=== PATIENT | female | born 1945 | race Caucasian/White ===

== ENCOUNTER → 2017-04-16 | Outpatient (CLI) | payer MEDICARE, BC, SELFPAY | PROVIDERS: Visit Provider Internal Medicine Adolescent Medicine | DX: R92.8 Other abnormal and inconclusive findings on diagnostic imaging of breast (principal) | CPT/HCPCS: 76641; 77065; G0206 ==

== ENCOUNTER → 2017-05-09 17:07 | Outpatient (CLI) | payer MEDICARE, BC, SELFPAY ==
[2017-05-09 17:42] LABS: Basophils % 0.5 % (0.1-2.0); Eosinophils # 0.2 K/mm3 (0.0-0.4); Eosinophils % 2.5 % (0.1-12.0); Hematocrit 37.6 % (37.0-47.0); Lymphocytes # 2.1 K/mm3 (0.7-4.5); Lymphocytes % 28.6 K/mm3 (10-50); Mean Corpuscular Hemoglobin 28.6 pg (27.0-31.2); Mean Corpuscular Volume 89.3 fl (81-99); Mean Platelet Volume 7.5 fl (7.4-10.4); Monocytes # 0.4 K/mm3 (0.1-1.0); Monocytes % 4.9 % (1.7-9.3); Neutrophils # 4.7 K/mm3 (1.8-7.8); Neutrophils % 63.5 % (37.0-80.0); Platelet Count 263 K/mm3 (142-424); Red Blood Count 4.21 M/mm3 (4.20-5.40); Red Cell Distribution Width 12.9 % (11.5-17.5); White Blood Count 7.4 K/mm3 (4.8-10.8)
[2017-05-09 18:26] LABS: Hemoglobin A1C 9.3 % (0.0-7.0)
[2017-05-09 19:13] LABS: Alanine Aminotransferase 48 U/L (12-78); Albumin Level 4.1 gm/dL (3.4-5.0); Albumin/Globulin Ratio 1.1 (1.1-1.8); Alkaline Phosphatase 150 U/L (46-116); Amylase 22 U/L (25-125); Anion Gap 16.5 mEq/L (5-15); Aspartate Amino Transferase 67 U/L (15-37); Bilirubin,Total 0.4 mg/dL (0.2-1.0); Blood Urea Nitrogen 21 mg/dL (7-18); Calcium 8.8 mg/dL (8.5-10.1); Carbon Dioxide 27 mmol/L (21.0-32.0); Chloride 95 mmol/L (98-107); Creatinine,Serum 1.29 mg/dL (0.55-1.02); Estimated Glomerular Filt Rate 41 ml/min (>60); GFR (African American) 50 ML/MIN (>60); Globulin 3.7 gm/dl (1.3-3.2); Glucose 176 mg/dL (74-106); Lipase 101 u/L (73-393); Potassium 4.5 mmoL/L (3.5-5.1); Sodium 134 mmol/L (136-145); Thyroid Stimulating Hormone 3.22 uIU/ml (0.358-3.740); Total Protein,Serum 7.8 gm/dL (6.4-8.2)
== END ==
PROVIDERS: PCP Internal Medicine Adolescent Medicine; Visit Provider Internal Medicine Adolescent Medicine
DX: E11.9 Type 2 diabetes mellitus without complications (principal); R10.84 Generalized abdominal pain; K58.0 Irritable bowel syndrome with diarrhea
CPT/HCPCS: 36415; 80053; 82150; 83036; 83690; 84443; 85025

== ENCOUNTER → 2017-06-10 09:22 | Outpatient (CLI) | payer MEDICARE, BC, SELFPAY ==
--- NOTE | 2017-06-10 | MM_ITS ---
MM stereotactic loc LT MM Dig mamm DX unilat LT CAD, STEREOTACTIC vacuum-assisted core biopsy, w/ clip placement SPECIMEN RADIOGRAPH DIAGNOSTIC left MAMMOGRAM POST BIOPSY LIMITED HISTORY AND PHYSICAL EXAM LIMITED FOCUSED H&P: HISTORY: Additional breast density with with slight progression of associated Breast calcifications Limited physical exam performed by Dr. Angeles. Lungs: Clear. Heart: Regular rate and rhythm. Mental status: Within normal limits. PROCEDURE: STEREOTACTIC VACUUM-ASSISTED CORE BX, W/ CLIP PLACEMENT: Prior mammogram showed slight progression calcifications in density at the medial deep left breast on March 2017 mammogram.. The patient was given 1 mg of Xanax, Lortab 5 mg, prior to procedure for mild analgesia and minor sedation. The patient was placed on stereotactic table & area of concern localized in the most appropriate projection. The breast was prepped in the routine manner, with sterile prep and the overlying skin anesthetized. A 2 -3 mm skin incision was performed and the 9 gauge sorus vacuum-assisted core biopsy needle was advanced to the region of the calcification. Pre- and post fire images were obtained. After adequate positioning relative to the calcifications was ensured, multiple biopsies were obtained in the region of the calcifications specifically. The multiple core biopsies obtained were sent for specimen mammography. After the calcifications were indeed identified on the specimen mammogram, the procedure was terminated.A tiny titanium nonferromagnetic MicroMark was positioned through the mammotome needle into the biopsy site . The patient tolerated the procedure well without complications. Specimen was sent for pathologic analysis. IMPRESSION 1. Successful stereotactic vacuum-assisted core biopsy, with adequate sampling, (and removal) of the small area of targeted calcifications. The calcifications are evident on the subsequent specimen radiograph Successful stereotactic vacuum-assisted core biopsy of these breast calcifications. 2. Successful placement of a titanium metal MicroMark. 3. No evidence complications. SPECIMEN RADIOGRAPH: The mammographically evident calcifications from the prior study are currently evident within the John dish and within the specimens obtained during mammotome procedure. This is considered an adequate specimen and the procedure was terminated. IMPRESSION: Successful removal of described breast calcifications. Successful stereotactic biopsy Left BREAST DIAGNOSTIC MAMMOGRAM - post biopsy Compared to the prior study, the region of previously noted calcification have been removed. A small MicroMark clip was inserted into the region of the calcifications. There is evidence of soft tissue changes in the region of the biopsy was soft tissue gas and edema. A fairly large biopsy defect with air-fluid level reflecting some minimal bleeding into the area IMPRESSION: 1. Successful stereotactic biopsy with clip placement 2. Adequate placement of the MicroMark clip postbiopsy. . Postbiopsy changes evident on postbiopsy mammogram. PATHOLOGY report: Benign findings. Negative for malignancy. No atypia. Hyalinized fibroadenoma with calcification. Sclerosing adenosis.
== END ==
PROVIDERS: Family Provider Internal Medicine Adolescent Medicine; PCP Internal Medicine Adolescent Medicine; Visit Provider Internal Medicine Adolescent Medicine
DX: N63.23 Unspecified lump in the left breast, lower outer quadrant (principal)
CPT/HCPCS: 19081; 77065; 88305

== ENCOUNTER → 2017-10-09 15:23 | Outpatient (CLI) | payer MEDICARE, BC, SELFPAY ==
[2017-10-09 15:57] LABS: Basophils % 0.5 % (0.1-2.0); Eosinophils # 0.1 K/mm3 (0.0-0.4); Eosinophils % 2.4 % (0.1-12.0); Hematocrit 38.2 % (37.0-47.0); Hemoglobin 11.7 g/dL (12.2-16.2); Lymphocytes # 1.5 K/mm3 (0.7-4.5); Mean Corpuscular HGB Conc 30.6 g/dL (31.8-35.4); Mean Corpuscular Hemoglobin 26.7 pg (27.0-31.2); Mean Corpuscular Volume 87.4 fl (81-99); Mean Platelet Volume 7.4 fl (7.4-10.4); Monocytes # 0.3 K/mm3 (0.1-1.0); Monocytes % 6.4 % (1.7-9.3); Neutrophils # 2.5 K/mm3 (1.8-7.8); Neutrophils % 57.7 % (37.0-80.0); Platelet Count 210 K/mm3 (142-424); Red Blood Count 4.37 M/mm3 (4.20-5.40); Red Cell Distribution Width 14.4 % (11.5-17.5); White Blood Count 4.4 K/mm3 (4.8-10.8)
[2017-10-09 16:13] LABS: Anion Gap 15.3 mEq/L (5-15); Blood Urea Nitrogen 18 mg/dL (7-18); Calcium 8.8 mg/dL (8.5-10.1); Carbon Dioxide 26 mmol/L (21.0-32.0); Chloride 99 mmol/L (98-107); Creatinine,Serum 1.26 mg/dL (0.55-1.02); Estimated Glomerular Filt Rate 42 ml/min (>60); GFR (African American) 51 ML/MIN (>60); Glucose 183 mg/dL (74-106); Potassium 4.3 mmoL/L (3.5-5.1); Sodium 136 mmol/L (136-145)
== END ==
PROVIDERS: Visit Provider Colon & Rectal Surgery
DX: E07.9 Disorder of thyroid, unspecified (principal); I25.10 Atherosclerotic heart disease of native coronary artery without angina pectoris; E11.9 Type 2 diabetes mellitus without complications
CPT/HCPCS: 36415; 80048; 85025; 93005

== ENCOUNTER → 2017-11-24 09:50 | Outpatient (CLI) | payer MEDICARE, BC, SELFPAY ==
[2017-11-24 13:48] LABS: Alanine Aminotransferase 42 U/L (12-78); Albumin Level 3.9 gm/dL (3.4-5.0); Alkaline Phosphatase 119 U/L (46-116); Anion Gap 15.5 mEq/L (5-15); Aspartate Amino Transferase 38 U/L (15-37); Bilirubin,Total 0.3 mg/dL (0.2-1.0); Blood Urea Nitrogen 17 mg/dL (7-18); Calcium 9.2 mg/dL (8.5-10.1); Carbon Dioxide 28 mmol/L (21.0-32.0); Chloride 101 mmol/L (98-107); Chol/HDL Ratio 4.5 (1-3.5); Cholesterol 171 mg/dL (140-200); Creatinine,Serum 1.41 mg/dL (0.55-1.02); Estimated Glomerular Filt Rate 37 ml/min (>60); GFR (African American) 45 ML/MIN (>60); Globulin 3.8 gm/dl (1.3-3.2); Glucose 213 mg/dL (74-106); HDL Cholesterol 38 mg/dL (29-89); LDL Cholesterol 101 mg/dL (0-130); Potassium 4.5 mmoL/L (3.5-5.1); Sodium 140 mmol/L (136-145); Thyroid Stimulating Hormone 2.97 uIU/ml (0.358-3.740); Total Protein,Serum 7.7 gm/dL (6.4-8.2); Triglycerides 161 mg/dL (30-200); VLDL Cholesterol 32 mg/dL (0-40)
== END ==
PROVIDERS: Visit Provider Internal Medicine Adolescent Medicine
DX: E11.9 Type 2 diabetes mellitus without complications (principal); E78.5 Hyperlipidemia, unspecified; E03.9 Hypothyroidism, unspecified
CPT/HCPCS: 36415; 80053; 80061; 83036; 84443

== ENCOUNTER → 2018-02-13 15:52 | Outpatient (CLI) | payer MEDICARE, BC, SELFPAY ==
[2018-02-13 17:20] LABS: Anion Gap 17.3 mEq/L (5-15); Blood Urea Nitrogen 14 mg/dL (7-18); Calcium 9.1 mg/dL (8.5-10.1); Carbon Dioxide 25 mmol/L (21.0-32.0); Chloride 98 mmol/L (98-107); Creatinine,Serum 1.24 mg/dL (0.55-1.02); Estimated Glomerular Filt Rate 43 ml/min (>60); GFR (African American) 52 ML/MIN (>60); Glucose 137 mg/dL (74-106); Potassium 4.3 mmoL/L (3.5-5.1); Sodium 136 mmol/L (136-145)
[2018-02-13 19:29] LABS: Hemoglobin A1C 6.9 % (0.0-7.0)
== END ==
PROVIDERS: PCP Internal Medicine Adolescent Medicine; Visit Provider Internal Medicine Adolescent Medicine
DX: E11.9 Type 2 diabetes mellitus without complications (principal)
CPT/HCPCS: 36415; 80048; 83036

== ENCOUNTER → 2018-05-11 10:13 | Outpatient (POV) | payer MEDICARE, BC, SELFPAY | PROVIDERS: Visit Provider Nurse Practitioner Acute Care | DX: Z00.00 Encounter for general adult medical examination without abnormal findings (principal) ==

== ENCOUNTER → 2018-05-13 16:00 | Outpatient (CLI) | payer MEDICARE, BC, SELFPAY ==
[2018-05-14 15:35] LABS: Adenovirus F 40/41, stool Not Detected (NotDetected); Astrovirus Not Detected (NotDetected); Campylobacter Not Detected (NotDetected); Clostridium Difficile A/B, PCR Not Detected (NotDetected); Cryptosporidium Not Detected (NotDetected); Cyclospora Cayetanesis Not Detected (NotDetected); Entamoeba histolytica Not Detected (NotDetected); Enteroaggregative E coli Not Detected (NotDetected); Enteropathogenic E coli Not Detected (NotDetected); Enterotoxigenic E coli Not Detected (NotDetected); Giardia lamblia Not Detected (NotDetected); Norovirus Not Detected (NotDetected); Plesimonas Shigalloides, PCR Not Detected (NotDetected); Rotavirus A Not Detected (NotDetected); Salmonella, PCR Not Detected (NotDetected); Sapovirus Not Detected (NotDetected); Shiga-like toxin E coli Not Detected (NotDetected); Shigella Enterovasive E coli Not Detected (NotDetected); Vibrio Cholerae Not Detected (NotDetected); Vibrio, PCR Not Detected (NotDetected); Yersinia Entercolitica, PCR Not Detected (NotDetected)
== END ==
PROVIDERS: Visit Provider Nurse Practitioner Acute Care
DX: R19.7 Diarrhea, unspecified (principal); R19.4 Change in bowel habit
CPT/HCPCS: 87507

== ENCOUNTER → 2018-10-07 10:57 | Outpatient (CLI) | payer MEDICARE, BC, SELFPAY ==
[2018-10-07 11:43] LABS: Basophils % 0.4 % (0.1-2.0); Eosinophils # 0.1 K/mm3 (0.0-0.4); Eosinophils % 1.8 % (0.1-12.0); Hematocrit 33.4 % (37.0-47.0); Hemoglobin 10.6 g/dL (12.2-16.2); Lymphocytes # 2.2 K/mm3 (0.7-4.5); Lymphocytes % 32.6 % (10-50); Mean Corpuscular HGB Conc 31.7 g/dL (31.8-35.4); Mean Corpuscular Hemoglobin 27.1 pg (27.0-31.2); Mean Corpuscular Volume 85.4 fl (81-99); Mean Platelet Volume 7.1 fl (7.4-10.4); Monocytes # 0.4 K/mm3 (0.1-1.0); Monocytes % 5.8 % (1.7-9.3); Neutrophils % 59.4 % (37.0-80.0); Platelet Count 260 K/mm3 (142-424); Red Blood Count 3.91 M/mm3 (4.20-5.40); Red Cell Distribution Width 13.8 % (11.5-17.5); White Blood Count 6.8 K/mm3 (4.8-10.8)
[2018-10-07 12:40] LABS: Alanine Aminotransferase 21 U/L (12-78); Albumin/Globulin Ratio 1.2 (1.1-1.8); Alkaline Phosphatase 80 U/L (46-116); Anion Gap 13.3 mEq/L (5-15); Aspartate Amino Transferase 17 U/L (15-37); Bilirubin,Total 0.4 mg/dL (0.2-1.0); Blood Urea Nitrogen 22 mg/dL (7-18); Calcium 8.5 mg/dL (8.5-10.1); Carbon Dioxide 25 mmol/L (21.0-32.0); Chloride 99 mmol/L (98-107); Chol/HDL Ratio 3.2 (1-3.5); Cholesterol 151 mg/dL (140-200); Estimated Glomerular Filt Rate 34 ml/min (>60); GFR (African American) 42 ML/MIN (>60); Globulin 3.3 gm/dl (1.3-3.2); Glucose 103 mg/dL (74-106); HDL Cholesterol 47 mg/dL (29-89); LDL Cholesterol 78 mg/dL (0-130); Potassium 4.3 mmoL/L (3.5-5.1); Sodium 133 mmol/L (136-145); T4 (Thyroxine) 11.7 ug/dl (4.7-13.3); Thyroid Stimulating Hormone 1.04 uIU/ml (0.358-3.740); Total Protein,Serum 7.3 gm/dL (6.4-8.2); Triglycerides 130 mg/dL (30-200); Triiodothryronine (T3) Uptake 34 % (31-39); VLDL Cholesterol 26 mg/dL (0-40)
[2018-10-07 13:14] LABS: Hemoglobin A1C 6.1 % (0.0-7.0)
[2018-10-08 18:56] LABS: Vitamin B12 792 pg/mL (232-1245)
== END ==
PROVIDERS: Visit Provider Internal Medicine Adolescent Medicine
DX: E78.5 Hyperlipidemia, unspecified (principal); E03.9 Hypothyroidism, unspecified; E53.8 Deficiency of other specified B group vitamins; E11.9 Type 2 diabetes mellitus without complications; Z79.84 Long term (current) use of oral hypoglycemic drugs
CPT/HCPCS: 36415; 80053; 80061; 82607; 83036; 84436; 84443; 84479; 85025

== ENCOUNTER → 2019-01-18 10:58 | Outpatient (CLI) | payer MEDICARE, BC, SELFPAY ==
[2019-01-18 11:02] LABS: Microscopic, Urine URINE MICROSCOPIC (MICROSCOPIC)
[2019-01-18 11:35] LABS: Basophils % 0.6 % (0.1-2.0); Eosinophils # 0.1 K/mm3 (0.0-0.4); Eosinophils % 1.8 % (0.1-12.0); Hematocrit 32.6 % (37.0-47.0); Hemoglobin 9.9 g/dL (12.2-16.2); Lymphocytes # 1.5 K/mm3 (0.7-4.5); Lymphocytes % 38.5 % (10-50); Mean Corpuscular HGB Conc 30.4 g/dL (31.8-35.4); Mean Corpuscular Hemoglobin 26.9 pg (27.0-31.2); Mean Corpuscular Volume 88.3 fl (81-99); Mean Platelet Volume 7.7 fl (7.4-10.4); Monocytes # 0.3 K/mm3 (0.1-1.0); Monocytes % 6.4 % (1.7-9.3); Neutrophils # 2.1 K/mm3 (1.8-7.8); Neutrophils % 52.8 % (37.0-80.0); Platelet Count 202 K/mm3 (142-424); Red Blood Count 3.69 M/mm3 (4.20-5.40); Red Cell Distribution Width 14.2 % (11.5-17.5)
[2019-01-18 14:26] LABS: Alanine Aminotransferase 13 U/L (12-78); Albumin Level 3.7 gm/dL (3.4-5.0); Albumin/Globulin Ratio 1.1 (1.1-1.8); Alkaline Phosphatase 83 U/L (46-116); Anion Gap 14.3 mEq/L (5-15); Aspartate Amino Transferase 14 U/L (15-37); Bilirubin,Total 0.2 mg/dL (0.2-1.0); Blood Urea Nitrogen 20 mg/dL (7-18); Calcium 8.7 mg/dL (8.5-10.1); Carbon Dioxide 28 mmol/L (21.0-32.0); Chloride 101 mmol/L (98-107); Chol/HDL Ratio 3.1 (1-3.5); Cholesterol 140 mg/dL (140-200); Creatinine,Serum 1.18 mg/dL (0.55-1.02); Estimated Glomerular Filt Rate 45 ml/min (>60); GFR (African American) 55 ML/MIN (>60); Globulin 3.5 gm/dl (1.3-3.2); Glucose 123 mg/dL (74-106); HDL Cholesterol 45 mg/dL (29-89); LDL Cholesterol 64 mg/dL (0-130); Potassium 4.3 mmoL/L (3.5-5.1); Sodium 139 mmol/L (136-145); Thyroid Stimulating Hormone 1.13 uIU/ml (0.358-3.740); Total Protein,Serum 7.2 gm/dL (6.4-8.2); Triglycerides 154 mg/dL (30-200); VLDL Cholesterol 31 mg/dL (0-40)
[2019-01-18 14:49] LABS: Appearance,Urine CLEAR (Clear); Bilirubin,Urine Negative (Negative); Blood, Urine Negative (Negative); Color,Urine YELLOW (Yellow); Glucose,Urine (UA) Negative (Negative); Ketones,Urine Negative (Negative); Leukocyte Esterase,Urine 1+ (Negative); Nitrate,Urine Negative (Negative); PH,Urine 5.5 (5.0-8.5); Protein,Urine Negative (Negative); Urobilinogen,Urine 0.2 EU/dl (0.2)
[2019-01-18 14:56] LABS: Hemoglobin A1C 5.7 % (0.0-7.0)
[2019-01-18 15:33] LABS: Bacteria,Urine 3+ /lpf
[2019-01-21 06:10] LABS: Vitamin B12 515 pg/mL (232-1245)
== END ==
PROVIDERS: Visit Provider Internal Medicine Adolescent Medicine
DX: E11.9 Type 2 diabetes mellitus without complications (principal); R39.15 Urgency of urination; E53.8 Deficiency of other specified B group vitamins; E03.9 Hypothyroidism, unspecified; E78.5 Hyperlipidemia, unspecified; Z79.84 Long term (current) use of oral hypoglycemic drugs
CPT/HCPCS: 36415; 80053; 80061; 81001; 82607; 83036; 84443; 85025; 87086; 87088; 87186

== ENCOUNTER → 2019-05-15 10:55 | Outpatient (CLI) | payer MEDICARE, BC, SELFPAY ==
--- NOTE | 2019-05-15 11:19 | XR_ITS ---
PROCEDURE: XR SACRUM COCCYX MIN 2V CLINICAL INDICATION: COMPARISON: No exams were available for comparison FINDINGS: There is no acute fracture dislocation. There is mild sclerosis without ankylosis along both sacroiliac joints with vacuum phenomenon findings consistent with mild bilateral sacroiliitis. Or other focal bony lesion IMPRESSION: No acute findings. Bilateral sacroiliitis. Dictated by: Manan Espino 05/15/2019 11:56 Electronically signed by Manan Espino in [place] 05/15/2019 11:56
--- NOTE | 2019-05-15 11:19 | XR_ITS ---
PROCEDURE: XR LUMBAR SPINE MIN 4V CLINICAL INDICATION: coccydynia COMPARISON: XR SPINE LUMBAR MIN 2 VIEWS from 02/03/2014 FINDINGS: There is no acute fracture. Posterior metal reduction rods with bi pedicular screws are noted at L3-4. Metallic densities are seen within L3-4 L4-5 disc spaces with bone graft fragment at L4-5. A left laminectomy defect is present L4-5. There is approximately 5 millimeters anterior subluxation of L4 on L5. Bone density consistent with graft fragment and/or osteophyte is seen projecting posterior to the vertebral body endplates at L4-5 causing some central canal impingement. There is decreased disc space heights L3-4 and L4-5. Facet sclerosis and hypertrophy are noted bilaterally at L4-5 L5-S1. There is sclerosis and vacuum phenomenon at both sacroiliac joints compatible with sacroiliitis. Extensive atherosclerotic vascular calcifications are noted. IMPRESSION: No acute findings. Degenerative and postsurgical findings. Dictated by: Manan Espino 05/15/2019 11:54 Electronically signed by Manan Espino in [place] 05/15/2019 11:54
[2019-05-15 11:28] LABS: Basophils % 0.8 % (0.1-2.0); Eosinophils # 0.1 K/mm3 (0.0-0.4); Eosinophils % 2.6 % (0.1-12.0); Hemoglobin 11.2 g/dL (12.2-16.2); Lymphocytes # 1.9 K/mm3 (0.7-4.5); Lymphocytes % 40.5 % (10-50); Mean Corpuscular Hemoglobin 27.6 pg (27.0-31.2); Mean Corpuscular Volume 86.3 fl (81-99); Mean Platelet Volume 7.5 fl (7.4-10.4); Monocytes # 0.3 K/mm3 (0.1-1.0); Monocytes % 5.9 % (1.7-9.3); Neutrophils # 2.3 K/mm3 (1.8-7.8); Neutrophils % 50.3 % (37.0-80.0); Platelet Count 249 K/mm3 (142-424); Red Blood Count 4.05 M/mm3 (4.20-5.40); Red Cell Distribution Width 13.4 % (11.5-17.5); White Blood Count 4.6 K/mm3 (4.8-10.8)
[2019-05-15 13:18] LABS: Hemoglobin A1C 5.7 % (0.0-7.0)
[2019-05-15 13:32] LABS: Alanine Aminotransferase 17 U/L (12-78); Albumin Level 4.2 gm/dL (3.4-5.0); Albumin/Globulin Ratio 1.4 (1.1-1.8); Alkaline Phosphatase 79 U/L (46-116); Anion Gap 15.1 mEq/L (5-15); Aspartate Amino Transferase 17 U/L (15-37); Bilirubin,Total 0.4 mg/dL (0.2-1.0); Blood Urea Nitrogen 21 mg/dL (7-18); Carbon Dioxide 26 mmol/L (21.0-32.0); Chloride 100 mmol/L (98-107); Chol/HDL Ratio 3.1 (1-3.5); Cholesterol 145 mg/dL (140-200); Creatinine,Serum 1.43 mg/dL (0.55-1.02); Estimated Glomerular Filt Rate 36 ml/min (>60); GFR (African American) 44 ML/MIN (>60); Globulin 3.1 gm/dl (1.3-3.2); Glucose 103 mg/dL (74-106); HDL Cholesterol 47 mg/dL (29-89); LDL Cholesterol 79 mg/dL (0-130); Magnesium 1.3 mg/dL (1.4-2.2); Potassium 4.1 mmoL/L (3.5-5.1); Sodium 137 mmol/L (136-145); Thyroid Stimulating Hormone 0.75 uIU/ml (0.358-3.740); Total Protein,Serum 7.3 gm/dL (6.4-8.2); Triglycerides 93 mg/dL (30-200); VLDL Cholesterol 19 mg/dL (0-40)
[2019-05-16 11:00] LABS: Vitamin B12 636 pg/mL (232-1245)
== END ==
PROVIDERS: Visit Provider Internal Medicine Adolescent Medicine
DX: E03.9 Hypothyroidism, unspecified (principal); E78.5 Hyperlipidemia, unspecified; E53.8 Deficiency of other specified B group vitamins; E83.42 Hypomagnesemia; M53.3 Sacrococcygeal disorders, not elsewhere classified; E11.9 Type 2 diabetes mellitus without complications; Z79.84 Long term (current) use of oral hypoglycemic drugs
CPT/HCPCS: 36415; 72110; 72220; 80053; 80061; 82607; 83036; 83735; 84443; 85025

== ENCOUNTER → 2019-06-17 10:24 | Outpatient (CLI) | payer MEDICARE, BC, SELFPAY ==
--- NOTE | 2019-06-17 10:26 | MM_ITS ---
PROCEDURE: MM DIG SCREENING MAMM BI W/CAD CLINICAL INDICATION: SCREENING There is no personal or family history of breast cancer. There has been previous biopsies on each breast for benign disease. COMPARISON: DMSB DIG MAMM-SCREEN ELSA W/CAD from 03/21/2017 DMDXUAVL DIG MAMM-DX UNI A/VWS-LT W/CAD from 04/16/2017 DXLT MM Dig mamm DX unilat LT CAD from 06/10/2017 TECHNIQUE: Standard CC and MLO images and 3D Tomosynthesis was obtained. R2 CAD reviewed. FINDINGS: Scattered fibroglandular densities are seen throughout both breasts. The findings are fairly symmetrical bilaterally. There are scattered benign-appearing microcalcifications in each breast.. Herb images were reviewed showing no suspicious abnormality in either breast. There are no suspicious microcalcifications. There is very minimal post biopsy scarring left breast. IMPRESSION: Fibrofatty parenchyma with no suspicious lesions seen BI-RAD Category: 2 Benign Finding(s) FOLLOW-UP: 1YR 1 Year Follow-up (A letter has been sent to the patient regarding results of the study.) Dictated by: Dr. Bryce Lau MD 06/22/2019 13:[address] Bryce Lau MD in [place] 06/22/2019 13:38
== END ==
PROVIDERS: PCP Internal Medicine Adolescent Medicine; Visit Provider Internal Medicine Adolescent Medicine
DX: Z12.31 Encounter for screening mammogram for malignant neoplasm of breast (principal)
CPT/HCPCS: 77063; 77067

== ENCOUNTER → 2019-08-19 10:16 | Outpatient (CLI) | payer MEDICARE, BC, SELFPAY ==
[2019-08-19 11:12] LABS: Basophils % 0.5 % (0.1-2.0); Eosinophils # 0.1 K/mm3 (0.0-0.4); Eosinophils % 1.7 % (0.1-12.0); Hematocrit 32.7 % (37.0-47.0); Hemoglobin 10.3 g/dL (12.2-16.2); Lymphocytes # 1.7 K/mm3 (0.7-4.5); Lymphocytes % 36.8 % (10-50); Mean Corpuscular HGB Conc 31.5 g/dL (31.8-35.4); Mean Corpuscular Hemoglobin 27.1 pg (27.0-31.2); Mean Corpuscular Volume 85.8 fl (81-99); Mean Platelet Volume 7.9 fl (7.4-10.4); Monocytes # 0.3 K/mm3 (0.1-1.0); Monocytes % 7.2 % (1.7-9.3); Neutrophils # 2.5 K/mm3 (1.8-7.8); Neutrophils % 53.9 % (37.0-80.0); Platelet Count 290 K/mm3 (142-424); Red Blood Count 3.81 M/mm3 (4.20-5.40); Red Cell Distribution Width 14.4 % (11.5-17.5); White Blood Count 4.6 K/mm3 (4.8-10.8)
[2019-08-19 11:24] LABS: Alanine Aminotransferase 13 U/L (12-78); Albumin Level 4.7 g/dl (3.5-5.0); Albumin/Globulin Ratio 1.7 (1.1-1.8); Alkaline Phosphatase 68 U/L (38-126); Aspartate Amino Transferase 26 U/L (14-36); Bilirubin,Total 0.4 mg/dl (0.2-1.3); Blood Urea Nitrogen 17 mg/dl (7-17); Carbon Dioxide 25 mmol/L (22.0-30.0); Chloride 98 mmol/L (98-107); Chol/HDL Ratio 2.4 (1-3.5); Cholesterol 139 mg/dl (140-200); Estimated Glomerular Filt Rate 34 ml/min (>60); GFR (African American) 41 ML/MIN (>60); Globulin 2.8 g/dL (1.3-3.2); Glucose 107 mg/dl (74-100); HDL Cholesterol 57 mg/dl (40-60); Sodium 133 mmol/L (136-145); Total Protein,Serum 7.5 g/dl (6.3-8.2); Triglycerides 127 mg/dl (30-150); VLDL Cholesterol 25 mg/dL (0-40)
[2019-08-19 11:55] LABS: Thyroid Stimulating Hormone 0.18 uIU/mL (0.465-4.68)
[2019-08-20 09:25] LABS: Vitamin B12 393 pg/mL (232-1245)
== END ==
PROVIDERS: Visit Provider Internal Medicine Adolescent Medicine
DX: E03.9 Hypothyroidism, unspecified (principal); E53.8 Deficiency of other specified B group vitamins; E78.5 Hyperlipidemia, unspecified; K58.0 Irritable bowel syndrome with diarrhea; E11.9 Type 2 diabetes mellitus without complications; Z79.84 Long term (current) use of oral hypoglycemic drugs
CPT/HCPCS: 36415; 80053; 80061; 82607; 83036; 84443; 85025

== ENCOUNTER 2019-10-07 17:59 | Emergency (ER) | payer MEDICARE, BC, SELFPAY ==
[2019-10-07 18:01] VITALS: BP 215/92; PULSE 110; RESP 18; TEMP 36.8; O2SAT 94; BMI 28.3
--- NOTE | 2019-10-07 18:09 | CT_ITS ---
PROCEDURE: CT HEAD/BRAIN WO CON CLINICAL INDICATION: FAll Head injury with headache/pain, contusion, abrasion or hematoma, bruising around both eyes, history of subdural hematoma COMPARISON: HEADWO CT head/brain wo con from 10/14/2018 TECHNIQUE: Axial images obtained. All CT scans at the facility use one or more dose reduction, viz: automated exposure control, ma/kV adjustment per patient size (including targeted exams where dose is matched to indication, i.e. head), or iterative reconstruction technique. FINDINGS: No midline shift, mass effect, intracranial hemorrhage, hydrocephalus, or extra-axial fluid collection is evident. There is generalized atrophy with hypoattenuation of the periventricular white matter consistent with microangiopathic changes. The calvarium has an unremarkable appearance. No mastoid effusion. There is soft tissue swelling in the right frontal region of the scalp consistent with hematoma. IMPRESSION: Right frontal scalp hematoma otherwise negative Dictated by: Parker Pastor MD 10/07/2019 21:19 Electronically signed by Parker Pastor MD in [place] 10/07/2019 21:19
--- NOTE | 2019-10-07 18:09 | CT_ITS ---
PROCEDURE: CT CERVICAL SPINE WO CON CLINICAL INDICATION: FAll Neck injury with pain, contusion/abrasion or hematoma, cervical sprain/strain the COMPARISON: [facility] CT cervical spine wo con from 10/14/2018 TECHNIQUE: Axial images obtained with sagittal and coronal reformats. All CT scans at the facility use one or more dose reduction, viz: automated exposure control, ma/kV adjustment per patient size (including targeted exams where dose is matched to indication, i.e. head), or iterative reconstruction technique. Axial spiral CT scanning performed of the cervical spine beginning at the base of the skull and continuing to the upper T-spine. 3-D multiplanar reconstruction with 3-D manipulation of volumetric data set in image rendering was completed by the radiologist and/or technologist with the supervision of the radiologist on independent workstation. FINDINGS: Normal alignment. No acute fracture or dislocation. C2-C3: Unremarkable. C3-C4: Mild left foraminal narrowing from facet hypertrophy. C4-C5: Mild facet hypertrophy on the left with foraminal narrowing. Degenerative disc disease. C5-C6: Mild left-sided facet hypertrophy with foraminal narrowing. C6-C7 and C7-T1 are unremarkable. Lung apices are clear. IMPRESSION: 1. No acute fracture. 2. Mild cervical spondylosis Dictated by: Parker Pastor MD 10/07/2019 21:24 Electronically signed by Parker Pastor MD in [place] 10/07/2019 21:24
--- NOTE | 2019-10-07 18:37 | PC.NURSE ---
Pt with rad.
--- NOTE | 2019-10-07 18:49 | PC.NURSE ---
pt returned from rad
--- NOTE | 2019-10-07 19:11 | HMH.EDGENADL ---
ED Disposition Clinical Impression: Multiple contusions Disposition: Home, Self-Care Condition on Discharge: Good Instructions: How to Prevent Falls Prescriptions: Nabumetone 750 mg PO BID 10 Days #20 tab Transmission Status: Pending to [id number] Referrals: Sravan Anderson MD [Primary Care Provider] - - Critical Care Critical Care Time: No Attestation: On 10/07/19, the high probability of a clinically significant, sudden or life threatening deterioration of the following system(s) required my full and direct attention, intervention and personal management. The time I documented below is in addition to time spent performing reported procedures but includes the following listed in this critical care notation. Medical Decision Making - Medical Records Medical records reviewed: Yes: I reviewed the patient's medical records. - Moe Inquiry Pt receiving controlled substance: No - Lab Data Lab results reviewed: Yes: I reviewed the patient's lab results. Orders (Tests/Meds): ORDERS Category Date Time Status CT cervical spine wo con Stat Cat Scan 10/07/19 18:[address] head/brain wo con Stat Cat Scan 10/07/19 18:09 Taken - CT Data CT Scan: Head Time Received: 18:00 Preliminary Findings: Normal/NAD General Adult HPI - General Chief complaint: Fall Stated complaint: AO Fell 10/05 1929 Hit head, can't see,sleeping Time Seen by Provider: 10/07/19 18:00 Source of Information: Patient - History of Present Illness HPI narrative: 73-year-old female presents the ED after a fall 4 days ago. She states that she was walking through her kitchen and she tripped over a dog toy and slipped and hit her head on the floor. Her wanted to come to the ED 4 days ago however patient refused. She presents today with a slight headache and she just worried that there could be something going on. Patient denies any other neurological symptoms patient denies any recent fever shakes or chills. - Related Data Home Medications Medication Instructions Recorded Confirmed Diclofenac Sodium [Diclofenac 75mg 75 mg PO BID 06/26/18 10/14/18 Tab] Donepezil HCl [Donepezil ODT 5mg] 5 mg PO DAILY 06/26/18 10/14/18 Escitalopram Oxalate 10 mg PO DAILY 06/26/18 10/14/18 Indapamide [Lozol 2.5mg tablet] 2.5 mg PO DAILY 06/26/18 10/14/18 Levothyroxine Sodium 100 mg PO DAILY 06/26/18 10/14/18 [Levothyroxine 100mcg (0.1MG) Tab] Losartan Potassium 100 mg PO DAILY 06/26/18 10/14/18 Memantine HCl [Memantine 10mg 10 mg PO BID 06/26/18 10/14/18 Tablet] Pantoprazole Sodium [Protonix 40mg 40 mg PO DAILY 06/26/18 10/14/18 tablet] Pravastatin Sodium 80 mg PO DAILY 06/26/18 10/14/18 Quetiapine Fumarate 100 mg PO DAILY 06/26/18 10/14/18 Sitagliptin Phos/Metformin HCl 1 tab PO DAILY 06/26/18 10/14/18 [Janumet 50-1,000 mg Tablet] Trazodone HCl 50 mg PO DAILY 06/26/18 10/14/18 raNITIdine HCL [Ranitidine HCl] 300 mg PO DAILY 06/26/18 10/14/18 Cetirizine HCl [Zyrtec] 10 mg PO DAILY 10/14/18 10/14/18 Chlordiazepoxide/Clidinium Br 1 each PO QID 10/14/18 10/14/18 [Librax Capsule] Colesevelam HCl [Welchol] 625 mg PO DAILY 10/14/18 10/14/18 Melatonin 10 mg PO HS 10/14/18 10/14/18 calcium polycarbophiL [FiberCon 625 mg PO DAILY 10/14/18 10/14/18 625mg tablet] Previous Rx's Medication Instructions Recorded levoFLOXacin [Levaquin 500mg 500 mg PO DAILY #7 tab 10/14/18 tab] Nabumetone 750 mg PO BID 10 Days #20 tab 10/07/19 Allergies Allergy/AdvReac Type Severity Reaction Status Date / Time aspirin [ASPIRIN] Allergy Unknown Verified 08/29/18 18:25 hydroxyzine [HYDROXYZINE] Allergy Unknown Verified 08/29/18 18:25 meperidine [From DEMEROL] Allergy Unknown Verified 08/29/18 18:25 rosuvastatin [From CRESTOR] Allergy Unknown Verified 08/29/18 18:25 [facility] History - Hepatitis A Screen Drug use history?: (Working on discharge is) Attestation statement:: This patient has been screene
[2019-10-07 19:28] VITALS: BP 193/78; PULSE 110; RESP 18; TEMP 36.8; O2SAT 94
== END 2019-10-07 19:29 | disposition home or self-care (01) ==
PROVIDERS: Emergency Provider Family Medicine; PCP Internal Medicine Adolescent Medicine
DX: S00.83XA Contusion of other part of head, initial encounter (principal); T07.XXXA Unspecified multiple injuries, initial encounter; W01.0XXA Fall on same level from slipping, tripping and stumbling without subsequent striking against object, initial encounter; Y92.010 Kitchen of single-family (private) house as the place of occurrence of the external cause; I48.91 Unspecified atrial fibrillation; F41.8 Other specified anxiety disorders; K21.9 Gastro-esophageal reflux disease without esophagitis; Z90.49 Acquired absence of other specified parts of digestive tract; Z90.79 Acquired absence of other genital organ(s)
CPT/HCPCS: 70450; 72125; 99282

== ENCOUNTER 2019-12-30 18:31 | Emergency (ER) | payer MEDICARE, BC, SELFPAY ==
[2019-12-30 19:07] LABS: UTC Strep Screen (Rapid) Positive (Negative)
[2019-12-30 19:14] LABS: UTC Influenza A Antigen Negative (Negative)
[2019-12-30 19:15] LABS: UTC Influenza B Antigen Negative (Negative)
[2019-12-30 19:18] VITALS: BP 179/73; PULSE 77; RESP 14; TEMP 37; O2SAT 96; BMI 25.4
--- NOTE | 2019-12-30 19:22 | HMH.EDUTC ---
[facility] [place] Disposition Clinical Impression: Strep throat Disposition: Home, Self-Care Condition on Discharge: Good Instructions: Cefdinir, Strep Throat, Strep Throat (Alternative Therapy), Preventing the Spread of Coronavirus Discharge Instructions Additional Instructions: *Monitor Temp, Over the counter Motrin or Tylenol as directed/as needed Tylenol every 4 hours and Motrin every 6 hours (as long as your family doctor has told you that you can take it) for fever or pain. and straight to ER if unable to lower temp less than 101.0 after medication given *Warm salt water gargles may help to soothe the throat *Throat Lozenges *Warm fluids like tea with honey may help to soothe the throat *Sleep elevated *Humidifier/Vaporizer *Flonase 2 sprays in each nostril daily but be aware that it may take 2-3 days before you notice improvement Make sure to follow up and call back to the [facility] on Friday for your results of your COVID test if they are back Return if needed Follow up IMMEDIATELY for new or worsening symptoms or no Noticeable improvement over the next 48-72 hours. 911 for difficulty breathing or swallowing Prescriptions: Cefdinir [Omnicef 300mg Capsule] 300 mg PO BID #20 cap Transmission Status: Pending to [id number] Referrals: Sravan Anderson MD [Primary Care Provider] - As needed Time of Disposition: 19:41 Medical Decision Making - Moe Inquiry Pt receiving controlled substance: No Moe was queried for this patient: No Vital Signs: 12/30/19 19:18 Temperature 98.6 F Temperature Source Oral Pulse Rate [Right Brachial] 77 Respiratory Rate 14 Blood Pressure [Right Arm] 179/73 H Blood Pressure Mean [Right Arm] 108 Blood Pressure Source [Right Arm] Automatic Cuff Blood Pressure Position [Right Arm] Sitting 02 Sat by Pulse Oximetry 96 Oxygen Delivery Method Room Air - Lab Data Lab results reviewed: Yes: I reviewed the patient's lab results. Lab Results 12/30/19 19:05: Influenza Type A Ag Negative, Influenza Type B Ag Negative 12/30/19 19:05: Strep Scn Rapid Clinic Positive A Orders (Tests/Meds): ORDERS Category Date Time Status Covid-19 Nasal PCR Sendout [facility] Routine Lab 12/30/19 19:05 Ordered [facility] [place] HPI - General Stated complaint: Sore throat,RENE,Abd pain,chills,pain Time Seen by Provider: 12/30/19 19:22 Mode of Arrival: Ambulatory Source of Information: Patient Limitations: No Limitations Description of Symptoms (Recalled from Triage Doc. by RN): PATIENT C/O BODY ACHES, COUGH, SORE THROAT, RIGHT EAR PAIN, AND HEADACHE X 1 WEEK HEENT Symptoms (Recalled from RN notes): Yes Resp Symptoms (Recalled from RN notes): Yes Skin Symptoms (Recalled from RN notes): No MS Symptoms (Recalled from RN notes): No Functional Status (Recalled from RN notes): WNL - History of Present Illness Provider Complaint: Patient states that she has been having bodyaches, chills, sore throat, runny nose and over all not feeling well for about a week that has continued to get worse States that this evening her throat was hurting worse and felt scratchy and irritated states that she has been having a little sinus pain and pressure and headache - Related Data Home Medications Medication Instructions Recorded Confirmed Diclofenac Sodium [Diclofenac 75mg 75 mg PO BID 06/26/18 10/14/18 Tab] Donepezil HCl [Donepezil ODT 5mg] 5 mg PO DAILY 06/26/18 10/14/18 Escitalopram Oxalate 10 mg PO DAILY 06/26/18 10/14/18 Indapamide [Lozol 2.5mg tablet] 2.5 mg PO DAILY 06/26/18 10/14/18 Levothyroxine Sodium 100 mg PO DAILY 06/26/18 10/14/18 [Levothyroxine 100mcg (0.1MG) Tab] Losartan Potassium 100 mg PO DAILY 06/26/18 10/14/18 Memantine HCl [Memantine 10mg 10 mg PO BID 06/26/18 10/14/18 Tablet] Pantoprazole Sodium [Protonix 40mg 40 mg PO DAILY 06/26/18 10/14/18 tablet] Pravastatin Sodium 80 mg PO DAILY 06/26/18 10/14/18 Quetiapine Fumarate 100 mg PO DAILY 06/26/18 10/14/18 Sitagliptin Phos
[2019-12-30 19:55] VITALS: BP 179/73; PULSE 77; RESP 14; TEMP 37; O2SAT 96
[2020-01-01 14:09] LABS: Covid-19 Nasal PCR Sendout Lex Not Detected
== END 2019-12-30 19:57 | disposition home or self-care (01) ==
PROVIDERS: Emergency Provider Nurse Practitioner; PCP Internal Medicine Adolescent Medicine
DX: J02.0 Streptococcal pharyngitis (principal); Z20.828 Contact with and (suspected) exposure to other viral communicable diseases; I48.20 Chronic atrial fibrillation, unspecified; F41.8 Other specified anxiety disorders; K21.9 Gastro-esophageal reflux disease without esophagitis; Z79.899 Other long term (current) drug therapy
CPT/HCPCS: 87804; 87880; 99201; U0004

== ENCOUNTER 2020-03-03 17:24 | Emergency (ER) | payer MEDICARE, BC, SELFPAY ==
[2020-03-03 17:25] VITALS: BP 135/52; PULSE 95; RESP 14; TEMP 37.1; O2SAT 97; BMI 25.4
[2020-03-03 17:42] LABS: Apearance,Urine Cloudy (Clear); Color,Urine Dark Yellow (Yellow); PH,Urine 5.5 (5.0-8.5)
[2020-03-03 17:43] LABS: Bilirubin,Urine Negative (Negative); Blood, Urine 1+ (Negative); Glucose,Urine (UA) Negative (Negative); Ketones,Urine Negative (Negative); Protein,Urine 2+ (Negative); Urobilinogen,Urine 0.2 EU/dl (0.2)
[2020-03-03 17:44] LABS: UTC Leukocyte Esterase,Urine 3+ (Negative); UTC Nitrate,Urine Negative (Negative)
--- NOTE | 2020-03-03 17:54 | HMH.EDUTC ---
[facility] [place] Disposition Clinical Impression: UTI (urinary tract infection) Qualifiers: Urinary tract infection type: site unspecified Hematuria presence: with hematuria Qualified Code(s): N39.0 - Urinary tract infection, site not specified Disposition: Home, Self-Care Condition on Discharge: Good Instructions: Urinary Tract Infection Additional Instructions: Drink plenty of fluids. Take tylenol or ibuprofen for pain or fever. Take the medications as directed. Follow up with your regular doctor. GO TO THE ER FOR ANY WORSENING SYMPTOMS The pyridium will make your urine turn orange, this is an expected side effect. It will stain your clothes if it comes into contact with them. Prescriptions: Sulfamethoxazole/Trimethoprim [Bactrim DS tablet] 1 each PO BID 7 Days #14 tab Transmission Status: Received by [id number] Phenazopyridine HCl [Pyridium 200mg Tablet] 200 pow PO TID #6 tab Transmission Status[facility] Referrals: Sravan Anderson MD [Primary Care Provider] - Time of Disposition: 18:02 Medical Decision Making - Medical Records Medical records reviewed: No: I reviewed the patient's medical records. - Moe Inquiry Pt receiving controlled substance: No Vital Signs: 03/03/20 17:25 03/03/20 18:09 Temperature 98.7 F 98.7 F Temperature Source Oral Oral Pulse Rate 95 H Pulse Rate [Radial] 95 H Respiratory Rate 14 14 Blood Pressure 135/52 L Blood Pressure [Right Arm] 135/52 L Blood Pressure Mean [Right Arm] 79 Blood Pressure Source Automatic Cuff Blood Pressure Source [Right Arm] Automatic Cuff Blood Pressure Position Sitting Blood Pressure Position [Right Arm] Sitting 02 Sat by Pulse Oximetry 97 Oxygen Delivery Method Room Air Room Air - Lab Data Lab results reviewed: Yes: I reviewed the patient's lab results. Lab Results 03/03/20 17:41: Urine Color Dark yellow, Urine Appearance Cloudy, Urine pH 5.5, Ur Specific [place] 1.020, Urine Protein 2+, Urine Glucose (UA) Negative, Urine Ketones Negative, Urine Blood 1+, Urine Nitrate Negative, Urine Bilirubin Negative, Urine Urobilinogen 0.2, Ur Leukocyte Esterase 3+ A Orders (Tests/Meds): ORDERS Category Date Time Status Urine Culture Routine Micro 03/03/20 17:30 Received [facility] [place] HPI - General Stated complaint: possible kidney infection Time Seen by Provider: 03/03/20 17:54 Mode of Arrival: Ambulatory Source of Information: Patient Limitations: No Limitations Description of Symptoms (Recalled from Triage Doc. by RN): POSSIBLE UTI HEENT Symptoms (Recalled from RN notes): No Resp Symptoms (Recalled from RN notes): No Skin Symptoms (Recalled from RN notes): No MS Symptoms (Recalled from RN notes): No Functional Status (Recalled from RN notes): WNL - History of Present Illness Provider Complaint: She c/o 2 days of burning while urinating and low back pain. - Related Data Home Medications Medication Instructions Recorded Confirmed Diclofenac Sodium [Diclofenac 75mg 75 mg PO BID 06/26/18 10/14/18 Tab] Donepezil HCl [Donepezil ODT 5mg] 5 mg PO DAILY 06/26/18 10/14/18 Escitalopram Oxalate 10 mg PO DAILY 06/26/18 10/14/18 Indapamide [Lozol 2.5mg tablet] 2.5 mg PO DAILY 06/26/18 10/14/18 Levothyroxine Sodium 100 mg PO DAILY 06/26/18 10/14/18 [Levothyroxine 100mcg (0.1MG) Tab] Losartan Potassium 100 mg PO DAILY 06/26/18 10/14/18 Memantine HCl [Memantine 10mg 10 mg PO BID 06/26/18 10/14/18 Tablet] Pantoprazole Sodium [Protonix 40mg 40 mg PO DAILY 06/26/18 10/14/18 tablet] Pravastatin Sodium 80 mg PO DAILY 06/26/18 10/14/18 Quetiapine Fumarate 100 mg PO DAILY 06/26/18 10/14/18 Sitagliptin Phos/Metformin HCl 1 tab PO DAILY 06/26/18 10/14/18 [Janumet 50-1,000 mg Tablet] Trazodone HCl 50 mg PO DAILY 06/26/18 10/14/18 raNITIdine HCL [Ranitidine HCl] 300 mg PO DAILY 06/26/18 10/14/18 Cetirizine HCl [Zyrtec] 10 mg PO DAILY 10/14/18 10/14/18 Chlordiazepoxide/Cl
[2020-03-03 18:09] VITALS: BP 135/52; PULSE 95; RESP 14; TEMP 37.1; O2SAT 97
== END 2020-03-03 18:10 | disposition home or self-care (01) ==
PROVIDERS: Emergency Provider Nurse Practitioner Family; PCP Internal Medicine Adolescent Medicine
DX: N30.00 Acute cystitis without hematuria (principal); Z79.899 Other long term (current) drug therapy
CPT/HCPCS: G0463; 81003; 87086; 87088; 87186; 99201

== ENCOUNTER 2020-03-09 17:22 | Inpatient (IN) | payer MEDICARE, BC, SELFPAY ==
[2020-03-09 17:23] VITALS: BP 192/72; PULSE 72; RESP 17; TEMP 36.6; O2SAT 98; BMI 25.4
[2020-03-09 18:03] LABS: Microscopic, Urine URINE MICROSCOPIC (MICROSCOPIC)
[2020-03-09 18:04] LABS: Appearance,Urine CLEAR (Clear); Bilirubin,Urine Negative (Negative); Blood, Urine Negative (Negative); Color,Urine YELLOW (Yellow); Glucose,Urine (UA) Negative (Negative); Ketones,Urine Negative (Negative); Leukocyte Esterase,Urine 2+ (Negative); Nitrate,Urine POSITIVE (Negative); Protein,Urine Negative (Negative); Urobilinogen,Urine 0.2 EU/dl (0.2)
[2020-03-09 18:04] LABS: Basophils % 0.5 % (0.1-2.0); Eosinophils # 0.2 K/mm3 (0.0-0.4); Eosinophils % 2.9 % (0.1-12.0); Hematocrit 35.2 % (37.0-47.0); Lymphocytes # 2.2 K/mm3 (0.7-4.5); Lymphocytes % 35.6 % (10-50); Mean Corpuscular HGB Conc 31.3 g/dL (31.8-35.4); Mean Corpuscular Hemoglobin 26.6 pg (27.0-31.2); Mean Corpuscular Volume 84.8 fl (81-99); Mean Platelet Volume 7.3 fl (7.4-10.4); Monocytes # 0.4 K/mm3 (0.1-1.0); Monocytes % 5.9 % (1.7-9.3); Neutrophils # 3.4 K/mm3 (1.8-7.8); Neutrophils % 55.1 % (37.0-80.0); Platelet Count 276 K/mm3 (142-424); Red Blood Count 4.16 M/mm3 (4.20-5.40); Red Cell Distribution Width 14.8 % (11.5-17.5); White Blood Count 6.2 K/mm3 (4.8-10.8)
[2020-03-09 18:06] LABS: Chloride 90 mmol/L (98-107); Potassium 5.3 mmoL/L (3.5-5.1); Sodium 125 mmol/L (136-145)
[2020-03-09 18:08] LABS: Blood Urea Nitrogen 14 mg/dl (7-17); Creatinine Clearance Estimated 33 mL/min (50-200); Estimated Glomerular Filt Rate 34 ml/min (>60); GFR (African American) 41 ML/MIN (>60)
[2020-03-09 18:09] LABS: Alanine Aminotransferase 12 U/L (12-78); Albumin Level 4.8 g/dl (3.5-5.0); Albumin/Globulin Ratio 1.3 (1.1-1.8); Alkaline Phosphatase 79 U/L (38-126); Anion Gap 16.3 mEq/L (5-15); Aspartate Amino Transferase 28 U/L (14-36); Bilirubin,Total 0.3 mg/dl (0.2-1.3); Calcium 9.5 mg/dl (8.4-10.2); Carbon Dioxide 24 mmol/L (22.0-30.0); Globulin 3.7 g/dL (1.3-3.2); Glucose 101 mg/dl (74-100); Total Protein,Serum 8.5 g/dl (6.3-8.2)
[2020-03-09 18:10] LABS: Lactic Acid 1.1 mmol/L (0.7-2.1)
[2020-03-09 18:11] LABS: Bacteria,Urine 2+ /lpf; WBC,Urine 50-100 #/hpf (0-3)
--- NOTE | 2020-03-09 18:24 | HMH.EDGENADL ---
ED Disposition Clinical Impression: Infection due to ESBL-producing Escherichia coli, Pyelonephritis due to Escherichia coli Disposition: Admitted as Observation Condition on Discharge: Fair Referrals: Sravan Anderson MD [Primary Care Provider] - - Critical Care Critical Care Time: No Attestation: On 03/09/20, the high probability of a clinically significant, sudden or life threatening deterioration of the following system(s) required my full and direct attention, intervention and personal management. The time I documented below is in addition to time spent performing reported procedures but includes the following listed in this critical care notation. Medical Decision Making - Medical Records Medical records reviewed: Yes: I reviewed the patient's medical records. MR Comment: Reviewed urgent treatment center visit and culture results. The patient has E. coli, ESBL positive, resistant to Bactrim. - Moe Inquiry Pt receiving controlled substance: No Vital Signs: 03/09/20 17:23 Temperature 97.8 F Temperature Source Oral Pulse Rate [Left Radial] 72 Respiratory Rate 17 Blood Pressure [Right Arm] 192/72 H Blood Pressure Mean [Right Arm] 112 02 Sat by Pulse Oximetry 98 Oxygen Delivery Method Room Air - Lab Data Lab Results 03/09/20 17:48: WBC 6.2, RBC 4.16 L, Hgb 11.0 L, Hct 35.2 L, MCV 84.8, MCH 26.6 L, MCHC 31.3 L, RDW 14.8, Plt Count 276, MPV 7.3 L, Neut % (Auto) 55.1, Lymph % (Auto) 35.6, [place] % (Auto) 5.9, Eos % (Auto) 2.9, Baso % (Auto) 0.5, Neut # (Auto) 3.4, Lymph # (Auto) 2.2, [place] # (Auto) 0.4, Eos # (Auto) 0.2, Baso # (Auto) 0.0 03/09/20 17:48: Lactate 1.1 03/09/20 17:48: Sodium 125 L, Potassium 5.3 H, Chloride 90 L, Carbon Dioxide 24, Anion Gap 16.3 H, BUN 14, Creatinine 1.50 H, Estimated Creat Clear 33, Estimated GFR 34 L, Est GFR ( Amer) 41 L, Glucose 101 H, Calcium 9.5, Total Bilirubin 0.3, AST 28, ALT 12, Alkaline Phosphatase 79, Total Protein 8.5 H, Albumin 4.8, Globulin 3.7 H, Albumin/Globulin Ratio 1.3 03/09/20 17:48: SARS-CoV-2 IgG Ab (Rapid) Positive A, SARS-CoV-2 IgM Ab (Rapid) Negative 03/09/20 17:49: Urine Color Yellow, Urine Appearance Clear, Urine pH 6.0, Ur Specific [place] 1.010, Urine Protein Negative, Urine Glucose (UA) Negative, Urine Ketones Negative, Urine Blood Negative, Urine Nitrate Positive, Urine Bilirubin Negative, Urine Urobilinogen 0.2, Ur Leukocyte Esterase 2+ A, Urine RBC None, Urine WBC 50-100, Ur Squamous Epith Cells 5-10, Urine Bacteria 2+ Result diagrams: 03/09/20 17:48 03/09/20 17:48 Orders (Tests/Meds): ED MEDICATIONS Generic Name Dose Route Start Last Admin Trade Name Freq PRN Reason Stop Dose Admin Ertapenem 1 gm/ Sodium 50 mls @ 100 mls/hr 03/09/20 18:45 Chloride IV 03/23/20 18:44 Q24H JG Protocol Discontinued Medications Generic Name Dose Route Start Last Admin Trade Name Freq PRN Reason Stop Dose Admin Sodium Chloride 1,000 ml 03/09/20 18:38 Sodium Chloride 0.9% 1000ml Bag IV 03/09/20 18:39 BOLUS ONE ORDERS Category Date Time Status Blood Culture Stat Micro 03/09/20 17:49 Received Urine Culture Stat Micro 03/09/20 17:49 Received - Physician Consults Physician Consulted: Dr. Vieira Time: 18:47 Reason -: Admission Comment/Response: Agrees to admit the patient to the hospital. We discussed the patient's clinical information, including history, exam, laboratory and radiology results and ED course. Per hospital procedure, I will write temporary bridge inpatient orders on the patient. Specific orders requested by the admitting physician: Continue Invanz and fluids General Adult HPI - General Chief complaint: Urogenital-Female Stated complaint: Kidney problems,V&D,Nausa Time Seen by Provider: 03/09/20 18:24 Mode of Arrival: Ambulatory Limitations: No Limitations Description of Symptoms (Recalled from ER Triage Doc. by RN): c/o unable to urinate a lot with n/v/d, chills, lethargic and weakness
[2020-03-09 18:42] LABS: Coronavirus 19 IgG Antibody Positive (Negative); Coronavirus 19 IgM Antibody Negative (Negative)
--- NOTE | 2020-03-09 19:25 | PC.NURSE ---
received verbal report on patient.
[2020-03-09 19:52] VITALS: BP 188/97; PULSE 73; RESP 16; O2SAT 98
--- NOTE | 2020-03-09 20:12 | PC.NURSE ---
up to bathroom, ambulated with minimal assist of .
[2020-03-09 20:17] VITALS: BP 187/56; PULSE 78; RESP 16; TEMP 36.6; O2SAT 98
[2020-03-09 20:20] VITALS: BP 195/80; PULSE 76; RESP 14; TEMP 36.4; O2SAT 95; BMI 27.4
--- NOTE | 2020-03-09 20:20 | PC.NURSE ---
patient up to floor via wheelchair.
--- NOTE | 2020-03-09 23:58 | PC.NURSE ---
will bring home medications in tomorrow
[2020-03-10] VITALS: BP 131/50; PULSE 78; RESP 14; TEMP 36.6; O2SAT 95
--- NOTE | 2020-03-10 03:26 | PC.NURSE ---
No acute changes. Pt has rested well since arrival to floor. Pt has ambulated with assist x1 this shift. Urine has been cloudy. MD Vieira consulted for medications. NS @ 75 ml/hr, Seroquel 100 mg HS , Librax QID and famotidine 20 mg BID ordered. Pharmacy also consulted for medication, Librax. VSS at this time. Call light within reach. Will continue to monitor.
[2020-03-10 04:00] VITALS: BP 151/62; PULSE 80; RESP 14; TEMP 36.6; O2SAT 96
[2020-03-10 05:32] VITALS: BMI 27.2
--- NOTE | 2020-03-10 06:25 | HMH.HP ---
*Admission Date: 03/09/20 *Chief complaint: nausea, fever, dysuria *History of present illness: 74 yo F with Hx of DM, HTN, COPD, Anxiety, Memory impairment, HLD, and previous UTIs. She presented to the ER yesterday as she has been symptomatic for 1 week with symptoms of urinary tract infection. Initially went to the urgent treatment center at [facility] where UA obtained and she was diagnosed with a UTI and started on Bactrim. UC from 03/03 grew E. coli with ESBL resistance. She did not improve with PO treatment leading to presentation to the ER last night. She reports dysuria, nausea, chills, subjective fevers, and feeling lethargic. These Sx progressed over the past 3-4 days since initiating PO abx. Reports trying to stay hydrated and drinking lots of water, has only urinated once today and none overnight prior to presentation. C/o pain in both flanks and across her lower abdomen. She has a prior history of urinary tract infection requiring a 7-day admission several years ago. She says she feels like she is heading down that path. Admitted to Medicine for failure of outpatient therapy for ESBL pyelonephritis. on assessment this morning, she states she feels somewhat better. Was afebrile overnight. Denies kavon emesis. Still complains of flank pain, right worse than left. Abdomen somewhat tender. [facility] History I have reviewed the patient's past medical history: Yes Medical History: Reports:: Anxiety, Arrhythmia, Atrial Fibrillation, Depression, Diabetes Mellitus Type 2, Gastroesophageal Reflux Disease(GERD), Hyperlipidemia, Hypertension Denies:: Cancer, Diabetes Mellitus Type 1, Internal Pacemaker, Lung Disease, MRSA, Seizures *Have you ever received a pneumonia vaccine?: Yes *Have you received a flu vaccine this season?: No Laterality Cases: Bilateral: Arthroscopy Knee, Arthroscopy Shoulder Other Surgeries: Yes: Appendectomy, Cholecystectomy, Hysterectomy-Total, Other (Back sx X4). No: Pacemaker Amputation: No Fractures: No - *Social History Last grade of school completed: High school graduate Smoking Status: Never smoker Alcohol Intake: never *Occupational Status:: retired Housing: house Household Members: spouse, children *Travel in the last 8 weeks: None - Psychiatric History Pschychiatric History:: Reports:: Anxiety, Depression Family Hx:: Unable to obtain Review of Systems - Review of Systems Review of systems:: pertinent systems reviewed and negative unless documented below (14 point review of systems performed, pertinent positives and negatives as per HPI) Meds Home Medications Medication Instructions Recorded Confirmed Type Donepezil HCl [Donepezil ODT 5mg] 5 mg PO DAILY 06/26/18 03/10/20 History Escitalopram Oxalate 10 mg PO DAILY 06/26/18 03/10/20 History Levothyroxine Sodium 100 mg PO DAILY 06/26/18 03/10/20 History [Levothyroxine 100mcg (0.1MG) Tab] Losartan Potassium 100 mg PO DAILY 06/26/18 03/10/20 History Memantine HCl [Memantine 10mg 10 mg PO BID 06/26/18 03/10/20 History Tablet] Pravastatin Sodium 80 mg PO HS 06/26/18 03/10/20 History Quetiapine Fumarate 100 mg PO HS 06/26/18 03/10/20 History Sitagliptin Phos/Metformin HCl 1 tab PO BID 06/26/18 03/10/20 History [Janumet 50-1,000 mg Tablet] Chlordiazepoxide/Clidinium Br 1 each PO ACHS 10/14/18 03/10/20 History [Librax Capsule] Melatonin 10 mg PO HS 10/14/18 03/10/20 History Cyanocobalamin (Vitamin B-12) 1,000 mcg IM WEEKLY 03/10/20 03/10/20 History [Cyanocobalamin 1,000mcg/mL Vial] Famotidine [Pepcid 20mg Tablet] 20 mg PO BID 03/10/20 03/10/20 History Hydralazine HCl [Hydralazine HCl 50 mg PO TID 03/10/20 03/10/20 History 25mg Tablet] Loperamide HCl [Imodium 2 mg 2 mg PO Q2HP PRN 03/10/20 03/10/20 History capsule] Phenazopyridine HCl [Pyridium] 200 mg PO TID 03/10/20 03/10/20 History Semaglutide [Ozempic] 5 mg SQ WEEKLY 03/10/20 03/10/20 History Simethicone [Gas Relief] 80 mg PO DAILYP PRN 03/10/20 03/10/20 History Sodium Chlor
--- NOTE | 2020-03-10 07:17 | P.CONPHA_ITS ---
[facility] Pharmacy VTE Monitoring - Patient Demographics Admission date: 03/09/20 Report Date: 03/10/20 Time: 07:17 Allergies/Adverse Reactions: Patient Allergies aspirin [ASPIRIN] Allergy (Unknown, Verified 08/29/18 18:25) hydroxyzine [HYDROXYZINE] Allergy (Unknown, Verified 08/29/18 18:25) meperidine [From DEMEROL] Allergy (Unknown, Verified 08/29/18 18:25) rosuvastatin [From CRESTOR] Allergy (Unknown, Verified 08/29/18 18:25) Height: 1.55 m Weight: 65.402 kg Patient Problems: Current Active Problems Infection due to ESBL-producing Escherichia coli (Acute) Pyelonephritis due to Escherichia coli (Acute) - VTE Risk Labs: VTE Related Lab Results Hgb 11.0 g/dL (12.2-16.2) L 03/09/20 17:48 Hct 35.2 % (37.0-47.0) L 03/09/20 17:48 Plt Count 276 K/mm3 (142-424) 03/09/20 17:48 BUN 14 mg/dl (7-17) 03/09/20 17:48 Creatinine 1.50 mg/dl (0.52-1.04) H 03/09/20 17:48 Estimated Creat Clear 33 mL/min (50-200) 03/09/20 17:48 Was VTE Risk Assessment Performed: Yes VTE Score: 4 VTE Risk Level: Low Risk - Prophylaxis VTE Prophylaxis Ordered?: Yes Types of VTE Prophylaxis: TEDS Knee High Location of Applied Device: Bilateral Lower Extremeties
[2020-03-10 08:00] VITALS: BP 161/70; PULSE 86; RESP 18; TEMP 36.5; O2SAT 95
--- NOTE | 2020-03-10 09:48 | HMH.PHAINT ---
Medication reconciliation using pharmacy claims data and patient list/interview.
[2020-03-10 09:58] VITALS: BMI 27.0
--- NOTE | 2020-03-10 11:24 | XR_ITS ---
PROCEDURE: XR CHEST PORTABLE PICC PLAC CLINICAL HISTORY: PICC line placement COMPARISON: CR CXR CHEST(2 VIEWS-NOT PORTABLE) from 09/07/2016 FINDINGS: The cardiomediastinal silhouette and pulmonary vascularity are within normal limits. The lungs are clear without infiltrates, suspicious nodules, or pleural effusions. There are calcified hilar and subcarinal nodes. The PICC line is visualized projecting over the upper humerus likely at the proximal aspect of the axillary vein. There is no pneumothorax. There are surgical anchors likely from previous rotator cuff surgery left shoulder. No acute bony abnormalities. IMPRESSION: PICC line position within the upper left arm Dictated by: Dr. Bryce Lau MD 03/10/2020 11:54 Dr. Bryce Lau MD in [place] 03/10/2020 11:54
--- NOTE | 2020-03-10 12:10 | PC.NURSE ---
ATTEMPTED PICC X3 STICKS; ATTEMPTED ON BOTH RIGHT AND LEFT ARM; WAS ABLE TO ACCESS VEIN BUT GUIDE WIRE WOULD NOT ADVANCE AT ALL IN ANY ATTEMPTS; CALLED AND LEFT MESSAGE WITH
[2020-03-10 16:00] VITALS: BP 162/70; PULSE 76; RESP 18; TEMP 36.8; O2SAT 95
--- NOTE | 2020-03-10 18:06 | PC.NURSE ---
Pt has been pleasant and cooperative this shift. A&O X4. No complaints of pain. Lungs CTA. Pt is on room air with sats. >90%. Pt ambulates a with stand-by assistance to/from the bathroom and voids dark, yellow, cloudy urine without issue. No BM this shift. Skin is C/D/I with no edema noted. Appetite is great and pt eats majority of all meals. PICC line was attempted today and ultimately unsuccessful. Pt remains in contact precautions due to ESBL + urine. 20 G peripheral IV in the RT AC is patent and infusing NS @ 75 ML/HR. VSS. Call light within reach. Will continue to monitor.
[2020-03-10 20:00] VITALS: BP 165/76; PULSE 91; RESP 17; TEMP 37.1; O2SAT 96
[2020-03-11 04:00] VITALS: BP 179/75; PULSE 89; RESP 17; TEMP 36.4; O2SAT 96
[2020-03-11 04:58] VITALS: BMI 27.2
--- NOTE | 2020-03-11 05:48 | PC.NURSE ---
Pt is A&Ox4 and has been assisted with ambulation with staff x1 assist and tolerated well. Pt continues on room air and lungs CTA. Pt denies any pain. Pt denies any N/V/D. Pt denies any dysuria and drk ylw urine is noted this shift. Skin C/D/I. TEDS refused. VSS and call light within reach.
[2020-03-11 08:00] VITALS: BP 178/80; PULSE 82; RESP 17; TEMP 36.6; O2SAT 97
[2020-03-11 09:05] LABS: Basophils % 0.3 % (0.1-2.0); Eosinophils # 0.1 K/mm3 (0.0-0.4); Eosinophils % 2.1 % (0.1-12.0); Hematocrit 32.4 % (37.0-47.0); Hemoglobin 10.4 g/dL (12.2-16.2); Lymphocytes # 1.3 K/mm3 (0.7-4.5); Lymphocytes % 23.5 % (10-50); Mean Corpuscular HGB Conc 32.1 g/dL (31.8-35.4); Mean Corpuscular Hemoglobin 26.8 pg (27.0-31.2); Mean Corpuscular Volume 83.5 fl (81-99); Mean Platelet Volume 7.5 fl (7.4-10.4); Monocytes # 0.3 K/mm3 (0.1-1.0); Monocytes % 5.6 % (1.7-9.3); Neutrophils # 3.7 K/mm3 (1.8-7.8); Neutrophils % 68.5 % (37.0-80.0); Platelet Count 228 K/mm3 (142-424); Red Blood Count 3.88 M/mm3 (4.20-5.40); Red Cell Distribution Width 14.8 % (11.5-17.5); White Blood Count 5.3 K/mm3 (4.8-10.8)
[2020-03-11 09:13] LABS: Chloride 104 mmol/L (98-107); Potassium 4.6 mmoL/L (3.5-5.1); Sodium 137 mmol/L (136-145)
[2020-03-11 09:15] LABS: Blood Urea Nitrogen 13 mg/dl (7-17); Creatinine Clearance Estimated 44 mL/min (50-200); Estimated Glomerular Filt Rate 44 ml/min (>60); GFR (African American) 53 ML/MIN (>60)
[2020-03-11 09:16] LABS: Alanine Aminotransferase 12 U/L (12-78); Albumin Level 4.1 g/dl (3.5-5.0); Albumin/Globulin Ratio 1.2 (1.1-1.8); Alkaline Phosphatase 82 U/L (38-126); Anion Gap 12.6 mEq/L (5-15); Aspartate Amino Transferase 25 U/L (14-36); Bilirubin,Total 0.4 mg/dl (0.2-1.3); Calcium 9.5 mg/dl (8.4-10.2); Carbon Dioxide 25 mmol/L (22.0-30.0); Globulin 3.3 g/dL (1.3-3.2); Glucose 143 mg/dl (74-100); Magnesium 1.4 mg/dl (1.6-2.3); Total Protein,Serum 7.4 g/dl (6.3-8.2)
--- NOTE | 2020-03-11 10:03 | HMH.DCSUM ---
General - General Admission date:: 03/09/20 Discharge date: 03/11/20 HPI HPI: 74 yo F with Hx of DM, HTN, COPD, Anxiety, Memory impairment, HLD, and previous UTIs. She presented to the ER yesterday as she has been symptomatic for 1 week with symptoms of urinary tract infection. Initially went to the urgent treatment center at [facility] where UA obtained and she was diagnosed with a UTI and started on Bactrim. UC from 03/03 grew E. coli with ESBL resistance. She did not improve with PO treatment leading to presentation to the ER last night. She reports dysuria, nausea, chills, subjective fevers, and feeling lethargic. These Sx progressed over the past 3-4 days since initiating PO abx. Reports trying to stay hydrated and drinking lots of water, has only urinated once today and none overnight prior to presentation. C/o pain in both flanks and across her lower abdomen. She has a prior history of urinary tract infection requiring a 7-day admission several years ago. She says she feels like she is heading down that path. Admitted to Medicine for failure of outpatient therapy for ESBL pyelonephritis. on assessment this morning, she states she feels somewhat better. Was afebrile overnight. Denies kavon emesis. Still complains of flank pain, right worse than left. Abdomen somewhat tender. Hospital Course Hospital Course: Patient was admitted, placed on Invanz. Tolerated this well and quickly felt much better, continued to have some pressure with urinating but no vomiting, no nausea, was able to keep food and fluids down and had no further myalgias. Blood cultures were obtained, negative at the time of discharge. We will follow these closely. Urine culture is growing negative rods, expected given her failed outpatient therapy. We will tract this obviously as an outpatient. Given her significant pyelonephritis, drug resistance pattern and failed outpatient therapy we will begin outpatient Invanz after today's dose, from 03/12/2020 through 03/22/2020. She will come back to her outpatient services department daily. Other medications remain the same. I will see her in my office on 1123 with labs that morning. Objective Vital signs: Temp Pulse Resp BP Pulse Ox 97.9 F 82 17 178/80 H 97 03/11/20 08:00 03/11/20 08:00 03/11/20 08:00 03/11/20 08:00 03/11/20 08:00 no acute distress - *Routine HEENT Exam Head: Present: normocephalic Eye: Present: EOMI, PERRL ENT: Present: mucous membranes moist - *Routine Neck Exam Present: supple - *Routine Respiratory Exam Present: CTA bilaterally - *Routine Cardiovascular Exam Present: RRR - *Routine Abdominal Exam Present: soft, normoactive bowel sounds. Absent: tenderness - *Routine Extremities Exam Absent: cyanosis, clubbing, edema - *Routine Skin Exam Present: warm. Absent: rash - Detailed Eye Exam Eyelids: Bilateral normal inspection Results Labs on day of discharge: Labs from last 24 hours 03/11/20 03/11/20 03/09/20 08:53 08:53 17:49 WBC 5.3 RBC 3.88 L Hgb 10.4 L Hct 32.4 L MCV 83.5 MCH 26.8 L MCHC 32.1 RDW 14.8 Plt Count 228 MPV 7.5 Neut % (Auto) 68.5 Lymph % (Auto) 23.5 [place] % (Auto) 5.6 Eos % (Auto) 2.1 Baso % (Auto) 0.3 Neut # (Auto) 3.7 Lymph # (Auto) 1.3 [place] # (Auto) 0.3 Eos # (Auto) 0.1 Baso # (Auto) 0.0 Sodium 137 Potassium 4.6 Chloride 104 Carbon Dioxide 25 Anion Gap 12.6 BUN 13 Creatinine 1.20 H Estimated Creat Clear 44 Estimated GFR 44 L Est GFR ( Amer) 53 L D Glucose 143 H Calcium 9.5 Magnesium 1.4 L Total Bilirubin 0.4 AST 25 ALT 12 Alkaline Phosphatase 82 Total Protein 7.4 Albumin 4.1 Globulin 3.3 H Albumin/Globulin Ratio 1.2 Urine Color Yellow Urine Appearance Clear Urine pH 6.0 Ur Specific [place] 1.010 Urine Protein Negative Urine Glucose (UA) Neg
== END 2020-03-11 14:32 | disposition home or self-care (01) | DRG 690 ==
LOC: ER 18:48 → 2ND 19:08
PROVIDERS: Internal Medicine Adolescent Medicine; Admitting Provider Family Medicine; Emergency Provider Emergency Medicine; PCP Internal Medicine Adolescent Medicine; Visit Provider Internal Medicine Adolescent Medicine
DX: N12 Tubulo-interstitial nephritis, not specified as acute or chronic (principal); Z16.12 Extended spectrum beta lactamase (ESBL) resistance; I13.0 Hypertensive heart and chronic kidney disease with heart failure and stage 1 through stage 4 chronic kidney disease, or unspecified chronic kidney disease; E03.9 Hypothyroidism, unspecified; N17.9 Acute kidney failure, unspecified; N18.30 Chronic kidney disease, stage 3 unspecified; E11.22 Type 2 diabetes mellitus with diabetic chronic kidney disease; I48.91 Unspecified atrial fibrillation; J44.9 Chronic obstructive pulmonary disease, unspecified; E78.5 Hyperlipidemia, unspecified; Z79.84 Long term (current) use of oral hypoglycemic drugs; Z79.899 Other long term (current) drug therapy; Z88.8 Allergy status to other drugs, medicaments and biological substances; B96.20 Unspecified Escherichia coli [E. coli] as the cause of diseases classified elsewhere
CPT/HCPCS: 71045; 80053; 81001; 83605; 83735; 85025; 86328; 87040; 87086; 87088; 87186; 96365; 96367; 99284; C1751; J1335

== ENCOUNTER → 2020-03-12 14:08 | Outpatient (CLI) | payer MEDICARE, BC, SELFPAY ==
[2020-03-12 14:53] VITALS: BP 141/47; PULSE 78; RESP 16; TEMP 36.7
--- NOTE | 2020-03-12 14:53 | PC.NURSE ---
#22 left AC PIV started. Will leave PIV in for daily Invanz injections.
[2020-03-12 15:00] VITALS: BP 141/47; PULSE 78; RESP 16; TEMP 36.7
== END ==
PROVIDERS: PCP Internal Medicine Adolescent Medicine; Visit Provider Internal Medicine Adolescent Medicine
DX: N10 Acute pyelonephritis (principal); Z16.12 Extended spectrum beta lactamase (ESBL) resistance; B96.20 Unspecified Escherichia coli [E. coli] as the cause of diseases classified elsewhere
CPT/HCPCS: 96365; G0463; J1335

== ENCOUNTER 2020-03-13 11:11 | Outpatient (CLI) | payer MEDICARE, BC, SELFPAY ==
[2020-03-13 11:55] VITALS: BP 154/65; PULSE 76; RESP 18; TEMP 36.4; O2SAT 97
[2020-03-13 11:57] LABS: Basophils % 0.5 % (0.1-2.0); Eosinophils # 0.1 K/mm3 (0.0-0.4); Eosinophils % 2.2 % (0.1-12.0); Hematocrit 33.8 % (37.0-47.0); Hemoglobin 10.7 g/dL (12.2-16.2); Lymphocytes # 1.4 K/mm3 (0.7-4.5); Lymphocytes % 26.2 % (10-50); Mean Corpuscular HGB Conc 31.7 g/dL (31.8-35.4); Mean Corpuscular Hemoglobin 26.6 pg (27.0-31.2); Mean Platelet Volume 7.5 fl (7.4-10.4); Monocytes # 0.2 K/mm3 (0.1-1.0); Monocytes % 4.2 % (1.7-9.3); Neutrophils # 3.6 K/mm3 (1.8-7.8); Neutrophils % 66.9 % (37.0-80.0); Platelet Count 257 K/mm3 (142-424); Red Blood Count 4.03 M/mm3 (4.20-5.40); Red Cell Distribution Width 14.7 % (11.5-17.5); White Blood Count 5.4 K/mm3 (4.8-10.8)
[2020-03-13 12:45] VITALS: BP 148/66; PULSE 66; RESP 18
[2020-03-13 12:58] LABS: Chloride 99 mmol/L (98-107); Potassium 4.5 mmoL/L (3.5-5.1); Sodium 133 mmol/L (136-145)
[2020-03-13 13:01] LABS: Anion Gap 13.5 mEq/L (5-15); Blood Urea Nitrogen 13 mg/dl (7-17); Calcium 9.6 mg/dl (8.4-10.2); Carbon Dioxide 25 mmol/L (22.0-30.0); Estimated Glomerular Filt Rate 49 ml/min (>60); GFR (African American) 59 ML/MIN (>60); Glucose 117 mg/dl (74-100)
== END 2020-03-13 12:45 | disposition home or self-care (01) ==
PROVIDERS: PCP Internal Medicine Adolescent Medicine; Visit Provider Internal Medicine Adolescent Medicine
DX: N10 Acute pyelonephritis (principal); B96.20 Unspecified Escherichia coli [E. coli] as the cause of diseases classified elsewhere; Z16.12 Extended spectrum beta lactamase (ESBL) resistance
CPT/HCPCS: 36415; 80048; 85025; 96365; J1335

== ENCOUNTER 2020-03-14 10:30 | Outpatient (CLI) | payer MEDICARE, BC, SELFPAY ==
[2020-03-14 11:03] VITALS: BP 135/55; PULSE 74; RESP 18; TEMP 36.8; O2SAT 97
[2020-03-14 11:33] VITALS: BP 140/66; PULSE 78; RESP 18; O2SAT 97
[2020-03-14 11:55] VITALS: BP 144/75; PULSE 77; RESP 18; O2SAT 98
== END 2020-03-14 12:00 | disposition home or self-care (01) ==
LOC: INF 10:37
PROVIDERS: Visit Provider Internal Medicine Adolescent Medicine
DX: N10 Acute pyelonephritis (principal); B96.20 Unspecified Escherichia coli [E. coli] as the cause of diseases classified elsewhere; Z16.12 Extended spectrum beta lactamase (ESBL) resistance
CPT/HCPCS: 96365; J1335

== ENCOUNTER 2020-03-15 10:32 | Outpatient (CLI) | payer MEDICARE, BC, SELFPAY ==
[2020-03-15 10:35] VITALS: BP 141/56; PULSE 68; RESP 18; TEMP 36.5; O2SAT 97
[2020-03-15 11:26] VITALS: BP 135/51; PULSE 70; RESP 18
== END 2020-03-15 11:26 | disposition home or self-care (01) ==
LOC: INF 10:32
PROVIDERS: Visit Provider Internal Medicine Adolescent Medicine
DX: N10 Acute pyelonephritis (principal); B96.20 Unspecified Escherichia coli [E. coli] as the cause of diseases classified elsewhere; Z16.12 Extended spectrum beta lactamase (ESBL) resistance
CPT/HCPCS: 96365; J1335

== ENCOUNTER → 2020-03-16 13:17 | Outpatient (CLI) | payer MEDICARE, BC, SELFPAY ==
[2020-03-16 13:30] VITALS: BP 148/60; PULSE 81; RESP 17; O2SAT 97
== END ==
PROVIDERS: PCP Internal Medicine Adolescent Medicine; Visit Provider Internal Medicine Adolescent Medicine
DX: N10 Acute pyelonephritis (principal); B96.20 Unspecified Escherichia coli [E. coli] as the cause of diseases classified elsewhere; Z16.12 Extended spectrum beta lactamase (ESBL) resistance
CPT/HCPCS: 96365; J1335

== ENCOUNTER 2020-03-17 10:31 | Outpatient (CLI) | payer MEDICARE, BC, SELFPAY ==
[2020-03-17 10:50] VITALS: BP 143/57; PULSE 82; RESP 18; TEMP 36.6; O2SAT 97
[2020-03-17 11:35] VITALS: BP 139/63; PULSE 76; RESP 18; O2SAT 98
== END 2020-03-17 11:46 | disposition home or self-care (01) ==
LOC: INF 10:31
PROVIDERS: Visit Provider Internal Medicine Adolescent Medicine
DX: N10 Acute pyelonephritis (principal); B96.20 Unspecified Escherichia coli [E. coli] as the cause of diseases classified elsewhere; Z16.12 Extended spectrum beta lactamase (ESBL) resistance
CPT/HCPCS: 96365; J1335

== ENCOUNTER → 2020-03-18 13:21 | Outpatient (CLI) | payer MEDICARE, BC, SELFPAY ==
[2020-03-18 13:40] VITALS: BP 142/55; PULSE 75; RESP 19; TEMP 37.1; O2SAT 98
== END ==
PROVIDERS: PCP Internal Medicine Adolescent Medicine; Visit Provider Internal Medicine Adolescent Medicine
DX: N10 Acute pyelonephritis (principal); B96.20 Unspecified Escherichia coli [E. coli] as the cause of diseases classified elsewhere; Z16.12 Extended spectrum beta lactamase (ESBL) resistance
CPT/HCPCS: 96365; J1335

== ENCOUNTER → 2020-03-19 13:19 | Outpatient (CLI) | payer MEDICARE, BC, SELFPAY ==
[2020-03-19 13:53] VITALS: BP 154/60; PULSE 76; RESP 17; TEMP 36.6; O2SAT 98
== END ==
PROVIDERS: PCP Internal Medicine Adolescent Medicine; Visit Provider Internal Medicine Adolescent Medicine
DX: N10 Acute pyelonephritis (principal); B96.20 Unspecified Escherichia coli [E. coli] as the cause of diseases classified elsewhere; Z16.12 Extended spectrum beta lactamase (ESBL) resistance
CPT/HCPCS: 96365; G0463; J1335

== ENCOUNTER 2020-03-20 10:37 | Outpatient (CLI) | payer MEDICARE, BC, SELFPAY ==
[2020-03-20 10:40] VITALS: BMI 25.4
[2020-03-20 10:52] VITALS: BP 130/48; PULSE 85; RESP 18; TEMP 36.6; O2SAT 96
[2020-03-20 11:18] LABS: Basophils % 0.8 % (0.1-2.0); Eosinophils # 0.1 K/mm3 (0.0-0.4); Eosinophils % 2.3 % (0.1-12.0); Hematocrit 33.6 % (37.0-47.0); Hemoglobin 10.7 g/dL (12.2-16.2); Lymphocytes # 1.3 K/mm3 (0.7-4.5); Lymphocytes % 25.5 % (10-50); Mean Corpuscular HGB Conc 31.7 g/dL (31.8-35.4); Mean Platelet Volume 7.6 fl (7.4-10.4); Monocytes # 0.3 K/mm3 (0.1-1.0); Monocytes % 5.9 % (1.7-9.3); Neutrophils # 3.3 K/mm3 (1.8-7.8); Neutrophils % 65.4 % (37.0-80.0); Platelet Count 240 K/mm3 (142-424); Red Blood Count 3.96 M/mm3 (4.20-5.40)
[2020-03-20 11:22] LABS: Chloride 102 mmol/L (98-107); Potassium 4.6 mmoL/L (3.5-5.1); Sodium 139 mmol/L (136-145)
[2020-03-20 11:25] VITALS: BP 144/51; PULSE 75; RESP 18; O2SAT 97
[2020-03-20 11:25] LABS: Alanine Aminotransferase 19 U/L (12-78); Albumin Level 4.4 g/dl (3.5-5.0); Albumin/Globulin Ratio 1.3 (1.1-1.8); Alkaline Phosphatase 82 U/L (38-126); Anion Gap 14.6 mEq/L (5-15); Aspartate Amino Transferase 30 U/L (14-36); Bilirubin,Total 0.4 mg/dl (0.2-1.3); Blood Urea Nitrogen 14 mg/dl (7-17); Calcium 9.7 mg/dl (8.4-10.2); Carbon Dioxide 27 mmol/L (22.0-30.0); Chol/HDL Ratio 3.4 (1-3.5); Cholesterol 178 mg/dl (140-200); Creatinine Clearance Estimated 45 mL/min (50-200); Estimated Glomerular Filt Rate 49 ml/min (>60); GFR (African American) 59 ML/MIN (>60); Globulin 3.3 g/dL (1.3-3.2); Glucose 135 mg/dl (74-100); HDL Cholesterol 52 mg/dl (40-60); Total Protein,Serum 7.7 g/dl (6.3-8.2); Triglycerides 206 mg/dl (30-150); VLDL Cholesterol 41 mg/dL (0-40)
[2020-03-20 11:36] LABS: Direct LDL Cholesterol 89.49 mg/dL (100-129)
[2020-03-20 11:46] VITALS: BP 138/54; PULSE 78; RESP 18; O2SAT 97
[2020-03-20 11:58] LABS: Thyroid Stimulating Hormone 0.04 uIU/mL (0.465-4.68)
[2020-03-20 12:01] LABS: Hemoglobin A1C 5.4 % (4.0-6.0)
== END 2020-03-20 11:46 | disposition home or self-care (01) ==
LOC: INF 10:37
PROVIDERS: Visit Provider Internal Medicine Adolescent Medicine
DX: N10 Acute pyelonephritis (principal); B96.20 Unspecified Escherichia coli [E. coli] as the cause of diseases classified elsewhere; Z16.12 Extended spectrum beta lactamase (ESBL) resistance; Z79.899 Other long term (current) drug therapy
CPT/HCPCS: 36415; 80053; 80061; 83036; 84443; 85025; 96365; J1335

== ENCOUNTER 2020-03-21 10:36 | Outpatient (CLI) | payer MEDICARE, BC, SELFPAY ==
[2020-03-21 10:46] VITALS: BP 150/62; PULSE 82; RESP 18; TEMP 36.2; O2SAT 98
[2020-03-21 11:16] VITALS: BP 141/68; PULSE 75; RESP 18; O2SAT 97
[2020-03-21 11:40] VITALS: BP 136/56; PULSE 73; RESP 18; O2SAT 97
== END 2020-03-21 11:40 | disposition home or self-care (01) ==
LOC: INF 10:36
PROVIDERS: Visit Provider Internal Medicine Adolescent Medicine
DX: N10 Acute pyelonephritis (principal); B96.20 Unspecified Escherichia coli [E. coli] as the cause of diseases classified elsewhere; Z16.12 Extended spectrum beta lactamase (ESBL) resistance
CPT/HCPCS: 96365; J1335

== ENCOUNTER → 2020-05-10 15:38 | Outpatient (CLI) | payer MEDICARE, BC, SELFPAY ==
[2020-05-10 16:28] LABS: Basophils % 0.4 % (0.1-2.0); Eosinophils # 0.1 K/mm3 (0.0-0.4); Eosinophils % 2.1 % (0.1-12.0); Hematocrit 36.2 % (37.0-47.0); Hemoglobin 11.2 g/dL (12.2-16.2); Lymphocytes # 2.3 K/mm3 (0.7-4.5); Lymphocytes % 36.5 % (10-50); Mean Corpuscular Hemoglobin 25.9 pg (27.0-31.2); Mean Corpuscular Volume 83.6 fl (81-99); Mean Platelet Volume 7.4 fl (7.4-10.4); Monocytes # 0.4 K/mm3 (0.1-1.0); Monocytes % 6.7 % (1.7-9.3); Neutrophils # 3.5 K/mm3 (1.8-7.8); Neutrophils % 54.3 % (37.0-80.0); Platelet Count 290 K/mm3 (142-424); Red Blood Count 4.33 M/mm3 (4.20-5.40); Red Cell Distribution Width 14.9 % (11.5-17.5); White Blood Count 6.4 K/mm3 (4.8-10.8)
[2020-05-10 16:52] LABS: Alanine Aminotransferase 13 U/L (12-78); Albumin/Globulin Ratio 1.4 (1.1-1.8); Alkaline Phosphatase 80 U/L (38-126); Anion Gap 16.1 mEq/L (5-15); Aspartate Amino Transferase 25 U/L (14-36); Bilirubin,Total 0.4 mg/dl (0.2-1.3); Blood Urea Nitrogen 16 mg/dl (7-17); Calcium 10.3 mg/dl (8.4-10.2); Carbon Dioxide 25 mmol/L (22.0-30.0); Chloride 101 mmol/L (98-107); Estimated Glomerular Filt Rate 55 ml/min (>60); GFR (African American) 66 ML/MIN (>60); Globulin 3.6 g/dL (1.3-3.2); Glucose 101 mg/dl (74-100); Potassium 5.1 mmoL/L (3.5-5.1); Sodium 137 mmol/L (136-145); Total Protein,Serum 8.6 g/dl (6.3-8.2)
[2020-05-10 16:55] LABS: Hemoglobin A1C 5.4 % (4.0-6.0)
[2020-05-10 17:23] LABS: Thyroid Stimulating Hormone 0.02 uIU/mL (0.465-4.68)
== END ==
PROVIDERS: Visit Provider Internal Medicine Adolescent Medicine
DX: E11.9 Type 2 diabetes mellitus without complications (principal); E78.5 Hyperlipidemia, unspecified; E03.9 Hypothyroidism, unspecified
CPT/HCPCS: 36415; 80053; 83036; 84443; 85025

== ENCOUNTER 2021-01-07 19:48 | Emergency (ER) | payer MEDICARE, BC, SELFPAY ==
[2021-01-07 20:31] VITALS: BP 146/75; PULSE 87; RESP 22; TEMP 36.7; O2SAT 96; BMI 30.2
--- NOTE | 2021-01-07 21:03 | HMH.EDUTC ---
[facility] [place] Disposition Clinical Impression: Viral syndrome, Encounter for laboratory testing for COVID-19 virus Disposition: Home, Self-Care Condition on Discharge: Good Instructions: DI for COVID-19 (Suspected or Confirmed ), Preventing the Spread of Coronavirus Discharge Instructions, Diarrhea Additional Instructions: *Monitor Temp, Over the counter Motrin or Tylenol as directed/as needed Tylenol every 4 hours and Motrin every 6 hours (as long as your family doctor has told you that you can take it) for fever or pain. and straight to ER if unable to lower temp less than 101.0 after medication given *Warm salt water gargles may help to soothe the throat *Throat Lozenges *Warm fluids like tea with honey may help to soothe the throat *Sleep elevated *Humidifier/Vaporizer Follow up IMMEDIATELY for new or worsening symptoms or no Noticeable improvement over the next 48-72 hours. 911 for difficulty breathing or swallowing You were tested for today for COVID19 your test result should be back in the next 24-48 hours, You was given handout for instructions to log onto the [facility] to view your result if you are unable to log on you may call You was given a handout with instructions for Self Quarantine and Self isolation for while you wait on test results and what to do if they are positive If you are positive the Health Dept will be contacting you also Make sure to take your Vitamins Vit. C Vit D and Zinc if you can take them Referrals: Sravan Anderson MD [Primary Care Provider] - As needed Time of Disposition: 21:13 Medical Decision Making - Moe Inquiry Pt receiving controlled substance: No Moe was queried for this patient: No Vital Signs: 01/07/21 20:31 Temperature 98.1 F Temperature Source Oral Pulse Rate [Right Brachial] 87 Respiratory Rate 22 Blood Pressure [Right Arm] 146/75 H Blood Pressure Mean [Right Arm] 98 Blood Pressure Source [Right Arm] Automatic Cuff Blood Pressure Position [Right Arm] Sitting 02 Sat by Pulse Oximetry 96 Oxygen Delivery Method Room Air Orders (Tests/Meds): ORDERS Category Date Time Status Covid-19 Nasal PCR ([facility]) Routine Lab 01/07/21 20:04 Received [facility] [place] HPI - General Stated complaint: covid test sore throatcough,SOA,diarrhea,runny nos Time Seen by Provider: 01/07/21 21:03 Mode of Arrival: Ambulatory Source of Information: Patient Description of Symptoms (Recalled from Triage Doc. by RN): shaking, cough, diarrhea, no taste or smell HEENT Symptoms (Recalled from RN notes): Yes Resp Symptoms (Recalled from RN notes): Yes Skin Symptoms (Recalled from RN notes): No MS Symptoms (Recalled from RN notes): No Functional Status (Recalled from RN notes): yes - History of Present Illness Provider Complaint: Patient states that she went to [facility] last week and worried she may have caught COVID States that on Friday she had a little vomiting and started having diarrhea States that she started feeling achy and had a headache States that she started with chills and felt like her bones was cold and she couldnt get warm States that she has continued to have body aches and chills all weekend States that this morning she noticed she couldnt smell her coffee but she could taste it and this evening she couldnt smell or taste anything States that she has an appointment with Dr Anderson tomorrow but she was worried that she may have COVID and did want to expose the clinic staff so she came in to the [facility] to get tested for COVID - Related Data Home Medications Medication Instructions Recorded Confirmed Donepezil HCl [Donepezil ODT 5mg] 5 mg PO DAILY 06/26/18 03/21/20 Escitalopram Oxalate 10 mg PO DAILY 06/26/18 03/21/20 Levothyroxine Sodium 100 mg PO DAILY 06/26/18 03/21/20 [Levothyroxine 100mcg (0.1MG) Tab] Losartan Potassium 100 mg PO DAILY 06/26/18 03/21/20 Memantine HCl [Memantine 10mg 10 mg PO BID 06/26/18 03/21/20 Tablet] Pravastatin Sodium 80 mg PO HS
[2021-01-07 21:22] VITALS: BP 146/75; PULSE 87; RESP 22; TEMP 36.7
== END 2021-01-07 21:22 | disposition home or self-care (01) ==
PROVIDERS: Emergency Provider Nurse Practitioner; PCP Internal Medicine Adolescent Medicine
DX: B34.9 Viral infection, unspecified (principal); Z20.822 Contact with and (suspected) exposure to COVID-19; I48.0 Paroxysmal atrial fibrillation; I10 Essential (primary) hypertension; E11.9 Type 2 diabetes mellitus without complications; F41.8 Other specified anxiety disorders; K21.9 Gastro-esophageal reflux disease without esophagitis; E78.5 Hyperlipidemia, unspecified; Z79.899 Other long term (current) drug therapy
CPT/HCPCS: G0463; 99202; C9803; U0003; U0005

== ENCOUNTER → 2021-01-09 17:49 | Outpatient (CLI) | payer MEDICARE, BC, SELFPAY ==
[2021-01-09 17:58] LABS: Adenovirus F 40/41, stool Not Detected (NotDetected); Astrovirus Not Detected (NotDetected); Campylobacter Not Detected (NotDetected); Clostridium Difficile A/B, PCR Not Detected (NotDetected); Cryptosporidium Not Detected (NotDetected); Cyclospora Cayetanesis Not Detected (NotDetected); Entamoeba histolytica Not Detected (NotDetected); Enteroaggregative E coli Not Detected (NotDetected); Enteropathogenic E coli Not Detected (NotDetected); Enterotoxigenic E coli Not Detected (NotDetected); Giardia lamblia Not Detected (NotDetected); Norovirus Not Detected (NotDetected); Plesimonas Shigalloides, PCR Not Detected (NotDetected); Rotavirus A Not Detected (NotDetected); Salmonella, PCR Not Detected (NotDetected); Sapovirus Not Detected (NotDetected); Shiga-like toxin E coli Not Detected (NotDetected); Shigella Enterovasive E coli Not Detected (NotDetected); Vibrio Cholerae Not Detected (NotDetected); Vibrio, PCR Not Detected (NotDetected); Yersinia Entercolitica, PCR Not Detected (NotDetected)
== END ==
PROVIDERS: Visit Provider Nurse Practitioner
DX: R19.7 Diarrhea, unspecified (principal)
CPT/HCPCS: 87506

== ENCOUNTER → 2021-02-23 13:35 | Outpatient (CLI) | payer MEDICARE, BC, SELFPAY ==
[2021-02-23 14:16] LABS: Basophils % 0.6 % (0.1-2.0); Eosinophils # 0.1 K/mm3 (0.0-0.4); Eosinophils % 2.8 % (0.1-12.0); Hematocrit 37.3 % (37.0-47.0); Hemoglobin 11.8 g/dL (12.2-16.2); Lymphocytes # 1.9 K/mm3 (0.7-4.5); Lymphocytes % 36.2 % (10-50); Mean Corpuscular HGB Conc 31.7 g/dL (31.8-35.4); Mean Corpuscular Volume 85.3 fl (81-99); Mean Platelet Volume 7.7 fl (7.4-10.4); Monocytes # 0.4 K/mm3 (0.1-1.0); Neutrophils # 2.8 K/mm3 (1.8-7.8); Neutrophils % 53.4 % (37.0-80.0); Platelet Count 280 K/mm3 (142-424); Red Blood Count 4.37 M/mm3 (4.20-5.40); White Blood Count 5.1 K/mm3 (4.8-10.8)
[2021-02-23 15:13] LABS: Alanine Aminotransferase 14 U/L (12-78); Albumin Level 4.7 g/dl (3.5-5.0); Albumin/Globulin Ratio 1.7 (1.1-1.8); Alkaline Phosphatase 74 U/L (38-126); Anion Gap 15.6 mEq/L (5-15); Aspartate Amino Transferase 25 U/L (14-36); Bilirubin,Total 0.2 mg/dl (0.2-1.3); Blood Urea Nitrogen 15 mg/dl (7-17); Calcium 9.3 mg/dl (8.4-10.2); Carbon Dioxide 25 mmol/L (22.0-30.0); Chloride 92 mmol/L (98-107); Chol/HDL Ratio 2.2 (1-3.5); Cholesterol 168 mg/dl (140-200); Estimated Glomerular Filt Rate 54 ml/min (>60); GFR (African American) 66 ML/MIN (>60); Globulin 2.8 g/dL (1.3-3.2); Glucose 118 mg/dl (74-100); HDL Cholesterol 75 mg/dl (40-60); Potassium 4.6 mmoL/L (3.5-5.1); Sodium 128 mmol/L (136-145); Total Protein,Serum 7.5 g/dl (6.3-8.2); Triglycerides 147 mg/dl (30-150); VLDL Cholesterol 29 mg/dL (0-40)
[2021-02-23 15:24] LABS: Direct LDL Cholesterol 78.69 mg/dL (100-129)
[2021-02-23 15:51] LABS: Hemoglobin A1C 5.5 % (4.0-6.0)
[2021-02-23 16:03] LABS: Vitamin B12 572 pg/mL (239-931)
== END ==
PROVIDERS: Visit Provider Internal Medicine Adolescent Medicine
DX: E11.9 Type 2 diabetes mellitus without complications (principal); E78.5 Hyperlipidemia, unspecified; E03.9 Hypothyroidism, unspecified; E53.8 Deficiency of other specified B group vitamins; Z79.84 Long term (current) use of oral hypoglycemic drugs
CPT/HCPCS: 36415; 80053; 80061; 82607; 83036; 84443; 85025

== ENCOUNTER → 2021-04-15 11:23 | Outpatient (CLI) | payer MEDICARE, BC, SELFPAY | PROVIDERS: PCP Internal Medicine Adolescent Medicine; Visit Provider Nurse Practitioner Family | DX: U07.1 COVID-19 (principal) | CPT/HCPCS: C9803; U0003; U0005 ==

== ENCOUNTER 2021-04-22 22:32 | Observation (INO) | payer MEDICARE, BC, SELFPAY ==
[2021-04-22 22:36] VITALS: BP 92/38; PULSE 73; RESP 20; TEMP 36.6; O2SAT 95; BMI 35.9
[2021-04-23] VITALS (27 sets, daily range): BP systolic 107–212; BP diastolic 54–129; PULSE 69–100; RESP 11–18; TEMP 36.6; O2SAT 94–98; BMI 27.9
--- NOTE | 2021-04-23 00:23 | PC.NURSE ---
Pt moved to room 4 at this time
--- NOTE | 2021-04-23 00:55 | XR_ITS ---
PROCEDURE INFORMATION: Exam: XR Chest Exam date and time: 04/23/2021 12:55 AM Age: 75 years old Clinical indication: Shortness of breath and other: Covid; Additional info: Covid + TECHNIQUE: Imaging protocol: XR of the chest. Views: 1 view. COMPARISON: CR XR CHEST PORTABLE PICC PLAC 03/10/2020 11:39 AM FINDINGS: Lungs: The lungs are hypoventilated with some mild reticulonodular opacities in the right lung and left lung base. Hazy opacity left lung base could represent a pleural effusion. Pleural spaces: See Lungs finding. No pneumothorax. Heart/Mediastinum: Unremarkable. No cardiomegaly. Vasculature: Vascular calcifications are present in the neck. Bones/joints: Marked degenerative changes of the shoulders and spine are noted. Gastrointestinal tract: The visualized bowel gas pattern is nonobstructed. IMPRESSION: Right lung and left lung base reticulonodular opacities may be on the basis of the clinical infection noted in the history.
[2021-04-23 01:04] LABS: Basophils % 0.5 % (0.1-2.0); Eosinophils % 0.2 % (0.1-12.0); Hematocrit 35.3 % (37.0-47.0); Hemoglobin 11.1 g/dL (12.2-16.2); Lymphocytes # 0.8 K/mm3 (0.7-4.5); Lymphocytes % 12.4 % (10-50); Mean Corpuscular HGB Conc 31.5 g/dL (31.8-35.4); Mean Corpuscular Volume 85.5 fl (81-99); Mean Platelet Volume 7.7 fl (7.4-10.4); Monocytes # 0.3 K/mm3 (0.1-1.0); Neutrophils # 5.2 K/mm3 (1.8-7.8); Platelet Count 261 K/mm3 (142-424); Red Blood Count 4.12 M/mm3 (4.20-5.40); Red Cell Distribution Width 15.5 % (11.5-17.5); White Blood Count 6.2 K/mm3 (4.8-10.8)
[2021-04-23 01:11] LABS: Chloride 97 mmol/L (98-107); Sodium 133 mmol/L (136-145)
[2021-04-23 01:14] LABS: Alanine Aminotransferase 15 U/L (12-78); Albumin Level 4.4 g/dl (3.5-5.0); Albumin/Globulin Ratio 1.3 (1.1-1.8); Alkaline Phosphatase 99 U/L (38-126); Aspartate Amino Transferase 29 U/L (14-36); Bilirubin,Total 0.5 mg/dl (0.2-1.3); Blood Urea Nitrogen 14 mg/dl (7-17); Calcium 9.4 mg/dl (8.4-10.2); Carbon Dioxide 24 mmol/L (22.0-30.0); Creatinine Clearance Estimated 43 mL/min (50-200); Estimated Glomerular Filt Rate 32 ml/min (>60); GFR (African American) 38 ML/MIN (>60); Globulin 3.4 g/dL (1.3-3.2); Glucose 164 mg/dl (74-100); Total Protein,Serum 7.8 g/dl (6.3-8.2)
--- NOTE | 2021-04-23 01:43 | HMH.EDGENADL ---
ED Disposition Clinical Impression: EDU (acute kidney injury), Viral pneumonia, COVID-19 virus infection Disposition: Admitted As Inpatient Condition on Discharge: Fair Referrals: Sravan Anderson MD [Primary Care Provider] - - Critical Care Critical Care Time: No Attestation: On 04/22/21, the high probability of a clinically significant, sudden or life threatening deterioration of the following system(s) required my full and direct attention, intervention and personal management. The time I documented below is in addition to time spent performing reported procedures but includes the following listed in this critical care notation. Medical Decision Making - Moe Inquiry Pt receiving controlled substance: No Vital Signs: 04/22/21 22:36 Temperature 97.8 F Temperature Source Oral Pulse Rate [Right Radial] 73 Respiratory Rate 20 Blood Pressure [Right Arm] 92/38 L Blood Pressure Mean [Right Arm] 56 Blood Pressure Source [Right Arm] Manual Cuff/ Auscultation Blood Pressure Position [Right Arm] Sitting 02 Sat by Pulse Oximetry 95 Oxygen Delivery Method Room Air - Lab Data Lab Results 04/23/21 01:00: WBC 6.2, RBC 4.12 L, Hgb 11.1 L, Hct 35.3 L, MCV 85.5, MCH 27.0, MCHC 31.5 L, RDW 15.5, Plt Count 261, MPV 7.7, Neut % (Auto) 83.0 H, Lymph % (Auto) 12.4, [place] % (Auto) 4.0, Eos % (Auto) 0.2, Baso % (Auto) 0.5, Neut # (Auto) 5.2, Lymph # (Auto) 0.8, [place] # (Auto) 0.3, Eos # (Auto) 0.0, Baso # (Auto) 0.0 04/23/21 01:00: Sodium 133 L, Potassium 5.0, Chloride 97 L, Carbon Dioxide 24, Anion Gap 17.0 H, BUN 14, Creatinine 1.60 H, Estimated Creat Clear 43, Estimated GFR 32 L, Est GFR ( Amer) 38 L, Glucose 164 H, Calcium 9.4, Total Bilirubin 0.5, AST 29, ALT 15, Alkaline Phosphatase 99, Total Protein 7.8, Albumin 4.4, Globulin 3.4 H, Albumin/Globulin Ratio 1.3 Result diagrams: 04/23/21 01:00 04/23/21 01:00 Orders (Tests/Meds): ED MEDICATIONS Generic Name Dose Route Start Last Admin Trade Name Antonio PRN Reason Stop Dose Admin Lactated Ringer's 1,000 mls @ 999 mls/hr 04/23/21 01:00 04/23/21 01:03 Lactated Ringer's 1000 Ml Bag IV 04/23/21 02:00 999 mls/hr .Q1H1M JG Administration ORDERS Category Date Time Status Urinalysis-Acute [Urinalysis and Microscopic] Stat Lab 04/23/21 02:38 Ordered Medical Decision Narrative: ddx includes but not limited to viral pneumonia, bacterial pneumonia, dehydration, electrolyte abnormality, edu. hds, nad, with generalized weakness on exam but able to move all extremities spontaneously and against force to pull herself up to sit up and allow lung auscultation on back. gcs 15. on room air. looks tired but nonfocal neuro exam. initial bp in triage 90/30s but on serial rechecks prior to initiation of ivf had sbp in 130s. has edu on lab work. given ivf fluid here in ed for suspected dehydration contributing to weakness. cxr shows bibasilar opacities concerning for viral pneumonia, possibly covid pneumonia in setting of known covid 19 infection. patient will be admitted to hospital for further monitoring of edu. General Adult HPI - General Chief complaint: Upper Respiratory Infection Stated complaint: covid+ fever, cough Time Seen by Provider: 04/23/21 01:00 Mode of Arrival: Wheelchair Limitations: No Limitations Description of Symptoms (Recalled from ER Triage Doc. by RN): Pt COVID+ on 04/15 arrives via POV for continued COVID symptoms. Pt reports weakness and body aches that have gotten worse. Pt denies SOA or chest pain. Denies N/V/D. Denies fevers. - History of Present Illness HPI narrative: 75-year-old female with a history of hypertension, hyperlipidemia, diabetes mellitus, obesity presents for evaluation of generalized weakness. Patient reports that she has symptoms that started 2 days before [place] including generalized weakness, malaise, fevers, cough, anorexia, intermittent shortness of breath, diarrhea. Tested positive for covid 19 on
[2021-04-23 03:47] LABS: Influenza A, PCR Not Detected (NotDetected); Influenza B, PCR Not Detected (NotDetected)
[2021-04-23 03:48] LABS: Coronavirus 19, PCR Detected (NotDetected)
--- NOTE | 2021-04-23 05:53 | PC.NURSE ---
blood collected and sent to lab
--- NOTE | 2021-04-23 07:15 | PC.NURSE ---
Patient was repositioned in bed. Lights were turned off to make patient more comfortable.
--- NOTE | 2021-04-23 12:44 | HMH.HP ---
*Admission Date: 04/23/21 *Chief complaint: Weakness/cough/vomiting *History of present illness: 75-year-old female presented to the emergency department this morning with her . She has been fully vaccinated for COVID-19 but lots of family members were around for Cyrus who had a variety of respiratory symptoms and she and her started feeling bad 2 days ago. Symptoms progressed to nausea and vomiting, unable to keep food or fluids down. Presented to the emergency department, found to have acute kidney injury. X-ray showed signs of viral pneumonia. Covid swab positive for PCR testing. Influenza negative. Admitted to hospital for IV fluids. No oxygen requirement in the ER or after admission. [facility] History I have reviewed the patient's past medical history: Yes Medical History: Reports:: Anxiety, Arrhythmia, Atrial Fibrillation, Depression, Diabetes Mellitus Type 2, Gastroesophageal Reflux Disease(GERD), Hyperlipidemia, Hypertension Denies:: Cancer, Diabetes Mellitus Type 1, Internal Pacemaker, Lung Disease, MRSA, Seizures *Have you ever received a pneumonia vaccine?: Yes *Have you received a flu vaccine this season?: No Laterality Cases: Bilateral: Arthroscopy Knee, Arthroscopy Shoulder Other Surgeries: Yes: Appendectomy, Cholecystectomy, Hysterectomy-Total, Other. No: Pacemaker Amputation: No Fractures: No - *Social History Last grade of school completed: High school graduate Smoking Status: Never smoker Alcohol Intake: never *Occupational Status:: retired Housing: house Household Members: spouse, family *Travel in the last 8 weeks: None - Psychiatric History Pschychiatric History:: Reports:: Anxiety, Depression Family Hx:: Unable to obtain Review of Systems - Review of Systems Review of systems:: pertinent systems reviewed and negative unless documented below Meds Home Medications Medication Instructions Recorded Confirmed Type Donepezil HCl [Donepezil ODT 5mg] 5 mg PO DAILY 06/26/18 04/23/21 History Levothyroxine Sodium 100 mg PO DAILY 06/26/18 04/23/21 History [Levothyroxine 100mcg (0.1MG) Tab] Losartan Potassium 100 mg PO DAILY 06/26/18 04/23/21 History Memantine HCl [Memantine 10mg 10 mg PO BID 06/26/18 04/23/21 History Tablet] Pravastatin Sodium 80 mg PO HS 06/26/18 04/23/21 History Sitagliptin Phos/Metformin HCl 1 tab PO BID 06/26/18 04/23/21 History [Janumet 50-1,000 mg Tablet] Chlordiazepoxide/Clidinium Br 1 each PO ACHS 10/14/18 04/23/21 History [Librax Capsule] Melatonin 10 mg PO HS 10/14/18 04/23/21 History Cyanocobalamin (Vitamin B-12) 1,000 mcg IM WEEKLY 03/10/20 04/23/21 History [Cyanocobalamin 1,000mcg/mL Vial] Famotidine [Pepcid 20mg Tablet] 20 mg PO BID 03/10/20 04/23/21 History Hydralazine HCl [Hydralazine HCl 50 mg PO TID 03/10/20 04/23/21 History 25mg Tablet] Loperamide HCl [Imodium 2 mg 2 mg PO Q2HP PRN 03/10/20 04/23/21 History capsule] Phenazopyridine HCl [Pyridium] 200 mg PO TID 03/10/20 04/23/21 History Semaglutide [Ozempic] 5 mg SQ WEEKLY 03/10/20 04/23/21 History Simethicone [Gas Relief] 80 mg PO DAILYP PRN 03/10/20 04/23/21 History Sodium Chloride [Nasal Wilson] 44 ml NS DAILYP PRN 03/10/20 04/23/21 History Escitalopram Oxalate 10 mg PO DAILY 04/23/21 04/23/21 History Quetiapine Fumarate 200 mg PO HS 04/23/21 04/23/21 History Allergies Allergy/AdvReac Type Severity Reaction Status Date / Time aspirin [ASPIRIN] Allergy Unknown Verified 01/07/21 20:30 hydroxyzine [HYDROXYZINE] Allergy Unknown Verified 01/07/21 20:30 meperidine [From DEMEROL] Allergy Unknown Verified 01/07/21 20:30 rosuvastatin [From CRESTOR] Allergy Unknown Verified 01/07/21 20:30 Exam Vital signs and Labs for Last 24 Hours: Temp Pulse Resp BP Pulse Ox 97.8 F 76 16 212/88 H 96 04/22/21 22:36 04/23/21 12:15 04/23/21 12:15 04/23/21 12:15 04/23/21 12:15 Laboratory Results - last 24 hr 04/23/21 01:00: WBC 6.2, RBC 4.12 L, Hgb 11.1 L, Hct 35.3
[2021-04-23 13:15] LABS: Blood Urea Nitrogen 15 mg/dl (7-17); Creatinine Clearance Estimated 38 mL/min (50-200); Estimated Glomerular Filt Rate 37 ml/min (>60); GFR (African American) 45 ML/MIN (>60)
[2021-04-23 13:16] LABS: Carbon Dioxide 23 mmol/L (22.0-30.0)
[2021-04-23 13:20] LABS: Calcium 9.2 mg/dl (8.4-10.2)
[2021-04-23 13:29] LABS: Chloride 97 mmol/L (98-107); Sodium 132 mmol/L (136-145)
[2021-04-23 13:30] LABS: Anion Gap 17.2 mEq/L (5-15); Potassium 5.2 mmoL/L (3.5-5.1)
[2021-04-23 13:33] LABS: Glucose 171 mg/dl (74-100)
--- NOTE | 2021-04-23 14:48 | P.CONPHA_ITS ---
[facility] Pharmacy VTE Monitoring - Patient Demographics Admission date: 04/23/21 Report Date: 04/23/21 Time: 14:48 Allergies/Adverse Reactions: Patient Allergies aspirin [ASPIRIN] Allergy (Unknown, Verified 01/07/21 20:30) hydroxyzine [HYDROXYZINE] Allergy (Unknown, Verified 01/07/21 20:30) meperidine [From DEMEROL] Allergy (Unknown, Verified 01/07/21 20:30) rosuvastatin [From CRESTOR] Allergy (Unknown, Verified 01/07/21 20:30) Height: 1.55 m Weight: 67.132 kg Patient Problems: Current Active Problems Diabetes (Chronic) EDU (acute kidney injury) (Acute) Viral pneumonia (Acute) COVID-19 virus infection (Acute) - VTE Risk Labs: VTE Related Lab Results Hgb 11.1 g/dL (12.2-16.2) L 04/23/21 01:00 Hct 35.3 % (37.0-47.0) L 04/23/21 01:00 Plt Count 261 K/mm3 (142-424) 04/23/21 01:00 BUN 14 mg/dl (7-17) 04/23/21 01:00 BUN 15 mg/dl (7-17) 04/23/21 01:00 Creatinine 1.60 mg/dl (0.52-1.04) H 04/23/21 01:00 Creatinine 1.40 mg/dl (0.52-1.04) H 04/23/21 01:00 Estimated Creat Clear 43 mL/min (50-200) 04/23/21 01:00 Estimated Creat Clear 38 mL/min (50-200) 04/23/21 01:00 VTE Score: 3 VTE Risk Level: Low Risk - Prophylaxis VTE Prophylaxis Ordered?: Yes Types of VTE Prophylaxis: TEDS Knee High Location of Applied Device: Bilateral Lower Extremeties
--- NOTE | 2021-04-23 16:14 | PC.NURSE ---
RN notified of high bp
[2021-04-23 17:07] LABS: POC Glucose,Bedside 231 (70-110)
--- NOTE | 2021-04-23 17:47 | PC.NURSE ---
PT IS RESTING IN BED. ALERT AND ORIENTED X4. PT HAS BEEN AMBULATING TO THE BATHROOM. O2 SATURATION HAS MAINTAINED 90-95% ON ROOM AIR. PCP NOTIFIED OF PT'S ELEVATED BP (NORVASC 10 MG X1 ORDERED). LUNG SOUNDS DIMINISHED. ABDOMEN SOFT/NON TENDER WITH ACTIVE BOWEL SOUNDS. WILL CONTINUE TO MONITOR.
[2021-04-23 22:26] LABS: POC Glucose,Bedside 168 (70-110)
[2021-04-24] VITALS: BP 168/78; PULSE 94; RESP 18; TEMP 36.6; O2SAT 96
[2021-04-24 04:00] VITALS: BP 152/78; PULSE 91; RESP 17; TEMP 36.6; O2SAT 92
[2021-04-24 05:20] VITALS: BMI 27.9
[2021-04-24 06:28] LABS: Basophils % 0.1 % (0.1-2.0); Eosinophils % 0.1 % (0.1-12.0); Hematocrit 30.5 % (37.0-47.0); Hemoglobin 9.8 g/dL (12.2-16.2); Lymphocytes # 0.7 K/mm3 (0.7-4.5); Mean Corpuscular HGB Conc 31.9 g/dL (31.8-35.4); Mean Corpuscular Hemoglobin 26.9 pg (27.0-31.2); Mean Corpuscular Volume 84.3 fl (81-99); Mean Platelet Volume 7.7 fl (7.4-10.4); Monocytes # 0.3 K/mm3 (0.1-1.0); Monocytes % 3.9 % (1.7-9.3); Neutrophils # 5.6 K/mm3 (1.8-7.8); Neutrophils % 84.9 % (37.0-80.0); Platelet Count 278 K/mm3 (142-424); Red Blood Count 3.62 M/mm3 (4.20-5.40); Red Cell Distribution Width 15.4 % (11.5-17.5); White Blood Count 6.6 K/mm3 (4.8-10.8)
[2021-04-24 06:35] LABS: POC Glucose,Bedside 133 (70-110)
--- NOTE | 2021-04-24 06:42 | HMH.ACPN2 ---
Internal Medicine - PN: Subj *Date: 04/24/21 *Time: 06:42 Exam Vital signs and Labs for Last 24 Hours: Temp Pulse Resp BP Pulse Ox 97.8 F 91 H 17 152/78 H 92 L 04/24/21 04:00 04/24/21 04:00 04/24/21 04:00 04/24/21 04:00 04/24/21 04:00 Laboratory Results - last 24 hr 04/23/21 01:00: Sodium 132 L, Potassium 5.2 H, Chloride 97 L, Carbon Dioxide 23, Anion Gap 17.2 H, BUN 15, Creatinine 1.40 H, Estimated Creat Clear 38, Estimated GFR 37 L, Est GFR ( Amer) 45 L, Glucose 171 H, Calcium 9.2 04/23/21 16:56: POC Glucose 231 H 04/23/21 22:10: POC Glucose 168 H 04/24/21 06:26: POC Glucose 133 H I & O for Last 24 hours: Intake & Output 04/21/21 04/22/21 04/23/21 04/24/21 23:59 23:59 23:59 23:59 Intake Total 577 / 577 Balance 577 / 577 Weight 86.183 kg 67.132 kg 67.132 kg Assessment and Plan (1) EDU (acute kidney injury) Status: Acute Category: Medical Code(s): N17.9 - Acute kidney failure, unspecified (2) COVID-19 virus infection Status: Acute Category: Medical Code(s): U07.1 - COVID-19 (3) Viral pneumonia Status: Acute Category: Medical Code(s): J12.9 - Viral pneumonia, unspecified (4) Diabetes Status: Chronic Category: Medical Code(s): E11.9 - Type 2 diabetes mellitus without complications
[2021-04-24 07:06] LABS: Alanine Aminotransferase 13 U/L (12-78); Albumin Level 3.5 g/dl (3.5-5.0); Albumin/Globulin Ratio 1.1 (1.1-1.8); Alkaline Phosphatase 70 U/L (38-126); Anion Gap 11.3 mEq/L (5-15); Aspartate Amino Transferase 25 U/L (14-36); Bilirubin,Total 0.2 mg/dl (0.2-1.3); Blood Urea Nitrogen 16 mg/dl (7-17); Calcium 8.6 mg/dl (8.4-10.2); Carbon Dioxide 25 mmol/L (22.0-30.0); Chloride 103 mmol/L (98-107); Creatinine Clearance Estimated 53 mL/min (50-200); Estimated Glomerular Filt Rate 61 ml/min (>60); GFR (African American) 74 ML/MIN (>60); Globulin 3.2 g/dL (1.3-3.2); Glucose 146 mg/dl (74-100); Potassium 4.3 mmoL/L (3.5-5.1); Sodium 135 mmol/L (136-145); Total Protein,Serum 6.7 g/dl (6.3-8.2)
[2021-04-24 08:00] VITALS: BP 152/76; PULSE 92; RESP 18; TEMP 36.6; O2SAT 94; O2SAT 95
--- NOTE | 2021-04-24 08:56 | HMH.DCSUM ---
General - General Admission date:: 04/23/21 Discharge date: 04/24/21 HPI HPI: 75-year-old female presented to the emergency department this morning with her . She has been fully vaccinated for COVID-19 but lots of family members were around for Cyrus who had a variety of respiratory symptoms and she and her started feeling bad 2 days ago. Symptoms progressed to nausea and vomiting, unable to keep food or fluids down. Presented to the emergency department, found to have acute kidney injury. X-ray showed signs of viral pneumonia. Covid swab positive for PCR testing. Influenza negative. Admitted to hospital for IV fluids. No oxygen requirement in the ER or after admission. Hospital Course Hospital Course: 75-year-old female admitted for breakthrough Covid infection in conjunction with high risk comorbidities. Patient also noted to have EDU on admission. Has remained stable on room air since admission. Has been treated during hospitalization with monoclonal antibody therapy. Labs morning show improvement in her creatinine back to baseline. Tolerating good p.o. intake. Able to ambulate independently to the bathroom. Of note, her is also admitted and she is possibly going home by herself. We will have physical therapy see her and evaluate for any further recommendations/DME. Examined on day of discharge. Medically stable for discharge home. We will have close follow-up to evaluate continued improvement/resolution of Covid symptoms. Objective Vital signs: Temp Pulse Resp BP Pulse Ox 97.9 F 92 H 18 152/76 H 95 04/24/21 08:00 04/24/21 08:00 04/24/21 08:00 04/24/21 08:00 04/24/21 08:00 Narrative: - Constitutional no acute distress - *Routine HEENT Exam Head: Present: normocephalic Eye: Present: EOMI, PERRL ENT: Present: mucous membranes moist - *Routine Neck Exam Present: supple. Absent: lymphadenopathy - *Routine Respiratory Exam Present: CTA bilaterally - *Routine Cardiovascular Exam Present: RRR - *Routine Abdominal Exam Present: soft, normoactive bowel sounds. Absent: tenderness - *Routine Extremities Exam Absent: cyanosis, clubbing, edema - *Routine Skin Exam Present: warm. Absent: rash - *Routine Neurological Exam Present: alert, oriented X3 Results Labs on day of discharge: Labs from last 24 hours 04/24/21 04/24/21 04/24/21 06:26 05:53 05:53 WBC 6.6 RBC 3.62 L Hgb 9.8 L Hct 30.5 L MCV 84.3 MCH 26.9 L MCHC 31.9 RDW 15.4 Plt Count 278 MPV 7.7 Neut % (Auto) 84.9 H Lymph % (Auto) 11.0 [place] % (Auto) 3.9 Eos % (Auto) 0.1 Baso % (Auto) 0.1 Neut # (Auto) 5.6 Lymph # (Auto) 0.7 [place] # (Auto) 0.3 Eos # (Auto) 0.0 Baso # (Auto) 0.0 Sodium 135 L Potassium 4.3 Chloride 103 Carbon Dioxide 25 Anion Gap 11.3 BUN 16 Creatinine 0.90 D Estimated Creat Clear 53 Estimated GFR 61 Est GFR ( Amer) 74 D Glucose 146 H POC Glucose 133 H Calcium 8.6 Total Bilirubin 0.2 AST 25 ALT 13 Alkaline Phosphatase 70 Total Protein 6.7 Albumin 3.5 D Globulin 3.2 Albumin/Globulin Ratio 1.1 04/23/21 04/23/21 04/23/21 22:10 16:56 01:00 WBC RBC Hgb Hct MCV MCH MCHC RDW Plt Count MPV Neut % (Auto) Lymph % (Auto) [place] % (Auto) Eos % (Auto) Baso % (Auto) Neut # (Auto) Lymph # (Auto) [place] # (Auto) Eos # (Auto) Baso # (Auto) Sodium 132 L Potassium 5.2 H Chloride 97 L Carbon Dioxide 23 Anion Gap 17.2 H BUN 15 Creatinine 1.40 H Estimated Creat Clear 38 Estimated GFR 37 L Est GFR ( Amer) 45 L Glucose 171 H POC Glucose 168 H 231 H Calcium 9.2 Total Bilirubin AST ALT Alkaline Phosphatase Total Protein Albumin Globulin Albumin/Globulin Ratio DS: Diag
[2021-04-24 11:16] VITALS: BP 162/84; PULSE 93; RESP 16; TEMP 36.6; O2SAT 94
--- NOTE | 2021-04-24 11:33 | HMH.PTEV ---
Physical Therapy Evaluation Rehab PT IP Evaluation Start: 04/24/21 08:58 Freq: ONCE Status: Active Protocol: Document 04/24/21 11:31 BHARAT (Rec: 04/24/21 11:33 PHOKATHARINE [id number]) Subjective/History History History 75 yowf adm to [facility] with EDU and COVID-19. She reports she is independent with all moibilty, lives with spouse, and has no steps to enter the home. Subjective Subjective No c/o this am. Rehab PT IP Eval Objective Appearance Patient Behavior Appropriate Patient Orientation Person,Place,Time Difficulty following instructions none Speech Pattern Clear Ambulation Patient Able to Ambulate Yes Ambulation Observation IP General Gait Pattern Observation No Deviations/Normal Ambulation Distance (feet) 50 Ambulation Assistive Device None Ambulation Ability Independent Balance Ability to Arise Able, w/o using arms Sitting Balance Steady, safe Standing Balance Narrow stance w/o support Dynamic Sitting Balance Ability Good Dynamic Standing Balance Ability Good Transfers Bed Transfer Ability Independent Chair Transfer Ability Independent Sit to Stand Bed Transfer Ability Independent Sit to Stand Chair Transfer Ability Independent Rehab PT IP prob,goals,plan Problems Date of Evaluation: 04/24/21 Discharge Plan PT Discharge Plan Pt is currently at baseline for all mobility and is appropriate to return home once medically stable. G -code Required No Eval Complexity Eval Charge Codes 24188 - Moderate Complexity PHYSICIAN CERTIFICATION: I certify the specified therapy services for Yuki Barraza are required, authorized, and reviewed every 30 days.
[2021-04-24 11:57] LABS: POC Glucose,Bedside 117 (70-110)
== END 2021-04-24 15:05 | disposition home or self-care (01) ==
LOC: ER 04-23 03:10 → 2ND 04-23 14:53
PROVIDERS: Admitting Provider Family Medicine; Emergency Provider Student in an Organized Health Care Education/Training Program; PCP Internal Medicine Adolescent Medicine; Visit Provider Internal Medicine Adolescent Medicine
DX: J12.82 Pneumonia due to coronavirus disease 2019 (principal); N17.9 Acute kidney failure, unspecified; U07.1 COVID-19; E11.9 Type 2 diabetes mellitus without complications; E03.9 Hypothyroidism, unspecified; Z79.84 Long term (current) use of oral hypoglycemic drugs; Z79.899 Other long term (current) drug therapy; Z20.822 Contact with and (suspected) exposure to COVID-19
CPT/HCPCS: G0378; 71045; 80048; 80053; 82962; 85025; 96365; 96367; 96375; 97162; 99285; C9803; U0003; U0005

== ENCOUNTER 2021-06-19 16:47 | Observation (INO) | payer MEDICARE, BC, SELFPAY ==
[2021-06-19] VITALS (8 sets, daily range): BP systolic 86–196; BP diastolic 62–88; PULSE 90–106; RESP 14–21; TEMP 36.8–36.9; O2SAT 95–99; BMI 28.3; BMI 29.2
[2021-06-19 17:42] LABS: Chloride 98 mmol/L (98-107); Potassium 4.6 mmoL/L (3.5-5.1); Sodium 132 mmol/L (136-145)
[2021-06-19 17:45] LABS: Alanine Aminotransferase 21 U/L (12-78); Albumin Level 4.6 g/dl (3.5-5.0); Albumin/Globulin Ratio 1.4 (1.1-1.8); Alkaline Phosphatase 81 U/L (38-126); Anion Gap 14.6 mEq/L (5-15); Aspartate Amino Transferase 37 U/L (14-36); Basophils % 0.6 % (0.1-2.0); Bilirubin,Total 0.4 mg/dl (0.2-1.3); Blood Urea Nitrogen 32 mg/dl (7-17); Carbon Dioxide 24 mmol/L (22.0-30.0); Creatinine Clearance Estimated 45 mL/min (50-200); Eosinophils # 0.1 K/mm3 (0.0-0.4); Estimated Glomerular Filt Rate 44 ml/min (>60); GFR (African American) 53 ML/MIN (>60); Globulin 3.3 g/dL (1.3-3.2); Glucose 125 mg/dl (74-100); Hematocrit 34.1 % (37.0-47.0); Hemoglobin 10.7 g/dL (12.2-16.2); Lymphocytes # 1.3 K/mm3 (0.7-4.5); Lymphocytes % 24.8 % (10-50); Mean Corpuscular HGB Conc 31.3 g/dL (31.8-35.4); Mean Corpuscular Hemoglobin 27.1 pg (27.0-31.2); Mean Corpuscular Volume 86.6 fl (81-99); Monocytes # 0.4 K/mm3 (0.1-1.0); Monocytes % 6.5 % (1.7-9.3); Neutrophils # 3.5 K/mm3 (1.8-7.8); Neutrophils % 66.1 % (37.0-80.0); Platelet Count 253 K/mm3 (142-424); Red Blood Count 3.94 M/mm3 (4.20-5.40); Red Cell Distribution Width 16.4 % (11.5-17.5); Total Protein,Serum 7.9 g/dl (6.3-8.2); White Blood Count 5.3 K/mm3 (4.8-10.8)
--- NOTE | 2021-06-19 17:45 | ECG_ITS ---
APPROVED REPORT Exam: Resting ECG HR:93 bpm ECG Measurements Heart Rate 93 AXES CA 152 P 56 QRSd 83 QRS 11 QT 359 T 156 QTc 410 Conclusion SINUS RHYTHM LOW QRS VOLTAGE IN PRECORDIAL LEADS [QRS DEFLECTION < 1.0 mV IN CHEST LEADS] ST DEVIATION AND MODERATE T-WAVE ABNORMALITY, CONSIDER LATERAL ISCHEMIA [-0.1+ mV T-WAVE IN I/aVL/V5/V6] ABNORMAL ECG UNCONFIRMED REPORT Electronically signed by : Sravan Anderson MD 06/20/2021 17:23:03
--- NOTE | 2021-06-19 17:55 | HMH.EDGENADL ---
ED Disposition Clinical Impression: Orthostatic hypotension, Near syncope Disposition: Admitted as Observation Condition on Discharge: Fair - Critical Care Critical Care Time: No Attestation: On 06/19/21, the high probability of a clinically significant, sudden or life threatening deterioration of the following system(s) required my full and direct attention, intervention and personal management. The time I documented below is in addition to time spent performing reported procedures but includes the following listed in this critical care notation. Medical Decision Making - Medical Records Medical records reviewed: Yes: I reviewed the patient's medical records. MR Comment: Reviewed discharge records from [facility] admission 06/09/2021 through 06/10/2021. Admitted for syncope, blood pressure 70 on arrival. Improved with IV fluids. Hydralazine and Librax discontinued at discharge. - Moe Inquiry Pt receiving controlled substance: No Vital Signs: 06/19/21 16:55 06/19/21 17:17 06/19/21 17:27 Temperature 98.4 F Temperature Source Oral Pulse Rate 94 H 98 H Pulse Rate [Left Radial] 95 H Pulse Rate [Orthostatic Lying] Pulse Rate [Orthostatic Standing] Respiratory Rate 16 14 21 Blood Pressure 132/75 154/88 H Blood Pressure [Orthostatic Lying] Blood Pressure [Orthostatic Standing] Blood Pressure [Right Radial Artery] 154/88 H Blood Pressure Mean [Right Radial Artery] 110 02 Sat by Pulse Oximetry 99 97 95 Oxygen Delivery Method Room Air 06/19/21 17:47 06/19/21 18:01 Temperature Temperature Source Pulse Rate 91 H Pulse Rate [Left Radial] Pulse Rate [Orthostatic Lying] 95 H Pulse Rate [Orthostatic Standing] 106 H Respiratory Rate 14 Blood Pressure 172/77 H Blood Pressure [Orthostatic Lying] 154/88 H Blood Pressure [Orthostatic Standing] 86/64 L Blood Pressure [Right Radial Artery] Blood Pressure Mean [Right Radial Artery] 02 Sat by Pulse Oximetry 96 Oxygen Delivery Method - Lab Data Lab Results 06/19/21 17:15: WBC 5.3, RBC 3.94 L, Hgb 10.7 L, Hct 34.1 L, MCV 86.6, MCH 27.1, MCHC 31.3 L, RDW 16.4, Plt Count 253, MPV 8.0, Neut % (Auto) 66.1, Lymph % (Auto) 24.8, [place] % (Auto) 6.5, Eos % (Auto) 2.0, Baso % (Auto) 0.6, Neut # (Auto) 3.5, Lymph # (Auto) 1.3, [place] # (Auto) 0.4, Eos # (Auto) 0.1, Baso # (Auto) 0.0 06/19/21 17:15: Sodium 132 L, Potassium 4.6, Chloride 98, Carbon Dioxide 24, Anion Gap 14.6, BUN 32 H, Creatinine 1.20 H, Estimated Creat Clear 45, Estimated GFR 44 L, Est GFR ( Amer) 53 L, Glucose 125 H, Calcium 9.0, Total Bilirubin 0.4, AST 37 H, ALT 21, Alkaline Phosphatase 81, Total Protein 7.9, Albumin 4.6, Globulin 3.3 H, Albumin/Globulin Ratio 1.4 06/19/21 17:15: Troponin I < 0.01 06/19/21 18:59: SARS-CoV-2 (PCR) Not detected, Influenza A Untype (PCR) Not detected, Influenza Type B (PCR) Not detected Result diagrams: 06/19/21 17:15 06/19/21 17:15 Orders (Tests/Meds): ED MEDICATIONS Generic Name Dose Route Start Last Admin Trade Name Freq PRN Reason Stop Dose Admin Sodium Chloride 1,000 mls @ 999 mls/hr 06/19/21 17:45 06/19/21 17:49 Sod Chlor 0.9% 1000ml Bag IV 06/19/21 18:45 999 mls/hr .Q1H1M JG Administration Sodium Chloride 10 ml 06/19/21 17:31 Sodium Chloride 0.9% 10ml Flush Syringe IV 07/19/21 17:30 NEEDED PRN Maintain IV Site ORDERS Category Date Time Status Troponin I Q3H Lab 06/19/21 21:30 Ordered Troponin I Q3H Lab 06/20/21 00:30 Ordered - ECG Data Tracing #1 EKG interpreted by Devan Baker MD: Rhythm: sinus Rate: 93 [place]: normal Ectopy: none Conduction: normal ST Segment Changes: Nonspecific T Wave Changes: Nonspecific Q Waves: none No evidence of acute ischemia or injury - Physician Consults Physician Consulted: Christopher Time: 18:58 Reason -: Admission, Pt condition Comment/Response: Agrees to admit the patient to the hospital. We discussed the patien
[2021-06-19 19:03] LABS: Troponin I < 0.01 ng/ml (0.00-0.034)
[2021-06-19 19:06] LABS: Coronavirus 19, PCR Not Detected (NotDetected); Influenza A, PCR Not Detected (NotDetected); Influenza B, PCR Not Detected (NotDetected)
[2021-06-19 21:35] LABS: POC Glucose,Bedside 93 (70-110)
[2021-06-20 03:54] VITALS: BP 185/77; PULSE 89; RESP 18; O2SAT 95
--- NOTE | 2021-06-20 03:56 | PC.NURSE ---
No acute changes from previous assessment. Lungs CTA bilaterally, pt denies chest pain, vital signs as charted. Pt has been awake most of the shift, denies needs or complaints of. Will continues to monitor.
--- NOTE | 2021-06-20 06:53 | PC.NURSE ---
ALL CHARTING AND PT CARE BY ANTHONY, [employer], DONE UNDER MY DIRECT SUPERVISION
[2021-06-20 06:56] LABS: POC Glucose,Bedside 120 (70-110)
--- NOTE | 2021-06-20 07:05 | PC.NURSE ---
REPORT GIVEN TO ISMALE NDIAYE
--- NOTE | 2021-06-20 07:25 | P.CONPHA_ITS ---
[facility] Pharmacy VTE Monitoring - Patient Demographics Admission date: 06/20/21 Report Date: 06/20/21 Time: 07:25 Allergies/Adverse Reactions: Patient Allergies aspirin [ASPIRIN] Allergy (Unknown, Verified 01/07/21 20:30) hydroxyzine [HYDROXYZINE] Allergy (Unknown, Verified 01/07/21 20:30) meperidine [From DEMEROL] Allergy (Unknown, Verified 01/07/21 20:30) rosuvastatin [From CRESTOR] Allergy (Unknown, Verified 01/07/21 20:30) Height: 1.55 m Weight: 70.4 kg Patient Problems: Current Active Problems Orthostatic hypotension (Acute) Near syncope (Acute) - VTE Risk Labs: VTE Related Lab Results Hgb 10.7 g/dL (12.2-16.2) L 06/19/21 17:15 Hct 34.1 % (37.0-47.0) L 06/19/21 17:15 Plt Count 253 K/mm3 (142-424) 06/19/21 17:15 BUN 32 mg/dl (7-17) H 06/19/21 17:15 Creatinine 1.20 mg/dl (0.52-1.04) H 06/19/21 17:15 Estimated Creat Clear 45 mL/min (50-200) 06/19/21 17:15 Was VTE Risk Assessment Performed: Yes VTE Score: 2 VTE Risk Level: Very Low Risk Clinical Trial Participant: No - Prophylaxis VTE Prophylaxis Ordered?: Yes Types of VTE Prophylaxis: TEDS Knee High
[2021-06-20 07:34] VITALS: O2SAT 97
[2021-06-20 07:39] LABS: Anion Gap 14.1 mEq/L (5-15); Blood Urea Nitrogen 24 mg/dl (7-17); Calcium 8.8 mg/dl (8.4-10.2); Carbon Dioxide 22 mmol/L (22.0-30.0); Chloride 107 mmol/L (98-107); Creatinine Clearance Estimated 56 mL/min (50-200); Estimated Glomerular Filt Rate 70 ml/min (>60); GFR (African American) 85 ML/MIN (>60); Glucose 116 mg/dl (74-100); Potassium 4.1 mmoL/L (3.5-5.1); Sodium 139 mmol/L (136-145)
[2021-06-20 07:40] VITALS: BP 165/65; PULSE 96; RESP 20; TEMP 36.9; O2SAT 97
--- NOTE | 2021-06-20 09:08 | HMH.HPDC ---
General - General Admission date:: 06/19/21 Discharge date: 06/20/21 *Admission Date: 06/20/21 *Chief complaint: Weakness and hypotension *History of present illness: 75-year-old white female who over the past couple of weeks has been admitted to [facility] for hypotension and significant work-up for mental status changes, was diagnosed with orthostatic hypotension, had a significant heart and neuro work-up which was essentially unrevealing and was discharged home but no real medication changes were made she is continue to take her antihypertensive regimen. Yesterday she had a similar episode where her blood pressure dropped into the 70s, came to the emergency department, and was admitted overnight for further evaluation. This morning she feels much better, notes that she went has weakness and inability to walk and presyncope when her blood pressure drops but otherwise has had no neurologic deficits or chest pain. [facility] History I have reviewed the patient's past medical history: Yes Medical History: Reports:: Anxiety, Arrhythmia, Atrial Fibrillation, Depression, Diabetes Mellitus Type 2, Gastroesophageal Reflux Disease(GERD), Hyperlipidemia, Hypertension Denies:: Cancer, Diabetes Mellitus Type 1, Internal Pacemaker, Lung Disease, MRSA, Seizures *Have you ever received a pneumonia vaccine?: Yes *Have you received a flu vaccine this season?: Yes Other Medical History: Reports: Thyroid Disease Laterality Cases: Bilateral: Arthroscopy Knee, Arthroscopy Shoulder Other Surgeries: Yes: Appendectomy, Cholecystectomy, Hysterectomy-Total, Other. No: Pacemaker Amputation: No Fractures: No - *Social History Last grade of school completed: High school graduate Smoking Status: Never smoker Alcohol Intake: never *Occupational Status:: retired Housing: house Household Members: spouse *Travel in the last 8 weeks: None - Psychiatric History Pschychiatric History:: Reports:: Anxiety, Depression Family Hx:: Unable to obtain Review of Systems - Review of Systems Review of systems:: pertinent systems reviewed and negative unless documented below - *Neurologic Denies localized weakness, Denies headache(s), Denies numbness Exam Vital signs and Labs for Last 24 Hours: Temp Pulse Resp BP Pulse Ox 98.4 F 96 H 20 165/65 H 97 06/20/21 07:40 06/20/21 07:40 06/20/21 07:40 06/20/21 07:40 06/20/21 07:40 Laboratory Results - last 24 hr 06/19/21 17:15: WBC 5.3, RBC 3.94 L, Hgb 10.7 L, Hct 34.1 L, MCV 86.6, MCH 27.1, MCHC 31.3 L, RDW 16.4, Plt Count 253, MPV 8.0, Neut % (Auto) 66.1, Lymph % (Auto) 24.8, [place] % (Auto) 6.5, Eos % (Auto) 2.0, Baso % (Auto) 0.6, Neut # (Auto) 3.5, Lymph # (Auto) 1.3, [place] # (Auto) 0.4, Eos # (Auto) 0.1, Baso # (Auto) 0.0 06/19/21 17:15: Sodium 132 L, Potassium 4.6, Chloride 98, Carbon Dioxide 24, Anion Gap 14.6, BUN 32 H, Creatinine 1.20 H, Estimated Creat Clear 45, Estimated GFR 44 L, Est GFR ( Amer) 53 L, Glucose 125 H, Calcium 9.0, Total Bilirubin 0.4, AST 37 H, ALT 21, Alkaline Phosphatase 81, Total Protein 7.9, Albumin 4.6, Globulin 3.3 H, Albumin/Globulin Ratio 1.4 06/19/21 17:15: Troponin I < 0.01 06/19/21 18:59: SARS-CoV-2 (PCR) Not detected, Influenza A Untype (PCR) Not detected, Influenza Type B (PCR) Not detected 06/19/21 21:19: POC Glucose 93 06/20/21 06:48: POC Glucose 120 H 06/20/21 06:52: Sodium 139, Potassium 4.1, Chloride 107, Carbon Dioxide 22, Anion Gap 14.1, BUN 24 H, Creatinine 0.80 D, Estimated Creat Clear 56, Estimated GFR 70, Est GFR ( Amer) 85 D, Glucose 116 H, Calcium 8.8 I & O for Last 24 hours: Intake & Output 06/17/21 06/18/21 06/19/21 06/20/21 11:59 11:59 11:59 11:59 Weight 155 lb 3.287 oz - Constitutional no acute distress - *Routine HEENT Exam Head: Present: normocephalic Eye: Present: EOMI, PERRL ENT: Present: mucous membranes moist - *Routine Neck Exam Present: supple. Absent: lymphadenopathy - *Routine Respiratory Exam Pre
--- NOTE | 2021-06-20 09:54 | PC.NURSE ---
0930 Discharge education provided to pt and her spouse, V/U. Pt is aware that she is to stop hydralazine, record BP daily and take journal to appointment scheduled for 06/25/21 at 1430.
--- NOTE | 2021-06-21 13:46 | CARE MANAGER ---
Spoke with patient. States she had diarrhea yesterday after she got home and also today. Yesterday she also had a bad headache. This morning when she took her blood pressure with her automatic blood pressure cuff it was 160/141 after sitting quietly for 10 minutes. She denies any neurological symptoms, headache, numbness or tingling, etc. She is not taking her Hydralazine as instructed. She will take her blood pressures with her to her appt on Friday with Dr. Anderson as well as her blood pressure cuff in order to verify the cuff is reading correctly. Denied any other questions or concerns. ZELDA Willett
== END 2021-06-20 09:35 | disposition home or self-care (01) ==
LOC: ER 18:58 → 2ND 20:14 → OB 20:14
PROVIDERS: Admitting Provider Emergency Medicine; Emergency Provider Emergency Medicine; PCP Internal Medicine Adolescent Medicine; Visit Provider Internal Medicine Adolescent Medicine
DX: I95.1 Orthostatic hypotension (principal); R55 Syncope and collapse; E11.9 Type 2 diabetes mellitus without complications; I48.91 Unspecified atrial fibrillation; K21.9 Gastro-esophageal reflux disease without esophagitis; E78.5 Hyperlipidemia, unspecified; I10 Essential (primary) hypertension; Z79.899 Other long term (current) drug therapy; Z79.84 Long term (current) use of oral hypoglycemic drugs; Z20.822 Contact with and (suspected) exposure to COVID-19
CPT/HCPCS: G0378; G0379; 80048; 80053; 82962; 84484; 85025; 93005; C9803; U0003; U0005

== ENCOUNTER → 2021-08-21 08:17 | Outpatient (CLI) | payer MEDICARE, BC, SELFPAY ==
--- NOTE | 2021-08-21 08:19 | MR_ITS ---
FINAL REPORT CLINICAL HISTORY: TRAUMATIC BRAIN INJURY, MEMORY LOSS. X6YRS AGO BRAIN INJURY. DIZZINESS. INTERMITTENT EPISODES OF WEAKNESS AND UNABLE TO WALK BY HERSELF [id number]. FINDINGS: Multiplanar MR imaging of the brain was performed without contrast. There is mild age-appropriate atrophy. There are scattered foci of increased T2 signal in the cerebral white matter that have a nonspecific appearance but likely represent moderate chronic ischemic/gliotic changes. There is no evidence of intracranial hemorrhage or mass. No abnormal ventricular dilatation is identified. No abnormal extra-axial fluid collection is seen. 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 No abnormality is seen on the diffusion weighted images. The posterior fossa and brainstem are unremarkable. Normal major vessel vascular flow voids are seen. IMPRESSION: Age-appropriate atrophy and moderate chronic ischemic/gliotic changes. No acute intracranial abnormality. Reviewed, Interpreted and Dictated by Gilberto Olivia III, MD Transcribed by Padmini Gonzalez Authenticated by Gilberto Olivia III, MD on 08/21/2021 10:34:41 AM [facility]
== END ==
PROVIDERS: PCP Internal Medicine Adolescent Medicine; Visit Provider Internal Medicine Adolescent Medicine
DX: S06.9X1S Unspecified intracranial injury with loss of consciousness of 30 minutes or less, sequela (principal); R41.3 Other amnesia
CPT/HCPCS: 70551

== ENCOUNTER → 2021-10-03 13:54 | Outpatient (CLI) | payer MEDICARE, BC, SELFPAY ==
[2021-10-03 15:18] LABS: Basophils % 0.8 % (0.1-2.0); Eosinophils # 0.1 K/mm3 (0.0-0.4); Eosinophils % 1.5 % (0.1-12.0); Hemoglobin 10.7 g/dL (12.2-16.2); Lymphocytes # 1.2 K/mm3 (0.7-4.5); Lymphocytes % 20.7 % (10-50); Mean Corpuscular HGB Conc 32.5 g/dL (31.8-35.4); Mean Corpuscular Hemoglobin 25.4 pg (27.0-31.2); Mean Corpuscular Volume 78.2 fl (81-99); Monocytes # 0.3 K/mm3 (0.1-1.0); Monocytes % 5.3 % (1.7-9.3); Neutrophils % 71.7 % (37.0-80.0); Platelet Count 244 K/mm3 (142-424); Red Blood Count 4.22 M/mm3 (4.20-5.40); Red Cell Distribution Width 16.1 % (11.5-17.5); White Blood Count 5.6 K/mm3 (4.8-10.8)
[2021-10-03 16:03] LABS: Alanine Aminotransferase 17 U/L (12-78); Albumin Level 4.2 g/dl (3.5-5.0); Albumin/Globulin Ratio 1.6 (1.1-1.8); Alkaline Phosphatase 72 U/L (38-126); Anion Gap 15.6 mEq/L (5-15); Aspartate Amino Transferase 27 U/L (14-36); Blood Urea Nitrogen 10 mg/dl (7-17); Calcium 9.3 mg/dl (8.4-10.2); Carbon Dioxide 25 mmol/L (22.0-30.0); Chloride 99 mmol/L (98-107); Estimated Glomerular Filt Rate 54 ml/min (>60); GFR (African American) 66 ML/MIN (>60); Globulin 2.6 g/dL (1.3-3.2); Glucose 142 mg/dl (74-100); Potassium 4.6 mmoL/L (3.5-5.1); Sodium 135 mmol/L (136-145); Total Protein,Serum 6.8 g/dl (6.3-8.2)
[2021-10-03 16:05] LABS: Bilirubin,Total < 0.1 mg/dl (0.2-1.3)
[2021-10-03 16:19] LABS: Adenovirus F 40/41, stool Not Detected (NotDetected); Astrovirus Not Detected (NotDetected); Campylobacter Not Detected (NotDetected); Cryptosporidium Not Detected (NotDetected); Cyclospora Cayetanesis Not Detected (NotDetected); Entamoeba histolytica Not Detected (NotDetected); Enteroaggregative E coli Not Detected (NotDetected); Enteropathogenic E coli Not Detected (NotDetected); Enterotoxigenic E coli Not Detected (NotDetected); Giardia lamblia Not Detected (NotDetected); Norovirus Not Detected (NotDetected); Plesimonas Shigalloides, PCR Not Detected (NotDetected); Rotavirus A Not Detected (NotDetected); Salmonella, PCR Not Detected (NotDetected); Sapovirus Not Detected (NotDetected); Shiga-like toxin E coli Not Detected (NotDetected); Shigella Enterovasive E coli Not Detected (NotDetected); Vibrio Cholerae Not Detected (NotDetected); Vibrio, PCR Not Detected (NotDetected); Yersinia Entercolitica, PCR Not Detected (NotDetected)
[2021-10-04 08:55] LABS: Clostridium Difficile A/B, PCR Detected (NotDetected)
== END ==
PROVIDERS: Nurse Practitioner Family; PCP Internal Medicine Adolescent Medicine; Visit Provider Internal Medicine Gastroenterology
DX: R10.84 Generalized abdominal pain (principal); K58.0 Irritable bowel syndrome with diarrhea; R14.0 Abdominal distension (gaseous); R15.2 Fecal urgency; R15.9 Full incontinence of feces; A04.72 Enterocolitis due to Clostridium difficile, not specified as recurrent
CPT/HCPCS: 36415; 80053; 85025; 87506

== ENCOUNTER 2021-10-14 20:48 | Emergency (ER) | payer MEDICARE, BC, SELFPAY ==
[2021-10-14 20:51] VITALS: BP 153/95; PULSE 89; RESP 18; TEMP 36.9; O2SAT 97
--- NOTE | 2021-10-14 21:26 | HMH.EDNVD ---
ED Disposition Clinical Impression: UTI (urinary tract infection) Qualifiers: Urinary tract infection type: site unspecified Hematuria presence: without hematuria Qualified Code(s): N39.0 - Urinary tract infection, site not specified Disposition: Home, Self-Care Condition on Discharge: Good Instructions: DI for Urinary Tract Infection (UTI) Additional Instructions: call pcp for culture results and see urology Prescriptions: Nitrofurantoin Monohyd/M-Cryst [Macrobid 100 mg Capsule] 100 mg PO BID #14 cap Transmission Status: Pending to [id number] Referrals: Sravan Anderson MD [Primary Care Provider] - Lionel Rai MD [Staff Physician] - - Critical Care Critical Care Time: No Attestation: On 10/14/21, the high probability of a clinically significant, sudden or life threatening deterioration of the following system(s) required my full and direct attention, intervention and personal management. The time I documented below is in addition to time spent performing reported procedures but includes the following listed in this critical care notation. Medical Decision Making - Medical Records Medical records reviewed: Yes: I reviewed the patient's medical records. - Moe Inquiry Pt receiving controlled substance: No Vital Signs: 10/14/21 20:51 10/14/21 23:23 Temperature 98.4 F 98.5 F Temperature Source Oral Oral Pulse Rate 78 Pulse Rate [Right] 89 Respiratory Rate 18 19 Blood Pressure 128/85 Blood Pressure [Right Arm] 153/95 H Blood Pressure Mean [Right Arm] 114 Blood Pressure Source [Right Arm] Automatic Cuff 02 Sat by Pulse Oximetry 97 Oxygen Delivery Method Room Air Room Air - Lab Data Lab results reviewed: Yes: I reviewed the patient's lab results. Lab Results 10/14/21 21:08: WBC 6.3, RBC 4.42, Hgb 10.9 L, Hct 35.2 L, MCV 79.7 L, MCH 24.7 L, MCHC 31.0 L, RDW 16.6, Plt Count 300, MPV 7.9, Neut % (Auto) 59.7, Lymph % (Auto) 29.2, [place] % (Auto) 6.0, Eos % (Auto) 2.3, Baso % (Auto) 2.8 H, Neut # (Auto) 3.8, Lymph # (Auto) 1.9, [place] # (Auto) 0.4, Eos # (Auto) 0.2, Baso # (Auto) 0.2, ESR 21 10/14/21 21:08: Sodium 137, Potassium 4.0, Chloride 100, Carbon Dioxide 26, Anion Gap 15.0, BUN 8, Creatinine 1.00, Estimated Creat Clear 57, Estimated GFR 54 L, Est GFR ( Amer) 66, Glucose 118 H, Calcium 9.1, Total Bilirubin 0.2, AST 33, ALT 19, Alkaline Phosphatase 79, C-Reactive Protein 2.3, Total Protein 7.5, Albumin 4.2, Globulin 3.3 H, Albumin/Globulin Ratio 1.3, Procalcitonin 0.065 10/14/21 21:08: SARS-CoV-2 (PCR) Not detected, Influenza A Untype (PCR) Not detected, Influenza Type B (PCR) Not detected 10/14/21 21:08: Lactate 2.0 10/14/21 23:00: Urine Color Yellow, Urine Appearance Clear, Urine pH 6.0, Ur Specific [place] <= 1.005, Urine Protein Negative, Urine Glucose (UA) Negative, Urine Ketones Negative, Urine Blood Negative, Urine Nitrate Negative, Urine Bilirubin Negative, Urine Urobilinogen 0.2, Ur Leukocyte Esterase 1+ A, Urine WBC 20-50, Ur Squamous Epith Cells 3-5 Result diagrams: 10/14/21 21:08 10/14/21 21:08 Orders (Tests/Meds): ED MEDICATIONS Generic Name Dose Route Start Last Admin Trade Name Freq PRN Reason Stop Dose Admin Sodium Chloride 1,000 mls @ 999 mls/hr 10/14/21 21:30 10/14/21 21:31 Sod Chlor 0.9% 1000ml Bag IV 10/14/21 22:30 999 mls/hr .Q1H1M JG Administration Ertapenem 1 gm/ Sodium 50 mls @ 100 mls/hr 10/14/21 23:30 10/14/21 23:23 Chloride IV 10/28/21 23:29 100 mls/hr Q24H JG Administration Discontinued Medications Generic Name Dose Route Start Last Admin Trade Name Freq PRN Reason Stop Dose Admin Iopamidol 75 ml 10/14/21 22:00 10/14/21 22:01 Iopamidol-370 (76%);100ml Bottle IV 10/14/21 22:01 75 ml ONCE ONE Administration Ondansetron HCl 4 mg 10/14/21 21:30 10/14/21 21:31 Ondansetron 4mg/2ml Vial IV 10/14/21 21:31 4 mg ONCE ONE Administration Sodium Chloride 10 ml 10/14/21 22:00 10/14/21 22:01 Sod
--- NOTE | 2021-10-14 21:28 | CT_ITS ---
PROCEDURE INFORMATION: Exam: CT Abdomen And Pelvis With Contrast Exam date and time: 10/14/2021 9:47 PM Age: 75 years old Clinical indication: Abdominal pain; Generalized; Additional info: Abd pain, low back pain TECHNIQUE: Imaging protocol: Computed tomography of the abdomen and pelvis with contrast. Radiation optimization: All CT scans at this facility use at least one of these dose optimization techniques: automated exposure control; mA and/or kV adjustment per patient size (includes targeted exams where dose is matched to clinical indication); or iterative reconstruction. Contrast material: ISOVUE; Contrast volume: 75 ml; Contrast route: IV; COMPARISON: ABDPELW/O CT ABD PELVIS W/O CONTRAST 09/08/2016 12:27 AM FINDINGS: Liver: Cirrhosis. Gallbladder and bile ducts: Cholecystectomy. Pancreas: Normal. No ductal dilation. Spleen: Normal. No splenomegaly. Adrenal glands: Normal. No mass. Kidneys and ureters: Normal. No hydronephrosis. Stomach and bowel: Mild constipation. No colitis. No small bowel obstruction Appendix: Appendix not clearly seen but no secondary signs of appendicitis. Intraperitoneal space: Unremarkable. No free air. No significant fluid collection. Vasculature: Arthrosclerotic calcifications in the aorta without aneurysm. Lymph nodes: Unremarkable. No enlarged lymph nodes. Urinary bladder: Mild urinary bladder wall thickening. Reproductive: Hysterectomy. Bones/joints: Posterior lumbar fusion from L3 through L5. Soft tissues: Unremarkable. IMPRESSION: No acute intra-abdominal or intrapelvic abnormality appreciated. Nonemergent findings as above.
[2021-10-14 21:33] LABS: Coronavirus 19, PCR Not Detected (NotDetected); Influenza A, PCR Not Detected (NotDetected); Influenza B, PCR Not Detected (NotDetected)
[2021-10-14 21:37] LABS: Basophils # 0.2 K/mm3 (0-0.2); Basophils % 2.8 % (0.1-2.0); Eosinophils # 0.2 K/mm3 (0.0-0.4); Eosinophils % 2.3 % (0.1-12.0); Hematocrit 35.2 % (37.0-47.0); Hemoglobin 10.9 g/dL (12.2-16.2); Lymphocytes # 1.9 K/mm3 (0.7-4.5); Lymphocytes % 29.2 % (10-50); Mean Corpuscular Hemoglobin 24.7 pg (27.0-31.2); Mean Corpuscular Volume 79.7 fl (81-99); Mean Platelet Volume 7.9 fl (7.4-10.4); Monocytes # 0.4 K/mm3 (0.1-1.0); Neutrophils # 3.8 K/mm3 (1.8-7.8); Neutrophils % 59.7 % (37.0-80.0); Platelet Count 300 K/mm3 (142-424); Red Blood Count 4.42 M/mm3 (4.20-5.40); Red Cell Distribution Width 16.6 % (11.5-17.5); White Blood Count 6.3 K/mm3 (4.8-10.8)
[2021-10-14 21:42] LABS: Alanine Aminotransferase 19 U/L (12-78); Albumin Level 4.2 g/dl (3.5-5.0); Albumin/Globulin Ratio 1.3 (1.1-1.8); Alkaline Phosphatase 79 U/L (38-126); Aspartate Amino Transferase 33 U/L (14-36); Bilirubin,Total 0.2 mg/dl (0.2-1.3); Blood Urea Nitrogen 8 mg/dl (7-17); Calcium 9.1 mg/dl (8.4-10.2); Carbon Dioxide 26 mmol/L (22.0-30.0); Chloride 100 mmol/L (98-107); Creatinine Clearance Estimated 57 mL/min (50-200); Estimated Glomerular Filt Rate 54 ml/min (>60); GFR (African American) 66 ML/MIN (>60); Globulin 3.3 g/dL (1.3-3.2); Glucose 118 mg/dl (74-100); Sodium 137 mmol/L (136-145); Total Protein,Serum 7.5 g/dl (6.3-8.2)
[2021-10-14 21:47] LABS: C-Reactive Protein 2.3 mg/L (0-4)
[2021-10-14 22:01] LABS: Procalcitonin 0.065 ng/mL (0.0-2.0)
[2021-10-14 22:05] LABS: Erythrocyte Sedimentation Rate 21 mm/hr (0-30)
[2021-10-14 23:03] LABS: Microscopic, Urine URINE MICROSCOPIC (MICROSCOPIC)
[2021-10-14 23:14] LABS: Appearance,Urine CLEAR (Clear); Bilirubin,Urine Negative (Negative); Blood, Urine Negative (Negative); Color,Urine YELLOW (Yellow); Glucose,Urine (UA) Negative (Negative); Ketones,Urine Negative (Negative); Leukocyte Esterase,Urine 1+ (Negative); Nitrate,Urine Negative (Negative); Protein,Urine Negative (Negative); Specific Gravity, Urine <= 1.005 (1.005-1.030); Urobilinogen,Urine 0.2 EU/dl (0.2)
[2021-10-14 23:18] LABS: WBC,Urine 20-50 #/hpf (0-3)
[2021-10-14 23:23] VITALS: BP 128/85; PULSE 78; RESP 19; TEMP 36.9; O2SAT 97
== END 2021-10-15 00:03 | disposition home or self-care (01) ==
PROVIDERS: Emergency Provider Emergency Medicine; PCP Internal Medicine Adolescent Medicine
DX: N39.0 Urinary tract infection, site not specified (principal); B96.29 Other Escherichia coli [E. coli] as the cause of diseases classified elsewhere; Z79.899 Other long term (current) drug therapy; Z88.6 Allergy status to analgesic agent; Z88.8 Allergy status to other drugs, medicaments and biological substances
CPT/HCPCS: 74177; 80053; 81001; 83605; 84145; 85025; 85651; 86140; 87086; 87088; 87186; 96365; 96375; 99284; C9803; J1335; J2405; Q9967; U0003; U0005

== ENCOUNTER 2021-10-31 17:16 | Emergency (ER) | payer MEDICARE, BC, SELFPAY ==
[2021-10-31] VITALS (9 sets, daily range): BP systolic 102–212; BP diastolic 69–78; PULSE 75–92; RESP 16–18; TEMP 36.8; O2SAT 94–98; BMI 28.9
--- NOTE | 2021-10-31 17:26 | PC.NURSE ---
Pt ambulatory from restroom to ED room 10 without complications. July, RN at BS to triage patient. Spouse at BS
--- NOTE | 2021-10-31 17:26 | PC.NURSE ---
pt ambulatory to restroom without complications from ED waiting room. Spouse with patient.
--- NOTE | 2021-10-31 17:28 | PC.NURSE ---
UA sent to lab
[2021-10-31 17:37] LABS: Microscopic, Urine URINE MICROSCOPIC (MICROSCOPIC)
[2021-10-31 17:41] LABS: Appearance,Urine CLEAR (Clear); Bilirubin,Urine Negative (Negative); Blood, Urine Negative (Negative); Color,Urine YELLOW (Yellow); Glucose,Urine (UA) Negative (Negative); Ketones,Urine Negative (Negative); Leukocyte Esterase,Urine TRACE (Negative); Nitrate,Urine Negative (Negative); Protein,Urine Negative (Negative); Urobilinogen,Urine 0.2 EU/dl (0.2)
--- NOTE | 2021-10-31 18:04 | XR_ITS ---
PROCEDURE INFORMATION: Exam: XR Chest Exam date and time: 10/31/2021 6:05 PM Age: 75 years old Clinical indication: Patient HX: Fever, possible covid TECHNIQUE: Imaging protocol: Radiologic exam of the chest. Views: 2 views. COMPARISON: CR XR CHEST PORTABLE 04/23/2021 1:08 AM FINDINGS: Lungs: Stigmata of old granulomatous disease. Pleural spaces: Unremarkable. No pleural effusion. No pneumothorax. Heart/Mediastinum: Unremarkable. No cardiomegaly. Vasculature: Vascular calcifications. Bones/joints: Postsurgical changes of the left shoulder. Organs: Cholecystectomy clips. IMPRESSION: No acute findings. Please note that this does not exclude COVID-19 infection.
[2021-10-31 18:06] LABS: Bacteria,Urine Trace /lpf; Squamous Epithelial Cell,Urine Occasional #/hpf (0-5)
[2021-10-31 18:10] LABS: Coronavirus 19, PCR Not Detected (NotDetected); Influenza A, PCR Not Detected (NotDetected); Influenza B, PCR Not Detected (NotDetected)
--- NOTE | 2021-10-31 18:12 | PC.NURSE ---
pt to radiology via stretcher
[2021-10-31 18:14] LABS: Basophils # 0.1 K/mm3 (0-0.2); Basophils % 1.3 % (0.1-2.0); Eosinophils # 0.1 K/mm3 (0.0-0.4); Hematocrit 35.4 % (37.0-47.0); Hemoglobin 10.8 g/dL (12.2-16.2); Lymphocytes # 1.5 K/mm3 (0.7-4.5); Mean Corpuscular HGB Conc 30.5 g/dL (31.8-35.4); Mean Corpuscular Hemoglobin 25.2 pg (27.0-31.2); Mean Corpuscular Volume 82.6 fl (81-99); Monocytes # 0.4 K/mm3 (0.1-1.0); Monocytes % 6.7 % (1.7-9.3); Neutrophils # 3.5 K/mm3 (1.8-7.8); Platelet Count 271 K/mm3 (142-424); Red Blood Count 4.28 M/mm3 (4.20-5.40); White Blood Count 5.6 K/mm3 (4.8-10.8)
--- NOTE | 2021-10-31 18:26 | PC.NURSE ---
pt returned from radiology
[2021-10-31 18:29] LABS: Alanine Aminotransferase 23 U/L (12-78); Albumin Level 4.2 g/dl (3.5-5.0); Albumin/Globulin Ratio 1.3 (1.1-1.8); Alkaline Phosphatase 72 U/L (38-126); Anion Gap 15.3 mEq/L (5-15); Aspartate Amino Transferase 42 U/L (14-36); Bilirubin,Total 0.4 mg/dl (0.2-1.3); Blood Urea Nitrogen 11 mg/dl (7-17); Calcium 9.6 mg/dl (8.4-10.2); Carbon Dioxide 24 mmol/L (22.0-30.0); Chloride 99 mmol/L (98-107); Creatinine Clearance Estimated 55 mL/min (50-200); Estimated Glomerular Filt Rate 54 ml/min (>60); GFR (African American) 66 ML/MIN (>60); Globulin 3.2 g/dL (1.3-3.2); Glucose 112 mg/dl (74-100); Potassium 4.3 mmoL/L (3.5-5.1); Sodium 134 mmol/L (136-145); Total Protein,Serum 7.4 g/dl (6.3-8.2)
--- NOTE | 2021-10-31 18:38 | PC.NURSE ---
rounded on patient; she reports she doesn't need anything and is aware that we are waiting on imaging scans to come back.
--- NOTE | 2021-10-31 19:00 | HMH.EDGENADL ---
ED Disposition Condition on Discharge: Good - Critical Care Critical Care Time: No <Devan Baker - Last Filed: 10/31/21 20:15> <Emanuel White - Last Filed: 10/31/21 22:37> Clinical Impression: Fever Qualifiers: Fever type: unspecified Qualified Code(s): R50.9 - Fever, unspecified Back pain Qualifiers: Back pain location: back pain in unspecified location Chronicity: acute Back pain laterality: midline Qualified Code(s): M54.9 - Dorsalgia, unspecified Disposition: Home, Self-Care Instructions: DI for Acute Pain -- Adult Additional Instructions: fluids and call pcp for culture results Prescriptions: levoFLOXacin [Levaquin 500mg tab] 500 mg PO DAILY #7 tab Transmission Status: Pending to [id number] Referrals: Sravan Anderson MD [Primary Care Provider] - Attestation: On 10/31/21, the high probability of a clinically significant, sudden or life threatening deterioration of the following system(s) required my full and direct attention, intervention and personal management. The time I documented below is in addition to time spent performing reported procedures but includes the following listed in this critical care notation. Medical Decision Making - Medical Records Medical records reviewed: Yes: I reviewed the patient's medical records. MR Comment: Reviewed emergency department note from 10/14/2021 visit for abdominal pain and fevers. Treated with Macrodantin. Urine culture positive for E. coli, sensitive to Macrodantin. CT scan abdomen was unremarkable. - Moe Inquiry Pt receiving controlled substance: No - Lab Data Result diagrams: 10/31/21 17:49 10/31/21 17:49 - Radiology Data #1 Image(s): Chest Image Reviewed: Yes I have reviewed radiologist's interpretation <Devan Baker - Last Filed: 10/31/21 20:15> - Lab Data Lab results reviewed: Yes: I reviewed the patient's lab results. Result diagrams: 10/31/21 17:49 10/31/21 17:49 - CT Data CT Scan: C-Spine, T-Spine, L-Spine Time Received: 21:[address] Reviewed: Yes: I have viewed the radiologist's interpretation Preliminary Findings: Abnormal (no discitis ) <Emanuel White - Last Filed: 10/31/21 22:37> Vital Signs: 10/31/21 17:19 10/31/21 18:30 10/31/21 19:00 Temperature 98.3 F Temperature Source Oral Pulse Rate 75 89 Pulse Rate [Left Radial] 92 H Respiratory Rate 16 Blood Pressure Blood Pressure [Right Arm] 102/78 L Blood Pressure Mean Blood Pressure Mean [Right Arm] 86 Blood Pressure Source [Right Arm] Automatic Cuff Blood Pressure Position [Right Arm] Sitting 02 Sat by Pulse Oximetry 98 96 95 Oxygen Delivery Method Room Air 10/31/21 20:45 10/31/21 21:00 10/31/21 21:06 Temperature Temperature Source Pulse Rate 83 Pulse Rate [Left Radial] Respiratory Rate Blood Pressure 208/78 H 211/70 H 197/78 H Blood Pressure [Right Arm] Blood Pressure Mean 95 102 Blood Pressure Mean [Right Arm] Blood Pressure Source [Right Arm] Blood Pressure Position [Right Arm] 02 Sat by Pulse Oximetry 95 Oxygen Delivery Method 10/31/21 21:31 10/31/21 22:01 Temperature Temperature Source Pulse Rate 78 76 Pulse Rate [Left Radial] Respiratory Rate Blood Pressure 207/74 H 212/69 H Blood Pressure [Right Arm] Blood Pressure Mean Blood Pressure Mean [Right Arm] Blood Pressure Source [Right Arm] Blood Pressure Position [Right Arm] 02 Sat by Pulse Oximetry 94 L 94 L Oxygen Delivery Method Room Air Room Air - Lab Data Lab Results 10/31/21 17:28: Urine Color Yellow, Urine Appearance Clear, Urine pH 6.0, Ur Specific [place] 1.010, Urine Protein Negative, Urine Glucose (UA) Negative, Urine Ketones Negative, Urine Blood Negative, Urine Nitrate Negative, Urine Bilirubin Negative, Urine Urobilinogen 0.2, Ur Leukocyte Esterase Trace, Urine RBC None, Urine WBC 3-5, Ur Squamous Epith Cells Occasional, Urine Bacteria Trace 10/31/21 17:49: WBC 5.6,
[2021-10-31 19:18] LABS: Adenovirus,PCR Not Detected (NotDetected); Bordetella Pertussis Not Detected (NotDetected); Chlamydophila Pneumoniae, PCR Not Detected (NotDetected); Coronavirus 19, PCR Not Detected (NotDetected); Coronavirus 229E Not Detected (NotDetected); Coronavirus NL63 Not Detected (NotDetected); Coronavirus OC43 Not Detected (NotDetected); Coronovirus HKU1,PCR Not Detected (NotDetected); Human Metapneumovirus Not Detected (NotDetected); Influenza A, PCR Not Detected (NotDetected); Influenza AH1, 2009 Not Detected (NotDetected); Influenza AH1, PCR Not Detected (NotDetected); Influenza AH3,PCR Not Detected (NotDetected); Influenza B, PCR Not Detected (NotDetected); Mycoplasma Pneumoniae, PCR Not Detected (NotDetected); Parainfluenza 1, PCR Not Detected (NotDetected); Parainfluenza 2, PCR Not Detected (NotDetected); Parainfluenza 3, PCR Not Detected (NotDetected); Parainfluenza 4, PCR Not Detected (NotDetected); Respiratory Syncytial Virus Not Detected (NotDetected); Rhinovirus/Enterovirus Not Detected (NotDetected)
--- NOTE | 2021-10-31 19:30 | CT_ITS ---
PROCEDURE INFORMATION: Exam: CT Thoracic Spine With Contrast Exam date and time: 10/31/2021 7:58 PM Age: 75 years old Clinical indication: Pain in thoracic spine; Additional info: Fevers to 103, back pain, h/o back surgs with infx TECHNIQUE: Imaging protocol: Computed tomography of the thoracic spine with contrast. Radiation optimization: All CT scans at this facility use at least one of these dose optimization techniques: automated exposure control; mA and/or kV adjustment per patient size (includes targeted exams where dose is matched to clinical indication); or iterative reconstruction. Contrast material: ISOVUE; Contrast volume: 50 ml; Contrast route: IV; COMPARISON: CT CERVICAL SPINE W CON 10/31/2021 7:52 PM FINDINGS: Bones/joints: These images reveal no evidence of acute displaced cortical disruption or spondylolisthesis. Diffuse bone demineralization. Discs/Spinal canal/Neural foramina: Diffuse degenerative spondylosis, rotoscoliosis and facet arthropathy. No severe central or foraminal stenosis. Soft tissues: Unremarkable. Lungs: Scarring and dependent atelectasis within the lungs. 1 cm calcified granuloma within the inferior aspect of the right upper lobe laterally. Heart: Calcifications within thoracic aorta, carotid and coronary arteries. Mediastinum: Calcified granulomas are identified in the mediastinum and hilar structures. Sliding hiatal hernia. Liver: Punctate calcified granulomas within the spleen and liver. Liver is diffusely hypoattenuating. Pancreas: Atrophy of the otherwise unremarkable pancreas. IMPRESSION: 1. These images reveal no evidence of acute displaced cortical disruption or spondylolisthesis. 2. Diffuse degenerative spondylosis, rotoscoliosis and facet arthropathy. 3. Osteopenia/osteoporosis. 4. Atherosclerotic vascular disease. 5. Sliding hiatal hernia. 6. Hepatic steatosis.
--- NOTE | 2021-10-31 19:30 | CT_ITS ---
PROCEDURE INFORMATION: Exam: CT Lumbar Spine With Contrast Exam date and time: 10/31/2021 8:04 PM Age: 75 years old Clinical indication: Low back pain; Prior surgery; Additional info: Fevers to 103, back pain, h/o back surgs with infx TECHNIQUE: Imaging protocol: Computed tomography of the lumbar spine with contrast. Radiation optimization: All CT scans at this facility use at least one of these dose optimization techniques: automated exposure control; mA and/or kV adjustment per patient size (includes targeted exams where dose is matched to clinical indication); or iterative reconstruction. Contrast material: ISOVUE; Contrast volume: 50 ml; Contrast route: IV; COMPARISON: CT THORACIC SPINE W CON 10/31/2021 7:58 PM FINDINGS: Bones/joints: Partial removal of the posterior elements with bilateral pedicle screws and vertical fixation rods at L3 and L4. Osteophytosis and eburnation of the sacroiliac and femoroacetabular articulating surfaces. Vacuum phenomenon of the sacroiliac joints bilaterally. Discs/Spinal canal/Neural foramina: Intervertebral cage devices at L3-L4 and L4-L5. Diffuse degenerative spondylosis and facet arthropathy. Degenerative posterolateral disc and osteophyte complex and facet arthropathy result in multilevel foraminal stenosis within the lumbar spine. Stomach and bowel: Reactive loops of small bowel with air-fluid levels but no pathologic distention may reflect gastroenteritis or small-bowel ileus. Mild diverticulosis of the sigmoid colon. No evidence of diverticulitis. Reproductive: Uterus is surgically absent. Vasculature: Calcifications within the aorta and its branches. Soft tissues: Mild atrophy of the otherwise unremarkable pancreas. Other findings: Mild rotoscoliosis. IMPRESSION: 1. No evidence of acute fracture or spondylolisthesis is identified on CT of the lumbar spine. 2. Reactive loops of small bowel with air-fluid levels but no pathologic distention may reflect gastroenteritis or small-bowel ileus. 3. Prior hysterectomy. 4. Mild diverticulosis of the sigmoid colon. No evidence of diverticulitis. 5. Partial removal of the posterior elements with bilateral pedicle screws and vertical fixation rods at L3 and L4. 6. Intervertebral cage devices at L3-L4 and L4-L5. 7. Mild rotoscoliosis. 8. Degenerative posterolateral disc and osteophyte complex and facet arthropathy result in multilevel foraminal stenosis within the lumbar spine. 9. 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 10. Atherosclerotic vascular disease.
--- NOTE | 2021-10-31 19:30 | CT_ITS ---
PROCEDURE INFORMATION: Exam: CT Cervical Spine With Contrast Exam date and time: 10/31/2021 7:52 PM Age: 75 years old Clinical indication: Neck pain; Additional info: Fevers to 103, back pain, h/o back surgs with infx TECHNIQUE: Imaging protocol: Computed tomography of the cervical spine with contrast. Radiation optimization: All CT scans at this facility use at least one of these dose optimization techniques: automated exposure control; mA and/or kV adjustment per patient size (includes targeted exams where dose is matched to clinical indication); or iterative reconstruction. Contrast material: ISOVUE; Contrast volume: 50 ml; Contrast route: IV; COMPARISON: CT CERVICAL SPINE WO CON 10/07/2019 6:37 PM FINDINGS: Bones/joints: No acute fracture. Normal alignment. Discs/Spinal canal/Neural foramina: No significant disc protrusion. No severe spinal canal stenosis. No significant neural foraminal narrowing. Lungs: Lung apices are normal. Mediastinal space: Stigmata of old granulomatous disease. Soft tissues: Unremarkable. IMPRESSION: No acute findings.
--- NOTE | 2021-10-31 19:38 | PC.NURSE ---
Pt given warm blanket for comfort and made aware she would be going for CT scans.
[2021-10-31 19:48] LABS: C-Reactive Protein 1.3 mg/L (0-4)
[2021-10-31 20:01] LABS: Procalcitonin 0.057 ng/mL (0.0-2.0)
[2021-10-31 20:02] LABS: Lactic Acid 2.9 mmol/L (0.7-2.1)
[2021-10-31 20:02] LABS: Erythrocyte Sedimentation Rate 14 mm/hr (0-30)
--- NOTE | 2021-10-31 22:08 | PC.NURSE ---
at updating on POC
--- NOTE | 2021-10-31 22:45 | PC.NURSE ---
MD notified of patients hypertensive blood pressure upon discharge. Per MD, patient notified to take her nightly blood pressure medication after discharge, which she has yet to take.
[2021-10-31 23:24] LABS: Reflex Lactic Add Lactic Reflex
== END 2021-10-31 22:51 | disposition home or self-care (01) ==
PROVIDERS: Emergency Provider Emergency Medicine; PCP Internal Medicine Adolescent Medicine
DX: R50.9 Fever, unspecified (principal); M54.9 Dorsalgia, unspecified
CPT/HCPCS: 71046; 72126; 72129; 72132; 80053; 81001; 83605; 84145; 85025; 85651; 86140; 87040; 87077; 87086; 87186; 87581; 87632; 87798; 96365; 96375; 99284; C9803; J0696; Q9967; U0003; U0005

== ENCOUNTER 2022-04-08 16:00 | Emergency (ER) | payer MEDICARE, BC, SELFPAY ==
[2022-04-08 17:40] VITALS: BP 160/95; PULSE 87; RESP 19; TEMP 36.7; O2SAT 97; BMI 30.9
--- NOTE | 2022-04-08 18:40 | EXP.UTC ---
Discharge Plan Disposition Patient Disposition: Still a Patient Condition: Fair Prescriptions Prescriptions: No Action levothyroxine 100 MCG Tablet 88 mcg PO DAILY pravastatin 80 MG Tablet 80 mg PO HS losartan 100 MG Tablet 100 mg PO DAILY memantine 10 MG Tablet 10 mg PO BID donepezil 5 MG Tab.Rapdis 5 mg PO DAILY sitagliptin phos-metformin [Janumet] 0 Tablet 1 tab PO BID loperamide 2 MG capsule 2 mg PO Q2HP PRN (Reason: Diarrhea) famotidine 20 MG tablet 20 mg PO BID simethicone 80 MG tablet,chewable 80 mg PO DAILYP PRN (Reason: Gas Pain And Discomfort) sodium chloride 44 ML aerosol,spray 44 ml NS DAILYP PRN (Reason: Congestion) semaglutide 1 MG/0.75 ML pen injector 5 mg SQ WEEKLY cyanocobalamin (vitamin B-12) 1,000 MCG/ML solution 1,000 mcg IM WEEKLY escitalopram oxalate 10 MG tablet 20 mg PO DAILY quetiapine 200 MG tablet 200 mg PO HS levofloxacin 500 MG tablet 500 mg PO DAILY Qty: 7 0RF chlordiazepoxide-clidinium 1 EACH capsule 1 each PO ACHS nitrofurantoin monohyd/m-cryst 100 MG capsule 100 mg PO BID Qty: 14 0RF Referrals Follow up/Referrals: Sravan Anderson MD [Primary Care Provider] - See instructions Discharge ED Provider: Yuki Meadows [facility] [place] General Stated complaint: soa, cough, weakness Mode of Arrival: Ambulatory Source of Information: Patient Limitations: No Limitations Time Seen by Provider: 04/08/22 17:45 Description of Symptoms (Recalled from Triage Doc. by RN): PATIENT STATES SHE RECENTLY HAD THE FLU AND NOW C/O WEAKNESS, DIFFICULTY BREATHING, FEVER AND SORE THROAT HEENT Symptoms (Recalled from RN notes): Yes Resp Symptoms (Recalled from RN notes): No Skin Symptoms (Recalled from RN notes): No MS Symptoms (Recalled from RN notes): No Functional Status (Recalled from RN notes): WNL History of Present Illness Provider Complaint: Patient states that she recently had the flu States that she called her some medication States that since then she has continued to get worse States that she feels weak as water states that she has had several near syncopal episodes and had to yell for someone to help her or she felt like she would have passed out States that she is afraid to walk without someone holding on to her due to her feeling so weak and also felt Short of breath on and off and states that she cannot even get out of the chair on her own without help and is staggering when she walks Concerned that she is so weak and not feeling well he brought her in Related Data Home Medications Medication Instructions Recorded Confirmed donepezil 5 mg disintegrating 5 mg PO DAILY Memory 06/26/18 10/14/21 tablet levothyroxine 100 mcg tablet 88 mcg PO DAILY thyroid 06/26/18 10/14/21 losartan 100 mg tablet 100 mg PO DAILY High blood pressure 06/26/18 10/14/21 memantine 10 mg tablet 10 mg PO BID Memory 06/26/18 10/14/21 pravastatin 80 mg tablet 80 mg PO HS Cholesterol 06/26/18 10/14/21 sitagliptin phosphate 50 1 tab PO BID Diabetes 06/26/18 10/14/21 mg-metformin 1,000 mg tablet (Adrienumebartolome) chlordiazepoxide-clidinium 5 1 each PO ACHS IBS 10/14/18 10/14/21 mg-2.5 mg capsule cyanocobalamin (vitamin B-12) 1,000 mcg IM WEEKLY Supplementation 03/10/20 10/14/21 1,000 mcg/mL injection solution famotidine 20 mg tablet 20 mg PO BID heart burn 03/10/20 10/14/21 loperamide 2 mg capsule 2 mg PO Q2HP PRN Diarrhea 03/10/20 10/14/21 semaglutide 1 mg/dose (2 mg/1.5 5 mg SQ WEEKLY Diabetes 03/10/20 10/14/21 mL) subcutaneous pen injector simethicone 80 mg chewable tablet 80 mg PO DAILYP PRN Gas Pain And 03/10/20 10/14/21 Discomfort sodium chloride 0.65 % nasal spray 44 ml NS DAILYP PRN Congestion 03/10/20 10/14/21 aerosol escitalopram oxalate 10 mg tablet 20 mg PO DAILY Depression 04/23/21 10/14/21 quetiapine 200 mg tablet 200 mg PO HS sleep 04/23/21 10/14/21 Previous Rx's Medication Ins
--- NOTE | 2022-04-08 18:48 | XR_ITS ---
PROCEDURE INFORMATION: Exam: XR Chest Exam date and time: 04/08/2022 6:51 PM Age: 76 years old Clinical indication: Cough and shortness of breath; Additional info: Cough and SOB TECHNIQUE: Imaging protocol: Radiologic exam of the chest. Views: 2 views. COMPARISON: CR XR CHEST 2V 10/31/2021 6:05 PM FINDINGS: Lungs: Calcified granuloma within the right midlung zone. Pleural spaces: Unremarkable. No pleural effusion. No pneumothorax. Heart/Mediastinum: Normal. Bones/joints: Partially visualized lumbar spine fusion hardware. Soft tissues: Soft tissue anchors projecting over the left shoulder from prior rotator cuff repair. Organs: Cholecystectomy clips in the right upper abdomen. IMPRESSION: No acute cardiopulmonary abnormality.
[2022-04-08 19:16] LABS: UTC Strep Screen (Rapid) Negative (Negative)
[2022-04-08 19:17] LABS: Coronavirus 19, PCR Not Detected (NotDetected); Influenza B, PCR Not Detected (NotDetected)
--- NOTE | 2022-04-08 19:26 | PC.NURSE ---
PATIENT SENT TO ER PER Sandra HEALY APRN FOR FURTHER EVALUATION. REPORT GIVEN TO Todd HDZ RN
--- NOTE | 2022-04-08 19:38 | ECG_ITS ---
APPROVED REPORT Exam: Resting ECG HR:68 bpm ECG Measurements Heart Rate 68 AXES NV 158 P 84 QRSd 91 QRS 25 QT 415 T 58 QTc 433 Conclusion SINUS RHYTHM NORMAL ECG UNCONFIRMED REPORT Electronically signed by : Sravan Anderson MD 04/09/2022 22:19:27
[2022-04-08 20:20] LABS: Influenza A, PCR Detected (NotDetected)
[2022-04-08 20:26] VITALS: BP 199/75; PULSE 71; RESP 16; TEMP 36.6; O2SAT 97; BMI 29.0
[2022-04-08 20:27] LABS: Chloride 93 mmol/L (98-107); Potassium 4.8 mmoL/L (3.5-5.1); Sodium 131 mmol/L (136-145)
[2022-04-08 20:30] LABS: Alanine Aminotransferase 21 U/L (12-78); Albumin Level 4.7 g/dl (3.5-5.0); Albumin/Globulin Ratio 1.6 (1.1-1.8); Alkaline Phosphatase 99 U/L (38-126); Anion Gap 14.8 mEq/L (5-15); Aspartate Amino Transferase 33 U/L (14-36); Bilirubin,Total 0.2 mg/dl (0.2-1.3); Blood Urea Nitrogen 12 mg/dl (7-17); Carbon Dioxide 28 mmol/L (22.0-30.0); Creatinine Clearance Estimated 45 mL/min (50-200); Estimated Glomerular Filt Rate 44 ml/min (>60); GFR (African American) 53 ML/MIN (>60); Total Protein,Serum 7.7 g/dl (6.3-8.2)
--- NOTE | 2022-04-08 20:30 | HMH.EDWEAK ---
Discharge Plan Disposition Patient Disposition: Home, Self-Care Condition: Fair Prescriptions Prescriptions: No Action levothyroxine 100 MCG Tablet 88 mcg PO DAILY pravastatin 80 MG Tablet 80 mg PO HS losartan 100 MG Tablet 100 mg PO DAILY memantine 10 MG Tablet 10 mg PO BID donepezil 5 MG Tab.Rapdis 5 mg PO DAILY sitagliptin phos-metformin [Janumet] 0 Tablet 1 tab PO BID loperamide 2 MG capsule 2 mg PO Q2HP PRN (Reason: Diarrhea) famotidine 20 MG tablet 20 mg PO BID simethicone 80 MG tablet,chewable 80 mg PO DAILYP PRN (Reason: Gas Pain And Discomfort) sodium chloride 44 ML aerosol,spray 44 ml NS DAILYP PRN (Reason: Congestion) semaglutide 1 MG/0.75 ML pen injector 5 mg SQ WEEKLY cyanocobalamin (vitamin B-12) 1,000 MCG/ML solution 1,000 mcg IM WEEKLY escitalopram oxalate 10 MG tablet 20 mg PO DAILY quetiapine 200 MG tablet 200 mg PO HS levofloxacin 500 MG tablet 500 mg PO DAILY Qty: 7 0RF chlordiazepoxide-clidinium 1 EACH capsule 1 each PO ACHS nitrofurantoin monohyd/m-cryst 100 MG capsule 100 mg PO BID Qty: 14 0RF Referrals Follow up/Referrals: Sravan Anderson MD [Primary Care Provider] - See instructions Clinical Impressions Clinical Impression: Influenza A Instructions Patient Instructions: DI for Influenza -- Adult Discharge ED Provider: Emanuel White Weakness HPI General Chief complaint: Weakness Stated complaint: soa, cough, weakness Time Seen by Provider: 04/08/22 17:45 Mode of Arrival: Wheelchair Source of Information: Patient, Spouse and Medical Record Limitations: No Limitations Description of Symptoms (Recalled from ER Triage Doc. by RN): pt states diagnosed with the flu last friday. pt c/o weaknessm SOB and cough. History of Present Illness HPI Narrative: pt with flu sx with sob and cough Complaint: generalized weakness Onset (ago): day(s) Duration: constant Location: generalized Severity: moderate Context: recent illness Associated symptoms: denies other symptoms Related Data Home Medications Medication Instructions Recorded Confirmed donepezil 5 mg disintegrating 5 mg PO DAILY Memory 06/26/18 10/14/21 tablet levothyroxine 100 mcg tablet 88 mcg PO DAILY thyroid 06/26/18 10/14/21 losartan 100 mg tablet 100 mg PO DAILY High blood pressure 06/26/18 10/14/21 memantine 10 mg tablet 10 mg PO BID Memory 06/26/18 10/14/21 pravastatin 80 mg tablet 80 mg PO HS Cholesterol 06/26/18 10/14/21 sitagliptin phosphate 50 1 tab PO BID Diabetes 06/26/18 10/14/21 mg-metformin 1,000 mg tablet (Aprdarryl) chlordiazepoxide-clidinium 5 1 each PO ACHS IBS 10/14/18 10/14/21 mg-2.5 mg capsule cyanocobalamin (vitamin B-12) 1,000 mcg IM WEEKLY Supplementation 03/10/20 10/14/21 1,000 mcg/mL injection solution famotidine 20 mg tablet 20 mg PO BID heart burn 03/10/20 10/14/21 loperamide 2 mg capsule 2 mg PO Q2HP PRN Diarrhea 03/10/20 10/14/21 semaglutide 1 mg/dose (2 mg/1.5 5 mg SQ WEEKLY Diabetes 03/10/20 10/14/21 mL) subcutaneous pen injector simethicone 80 mg chewable tablet 80 mg PO DAILYP PRN Gas Pain And 03/10/20 10/14/21 Discomfort sodium chloride 0.65 % nasal spray 44 ml NS DAILYP PRN Congestion 03/10/20 10/14/21 aerosol escitalopram oxalate 10 mg tablet 20 mg PO DAILY Depression 04/23/21 10/14/21 quetiapine 200 mg tablet 200 mg PO HS sleep 04/23/21 10/14/21 Previous Rx's Medication Instructions Recorded nitrofurantoin 100 mg PO BID #14 caps 10/14/21 monohydrate/macrocrystals 100 mg capsule levofloxacin 500 mg tablet 500 mg PO DAILY #7 tabs 10/31/21 Allergies Allergy/AdvReac Type Severity Reaction Status Date / Time aspirin [ASPIRIN] Allergy Unknown Verified 01/07/21 20:30 hydroxyzine [HYDROXYZINE] Allergy Unknown Verified 01/07/21 20:30 meperidine [From DEMEROL] Allergy Unknown Verified 01/07/21 20:30 rosuvastatin [From CRESTOR] Allergy
[2022-04-08 20:31] LABS: Basophils % 0.6 % (0.1-2.0); Calcium 9.7 mg/dl (8.4-10.2); Eosinophils # 0.1 K/mm3 (0.0-0.4); Eosinophils % 1.8 % (0.1-12.0); Glucose 99 mg/dl (74-100); Hematocrit 32.6 % (37.0-47.0); Hemoglobin 10.5 g/dL (12.2-16.2); Lymphocytes # 2.1 K/mm3 (0.7-4.5); Mean Corpuscular HGB Conc 32.2 g/dL (31.8-35.4); Mean Corpuscular Volume 74.5 fl (81-99); Mean Platelet Volume 8.3 fl (7.4-10.4); Monocytes # 0.3 K/mm3 (0.1-1.0); Monocytes % 5.6 % (1.7-9.3); Neutrophils # 3.6 K/mm3 (1.8-7.8); Neutrophils % 58.1 % (37.0-80.0); Platelet Count 320 K/mm3 (142-424); Red Blood Count 4.38 M/mm3 (4.20-5.40); Red Cell Distribution Width 17.3 % (11.5-17.5); White Blood Count 6.2 K/mm3 (4.8-10.8)
[2022-04-08 20:41] LABS: Lactic Acid 2.2 mmol/L (0.7-2.1)
[2022-04-08 22:18] VITALS: BP 167/78; PULSE 71; RESP 16; TEMP 36.6; O2SAT 97
== END 2022-04-08 22:20 | disposition home or self-care (01) ==
LOC: UTC 18:49 → ER 19:27
PROVIDERS: Nurse Practitioner; Emergency Provider Emergency Medicine; PCP Internal Medicine Adolescent Medicine
DX: J10.1 Influenza due to other identified influenza virus with other respiratory manifestations (principal); R55 Syncope and collapse; R06.02 Shortness of breath; R19.7 Diarrhea, unspecified; Z20.822 Contact with and (suspected) exposure to COVID-19; I10 Essential (primary) hypertension; E11.9 Type 2 diabetes mellitus without complications; E78.5 Hyperlipidemia, unspecified; F41.9 Anxiety disorder, unspecified; Z79.84 Long term (current) use of oral hypoglycemic drugs; Z79.899 Other long term (current) drug therapy; Z88.5 Allergy status to narcotic agent; Z88.6 Allergy status to analgesic agent; Z88.8 Allergy status to other drugs, medicaments and biological substances
CPT/HCPCS: 71046; 80053; 83605; 85025; 87040; 87880; 93005; 96360; 99285; C9803; U0003; U0005

== ENCOUNTER → 2022-05-07 14:28 | Outpatient (CLI) | payer MEDICARE, BC, SELFPAY ==
[2022-05-07 15:10] LABS: Basophils % 0.4 % (0.1-2.0); Eosinophils # 0.1 K/mm3 (0.0-0.4); Eosinophils % 1.2 % (0.1-12.0); Hematocrit 29.7 % (37.0-47.0); Hemoglobin 9.5 g/dL (12.2-16.2); Lymphocytes # 1.6 K/mm3 (0.7-4.5); Lymphocytes % 22.8 % (10-50); Mean Corpuscular Hemoglobin 24.7 pg (27.0-31.2); Mean Corpuscular Volume 77.1 fl (81-99); Mean Platelet Volume 7.8 fl (7.4-10.4); Monocytes # 0.4 K/mm3 (0.1-1.0); Monocytes % 5.7 % (1.7-9.3); Neutrophils # 4.9 K/mm3 (1.8-7.8); Neutrophils % 69.8 % (37.0-80.0); Platelet Count 314 K/mm3 (142-424); Red Blood Count 3.85 M/mm3 (4.20-5.40); Red Cell Distribution Width 18.3 % (11.5-17.5)
[2022-05-07 16:10] LABS: Alanine Aminotransferase 25 U/L (12-78); Albumin Level 4.4 g/dl (3.5-5.0); Albumin/Globulin Ratio 1.5 (1.1-1.8); Alkaline Phosphatase 92 U/L (38-126); Anion Gap 18.6 mEq/L (5-15); Aspartate Amino Transferase 31 U/L (14-36); Bilirubin,Total 0.3 mg/dl (0.2-1.3); Blood Urea Nitrogen 17 mg/dl (7-17); Calcium 9.5 mg/dl (8.4-10.2); Carbon Dioxide 21 mmol/L (22.0-30.0); Chloride 103 mmol/L (98-107); Chol/HDL Ratio 3.3 (1-3.5); Cholesterol 177 mg/dl (140-200); Estimated Glomerular Filt Rate 49 ml/min (>60); GFR (African American) 59 ML/MIN (>60); Globulin 2.9 g/dL (1.3-3.2); Glucose 80 mg/dl (74-100); HDL Cholesterol 54 mg/dl (40-60); Potassium 4.6 mmoL/L (3.5-5.1); Sodium 138 mmol/L (136-145); Total Protein,Serum 7.3 g/dl (6.3-8.2); Triglycerides 150 mg/dl (30-150); VLDL Cholesterol 30 mg/dL (0-40)
[2022-05-07 16:21] LABS: Direct LDL Cholesterol 95.65 mg/dL (100-129)
[2022-05-07 16:41] LABS: Thyroid Stimulating Hormone 0.21 uIU/mL (0.465-4.68)
[2022-05-07 17:09] LABS: Hemoglobin A1C 5.9 % (4.0-6.0)
== END ==
PROVIDERS: PCP Internal Medicine Adolescent Medicine; Visit Provider Internal Medicine Adolescent Medicine
DX: E11.9 Type 2 diabetes mellitus without complications (principal); E03.9 Hypothyroidism, unspecified; E78.5 Hyperlipidemia, unspecified; Z79.84 Long term (current) use of oral hypoglycemic drugs
CPT/HCPCS: 36415; 80053; 80061; 83036; 84443; 85025

== ENCOUNTER → 2022-05-10 13:28 | Outpatient (CLI) | payer MEDICARE, BC, SELFPAY ==
[2022-05-10 13:39] LABS: Microscopic, Urine URINE MICROSCOPIC (MICROSCOPIC)
[2022-05-10 17:37] LABS: Appearance,Urine CLEAR (Clear); Bilirubin,Urine Negative (Negative); Blood, Urine Negative (Negative); Color,Urine YELLOW (Yellow); Glucose,Urine (UA) Negative (Negative); Ketones,Urine Negative (Negative); Leukocyte Esterase,Urine TRACE (Negative); Nitrate,Urine Negative (Negative); PH,Urine 5.5 (5.0-8.5); Protein,Urine Negative (Negative); Urobilinogen,Urine 0.2 EU/dl (0.2)
== END ==
PROVIDERS: PCP Internal Medicine Adolescent Medicine; Visit Provider Internal Medicine Adolescent Medicine
DX: R30.0 Dysuria (principal)
CPT/HCPCS: 81001

== ENCOUNTER 2022-12-01 21:20 | Emergency (ER) | payer MEDICARE, BC, SELFPAY ==
[2022-12-01 21:23] VITALS: BP 175/85; PULSE 98; RESP 18; TEMP 36.8; O2SAT 100; BMI 29.5
[2022-12-01 21:50] VITALS: BP 186/75; PULSE 82; RESP 18; TEMP 36.8; O2SAT 95
--- NOTE | 2022-12-01 22:07 | HMH.EDGENADL ---
Discharge Plan Disposition Patient Disposition: Home, Self-Care Condition: Good Prescriptions Prescriptions: No Action levothyroxine 100 MCG Tablet 88 mcg PO DAILY pravastatin 80 MG Tablet 80 mg PO HS losartan 100 MG Tablet 100 mg PO DAILY memantine 10 MG Tablet 10 mg PO BID donepezil 5 MG Tab.Rapdis 5 mg PO DAILY sitagliptin phos-metformin [Janumet] 0 Tablet 1 tab PO BID loperamide 2 MG capsule 2 mg PO Q2HP PRN (Reason: Diarrhea) famotidine 20 MG tablet 20 mg PO BID simethicone 80 MG tablet,chewable 80 mg PO DAILYP PRN (Reason: Gas Pain And Discomfort) sodium chloride 44 ML aerosol,spray 44 ml NS DAILYP PRN (Reason: Congestion) semaglutide 1 MG/0.75 ML pen injector 5 mg SQ WEEKLY cyanocobalamin (vitamin B-12) 1,000 MCG/ML solution 1,000 mcg IM WEEKLY escitalopram oxalate 10 MG tablet 20 mg PO DAILY quetiapine 200 MG tablet 200 mg PO HS levofloxacin 500 MG tablet 500 mg PO DAILY Qty: 7 0RF chlordiazepoxide-clidinium 1 EACH capsule 1 each PO ACHS nitrofurantoin monohyd/m-cryst 100 MG capsule 100 mg PO BID Qty: 14 0RF Referrals Follow up/Referrals: Sravan Anderson MD [Primary Care Provider] - See instructions Activity Restrictions/Add. Instructions Additional Instructions/Restrictions: Your magnesium was low, please follow-up with your primary care doctor as discussed. Please return with any new or worsening symptoms. Clinical Impressions Clinical Impression: Head injury Qualifiers: Encounter type: initial encounter Qualified Code(s): S09.90XA - Unspecified injury of head, initial encounter Discharge ED Provider: Stef Murry Adult [facility] General Chief complaint: Fall Stated complaint: fell hit head slurred speech Time Seen by Provider: 12/01/22 21:42 Mode of Arrival: Wheelchair Source of Information: Patient and Spouse Limitations: weakness Description of Symptoms (Recalled from ER Triage Doc. by RN): Pt presents with pain in her back, legs and head after taking a fall in the bathroom today around 1300. came home from [place] to find her, pt denies any LOC however it was unwitnessed. states she had a previous fall in 2019 which resulted in a brain bleed so the daughter made her come her. Pt denies any blood thinners. states her stumbling on words is baseline she has been doing it for the past several years. NIH 0 at this time. 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 Patient fell on back of head. No open injury. No blood thinner usage. No changes in medications or new medications. No missed meds. Related Data Home Medications Medication Instructions Recorded Confirmed donepezil 5 mg disintegrating 5 mg PO DAILY Memory 06/26/18 10/14/21 tablet levothyroxine 100 mcg tablet 88 mcg PO DAILY thyroid 06/26/18 10/14/21 losartan 100 mg tablet 100 mg PO DAILY High blood pressure 06/26/18 10/14/21 memantine 10 mg tablet 10 mg PO BID Memory 06/26/18 10/14/21 pravastatin 80 mg tablet 80 mg PO HS Cholesterol 06/26/18 10/14/21 sitagliptin phosphate 50 1 tab PO BID Diabetes 06/26/18 10/14/21 mg-metformin 1,000 mg tablet (Adrienumet) chlordiazepoxide-clidinium 5 1 each PO ACHS IBS 10/14/18 10/14/21 mg-2.5 mg capsule cyanocobalamin (vitamin B-12) 1,000 mcg IM WEEKLY Supplementation 03/10/20 10/14/21 1,000 mcg/mL injection solution famotidine 20 mg
[2022-12-01 22:08] VITALS: BP 186/75; PULSE 84; RESP 18; O2SAT 95
--- NOTE | 2022-12-01 22:15 | CT_ITS ---
PROCEDURE INFORMATION: Exam: CT Head Without Contrast Exam date and time: 12/01/2022 10:26 PM Age: 77 years old Clinical indication: Injury or trauma; Fall; Additional info: Fall, head injury TECHNIQUE: Imaging protocol: Computed tomography of the head without contrast. Radiation optimization: All CT scans at this facility use at least one of these dose optimization techniques: automated exposure control; mA and/or kV adjustment per patient size (includes targeted exams where dose is matched to clinical indication); or iterative reconstruction. REPORTING DATA: Count of CT and Cardiac NM exams in prior 12 months: This patient has received 0 known CTs and 0 known cardiac nuclear medicine studies in the 12 months prior to the current study. COMPARISON: MR HEAD/BRAIN WO CON 08/21/2021 8:29 AM FINDINGS: Brain: Moderate to severe brain volume loss with severe chronic ischemic changes. 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 No mass, hemorrhage or acute infarct. Cerebral ventricles: No ventriculomegaly. Paranasal sinuses: Visualized sinuses are unremarkable. No fluid levels. Mastoid air cells: Visualized mastoid air cells are well aerated. Bones/joints: Unremarkable. No acute fracture. Soft tissues: Unremarkable. IMPRESSION: No acute intracranial findings.
--- NOTE | 2022-12-01 22:15 | CT_ITS ---
PROCEDURE INFORMATION: Exam: CT Cervical Spine Without Contrast Exam date and time: 12/01/2022 10:28 PM Age: 77 years old Clinical indication: Injury or trauma; Fall; Additional info: Fall, head injury, neck pain TECHNIQUE: Imaging protocol: Computed tomography of the cervical spine without contrast. Radiation optimization: All CT scans at this facility use at least one of these dose optimization techniques: automated exposure control; mA and/or kV adjustment per patient size (includes targeted exams where dose is matched to clinical indication); or iterative reconstruction. REPORTING DATA: Count of CT and Cardiac NM exams in prior 12 months: This patient has received 0 known CTs and 0 known cardiac nuclear medicine studies in the 12 months prior to the current study. COMPARISON: CT CERVICAL SPINE W CON 10/31/2021 7:52 PM FINDINGS: Bones/joints: There are moderate degenerative changes of the spine. Endplate osteophytes and facet arthropathy. Multilevel disc space narrowing. No severe spinal canal narrowing. No fracture or dislocation. Lungs: Faint right upper lobe subcentimeter ground-glass changes. Soft tissues: Unremarkable. IMPRESSION: Impression. No acute findings. DJD. Nonspecific right lung changes which could be secondary to lung contusions or atypical pneumonia.
--- NOTE | 2022-12-01 22:15 | ECG_ITS ---
APPROVED REPORT Exam: Resting ECG HR:94 bpm ECG Measurements Heart Rate 94 AXES [place] 152 P 84 QRSd 99 QRS 17 QT 352 T 44 QTc 403 Conclusion SINUS RHYTHM NORMAL ECG UNCONFIRMED REPORT Electronically signed by : Sravan Anderson MD 12/02/2022 13:59:37
[2022-12-01 22:23] LABS: Basophils % 0.1 % (0.1-2.0); Eosinophils # 0.1 K/mm3 (0.0-0.4); Eosinophils % 0.8 % (0.1-12.0); Hematocrit 33.9 % (37.0-47.0); Hemoglobin 10.7 g/dL (12.2-16.2); Lymphocytes # 1.5 K/mm3 (0.7-4.5); Lymphocytes % 12.9 % (10-50); Mean Corpuscular HGB Conc 31.6 g/dL (31.8-35.4); Mean Corpuscular Hemoglobin 26.4 pg (27.0-31.2); Mean Corpuscular Volume 83.6 fl (81-99); Mean Platelet Volume 7.6 fl (7.4-10.4); Monocytes # 0.6 K/mm3 (0.1-1.0); Monocytes % 4.9 % (1.7-9.3); Neutrophils # 9.6 K/mm3 (1.8-7.8); Neutrophils % 81.4 % (37.0-80.0); Platelet Count 212 K/mm3 (142-424); Red Blood Count 4.05 M/mm3 (4.20-5.40); Red Cell Distribution Width 16.4 % (11.5-17.5); White Blood Count 11.9 K/mm3 (4.8-10.8)
[2022-12-01 22:28] LABS: Alanine Aminotransferase 28 U/L (12-78); Albumin Level 4.5 g/dl (3.5-5.0); Albumin/Globulin Ratio 1.2 (1.1-1.8); Alkaline Phosphatase 86 U/L (38-126); Anion Gap 14.6 mEq/L (5-15); Aspartate Amino Transferase 36 U/L (14-36); Bilirubin,Total 0.3 mg/dl (0.2-1.3); Blood Urea Nitrogen 13 mg/dl (7-17); Calcium 9.3 mg/dl (8.4-10.2); Carbon Dioxide 29 mmol/L (22.0-30.0); Chloride 94 mmol/L (98-107); Creatinine Clearance Estimated 49 mL/min (50-200); Estimated Glomerular Filt Rate 48 ml/min (>60); GFR (African American) 59 ML/MIN (>60); Globulin 3.8 g/dL (1.3-3.2); Glucose 182 mg/dl (74-100); Magnesium 1.2 mg/dl (1.6-2.3); Phosphorous 3.5 mg/dl (2.5-4.5); Potassium 4.6 mmoL/L (3.5-5.1); Sodium 133 mmol/L (136-145); Total Protein,Serum 8.3 g/dl (6.3-8.2)
[2022-12-01 22:29] LABS: INR 1.06 (0.9-1.1); Prothrombin Time 11.4 seconds (10.1-12.5)
[2022-12-01 22:58] LABS: Thyroid Stimulating Hormone 0.34 uIU/mL (0.465-4.68)
[2022-12-01 23:00] VITALS: BP 147/120; PULSE 95; O2SAT 92
[2022-12-01 23:31] VITALS: BP 163/81; PULSE 96; O2SAT 94
[2022-12-01 23:47] VITALS: BP 163/81; PULSE 90; RESP 16; TEMP 36.6; O2SAT 90
== END 2022-12-01 23:57 | disposition home or self-care (01) ==
PROVIDERS: Emergency Provider Emergency Medicine; PCP Internal Medicine Adolescent Medicine
DX: S09.90XA Unspecified injury of head, initial encounter (principal); M54.2 Cervicalgia; R41.0 Disorientation, unspecified; W18.30XA Fall on same level, unspecified, initial encounter; F41.9 Anxiety disorder, unspecified; E11.9 Type 2 diabetes mellitus without complications; E78.5 Hyperlipidemia, unspecified; I10 Essential (primary) hypertension; E83.42 Hypomagnesemia
CPT/HCPCS: 70450; 72125; 80053; 83735; 84100; 84439; 84443; 85025; 85610; 93005; 96365; 99285; J3475

== ENCOUNTER → 2022-12-04 15:54 | Outpatient (CLI) | payer MEDICARE, BC, SELFPAY ==
--- NOTE | 2022-12-04 15:58 | XR_ITS ---
FINAL REPORT CLINICAL HISTORY: RIGHT WRIST PAIN x 2 weeks, no known injury COMPARISON: None FINDINGS: RIGHT WRIST Three views demonstrate no acute fracture or dislocation. There is mild degenerative change. There is a small loose body adjacent to the first CMC. The visualized joint spaces are normally aligned. The soft tissues are unremarkable. IMPRESSION: Degenerative change without acute bony abnormality. Reviewed, Interpreted and Dictated by Gilberto Olivia III, MD Transcribed by Jacquie Rios Authenticated and [facility]
== END ==
PROVIDERS: PCP Internal Medicine Adolescent Medicine; Visit Provider Internal Medicine Adolescent Medicine
DX: M25.531 Pain in right wrist (principal)
CPT/HCPCS: 73110

== ENCOUNTER 2023-01-22 13:04 | Observation (INO) | payer MEDICARE, BC, SELFPAY ==
[2023-01-22] VITALS (8 sets, daily range): BP systolic 118–232; BP diastolic 77–144; PULSE 84–95; RESP 18–20; TEMP 36.6–37.2; O2SAT 91–97; BMI 40.3; BMI 25.9
--- NOTE | 2023-01-22 13:23 | XR_ITS ---
FINAL REPORT CLINICAL HISTORY: AMS COMPARISON: 10/31/2021 FINDINGS: A single portable view of the chest was obtained. The heart size and pulmonary vascularity are within normal limits. The mediastinum is within normal limits. No acute pulmonary abnormality is identified. The bony thorax is intact. IMPRESSION: No active cardiopulmonary disease. Reviewed, Interpreted and Dictated by Gilberto Olivia III, MD Transcribed by Jacquie Rios Authenticated and [facility]
--- NOTE | 2023-01-22 13:23 | CT_ITS ---
FINAL REPORT CLINICAL HISTORY: [facility] COMPARISON: 12/01/2022 FINDINGS: Axial images of the head were obtained without contrast. Coronal reformatted images were also obtained. This study was performed with techniques to keep radiation doses as low as reasonably achievable (ALARA). Individualized dose reduction techniques using automated exposure control or adjustment of mA and/or kV according to the patient's size were employed. There is generalized age appropriate atrophy. There are moderate chronic ischemic changes. There is no evidence of intracranial hemorrhage or mass. The ventricular size is within normal limits. There is no evidence of shift of the midline structures. No skull abnormality is seen on the bone window images. IMPRESSION: No acute intracranial abnormality. Reviewed, Interpreted and Dictated by Gilberto Olivia III, MD Transcribed by Jacquie Rios Authenticated and [facility]
--- NOTE | 2023-01-22 13:31 | HMH.EDGENADL ---
Discharge Plan Disposition Patient Disposition: Admitted Condition: Fair Clinical Impressions Clinical Impression: Altered mental status Discharge ED Provider: Stef Murry General Adult HPI <Inna Toribio, - Last Filed: 01/22/23 15:58> General Chief complaint: Altered Mental Status Stated complaint: head and abd pain Time Seen by Provider: 01/22/23 13:22 Mode of Arrival: Ambulatory Source of Information: Relative Limitations: Altered Mental Status Description of Symptoms (Recalled from ER Triage Doc. by RN): pt to ed c/o ams and abd pain. at the bedside states pt has been generally ill for 4-5 days. denies n/v/d. states pt has been intermittently c/o headache. on arrival to ed, pt is unable to answer any questions appropriately. History of Present Illness HPI narrative: This patient is a 77-year-old female with a history of diabetes, hypertension, and renal insufficiency presenting to the emergency department for evaluation with concern for altered mental status. She is presenting with her from home. Patient's states that she has been confused for 4 to 5 days. She has not been eating or drinking very much and has been intermittently complaining of a headache. The patient is currently confused but does not complain of any thing at this time. She states that she is feeling fine. Patient has not had any vomiting or diarrhea. She does have a history of urinary tract infection. Related Data Home Medications Medication Instructions Recorded Confirmed donepezil 5 mg disintegrating 5 mg PO DAILY Memory 06/26/18 01/22/23 tablet levothyroxine 100 mcg tablet 88 mcg PO DAILY thyroid 06/26/18 01/22/23 losartan 100 mg tablet 100 mg PO DAILY High blood pressure 06/26/18 01/22/23 memantine 10 mg tablet 10 mg PO BID Memory 06/26/18 01/22/23 pravastatin 80 mg tablet 80 mg PO HS Cholesterol 06/26/18 01/22/23 sitagliptin phosphate 50 1 tab PO BID Diabetes 06/26/18 01/22/23 mg-metformin 1,000 mg tablet (Janumet) chlordiazepoxide-clidinium 5 1 each PO ACHS IBS 10/14/18 01/22/23 mg-2.5 mg capsule cyanocobalamin (vitamin B-12) 1,000 mcg IM WEEKLY Supplementation 03/10/20 01/22/23 1,000 mcg/mL injection solution famotidine 20 mg tablet 20 mg PO BID heart burn 03/10/20 01/22/23 loperamide 2 mg capsule 2 mg PO Q2HP PRN Diarrhea 03/10/20 01/22/23 semaglutide 1 mg/dose (2 mg/1.5 5 mg SQ WEEKLY Diabetes 03/10/20 01/22/23 mL) subcutaneous pen injector simethicone 80 mg chewable tablet 80 mg PO DAILYP PRN Gas Pain And 03/10/20 01/22/23 Discomfort sodium chloride 0.65 % nasal spray 44 ml intranasal DAILYP PRN 03/10/20 01/22/23 aerosol Congestion escitalopram oxalate 10 mg tablet 20 mg PO DAILY Depression 04/23/21 01/22/23 quetiapine 200 mg tablet 200 mg PO HS sleep 04/23/21 01/22/23 Previous Rx's Medication Instructions Recorded nitrofurantoin 100 mg PO BID #14 caps 10/14/21 monohydrate/macrocrystals 100 mg capsule levofloxacin 500 mg tablet 500 mg PO DAILY #7 tabs 10/31/21 Allergies Allergy/AdvReac Type Severity Reaction Status Date / Time aspirin [ASPIRIN] Allergy Unknown Verified 01/07/21 20:30 hydroxyzine [HYDROXYZINE] Allergy Unknown Verified 01/07/21 20:30 meperidine [From DEMEROL] Allergy Unknown Verified 01/07/21 20:30 rosuvastatin [From CRESTOR] Allergy Unknown Verified 01/07/21 20:30 [facility] [place] <Inna Toribio, DO - Last Filed: 01/22/23 15:58> [facility] Disclaimer: The information contained in this section may have been updated after the patient was seen, as this information can be updated by other users. Medical History (Updated 01/22/23 @ 21:38 by Laura Staples RN) Afib Anxiety COVID-19 Diabetes mellitus, type 2 Hyperlipidemia Hypertension Rotator cuff arthropathy of both shoulders Subdural hematoma Surgical History (Updated 01/22/23 @ 21:19 by Laura Staples RN) History of appendectomy History of cholecystectomy History of hys
--- NOTE | 2023-01-22 13:44 | ECG_ITS ---
APPROVED REPORT Exam: Resting ECG HR:82 bpm ECG Measurements Heart Rate 82 AXES SD 150 P 88 QRSd 93 QRS -8 QT 399 T 82 QTc 438 Conclusion SINUS RHYTHM NONSPECIFIC T-WAVE ABNORMALITY BORDERLINE ECG UNCONFIRMED REPORT Electronically signed by : Sravan Anderson MD 01/23/2023 07:31:12
--- NOTE | 2023-01-22 13:47 | PC.NURSE ---
pt to ct
[2023-01-22 13:50] LABS: Basophils % 0.3 % (0.1-2.0); Eosinophils # 0.1 K/mm3 (0.0-0.4); Eosinophils % 0.9 % (0.1-12.0); Hematocrit 43.9 % (37.0-47.0); Hemoglobin 13.7 g/dL (12.2-16.2); Lymphocytes # 1.6 K/mm3 (0.7-4.5); Lymphocytes % 15.4 % (10-50); Mean Corpuscular HGB Conc 31.3 g/dL (31.8-35.4); Mean Corpuscular Hemoglobin 27.4 pg (27.0-31.2); Mean Corpuscular Volume 87.4 fl (81-99); Mean Platelet Volume 7.4 fl (7.4-10.4); Monocytes # 0.4 K/mm3 (0.1-1.0); Monocytes % 3.7 % (1.7-9.3); Neutrophils % 79.6 % (37.0-80.0); Platelet Count 343 K/mm3 (142-424); Red Blood Count 5.03 M/mm3 (4.20-5.40); Red Cell Distribution Width 16.1 % (11.5-17.5); White Blood Count 10.1 K/mm3 (4.8-10.8)
[2023-01-22 13:55] LABS: Chloride 102 mmol/L (98-107); Potassium 4.2 mmoL/L (3.5-5.1); Sodium 139 mmol/L (136-145)
[2023-01-22 13:58] LABS: Alanine Aminotransferase 32 U/L (12-78); Albumin Level 4.9 g/dl (3.5-5.0); Albumin/Globulin Ratio 1.1 (1.1-1.8); Alkaline Phosphatase 109 U/L (38-126); Anion Gap 18.2 mEq/L (5-15); Aspartate Amino Transferase 48 U/L (14-36); Bilirubin,Total 0.7 mg/dl (0.2-1.3); Blood Urea Nitrogen 17 mg/dl (7-17); Calcium 9.6 mg/dl (8.4-10.2); Carbon Dioxide 23 mmol/L (22.0-30.0); Creatinine Clearance Estimated 87 mL/min (50-200); Estimated Glomerular Filt Rate 61 ml/min (>60); GFR (African American) 74 ML/MIN (>60); Globulin 4.4 g/dL (1.3-3.2); Glucose 189 mg/dl (74-100); Total Protein,Serum 9.3 g/dl (6.3-8.2)
[2023-01-22 14:00] LABS: VBG Base Excess -4.9 mmol/L (-2.4-2.3); VBG HCO3 19.8 mmol/L (23-30); VBG Oxygen Saturation 99.3 % (50-70); VBG PH 7.41 mmol/L (7.31-7.41); VBG PO2 149.8 mmol/L (28-40); VBG Total CO2 20.8 mmol/L (23-27)
[2023-01-22 14:05] LABS: Lactic Acid 0.9 mmol/L (0.7-2.1)
[2023-01-22 14:29] LABS: Microscopic, Urine URINE MICROSCOPIC (MICROSCOPIC)
--- NOTE | 2023-01-22 14:33 | PC.NURSE ---
pt shaking advised she is hurting bad, Dr Toribio and RN went in to check on pt.
--- NOTE | 2023-01-22 14:37 | CT_ITS ---
FINAL REPORT TECHNIQUE: Postcontrast axial images through the abdomen and pelvis were performed. This study was performed with techniques to keep radiation doses as low as reasonably achievable, (ALARA). Individualized dose reduction techniques using automated exposure control or adjustment of mA and/or kV according to the patient's size were employed. CLINICAL HISTORY: abd pain, AMS COMPARISON: 10/14/2021 FINDINGS: Abdomen: There is mild atelectasis in the lung bases. The liver is normal in size and attenuation. The patient is status post cholecystectomy. The spleen is unremarkable. The adrenals are normal. The pancreas is unremarkable. There is mild left renal cortical thinning. The aorta is normal in caliber. No free fluid or adenopathy is identified. No findings for mechanical bowel obstruction are identified. There are postoperative changes in the lower lumbar spine. Pelvis: The appendix is not identified. Patient is status post hysterectomy. There is several sigmoid diverticula. The urinary bladder is unremarkable. No free fluid, free air, abscess or adenopathy is identified. IMPRESSION: Diverticulosis without evidence of diverticulitis. Reviewed, Interpreted and Dictated by Gilberto Olivia III, MD Transcribed by Padmini Gonzalez Authenticated and . [facility]
[2023-01-22 14:45] LABS: Appearance,Urine CLEAR (Clear); Blood, Urine Negative (Negative); Color,Urine YELLOW (Yellow); Glucose,Urine (UA) Negative (Negative); Ketones,Urine 1+ (Negative); Leukocyte Esterase,Urine Negative (Negative); Nitrate,Urine Negative (Negative); Protein,Urine 3+ (Negative); Specific Gravity, Urine >= 1.030 (1.005-1.030); Urobilinogen,Urine 0.2 EU/dl (0.2)
[2023-01-22 14:46] LABS: Bilirubin,Urine 1+ (Negative)
[2023-01-22 15:00] LABS: Amorphous Sediment,Urine Trace /lpf; Squamous Epithelial Cell,Urine Occasional #/hpf (0-5)
[2023-01-22 15:14] LABS: Ammonia 10 umol/L (9-30)
[2023-01-22 15:18] LABS: Lipase 50 U/L (23-300)
--- NOTE | 2023-01-22 16:19 | PC.NURSE ---
NOTIFIED DR. MCMILLAN CTS ARE RESULTED IN CHART
--- NOTE | 2023-01-22 16:24 | PC.NURSE ---
pt resting in bed sleeping at this time,visitors at bs
--- NOTE | 2023-01-22 17:48 | PC.NURSE ---
pt put on bedpan
--- NOTE | 2023-01-22 17:51 | PC.NURSE ---
pt was taken off bedpan did have unmeasured urine
--- NOTE | 2023-01-22 17:54 | PC.NURSE ---
pt resting in bed no other needs at this time, visitor at bs
--- NOTE | 2023-01-22 19:00 | PC.NURSE ---
rounded on pt, updated pt and ER MD states plan is to contact PCP for admission. Stated to pt and family that have asked ER MD to come in to speak with them and go over POC
--- NOTE | 2023-01-22 19:32 | PC.NURSE ---
on phone with dr robles
--- NOTE | 2023-01-22 19:36 | PC.NURSE ---
notified tank house operator of admission
--- NOTE | 2023-01-22 20:22 | PC.NURSE ---
2009 received phone report from vitaly rn/ed nurse. patient is a 77 yo female . diagnosis AMS and diverticulosis.
[2023-01-22 20:32] LABS: Coronavirus 19, PCR Not Detected (NotDetected); Influenza A, PCR Not Detected (NotDetected); Influenza B, PCR Not Detected (NotDetected)
--- NOTE | 2023-01-22 20:35 | PC.NURSE ---
2030 patient arrived to the floor via stretcher.
--- NOTE | 2023-01-22 20:36 | PC.NURSE ---
pt arrived to floor via stretcher @ 20:30
--- NOTE | 2023-01-22 21:36 | PC.NURSE ---
Pt AMS. Pt unable to give list of home meds. States he can bring home meds in tomorrow morning at the earliest.
--- NOTE | 2023-01-22 21:37 | PC.NURSE ---
Pt AMS. Pt unable to give list of home meds. States he can bring home meds in tomorrow morning at the earliest.
--- NOTE | 2023-01-23 01:32 | HMH.EDGENADL ---
Discharge Plan Disposition Patient Disposition: Admitted Condition: Fair Clinical Impressions Clinical Impression: Altered mental status Discharge ED Provider: Stef Murry Adult HPI General Chief complaint: Altered Mental Status Stated complaint: head and abd pain Time Seen by Provider: 01/22/23 13:22 Mode of Arrival: Ambulatory Source of Information: Relative Limitations: Altered Mental Status Description of Symptoms (Recalled from ER Triage Doc. by RN): pt to ed c/o ams and abd pain. at the bedside states pt has been generally ill for 4-5 days. denies n/v/d. states pt has been intermittently c/o headache. on arrival to ed, pt is unable to answer any questions appropriately. History of Present Illness HPI narrative: Patient presents for evaluation of 1 episode of bright red blood either per rectum or per vagina occurring last night. History obtained with family member at bedside who reports that patient overflowed the toilet bowl due to the amount of blood. Patient is unsure if she experienced the symptoms during a bowel movement or per her vagina although does complain of chronic prolapse of vaginal cuff status post hysterectomy. No hematemesis, does complain of dysuria and frequency. Related Data Home Medications Medication Instructions Recorded Confirmed donepezil 5 mg disintegrating 5 mg PO DAILY Memory 06/26/18 01/22/23 tablet levothyroxine 100 mcg tablet 88 mcg PO DAILY thyroid 06/26/18 01/22/23 losartan 100 mg tablet 100 mg PO DAILY High blood pressure 06/26/18 01/22/23 memantine 10 mg tablet 10 mg PO BID Memory 06/26/18 01/22/23 pravastatin 80 mg tablet 80 mg PO HS Cholesterol 06/26/18 01/22/23 sitagliptin phosphate 50 1 tab PO BID Diabetes 06/26/18 01/22/23 mg-metformin 1,000 mg tablet (Janumet) chlordiazepoxide-clidinium 5 1 each PO ACHS IBS 10/14/18 01/22/23 mg-2.5 mg capsule cyanocobalamin (vitamin B-12) 1,000 mcg IM WEEKLY Supplementation 03/10/20 01/22/23 1,000 mcg/mL injection solution famotidine 20 mg tablet 20 mg PO BID heart burn 03/10/20 01/22/23 loperamide 2 mg capsule 2 mg PO Q2HP PRN Diarrhea 03/10/20 01/22/23 semaglutide 1 mg/dose (2 mg/1.5 5 mg SQ WEEKLY Diabetes 03/10/20 01/22/23 mL) subcutaneous pen injector simethicone 80 mg chewable tablet 80 mg PO DAILYP PRN Gas Pain And 03/10/20 01/22/23 Discomfort sodium chloride 0.65 % nasal spray 44 ml intranasal DAILYP PRN 03/10/20 01/22/23 aerosol Congestion escitalopram oxalate 10 mg tablet 20 mg PO DAILY Depression 04/23/21 01/22/23 quetiapine 200 mg tablet 200 mg PO HS sleep 04/23/21 01/22/23 Previous Rx's Medication Instructions Recorded nitrofurantoin 100 mg PO BID #14 caps 10/14/21 monohydrate/macrocrystals 100 mg capsule levofloxacin 500 mg tablet 500 mg PO DAILY #7 tabs 10/31/21 Allergies Allergy/AdvReac Type Severity Reaction Status Date / Time aspirin [ASPIRIN] Allergy Unknown Verified 01/07/21 20:30 hydroxyzine [HYDROXYZINE] Allergy Unknown Verified 01/07/21 20:30 meperidine [From DEMEROL] Allergy Unknown Verified 01/07/21 20:30 rosuvastatin [From CRESTOR] Allergy Unknown Verified 01/07/21 20:30 PFS PFS Disclaimer: The information contained in this section may have been updated after the patient was seen, as this information can be updated by other users. Medical History (Updated 01/22/23 @ 21:38 by Laura Staples RN) Afib Anxiety COVID-19 Diabetes mellitus, type 2 Hyperlipidemia Hypertension Rotator cuff arthropathy of both shoulders Subdural hematoma Surgical History (Updated 01/22/23 @ 21:19 by Laura Staples RN) History of appendectomy History of cholecystectomy History of hysterectomy Previous back surgery Total knee replacement status Social History (Updated 01/22/23 @ 21:21 by Laura Staples RN) Smoking Status: Never smoker alcohol intake: never current occupational status: retired Travel in the last 8 wee
[2023-01-23 02:09] VITALS: BP 212/88; PULSE 87
--- NOTE | 2023-01-23 02:16 | PC.NURSE ---
DR DUEÑSA NOTIFIED RE ELEVATED BP. ORDER RECEIVED TO GIVE AVAPRO 150 MG PO NOW.
[2023-01-23 03:00] VITALS: BP 205/95; PULSE 86
--- NOTE | 2023-01-23 03:27 | PC.NURSE ---
BP REMAINS ELEVATED AT 205/95. HR 86. DR DUEÑAS NOTIFIED AND ORDER RECEIVED FOR CLONIDINE 0.1 MG PO X 1 DOSE.
[2023-01-23 04:00] VITALS: BMI 25.8
[2023-01-23 05:12] VITALS: BP 167/91; PULSE 80; RESP 18; TEMP 36.5; O2SAT 94
--- NOTE | 2023-01-23 05:24 | PC.NURSE ---
BP STARTING TO COME DOWN. LAST BP 167/91. ASYMPTOMATIC. NO N/V/D. NORMOACTIVE BOWEL SOUNDS X 4. ABDOMEN NTTP, NON DISTENDED. DENIES PAIN. HAS DIFFICULTY REMEBERING NAME, PLACE, DATE. WILL FOLLOW COMMANDS. NODS HEAD TO QUESTIONS.
[2023-01-23 07:45] VITALS: BP 195/86; PULSE 79; RESP 18; TEMP 36.6; O2SAT 97
--- NOTE | 2023-01-23 08:46 | HMH.PHAINT1 ---
Pharmacy Intervention Comments: MEDICATION RECONCILIATION COMPLETED ON PATIENT USING EXTERNAL FILL HISTORY FROM PHARMACY. -KIMBERLY SHARMA, BASILD
--- NOTE | 2023-01-23 09:04 | MR_ITS ---
FINAL REPORT CLINICAL HISTORY: MS change COMPARISON: 08/21/2021 FINDINGS: Multiplanar MR imaging of the brain was performed without contrast. There is stable, mild age-appropriate atrophy. There are stable, scattered foci of increased T2 signal in the cerebral white matter that have a nonspecific appearance but likely represent moderate chronic ischemic/gliotic changes. There is no evidence of intracranial hemorrhage or mass. No abnormal ventricular dilatation is identified. No abnormal extra-axial fluid collection is seen. No abnormality is seen on the diffusion weighted images. 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 The posterior fossa and brainstem are unremarkable. Normal major vessel vascular flow voids are seen. IMPRESSION: Stable, age-appropriate atrophy and mild chronic ischemic/gliotic changes. No acute intracranial abnormality. Reviewed, Interpreted and Dictated by Gilberto Olivia III, MD Transcribed by Zuly Jackson Authenticated and [facility]
--- NOTE | 2023-01-23 09:11 | CA_ITS ---
FINAL REPORT TECHNIQUE: Color Doppler, duplex Doppler and mac scale sonography of the bilateral neck arterial vasculature was performed. Velocities were measured in the carotid arteries. Stenosis evaluation based on the validated velocity criteria. CLINICAL HISTORY: CONFUSION,DM,HTN,HLD,DM FINDINGS: The peak systolic velocity of the right common carotid artery is 72 cm/s. The peak systolic velocity of the right internal carotid artery is 158 cm/s and end diastolic velocity 17 cm/s. A small amount of plaque is present. The right external carotid artery is patent. The right vertebral artery is patent with antegrade flow. The peak systolic velocity of the left common carotid artery is 97 cm/s. The peak systolic velocity of the left internal carotid artery is 113 cm/s and end diastolic velocity 12 cm/s. A small amount of plaque is present. The left external carotid artery is patent.The left vertebral artery is patent with antegrade flow. IMPRESSION: Less than 50% bilateral carotid stenoses. Bilateral patent vertebral arteries with antegrade flow. If indicated, CTA or MRA could further evaluate. Reviewed, Interpreted and Dictated by Gilberto Olivia III, MD Transcribed by Zuly Jackson Authenticated and [facility]
[2023-01-23 10:18] LABS: Ammonia < 9 umol/L (9-30)
--- NOTE | 2023-01-23 10:56 | HMH.ITSTN ---
went up to get patient for mri , per rn she is getting a eeg and will call when she is done with that
[2023-01-23 11:21] LABS: Vitamin B12 347 pg/mL (239-931)
--- NOTE | 2023-01-23 12:45 | EXP.HP ---
History of Present Illness *Admission Date: 01/22/23 *Reason for visit:: Mental status changes *History of present illness: 77-year-old female with multiple medical problems, history of falls with subdural hematoma in the remote past, severe anxiety disorder and mood disorder issues along with diabetes was brought to the emergency department on the day of admission by her because she had become increasingly confused and had not been taking her medicine for a couple of days. He reports that she had a 2 to 3-week history of insidious abdominal pain with nausea and slightly diminished p.o. intake, and he encouraged her to come to my office but she refused. He noticed that 2 days before admission she had been making coffee and correctly by putting the coffee grounds into the coffee pot itself and not in the filter before brewing, and she did not recognize her mistake and has been increasingly disoriented and making random inappropriate comments that had no bearing on her current situation throughout the past day or so. She continued to refuse going to seek medical attention. However the evening of presentation to the ER she became essentially obtunded and he brought her to the emergency department. ER evaluation included CT scan of head and a CBC and metabolic panel which were unremarkable. She was admitted for further evaluation. [facility] Disclaimer: The information contained in this section may have been updated after the patient was seen, as this information can be updated by other users. Medical History (Updated 01/23/23 @ 12:51 by Sravan Anderson MD) Afib Anxiety COVID-19 Diabetes mellitus, type 2 Hyperlipidemia Hypertension Rotator cuff arthropathy of both shoulders Subdural hematoma Surgical History (Updated 01/22/23 @ 21:19 by Laura Staples RN) History of appendectomy History of cholecystectomy History of hysterectomy Previous back surgery Total knee replacement status Social History (Updated 01/22/23 @ 21:21 by Laura Stalpes RN) Smoking Status: Never smoker alcohol intake: never current occupational status: retired Travel in the last 8 weeks: None household members: spouse housing: house current occupational exposures/hazards: No caffeine: Yes Review of Systems Review of Systems Review of systems:: unable to obtain Meds Home Medications and Allergies Home Medications Medication Instructions Recorded Confirmed Type losartan 100 mg tablet 100 mg PO DAILY High blood pressure 06/26/18 01/22/23 History memantine 10 mg tablet 10 mg PO BID Memory 06/26/18 01/22/23 History pravastatin 80 mg tablet 80 mg PO HS Cholesterol 06/26/18 01/22/23 History chlordiazepoxide-clidinium 5 1 each PO ACHS IBS 10/14/18 01/22/23 History mg-2.5 mg capsule famotidine 20 mg tablet 20 mg PO BID Acid Reflux 03/10/20 01/22/23 History diclofenac sodium 1 % topical gel 1 ea topical TID Pain 01/23/23 01/23/23 History donepezil 10 mg tablet 10 mg PO DAILY Memory 01/23/23 01/23/23 History escitalopram oxalate 20 mg tablet 20 mg PO DAILY Mood 01/23/23 01/23/23 History levothyroxine 88 mcg tablet 88 mcg PO DAILY Thyroid 01/23/23 01/23/23 History quetiapine 400 mg tablet 400 mg PO HS Mood 01/23/23 01/23/23 History sitagliptin phosphate 50 1 tab PO BID Diabetes 01/23/23 01/23/23 History mg-metformin 1,000 mg tablet (Lars) New Prescriptions to Start Prescriptions: Allergies Allergy/AdvReac Type Severity Reaction Status Date / Time aspirin [ASPIRIN] Allergy Unknown Verified 01/07/21 20:30 hydroxyzine [HYDROXYZINE] Allergy Unknown Verified 01/07/21 20:30 meperidine [From DEMEROL] Allergy Unknown Verified 01/07/21 20:30 rosuvastatin [From CRESTOR] Allergy Unknown Verified 01/07/21 20:30 Exam Data for Last 24 hours Vital signs and Labs for Last 24 Hours: Temp Pulse Resp BP Pulse Ox O2 Del Method 97.9 F 79 18 195/86 H 97 Room Air 01/23/23 07:45 01/23/23 07:45 1
[2023-01-23 16:00] VITALS: BP 199/99; PULSE 89; RESP 18; TEMP 36.6; O2SAT 95
--- NOTE | 2023-01-23 16:55 | PC.NURSE ---
PT IS RESTING IN BED WITH FAMILY AT BEDSIDE. THIS MORNING PT WAS ALERT TO SELF ONLY AND VERY DROWSY. THIS AFTERNOON SHE IS ALERT TO SELF AND PLACE AND MORE AWAKE BUT IS STILL CONFUSED TO WHY SHE IS HERE AND IS HAVING DIFFICULTY WITH FINDING HER WORDS. PT'S BP HAS BEEN ELEVATED T/O THE SHIFT. NOTIFIED DR. BERG AND HE ORDERED A ONE TIME DOSE OF LOSARTAN 100 MG. PT TOOK MEDICATION W/O DIFFICULTY AND WAS ABLE TO TOLERATE EATING LUNCH. PURWICK IN PLACE. PT HAS BEEN INCONTINENT T/O THE SHIFT. ABDOMEN SOFT/TENDERNESS NOTED ON PALPATION. HYPOACTIVE BOWEL SOUNDS. WILL CONTINUE TO MONITOR.
[2023-01-23 17:11] LABS: Barbiturates Screen,Urine Negative ng/ml (<200)
[2023-01-23 17:12] LABS: Amphetamine/Metha Screen,Urine Negative ng/ml (<1000); Benzodiazepines Screen,Urine Positive ng/ml (<200)
[2023-01-23 17:13] LABS: Cannabinoid Screen,Urine Negative ng/ml (<50); Methadone Screen,Urine Negative ng/ml (<300)
[2023-01-23 17:14] LABS: Cocaine Screen,Urine Negative ng/ml (<300)
[2023-01-23 17:15] LABS: Opiate Screen,Urine Negative ng/ml (<300); Phencyclidine Screen,Urine Negative ng/ml (<25)
[2023-01-23 19:47] VITALS: BP 156/95; PULSE 80; RESP 18; TEMP 36.7; O2SAT 96
[2023-01-24 04:00] VITALS: BP 179/97; PULSE 71; RESP 20; TEMP 36.6; O2SAT 94; BMI 25.9
--- NOTE | 2023-01-24 04:33 | PC.NURSE ---
notified margaret of bp 179/97, no new orders received
[2023-01-24 08:00] VITALS: BP 190/74; PULSE 78; RESP 19; TEMP 36.6; O2SAT 95
--- NOTE | 2023-01-24 09:18 | EXP.ACUTE.PN ---
Subjective *Date: 01/24/23 *Time: 09:18 Interval history: Patient has improved dramatically since her significant mental status change/acute delirium of her admission exam and yesterday's exam. MRI scanning of brain showed age associated atrophy but no acute changes, carotid duplex testing showed no flow deficits. This morning she is awake, talkative, oriented x3. Complaining about her belly and her poor night sleep. Has no further dizziness. Medical Exam Vital signs and Labs for Last 24 Hours: Vital Signs Temp Pulse Resp BP Pulse Ox O2 Del Method 01/24/23 08:00 97.9 F 78 19 190/74 H 95 Room Air 01/24/23 04:00 97.9 F 71 20 179/97 H 94 L Room Air 01/23/23 20:00 Room Air 01/24/23 06:47 Room Air 01/24/23 05:00 Room Air 01/24/23 03:00 Room Air 01/24/23 01:00 Room Air 01/23/23 23:00 Room Air 01/23/23 21:00 Room Air 01/23/23 19:47 98.1 F 80 18 156/95 H 96 Room Air 01/23/23 19:00 Room Air 01/23/23 16:54 Room Air 01/23/23 15:00 Room Air 01/23/23 16:00 97.9 F 89 18 199/99 H 95 Room Air 01/23/23 12:36 Room Air 01/23/23 10:31 Room Air Intake and Output 01/23/23 01/24/23 01/24/23 19:59 03:59 11:59 Intake Total 0 / 815 575 / 815 240 / 815 Output Total 0 / 1400 1400 / 1400 0 / 1400 Balance 0 / -585 -825 / -585 240 / -585 Intake: Intake, Oral Amount 0 / 440 200 / 440 240 / 440 Intake, Total IV Amount 375 / 375 0.9 % Sodium Chloride 1000ML 1, 375 / 375 000 ml @ 75 mls/hr IV .[id number] [facility] Rx#:[id number] Output: Output, Urine Amount 0 / 1400 1400 / 1400 0 / 1400 Other: Number of Voids 0 Number of Unmeasured Voids 0 0 Weight 161 lb 9.6 oz Patient Weight 01/24/23 11:59 Weight 161 lb 9.6 oz Laboratory Results - last 24 hr 01/23/23 09:42: Ammonia < 9 L, Vitamin B12 347 01/23/23 14:23: Urine Opiates Screen Negative, Urine Methadone Screen Negative, Ur Barbituates Screen Negative, Ur Phencyclidine Scrn Negative, Ur Amphetamines Screen Negative, U Benzodiazepines Scrn Positive H, Urine Cocaine Screen Negative, U Marijuana (THC) Screen Negative I & O for Labs for Last 24 Hours: Intake & Output 01/21/23 01/22/23 01/23/23 01/24/23 11:59 11:59 11:59 11:59 Intake Total 1328 / 1328 815 / 815 Output Total 350 / 350 1400 / 1400 Balance 978 / 978 -585 / -585 Weight 160 lb 11.2 oz 161 lb 9.6 oz Comment:: Patient is pleasant, talkative, alert. Oriented x3. Lungs clear, heart rate regular, moving all extremities. Previously noted twitching has resolved. Abdomen soft, minimal diffuse tenderness in both lower quadrants. No edema noted. Assessment and Plan *Assessment and plan (1) Acute delirium: Status: Acute Category: Medical Code(s): R41.0 - Disorientation, unspecified (2) Diverticulosis: Status: Acute Category: Medical Code(s): K57.90 - Diverticulosis of intestine, part unspecified, without perforation or abscess without bleeding (3) Altered mental status: Status: Acute Category: Medical Code(s): R41.82 - Altered mental status, unspecified Plan Wide differential diagnosis in this medically compromised female with a history of psych disease, and multiple comorbid medical conditions. We will proceed with MRI scanning today, carotid Doppler and EEG testing. I have added other metabolic tests to her panel including TSH, ammonia, B12 levels. Plan update for January 24, 2023: Patient nicely improved. We will restart some home medications. I have talked to her about cutting back on medications that could cause delirium such as Librium and her Seroquel. We will hold these for now. Restart Seroquel at lower doses if needed. I am not sure if her compliance with these medicines at home but she did have benzodiazepines and drug screen and this certainly is something that would be beneficial to taper down. No eviden
--- NOTE | 2023-01-24 10:20 | SW/DCPLANNER ---
Addendum entered by Columba Cook 01/24/23 12:56: Selene w/ [facility] stated that services will begin Friday01/27/23 for this patient. Addendum entered by Columba Cook 01/24/23 11:52: Patient will discharge home today. Patient information/order has been faxed to [facility]. Original Note: I spoke w/ patient and her regarding plans once medically stable for discharge. Patient resides at home w/ her and does not currently receive any assistance at home. PT/OT evaluated patient and recommended SNF or home w/home health. I explained to patient and her that SNF level of care would be under private pay. Patient and prefer that patient prefer to return home w/ home health services. Patient prefers to use [facility] at time of discharge. Discharge date is unknown at this time: home health services will be set up once medically stable for discharge.
--- NOTE | 2023-01-24 11:02 | HMH.OTEV ---
OT Inpatient Evaluation Rehab OT IP Evaluation Start: 01/24/23 08:45 Freq: ONCE Status: Active Protocol: Document 01/24/23 10:54 LATISHA (Rec: 01/24/23 11:01 LATISHA [id number]) Rehab OT IP Assessment Subjective History Discharge date: 01/23/23 *Admission Date: 01/23/23 *Chief complaint: Constipation , possible vaginal or rectal prolapse *History of present illness: 81-year-old female, relatively new patient to our practice in [place], [place], who was seen as a new patient a couple of weeks ago and felt like she had rectal prolapse. One of my nurse practitioners examined her and found that she did not have rectal prolapse but had some mild hemorrhoids, but did have prolapse material in the vaginal vault, possibly either vaginal cuff prolapse or bladder prolapse. She was beginning the process of referral to gynecology for this. Patient has been doing well living at home with her daughter until she began to have a lot of pain and feelings that other organs were prolapsing and presented to the ER late last night. ER work-up included a CT scan of her abdomen and pelvis which was really nondiagnostic , no evidence of retained stool in the rectal vault, no significant organ malformation -the CT scan had been done after a Rodriguez catheter had been placed which had relieved most of the patient's symptoms and no evidence of vaginal prolapse or mass was noted on the CT. The patient was admitted. The ER doctor initially called [facility] for joie
--- NOTE | 2023-01-24 11:33 | EXP.DC.SUM ---
General Admission date:: 01/22/23 Discharge date: 01/24/23 HPI HPI HPI: 77-year-old female with multiple medical problems, history of falls with subdural hematoma in the remote past, severe anxiety disorder and mood disorder issues along with diabetes was brought to the emergency department on the day of admission by her because she had become increasingly confused and had not been taking her medicine for a couple of days. He reports that she had a 2 to 3-week history of insidious abdominal pain with nausea and slightly diminished p.o. intake, and he encouraged her to come to my office but she refused. He noticed that 2 days before admission she had been making coffee and correctly by putting the coffee grounds into the coffee pot itself and not in the filter before brewing, and she did not recognize her mistake and has been increasingly disoriented and making random inappropriate comments that had no bearing on her current situation throughout the past day or so. She continued to refuse going to seek medical attention. However the evening of presentation to the ER she became essentially obtunded and he brought her to the emergency department. ER evaluation included CT scan of head and a CBC and metabolic panel which were unremarkable. She was admitted for further evaluation. Hospital Course Hospital Course Hospital Course: Patient was admitted, IV fluids were given. She was subjected to further neurologic testing including imaging with an MRI which showed age-related atrophy but no acute changes. Carotid Dopplers were also unremarkable. With holding her home medication she actually improved and came back to her baseline neurologic and psychiatric exam except for some weakness. PT evaluated her this morning and recommended skilled care but patient did not qualify from her insurance perspective and family did not wish to do private pay. They felt they could do things at home with home health and PT agrees that if she has 24-hour assistance at home along with home health she would do well. She had some belly pain and we will treat her for diverticulosis on discharge with short course quinolone and prednisone therapy. I have asked her to stop her Librium. I think this contributed to her mental status change. She has been on this for many years but in the context of abdominal pain and possible diminished p.o. intake I think this probably built up in her system. I will also ask her to cut down her Seroquel to 200 mg at at bedtime for mood and sleep. Other medications will remain the same. I will see her in my office this coming week for a discharge transitions/care visit Of note her blood pressure is fairly high in the hospital but she had not been taking her blood pressure medication for several days because of her abdominal pain and then her obtunded status. I did not adjust this in the hospital but recommended that she continue her losartan and we will follow this up in the office. I performed a [id number] evaluation on this patient today, and determined that this patient cannot leave home without significant difficulty based on pain, immobility and ataxia issues. They qualify for home health evaluation for PT/OT evaluation as well as nursing care, home safety and follow-up medical care. Exam Data for Last 24 hours Vital signs and Labs for Last 24 Hours: Temp Pulse Resp BP Pulse Ox O2 Del Method 97.9 F 78 19 190/74 H 95 Room Air 01/24/23 08:00 01/24/23 08:00 01/24/23 08:00 01/24/23 08:00 01/24/23 08:00 01/24/23 10:51 Laboratory Results - last 24 hr 01/23/23 14:23: Urine Opiates Screen Negative, Urine Methadone Screen Negative, Ur Barbituates Screen Negative, Ur Phencyclidine Scrn Negative, Ur Amphetamines Screen Negative, U Benzodiazepines Scrn Positive H, Urine Cocaine Screen Negative, U Marijuana (THC) Screen Negative I & O for Last 24 hours: Intake & Output 01/21/23 01/22/23 01/23/23 01/24/23
[2023-01-24 12:09] VITALS: BMI 25.8
--- NOTE | 2023-01-24 12:35 | HMH.PTEV ---
Physical Therapy Evaluation Rehab PT IP Evaluation Start: 01/24/23 08:45 Freq: ONCE Status: Active Protocol: Document 01/24/23 12:20 HWADE (Rec: 01/24/23 12:34 HWADE [id number]) Subjective/History History History Pt is a 77 year old female that presented to [facility] ED accompanied by her with d/t increasing confusion and AMS. Pt's reported a 2-3 week history of insidious abdominal pain with nausea and slightly diminished p.o. intake. Evaluation in the ED consisted of CT scan of head and a CBC and metabolic panel which were unremarkable. She was admitted for further evaluation and medical management. PMH: a-fib, anxiety, HTN, HLD, DM2, SDH Subjective Subjective Pt presents in semi-fowlers position in bed with at side, pleasant and agreeable to therapy initial evaluation. Pt reports that she has a little stomach pain at rest. Pt reports that she lives at home with her in a H with 0 JUNI. Pt reports she does not use an AD at baseline but has a RW, w/c and cane at home. Pt reports that she was independent with all B/IADL's prior to admission. Pt performed supien to sit on EOB with min A. Pt able to maintain static sitting at EOB with CGA for safety. Pt performed sit to stand transfer with the use of a RW and min A. Pt able to ambulate x4' to bedside chair with min A. Following evaluation, pt left seated in bedisde chair with call light and all needs within reach. at side New diagnosis of cancer in past 12 No months? Rehab PT IP Eval Objective Appearance Patient Behavior
--- NOTE | 2023-01-29 16:02 | CARE MANAGER ---
CM attempted to reach patient to discuss recent discharge. Call attempted x 2, VM was left.
== END 2023-01-24 12:58 | disposition home health service (06) ==
LOC: ER 15:30 → 2ND 19:38
PROVIDERS: Emergency Medicine; Admitting Provider Family Medicine; Emergency Provider Emergency Medicine; PCP Internal Medicine Adolescent Medicine; Visit Provider Internal Medicine Adolescent Medicine
DX: K57.90 Diverticulosis of intestine, part unspecified, without perforation or abscess without bleeding (principal); R41.0 Disorientation, unspecified; E11.9 Type 2 diabetes mellitus without complications; I10 Essential (primary) hypertension; E78.5 Hyperlipidemia, unspecified; F41.9 Anxiety disorder, unspecified; I65.23 Occlusion and stenosis of bilateral carotid arteries; Z79.899 Other long term (current) drug therapy
CPT/HCPCS: 70450; 70551; 71045; 74177; 80053; 80305; 81001; 82140; 82607; 82803; 83605; 83690; 84439; 84443; 85025; 87636; 93005; 93880; 95816; 97161; 97165; 99285; G0378; J1956; Q9967

== ENCOUNTER 2023-02-02 01:20 | Inpatient (IN) | payer MEDICARE, BC, SELFPAY ==
[2023-02-02] VITALS (11 sets, daily range): BP systolic 127–180; BP diastolic 51–76; PULSE 68–101; RESP 10–20; TEMP 36.6–38.1; O2SAT 92–99; BMI 29.0; BMI 31.1
--- NOTE | 2023-02-02 01:21 | CT_ITS ---
PROCEDURE INFORMATION: Exam: CT Head Without Contrast Exam date and time: 02/02/2023 1:42 AM Age: 77 years old Clinical indication: Altered mental status/memory loss; Other: Nonverbal; Additional info: AMS, nonverbal TECHNIQUE: Imaging protocol: Computed tomography of the head without contrast. Total images: 263 Radiation optimization: All CT scans at this facility use at least one of these dose optimization techniques: automated exposure control; mA and/or kV adjustment per patient size (includes targeted exams where dose is matched to clinical indication); or iterative reconstruction. REPORTING DATA: Count of CT and Cardiac NM exams in prior 12 months: This patient has received 4 known CTs and 0 known cardiac nuclear medicine studies in the 12 months prior to the current study. COMPARISON: MR HEAD/BRAIN WO CON 01/23/2023 11:39 AM FINDINGS: Brain: Interval visualization of global hypodensity with loss of mac-white interface anterior right temporal lobe compatible with acute to subacute nonhemorrhagic infarct. No acute intracranial hemorrhage, midline shift, or mass. Mild cortical and cerebellar atrophy. Moderate periventricular and subcortical white matter hypodensity compatible with remote small vessel ischemia. Basilar cisterns are preserved. Remote bilateral cerebellar lacunar infarcts. Cerebral ventricles: No ventriculomegaly. Paranasal sinuses: Visualized sinuses are unremarkable. No fluid levels. Mastoid air cells: Visualized mastoid air cells are well aerated. Auditory system: Small filling defect right external auditory canal compatible with cerumen. Orbital cavities: Status post bilateral orbital lens replacement. Bones/joints: Hyperostosis of the frontal calvarium. No skull fracture. Soft tissues: Unremarkable. Vasculature: Severe calcifications bilateral intracranial internal carotid arteries. IMPRESSION: 1. Interval acute to subacute nonhemorrhagic infarct anterior right temporal lobe. 2. Additional stable chronic intracranial findings unchanged from brain MRI January 23, 2023
--- NOTE | 2023-02-02 01:21 | XR_ITS ---
PROCEDURE INFORMATION: Exam: XR Chest Exam date and time: 02/02/2023 2:00 AM Age: 77 years old Clinical indication: Other: AMS TECHNIQUE: Imaging protocol: Radiologic exam of the chest. Views: 1 view. Total images: 2 COMPARISON: CR XR CHEST PORTABLE 01/22/2023 2:08 PM FINDINGS: Lungs: Calcified right pulmonary granuloma. Mild left basilar atelectasis. No airspace consolidation or vascular congestion. Poor lung expansion. Pleural spaces: Unremarkable. No pleural effusion. No pneumothorax. Heart/Mediastinum: Calcified mediastinal and right hilar lymph nodes. Bones/joints: Osteopenia. Moderate degenerative changes cervicothoracic spine. Postsurgical changes left shoulder. IMPRESSION: 1. No radiographically acute cardiopulmonary process. 2. Poor lung expansion with mild left basilar atelectasis. 3. Remote calcified granulomatous disease.
--- NOTE | 2023-02-02 01:22 | ECG_ITS ---
APPROVED REPORT Exam: Resting ECG HR:77 bpm ECG Measurements Heart Rate 77 AXES VA 151 P 83 QRSd 112 QRS -11 QT 393 T 62 QTc 424 Conclusion SINUS RHYTHM MODERATE INTRAVENTRICULAR CONDUCTION DELAY [110+ ms QRS DURATION] NONSPECIFIC T-WAVE ABNORMALITY BORDERLINE ECG UNCONFIRMED REPORT Electronically signed by : Sravan Anderson MD 02/03/2023 17:23:39
--- NOTE | 2023-02-02 01:25 | PC.NURSE ---
received report from MARY Sultana-P
--- NOTE | 2023-02-02 01:25 | HMH.EDGENADL ---
Discharge Plan Disposition Patient Disposition: Admitted Condition: Good Clinical Impressions Clinical Impression: EDU (acute kidney injury), Encephalopathy acute, Metabolic acidosis Discharge ED Provider: Inna Toribio General Adult HPI General Chief complaint: Altered Mental Status Stated complaint: AMS Time Seen by Provider: 02/02/23 01:21 Mode of Arrival: EMS Source of Information: Spouse, EMS and Medical Record Limitations: Altered Mental Status History of Present Illness HPI narrative: This patient is a 77-year-old female with a history of memory impairment, hypertension, diabetes, and hypothyroidism presented to the emergency department for evaluation with concern for altered mental status. According to EMS, the patient's had told them that she fell asleep in her, and around 1130 this morning, 14 hours ago at this point. He noted to EMS that she has difficulty sleeping, so he was letting her sleep. She did not wake up, so he tried to wake her up later this evening to get her to go to bed, but she would open her eyes but not respond. This is an acute change from her baseline mental status, and she is normally communicative without difficulty. According to EMS, patient will not verbally respond but does open her eyes to voice. They note that fingerstick blood glucose was 211. They note vital signs were stable in route. No other concerns noted at this time. Patient does not contribute to history given altered mental status. Upon arrival, family notes that they are concerned she may have taken her medications twice. Patient's medication history per list provided to EMS: Morning medications: Memantine, famotidine, donepezil, levothyroxine, Janumet Night medications: Memantine, pravastatin, losartan, famotidine, escitalopram, Janumet Related Data Home Medications Medication Instructions Recorded Confirmed losartan 100 mg tablet 100 mg PO HS High blood pressure 06/26/18 02/02/23 memantine 10 mg tablet 10 mg PO BID Memory 06/26/18 02/02/23 pravastatin 80 mg tablet 80 mg PO HS Cholesterol 06/26/18 02/02/23 famotidine 20 mg tablet 20 mg PO BID Acid Reflux 03/10/20 02/02/23 donepezil 10 mg tablet 10 mg PO DAILY Memory 01/23/23 02/02/23 escitalopram oxalate 20 mg tablet 20 mg PO DAILY Mood 01/23/23 02/02/23 levothyroxine 88 mcg tablet 88 mcg PO DAILY Thyroid 01/23/23 02/02/23 sitagliptin phosphate 50 1 tab PO BID Diabetes 01/23/23 02/02/23 mg-metformin 1,000 mg tablet (Janumet) Allergies Allergy/AdvReac Type Severity Reaction Status Date / Time aspirin [ASPIRIN] Allergy Unknown Verified 01/07/21 20:30 hydroxyzine [HYDROXYZINE] Allergy Unknown Verified 01/07/21 20:30 meperidine [From DEMEROL] Allergy Unknown Verified 01/07/21 20:30 rosuvastatin [From CRESTOR] Allergy Unknown Verified 01/07/21 20:30 [facility] Disclaimer: The information contained in this section may have been updated after the patient was seen, as this information can be updated by other users. Medical History Afib Anxiety COVID-19 Diabetes mellitus, type 2 Hyperlipidemia Hypertension Rotator cuff arthropathy of both shoulders Subdural hematoma Surgical History History of appendectomy History of cholecystectomy History of hysterectomy Previous back surgery Total knee replacement status Social History Smoking Status: Never smoker alcohol intake: never current occupational status: retired Travel in the last 8 weeks: None household members: spouse housing: house current occupational exposures/hazards: No caffeine: Yes ROS Obtained: Yes unobtainable due to mental status Physical Exam General General appearance: obtunded Comment: Somnolent, arouses to voice Head Head exam: atraumatic and normocephalic Eye Eye exam: Present normal appea
--- NOTE | 2023-02-02 01:27 | PC.NURSE ---
Turned position and garfield care provided. Noted non-blancheable area to coccyx, thought to have occurred during day today while she reportedly (according to ) sat in chair for more than 12 hours without moving. MD notified of reddened area, but no new orders given at this time. Turned and repositioned using pillows to alleviate pressure.
[2023-02-02 01:36] LABS: Microscopic, Urine URINE MICROSCOPIC (MICROSCOPIC)
[2023-02-02 01:38] LABS: Appearance,Urine CLEAR (Clear); Bilirubin,Urine Negative (Negative); Blood, Urine Negative (Negative); Color,Urine YELLOW (Yellow); Glucose,Urine (UA) Negative (Negative); Ketones,Urine TRACE (Negative); Leukocyte Esterase,Urine Negative (Negative); Nitrate,Urine Negative (Negative); PH,Urine 5.5 (5.0-8.5); Protein,Urine TRACE (Negative); Specific Gravity, Urine 1.025 (1.005-1.030); Urobilinogen,Urine 0.2 EU/dl (0.2)
[2023-02-02 01:39] LABS: Basophils % 0.3 % (0.1-2.0); Eosinophils # 0.1 K/mm3 (0.0-0.4); Eosinophils % 0.9 % (0.1-12.0); Hematocrit 39.4 % (37.0-47.0); Hemoglobin 12.9 g/dL (12.2-16.2); Lymphocytes # 0.7 K/mm3 (0.7-4.5); Lymphocytes % 6.8 % (10-50); Mean Corpuscular HGB Conc 32.7 g/dL (31.8-35.4); Mean Corpuscular Volume 88.9 fl (81-99); Monocytes # 0.4 K/mm3 (0.1-1.0); Monocytes % 3.9 % (1.7-9.3); Neutrophils # 9.1 K/mm3 (1.8-7.8); Platelet Count 276 K/mm3 (142-424); Red Blood Count 4.44 M/mm3 (4.20-5.40); Red Cell Distribution Width 16.1 % (11.5-17.5); White Blood Count 10.3 K/mm3 (4.8-10.8)
[2023-02-02 01:39] LABS: Occult Blood,Stool Negative (Negative)
[2023-02-02 01:40] LABS: MANUAL DIFFERENTIAL MANUAL DIFFERENTIAL (MANUAL DIFF)
[2023-02-02 01:42] LABS: Alanine Aminotransferase 36 U/L (12-78); Albumin Level 4.5 g/dl (3.5-5.0); Albumin/Globulin Ratio 1.3 (1.1-1.8); Alkaline Phosphatase 81 U/L (38-126); Anion Gap 19.1 mEq/L (5-15); Aspartate Amino Transferase 45 U/L (14-36); Bilirubin,Total 0.5 mg/dl (0.2-1.3); Blood Urea Nitrogen 31 mg/dl (7-17); Calcium 8.9 mg/dl (8.4-10.2); Carbon Dioxide 23 mmol/L (22.0-30.0); Chloride 94 mmol/L (98-107); Estimated Glomerular Filt Rate 21 ml/min (>60); GFR (African American) 25 ML/MIN (>60); Globulin 3.6 g/dL (1.3-3.2); Glucose 171 mg/dl (74-100); Potassium 5.1 mmoL/L (3.5-5.1); Sodium 131 mmol/L (136-145); Total Protein,Serum 8.1 g/dl (6.3-8.2)
[2023-02-02 01:43] LABS: Acetaminophen < 10 ug/ml (10-30); Salicylate < 1.0 mg/dL (2.0-20.0)
[2023-02-02 01:49] LABS: Barbiturates Screen,Urine Negative ng/ml (<200)
[2023-02-02 01:50] LABS: Amphetamine/Metha Screen,Urine Negative ng/ml (<1000)
[2023-02-02 01:51] LABS: Benzodiazepines Screen,Urine Positive ng/ml (<200); Cannabinoid Screen,Urine Negative ng/ml (<50)
[2023-02-02 01:52] LABS: Methadone Screen,Urine Negative ng/ml (<300)
[2023-02-02 01:53] LABS: Cocaine Screen,Urine Negative ng/ml (<300); Phencyclidine Screen,Urine Negative ng/ml (<25)
[2023-02-02 01:54] LABS: Acetone, Serum (Rapid) None Detected (None Detect)
[2023-02-02 01:54] LABS: Opiate Screen,Urine Negative ng/ml (<300)
[2023-02-02 01:55] LABS: VBG Base Excess -5.7 mmol/L (-2.4-2.3); VBG HCO3 21.1 mmol/L (23-30); VBG Oxygen Saturation 76.9 % (50-70); VBG PCO2 46.3 mmol/L (35-51); VBG PH 7.28 mmol/L (7.31-7.41); VBG Total CO2 22.5 mmol/L (23-27)
[2023-02-02 01:55] LABS: Bacteria,Urine Trace /lpf; Calcium Oxalate Crystals,Urine Trace /lpf
[2023-02-02 01:59] LABS: Lymphocytes % 12 % (10-50); Monocytes % 2 % (2-9); Neutrophils % 86 % (42-76); Platelet Estimate Normal; RBC Morphology Normal; T4 (Thyroxine) 9.2 ug/dl (5.53-11.0); Total Cells Counted 100
[2023-02-02 02:07] LABS: Ammonia < 9 umol/L (9-30)
[2023-02-02 02:08] LABS: Lactic Acid 2.7 mmol/L (0.7-2.1)
[2023-02-02 02:13] LABS: Thyroid Stimulating Hormone 3.18 uIU/mL (0.465-4.68)
--- NOTE | 2023-02-02 02:19 | PC.NURSE ---
OBSERVATION ADMISSION TO 209 WITH DX OF EDU TO SERVICE OF DR. DUEÑAS TO [facility].
--- NOTE | 2023-02-02 02:31 | PC.NURSE ---
speaking with rohini at this time
--- NOTE | 2023-02-02 02:35 | PC.NURSE ---
speaking with dr robles re: ct findings
--- NOTE | 2023-02-02 02:37 | PC.NURSE ---
[id number] RECEIVED PHONE REPORT FROM THERESA RN/ED NURSE. PATIENT IS 77 YO FEMALE. ADMISSION DIAGNOSIS: AMS/EDU/METABOLIC ACIDOSIS. TO TRANSFER BY STRETCHER. SPOUSE PRESENT
--- NOTE | 2023-02-02 02:40 | PC.NURSE ---
Report given to Trevor galan RN
--- NOTE | 2023-02-02 03:11 | PC.NURSE ---
pt arrived to floor via stretcher @2037
[2023-02-02 05:57] LABS: Reflex Lactic Add Lactic Reflex
--- NOTE | 2023-02-02 08:43 | EXP.HP ---
History of Present Illness *Admission Date: 02/02/23 *Reason for visit:: Mental status change *History of present illness: HPI narrative: This patient is a 77-year-old female with a history of memory impairment, hypertension, diabetes, and hypothyroidism presented to the emergency department for evaluation with concern for altered mental status. According to EMS, the patient's had told them that she fell asleep in her, and around 1130 this morning, 14 hours ago at this point. He noted to EMS that she has difficulty sleeping, so he was letting her sleep. She did not wake up, so he tried to wake her up later this evening to get her to go to bed, but she would open her eyes but not respond. This is an acute change from her baseline mental status, and she is normally communicative without difficulty. According to EMS, patient will not verbally respond but does open her eyes to voice. They note that fingerstick blood glucose was 211. They note vital signs were stable in route. No other concerns noted at this time. Patient does not contribute to history given altered mental status. Upon arrival, family notes that they are concerned she may have taken her medications twice. Above notes per ER physician. History as above. Patient improved vis-?-vis mental status in the ER, but work-up ensued which revealed essentially normal labs including thyroid studies, ammonia levels and very mild hyponatremia. Imaging of CT of head showed new subacute temporal infarct. This was compared to an MRI from her previous admission for mental status changes January 23. Given this issue and her mental status changes it was deemed appropriate for admission for further evaluation and medication adjustment. The patient this morning is much more awake, and tells me that she has been taking her medication but does not take antiplatelet therapy at home. Has a history of a fall with a subdural hematoma in the past [facility] Disclaimer: The information contained in this section may have been updated after the patient was seen, as this information can be updated by other users. Medical History Afib Anxiety COVID-19 Diabetes mellitus, type 2 Hyperlipidemia Hypertension Rotator cuff arthropathy of both shoulders Subdural hematoma Surgical History History of appendectomy History of cholecystectomy History of hysterectomy Previous back surgery Total knee replacement status Social History (Updated 02/02/23 @ 03:50 by Laura Staples RN) Smoking Status: Never smoker alcohol intake: never current occupational status: retired Travel in the last 8 weeks: None household members: spouse housing: house current occupational exposures/hazards: No caffeine: Yes Review of Systems Review of Systems Review of systems:: pertinent systems reviewed and negative unless documented below Meds Home Medications and Allergies Home Medications Medication Instructions Recorded Confirmed Type losartan 100 mg tablet 100 mg PO HS High blood pressure 06/26/18 02/02/23 History memantine 10 mg tablet 10 mg PO BID Memory 06/26/18 02/02/23 History pravastatin 80 mg tablet 80 mg PO HS Cholesterol 06/26/18 02/02/23 History famotidine 20 mg tablet 20 mg PO BID Acid Reflux 03/10/20 02/02/23 History donepezil 10 mg tablet 10 mg PO DAILY Memory 01/23/23 02/02/23 History escitalopram oxalate 20 mg tablet 20 mg PO DAILY Mood 01/23/23 02/02/23 History levothyroxine 88 mcg tablet 88 mcg PO DAILY Thyroid 01/23/23 02/02/23 History sitagliptin phosphate 50 1 tab PO BID Diabetes 01/23/23 02/02/23 History mg-metformin 1,000 mg tablet (Lars) New Prescriptions to Start Prescriptions: Allergies Allergy/AdvReac Type Severity Reaction Status Date / Time aspirin [ASPIRIN] Allergy Unknown Verified 01/07/21 20:30 hydroxyzine [HYDROXYZINE] Allerg
--- NOTE | 2023-02-02 09:09 | HMH.PHAINT1 ---
Pharmacy Intervention Comments: MEDICATION RECONCILIATION COMPLETE USING LIST FROM [facility] DISCHARGE (01/24/23) AND EXTERNAL PHARMACY FILL HISTORY.
--- OUTSIDE RECORDS SUMMARY | 2023-02-02 13:14 | XMS_ITS | Clinical Summary ---
Author Name Unknown Address [address] [place] [address] Phone Organization [facility] Address [address] [place] [address] Phone Care Team Providers Care Real Estate Representative Name Role Phone Velvet ROY, Emanuel Baron [ ] Conditions or Problems Problem Name Problem Code Onset Date Status Entry Date Provider Comment Standard Description Annotate Nausea 485960333 (SNOMED CT) 05/09 Active 05/09 Emanuel Verdin MD Nausea ELEVATED CRP R79.82 (ICD-10-CM ) 06/07 Active 06/07 Sarika L Elevated C-reactive protein (CRP) ELEVATED SEDIMENTATION RATE 880682626 (SNOMED CT) 06/07 Active 06/07 Sarika L Erythrocyte sedimentation rate above reference range Obesity 521112133 (SNOMED CT) 05/03 Active 05/03 Tiesha Burns Obesity Diabetes mellitus type II, not stated as uncontrolled E11.9 (ICD-10-CM ) 05/03 Active 05/03 Tiesha Burns Type 2 diabetes mellitus without complications
--- NOTE | 2023-02-02 13:51 | HMH.PTEV ---
Physical Therapy Evaluation Rehab PT IP Evaluation Start: 02/02/23 08:40 Freq: ONCE Status: Active Protocol: Document 02/02/23 13:36 HWADE (Rec: 02/02/23 13:50 HWADE [id number]) Subjective/History History History Pt is a 77 year old female that presented to [facility] ED via EMS due to concerns for AMS. EMS reported that the pt reportedly fell asleep in her chair around 11am yesterday, after a few hours the pt's attempted to wake her up but was unable to. Pt was able to open her eyes but would not respond, at that point EMS was called. EMS reported that fingerstick blood glucose was 211. They noted that vital signs were stable in route. Upon arrival, family noted that they are concerned she may have taken her medications twice. While in ED, pt's mentation improved and work-up revealed essentially normal labs. CT of head revealed new subacute temporal infarct. Pt was admitted for further evaluation and medication adjustment. PMH: memory impairment, HTN, diabetes, hypothyroidism Subjective Subjective Pt presents L sidelying in bed , pleasant and agreeable to PT initial evaluation. Pt reports 8/10 sacral pain at rest. Subjective history provided by pt and Abdullahi. Pt AO to name, birthday and year. Pt reports that she lives at home with her in a [facility] with 1 JUNI. Pt reports that her assists with some household tasks but normally she is independent. Pt reports that she has a RW at home but does not use it. Pt denies reports of falls at home.
[2023-02-02 16:41] LABS: Basophils % 0.1 % (0.1-2.0); Eosinophils # 0.1 K/mm3 (0.0-0.4); Hematocrit 33.7 % (37.0-47.0); Hemoglobin 11.7 g/dL (12.2-16.2); Lymphocytes # 1.4 K/mm3 (0.7-4.5); Lymphocytes % 14.8 % (10-50); Mean Corpuscular HGB Conc 34.6 g/dL (31.8-35.4); Mean Corpuscular Hemoglobin 30.1 pg (27.0-31.2); Mean Platelet Volume 7.6 fl (7.4-10.4); Monocytes # 0.7 K/mm3 (0.1-1.0); Monocytes % 6.9 % (1.7-9.3); Neutrophils # 7.4 K/mm3 (1.8-7.8); Neutrophils % 77.3 % (37.0-80.0); Platelet Count 248 K/mm3 (142-424); Red Blood Count 3.88 M/mm3 (4.20-5.40); Red Cell Distribution Width 16.2 % (11.5-17.5); White Blood Count 9.6 K/mm3 (4.8-10.8)
[2023-02-02 16:44] LABS: Chloride 101 mmol/L (98-107); Potassium 3.9 mmoL/L (3.5-5.1); Sodium 135 mmol/L (136-145)
[2023-02-02 16:47] LABS: Blood Urea Nitrogen 22 mg/dl (7-17); Creatinine Clearance Estimated 44 mL/min (50-200); Estimated Glomerular Filt Rate 40 ml/min (>60); GFR (African American) 48 ML/MIN (>60)
[2023-02-02 16:48] LABS: Anion Gap 11.9 mEq/L (5-15); Calcium 8.5 mg/dl (8.4-10.2); Carbon Dioxide 26 mmol/L (22.0-30.0); Glucose 161 mg/dl (74-100); Lactic Acid Follow Up (RFLX 1) 3.3 mmol/L (0.7-2.1)
[2023-02-02 18:36] LABS: Reflex Lactic (2 hrs) Add Lactic Reflex
--- NOTE | 2023-02-02 19:05 | PC.NURSE ---
Patient has no complaints of pain. Patient vital signs stable.
[2023-02-03] VITALS: BP 178/82; PULSE 78; RESP 16; TEMP 37.1; O2SAT 94
[2023-02-03 04:00] VITALS: BP 166/81; PULSE 80; RESP 18; TEMP 36.9; O2SAT 96; BMI 31.1
--- NOTE | 2023-02-03 05:14 | PC.NURSE ---
patient has had a great night. has been able to rest well through the night. Patient remains somewhat confused. RN will ask if orientation questions and patient will answer correctly one time then RN will ask again later on and patient will answer incorrectly. Patient has not complained of pain or SOB. Patient remains with carmichael for accurate I&O. no other issues noted by patient
[2023-02-03 06:39] LABS: Chloride 100 mmol/L (98-107); Sodium 133 mmol/L (136-145)
[2023-02-03 06:40] LABS: Potassium 4.3 mmoL/L (3.5-5.1)
[2023-02-03 06:41] LABS: Basophils % 0.3 % (0.1-2.0); Eosinophils # 0.1 K/mm3 (0.0-0.4); Eosinophils % 1.7 % (0.1-12.0); Hematocrit 33.7 % (37.0-47.0); Hemoglobin 11.3 g/dL (12.2-16.2); Lymphocytes # 1.5 K/mm3 (0.7-4.5); Lymphocytes % 17.5 % (10-50); Mean Corpuscular HGB Conc 33.6 g/dL (31.8-35.4); Mean Corpuscular Hemoglobin 28.8 pg (27.0-31.2); Mean Corpuscular Volume 85.9 fl (81-99); Mean Platelet Volume 7.3 fl (7.4-10.4); Monocytes # 0.5 K/mm3 (0.1-1.0); Monocytes % 6.3 % (1.7-9.3); Neutrophils # 6.1 K/mm3 (1.8-7.8); Neutrophils % 74.3 % (37.0-80.0); Platelet Count 242 K/mm3 (142-424); Red Blood Count 3.92 M/mm3 (4.20-5.40); Red Cell Distribution Width 15.9 % (11.5-17.5); White Blood Count 8.3 K/mm3 (4.8-10.8)
[2023-02-03 06:42] LABS: Blood Urea Nitrogen 17 mg/dl (7-17); Creatinine Clearance Estimated 57 mL/min (50-200); Estimated Glomerular Filt Rate 61 ml/min (>60); GFR (African American) 74 ML/MIN (>60)
[2023-02-03 06:43] LABS: Anion Gap 8.3 mEq/L (5-15); Calcium 8.2 mg/dl (8.4-10.2); Carbon Dioxide 29 mmol/L (22.0-30.0); Glucose 139 mg/dl (74-100)
[2023-02-03 07:43] VITALS: BP 199/79; PULSE 85; RESP 20; TEMP 36.5; O2SAT 96
--- NOTE | 2023-02-03 08:49 | SW/DCPLANNER ---
Addendum entered by Columba Cook 02/03/23 10:49: Selene w/ [facility] stated that services will begin this week for this patient. Original Note: I spoke w/ patient and her regarding plans once medically stable for discharge. Patient resides at home w/ her husbands that is able to assist her at home. PT evalutaed patient and recommended returning home w/home health services. Patient prefers to use [facility]: patient information/order will be faxed this AM. Patient will discharge home later today.
--- NOTE | 2023-02-03 08:53 | EXP.DC.SUM ---
General Admission date:: 02/02/23 Discharge date: 02/03/23 HPI HPI HPI: HPI narrative: This patient is a 77-year-old female with a history of memory impairment, hypertension, diabetes, and hypothyroidism presented to the emergency department for evaluation with concern for altered mental status. According to EMS, the patient's had told them that she fell asleep in her, and around 1130 this morning, 14 hours ago at this point. He noted to EMS that she has difficulty sleeping, so he was letting her sleep. She did not wake up, so he tried to wake her up later this evening to get her to go to bed, but she would open her eyes but not respond. This is an acute change from her baseline mental status, and she is normally communicative without difficulty. According to EMS, patient will not verbally respond but does open her eyes to voice. They note that fingerstick blood glucose was 211. They note vital signs were stable in route. No other concerns noted at this time. Patient does not contribute to history given altered mental status. Upon arrival, family notes that they are concerned she may have taken her medications twice. Above notes per ER physician. History as above. Patient improved vis-?-vis mental status in the ER, but work-up ensued which revealed essentially normal labs including thyroid studies, ammonia levels and very mild hyponatremia. Imaging of CT of head showed new subacute temporal infarct. This was compared to an MRI from her previous admission for mental status changes January 23. Given this issue and her mental status changes it was deemed appropriate for admission for further evaluation and medication adjustment. The patient this morning is much more awake, and tells me that she has been taking her medication but does not take antiplatelet therapy at home. Has a history of a fall with a subdural hematoma in the past Hospital Course Hospital Course Hospital Course: Patient was admitted, CT scan findings were noted, patient was begun on antiplatelet therapy, she improved over the next 12 hours. PT evaluated her yesterday, felt that she would do well with independent status at home as long as there was 24-hour care from her which there will be. Discussed situation with her and her this morning. They are agreeable to go home with home health evaluation. We will start aspirin 81 mg daily given her stroke. I will see her on in my office for further evaluation. Blood pressures been high in the hospital, I will have the monitor this twice daily and we will adjust therapy on if she remains above goal on outpatient examination. Exam Data for Last 24 hours Vital signs and Labs for Last 24 Hours: Temp Pulse Resp BP Pulse Ox O2 Del Method 97.7 F 85 20 199/79 H 96 Room Air 02/03/23 07:43 02/03/23 07:43 02/03/23 07:43 02/03/23 07:43 02/03/23 07:43 02/03/23 07:43 Laboratory Results - last 24 hr 02/02/23 16:14: WBC 9.6, RBC 3.88 L, Hgb 11.7 L, Hct 33.7 L, MCV 87.0, MCH 30.1, MCHC 34.6, RDW 16.2, Plt Count 248, MPV 7.6, Neut % (Auto) 77.3, Lymph % (Auto) 14.8, [place] % (Auto) 6.9, Eos % (Auto) 1.0, Baso % (Auto) 0.1, Neut # (Auto) 7.4, Lymph # (Auto) 1.4, [place] # (Auto) 0.7, Eos # (Auto) 0.1, Baso # (Auto) 0.0, Sodium 135 L, Potassium 3.9 D, Chloride 101, Carbon Dioxide 26, Anion Gap 11.9, BUN 22 H D, Creatinine 1.30 H D, Estimated Creat Clear 44, Estimated GFR 40 L, Est GFR ( Amer) 48 L D, Glucose 161 H, Lactate 3.3 H, Calcium 8.5 02/02/23 19:25: Lactate 4.0 H 02/03/23 06:03: WBC 8.3, RBC 3.92 L, Hgb 11.3 L, Hct 33.7 L, MCV 85.9, MCH 28.8, MCHC 33.6, RDW 15.9, Plt Count 242, MPV 7.3 L, Neut % (Auto) 74.3, Lymph % (Auto) 17.5, [place] % (Auto) 6.3, Eos % (Auto) 1.7, Baso % (Auto) 0.3, Neut # (Auto) 6.1, Lymph # (Auto) 1.5, [place] # (Auto) 0.5, Eos # (Auto) 0.1, Baso # (Auto) 0.0, Sodium 133 L, Potassium 4.3, Chloride 100, Carbon Dioxide 29, Anion Gap 8.3, BUN 17, Creatinine 0
--- NOTE | 2023-02-03 09:11 | PC.NURSE ---
PT/OT AT BEDSIDE FOR EVAL.
--- NOTE | 2023-02-03 09:26 | HMH.OTEV ---
OT Inpatient Evaluation Rehab OT IP Evaluation Start: 02/02/23 08:40 Freq: ONCE Status: Active Protocol: Document 02/03/23 09:23 [facility] (Rec: 02/03/23 09:26 [facility] [id number]) Rehab OT IP Assessment Subjective History Pt oriented x 4 on arrival. Pt agreeable to engage in therapy evaluation. Pt admitted on 02/02/23 due to AMS and EDU. This patient is a 77-year-old female with a history of memory impairment, hypertension, diabetes, and hypothyroidism presented to the emergency department for evaluation with concern for altered mental status. According to EMS, the patient' s had told them that she fell asleep in her, and around 1130 this morning, 14 hours ago at this point. He noted to EMS that she has difficulty sleeping, so he was letting her sleep. She did not wake up, so he tried to wake her up later this evening to get her to go to bed, but she would open her eyes but not respond. This is an acute change from her baseline mental status, and she is normally communicative without difficulty. Prior to being in the hospital , pt lived at home with her . Pt was independent with all ADLs and IADLs. She did not require any type of AE during daily activities. Pt still drove at times when needed. Subjective I am feeling better now. Objective Patient Orientation Person,Place,Birthday,Month Upper Extremity Gross ROM WFL Bed Mobility bed mobility-scooting,bed mobility - supine/sit Assist Level Supervision/Stand by Transfer Training Sit/Stand Transfer Assist Level Supervision/Stand by Chair Transfer Ability Supervision/Stand by Chair Transfer Technique Sit to/from Ambulatory
--- NOTE | 2023-02-04 15:20 | CARE MANAGER ---
Called and spoke with patient regarding recent discharge. Patient stated that she is doing well, she has started her new medication, and was aware of her scheduled f/u appt. No concerns voiced at time of call.
== END 2023-02-03 10:01 | disposition home health service (06) | DRG 65 ==
LOC: ER 02:13 → 2ND 08:40
PROVIDERS: Admitting Provider Internal Medicine Adolescent Medicine; Emergency Provider Emergency Medicine; PCP Internal Medicine Adolescent Medicine; Visit Provider Internal Medicine Adolescent Medicine
DX: I63.89 Other cerebral infarction (principal); N17.9 Acute kidney failure, unspecified; E11.9 Type 2 diabetes mellitus without complications; R41.3 Other amnesia; I10 Essential (primary) hypertension; E03.9 Hypothyroidism, unspecified; E78.5 Hyperlipidemia, unspecified; I48.91 Unspecified atrial fibrillation
CPT/HCPCS: 36415; 51702; 70450; 71045; 80048; 80053; 80305; 80329; 81001; 82009; 82140; 82272; 82803; 83605; 84436; 84443; 85007; 85025; 93005; 97162; 97165; 97530; 99291; G0328

== ENCOUNTER 2023-03-16 12:00 | Emergency (ER) | payer MEDICARE, BC, SELFPAY ==
[2023-03-16 13:50] VITALS: BP 159/88; PULSE 89; RESP 21; TEMP 36.6; O2SAT 97; BMI 26.6
--- NOTE | 2023-03-16 14:13 | EXP.UTC ---
Discharge Plan Disposition Patient Disposition: Home, Self-Care Condition: Good Prescriptions Prescriptions: New nystatin 100,000 unit/gram powder 1 applic topical TID Qty: 60 0RF Rx Instructions: apply under the skin folds of your abdomen clotrimazole [Lotrimin AF (clotrimazole)] 1 % cream 1 applic topical TID Qty: 30 0RF Rx Instructions: apply to lesion on hands as directed No Action pravastatin 80 MG tablet 80 mg PO HS losartan 100 MG tablet 100 mg PO HS memantine 10 MG tablet 10 mg PO BID famotidine 20 MG tablet 20 mg PO BID donepezil 10 mg tablet 10 mg PO DAILY Patient Comments: TAKE 1 TABLET BY MOUTH ONCE DAILY WITH A MEAL levothyroxine 88 mcg tablet 88 mcg PO DAILYDM Patient Comments: TAKE 1 TABLET BY MOUTH ONCE DAILY escitalopram oxalate 20 mg tablet 20 mg PO DAILY Patient Comments: TAKE 1 TABLET BY MOUTH ONCE DAILY Janumet 50-1,000 mg tablet 1 tab PO BIDWMEAL Patient Comments: TAKE 1 TABLET BY MOUTH TWICE DAILY diclofenac sodium 1 % gel 1 g TOPICAL TID Patient Comments: APPLY TOPICALLY THREE TIMES DAILY aspirin 81 mg tablet,delayed release (DR/EC) 81 mg PO DAILY Qty: 90 0RF Referrals Follow up/Referrals: Mindi Montana MD [Referring] - See instructions (Call for appointment) Sravan Anderson MD [Primary Care Provider] - See instructions Activity Restrictions/Add. Instructions Additional Instructions/Restrictions: Apply powder under abdominal folds as directed, may take a folded pillow case and place it there after you apply medication to help keep skin from touching skin Use topical ointment on areas on hands as directed FOllow up with Dermatology for furhter evaluation Straight to ER if any life threatening symptoms Clinical Impressions Clinical Impression: Skin problem Instructions Patient Instructions: Nystatin, Nystatin Topical, Clotrimazole Topical Discharge ED Provider: Yuki Meadows [facility] [place] General Stated complaint: rash, dry skin, insolmnia Mode of Arrival: Ambulatory Source of Information: Patient Limitations: No Limitations Time Seen by Provider: 03/16/23 14:10 Description of Symptoms (Recalled from Triage Doc. by RN): PATIENT C/O DRY, RED, ITCHY AND PAINFUL AREAS TO SKIN AND BODY ACHES HEENT Symptoms (Recalled from RN notes): No Resp Symptoms (Recalled from RN notes): No Skin Symptoms (Recalled from RN notes): Yes MS Symptoms (Recalled from RN notes): No Functional Status (Recalled from RN notes): WNL History of Present Illness Provider Complaint: Patient states that she has a red area under her abdominal fold that is red and irritated States that she has been using some cream on it but it is getting worse also having dry patchy like painful areas on her hands that is peeling and hurts worried they may be infected Related Data Home Medications Medication Instructions Recorded Confirmed losartan 100 mg tablet 100 mg PO HS High blood pressure 06/26/18 02/02/23 memantine 10 mg tablet 10 mg PO BID Memory 06/26/18 02/02/23 pravastatin 80 mg tablet 80 mg PO HS Cholesterol 06/26/18 02/02/23 famotidine 20 mg tablet 20 mg PO BID Acid Reflux 03/10/20 02/02/23 donepezil 10 mg tablet 10 mg PO DAILY Memory 01/23/23 02/02/23 escitalopram oxalate 20 mg tablet 20 mg PO DAILY Mood 01/23/23 02/02/23 levothyroxine 88 mcg tablet 88 mcg PO DAILYDM Thyroid 01/23/23 02/02/23 sitagliptin phosphate 50 1 tab PO BIDWMEAL Diabetes 01/23/23 02/02/23 mg-metformin 1,000 mg tablet (Jandarryl) diclofenac sodium 1 % topical gel 1 g topical TID JOINT PAIN 02/02/23 02/02/23 Previous Rx's Medication Instructions Recorded aspirin 81 mg tablet,delayed 81 mg PO DAILY #90 tabs 02/03/23 release clotrimazole 1 % topical cream 1 applic topical TID #30 grams 03/16/23 (Lotrimin AF (clotrimazole)) nystatin 100,000 unit/gram topical 1 applic topical TID #60 grams 03/16/23 powder
[2023-03-16 14:25] VITALS: BP 159/88; PULSE 89; RESP 21; TEMP 36.6; O2SAT 97
== END 2023-03-16 14:27 | disposition home or self-care (01) ==
PROVIDERS: Emergency Provider Nurse Practitioner; PCP Internal Medicine Adolescent Medicine
DX: L98.9 Disorder of the skin and subcutaneous tissue, unspecified (principal); B36.9 Superficial mycosis, unspecified; E11.9 Type 2 diabetes mellitus without complications; E78.5 Hyperlipidemia, unspecified; I10 Essential (primary) hypertension; Z79.84 Long term (current) use of oral hypoglycemic drugs
CPT/HCPCS: 99212; 99214; G0463

== ENCOUNTER → 2023-03-18 13:27 | Outpatient (CLI) | payer MEDICARE, BC, SELFPAY ==
[2023-03-18 14:20] LABS: Chloride 103 mmol/L (98-107); Potassium 4.1 mmoL/L (3.5-5.1); Sodium 139 mmol/L (136-145)
[2023-03-18 14:22] LABS: Alanine Aminotransferase 33 U/L (12-78); Aspartate Amino Transferase 44 U/L (14-36); Basophils % 0.5 % (0.1-2.0); Bilirubin,Total 0.4 mg/dl (0.2-1.3); Blood Urea Nitrogen 15 mg/dl (7-17); Eosinophils # 0.1 K/mm3 (0.0-0.4); Eosinophils % 1.3 % (0.1-12.0); Estimated Glomerular Filt Rate 40 ml/min (>60); GFR (African American) 48 ML/MIN (>60); Hematocrit 34.2 % (37.0-47.0); Lymphocytes # 1.5 K/mm3 (0.7-4.5); Lymphocytes % 21.9 % (10-50); Mean Corpuscular HGB Conc 32.3 g/dL (31.8-35.4); Mean Corpuscular Hemoglobin 27.8 pg (27.0-31.2); Mean Corpuscular Volume 86.1 fl (81-99); Mean Platelet Volume 7.7 fl (7.4-10.4); Monocytes # 0.4 K/mm3 (0.1-1.0); Monocytes % 5.1 % (1.7-9.3); Neutrophils % 71.3 % (37.0-80.0); Platelet Count 242 K/mm3 (142-424); Red Blood Count 3.97 M/mm3 (4.20-5.40); Red Cell Distribution Width 15.5 % (11.5-17.5)
[2023-03-18 14:23] LABS: Albumin Level 4.5 g/dl (3.5-5.0); Albumin/Globulin Ratio 1.4 (1.1-1.8); Alkaline Phosphatase 97 U/L (38-126); Anion Gap 14.1 mEq/L (5-15); Calcium 8.8 mg/dl (8.4-10.2); Carbon Dioxide 26 mmol/L (22.0-30.0); Globulin 3.2 g/dL (1.3-3.2); Glucose 125 mg/dl (74-100); Total Protein,Serum 7.7 g/dl (6.3-8.2)
[2023-03-18 15:03] LABS: Erythrocyte Sedimentation Rate 40 mm/hr (0-30)
[2023-03-20 22:16] LABS: Antistreptolysin O Ab 216.4 IU/mL (0.0-200.0)
== END ==
PROVIDERS: PCP Internal Medicine Adolescent Medicine; Visit Provider Physician Assistant Medical
DX: L40.0 Psoriasis vulgaris (principal)
CPT/HCPCS: 36415; 80053; 85025; 85651; 86060

== ENCOUNTER 2023-05-13 13:32 | Outpatient (CLI) | payer MEDICARE, BC, SELFPAY ==
--- NOTE | 2023-05-13 13:45 | XR_ITS ---
FINAL REPORT CLINICAL HISTORY: right shoulder pain x 2 yrs FINDINGS: 3 views of the right shoulder were obtained. There is no acute fracture or dislocation. There is widening of the AC joint up to 16 mm concerning for underlying AC joint disruption. There is an ossific fragment anterior to the humeral head measuring 2.6 x 1.6 cm appearing to represent a large loose body. IMPRESSION: Findings concerning for underlying AC joint disruption. Large anterior loose body. Reviewed, Interpreted and Dictated by Benito Gresham MD Transcribed by Ciro Terrazas Authenticated and [facility]
== END 2023-05-13 23:59 | disposition home or self-care (01) ==
LOC: RAD 13:34
PROVIDERS: PCP Internal Medicine Adolescent Medicine; Visit Provider Orthopaedic Surgery
DX: M25.511 Pain in right shoulder (principal)
CPT/HCPCS: 73030

== ENCOUNTER 2023-08-02 14:14 | Emergency (ER) | payer MEDICARE, BC, SELFPAY ==
[2023-08-02] VITALS (11 sets, daily range): BP systolic 145–197; BP diastolic 67–103; PULSE 78–92; RESP 15–20; TEMP 36.8–37.3; O2SAT 94–98; BMI 29.8
[2023-08-02] MEDS: DEXAMETHASONE 4MG TABLET 10 MG PO (14:46)
[2023-08-02] MEDS: ONDANSETRON 4MG ODT 4 MG SL (14:46)
[2023-08-02] MEDS: IBUPROFEN 600 MG TABLET PO (14:46)
[2023-08-02] MEDS: ACETAMINOPHEN 500MG TAB 1000 MG PO (14:46)
--- NOTE | 2023-08-02 15:06 | HMH.EDGENADL ---
Discharge Plan Disposition Patient Disposition: Home, Self-Care Chief Complaint: Weakness Prescriptions Prescriptions: No Action methylprednisolone [Medrol (Tee)] 4 mg tablets,dose pack See Rx Instructions PO PER PKG DIR Qty: 21 0RF Rx Instructions: PO PER PKG DIR pravastatin 80 MG tablet 80 mg PO HS losartan 100 MG tablet 100 mg PO HS memantine 10 MG tablet 10 mg PO BID famotidine 20 MG tablet 20 mg PO BID donepezil 10 mg tablet 10 mg PO DAILY Patient Comments: TAKE 1 TABLET BY MOUTH ONCE DAILY WITH A MEAL levothyroxine 88 mcg tablet 88 mcg PO DAILYDM Patient Comments: TAKE 1 TABLET BY MOUTH ONCE DAILY escitalopram oxalate 20 mg tablet 20 mg PO DAILY Patient Comments: TAKE 1 TABLET BY MOUTH ONCE DAILY Janumet 50-1,000 mg tablet 1 tab PO BIDWMEAL Patient Comments: TAKE 1 TABLET BY MOUTH TWICE DAILY diclofenac sodium 1 % gel 1 g TOPICAL TID Patient Comments: APPLY TOPICALLY THREE TIMES DAILY aspirin 81 mg tablet,delayed release (DR/EC) 81 mg PO DAILY Qty: 90 0RF nystatin 100,000 unit/gram powder 1 applic topical TID Qty: 60 0RF Rx Instructions: apply under the skin folds of your abdomen clotrimazole [Lotrimin AF (clotrimazole)] 1 % cream 1 applic topical TID Qty: 30 0RF Rx Instructions: apply to lesion on hands as directed Referrals Follow up/Referrals: Sravan Anderson MD [Primary Care Provider] - See instructions Activity Restrictions/Add. Instructions Additional Instructions/Restrictions: At this time it was felt you are safe to be discharged home. If new or worsening symptoms please do not hesitate to return the emergency department. Please follow-up with Dr. Anderson over the next week as discussed. Clinical Impressions Clinical Impression: Weakness, Hypomagnesemia, Acute knee pain Discharge ED Provider: Harman Harper General Adult HPI <Usama Zabala MD - Last Filed: 08/02/23 15:25> General Chief complaint: Weakness Stated complaint: weak, sore throat, stomach pain Time Seen by Provider: 08/02/23 14:17 Mode of Arrival: Ambulatory Source of Information: Patient Limitations: No Limitations Description of Symptoms (Recalled from ER Triage Doc. by RN): pt to ed c/o sore throat, decreased appetite, body aches, nausea and hot flashes x2 weeks. pt denies abd tenderness. History of Present Illness HPI narrative: 77-year-old female presenting with sore throat, generalized weakness. Has been going on for about 2 weeks, patient states that she has had decreased p.o. intake secondary to nausea, generalized weakness. Today, patient states that she was so weak she felt like she could not get out of bed. Patient states that the sore throat is not bad during the day, worse at night with associated postnasal drip. Nothing in particular makes it better or worse. Denies fevers, chills, nausea or vomiting, diarrhea, constipation, abdominal pain, urinary symptoms, or any other concerns. Overall very well-appearing. Numerous sick contacts. Please note that above description of symptoms, in this electronic medical record under categorization of recalled from ER triage doctor by RN are reflective of an initial nursing assessment, however, is not reflective of my full history and physical exam that was personally taken and clarified. Consequentially, this preceding description of symptoms, which may include the patient's categorized chief complaint in the EMR, do not reflect my personal clinical impression, and the ultimate description of history of present illness and patient stated complaints should be deferred to this section of the note. Unless stated otherwise or congruent with this section of the note, additional signs, symptoms, or incongruence should be interpreted as inaccurate with my clinical impression. Related Data Home Medications Medication Instructions Recorded Confirmed losartan 100 mg tablet 100 mg PO HS High blood pressure 06/26/18 05/15/23 memantine 10 mg tablet 10 mg PO BID Memory 06/26/18 05/15/23 pravastatin 80 mg tablet 80 mg PO HS Cholesterol 06/26/18 05/15/23 famotidine 20 mg tablet 20 mg PO BID Acid Reflux 03/10/20 05/15/23 donepezil 10 mg tablet 10 mg PO DAILY Memory 01/23/23 05/15/23 escitalopram oxalate 20 mg tablet 20 mg PO DAILY Mood 01/23/23 05/15/23 levothyroxine 88 mcg tablet 88 mcg PO DAILYDM Thyroid 01/23/23 05/15/23 sitagliptin phosphate 50 1 tab PO BIDWMEAL Diabetes 01/23/23 05/15/23 mg-metformin 1,000 mg tablet (Janumebartolome) diclofenac sodium 1 % topical gel 1 g topical TID JOINT PAIN 02/02/23 05/15/23 Previous Rx's Medication Instructions Recorded aspirin 81 mg tablet,delayed 81 mg PO DAILY #90 tabs 02/03/23 release clotrimazole 1 % topical cream 1 applic topical TID #30 grams 03/16/23 (Lotrimin AF (clotrimazole)) nystatin 100,000 unit/gram topical 1 applic topical TID #60 grams 03/16/23 powder methylprednisolone 4 mg tablets in See Rx Instructions PO PER PKG DIR 05/15/23 a dose pack (Medrol (Ete)) #21 tabs Allergies Allergy/AdvReac Type Severity Reaction Status Date / Time hydroxyzine [HYDROXYZINE] Allergy Unknown Unknown Verified 05/15/23 14:11 allergy reaction meperidine [From DEMEROL] Allergy Unknown Unknown Verified 05/15/23 14:11 allergy reaction rosuvastatin [From CRESTOR] Allergy Unknown Unknown Verified 05/15/23 14:11 allergy reaction PFSH <Usama Zabala MD - Last Filed: 08/02/23 15:25> PFS Disclaimer: The information contained in this section may have been updated after the patient was seen, as this information can be updated by other users. 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 Social History Smoking Status: Never smoker alcohol intake: never current occupational status: retired Travel in the last 8 weeks: None household members: spouse housing: house current occupational exposures/hazards: No caffeine: Yes <Usama Zabala MD - Last Filed: 08/02/23 15:25> ROS Obtained: Yes All systems reviewed & no additional complaints except as documented Physical Exam <Usama Zabala MD - Last Filed: 08/02/23 15:25> General General appearance: alert and in no apparent distress Head Head exam: atraumatic and normocephalic Eye Eye exam: Present normal appearance, PERRL and EOMI ENT ENT exam: Present normal oropharynx, mucous membranes moist and other (No evidence of tonsillitis, exudate, pharyngeal erythema, uvular deviation, palatal swelling, trismus, dental abscess, angioedema, or other abnormal gloria pharyngeal findings) Neck Neck exam: Present normal inspection, full ROM and trachea midline Respiratory Respiratory exam: Present normal lung sounds bilaterally; Absent respiratory distress, wheezes, stridor, accessory muscle use or prolonged expiratory phase Cardiovascular Cardiovascular exam: Present regular rate, normal rhythm and systolic murmur (Right upper sternal border) Abdominal Exam Abdominal exam: Present soft; Absent distention, tenderness, guarding, rebound or rigidity Extremities Exam Extremities exam: Absent edema Neurological Exam Neurological exam: Present alert, oriented X3, CN II-XII intact and normal gait; Absent motor sensory deficit Skin Skin exam: Present warm and dry; Absent diaphoresis or erythema Medical Decision Making <Usama Zabala MD - Last Filed: 08/02/23 15:25> Medical Records Medical records reviewed: Yes I reviewed the patient's medical records. Moe Inquiry Pt receiving controlled substance: No Moe was queried for this patient: No Vital Signs: 08/02/23 14:26 08/02/23 14:31 08/02/23 15:01 Temperature 98.2 F Temperature Source Oral Pulse Rate 87 82 Pulse Rate [Left Radial] 89 Respiratory Rate 20 Blood Pressure 159/68 H 145/97 H Blood Pressure [Right Arm] 176/91 H Blood Pressure Mean [Right Arm] 119 02 Sat by Pulse Oximetry 97 96 97 Oxygen Delivery Method Room Air Room Air Room Air 08/02/23 15:39 08/02/23 16:21 08/02/23 16:30 Temperature Temperature Source Pulse Rate 82 87 79 Pulse Rate [Left Radial] Respiratory Rate Blood Pressure 173/71 H 197/79 H 187/67 H Blood Pressure [Right Arm] Blood Pressure Mean [Right Arm] 02 Sat by Pulse Oximetry 97 97 96 Oxygen Delivery Method Room Air Room Air Room Air 08/02/23 17:00 08/02/23 17:30 08/02/23 18:00 Temperature Temperature Source Pulse Rate 82 78 91 H Pulse Rate [Left Radial] Respiratory Rate Blood Pressure 173/103 H 178/75 H 194/88 H Blood Pressure [Right Arm] Blood Pressure Mean [Right Arm] 02 Sat by Pulse Oximetry 96 98 97 Oxygen Delivery Method Room Air Room Air 08/02/23 18:30 Temperature Temperature Source Pulse Rate 86 Pulse Rate [Left Radial] Respiratory Rate Blood Pressure 183/83 H Blood Pressure [Right Arm] Blood Pressure Mean [Right Arm] 02 Sat by Pulse Oximetry 98 Oxygen Delivery Method Lab Data Lab Results 08/02/23 14:40: SARS-CoV-2 (PCR) Not detected, Influenza A Untype (PCR) Not detected, Influenza Type B (PCR) Not detected 08/02/23 15:52: Urine Color Yellow, Urine Appearance Clear, Urine pH 6.0, Ur Specific [place] 1.015, Urine Protein Negative, Urine Glucose (UA) Negative, Urine Ketones Negative, Urine Blood Negative, Urine Nitrate Negative, Urine Bilirubin Negative, Urine Urobilinogen 0.2, Ur Leukocyte Esterase Negative, Urine RBC Occasional, Urine WBC None, Ur Squamous Epith Cells Occasional, Urine Bacteria Trace 08/02/23 17:14: WBC 8.9, RBC 4.56, Hgb 11.7 L, Hct 38.2, MCV 83.8, MCH 25.8 L, MCHC 30.8 L, RDW 16.0, Plt Count 256, MPV 7.4, Neut % (Auto) 76.6, Lymph % (Auto) 16.1, [place] % (Auto) 5.1, Eos % (Auto) 1.5, Baso % (Auto) 0.6, Neut # (Auto) 6.8, Lymph # (Auto) 1.4, [place] # (Auto) 0.5, Eos # (Auto) 0.1, Baso # (Auto) 0.1, Sodium 131 L, Potassium 4.6, Chloride 96 L, Carbon Dioxide 27, Anion Gap 12.6, BUN 24 H, Creatinine 1.50 H, Estimated Creat Clear 37, Estimated GFR 34 L, Est GFR ( Amer) 41 L, Glucose 146 H, Calcium 9.5, Magnesium 1.4 L, Total Bilirubin 0.5, AST 36, ALT 28, Alkaline Phosphatase 98, Total Protein 7.7, Albumin 4.3, Globulin 3.4 H, Albumin/Globulin Ratio 1.3 08/02/23 17:14 08/02/23 17:14 Orders (Tests/Meds): ED MEDICATIONS Discontinued Medications Generic Name Dose Route Start Last Admin Trade Name Freq PRN Reason Stop Dose Admin Acetaminophen 1,000 mg 08/02/23 14:35 08/02/23 14:46 Acetaminophen 500mg Tab PO 08/02/23 14:36 1,000 mg ONCE ONE Administration Dexamethasone 10 mg 08/02/23 14:34 08/02/23 14:46 Dexamethasone 4mg Tablet PO 08/02/23 14:35 10 mg ONCE ONE Administration Lactated Ringer's 1,000 mls @ 999 mls/hr 08/02/23 17:34 08/02/23 17:41 Lactated Ringer's 1000 Ml Bag IV 08/02/23 18:34 999 mls/hr .Q1H1M ONE Administration Magnesium Sulfate 2 gm in 50 mls @ 50 mls/hr 08/02/23 18:02 08/02/23 18:48 Magnesium Sulfate 2gm/50ml Premix IV 08/02/23 19:01 50 mls/hr ONCE ONE Administration Ibuprofen 600 mg 08/02/23 14:35 08/02/23 14:46 Ibuprofen 600 Mg Tablet PO 08/02/23 14:36 600 mg ONCE ONE Administration Ondansetron HCl 4 mg 08/02/23 14:34 08/02/23 14:46 Ondansetron 4mg Odt SL 08/02/23 14:35 4 mg ONCE ONE Administration ORDERS Category Date Time Status Knee XR left 3 views [XR knee LT 3V] Stat Exams 08/02/23 16:17 Completed Knee XR right 3 views [XR knee RT 3V] Stat Exams 08/02/23 16:17 Completed CBC w/Auto Diff [Complete Blood Count Auto Diff] Stat Lab 08/02/23 17:14 Completed CMP [Comprehensive Metabolic Panel] Stat Lab 08/02/23 17:14 Completed MG [Magnesium] Stat Lab 08/02/23 17:14 Completed Rapid PCR Covid and Flu A/B Stat Lab 08/02/23 14:40 Completed UA [Urinalysis and Microscopic] Stat Lab 08/02/23 15:52 Completed Medical Decision Narrative: 77-year-old female presenting with sore throat, generalized weakness. Has been going on for about 2 weeks, patient states that she has had decreased p.o. intake secondary to nausea, generalized weakness. Today, patient states that she was so weak she felt like she could not get out of bed. Patient states that the sore throat is not bad during the day, worse at night with associated postnasal drip. Nothing in particular makes it better or worse. Denies fevers, chills, nausea or vomiting, diarrhea, constipation, abdominal pain, urinary symptoms, or any other concerns. Overall very well-appearing. Numerous sick contacts. History obtained to patient and . On arrival, patient very well-appearing. Lungs are clear to auscultation bilaterally, abdomen soft, nontender, nondistended. Cardiac exam with right upper sternal border murmur that radiates to the carotids, pulses equal and symmetric. Neurologically intact. Afebrile, normotensive, saturating appropriately on room air. Differential includes viral illness, UTI, among others. Patient given oral ibuprofen, acetaminophen, Zofran, Decadron for sore throat. Prior to COVID swab and urine, care handed off to oncmoing <Harman Harper MD - Last Filed: 08/02/23 19:22> Vital Signs: 08/02/23 14:26 08/02/23 14:31 08/02/23 15:01 Temperature 98.2 F Temperature Source Oral Pulse Rate 87 82 Pulse Rate [Left Radial] 89 Respiratory Rate 20 Blood Pressure 159/68 H 145/97 H Blood Pressure [Right Arm] 176/91 H Blood Pressure Mean [Right Arm] 119 02 Sat by Pulse Oximetry 97 96 97 Oxygen Delivery Method Room Air Room Air Room Air 08/02/23 15:39 08/02/23 16:21 08/02/23 16:30 Temperature Temperature Source Pulse Rate 82 87 79 Pulse Rate [Left Radial] Respiratory Rate Blood Pressure 173/71 H 197/79 H 187/67 H Blood Pressure [Right Arm] Blood Pressure Mean [Right Arm] 02 Sat by Pulse Oximetry 97 97 96 Oxygen Delivery Method Room Air Room Air Room Air 08/02/23 17:00 08/02/23 17:30 08/02/23 18:00 Temperature Temperature Source Pulse Rate 82 78 91 H Pulse Rate [Left Radial] Respiratory Rate Blood Pressure 173/103 H 178/75 H 194/88 H Blood Pressure [Right Arm] Blood Pressure Mean [Right Arm] 02 Sat by Pulse Oximetry 96 98 97 Oxygen Delivery Method Room Air Room Air 08/02/23 18:30 Temperature Temperature Source Pulse Rate 86 Pulse Rate [Left Radial] Respiratory Rate Blood Pressure 183/83 H Blood Pressure [Right Arm] Blood Pressure Mean [Right Arm] 02 Sat by Pulse Oximetry 98 Oxygen Delivery Method Lab Data Lab Results 08/02/23 14:40: SARS-CoV-2 (PCR) Not detected, Influenza A Untype (PCR) Not detected, Influenza Type B (PCR) Not detected 08/02/23 15:52: Urine Color Yellow, Urine Appearance Clear, Urine pH 6.0, Ur Specific [place] 1.015, Urine Protein Negative, Urine Glucose (UA) Negative, Urine Ketones Negative, Urine Blood Negative, Urine Nitrate Negative, Urine Bilirubin Negative, Urine Urobilinogen 0.2, Ur Leukocyte Esterase Negative, Urine RBC Occasional, Urine WBC None, Ur Squamous Epith Cells Occasional, Urine Bacteria Trace 08/02/23 17:14: WBC 8.9, RBC 4.56, Hgb 11.7 L, Hct 38.2, MCV 83.8, MCH 25.8 L, MCHC 30.8 L, RDW 16.0, Plt Count 256, MPV 7.4, Neut % (Auto) 76.6, Lymph % (Auto) 16.1, [place] % (Auto) 5.1, Eos % (Auto) 1.5, Baso % (Auto) 0.6, Neut # (Auto) 6.8, Lymph # (Auto) 1.4, [place] # (Auto) 0.5, Eos # (Auto) 0.1, Baso # (Auto) 0.1, Sodium 131 L, Potassium 4.6, Chloride 96 L, Carbon Dioxide 27, Anion Gap 12.6, BUN 24 H, Creatinine 1.50 H, Estimated Creat Clear 37, Estimated GFR 34 L, Est GFR ( Amer) 41 L, Glucose 146 H, Calcium 9.5, Magnesium 1.4 L, Total Bilirubin 0.5, AST 36, ALT 28, Alkaline Phosphatase 98, Total Protein 7.7, Albumin 4.3, Globulin 3.4 H, Albumin/Globulin Ratio 1.3 Orders (Tests/Meds): ED MEDICATIONS Discontinued Medications Generic Name Dose Route Start Last Admin Trade Name Freq PRN Reason Stop Dose Admin Acetaminophen 1,000 mg 08/02/23 14:35 08/02/23 14:46 Acetaminophen 500mg Tab PO 08/02/23 14:36 1,000 mg ONCE ONE Administration Dexamethasone 10 mg 08/02/23 14:34 08/02/23 14:46 Dexamethasone 4mg Tablet PO 08/02/23 14:35 10 mg ONCE ONE Administration Lactated Ringer's 1,000 mls @ 999 mls/hr 08/02/23 17:34 08/02/23 17:41 Lactated Ringer's 1000 Ml Bag IV 08/02/23 18:34 999 mls/hr .Q1H1M ONE Administration Magnesium Sulfate 2 gm in 50 mls @ 50 mls/hr 08/02/23 18:02 08/02/23 18:48 Magnesium Sulfate 2gm/50ml Premix IV 08/02/23 19:01 50 mls/hr ONCE ONE Administration Ibuprofen 600 mg 08/02/23 14:35 08/02/23 14:46 Ibuprofen 600 Mg Tablet PO 08/02/23 14:36 600 mg ONCE ONE Administration Ondansetron HCl 4 mg 08/02/23 14:34 08/02/23 14:46 Ondansetron 4mg Odt SL 08/02/23 14:35 4 mg ONCE ONE Administration ORDERS Category Date Time Status Knee XR left 3 views [XR knee LT 3V] Stat Exams 08/02/23 16:17 Completed Knee XR right 3 views [XR knee RT 3V] Stat Exams 08/02/23 16:17 Completed CBC w/Auto Diff [Complete Blood Count Auto Diff] Stat Lab 08/02/23 17:14 Completed CMP [Comprehensive Metabolic Panel] Stat Lab 08/02/23 17:14 Completed MG [Magnesium] Stat Lab 08/02/23 17:14 Completed Rapid PCR Covid and Flu A/B Stat Lab 08/02/23 14:40 Completed UA [Urinalysis and Microscopic] Stat Lab 08/02/23 15:52 Completed Medical Decision Narrative: 77-year-old female presenting with sore throat, generalized weakness. Has been going on for about 2 weeks, patient states that she has had decreased p.o. intake secondary to nausea, generalized weakness. Today, patient states that she was so weak she felt like she could not get out of bed. Patient states that the sore throat is not bad during the day, worse at night with associated postnasal drip. Nothing in particular makes it better or worse. Denies fevers, chills, nausea or vomiting, diarrhea, constipation, abdominal pain, urinary symptoms, or any other concerns. Overall very well-appearing. Numerous sick contacts. History obtained to patient and . On arrival, patient very well-appearing. Lungs are clear to auscultation bilaterally, abdomen soft, nontender, nondistended. Cardiac exam with right upper sternal border murmur that radiates to the carotids, pulses equal and symmetric. Neurologically intact. Afebrile, normotensive, saturating appropriately on room air. Differential includes viral illness, UTI, among others. Patient given oral ibuprofen, acetaminophen, Zofran, Decadron for sore throat. Prior to COVID swab and urine, care handed off to oncmoing. Harman Harper: Upon assumption of care patient was hemodynamically stable, initial workup reviewed by me, viral swab negative, urinalysis interpreted by me not consistent with infection. Upon repeat evaluation patient was complaining of generalized weakness and knee pain over the last few days. There is no redness or swelling, patient has bilateral knee surgeries at baseline. Given this workup will be broadened with hematologic labs, plain films of the bilateral knees. Workup reviewed by me, hematologic labs are remarkable for hypomagnesemia which will be repleted, stable CKD and stable hyponatremia. Plain films of the knees show no acute pathology. Patient has no overlying erythema and has preserved range of motion therefore no concern for septic arthritis at this time. Upon repeat evaluation patient was ambulatory at bedside. Given this patient is appropriate for discharge at this time we will follow-up with Dr. Anderson over the next week. Critical Care <Usama Zabala MD - Last Filed: 08/02/23 15:25> Critical Care Time Critical Care Time: No
[2023-08-02 15:14] LABS: Coronavirus 19, PCR Not Detected (NotDetected); Influenza A, PCR Not Detected (NotDetected); Influenza B, PCR Not Detected (NotDetected)
--- NOTE | 2023-08-02 15:30 | PC.NURSE ---
pt was given a warm blanket no other needs at this time, and call light at bs
[2023-08-02 15:56] LABS: Microscopic, Urine URINE MICROSCOPIC (MICROSCOPIC)
[2023-08-02 16:07] LABS: Appearance,Urine CLEAR (Clear); Bilirubin,Urine Negative (Negative); Blood, Urine Negative (Negative); Color,Urine YELLOW (Yellow); Glucose,Urine (UA) Negative (Negative); Ketones,Urine Negative (Negative); Leukocyte Esterase,Urine Negative (Negative); Nitrate,Urine Negative (Negative); Protein,Urine Negative (Negative); Specific Gravity, Urine 1.015 (1.005-1.030); Urobilinogen,Urine 0.2 EU/dl (0.2)
--- NOTE | 2023-08-02 16:17 | XR_ITS ---
PROCEDURE INFORMATION: Exam: XR Right Knee Exam date and time: 08/02/2023 6:03 PM Age: 77 years old Clinical indication: Pain; Knee; Right; Additional info: Atraumatic pain TECHNIQUE: Imaging protocol: Radiologic exam of the right knee. Views: 3 views. COMPARISON: No relevant prior studies available. FINDINGS: Bones/joints: Status post right total knee arthroplasty. Hardware is in expected position. No periprosthetic fracture or evidence of hardware loosening. Soft tissues: Normal. IMPRESSION: Status post right total knee arthroplasty without evidence of a complication.
--- NOTE | 2023-08-02 16:17 | XR_ITS ---
PROCEDURE INFORMATION: Exam: XR Left Knee Exam date and time: 08/02/2023 6:03 PM Age: 77 years old Clinical indication: Pain; Knee; Left; Additional info: Atraumatic pain TECHNIQUE: Imaging protocol: Radiologic exam of the left knee. Views: 3 views. COMPARISON: No relevant prior studies available. FINDINGS: Bones/joints: Status post left total knee arthroplasty. Hardware is in expected position. No periprosthetic fracture or evidence of hardware loosening. Soft tissues: Normal. IMPRESSION: Status post left total knee arthroplasty without evidence of a complication.
[2023-08-02 16:25] LABS: RBC,Urine Occasional #/hpf (0-3); Squamous Epithelial Cell,Urine Occasional #/hpf (0-5)
[2023-08-02 16:26] LABS: Bacteria,Urine Trace /lpf
[2023-08-02 17:24] LABS: Basophils # 0.1 K/mm3 (0-0.2); Basophils % 0.6 % (0.1-2.0); Eosinophils # 0.1 K/mm3 (0.0-0.4); Eosinophils % 1.5 % (0.1-12.0); Hematocrit 38.2 % (37.0-47.0); Hemoglobin 11.7 g/dL (12.2-16.2); Lymphocytes # 1.4 K/mm3 (0.7-4.5); Lymphocytes % 16.1 % (10-50); Mean Corpuscular HGB Conc 30.8 g/dL (31.8-35.4); Mean Corpuscular Hemoglobin 25.8 pg (27.0-31.2); Mean Corpuscular Volume 83.8 fl (81-99); Mean Platelet Volume 7.4 fl (7.4-10.4); Monocytes # 0.5 K/mm3 (0.1-1.0); Monocytes % 5.1 % (1.7-9.3); Neutrophils # 6.8 K/mm3 (1.8-7.8); Neutrophils % 76.6 % (37.0-80.0); Platelet Count 256 K/mm3 (142-424); Red Blood Count 4.56 M/mm3 (4.20-5.40); White Blood Count 8.9 K/mm3 (4.8-10.8)
[2023-08-02 17:31] LABS: Chloride 96 mmol/L (98-107); Sodium 131 mmol/L (136-145)
[2023-08-02 17:32] LABS: Potassium 4.6 mmoL/L (3.5-5.1)
[2023-08-02 17:34] LABS: Alanine Aminotransferase 28 U/L (12-78); Albumin Level 4.3 g/dl (3.5-5.0); Albumin/Globulin Ratio 1.3 (1.1-1.8); Alkaline Phosphatase 98 U/L (38-126); Anion Gap 12.6 mEq/L (5-15); Aspartate Amino Transferase 36 U/L (14-36); Bilirubin,Total 0.5 mg/dl (0.2-1.3); Blood Urea Nitrogen 24 mg/dl (7-17); Calcium 9.5 mg/dl (8.4-10.2); Carbon Dioxide 27 mmol/L (22.0-30.0); Creatinine Clearance Estimated 37 mL/min (50-200); Estimated Glomerular Filt Rate 34 ml/min (>60); GFR (African American) 41 ML/MIN (>60); Globulin 3.4 g/dL (1.3-3.2); Glucose 146 mg/dl (74-100); Magnesium 1.4 mg/dl (1.6-2.3); Total Protein,Serum 7.7 g/dl (6.3-8.2)
[2023-08-02] MEDS: LACTATED RINGERS 1000ML 1,000 ML 999 ML IV (17:41)
--- NOTE | 2023-08-02 18:08 | PC.NURSE ---
xray at bs
[2023-08-02] MEDS: MAGNESIUM SULFATE IN WATER 2 GM/50 ML PIGGYBACK IV (18:48)
--- NOTE | 2023-08-02 19:23 | PC.NURSE ---
pt was ambulated with standby assist approximately 50 ft. pt tolerated well, resting comfortably back in the room at this time.
== END 2023-08-02 19:31 | disposition home or self-care (01) ==
PROVIDERS: Emergency Medicine; Emergency Provider Emergency Medicine; PCP Internal Medicine Adolescent Medicine
DX: R53.1 Weakness (principal); E87.1 Hypo-osmolality and hyponatremia; E83.42 Hypomagnesemia; M25.561 Pain in right knee; M25.562 Pain in left knee; R07.0 Pain in throat; E11.9 Type 2 diabetes mellitus without complications; E78.5 Hyperlipidemia, unspecified; I10 Essential (primary) hypertension; Z79.84 Long term (current) use of oral hypoglycemic drugs
CPT/HCPCS: 73562; 80053; 81001; 83735; 85025; 87636; 96365; 99284; J3475

== ENCOUNTER 2023-08-14 14:49 | Emergency (ER) | payer MEDICARE, BC, SELFPAY ==
[2023-08-14] VITALS (8 sets, daily range): BP systolic 145–219; BP diastolic 80–128; PULSE 84–97; RESP 18; TEMP 36.7; O2SAT 88–98; BMI 30.2
[2023-08-14 15:33] LABS: Basophils % 0.3 % (0.1-2.0); Eosinophils % 0.2 % (0.1-12.0); Hematocrit 37.3 % (37.0-47.0); Hemoglobin 12.3 g/dL (12.2-16.2); Lymphocytes # 1.4 K/mm3 (0.7-4.5); Mean Corpuscular Hemoglobin 26.6 pg (27.0-31.2); Mean Corpuscular Volume 80.5 fl (81-99); Mean Platelet Volume 7.4 fl (7.4-10.4); Monocytes # 0.2 K/mm3 (0.1-1.0); Monocytes % 2.3 % (1.7-9.3); Neutrophils # 7.3 K/mm3 (1.8-7.8); Neutrophils % 81.1 % (37.0-80.0); Platelet Count 259 K/mm3 (142-424); Red Blood Count 4.64 M/mm3 (4.20-5.40); Red Cell Distribution Width 15.7 % (11.5-17.5)
[2023-08-14 15:37] LABS: Chloride 97 mmol/L (98-107); Potassium 4.5 mmoL/L (3.5-5.1); Sodium 129 mmol/L (136-145)
[2023-08-14 15:40] LABS: Alanine Aminotransferase 29 U/L (12-78); Albumin Level 4.3 g/dl (3.5-5.0); Albumin/Globulin Ratio 1.2 (1.1-1.8); Alkaline Phosphatase 97 U/L (38-126); Anion Gap 15.5 mEq/L (5-15); Aspartate Amino Transferase 33 U/L (14-36); Bilirubin,Total 0.5 mg/dl (0.2-1.3); Blood Urea Nitrogen 13 mg/dl (7-17); Calcium 9.7 mg/dl (8.4-10.2); Carbon Dioxide 21 mmol/L (22.0-30.0); Creatinine Clearance Estimated 56 mL/min (50-200); Estimated Glomerular Filt Rate 61 ml/min (>60); GFR (African American) 74 ML/MIN (>60); Globulin 3.5 g/dL (1.3-3.2); Glucose 168 mg/dl (74-100); Lactic Acid 2.3 mmol/L (0.7-2.1); Lipase 71 U/L (23-300); Total Protein,Serum 7.8 g/dl (6.3-8.2)
[2023-08-14] MEDS: METOCLOPRAMIDE HCL 10MG/2ML VIAL 10 MG IVP (15:40)
[2023-08-14] MEDS: LACTATED RINGERS 1000ML 1,000 ML 999 ML IV (15:40)
[2023-08-14] MEDS: KETOROLAC 30MG/ML VIAL 15 MG IV (15:40)
--- NOTE | 2023-08-14 15:46 | ED_ITS ---
Discharge Plan Disposition Patient Disposition: Home, Self-Care Prescriptions Prescriptions: New metoclopramide HCl [Reglan] 10 mg tablet 10 mg PO Q6H PRN (Reason: nausea and vomiting) Qty: 20 0RF No Action methylprednisolone [Medrol (Tee)] 4 mg tablets,dose pack See Rx Instructions PO PER PKG DIR Qty: 21 0RF Rx Instructions: PO PER PKG DIR pravastatin 80 MG tablet 80 mg PO HS losartan 100 MG tablet 100 mg PO HS memantine 10 MG tablet 10 mg PO BID famotidine 20 MG tablet 20 mg PO BID donepezil 10 mg tablet 10 mg PO DAILY Patient Comments: TAKE 1 TABLET BY MOUTH ONCE DAILY WITH A MEAL levothyroxine 88 mcg tablet 88 mcg PO DAILYDM Patient Comments: TAKE 1 TABLET BY MOUTH ONCE DAILY escitalopram oxalate 20 mg tablet 20 mg PO DAILY Patient Comments: TAKE 1 TABLET BY MOUTH ONCE DAILY Janumet 50-1,000 mg tablet 1 tab PO BIDWMEAL Patient Comments: TAKE 1 TABLET BY MOUTH TWICE DAILY diclofenac sodium 1 % gel 1 g TOPICAL TID Patient Comments: APPLY TOPICALLY THREE TIMES DAILY aspirin 81 mg tablet,delayed release (DR/EC) 81 mg PO DAILY Qty: 90 0RF nystatin 100,000 unit/gram powder 1 applic topical TID Qty: 60 0RF Rx Instructions: apply under the skin folds of your abdomen clotrimazole [Lotrimin AF (clotrimazole)] 1 % cream 1 applic topical TID Qty: 30 0RF Rx Instructions: apply to lesion on hands as directed Referrals Follow up/Referrals: Gilberto Torres MD [Staff Physician] - See instructions Saundra Crockett APRN [Staff Physician] - See instructions Sravan Anderson MD [Primary Care Provider] - See instructions Activity Restrictions/Add. Instructions Additional Instructions/Restrictions: Call either surgery or gastroenterology to schedule a colonoscopy and abdominal pain evaluation. Maalox [id number] 2-3 times daily can help with gas pains and bloating symptoms. Reglan sent to pharmacy to help with nausea and possible gastroparesis in the setting of diabetes. Call your family doctor to establish care for this visit to the emergency department and schedule follow-up within 48 hours to ensure improvement. If you have any worsening of your condition or any other concerning signs or symptoms, return to the emergency department or your primary care doctor for further evaluation. Clinical Impressions Clinical Impression: Abdominal pain Instructions Patient Instructions: DI for Acute Abdominal Pain Discharge ED Provider: Usama Zabala General Adult HPI General Chief complaint: Abdominal Pain Stated complaint: weak, nauseous Time Seen by Provider: 08/14/23 15:01 Mode of Arrival: Wheelchair Source of Information: Patient Limitations: No Limitations Description of Symptoms (Recalled from ER Triage Doc. by RN): Patient complaint of lower abdomen pain that starte this morning. States that she has been passing a lot of gas and is very nauseated, but denies vomiting. History of Present Illness HPI narrative: Please note that above description of symptoms, in this electronic medical record under categorization of recalled from ER triage doctor by RN are reflective of an initial nursing assessment, however, is not reflective of my full history and physical exam that was personally taken and clarified. Consequentially, this preceding description of symptoms, which may include the patient's categorized chief complaint in the EMR, do not reflect my personal clinical impression, and the ultimate description of history of present illness and patient stated complaints should be deferred to this section of the note. Unless stated otherwise or congruent with this section of the note, additional signs, symptoms, or incongruence should be interpreted as inaccurate with my clinical impression. Related Data Home Medications Medication Instructions Recorded Confirmed losartan 100 mg tablet 100 mg PO HS High blood pressure 06/26/18 05/15/23 memantine 10 mg tablet 10 mg PO BID Memory 06/26/18 05/15/23 pravastatin 80 mg tablet 80 mg PO HS Cholesterol 06/26/18 05/15/23 famotidine 20 mg tablet 20 mg PO BID Acid Reflux 03/10/20 05/15/23 donepezil 10 mg tablet 10 mg PO DAILY Memory 01/23/23 05/15/23 escitalopram oxalate 20 mg tablet 20 mg PO DAILY Mood 01/23/23 05/15/23 levothyroxine 88 mcg tablet 88 mcg PO DAILYDM Thyroid 01/23/23 05/15/23 sitagliptin phosphate 50 1 tab PO BIDWMEAL Diabetes 01/23/23 05/15/23 mg-metformin 1,000 mg tablet (Janumet) diclofenac sodium 1 % topical gel 1 g topical TID JOINT PAIN 02/02/23 05/15/23 Previous Rx's Medication Instructions Recorded aspirin 81 mg tablet,delayed 81 mg PO DAILY #90 tabs 02/03/23 release clotrimazole 1 % topical cream 1 applic topical TID #30 grams 03/16/23 (Lotrimin AF (clotrimazole)) nystatin 100,000 unit/gram topical 1 applic topical TID #60 grams 03/16/23 powder methylprednisolone 4 mg tablets in See Rx Instructions PO PER PKG DIR 05/15/23 a dose pack (Medrol (Tee)) #21 tabs metoclopramide HCl 10 mg tablet 10 mg PO Q6H PRN nausea and 08/14/23 (Reglan) vomiting #20 tabs Allergies Allergy/AdvReac Type Severity Reaction Status Date / Time hydroxyzine [HYDROXYZINE] Allergy Unknown Unknown Verified 05/15/23 14:11 allergy reaction meperidine [From DEMEROL] Allergy Unknown Unknown Verified 05/15/23 14:11 allergy reaction rosuvastatin [From CRESTOR] Allergy Unknown Unknown Verified 05/15/23 14:11 allergy reaction PFSH PFSH Disclaimer: The information contained in this section may have been updated after the patient was seen, as this information can be updated by other users. 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 Social History Smoking Status: Never smoker alcohol intake: never current occupational status: retired Travel in the last 8 weeks: None household members: spouse housing: house current occupational exposures/hazards: No caffeine: Yes ROS Obtained: Yes All systems reviewed & no additional complaints except as documented Physical Exam General General appearance: alert and in no apparent distress Head Head exam: atraumatic and normocephalic Eye Eye exam: Present normal appearance, PERRL and EOMI ENT ENT exam: Present mucous membranes moist Neck Neck exam: Present normal inspection, full ROM and trachea midline Respiratory Respiratory exam: Present normal lung sounds bilaterally; Absent respiratory distress, wheezes, stridor, accessory muscle use or prolonged expiratory phase Cardiovascular Cardiovascular exam: Present regular rate, normal rhythm and other (Hypertensive) Abdominal Exam Abdominal exam: Present soft and tenderness; Absent distention, guarding, rebound, rigidity, Wynne's sign, tenderness at McBurney's Point, bruit or pulsatile mass Abdominal tenderness: Present diffuse and mild Extremities Exam Extremities exam: Absent edema Neurological Exam Neurological exam: Present alert, oriented X3, CN II-XII intact and normal gait; Absent motor sensory deficit Skin Skin exam: Present warm and dry; Absent diaphoresis or erythema Medical Decision Making Medical Records Medical records reviewed: Yes I reviewed the patient's medical records. Moe Inquiry Pt receiving controlled substance: No Moe was queried for this patient: No Vital Signs: 08/14/23 14:50 08/14/23 14:56 08/14/23 15:00 Temperature 98.0 F Temperature Source Oral Pulse Rate 89 85 Pulse Rate [Radial] 89 Respiratory Rate 18 Blood Pressure 199/85 H 219/96 H Blood Pressure [Right Arm] 199/85 H Blood Pressure Mean 92 137 Blood Pressure Mean [Right Arm] 123 Blood Pressure Source [Right Arm] Automatic Cuff Blood Pressure Position [Right Arm] Sitting 02 Sat by Pulse Oximetry 98 98 98 Oxygen Delivery Method Room Air 08/14/23 15:30 08/14/23 16:00 08/14/23 16:30 Temperature Temperature Source Pulse Rate 97 H 97 H 97 H Pulse Rate [Radial] Respiratory Rate Blood Pressure 205/85 H 171/128 H 195/80 H Blood Pressure [Right Arm] Blood Pressure Mean 125 135 118 Blood Pressure Mean [Right Arm] Blood Pressure Source [Right Arm] Blood Pressure Position [Right Arm] 02 Sat by Pulse Oximetry 98 98 98 Oxygen Delivery Method 08/14/23 17:30 Temperature Temperature Source Pulse Rate 84 Pulse Rate [Radial] Respiratory Rate Blood Pressure 145/97 H Blood Pressure [Right Arm] Blood Pressure Mean 129 Blood Pressure Mean [Right Arm] Blood Pressure Source [Right Arm] Blood Pressure Position [Right Arm] 02 Sat by Pulse Oximetry 88 L Oxygen Delivery Method Lab Data Lab Results 08/14/23 15:16: VBG pH 7.44 H, VBG pCO2 32.5 L, VBG pO2 63.3 H, VBG HCO3 21.3 L, VBG Total CO2 22.3 L, VBG O2 Saturation 93.3 H, VBG Base Excess -2.9 L, VBG Lactic Acid 2.8 H 08/14/23 15:20: WBC 9.0, RBC 4.64, Hgb 12.3, Hct 37.3, MCV 80.5 L, MCH 26.6 L, MCHC 33.0, RDW 15.7, Plt Count 259, MPV 7.4, Neut % (Auto) 81.1 H, Lymph % (Auto) 16.0, [place] % (Auto) 2.3, Eos % (Auto) 0.2, Baso % (Auto) 0.3, Neut # (Auto) 7.3, Lymph # (Auto) 1.4, [place] # (Auto) 0.2, Eos # (Auto) 0.0, Baso # (Auto) 0.0, Sodium 129 L, Potassium 4.5, Chloride 97 L, Carbon Dioxide 21 L, A [place] 15.5 H, BUN 13, Creatinine 0.90, Estimated Creat Clear 56, Estimated GFR 61, Est GFR ( Amer) 74, Glucose 168 H, Hemoglobin A1c 6.7 H, Lactate 2.3 H, Calcium 9.7, Total Bilirubin 0.5, AST 33, ALT 29, Alkaline Phosphatase 97, Total Protein 7.8, Albumin 4.3, Globulin 3.5 H, Albumin/Globulin Ratio 1.2, Lipase 71 08/14/23 17:55: Urine Color Yellow, Urine Appearance Clear, Urine pH 6.0, Ur Specific [place] 1.020, Urine Protein 1+, Urine Glucose (UA) Trace, Urine Ketones Negative, Urine Blood Trace-i, Urine Nitrate Negative, Urine Bilirubin Negative, Urine Urobilinogen 0.2, Ur Leukocyte Esterase Negative, Urine RBC Occasional, Urine WBC None, Ur Squamous Epith Cells Occasional, Urine Bacteria Trace 08/14/23 15:20 08/14/23 15:20 Orders (Tests/Meds): ED MEDICATIONS Discontinued Medications Generic Name Dose Route Start Last Admin Trade Name Freq PRN Reason Stop Dose Admin Lactated Ringer's 1,000 mls @ 999 mls/hr 08/14/23 15:14 08/14/23 15:40 Lactated Ringer's 1000 Ml Bag IV 08/14/23 16:14 999 mls/hr .Q1H1M ONE Administration Iopamidol 94 ml 08/14/23 17:27 08/14/23 17:28 Iopamidol-370 (76%);100ml Bottle IV 08/14/23 17:28 94 ml ONCE ONE Administration Irbesartan 300 mg 08/14/23 15:14 08/14/23 16:13 Irbesartan 300mg Tablet PO 08/14/23 15:15 300 mg ONCE ONE Administration Ketorolac Tromethamine 15 mg 08/14/23 15:14 08/14/23 15:40 Ketorolac 30mg/Ml Vial IV 08/14/23 15:15 15 mg ONCE ONE Administration Metoclopramide HCl 10 mg 08/14/23 15:14 08/14/23 15:40 Metoclopramide Hcl 10mg/2ml Vial IVP 08/14/23 15:15 10 mg ONCE ONE Administration Sodium Chloride 40 ml 08/14/23 17:22 08/14/23 17:24 0.9 % Sodium Chloride 50 Ml Vial IV 08/14/23 17:23 40 ml ONCE ONE Administration ORDERS Category Date Time Status CT angio abdomen pelvis Stat Cat Scan 08/14/23 17:05 Completed CBC w/Auto Diff [Complete Blood Count Auto Diff] Stat Lab 08/14/23 15:20 Completed CMP [Comprehensive Metabolic Panel] Stat Lab 08/14/23 15:20 Completed Hemoglobin A1C Stat Lab 08/14/23 15:20 Completed Lactic Acid Stat Lab 08/14/23 15:20 Completed Lipase Stat Lab 08/14/23 15:20 Completed UA [Urinalysis and Microscopic] Stat Lab 08/14/23 17:55 Completed VBG [Venous Blood Gas] Stat RT 08/14/23 15:16 Completed Medical Decision Narrative: 77-year-old female history of hypertension, hyperlipidemia,, anxiety, illness anxiety disorder, diabetes, chronic abdominal pain, appendectomy, cholecystectomy presenting with abdominal pain. Patient states that abdominal pain has been going on for a while, but has gotten worse over the past couple of days. No vomiting, no diarrhea, no fevers or chills, urinary symptoms, vaginal discharge or bleeding. Patient has not taken anything or tried any interventions to make the pain better or worse, does not know of anything that does make it better or worse, it is diffuse, cramping, does not radiate. Able to tolerate p.o. intake without issue. Still producing bowel movements, last bowel movement was today and was normal for her, no straining or blood. This is 1 of multiple visits where patient is concerned about the amount of flatulence without smell she produces. History was obtained via conversation with patient and . On arrival, patient hemodynamically stable, alert, oriented x4, appropriate, GCS 15, moving all extremities spontaneously, pupils equal and reactive to light. Full physical exam performed and significant for very well- appearing patient in no acute distress. Abdomen is soft, nondistended, diffusely and mildly tender. It is distractible. No overlying skin changes or flank tenderness. Cardiopulmonary exam within normal limits, no pulsatile mass, pulses are equal and symmetric bilateral upper and lower extremities. Differential includes gastroparesis, functional abdominal pain, PUD, gastritis, enteritis, gastroenteritis, pancreatitis, SBO, colitis, diverticulitis, nephrolithiasis, UTI, cholecystitis, choledocholithiasis, appendicitis, hepatitis, aortic pathology, mesenteric ischemia among others. Patient was given Toradol, Reglan, IV fluids, irbesartan 300 mg for symptomatic management and correction of underlying abnormalities. Workup independently interpreted and significant for no leukocytosis. pH 7.4, CO2 32, oxygen 63, bicarb 21, lactate 2.8. Chemistry overall nonactionable. Patient's A1c is elevated 6.7 up from 5.9 just a couple months ago. Urinalysis nonconcerning without evidence of UTI. CTA of the abdomen and pelvis without acute intra- abdominal abnormality to explain patient's pain. See radiology read for full review of final results. On reevaluation, patient resting in bed stating she is not feeling much better. Given patient presentation, workup, history, this most likely represents functional abdominal pain in the setting of dehydration. Because patient at baseline without signs or symptoms of clinical decompensation, deemed appropriate for discharge. Results were relayed to patient who voiced understanding and were agreeable to outpatient management and follow up. I discussed my clinical impression with patient and answered all questions. At this time, the evidence for any other entities in the differential is insufficient to warrant any further testing or ED observation. This was explained as well. Advisory was given that persistent or worsening symptoms require further evaluation. I confirmed the understanding of this discussion. Critical Care Critical Care Time Critical Care Time: No
[2023-08-14 16:00] LABS: Hemoglobin A1C 6.7 % (4.0-6.0)
[2023-08-14] MEDS: IRBESARTAN 300MG TABLET 300 MG PO (16:13)
--- NOTE | 2023-08-14 16:14 | PC.NURSE ---
Rounded on pt to see if they had any needs. pt asked for a blanket and one was given to them
[2023-08-14 16:17] LABS: VBG Base Excess -2.9 mmol/L (-2.4-2.3); VBG HCO3 21.3 mmol/L (23-30); VBG Oxygen Saturation 93.3 % (50-70); VBG PCO2 32.5 mmol/L (35-51); VBG PH 7.44 mmol/L (7.31-7.41); VBG PO2 63.3 mmol/L (28-40); VBG Total CO2 22.3 mmol/L (23-27)
[2023-08-14 16:20] LABS: Lactate Venous 2.8 mmol/L (0.4-2.0)
--- NOTE | 2023-08-14 17:05 | CT_ITS ---
PROCEDURE INFORMATION: Exam: CTA Abdomen and Pelvis With Contrast Exam date and time: 08/14/2023 5:21 PM Age: 77 years old Clinical indication: Abdominal pain; Acute; Additional info: Abd pain diffuse TECHNIQUE: Imaging protocol: Computed tomographic angiography of the abdomen and pelvis with contrast. Exam focused on the arteries. 3D rendering (Not supervised by radiologist): MIP and/or 3D reconstructed images were created by the technologist. Radiation optimization: All CT scans at this facility use at least one of these dose optimization techniques: automated exposure control; mA and/or kV adjustment per patient size (includes targeted exams where dose is matched to clinical indication); or iterative reconstruction. Contrast material: ISOVUE 370; Contrast volume: 94 ml; Contrast route: INTRAVENOUS (IV); COMPARISON: CT ABDOMEN PELVIS W CON 01/22/2023 2:55 PM FINDINGS: Heart: Dense calcification of the mitral annulus. Aorta: Dense atherosclerotic calcification throughout the abdominal aorta. No evidence of aneurysm or dissection. Celiac trunk and mesenteric arteries: No occlusion or significant stenosis. Renal arteries: Moderate bilateral renal artery stenosis. Right iliac arteries: No occlusion or significant stenosis. Left iliac arteries: No occlusion or significant stenosis. Liver: No mass. Gallbladder and bile ducts: The gallbladder is surgically absent. Pancreas: Unremarkable. No mass. No ductal dilation. Spleen: Unremarkable. No splenomegaly. Adrenal glands: Unremarkable. No mass. Kidneys and ureters: Unremarkable. No solid mass. No hydronephrosis. Stomach and bowel: Moderate sigmoid diverticulosis. No bowel wall thickening or evidence of bowel obstruction. Appendix: No evidence of appendicitis. Intraperitoneal space: Unremarkable. No free air. No significant fluid collection. Lymph nodes: Unremarkable. No enlarged lymph nodes. Urinary bladder: Unremarkable. No mass. Reproductive: Uterus is surgically absent. No adnexal abnormality. Bones/joints: Mild lumbar scoliosis. Significant multilevel degenerative disc disease and facet arthropathy throughout the lower spine. Orthopedic hardware produces posterior fusion at L3-L4. No acute fracture. Soft tissues: Unremarkable. IMPRESSION: Dense atherosclerotic calcification of the aorta with moderate bilateral renal artery stenosis. No other significant arterial stenosis or occlusion in the abdomen or pelvis. Other incidental chronic findings as noted.
[2023-08-14] MEDS: 0.9 % SODIUM CHLORIDE 50 ML VIAL 40 ML IV (17:24)
[2023-08-14] MEDS: IOPAMIDOL-370 (76%);100ML BOTTLE 94 ML IV (17:28)
[2023-08-14 17:59] LABS: Microscopic, Urine URINE MICROSCOPIC (MICROSCOPIC)
[2023-08-14 18:01] LABS: Appearance,Urine CLEAR (Clear); Bilirubin,Urine Negative (Negative); Blood, Urine TRACE-I (Negative); Color,Urine YELLOW (Yellow); Glucose,Urine (UA) TRACE (Negative); Ketones,Urine Negative (Negative); Leukocyte Esterase,Urine Negative (Negative); Nitrate,Urine Negative (Negative); Protein,Urine 1+ (Negative); Urobilinogen,Urine 0.2 EU/dl (0.2)
[2023-08-14 18:18] LABS: Bacteria,Urine Trace /lpf; RBC,Urine Occasional #/hpf (0-3); Squamous Epithelial Cell,Urine Occasional #/hpf (0-5)
== END 2023-08-14 18:56 | disposition home or self-care (01) ==
PROVIDERS: Emergency Provider Emergency Medicine; PCP Internal Medicine Adolescent Medicine
DX: E87.1 Hypo-osmolality and hyponatremia (principal); R10.30 Lower abdominal pain, unspecified; E11.9 Type 2 diabetes mellitus without complications; I10 Essential (primary) hypertension; E78.5 Hyperlipidemia, unspecified; Z79.84 Long term (current) use of oral hypoglycemic drugs
CPT/HCPCS: 74174; 80053; 81001; 82803; 83036; 83605; 83690; 85025; 96361; 96374; 96375; 99284; Q9967

== ENCOUNTER 2023-08-15 18:23 | Observation (INO) | payer MEDICARE, BC, SELFPAY ==
[2023-08-15] VITALS (8 sets, daily range): BP systolic 165–220; BP diastolic 74–89; PULSE 82–100; RESP 17–20; TEMP 36.5–37.2; O2SAT 97–99; BMI 30.2; BMI 30.5
--- NOTE | 2023-08-15 18:35 | PC.NURSE ---
in room talking with patient at this time.
--- NOTE | 2023-08-15 18:37 | CT_ITS ---
PROCEDURE INFORMATION: Exam: CTA Chest With Contrast Exam date and time: 08/15/2023 6:58 PM Age: 77 years old Clinical indication: Other: Hypertension; Additional info: Severe abdominal pain, hypertension TECHNIQUE: Imaging protocol: Computed tomographic angiography of the chest with contrast. Exam focused on the arteries. 3D rendering (Not supervised by radiologist): MIP and/or 3D reconstructed images were created by the technologist. Radiation optimization: All CT scans at this facility use at least one of these dose optimization techniques: automated exposure control; mA and/or kV adjustment per patient size (includes targeted exams where dose is matched to clinical indication); or iterative reconstruction. Contrast material: ISOUVE 370; Contrast volume: 100 ml; Contrast route: INTRAVENOUS (IV); COMPARISON: 1. CR XR CHEST PORTABLE 02/02/2023 2:00 AM 2. CR XR CHEST PORTABLE 01/22/2023 2:08 PM 3. CR XR CHEST 2V 04/08/2022 6:51 PM FINDINGS: Pulmonary arteries: Normal. No pulmonary emboli. Aorta: There is atherosclerotic disease of the visualized aorta and its major branch vessels. The aorta is normal caliber without focal abnormality. No dissection or aneurysm. Lungs: Scattered areas of bronchial wall thickening which are likely chronic inflammatory. A few areas of subpleural reticulation are noted, nonspecific. There are scattered calcified granulomas in the lungs which most likely reflect prior granulomatous disease. Pleural spaces: Unremarkable. No pneumothorax. No pleural effusion. Heart: There is dense mitral annular calcification. Lymph nodes: There are calcified mediastinal lymph nodes likely reflecting prior granulomatous disease. There are mildly prominent mediastinal lymph nodes which are nonenlarged. Intraperitoneal space: Please see the dedicated interpretation of abdomen and pelvis for findings in that region. Bones/joints: There is diffuse degenerative disease of the visualized osseous structures. Soft tissues: Unremarkable. IMPRESSION: 1. The aorta is normal caliber without focal abnormality. No dissection or aneurysm. 2. No dense parenchymal consolidation, pleural effusion, or pneumothorax. 3. Please see the dedicated interpretation of abdomen and pelvis for findings in that region.
--- NOTE | 2023-08-15 18:37 | CT_ITS ---
PROCEDURE INFORMATION: Exam: CTA Abdomen and Pelvis With Contrast Exam date and time: 08/15/2023 6:58 PM Age: 77 years old Clinical indication: Abdominal pain; Acute; Additional info: Severe abdominal pain, hypertension TECHNIQUE: Imaging protocol: Computed tomographic angiography of the abdomen and pelvis with contrast. Exam focused on the arteries. 3D rendering (Not supervised by radiologist): MIP and/or 3D reconstructed images were created by the technologist. Radiation optimization: All CT scans at this facility use at least one of these dose optimization techniques: automated exposure control; mA and/or kV adjustment per patient size (includes targeted exams where dose is matched to clinical indication); or iterative reconstruction. Contrast material: ISOUVE 370; Contrast volume: 100 ml; Contrast route: INTRAVENOUS (IV); COMPARISON: 1. CT ANGIO ABDOMEN PELVIS 08/14/2023 5:[address] ABDOMEN PELVIS W CON 01/22/2023 2:55 PM FINDINGS: Aorta: There is atherosclerotic disease of the visualized aorta and its major branch vessels. Celiac trunk and mesenteric arteries: No occlusion or significant stenosis. Renal arteries: No occlusion or significant stenosis. Right iliac arteries: No occlusion or significant stenosis. Left iliac arteries: No occlusion or significant stenosis. Liver: The liver demonstrates a cirrhotic morphology with nodular contour and volume redistribution. Gallbladder and bile ducts: The patient is status post cholecystectomy. Pancreas: There is fatty replacement of the pancreas. Spleen: There are multiple calcifications in the spleen most likely reflects small granulomas. Adrenal glands: Unremarkable. No mass. Kidneys and ureters: There is nonspecific bilateral perinephric stranding. Stomach and bowel: There is moderate wall thickening involving the gastric antrum as well as the duodenal bulb concerning for gastroenteritis. There are scattered colonic diverticula without evidence for active diverticulitis. Appendix: No evidence of appendicitis. Intraperitoneal space: Unremarkable. No free air. No significant fluid collection. Lymph nodes: Unremarkable. No enlarged lymph nodes. Urinary bladder: Unremarkable. No mass. Reproductive: The patient has undergone prior hysterectomy. Bones/joints: There is surgical hardware within the lumbar spine. There is diffuse degenerative disease of the visualized osseous structures. Soft tissues: Unremarkable. Other findings: Please see the dedicated interpretation of the thorax for findings in that region. IMPRESSION: 1. There is moderate wall thickening involving the gastric antrum as well as the duodenal bulb concerning for gastroenteritis. 2. Please see the dedicated interpretation of the thorax for findings in that region.
--- NOTE | 2023-08-15 18:42 | HMH.EDGENADL ---
Discharge Plan Disposition Patient Disposition: Admitted Condition: Serious Clinical Impressions Clinical Impression: Intractable abdominal pain, Hypertensive urgency Discharge ED Provider: Inna Toribio General Adult HPI General Chief complaint: Abdominal Pain Stated complaint: abd pain dirrhea Time Seen by Provider: 08/15/23 18:26 Mode of Arrival: Wheelchair Source of Information: Patient Limitations: No Limitations Description of Symptoms (Recalled from ER Triage Doc. by RN): pt to ed c/o abd pain x3 days. pt states her pain is predominately in her mid abd. pt reports normal bm. pt states she was seen in the ED for the same complaint. History of Present Illness HPI narrative: This patient is a 77-year-old female with history of hypertension, hyperlipidemia,, anxiety, illness anxiety disorder, diabetes, chronic abdominal pain, appendectomy, cholecystectomy presenting to the emergency department with concern for significant worsening abdominal pain that she was evaluated for yesterday. She states that severe, constant, and nothing is making it better. She notes that it is generalized but worse in her mid abdomen. She has had no nausea, vomiting, changes bowel movements, or other concerns at this time. Patient was evaluated here in the emergency department yesterday for similar symptoms and had a CT angiogram as well as labs obtained that were reassuring. She was discharged home, but she states that things have gotten significantly worse since then. Related Data Home Medications Medication Instructions Recorded Confirmed losartan 100 mg tablet 100 mg PO HS High blood pressure 06/26/18 08/15/23 memantine 10 mg tablet 10 mg PO BID Memory 06/26/18 08/15/23 pravastatin 80 mg tablet 80 mg PO HS Cholesterol 06/26/18 08/15/23 famotidine 20 mg tablet 20 mg PO BID Acid Reflux 03/10/20 08/15/23 donepezil 10 mg tablet 10 mg PO DAILY Memory 01/23/23 08/15/23 escitalopram oxalate 20 mg tablet 20 mg PO DAILY Mood 01/23/23 08/15/23 levothyroxine 88 mcg tablet 88 mcg PO DAILYDM Thyroid 01/23/23 08/15/23 sitagliptin phosphate 50 1 tab PO BIDWMEAL Diabetes 01/23/23 08/15/23 mg-metformin 1,000 mg tablet (Janumebartolome) diclofenac sodium 1 % topical gel 1 g topical TID JOINT PAIN 02/02/23 08/15/23 Previous Rx's Medication Instructions Recorded aspirin 81 mg tablet,delayed 81 mg PO DAILY #90 tabs 02/03/23 release clotrimazole 1 % topical cream 1 applic topical TID #30 grams 03/16/23 (Lotrimin AF (clotrimazole)) nystatin 100,000 unit/gram topical 1 applic topical TID #60 grams 03/16/23 powder Allergies Allergy/AdvReac Type Severity Reaction Status Date / Time hydroxyzine [HYDROXYZINE] Allergy Unknown Unknown Verified 05/15/23 14:11 allergy reaction meperidine [From DEMEROL] Allergy Unknown Unknown Verified 05/15/23 14:11 allergy reaction rosuvastatin [From CRESTOR] Allergy Unknown Unknown Verified 05/15/23 14:11 allergy reaction PFSH PFSH Disclaimer: The information contained in this section may have been updated after the patient was seen, as this information can be updated by other users. Medical History Afib Rotator cuff arthropathy of both shoulders COVID-19 Subdural hematoma Anxiety Diabetes mellitus, type 2 Hyperlipidemia Hypertension Surgical History Total knee replacement status Previous back surgery History of hysterectomy History of cholecystectomy History of appendectomy Social History Smoking Status: Never smoker alcohol intake: never current occupational status: retired Travel in the last 8 weeks: None household members: spouse housing: house current occupational exposures/hazards: No caffeine: Yes ROS Obtained: Yes All systems reviewed & no additional complaints except as documented Physical Exam General General appearance: alert and anxious Comment: Uncomfortable appearing, crying Head Head exam: atraumatic and normocephalic Eye Eye exam: Present normal appearance, PERRL and EOMI ENT ENT exam: Present normal exam, normal oropharynx, mucous membranes moist and normal external ear exam Neck Neck exam: Present normal inspection, full ROM and trachea midline; Absent tenderness Chest Chest inspection: Present normal inspection and symmetric chest wall rise; Absent tenderness Respiratory Respiratory exam: Present normal lung sounds bilaterally; Absent respiratory distress, wheezes, stridor or accessory muscle use Cardiovascular Cardiovascular exam: Present regular rate, normal rhythm and other (Significantly hypertensive with a systolic greater than 200) Abdominal Exam Abdominal exam: Present soft, tenderness (Generalized) and normal bowel sounds; Absent distention, guarding, rebound or rigidity Extremities Exam Extremities exam: Present normal inspection, full ROM and normal capillary refill; Absent tenderness or edema Back Exam Back exam: Present normal inspection and full ROM; Absent tenderness Neurological Exam Neurological exam: Present alert, oriented X3, CN II-XII intact and normal gait; Absent motor sensory deficit Psychiatric Psychiatric exam: Present normal affect and normal mood Skin Skin exam: Present warm and dry Medical Decision Making Medical Records Medical records reviewed: Yes I reviewed the patient's medical records. Moe Inquiry Pt receiving controlled substance: No Vital Signs: 08/15/23 18:32 08/15/23 19:07 08/15/23 19:16 Temperature 97.7 F Temperature Source Oral Pulse Rate 98 H 88 Pulse Rate [Left Radial] 93 H Respiratory Rate 20 20 18 Blood Pressure 203/89 H 205/87 H Blood Pressure [Right Arm] 203/89 H Blood Pressure Mean 126 Blood Pressure Mean [Right Arm] 127 Blood Pressure Source Blood Pressure Position 02 Sat by Pulse Oximetry 98 97 99 Oxygen Delivery Method Room Air Room Air Room Air 08/15/23 19:31 08/15/23 21:00 08/15/23 21:25 Temperature 98.2 F Temperature Source Oral Pulse Rate 87 82 Pulse Rate [Left Radial] Respiratory Rate 17 19 Blood Pressure 212/83 H 220/80 H Blood Pressure [Right Arm] Blood Pressure Mean 126 Blood Pressure Mean [Right Arm] Blood Pressure Source Automatic Cuff Blood Pressure Position Sitting 02 Sat by Pulse Oximetry 97 Oxygen Delivery Method Room Air Room Air Room Air 08/15/23 21:31 08/15/23 21:31 08/15/23 21:33 Temperature 98.9 F Temperature Source Oral Pulse Rate 100 H Pulse Rate [Left Radial] Respiratory Rate Blood Pressure Blood Pressure [Right Arm] Blood Pressure Mean Blood Pressure Mean [Right Arm] Blood Pressure Source Blood Pressure Position 02 Sat by Pulse Oximetry Oxygen Delivery Method Room Air Lab Data Lab results reviewed: Yes I reviewed the patient's lab results. Lab Results 08/15/23 18:45: WBC 17.0 H D, RBC 4.85, Hgb 12.8, Hct 38.7, MCV 79.8 L, MCH 26.3 L, MCHC 32.9, RDW 15.9, Plt Count 328 D, MPV 7.2 L, Neut % (Auto) 86.2 H, Lymph % (Auto) 10.0, [place] % (Auto) 3.4, Eos % (Auto) 0.2, Baso % (Auto) 0.2, Neut # (Auto) 14.7 H, Lymph # (Auto) 1.7, [place] # (Auto) 0.6, Eos # (Auto) 0.0, Baso # (Auto) 0.0, Total Counted 100, Neutrophils % (Manual) 81 H, Lymphocytes % (Manual) 17, Monocytes % (Manual) 2, Platelet Estimate Normal, RBC Morphology Normal, PT 11.5, INR 1.07, Sodium 128 L, Potassium 3.7, Chloride 93 L, Carbon Dioxide 23, Anion Gap 15.7 H, BUN 18 H D, Creatinine 1.00, Estimated Creat Clear 56, Estimated GFR 54 L, Est GFR ( Amer) 65, Glucose 188 H, Lactate 1.7, Calcium 9.7, Total Bilirubin 0.7, AST 31, ALT 26, Alkaline Phosphatase 104, Troponin I < 0.01, Total Protein 7.9, Albumin 4.5, Globulin 3.4 H, Albumin/Globulin Ratio 1.3, Lipase 172 08/15/23 19:37: Urine Color Yellow, Urine Appearance Clear, Urine pH 6.0, Ur Specific [place] 1.020, Urine Protein 1+, Urine Glucose (UA) Trace, Urine Ketones Trace, Urine Blood Trace-i, Urine Nitrate Negative, Urine Bilirubin Negative, Urine Urobilinogen 0.2, Ur Leukocyte Esterase Negative, Urine RBC Occasional, Urine WBC None, Ur Squamous Epith Cells Occasional, Urine Bacteria Trace 08/15/23 18:45 08/15/23 18:45 Orders (Tests/Meds): ED MEDICATIONS Generic Name Dose Route Start Last Admin Trade Name Freq PRN Reason Stop Dose Admin Acetaminophen 1,000 mg 08/15/23 20:53 Acetaminophen 325mg Tab PO 09/14/23 20:52 Q6HP PRN Fever or Mild Pain (1-3) Enoxaparin Sodium 40 mg 08/16/23 09:00 Enoxaparin 40mg/0.4ml Syringe SQ 09/15/23 08:59 DAILY JG Sodium Chloride 1,000 mls @ 100 mls/hr 08/15/23 21:00 08/15/23 21:46 Sod Chlor 0.9% 1000ml Bag IV 09/14/23 20:59 100 mls/hr .Q10H JG Administration Nicardipine HCl 25 mg/ Sodium 250 mls @ 50 mls/hr 08/15/23 21:03 Chloride IV 09/14/23 21:02 .Q5H JG Protocol Azithromycin 500 mg/ Sodium 250 mls @ 250 mls/hr 08/15/23 21:15 08/15/23 21:47 Chloride IV 08/17/23 21:16 250 mls/hr Q24H JG Administration Insulin Human Lispro 0 unit 08/15/23 21:00 08/15/23 22:02 Humalog 100 Units/Ml 3ml Vial (Ssi) SQ 09/14/23 20:59 2 unit ACHS JG Administration Protocol Levothyroxine Sodium 88 mcg 08/16/23 07:00 Levothyroxine 88mcg (0.088mg) Tab PO 09/15/23 06:59 DAILYDM JG Morphine Sulfate 4 mg 08/15/23 20:53 Morphine 2mg/Ml Syringe IV 09/14/23 20:52 Q4HP PRN Severe Pain (7-10) Ondansetron HCl 4 mg 08/15/23 20:53 Ondansetron 4mg/2ml Vial IV 09/14/23 20:52 Q8HP PRN Nausea Pantoprazole Sodium 40 mg 08/15/23 21:15 08/15/23 21:54 Pantoprazole 40mg Tablet PO 09/14/23 21:14 40 mg DAILY JG Administration Sodium Chloride 10 ml 08/15/23 19:08 08/15/23 19:10 Sodium Chloride 0.9% 10ml Syr (Rad Only) IV 09/14/23 19:07 10 ml NEEDED PRN Administration Maintain IV Site Sodium Chloride 10 ml 08/15/23 20:10 Sodium Chloride 0.9% 10ml Vial IV 09/14/23 20:09 NEEDED PRN dilute protonix Sodium Chloride 10 ml 08/15/23 20:53 Sodium Chloride 0.9% 10ml Flush Syringe IV 09/14/23 20:52 NEEDED PRN Maintain IV Site Discontinued Medications Generic Name Dose Route Start Last Admin Trade Name Freq PRN Reason Stop Dose Admin Acetaminophen 1,000 mg 08/15/23 20:08 08/15/23 20:51 Acetaminophen 1,000mg/100ml Vial IV 08/15/23 20:09 1,000 mg ONCE ONE Administration Hydralazine HCl 10 mg 08/15/23 20:13 08/15/23 20:47 Hydralazine 20mg/Ml Vial IV 08/15/23 20:14 10 mg ONCE ONE Administration Lactated Ringer's 1,000 mls @ 999 mls/hr 08/15/23 20:09 08/15/23 20:48 Lactated Ringer's 1000 Ml Bag IV 08/15/23 21:09 999 mls/hr .Q1H1M ONE Administration Iopamidol 100 ml 08/15/23 19:08 08/15/23 19:10 Iopamidol-370 (76%);100ml Bottle IV 08/15/23 19:09 100 ml ONCE ONE Administration Irbesartan 150 mg 08/15/23 20:08 08/15/23 21:29 Irbesartan 150mg Tab PO 08/15/23 20:09 Not Given ONCE ONE Ketorolac Tromethamine 15 mg 08/15/23 20:08 08/15/23 20:47 Ketorolac 30mg/Ml Vial IV 08/15/23 20:09 15 mg ONCE ONE Administration Morphine Sulfate 4 mg 08/15/23 18:37 08/15/23 19:10 Morphine 4mg/Ml Syringe IV 08/15/23 18:38 4 mg ONCE ONE Administration Morphine Sulfate 4 mg 08/15/23 20:08 08/15/23 20:47 Morphine 4mg/Ml Syringe IV 08/15/23 20:09 4 mg ONCE ONE Administration Ondansetron HCl 4 mg 08/15/23 18:37 08/15/23 19:10 Ondansetron 4mg/2ml Vial IV 08/15/23 18:38 4 mg ONCE ONE Administration Pantoprazole Sodium 40 mg 08/15/23 20:10 08/15/23 20:47 Pantoprazole 40mg Vial IV 08/15/23 20:11 40 mg ONCE ONE Administration Sodium Chloride 50 ml 08/15/23 19:08 08/15/23 19:10 0.9 % Sodium Chloride 50 Ml Vial IV 08/15/23 19:09 50 ml ONCE ONE Administration ORDERS Category Date Time Status CT angio abdomen pelvis Stat Cat Scan 08/15/23 18:[address] angio chest - dissection Stat Cat Scan 08/15/23 18:37 Completed Basic Metabolic Panel AMLAB Lab 08/16/23 06:00 Ordered Complete Blood Count Auto Diff AMLAB Lab 08/16/23 06:00 Ordered Complete Blood Count Auto Diff Stat Lab 08/15/23 18:45 Completed Comprehensive Metabolic Panel Stat Lab 08/15/23 18:45 Completed Lactic Acid Stat Lab 08/15/23 18:45 Completed Lipase Stat Lab 08/15/23 18:45 Completed Magnesium AMLAB Lab 08/16/23 06:00 Ordered Troponin I Q3H Lab 08/15/23 21:38 Completed Troponin I Q3H Lab 08/16/23 00:45 Ordered Troponin I Stat Lab 08/15/23 18:45 Completed Urinalysis and Microscopic Stat Lab 08/15/23 19:37 Completed ECG Request Routine Y 08/16/23 08:00 Ordered ECG Data Tracing #1: I reviewed this ECG and interpreted as documented below: Normal sinus rhythm with a ventricular rate of 88 bpm. No significant changes noted from prior EKG. Left axis deviation noted. No acute STEMI. ECG initial impression date: 08/15/23 ECG initial impression time: 18:45 Medical Decision Narrative: In summary, this patient is a 77-year-old female presenting to the Emergency Department for evaluation of severe abdominal pain. Differential diagnoses considered include but are not limited to aortic pathology, ischemic bowel, constipation, colitis, ACS, functional abdominal pain. Ruling out the most morbid conditions drove assessment. On exam, the patient is significantly uncomfortable appearing and hypertensive with a systolic greater than 200. Workup included CBC, CMP, troponin, lipase, lactic acid, urinalysis, and CT angiogram of the chest, abdomen and pelvis. She was given IV morphine and Zofran for symptomatic improvement. I independently interpreted CT scans prior to the radiologist read and noted concerns for gastroenteritis without other acute concern. Please see their read for final interpretation. Labs were obtained that demonstrated leukocytosis, mildly elevated BUN, and mildly elevated anion gap.. On reassessment, she had no improvement in pain after administration of IV morphine and Zofran. She was then given IV morphine, Toradol, acetaminophen, as well as IV hydralazine for continued hypertension. Systolic is 240s. Ultimately, I feel the patient would benefit from admission for continued management of hypertensive urgency as well as uncontrolled abdominal pain. I had an indirect discussion with the hospitalist to admit the patient for further evaluation and management Critical Care Critical Care Time Critical Care Time: No
--- NOTE | 2023-08-15 18:43 | ECG_ITS ---
APPROVED REPORT Exam: Resting ECG HR:88 bpm ECG Measurements Heart Rate 88 AXES IL 148 P 84 QRSd 101 QRS -32 QT 396 T 66 QTc 441 Conclusion SINUS RHYTHM LEFT AXIS DEVIATION [QRS AXIS < -30] MINIMAL ST DEPRESSION [0.025+ mV ST DEPRESSION] No change from prior EKG Electronically signed by : LESLIE PENA, 08/16/2023 00:24:58
--- NOTE | 2023-08-15 18:53 | PC.NURSE ---
pt to ct scan via wheelchair
[2023-08-15] MEDS: SODIUM CHLORIDE 0.9% 10ML SYR (RAD ONLY) 10 ML IV (19:10)
[2023-08-15] MEDS: ONDANSETRON 4MG/2ML VIAL 4 MG IV (19:10)
[2023-08-15] MEDS: 0.9 % SODIUM CHLORIDE 50 ML VIAL IV (19:10)
[2023-08-15] MEDS: IOPAMIDOL-370 (76%);100ML BOTTLE 100 ML IV (19:10)
[2023-08-15] MEDS: MORPHINE 4MG/ML SYRINGE 4 MG IV ×2 (19:10→20:47)
--- NOTE | 2023-08-15 19:17 | PC.NURSE ---
I rounded on the pt. Her pain is a 9/10-medicated with morphine. no new complaints at this time. call rizzo in reach.
[2023-08-15 19:19] LABS: Basophils % 0.2 % (0.1-2.0); Eosinophils % 0.2 % (0.1-12.0); Hematocrit 38.7 % (37.0-47.0); Hemoglobin 12.8 g/dL (12.2-16.2); Lymphocytes # 1.7 K/mm3 (0.7-4.5); Mean Corpuscular HGB Conc 32.9 g/dL (31.8-35.4); Mean Corpuscular Hemoglobin 26.3 pg (27.0-31.2); Mean Corpuscular Volume 79.8 fl (81-99); Mean Platelet Volume 7.2 fl (7.4-10.4); Monocytes # 0.6 K/mm3 (0.1-1.0); Monocytes % 3.4 % (1.7-9.3); Neutrophils # 14.7 K/mm3 (1.8-7.8); Neutrophils % 86.2 % (37.0-80.0); Platelet Count 328 K/mm3 (142-424); Red Blood Count 4.85 M/mm3 (4.20-5.40); Red Cell Distribution Width 15.9 % (11.5-17.5)
[2023-08-15 19:30] LABS: Chloride 93 mmol/L (98-107); Potassium 3.7 mmoL/L (3.5-5.1); Sodium 128 mmol/L (136-145)
[2023-08-15 19:33] LABS: Alanine Aminotransferase 26 U/L (12-78); Albumin Level 4.5 g/dl (3.5-5.0); Albumin/Globulin Ratio 1.3 (1.1-1.8); Alkaline Phosphatase 104 U/L (38-126); Anion Gap 15.7 mEq/L (5-15); Aspartate Amino Transferase 31 U/L (14-36); Bilirubin,Total 0.7 mg/dl (0.2-1.3); Blood Urea Nitrogen 18 mg/dl (7-17); Calcium 9.7 mg/dl (8.4-10.2); Carbon Dioxide 23 mmol/L (22.0-30.0); Creatinine Clearance Estimated 56 mL/min (50-200); Estimated Glomerular Filt Rate 54 ml/min (>60); GFR (African American) 65 ML/MIN (>60); Globulin 3.4 g/dL (1.3-3.2); Glucose 188 mg/dl (74-100); Lipase 172 U/L (23-300); MANUAL DIFFERENTIAL MANUAL DIFFERENTIAL (MANUAL DIFF); Total Protein,Serum 7.9 g/dl (6.3-8.2)
[2023-08-15 19:34] LABS: Lactic Acid 1.7 mmol/L (0.7-2.1)
[2023-08-15 19:41] LABS: Microscopic, Urine URINE MICROSCOPIC (MICROSCOPIC)
[2023-08-15 19:47] LABS: Troponin I < 0.01 ng/ml (0.00-0.034)
[2023-08-15 19:53] LABS: Appearance,Urine CLEAR (Clear); Bilirubin,Urine Negative (Negative); Blood, Urine TRACE-I (Negative); Color,Urine YELLOW (Yellow); Glucose,Urine (UA) TRACE (Negative); Ketones,Urine TRACE (Negative); Leukocyte Esterase,Urine Negative (Negative); Nitrate,Urine Negative (Negative); Protein,Urine 1+ (Negative); Urobilinogen,Urine 0.2 EU/dl (0.2)
[2023-08-15 20:05] LABS: Lymphocytes % 17 % (10-50); Monocytes % 2 % (2-9); Neutrophils % 81 % (42-76); Platelet Estimate Normal; RBC Morphology Normal; Total Cells Counted 100
[2023-08-15 20:10] LABS: Bacteria,Urine Trace /lpf; RBC,Urine Occasional #/hpf (0-3); Squamous Epithelial Cell,Urine Occasional #/hpf (0-5)
--- NOTE | 2023-08-15 20:20 | PC.NURSE ---
call placed to house for bed assignment; hypertensive urgency and intractible vomiting. spoke with abdias gallegos
--- NOTE | 2023-08-15 20:31 | PC.NURSE ---
I called report to Mahsa NDIAYE
--- NOTE | 2023-08-15 20:41 | PC.NURSE ---
Dr Suarez in the room talking with the pt. Staff waiting to transport up to room once he is finished. TRISTEN
[2023-08-15] MEDS: PANTOPRAZOLE 40MG VIAL 40 MG IV (20:47)
[2023-08-15] MEDS: KETOROLAC 30MG/ML VIAL 15 MG IV (20:47)
[2023-08-15] MEDS: HYDRALAZINE 20MG/ML VIAL 10 MG IV (20:47)
[2023-08-15] MEDS: LACTATED RINGERS 1000ML 1,000 ML 999 ML IV (20:48)
--- NOTE | 2023-08-15 20:50 | PC.NURSE ---
DR. SHARPE REQUESTED CARDENE GTT. ROOM ASSIGNMENT CHANGED TO STEP DOWN, CHANGES TO PREVIOUS PATIENT ASSIGNMENT TO STAFF FOR STEP DOWN NURSE.
[2023-08-15] MEDS: ACETAMINOPHEN 1,000MG/100ML VIAL 1000 MG IV (20:51)
--- NOTE | 2023-08-15 21:08 | P.HP_ITS ---
History of Present Illness *Admission Date: 08/15/23 *Reason for visit:: Abdominal pain *History of present illness: This is a 77-year-old female that is accompanied by her of 57 years to [facility] emergency department for the second time in 48 hours. She presented to the ED yesterday with abdominal pain and after an extensive workup and objective evaluation she was discharged. She reports she started experiencing diarrhea today approximately 4 episodes characterized as green and liquidy with crescendo diffuse abdominal pain. She reports her pain is constant but is worsened with tenesmus and evacuation. She rates the pain as a 10 on a 1-10 pain scale. She reports that it is across her lower abdomen but radiates to her epigastrium as well. She describes nausea and 1 episode of emesis yesterday. She reports no p.o. intake today. There is been no associated jaundice, fever, chills, syncope, falls or confusion. She reports a past medical history of a fall with subdural hematoma and posttraumatic brain injury with memory impairment. Her assists with the history. They report routine evaluations with her local doctor and described a colonoscopy in 2018. In the ED her presenting blood pressure identify systolics greater than 200 and diastolics greater than 100. She is afebrile and saturating appropriately on room air. Laboratory evaluation identifies a leukocytosis with a normal hemoglobin and platelet count. Her lactic acid is negative her LFTs are normal, her lipase is normal and her urinalysis identifies no infectious process. CT of the abdomen pelvis is consistent with cirrhosis, no ascites and gastroenteritis. [facility] Disclaimer: The information contained in this section may have been updated after the patient was seen, as this information can be updated by other users. Medical History (Updated 08/15/23 @ 21:22 by Kj Suarez MD) Afib Rotator cuff arthropathy of both shoulders COVID-19 Subdural hematoma Anxiety Diabetes mellitus, type 2 Hyperlipidemia Hypertension Surgical History Total knee replacement status Previous back surgery History of hysterectomy History of cholecystectomy History of appendectomy Social History Smoking Status: Never smoker alcohol intake: never current occupational status: retired Travel in the last 8 weeks: None household members: spouse housing: house current occupational exposures/hazards: No caffeine: Yes Review of Systems Review of Systems Review of systems:: pertinent systems reviewed and negative unless documented below Constitutional Constitutional: Denies chills, Denies fever(s), Reports poor appetite and Reports malaise ENT Ears, Nose, Mouth, and Throat: Denies dysphagia *Cardiovascular Cardiovascular: Denies chest pain, Denies chest pain with activity, Denies dyspnea, Denies irregular heart rhythm and Denies leg edema *Respiratory Respiratory: Denies dyspnea *Gastrointestinal Gastrointestinal: Reports abdominal pain, Reports change in bowel habits, Reports change in stool character, Denies coffee ground emesis, Denies dysphagia, Denies hematemesis, Denies hematochezia, Reports loose stools, Denies melena, Reports nausea and Reports vomiting *Genitourinary Genitourinary: Denies difficulty voiding *Neurologic Neurologic: Denies confusion Psychiatric Psychiatric: Reports anxiety and Denies confusion Meds Home Medications and Allergies Home Medications Medication Instructions Recorded Confirmed Type losartan 100 mg tablet 100 mg PO HS High blood pressure 06/26/18 05/15/23 History memantine 10 mg tablet 10 mg PO BID Memory 06/26/18 05/15/23 History pravastatin 80 mg tablet 80 mg PO HS Cholesterol 06/26/18 05/15/23 History famotidine 20 mg tablet 20 mg PO BID Acid Reflux 03/10/20 05/15/23 History donepezil 10 mg tablet 10 mg PO DAILY Memory 01/23/23 05/15/23 History escitalopram oxalate 20 mg tablet 20 mg PO DAILY Mood 01/23/23 05/15/23 History levothyroxine 88 mcg tablet 88 mcg PO DAILYDM Thyroid 01/23/23 05/15/23 History sitagliptin phosphate 50 1 tab PO BIDWMEAL Diabetes 01/23/23 05/15/23 History mg-metformin 1,000 mg tablet (Janumet) diclofenac sodium 1 % topical gel 1 g topical TID JOINT PAIN 02/02/23 05/15/23 History aspirin 81 mg tablet,delayed 81 mg PO DAILY #90 tabs 02/03/23 05/15/23 Rx release clotrimazole 1 % topical cream 1 applic topical TID #30 grams 03/16/23 05/15/23 Rx (Lotrimin AF (clotrimazole)) nystatin 100,000 unit/gram topical 1 applic topical TID #60 grams 03/16/23 05/15/23 Rx powder methylprednisolone 4 mg tablets in See Rx Instructions PO PER PKG DIR 05/15/23 05/15/23 Rx a dose pack (Medrol (Tee)) #21 tabs metoclopramide HCl 10 mg tablet 10 mg PO Q6H PRN nausea and 08/14/23 Rx (Reglan) vomiting #20 tabs New Prescriptions to Start Prescriptions: Allergies Allergy/AdvReac Type Severity Reaction Status Date / Time hydroxyzine [HYDROXYZINE] Allergy Unknown Unknown Verified 05/15/23 14:11 allergy reaction meperidine [From DEMEROL] Allergy Unknown Unknown Verified 05/15/23 14:11 allergy reaction rosuvastatin [From CRESTOR] Allergy Unknown Unknown Verified 05/15/23 14:11 allergy reaction Exam Data for Last 24 hours Vital signs and Labs for Last 24 Hours: Temp Pulse Resp BP Pulse Ox O2 Del Method 97.7 F 87 17 212/83 H 97 Room Air 08/15/23 18:32 08/15/23 19:31 08/15/23 19:31 08/15/23 19:31 08/15/23 19:31 08/15/23 19:31 Laboratory Results - last 24 hr 08/15/23 18:45: WBC 17.0 H D, RBC 4.85, Hgb 12.8, Hct 38.7, MCV 79.8 L, MCH 26.3 L, MCHC 32.9, RDW 15.9, Plt Count 328 D, MPV 7.2 L, Neut % (Auto) 86.2 H, Lymph % (Auto) 10.0, [place] % (Auto) 3.4, Eos % (Auto) 0.2, Baso % (Auto) 0.2, Neut # (Auto) 14.7 H, Lymph # (Auto) 1.7, [place] # (Auto) 0.6, Eos # (Auto) 0.0, Baso # (Auto) 0.0, Total Counted 100, Neutrophils % (Manual) 81 H, Lymphocytes % (Manual) 17, Monocytes % (Manual) 2, Platelet Estimate Normal, RBC Morphology Normal, Sodium 128 L, Potassium 3.7, Chloride 93 L, Carbon Dioxide 23, Anion Gap 15.7 H, BUN 18 H D, Creatinine 1.00, Estimated Creat Clear 56, Estimated GFR 54 L, Est GFR ( Amer) 65, Glucose 188 H, Lactate 1.7, Calcium 9.7, Total Edison irubin 0.7, AST 31, ALT 26, Alkaline Phosphatase 104, Troponin I < 0.01, Total Protein 7.9, Albumin 4.5, Globulin 3.4 H, Albumin/Globulin Ratio 1.3, Lipase 172 08/15/23 19:37: Urine Color Yellow, Urine Appearance Clear, Urine pH 6.0, Ur Specific [place] 1.020, Urine Protein 1+, Urine Glucose (UA) Trace, Urine Ketones Trace, Urine Blood Trace-i, Urine Nitrate Negative, Urine Bilirubin Negative, Urine Urobilinogen 0.2, Ur Leukocyte Esterase Negative, Urine RBC Occasional, Urine WBC None, Ur Squamous Epith Cells Occasional, Urine Bacteria Trace I & O for Last 24 hours: Intake & Output 08/12/23 08/13/23 08/14/23 08/15/23 23:59 23:59 23:59 23:59 Weight 72.575 kg Constitutional Constitutional: mild distress and obese *Routine HEENT Exam Head: Present normocephalic Eye: Present EOMI and PERRL ENT: Present mucous membranes dry *Routine Neck Exam Neck: Present supple and full ROM; Absent tenderness *Routine Respiratory Exam Respiratory: Present CTA bilaterally and normal respiratory effort; Absent respiratory distress *Routine Cardiovascular Exam Cardiovascular: Present RRR and murmur *Routine Abdominal Exam Abdominal: Present soft, normoactive bowel sounds and tenderness; Absent distended, rebound or guarding *Routine Rectal Exam Rectal:: deferred *Routine Genitalia Exam Genitalia:: deferred *Routine Extremities Exam Extremities: Present full ROM; Absent cyanosis, clubbing or edema *Routine Skin Exam Skin: Present intact; Absent cyanosis or rash *Routine Neurological Exam Neurological: Present alert, oriented X3, moving all extremities, vision grossly intact, hearing grossly intact and normal speech Routine Psychiatric Exam Psychiatric: Present normal thought process, cooperative and anxious Assessment and Plan *Assessment and plan (1) Hypertensive urgency: Status: Acute Category: Medical Code(s): I16.0 - Hypertensive urgency (2) Gastroenteritis: Status: Acute Category: Medical Code(s): K52.9 - Noninfective gastroenteritis and colitis, unspecified (3) Intractable abdominal pain: Status: Acute Category: Medical Code(s): R10.9 - Unspecified abdominal pain (4) Diabetes: Status: Chronic Qualifiers: Diabetes mellitus type: type 2 Diabetes mellitus manager long term care insulin use: without long-term use Category: Medical Code(s): E11.9 - Type 2 diabetes mellitus without complications (5) Essential hypertension: Status: Chronic Category: Medical Code(s): I10 - Essential (primary) hypertension (6) Memory impairment: Status: Chronic Category: Medical Code(s): R41.3 - Other amnesia Plan Patient is a 77-year-old female with intractable abdominal pain over 48 hours, symptoms of gastroenteritis and presenting with hypertensive urgency with a hi story of hypertension, diabetes, memory impairment and previous traumatic brain injury. Problems addressed as follows: Hypertensive urgency Telemetry monitoring IV Cardene with goal reduction approximately 20% in the first hour then 15% over 23 hours Drug therapy requiring intensive monitoring for toxicity Routine blood pressure monitoring Echocardiogram with murmur auscultated Trending labs and inflammatory markers Essential hypertension Routine blood pressure monitoring Home BP med reconciliation Echocardiogram Patient education Gastroenteritis Intractable abdominal pain CT abdomen and pelvis with gastroenteritis noted Trending labs and inflammatory markers Clear liquid diet GI PCR panel IV azithromycin IV antiemetics Pain control Parenterally administered controlled substance for comfort care [id number] Most likely JOE Chronic hyponatremia Outpatient follow-up with gastroenterology Accurate I's and O's ED LFTs normal Diabetes Routine blood sugar monitoring Sliding scale insulin therapy Carbohydrate controlled clear liquid diet Hypothyroidism Levothyroxine replacement therapy Memory impairment Routine nursing interaction Reconciling home medications The patient is admitted with above diagnoses complicated by her memory impairment. Her at bedside is retired and attends to her needs on a daily basis. They have been 57 years. Her presenting blood pressure is a concern with her history of traumatic subdural hematoma. The patient presented without acute symptomatology for neurological changes. The length of stay for this patient will be 2 midnights or greater due to above diagnoses and need to transition blood pressure gradually over time. We will continue to monitor her abdominal pain and findings on imaging consistent with gastroenteritis. Fluid resuscitation is cautiously administered and we will continue with IV antiemetic therapy.
--- NOTE | 2023-08-15 21:19 | PC.NURSE ---
Report called to Ana NDIAYE
[2023-08-15] MEDS: 0.9 % SODIUM CHLORIDE 1000ML 1,000 ML 100 ML IV (21:46)
[2023-08-15] MEDS: AZITHROMYCIN 500 MG in 0.9 % SODIUM CHLORIDE 250 ML 250 MG IV (21:47)
[2023-08-15 21:51] LABS: INR 1.07 (0.9-1.1); Prothrombin Time 11.5 seconds (10.1-12.5)
[2023-08-15] MEDS: PANTOPRAZOLE 40MG TABLET 40 MG PO (21:54)
[2023-08-15 21:59] LABS: POC Glucose,Bedside 172 (70-110)
[2023-08-15] MEDS: humaLOG 100 UNITS/ML 3ML VIAL (SSI) SQ (22:02)
[2023-08-15 22:22] LABS: Troponin I 0.01 ng/ml (0.00-0.034)
--- NOTE | 2023-08-15 22:31 | PC.NURSE ---
Patient arrived to floor via stretcher from ED at 21:25.
[2023-08-16] VITALS (23 sets, daily range): BP systolic 146–191; BP diastolic 62–87; PULSE 74–92; RESP 13–22; TEMP 36.7–37.1; O2SAT 90–97; BMI 30.5
[2023-08-16 01:08] LABS: Troponin I 0.01 ng/ml (0.00-0.034)
[2023-08-16] MEDS: MORPHINE 2MG/ML SYRINGE 4 MG IV ×2 (01:21→05:28)
--- NOTE | 2023-08-16 05:14 | PC.NURSE ---
Since arriving to the floor the patient has been able to rest. Patient has not has any more BM to collect a sample from. Patient BP has remained within the limits of the criteria for the BP controlling drip so that drip has not been started. Patient has been up to the bathroom to void. Tolerated that well with 1 assist with no issues. Painted was medicated for pain per MAR. no other issues through the night.
[2023-08-16 05:43] LABS: POC Glucose,Bedside 142 (70-110)
[2023-08-16 07:13] LABS: Basophils % 0.3 % (0.1-2.0); Eosinophils # 0.1 K/mm3 (0.0-0.4); Eosinophils % 0.5 % (0.1-12.0); Hemoglobin 11.6 g/dL (12.2-16.2); Lymphocytes # 2.2 K/mm3 (0.7-4.5); Mean Corpuscular HGB Conc 33.1 g/dL (31.8-35.4); Mean Corpuscular Hemoglobin 26.7 pg (27.0-31.2); Mean Corpuscular Volume 80.5 fl (81-99); Mean Platelet Volume 7.4 fl (7.4-10.4); Monocytes # 0.8 K/mm3 (0.1-1.0); Monocytes % 6.1 % (1.7-9.3); Neutrophils # 9.7 K/mm3 (1.8-7.8); Neutrophils % 76.2 % (37.0-80.0); Platelet Count 273 K/mm3 (142-424); Red Blood Count 4.35 M/mm3 (4.20-5.40); Red Cell Distribution Width 16.1 % (11.5-17.5); White Blood Count 12.8 K/mm3 (4.8-10.8)
[2023-08-16 07:20] LABS: Chloride 101 mmol/L (98-107); Sodium 130 mmol/L (136-145)
[2023-08-16 07:21] LABS: Potassium 3.6 mmoL/L (3.5-5.1)
[2023-08-16 07:23] LABS: Blood Urea Nitrogen 17 mg/dl (7-17); Creatinine Clearance Estimated 56 mL/min (50-200); Estimated Glomerular Filt Rate 54 ml/min (>60); GFR (African American) 65 ML/MIN (>60)
[2023-08-16 07:24] LABS: Anion Gap 7.6 mEq/L (5-15); Calcium 8.7 mg/dl (8.4-10.2); Carbon Dioxide 25 mmol/L (22.0-30.0); Glucose 146 mg/dl (74-100); Magnesium 1.5 mg/dl (1.6-2.3)
[2023-08-16] MEDS: 0.9 % SODIUM CHLORIDE 1000ML 1,000 ML 100 ML IV ×2 (07:40→17:11)
--- NOTE | 2023-08-16 08:07 | EXP.ACUTE.PN ---
Subjective *Date: 08/16/23 *Time: 13:10 Interval history: Still complaining of abdominal discomfort this morning but no nausea or diarrhea. No kavon emesis. Afebrile. Comfortable in bed. Heart rate normal. Blood pressure still elevated. Has been at bedside. Pleasant and able to answer simple questions but does appear to have some mild confusion and forgetfulness. Medical Exam Vital signs and Labs for Last 24 Hours: Vital Signs Temp Pulse Pulse Resp BP BP Pulse Ox 08/16/23 07:50 98.6 F 08/16/23 06:31 166/64 H 08/16/23 06:00 78 15 170/62 H 93 L 08/16/23 05:00 08/16/23 04:00 80 08/16/23 04:00 08/16/23 04:00 83 13 170/70 H 94 L 08/16/23 03:00 08/16/23 02:00 82 15 163/70 H 94 L 08/16/23 01:00 08/16/23 00:00 80 08/16/23 00:00 98.8 F 87 15 171/71 H 96 08/15/23 23:00 08/15/23 22:00 91 H 20 165/74 H 98 08/15/23 21:33 100 H 08/15/23 21:31 08/15/23 21:31 98.9 F 08/15/23 21:25 98.2 F 82 19 220/80 H 08/15/23 21:00 08/15/23 19:31 87 17 212/83 H 97 08/15/23 19:16 88 18 205/87 H 99 08/15/23 19:07 98 H 20 203/89 H 97 08/15/23 18:32 97.7 F 93 H 20 203/89 H 98 O2 Del Method 08/16/23 07:50 08/16/23 06:31 08/16/23 06:00 Room Air 08/16/23 05:00 Room Air 08/16/23 04:00 08/16/23 04:00 Room Air 08/16/23 04:00 Room Air 08/16/23 03:00 Room Air 08/16/23 02:00 Room Air 08/16/23 01:00 Room Air 08/16/23 00:00 08/16/23 00:00 08/15/23 23:00 BiPAP 08/15/23 22:00 08/15/23 21:33 08/15/23 21:31 Room Air 08/15/23 21:31 08/15/23 21:25 Room Air 08/15/23 21:00 Room Air 08/15/23 19:31 Room Air 08/15/23 19:16 Room Air 08/15/23 19:07 Room Air 08/15/23 18:32 Room Air Intake and Output 08/15/23 08/16/23 08/16/23 23:59 07:59 15:59 Intake Total 185 / 185 Output Total 200 / 200 Balance -15 / -15 Intake: Intake, Oral Amount 185 / 185 Output: Output, Urine Amount 200 / 200 Other: Weight 73.437 kg 73.437 kg Patient Weight 08/16/23 23:59 Weight 73.437 kg Laboratory Results - last 24 hr 08/15/23 18:45: WBC 17.0 H D, RBC 4.85, Hgb 12.8, Hct 38.7, MCV 79.8 L, MCH 26.3 L, MCHC 32.9, RDW 15.9, Plt Count 328 D, MPV 7.2 L, Neut % (Auto) 86.2 H, Lymph % (Auto) 10.0, [place] % (Auto) 3.4, Eos % (Auto) 0.2, Baso % (Auto) 0.2, Neut # (Auto) 14.7 H, Lymph # (Auto) 1.7, [place] # (Auto) 0.6, Eos # (Auto) 0.0, Baso # (Auto) 0.0, Total Counted 100, Neutrophils % (Manual) 81 H, Lymphocytes % (Manual) 17, Monocytes % (Manual) 2, Platelet Estimate Normal, RBC Morphology Normal, PT 11.5, INR 1.07, Sodium 128 L, Potassium 3.7, Chloride 93 L, Carbon Dioxide 23, Anion Gap 15.7 H, BUN 18 H D, Creatinine 1.00, Estimated Creat Clear 56, Estimated GFR 54 L, Est GFR ( Amer) 65, Glucose 188 H, Lactate 1.7, Calcium 9.7, Total Bilirubin 0.7, AST 31, ALT 26, Alkaline Phosphatase 104, Troponin I < 0.01, Total Protein 7.9, Albumin 4.5, Globulin 3.4 H, Albumin/Globulin Ratio 1.3, Lipase 172 08/15/23 19:37: Urine Color Yellow, Urine Appearance Clear, Urine pH 6.0, Ur Specific [place] 1.020, Urine Protein 1+, Urine Glucose (UA) Trace, Urine Ketones Trace, Urine Blood Trace-i, Urine Nitrate Negative, Urine Bilirubin Negative, Urine Urobilinogen 0.2, Ur Leukocyte Esterase Negative, Urine RBC Occasional, Urine WBC None, Ur Squamous Epith Cells Occasional, Urine Bacteria Trace 08/15/23 21:38: Troponin I 0.01 08/15/23 21:51: POC Glucose 172 H 08/16/23 00:40: Troponin I 0.01 08/16/23 05:25: POC Glucose 142 H 08/16/23 07:00: WBC 12.8 H, RBC 4.35, Hgb 11.6 L, Hct 35.0 L, MCV 80.5 L, MCH 26.7 L, MCHC 33.1, RDW 16.1, Plt Count 273, MPV 7.4, Neut % (Auto) 76.2, Lymph % (Auto) 17.0, [place] % (Auto) 6.1, Eos % (Auto) 0.5, Baso % (Auto) 0.3, Neut # (Auto) 9.7 H, Lymph # (Auto) 2.2, [place] # (Auto) 0.8, Eos # (Auto) 0.1, Baso # (Auto) 0.0, Sodium 130 L, Potassium 3.6, Chloride 101, Carbon Dioxide 25, Anion Gap 7.6, BUN 17, Creatinine 1.00, Estimated Creat Clear 56, Estimated GFR 54 L, Est GFR ( Amer) 65, Glucose 146 H D, Calcium 8.7, Magnesium 1.5 L I & O for Labs for Last 24 Hours: Intake & Output 08/13/23 08/14/23 08/15/23 08/16/23 23:59 23:59 23:59 23:59 Intake Total 185 / 185 Output Total 200 / 200 Balance -15 / -15 Weight 73.437 kg 73.437 kg Constitutional: Present no acute distress, obese, chronically ill appearing and cooperative Head: Present atraumatic and normocephalic ENT: Present normal exam Neck: Present normal inspection Respiratory: Present normal respiratory effort; Absent rhonchi, wheezes or crackles Cardiac: Present Reg Rate and Rhythm GI: Present soft, tenderness (Upper abdomen, no guarding or rebound) and normal bowel sounds; Absent distention Extremities: Present normal inspection and full ROM Skin: Present intact; Absent erythema Neuro: Present Grossly Intact, alert, awake and moves all extremities Comment:: Oriented to self and place. Assessment and Plan *Assessment and plan (1) Hypertensive urgency: Status: Acute Category: Medical Code(s): I16.0 - Hypertensive urgency (2) Gastroenteritis: Status: Acute Category: Medical Code(s): K52.9 - Noninfective gastroenteritis and colitis, unspecified (3) Intractable abdominal pain: Status: Acute Category: Medical Code(s): R10.9 - Unspecified abdominal pain (4) Diabetes: Status: Chronic Qualifiers: Diabetes mellitus type: type 2 Diabetes mellitus long term care phlebotomist insulin use: without longterm use Category: Medical Code(s): E11.9 - Type 2 diabetes mellitus without complications (5) Essential hypertension: Status: Chronic Category: Medical Code(s): I10 - Essential (primary) hypertension (6) Memory impairment: Status: Chronic Category: Medical Code(s): R41.3 - Other amnesia Plan Patient is a 77-year-old female with intractable abdominal pain over 48 hours, symptoms of gastroenteritis and presenting with hypertensive urgency with a history of hypertension, diabetes, memory impairment and previous traumatic brain injury. Blood pressure showing slow improvement. Transition to oral regimen today. Problems addressed as follows: Hypertensive urgency Essential hypertension Telemetry monitoring Initiate irbesartan 150 mg daily, increase to 300 mg tomorrow morning. Initiate amlodipine 5 mg daily per home regimen Routine blood pressure monitoring Echocardiogram with murmur auscultated if still admitted on Friday Electrolytes with slight abnormality, potassium 3.6, magnesium 1.5. Will replace magnesium with 2 g IV x 1 Repeat CBC, CMP, magnesium ordered for the morning Gastroenteritis Intractable abdominal pain CT abdomen and pelvis with gastroenteritis noted White cell count down to 12.8 GI cocktail for pain, helped this morning Clear liquid diet GI PCR panel pending IV azithromycin IV antiemetics Continue pantoprazole 40 mg daily [id number] Most likely JOE Chronic hyponatremia Outpatient follow-up with gastroenterology Accurate I's and O's ED LFTs normal Diabetes Routine blood sugar monitoring Sliding scale insulin therapy Carbohydrate controlled clear liquid diet Hypothyroidism Levothyroxine replacement therapy Memory impairment Routine nursing interaction Reconciling home medications Full code Clear liquid diet
[2023-08-16] MEDS: DONEPEZIL 10MG TAB 10 MG PO (09:05)
[2023-08-16] MEDS: LEVOTHYROXINE 88MCG (0.088MG) TAB 88 MCG PO (09:05)
[2023-08-16] MEDS: IRBESARTAN 150MG TAB 150 MG PO ×2 (09:05→20:12)
[2023-08-16] MEDS: CITALOPRAM 40MG TABLET 40 MG PO (09:06)
[2023-08-16] MEDS: PANTOPRAZOLE 40MG TABLET 40 MG PO (09:06)
[2023-08-16] MEDS: ENOXAPARIN 40MG/0.4ML SYRINGE 40 MG SQ (09:06)
[2023-08-16] MEDS: MEMANTINE 10MG TABLET 10 MG PO ×2 (09:06→20:10)
[2023-08-16] MEDS: MORPHINE 4MG/ML SYRINGE 4 MG IV (10:00)
[2023-08-16] MEDS: ONDANSETRON 4MG/2ML VIAL 4 MG IV (10:38)
[2023-08-16] MEDS: AMLODIPINE 5MG TABLET 5 MG PO (11:47)
[2023-08-16] MEDS: BELLADONNA ALKALOIDS 60 ML ML PO ×2 (11:48→17:37)
[2023-08-16] MEDS: humaLOG 100 UNITS/ML 3ML VIAL (SSI) SQ (11:51)
[2023-08-16 11:55] LABS: POC Glucose,Bedside 157 (70-110)
--- NOTE | 2023-08-16 13:20 | PC.NURSE ---
1230 following admin of GI cocktail pt indicated that she no longer had pain in her abdomen/stomach. states stomach feels numb and no longer hurts. pt bp noted to be improved at this time as well.
[2023-08-16] MEDS: MAGNESIUM SULFATE IN WATER 2 GM/50 ML PIGGYBACK IV (14:01)
[2023-08-16 17:26] LABS: POC Glucose,Bedside 132 (70-110)
[2023-08-16] MEDS: AZITHROMYCIN 500 MG in 0.9 % SODIUM CHLORIDE 250 ML 250 MG IV (20:12)
[2023-08-16 20:30] LABS: POC Glucose,Bedside 129 (70-110)
[2023-08-17] VITALS (12 sets, daily range): BP systolic 137–194; BP diastolic 51–90; PULSE 67–90; RESP 14–20; TEMP 36.7–37.1; O2SAT 94–97; BMI 32.2
[2023-08-17] MEDS: 0.9 % SODIUM CHLORIDE 1000ML 1,000 ML 100 ML IV (04:02)
[2023-08-17] MEDS: BELLADONNA ALKALOIDS 60 ML ML PO (04:27)
[2023-08-17 05:20] LABS: POC Glucose,Bedside 155 (70-110)
[2023-08-17] MEDS: humaLOG 100 UNITS/ML 3ML VIAL (SSI) SQ ×2 (05:52→20:20)
[2023-08-17] MEDS: MORPHINE 4MG/ML SYRINGE 4 MG IV (05:55)
--- NOTE | 2023-08-17 07:00 | PC.NURSE ---
Pt A/O x4. Pt has continued to have higher blood pressures during shift with systolic 170s-180s while pain level is managed. Pt has required 1x dose Morphine and 1x dose GI cocktail for abdominal pain. Pt rating pain 7/10 both times. Pt has slept well t/o shift. Up to BR with 1x assist. Call light within reach.
[2023-08-17 08:01] LABS: Basophils % 0.3 % (0.1-2.0); Eosinophils # 0.1 K/mm3 (0.0-0.4); Eosinophils % 0.8 % (0.1-12.0); Hematocrit 33.6 % (37.0-47.0); Hemoglobin 11.1 g/dL (12.2-16.2); Lymphocytes # 1.7 K/mm3 (0.7-4.5); Lymphocytes % 12.8 % (10-50); Mean Corpuscular HGB Conc 33.1 g/dL (31.8-35.4); Mean Corpuscular Hemoglobin 26.6 pg (27.0-31.2); Mean Corpuscular Volume 80.3 fl (81-99); Mean Platelet Volume 7.4 fl (7.4-10.4); Monocytes # 0.6 K/mm3 (0.1-1.0); Monocytes % 4.4 % (1.7-9.3); Neutrophils # 10.7 K/mm3 (1.8-7.8); Neutrophils % 81.8 % (37.0-80.0); Platelet Count 251 K/mm3 (142-424); Red Blood Count 4.18 M/mm3 (4.20-5.40); Red Cell Distribution Width 16.4 % (11.5-17.5); White Blood Count 13.1 K/mm3 (4.8-10.8)
[2023-08-17 08:08] LABS: Chloride 104 mmol/L (98-107)
[2023-08-17 08:09] LABS: Potassium 3.5 mmoL/L (3.5-5.1); Sodium 133 mmol/L (136-145)
[2023-08-17 08:11] LABS: Alanine Aminotransferase 25 U/L (12-78); Alkaline Phosphatase 74 U/L (38-126); Anion Gap 7.5 mEq/L (5-15); Aspartate Amino Transferase 31 U/L (14-36); Bilirubin,Total 0.4 mg/dl (0.2-1.3); Blood Urea Nitrogen 12 mg/dl (7-17); Carbon Dioxide 25 mmol/L (22.0-30.0); Creatinine Clearance Estimated 59 mL/min (50-200); Estimated Glomerular Filt Rate 61 ml/min (>60); GFR (African American) 74 ML/MIN (>60)
[2023-08-17 08:12] LABS: Albumin Level 3.4 g/dl (3.5-5.0); Albumin/Globulin Ratio 1.2 (1.1-1.8); Calcium 8.2 mg/dl (8.4-10.2); Globulin 2.8 g/dL (1.3-3.2); Glucose 130 mg/dl (74-100); Magnesium 1.8 mg/dl (1.6-2.3); Total Protein,Serum 6.2 g/dl (6.3-8.2)
[2023-08-17] MEDS: CITALOPRAM 40MG TABLET 40 MG PO (09:38)
[2023-08-17] MEDS: DONEPEZIL 10MG TAB 10 MG PO (09:38)
[2023-08-17] MEDS: LEVOTHYROXINE 88MCG (0.088MG) TAB 88 MCG PO (09:38)
[2023-08-17] MEDS: IRBESARTAN 300MG TABLET 300 MG PO (09:38)
[2023-08-17] MEDS: PANTOPRAZOLE 40MG TABLET 40 MG PO (09:38)
[2023-08-17] MEDS: ENOXAPARIN 40MG/0.4ML SYRINGE 40 MG SQ (09:38)
[2023-08-17] MEDS: MEMANTINE 10MG TABLET 10 MG PO ×2 (09:38→20:20)
[2023-08-17] MEDS: CARVEDILOL 6.25MG TABLET 6.25 MG PO ×2 (09:41→20:20)
[2023-08-17 11:49] LABS: POC Glucose,Bedside 147 (70-110)
--- NOTE | 2023-08-17 13:38 | EXP.ACUTE.PN ---
Subjective *Date: 08/17/23 *Time: 13:38 Interval history: Improved abdominal pain. Eating small amounts this morning. Tolerating p.o. liquids. Ambulating to urinate. No bowel movement today. Afebrile overnight. On room air. Denies any headache or chest pain. Blood pressure remains high Medical Exam Vital signs and Labs for Last 24 Hours: Vital Signs Temp Pulse Pulse Resp BP BP Pulse Ox 08/17/23 11:08 98.2 F 70 20 170/62 H 08/17/23 11:00 08/17/23 09:00 08/17/23 08:00 08/17/23 07:26 98.3 F 85 20 194/86 H 96 08/17/23 06:57 08/17/23 05:16 90 187/89 H 08/17/23 05:00 08/17/23 04:00 80 08/17/23 04:00 98.0 F 85 14 190/90 H 94 L 08/17/23 03:00 08/17/23 01:00 08/17/23 00:00 80 08/17/23 00:00 98.7 F 83 14 171/80 H 94 L 08/16/23 23:00 08/16/23 21:00 08/16/23 20:00 80 08/16/23 20:00 94 L 08/16/23 19:57 98.4 F 82 16 172/76 H 97 08/16/23 18:56 08/16/23 18:02 83 20 174/77 H 91 L 08/16/23 17:20 08/16/23 17:19 83 20 191/81 H 94 L 08/16/23 17:00 92 H 95 08/16/23 16:00 75 20 157/62 H 96 08/16/23 16:00 74 08/16/23 16:00 98.3 F 77 22 152/67 H 95 08/16/23 15:00 08/16/23 15:00 80 18 146/67 H 92 L 08/16/23 14:00 O2 Del Method O2 Flow Rate 08/17/23 11:08 Room Air 08/17/23 11:00 Room Air 08/17/23 09:00 Room Air 08/17/23 08:00 Room Air 08/17/23 07:26 Room Air 08/17/23 06:57 Room Air 08/17/23 05:16 08/17/23 05:00 Room Air 08/17/23 04:00 08/17/23 04:00 Room Air 08/17/23 03:00 Room Air 08/17/23 01:00 Room Air 08/17/23 00:00 08/17/23 00:00 Room Air 08/16/23 23:00 Room Air 08/16/23 21:00 Room Air 08/16/23 20:00 08/16/23 20:00 Room Air 08/16/23 19:57 08/16/23 18:56 Room Air 08/16/23 18:02 Room Air 08/16/23 17:20 Room Air 08/16/23 17:19 Room Air 08/16/23 17:00 Room Air 08/16/23 16:00 Nasal Cannula 1 08/16/23 16:00 08/16/23 16:00 Nasal Cannula 1 08/16/23 15:00 Room Air 08/16/23 15:00 Room Air 08/16/23 14:00 Room Air Intake and Output 08/16/23 08/17/23 08/17/23 23:59 07:59 15:59 Intake Total 365 / 2181 610 / 610 Output Total 0 / 500 0 / 0 0 / 0 Balance 365 / 1681 610 / 610 0 / 610 Intake: Intake, Oral Amount 360 / 360 Intake, Total IV Amount 1995 250 / 250 0.9 % Sodium Chloride 1000ML 1, 365 / 1496 000 ml @ 100 mls/hr IV .Q10H JG Rx#:[id number] Azithromycin 500 mg In 0.9 % 250 / 250 Sodium Chloride 250 ml @ 250 mls/hr IV Q24H JG Rx#:[id number] Output: Output, Urine Amount 0 / 500 0 / 0 0 / 0 Other: Number of Unmeasured Voids 1 1 2 Weight 77.428 kg Patient Weight 08/17/23 23:59 Weight 77.428 kg Laboratory Results - last 24 hr 08/16/23 17:16: POC Glucose 132 H 08/16/23 20:17: POC Glucose 129 H 08/17/23 05:13: POC Glucose 155 H 08/17/23 07:20: WBC 13.1 H, RBC 4.18 L, Hgb 11.1 L, Hct 33.6 L, MCV 80.3 L, MCH 26.6 L, MCHC 33.1, RDW 16.4, Plt Count 251, MPV 7.4, Neut % (Auto) 81.8 H, Lymph % (Auto) 12.8, Graves % (Auto) 4.4, Eos % (Auto) 0.8, Baso % (Auto) 0.3, Neut # (Auto) 10.7 H, Lymph # (Auto) 1.7, Graves # (Auto) 0.6, Eos # (Auto) 0.1, Baso # (Auto) 0.0, Sodium 133 L, Potassium 3.5, Chloride 104, Carbon Dioxide 25, Anion Gap 7.5, BUN 12 D, Creatinine 0.90, Estimated Creat Clear 59, Estimated GFR 61, Est GFR ( Amer) 74, Glucose 130 H, Calcium 8.2 L, Magnesium 1.8 D, Total Bilirubin 0.4, AST 31, ALT 25, Alkaline Phosphatase 74, Total Protein 6.2 L, Albumin 3.4 L, Globulin 2.8, Albumin/Globulin Ratio 1.2 08/17/23 11:31: POC Glucose 147 H I & O for Labs for Last 24 Hours: Intake & Output 08/14/23 08/15/23 08/16/23 08/17/23 23:59 23:59 23:59 23:59 Intake Total 1931 / 2181 610 / 610 Output Total 500 / 500 0 / 0 Balance 1431 / 1681 610 / 610 Weight 73.437 kg 73.437 kg 77.428 kg Constitutional: Present no acute distress, obese, chronically ill appearing and cooperative Head: Present atraumatic and normocephalic ENT: Present normal exam Neck: Present normal inspection Respiratory: Present normal respiratory effort; Absent rhonchi, wheezes or crackles Cardiac: Present Reg Rate and Rhythm GI: Present soft, tenderness (Improving. Minimal upper abdomen, no guarding or rebound) and normal bowel sounds; Absent distention Extremities: Present normal inspection and full ROM Skin: Present intact; Absent erythema Neuro: Present Grossly Intact, alert, awake and moves all extremities Comment:: Oriented to self and place. 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 Blood pressure showing slow improvement. Advancing oral regimen today. Abdominal pain improving. Continues to require inpatient management. Imaging ordered for the morning. Problems addressed as follows: Hypertensive urgency Essential hypertension Telemetry monitoring Increase irbesartan to 300 mg daily, initiate amlodipine, increase to 10 mg daily. Add carvedilol 3.125 mg twice daily. Initiate HCTZ 25 mg daily. Monitor for improvement in blood pressure. -Echo ordered for the morning. Renal artery duplex pending. -Cardiology consulted to assist with follow-up as an outpatient and further adjustments - Electrolytes with slight abnormality, potassium 3.5, magnesium 1.8. - Repeat CBC, CMP, magnesium ordered for the morning Gastroenteritis Intractable abdominal pain CT abdomen and pelvis with gastroenteritis noted White cell count 13.1. Remains afebrile. Tolerating p.o. intake. GI cocktail for pain every 6 hours as needed. Clear liquid diet IV azithromycin IV antiemetics Continue pantoprazole 40 mg daily [id number] Most likely JOE Chronic hyponatremia Outpatient follow-up with gastroenterology Accurate I's and O's ED LFTs normal Diabetes Routine blood sugar monitoring Sliding scale insulin therapy Carbohydrate controlled clear liquid diet Hypothyroidism: TSH pending, continue levothyroxine 88 mcg daily Memory impairment Routine nursing interaction Continue memantine 10 mg twice daily, Seroquel 200 mg night sleep, donepezil 10 mg daily PT and OT consulted to evaluate for placement versus home with home health. Full code Clear liquid diet
[2023-08-17] MEDS: hydroCHLOROthiazide 25MG TABLET 25 MG PO (13:56)
[2023-08-17 14:20] LABS: Thyroid Stimulating Hormone 2.77 uIU/mL (0.465-4.68)
--- NOTE | 2023-08-17 16:07 | PC.NURSE ---
Addendum entered by Anum Garza RN 08/17/23 16:09: Pt reports no pain, no headache, no blurred vision or spots in her eyes. Original Note: BP was high fro 1600 vitals in her left arm. This RN notified MD Hu. He wanted a BP on other arm. BP on other am remains high but was slightly lower. Notified of BP.
[2023-08-17] MEDS: cloNIDine 0.1MG TABLET 0.100000000000000006 MG PO (16:19)
[2023-08-17 16:31] LABS: POC Glucose,Bedside 131 (70-110)
--- NOTE | 2023-08-17 18:31 | PC.NURSE ---
Pt has done well this shift. BP is now WNL. Pt has ambulated in room with standby assist.
[2023-08-17 19:57] LABS: POC Glucose,Bedside 172 (70-110)
[2023-08-17] MEDS: AZITHROMYCIN 500 MG in 0.9 % SODIUM CHLORIDE 250 ML 250 MG IV (20:20)
[2023-08-18] VITALS (20 sets, daily range): BP systolic 113–185; BP diastolic 39–95; PULSE 62–96; RESP 16–21; TEMP 36.6–37; O2SAT 95–98; BMI 31.8
[2023-08-18] MEDS: MORPHINE 4MG/ML SYRINGE 4 MG IV (04:03)
--- NOTE | 2023-08-18 05:41 | PC.NURSE ---
a&ox4. pt rested well through the night. room air. voiding well. received iv abx. elevated bp with some abdominal pain, medicated per jun.
[2023-08-18 05:55] LABS: POC Glucose,Bedside 174 (70-110)
[2023-08-18] MEDS: LEVOTHYROXINE 88MCG (0.088MG) TAB 88 MCG PO (06:13)
[2023-08-18] MEDS: humaLOG 100 UNITS/ML 3ML VIAL (SSI) SQ ×4 (06:13→20:16)
--- NOTE | 2023-08-18 06:31 | ECG_ITS ---
APPROVED REPORT Exam: Resting ECG HR:63 bpm ECG Measurements Heart Rate 63 AXES HI 154 P 81 QRSd 120 QRS -27 QT 443 T 64 QTc 451 Conclusion SINUS RHYTHM BORDERLINE LEFT AXIS DEVIATION [QRS AXIS < -20] MODERATE INTRAVENTRICULAR CONDUCTION DELAY [110+ ms QRS DURATION] NONSPECIFIC ST & T-WAVE ABNORMALITY BORDERLINE ECG UNCONFIRMED REPORT Electronically signed by : Sravan Anderson MD 08/19/2023 20:38:30
[2023-08-18 06:41] LABS: Basophils % 0.3 % (0.1-2.0); Eosinophils # 0.1 K/mm3 (0.0-0.4); Eosinophils % 1.2 % (0.1-12.0); Hematocrit 31.3 % (37.0-47.0); Hemoglobin 10.2 g/dL (12.2-16.2); Lymphocytes # 1.3 K/mm3 (0.7-4.5); Lymphocytes % 15.3 % (10-50); Mean Corpuscular HGB Conc 32.7 g/dL (31.8-35.4); Mean Corpuscular Hemoglobin 26.2 pg (27.0-31.2); Mean Corpuscular Volume 80.3 fl (81-99); Mean Platelet Volume 7.2 fl (7.4-10.4); Monocytes # 0.4 K/mm3 (0.1-1.0); Monocytes % 4.7 % (1.7-9.3); Neutrophils # 6.6 K/mm3 (1.8-7.8); Neutrophils % 78.5 % (37.0-80.0); Platelet Count 198 K/mm3 (142-424); Red Cell Distribution Width 16.3 % (11.5-17.5); White Blood Count 8.5 K/mm3 (4.8-10.8)
[2023-08-18 06:45] LABS: Chloride 100 mmol/L (98-107)
[2023-08-18 06:46] LABS: Potassium 3.2 mmoL/L (3.5-5.1); Sodium 130 mmol/L (136-145)
[2023-08-18 06:48] LABS: Alanine Aminotransferase 15 U/L (12-78); Alkaline Phosphatase 79 U/L (38-126); Anion Gap 4.2 mEq/L (5-15); Aspartate Amino Transferase 23 U/L (14-36); Bilirubin,Total 0.4 mg/dl (0.2-1.3); Blood Urea Nitrogen 13 mg/dl (7-17); Calcium 8.6 mg/dl (8.4-10.2); Carbon Dioxide 29 mmol/L (22.0-30.0); Creatinine Clearance Estimated 59 mL/min (50-200); Estimated Glomerular Filt Rate 54 ml/min (>60); GFR (African American) 65 ML/MIN (>60); Glucose 155 mg/dl (74-100)
[2023-08-18 06:49] LABS: Albumin Level 3.1 g/dl (3.5-5.0); Albumin/Globulin Ratio 1.1 (1.1-1.8); Globulin 2.7 g/dL (1.3-3.2); Magnesium 1.6 mg/dl (1.6-2.3); Total Protein,Serum 5.8 g/dl (6.3-8.2)
[2023-08-18] MEDS: CARVEDILOL 6.25MG TABLET 6.25 MG PO (08:35)
[2023-08-18] MEDS: CITALOPRAM 40MG TABLET 40 MG PO (08:35)
[2023-08-18] MEDS: AMLODIPINE 5MG TABLET 10 MG PO (08:35)
[2023-08-18] MEDS: ENOXAPARIN 40MG/0.4ML SYRINGE 40 MG SQ (08:36)
[2023-08-18] MEDS: hydroCHLOROthiazide 25MG TABLET 25 MG PO (08:37)
[2023-08-18] MEDS: IRBESARTAN 300MG TABLET 300 MG PO (08:37)
[2023-08-18] MEDS: MEMANTINE 10MG TABLET 10 MG PO ×2 (08:37→20:12)
[2023-08-18] MEDS: PANTOPRAZOLE 40MG TABLET 40 MG PO (08:46)
[2023-08-18] MEDS: DONEPEZIL 10MG TAB 10 MG PO (08:52)
--- NOTE | 2023-08-18 09:26 | CA_ITS ---
FINAL REPORT TECHNIQUE: Spectral and color Doppler exam CLINICAL HISTORY: HTN,HLD,DM FINDINGS: DOPPLER RENAL VESSELS HISTORY: Hypertension . FINDINGS: Intrarenal resistive indices on the right are 0.82, normal . Intrarenal resistive indices on the left are 0.79, normal . Renal size is normal and symmetric. Right main renal artery systolic velocity: 119.6 cm/sec. Aortic-right renal artery flow velocity ratio: 0.85 COMMENT: No evidence of hemodynamically significant renal artery stenosis . Left main renal artery systolic velocity: 38.4 cm/sec. Aortic-left renal artery flow velocity ratio: 4.3 COMMENT: No evidence of hemodynamically significant renal artery stenosis . IMPRESSION: Proximal renal arteries not visualized, otherwise no evidence of hemodynamically significant renal artery stenosis CTA or gadolinium-enhanced MR may be considered as a more sensitive exam. Alternatively noncontrast MRI may be considered for assessing main renal arteries for stenosis as a more sensitive exam if the patient has renal insufficiency. Reviewed, Interpreted and Dictated by Jeremías Persaud MD Transcribed by Kathy Salazar Authenticated and [facility]
--- NOTE | 2023-08-18 09:54 | HMH.OTEV ---
OT Inpatient Evaluation Rehab OT IP Evaluation Start: 08/17/23 13:39 Freq: ONCE Status: Active Protocol: Document 08/18/23 09:49 DANIELAISRAEL (Rec: 08/18/23 09:54 LATISHA [id number]) Rehab OT IP Assessment Subjective History This is a 77-year-old female that is accompanied by her of 59 years to [facility] emergency department for the second time in 48 hours. She presented to the ED yesterday with abdominal pain and after an extensive workup and objective evaluation she was discharged. She reports she started experiencing diarrhea today approximately 4 episodes characterized as green and liquidy with crescendo diffuse abdominal pain. She reports her pain is constant but is worsened with tenesmus and evacuation. She rates the pain as a 10 on a 1-10 pain scale. She reports that it is across her lower abdomen but radiates to her epigastrium as well. She describes nausea and 1 episode of emesis yesterday. She reports no p.o . intake today. There is been no associated jaundice, fever , chills, syncope, falls or confusion. She reports a past medical history of a fall with subdural hematoma and posttraumatic brain injury with memory impairment. Her assists with the history. They report routine evaluations with her local doctor and described a colonoscopy in 2018. In the ED her presenting blood pressure identify systolics greater than 200 and diastolics greater than 100. She is afebrile and saturating appropriately on room air. Laboratory evaluation identifies a leukocytosis with a normal hemoglobin and platelet count. Her lactic acid is negative her LFTs are normal, her lipase is normal and her urinalysis identifies no infectious process. CT of the abdomen pelvis is consistent with cirrhosis, no ascites and gastroenteritis. Deepthi been going to the bathroom by myself all morning . Subjective Analysis Patient's safety awareness and balance during transfers, bed mobility, fx'l mobility, and ADLs during initial evaluation. Independent with all tasks. Objective Patient Orientation Person,Name,Age,Birthday,Year Right Upper Extremity Gross ROM WFL Bed Mobility bed mobility - supine/sit Assist Level Independent Transfer Training Sit/Stand/Pivot Transfer Assist Level Independent Chair Transfer Ability Independent Chair Transfer Technique Sit to/from Ambulatory Chair Transfer Assistive Devices Rolling Walker Rehab OT IP prob,goals,plan Problems Date of Evaluation: 08/18/23 Rehab Potential Rehab Potential Innapropriate for Skilled Therapy Discharge Plan OT Discharge Plan Patient appears to be at baseline. Independent with ADLs and fx'l mobility. Eval Complexity Eval Charge Codes 20034 - Low Complexity PHYSICIAN CERTIFICATION: I certify the specified therapy services for Yuki Barraza are required, authorized, and reviewed every 30 days.
[2023-08-18 11:03] LABS: POC Glucose,Bedside 168 (70-110)
--- NOTE | 2023-08-18 11:52 | HMH.PTEV ---
Physical Therapy Evaluation Rehab PT IP Evaluation Start: 08/17/23 13:39 Freq: ONCE Status: Active Protocol: Document 08/18/23 11:46 DWAYNE (Rec: 08/18/23 11:52 [email or web address] [email or web address]) Subjective/History History History This is a 77-year-old female that is accompanied by her of 57 years to [facility] emergency department for the second time in 48 hours. She presented to the ED yesterday with abdominal pain and after an extensive workup and objective evaluation she was discharged. She reports she started experiencing diarrhea today approximately 4 episodes characterized as green and liquidy with crescendo diffuse abdominal pain. She reports her pain is constant but is worsened with tenesmus and evacuation. She rates the pain as a 10 on a 1-10 pain scale. She reports that it is across her lower abdomen but radiates to her epigastrium as well. She describes nausea and 1 episode of emesis yesterday. She reports no p.o . intake today. There is been no associated jaundice, fever , chills, syncope, falls or confusion. She reports a past medical history of a fall with subdural hematoma and posttraumatic brain injury with memory impairment. Her assists with the history. They report routine evaluations with her local doctor and described a colonoscopy in 2018. In the ED her presenting blood pressure identify systolics greater than 200 and diastolics greater than 100. She is afebrile and saturating appropriately on room air. Laboratory evaluation identifies a leukocytosis with a normal hemoglobin and platelet count. Her lactic acid is negative her LFTs are normal, her lipase is normal and her urinalysis identifies no infectious process. CT of the abdomen pelvis is consistent with cirrhosis, no ascites and gastroenteritis. Subjective Subjective Pt was IND with functional mobility and ADLs prior to admission. No AD use. I've been walking to the bathroom by myself all morning New diagnosis of cancer in past 12 No months? Rehab PT IP Eval Objective Appearance Patient Behavior Appropriate,Cooperative Patient Orientation Person,Situation Difficulty following instructions none Speech Pattern Clear Ambulation Patient Able to Ambulate Yes Ambulation Observation IP General Gait Pattern Observation No Deviations/Normal Ambulation Distance (feet) 20 Ambulation Assistive Device None Ambulation Ability Independent Balance Ability to Arise Able, w/o using arms Sitting Balance Steady, safe Standing Balance Steady, wide stance Transfers Bed Transfer Ability Independent Sit to Stand Bed Transfer Ability Independent Rehab PT IP prob,goals,plan Problems Date of Evaluation: 08/18/23 Rehab Potential Rehab Potential Innapropriate for Skilled Therapy Discharge Plan PT Discharge Plan Pt safe to d/c home when deemed medically necessary d/t current level of mobility, home set-up, and family support. Pt not appropriate for skilled acute care PT at this time d/t pt?s mobility being at baseline. Eval Complexity Eval Charge Codes 51150 - Low Complexity PHYSICIAN CERTIFICATION: I certify the specified therapy services for Yuki Barraza are required, authorized, and reviewed every 30 days.
--- NOTE | 2023-08-18 12:55 | EXP.CARD.CON ---
History of Present Illness History of Present Illness Consult date: 08/18/23 Requesting physician: Flo Wynn Chief complaint: hypertension and abdominal pain History of present illness: This is a 77-year-old white female who presented to the emergency department with complaints of abdominal pain. The patient had been to the emergency department twice within 24 hours for the abdominal pain and was subsequently admitted to the hospital. The patient states that she had been having abdominal pain since early last week. She states that this was a very sharp sensation throughout her entire abdomen. She did report having at least 4 episodes of diarrhea that was a green liquid. She states that she was nauseated and had 1 episode of emesis. She states that when she originally came to the emergency department she was evaluated and sent home but then her symptoms significantly worsen and she came back to the emergency department and was admitted. When she came back to the emergency department the second time her blood pressure was greater than 200 systolic and greater than 100 diastolic. She was started on a Cardene drip and did have improvement in her blood pressure. She is now off of the Cardene drip and her blood pressure remains slightly elevated but is under much better control. She does have a past medical history of a fall with a subdural hematoma and posttraumatic brain injury as well as memory impairment. The patient had a CTA of her abdomen and pelvis which did show moderate bilateral renal artery stenosis as well as dense calcifications of the aorta. She states that when her blood pressure is malignantly elevated she does feel pressure and tightness in her chest. She states it does not radiate and it resolves once her blood pressure is back down to a normal range. She denies any shortness of breath or lower extremity edema. She denies any fever, chills, nausea, vomiting, diarrhea, PND or orthopnea at this time. She states that her abdominal pain has improved significantly. She has started to eat food without having significant abdominal symptoms. [facility] Disclaimer: The information contained in this section may have been updated after the patient was seen, as this information can be updated by other users. Medical History (Updated 08/18/23 @ 13:03 by Delia Rolle APRN) Hypertensive urgency Gastroenteritis Claudication Calcification of aorta Chest tightness Renal artery stenosis Renovascular hypertension Afib Rotator cuff arthropathy of both shoulders COVID-19 Subdural hematoma Anxiety Diabetes mellitus, type 2 Hyperlipidemia Hypertension Surgical History Total knee replacement status Previous back surgery History of hysterectomy History of cholecystectomy History of appendectomy Social History Smoking Status: Never smoker alcohol intake: never current occupational status: retired Travel in the last 8 weeks: None household members: spouse housing: house current occupational exposures/hazards: No caffeine: Yes Review of Systems Review of Systems Review of systems:: pertinent systems reviewed and negative unless documented below Constitutional Constitutional: Reports system reviewed and no additional complaints, except as documented Eyes Eyes: Reports system reviewed and no additional complaints, except as documented ENT Ears, Nose, Mouth, and Throat: Reports system reviewed and no additional complaints, except as documented *Cardiovascular Cardiovascular: Reports system reviewed and no additional complaints, except as documented, Reports chest pain, Reports chest pain at rest, Reports chest pain with activity, Denies dyspnea and Denies leg edema *Respiratory Respiratory: Reports system reviewed and no additional complaints, except as documented and Denies dyspnea *Gastrointestinal Gastrointestinal: Reports system reviewed and no additional complaints, except as documented, Reports abdominal pain, Reports loose stools and Reports nausea *Genitourinary Genitourinary: Reports system reviewed and no additional complaints, except as documented *Musculoskeletal Musculoskeletal: Reports system reviewed and no additional complaints, except as documented Integumentary/Breasts Skin/Breast: Reports system reviewed and no additional complaints, except as documented *Neurologic Neurologic: Reports system reviewed and no additional complaints, except as documented and Denies confusion Psychiatric Psychiatric: Reports system reviewed and no additional complaints, except as documented and Denies confusion Endocrine Endocrine: Reports system reviewed and no additional complaints, except as documented Hematologic/Lymphatic Hematologic/Lymphatic: Reports system reviewed and no additional complaints, except as documented Allergic/Immunologic Allergic/Immunologic: Reports system reviewed and no additional complaints, except as documented Exam Data for Last 24 hours Vital signs and Labs for Last 24 Hours: Temp Pulse Resp BP Pulse Ox O2 Del Method O2 Flow Rate 97.9 F 69 18 179/60 H 95 Room Air 1 08/18/23 11:58 08/18/23 11:58 08/18/23 11:58 08/18/23 11:58 08/18/23 11:58 08/18/23 12:52 08/16/23 16:00 Laboratory Results - last 24 hr 08/17/23 07:20: TSH 2.77 08/17/23 16:20: POC Glucose 131 H 08/17/23 19:49: POC Glucose 172 H 08/18/23 05:48: POC Glucose 174 H 08/18/23 05:50: WBC 8.5 D, RBC 3.90 L, Hgb 10.2 L, Hct 31.3 L, MCV 80.3 L, MCH 26.2 L, MCHC 32.7, RDW 16.3, Plt Count 198, MPV 7.2 L, Neut % (Auto) 78.5, Lymph % (Auto) 15.3, [place] % (Auto) 4.7, Eos % (Auto) 1.2, Baso % (Auto) 0.3, Neut # (Auto) 6.6, Lymph # (Auto) 1.3, [place] # (Auto) 0.4, Eos # (Auto) 0.1, Baso # (Auto) 0.0, Sodium 130 L, Potassium 3.2 L, Chloride 100, Carbon Dioxide 29, Anion Gap 4.2 L, BUN 13, Creatinine 1.00, Estimated Creat Clear 59, Estimated GFR 54 L, Est GFR ( Amer) 65, Glucose 155 H, Calcium 8.6, Magnesium 1.6 D, Total Bilirubin 0.4, AST 23 D, ALT 15 D, Alkaline Phosphatase 79, Total Protein 5.8 L, Albumin 3.1 L, Globulin 2.7, Albumin/Globulin Ratio 1.1 08/18/23 10:53: POC Glucose 168 H I & O for Last 24 hours: Intake & Output 08/15/23 08/16/23 08/17/23 08/18/23 23:59 23:59 23:59 23:59 Intake Total 1930 / 2181 1330 / 1680 740 / 740 Output Total 500 / 500 250 / 250 0 / 0 Balance 1431 / 1681 1080 / 1430 740 / 740 Weight 161 lb 14.4 oz 161 lb 14.4 oz 170 lb 11.2 oz 168 lb 11.163 oz Constitutional Constitutional: no acute distress and average body habitus *Routine HEENT Exam Head: Present normocephalic and atraumatic ENT: Present mucous membranes moist *Routine Neck Exam Neck: Present supple, full ROM and normal carotid upstroke; Absent JVD, carotid bruit or lymphadenopathy *Routine Respiratory Exam Respiratory: Present CTA bilaterally, normal respiratory effort, able to speak in complete sentences and symmetric chest movement *Routine Cardiovascular Exam Cardiovascular: Present RRR, Normal S1, Normal S2 and murmur; Absent gallop *Routine Abdominal Exam Abdominal: Present soft and normoactive bowel sounds; Absent tenderness, distended or organomegaly *Routine Extremities Exam Extremities: Present full ROM, pulses intact and normal capillary refill; Absent cyanosis, clubbing or edema *Routine Skin Exam Skin: Present intact and warm; Absent erythema *Routine Neurological Exam Neurological: Present alert, oriented X3 and CN II-XII intact; Absent sensory deficit or motor deficit Routine Psychiatric Exam Psychiatric: Present normal affect Meds Home Medications and Allergies Home Medications Medication Instructions Recorded Confirmed Type losartan 100 mg tablet 100 mg PO HS High blood pressure 06/26/18 08/15/23 History memantine 10 mg tablet 10 mg PO BID Memory 06/26/18 08/15/23 History pravastatin 80 mg tablet 80 mg PO HS Cholesterol 06/26/18 08/15/23 History famotidine 20 mg tablet 20 mg PO BID Acid Reflux 03/10/20 08/15/23 History donepezil 10 mg tablet 10 mg PO DAILY Memory 01/23/23 08/15/23 History escitalopram oxalate 20 mg tablet 20 mg PO DAILY 01/23/23 08/15/23 History levothyroxine 88 mcg tablet 88 mcg PO DAILYDM Thyroid 01/23/23 08/15/23 History sitagliptin phosphate 50 1 tab PO BIDWMEAL Diabetes 01/23/23 08/15/23 History mg-metformin 1,000 mg tablet (Aprdarryl) aspirin 81 mg tablet,delayed 81 mg PO DAILY #90 tabs 02/03/23 08/15/23 Rx release amlodipine 5 mg tablet 5 mg PO DAILY 08/16/23 08/16/23 History quetiapine 200 mg tablet 200 mg PO HS 08/16/23 08/16/23 History New Prescriptions to Start Prescriptions: Allergies Allergy/AdvReac Type Severity Reaction Status Date / Time hydroxyzine [HYDROXYZINE] Allergy Unknown Unknown Verified 05/15/23 14:11 allergy reaction meperidine [From DEMEROL] Allergy Unknown Unknown Verified 05/15/23 14:11 allergy reaction rosuvastatin [From CRESTOR] Allergy Unknown Unknown Verified 05/15/23 14:11 allergy reaction Assessment and Plan *Assessment and plan (1) Renovascular hypertension: Status: Acute Category: Medical Code(s): I15.0 - Renovascular hypertension (2) Renal artery stenosis: Status: Acute Category: Medical Code(s): I70.1 - Atherosclerosis of renal artery (3) Chest tightness: Status: Acute Category: Medical Code(s): R07.89 - Other chest pain (4) Calcification of aorta: Status: Acute Category: Medical Code(s): I70.0 - Atherosclerosis of aorta (5) Claudication: Status: Acute Category: Medical Code(s): I73.9 - Peripheral vascular disease, unspecified (6) Gastroenteritis: Status: Acute Category: Medical Code(s): K52.9 - Noninfective gastroenteritis and colitis, unspecified (7) Hypertensive urgency: Status: Acute Category: Medical Code(s): I16.0 - Hypertensive urgency (8) Hyperlipidemia: Status: Acute Qualifiers: Hyperlipidemia type: mixed hyperlipidemia Qualified Code(s): E78.2 - Mixed hyperlipidemia Category: Medical Code(s): E78.5 - Hyperlipidemia, unspecified (9) Diabetes mellitus, type 2: Status: Acute Qualifiers: Diabetes mellitus senior care insulin use: without watermelon inspector use Diabetes mellitus complication status: without complication Qualified Code(s): E11.9 - Type 2 diabetes mellitus without complications Category: Medical Code(s): E11.9 - Type 2 diabetes mellitus without complications Plan Plan: 1. The patient was admitted to the hospital with hypertensive urgency. She was started on a Cardene drip with reduction in her blood pressure. She is now currently on oral Norvasc, carvedilol, HCTZ and irbesartan. She is still having spikes in her blood pressure but overall her blood pressure is under better control. Her blood pressure was 185/95 this morning. CTA of the abdomen did show dense calcification of the aorta with moderate bilateral renal artery stenosis. Renal duplex showed that the proximal renal arteries were not visualized but otherwise no significant hemodynamically significant renal artery stenosis. However other modalities were recommended for further evaluation. 2. Will plan to proceed with renal angiogram today for further evaluation of her renal artery stenosis due to her malignantly elevated blood pressure. 3. The patient has been educated the risk and benefits of proceeding with renal angiogram. The patient verbalized understanding and is agreeable to proceeding with the procedure. 4. The patient does complain of having cramping in her legs when she walks. She states that this happens very frequently but has not happened since she has been in the hospital. However, the patient has not been up ambulating since she has been in the hospital. This is likely claudication. The patient also has dense calcification of the abdominal aorta. At the time of her renal angiogram we will also proceed with bilateral iliofemoral runoff to evaluate for PAD. 5. The patient has been educated the risk and benefits of proceeding with the bilateral iliofemoral runoff. The patient verbalized understanding is agreeable proceeding with that procedure. 6. The patient will be n.p.o. in preparation for renal angiogram and lower extremity runoff. 7. The patient's echocardiogram shows a normal EF with mild MR, mild mitral stenosis and moderate aortic stenosis. She does have an elevated RVSP at 70 mmHg. Stop HCTZ and start Lasix 40 mg IV twice daily for aggressive diuresis secondary to her elevated RVSP. This will likely also help to improve her blood pressure. 8. Continue Norvasc and irbesartan. 9. Her blood pressure is elevated. Will increase her Coreg to 12-1/2 mg p.o. twice daily for better blood pressure control. 10. The patient is hypokalemic. Will start her on spironolactone 50 mg p.o. daily in addition to the Lasix to help spare her potassium. 11. Will repeat a BMP and lipid panel in the morning. 12. Further recommendations will be made pending the patient's response to treatment and the results of her renal angiogram and runoff today. Thank you for the opportunity to help participate the care of this patient. All recommendations and orders are per Dr. Moncada.
[2023-08-18] MEDS: LIDOCAINE 1% 10ML MDV 20 ML IJ (13:15)
[2023-08-18] MEDS: diphenhydrAMINE 50MG/ML VIAL 50 MG IV (13:15)
[2023-08-18] MEDS: MIDAZOLAM HCL 1MG/1ML 5ML VIAL 1 MG IV (13:15)
[2023-08-18] MEDS: FENTANYL 100MCG/2ML VIAL 50 MCG IV (13:16)
[2023-08-18] MEDS: HYDRALAZINE 20MG/ML VIAL 20 MG IV (13:47)
[2023-08-18] MEDS: IOPAMIDOL-250 (51%) 100ML BOT 140 ML IV (14:20)
[2023-08-18] MEDS: SPIRONOLACTONE 25MG TABLET 50 MG PO (16:10)
[2023-08-18] MEDS: FUROSEMIDE 40MG/4ML VIAL 40 MG IV (16:11)
[2023-08-18 16:28] LABS: POC Glucose,Bedside 153 (70-110)
--- NOTE | 2023-08-18 16:41 | EXP.PN ---
Subjective *Date: 08/18/23 *Time: 16:41 Interval history: patient is seen at bedside, complains of blood pressure fluctuatiuons, denied CP, SOB, N/V Exam Data for Last 24 hours Vital signs and Labs for Last 24 Hours: Temp Pulse Resp BP Pulse Ox O2 Del Method O2 Flow Rate 98.3 F 69 16 127/58 L 98 Room Air 1 08/18/23 14:20 08/18/23 15:05 08/18/23 15:05 08/18/23 15:05 08/18/23 15:05 08/18/23 15:05 08/16/23 16:00 Laboratory Results - last 24 hr 08/17/23 19:49: POC Glucose 172 H 08/18/23 05:48: POC Glucose 174 H 08/18/23 05:50: WBC 8.5 D, RBC 3.90 L, Hgb 10.2 L, Hct 31.3 L, MCV 80.3 L, MCH 26.2 L, MCHC 32.7, RDW 16.3, Plt Count 198, MPV 7.2 L, Neut % (Auto) 78.5, Lymph % (Auto) 15.3, [place] % (Auto) 4.7, Eos % (Auto) 1.2, Baso % (Auto) 0.3, Neut # (Auto) 6.6, Lymph # (Auto) 1.3, [place] # (Auto) 0.4, Eos # (Auto) 0.1, Baso # (Auto) 0.0, Sodium 130 L, Potassium 3.2 L, Chloride 100, Carbon Dioxide 29, Anion Gap 4.2 L, BUN 13, Creatinine 1.00, Estimated Creat Clear 59, Estimated GFR 54 L, Est GFR ( Amer) 65, Glucose 155 H, Calcium 8.6, Magnesium 1.6 D, Total Bilirubin 0.4, AST 23 D, ALT 15 D, Alkaline Phosphatase 79, Total Protein 5.8 L, Albumin 3.1 L, Globulin 2.7, Albumin/Globulin Ratio 1.1 08/18/23 10:53: POC Glucose 168 H 08/18/23 16:16: POC Glucose 153 H I & O for Last 24 hours: Intake & Output 08/15/23 08/16/23 08/17/23 08/18/23 23:59 23:59 23:59 23:59 Intake Total 1930 / 2181 1330 / 1680 740 / 740 Output Total 500 / 500 250 / 250 0 / 0 Balance 1431 / 1681 1080 / 1430 740 / 740 Weight 73.437 kg 73.437 kg 77.428 kg 76.52 kg Constitutional Constitutional: no acute distress *Routine HEENT Exam Head: Present normocephalic Eye: Present EOMI and PERRL ENT: Present mucous membranes moist *Routine Neck Exam Neck: Present supple; Absent lymphadenopathy *Routine Respiratory Exam Respiratory: Present CTA bilaterally *Routine Cardiovascular Exam Cardiovascular: Present RRR *Routine Abdominal Exam Abdominal: Present soft and normoactive bowel sounds; Absent tenderness *Routine Extremities Exam Extremities: Absent cyanosis, clubbing or edema *Routine Skin Exam Skin: Present warm; Absent rash *Routine Neurological Exam Neurological: Present alert and oriented X3 Assessment and Plan *Assessment and plan (1) Hypertensive urgency: Status: Acute Category: Medical Code(s): I16.0 - Hypertensive urgency (2) Gastroenteritis: Status: Acute Category: Medical Code(s): K52.9 - Noninfective gastroenteritis and colitis, unspecified (3) Intractable abdominal pain: Status: Acute Category: Medical Code(s): R10.9 - Unspecified abdominal pain (4) Diabetes: Status: Chronic Qualifiers: Diabetes mellitus type: type 2 Diabetes mellitus long-term insulin use: without long-term use Category: Medical Code(s): E11.9 - Type 2 diabetes mellitus without complications (5) Essential hypertension: Status: Chronic Category: Medical Code(s): I10 - Essential (primary) hypertension (6) Memory impairment: Status: Chronic Category: Medical Code(s): R41.3 - Other amnesia Plan Patient is a 77-year-old female with intractable abdominal pain over 48 hours, symptoms of gastroenteritis and presenting with hypertensive urgency with a history of hypertension, diabetes, memory impairment and previous traumatic brain injury. Blood pressure showing slow improvement. Advancing oral regimen today. Abdominal pain improving. Continues to require inpatient management. Imaging ordered for the morning. Problems addressed as follows: Hypertensive urgency Essential hypertension Telemetry monitoring Increase irbesartan to 300 mg daily, initiate amlodipine, increase to 10 mg daily. Add carvedilol 3.125 mg twice daily. Initiate HCTZ 25 mg daily. Monitor for improvement in blood pressure. -Echo ordered for the morning. - pending result Renal artery duplex report below Proximal renal arteries not visualized, otherwise no evidence of hemodynamically significant renal artery stenosis plan for renal angiogram by cardiology started on IV lasix per cardiology Gastroenteritis - improved Intractable abdominal pain - improved IV antiemetics PRN Continue pantoprazole 40 mg daily [id number] Most likely JOE Chronic hyponatremia Outpatient follow-up with gastroenterology Accurate I's and O's ED LFTs normal Diabetes Routine blood sugar monitoring Sliding scale insulin therapy Carbohydrate controlled clear liquid diet Hypothyroidism: TSH pending, continue levothyroxine 88 mcg daily Memory impairment Routine nursing interaction Continue memantine 10 mg twice daily, Seroquel 200 mg night sleep, donepezil 10 mg daily PT and OT consulted to evaluate for placement versus home with home health. Full code Clear liquid diet
[2023-08-18] MEDS: POTASSIUM CHLORIDE 20MEQ TAB 40 MEQ PO (17:11)
--- NOTE | 2023-08-18 17:58 | PC.NURSE ---
Pt A&O x4, sitting up in bed. No complaints stated. VS currently stable at this time. (R) Femoral cath site with DSG in place. C/D/I. No hematoma noted. Call light within reach. Family at bedside.
[2023-08-18] MEDS: CARVEDILOL 12.5MG TABLET 12.5 MG PO (20:12)
[2023-08-18 21:01] LABS: POC Glucose,Bedside 231 (70-110)
[2023-08-19] VITALS: BP 155/63; PULSE 62; PULSE 65; RESP 18; TEMP 36.8; O2SAT 96
--- NOTE | 2023-08-19 00:52 | P.DS_ITS ---
General Admission date:: 08/15/23 Discharge date: 08/19/23 HPI HPI HPI: This is a 77-year-old female that is accompanied by her of 59 years to [facility] emergency department for the second time in 48 hours. She presented to the ED yesterday with abdominal pain and after an extensive workup and objective evaluation she was discharged. She reports she started experiencing diarrhea today approximately 4 episodes characterized as green and liquidy with crescendo diffuse abdominal pain. She reports her pain is constant but is worsened with tenesmus and evacuation. She rates the pain as a 10 on a 1-10 pain scale. She reports that it is across her lower abdomen but radiates to her epigastrium as well. She describes nausea and 1 episode of emesis yesterday. She reports no p.o. intake today. There is been no associated jaundice, fever, chills, syncope, falls or confusion. She reports a past medical history of a fall with subdural hematoma and posttraumatic brain injury with memory impairment. Her assists with the history. They report routine evaluations with her local doctor and described a colonoscopy in 2018. In the ED her presenting blood pressure identify systolics greater than 200 and diastolics greater than 100. She is afebrile and saturating appropriately on room air. Laboratory evaluation identifies a leukocytosis with a normal hemoglobin and platelet count. Her lactic acid is negative her LFTs are normal, her lipase is normal and her urinalysis identifies no infectious process. CT of the abdomen pelvis is consistent with cirrhosis, no ascites and gastroenteritis. Hospital Course Hospital Course Hospital Course: Patient is a 77-year-old female with intractable abdominal pain over 48 hours, symptoms of gastroenteritis and presenting with hypertensive urgency with a history of hypertension, diabetes, memory impairment and previous traumatic brain injury. Blood pressure improved during admission. Patient's abdominal pain resolved and she was able to advance diet. On regimen that we will need further adjustment as an outpatient but stable to discharge home. Cardiology assisted with care. Problems addressed during hospitalization as follows: Hypertensive urgency Essential hypertension Admitted for hypertensive urgency. Initially was going to be placed on a Cardene drip but had improvement prior to drip starting. Adjusted treatment with oral regimen. Discontinued home losartan and transition to irbesartan which was increased to 300 mg daily. Initiated amlodipine and titrated to 10 mg daily. Added carvedilol which was titrated to 12.5 mg twice daily. Echo obtained showing elevated RVSP of 70 mmHg. Patient was initiated on Lasix and spironolactone for diuresis and to treat hypokalemia. Showing good response to treatment. Potassium 3.3 on day of discharge. Kidney function at baseline with BUN of 16, creatinine 1.2. Would benefit from repeat labs when follows up with PCP or cardiology, whoever is first. Cardiology consulted to assist with follow- up as an outpatient and further adjustments during inpatient care. Renal artery angiogram performed with lower extremity runoff. Patient had no clinically significant stenosis necessitating stenting. Continue medical management. Blood pressure has improved, 149/73 on morning of discharge. Continue medications as ordered. Patient additionally would benefit from having her medications prepackaged. Discussed this with her and encouraged him to contact clinic pharmacy (where she currently gets her meds filled) to start this service. Gastroenteritis Intractable abdominal pain CT abdomen and pelvis with gastroenteritis noted. White cell count improved during admission, down to 7 on day of discharge. Treated with GI cocktail and antiemetics. Continue pantoprazole daily. Treated with empiric course of azithromycin during admission. Able to advance diet. No further indication for antibiotics at discharge. Abdominal pain has resolved. [id number]: Most likely JOE. Chronic hyponatremia. Recommend outpatient follow-up with gastroenterology Diabetes: A1c 6.7. Treated with sliding scale insulin during admission. Con laron Sousa at discharge, well-controlled at goal. Hypothyroidism: TSH 2.77, continue levothyroxine 88 mcg daily Memory impairment Continue memantine 10 mg twice daily, Seroquel 200 mg night sleep, donepezil 10 mg daily. PT and OT consulted to evaluated, safe to discharge home with family support Total time spent on discharge 32 minutes in counseling, documentation, chart review, and direct care with patient. Exam Data for Last 24 hours Vital signs and Labs for Last 24 Hours: Temp Pulse Resp BP Pulse Ox O2 Del Method O2 Flow Rate 98.2 F 73 18 162/60 H 96 Room Air 1 08/18/23 16:05 08/18/23 21:05 08/18/23 21:05 08/18/23 21:05 08/18/23 21:05 08/19/23 00:51 08/16/23 16:00 Laboratory Results - last 24 hr 08/18/23 05:48: POC Glucose 174 H 08/18/23 05:50: WBC 8.5 D, RBC 3.90 L, Hgb 10.2 L, Hct 31.3 L, MCV 80.3 L, MCH 26.2 L, MCHC 32.7, RDW 16.3, Plt Count 198, MPV 7.2 L, Neut % (Auto) 78.5, Lymph % (Auto) 15.3, [place] % (Auto) 4.7, Eos % (Auto) 1.2, Baso % (Auto) 0.3, Neut # (Auto) 6.6, Lymph # (Auto) 1.3, [place] # (Auto) 0.4, Eos # (Auto) 0.1, Baso # (Auto) 0.0, Sodium 130 L, Potassium 3.2 L, Chloride 100, Carbon Dioxide 29, Anion Gap 4.2 L, BUN 13, Creatinine 1.00, Estimated Creat Clear 59, Estimated GFR 54 L, Est GFR ( Amer) 65, Glucose 155 H, Calcium 8.6, Magnesium 1.6 D, Total Bilirubin 0.4, AST 23 D, ALT 15 D, Alkaline Phosphatase 79, Total Protein 5.8 L, Albumin 3.1 L, Globulin 2.7, Albumin/Globulin Ratio 1.1 08/18/23 10:53: POC Glucose 168 H 08/18/23 16:16: POC Glucose 153 H 08/18/23 20:10: POC Glucose 231 H I & O for Last 24 hours: Intake & Output 08/16/23 08/17/23 08/18/23 08/19/23 23:59 23:59 23:59 23:59 Intake Total 1931 / 2181 1330 / 1680 740 / 740 Output Total 500 / 500 250 / 250 0 / 0 Balance 1431 / 1681 1080 / 1430 740 / 740 Weight 73.437 kg 77.428 kg 76.52 kg Constitutional Constitutional: no acute distress, obese, chronically ill appearing and cooperative *Routine HEENT Exam Head: Present normocephalic Eye: Present EOMI and PERRL ENT: Present mucous membranes moist *Routine Neck Exam Neck: Present supple; Absent lymphadenopathy *Routine Respiratory Exam Respiratory: Present CTA bilaterally *Routine Cardiovascular Exam Cardiovascular: Present RRR *Routine Abdominal Exam Abdominal: Present soft and normoactive bowel sounds; Absent tenderness *Routine Extremities Exam Extremities: Absent cyanosis, clubbing or edema *Routine Skin Exam Skin: Present warm; Absent rash *Routine Neurological Exam Neurological: Present alert, oriented X3 and moving all extremities; Absent altered mental status Comments: Occasionally forgetful or defers to for answers. Results Data Completed and Pending Labs on day of discharge: Labs from last 24 hours 08/18/23 08/18/23 08/18/23 20:10 16:16 10:53 WBC RBC Hgb Hct MCV MCH MCHC RDW Plt Count MPV Neut % (Auto) Lymph % (Auto) [place] % (Auto) Eos % (Auto) Baso % (Auto) Neut # (Auto) Lymph # (Auto) [place] # (Auto) Eos # (Auto) Baso # (Auto) Sodium Potassium Chloride Carbon Dioxide Anion Gap BUN Creatinine Estimated Creat Clear Estimated GFR Est GFR ( Amer) Glucose POC Glucose 231 H 153 H 168 H Calcium Magnesium Total Bilirubin AST ALT Alkaline Phosphatase Total Protein Albumin Globulin Albumin/Globulin Ratio 08/18/23 08/18/23 05:50 05:48 WBC 8.5 D RBC 3.90 L Hgb 10.2 L Hct 31.3 L MCV 80.3 L MCH 26.2 L MCHC 32.7 RDW 16.3 Plt Count 198 MPV 7.2 L Neut % (Auto) 78.5 Lymph % (Auto) 15.3 [place] % (Auto) 4.7 Eos % (Auto) 1.2 Baso % (Auto) 0.3 Neut # (Auto) 6.6 Lymph # (Auto) 1.3 [place] # (Auto) 0.4 Eos # (Auto) 0.1 Baso # (Auto) 0.0 Sodium 130 L Potassium 3.2 L Chloride 100 Carbon Dioxide 29 Anion Gap 4.2 L BUN 13 Creatinine 1.00 Estimated Creat Clear 59 Estimated GFR 54 L Est GFR ( Amer) 65 Glucose 155 H POC Glucose 174 H Calcium 8.6 Magnesium 1.6 D Total Bilirubin 0.4 AST 23 D ALT 15 D Alkaline Phosphatase 79 Total Protein 5.8 L Albumin 3.1 L Globulin 2.7 Albumin/Globulin Ratio 1.1 DS: Diagnosis Discharge Diagnosis (1) Hypertensive urgency: Status: Acute Code(s): I16.0 - Hypertensive urgency (2) Gastroenteritis: Status: Acute Code(s): K52.9 - Noninfective gastroenteritis and colitis, unspecified (3) Intractable abdominal pain: Status: Acute Code(s): R10.9 - Unspecified abdominal pain (4) Diabetes: Status: Chronic Code(s): E11.9 - Type 2 diabetes mellitus without complications Qualifiers: Diabetes mellitus long term care social worker insulin use: without long term care social worker use Diabetes mellitus type: type 2 (5) Essential hypertension: Status: Chronic Code(s): I10 - Essential (primary) hypertension (6) Memory impairment: Status: Chronic Code(s): R41.3 - Other amnesia Meds Home Medications and Allergies Home Medications Medication Instructions Recorded Confirmed Type memantine 10 mg tablet 10 mg PO BID Memory 06/26/18 08/15/23 History pravastatin 80 mg tablet 80 mg PO HS Cholesterol 06/26/18 08/15/23 History donepezil 10 mg tablet 10 mg PO DAILY Memory 01/23/23 08/15/23 History escitalopram oxalate 20 mg tablet 20 mg PO DAILY 01/23/23 08/15/23 History levothyroxine 88 mcg tablet 88 mcg PO DAILYDM Thyroid 01/23/23 08/15/23 History sitagliptin phosphate 50 1 tab PO BIDWMEAL Diabetes 01/23/23 08/15/23 History mg-metformin 1,000 mg tablet (Aprdarryl) aspirin 81 mg tablet,delayed 81 mg PO DAILY #90 tabs 02/03/23 08/15/23 Rx release quetiapine 200 mg tablet 200 mg PO HS 08/16/23 08/16/23 History amlodipine 10 mg tablet 10 mg PO DAILY 30 days #30 tabs 08/19/23 Rx carvedilol 12.5 mg tablet 12.5 mg PO BID 30 days #60 tabs 08/19/23 Rx famotidine 20 mg tablet 20 mg PO BID PRN Acid Reflux 30 08/19/23 08/15/23 Rx days #0 tabs furosemide 80 mg tablet (Lasix) 80 mg PO DAILY #30 tabs 08/19/23 Rx irbesartan 300 mg tablet 300 mg PO DAILY 30 days #30 tabs 08/19/23 Rx pantoprazole 40 mg tablet,delayed 40 mg PO DAILY 30 days #30 tabs 08/19/23 Rx release spironolactone 25 mg tablet 50 mg (2 x 25 mg) PO DAILY 30 days 08/19/23 Rx #60 tabs New Prescriptions to Start Prescriptions: amlodipine Mayte,Art carvedilol Mayte,Art furosemide [Lasix] Mayte,Art irbesartan Mayte,Art pantoprazole Mayte,Art spironolactone Mayte,Art Allergies Allergy/AdvReac Type Severity Reaction Status Date / Time hydroxyzine [HYDROXYZINE] Allergy Unknown Unknown Verified 05/15/23 14:11 allergy reaction meperidine [From DEMEROL] Allergy Unknown Unknown Verified 05/15/23 14:11 allergy reaction rosuvastatin [From CRESTOR] Allergy Unknown Unknown Verified 05/15/23 14:11 allergy reaction Discharge Plan Disposition Patient Disposition: Home, Self-Care Condition: Fair Follow up Plan Follow up with: Sravan Anderson MD [Primary Care Provider] - 08/25/23 10:30 am Henry Moncada MD [Staff Physician] - 08/26/23 11:00 am Prescriptions/Medication Reconciliation: New carvedilol 12.5 mg Tablet 12.5 mg PO BID 30 Days Qty: 60 0RF amlodipine 10 mg Tablet 10 mg PO DAILY 30 Days Qty: 30 0RF spironolactone 25 mg Tablet 50 mg PO DAILY 30 Days Qty: 60 0RF pantoprazole 40 mg Tablet,Delayed Release (Dr/Ec) 40 mg PO DAILY 30 Days Qty: 30 0RF irbesartan 300 mg Tablet 300 mg PO DAILY 30 Days Qty: 30 0RF furosemide [Lasix] 80 mg tablet 80 mg PO DAILY Qty: 30 0RF Continued pravastatin 80 MG tablet 80 mg PO HS memantine 10 MG tablet 10 mg PO BID quetiapine 200 mg tablet 200 mg PO HS Patient Comments: TAKE 1 TO 2 TABLETS BY MOUTH ONCE DAILY AT BEDTIME FOR 30 DAYS donepezil 10 mg tablet 10 mg PO DAILY Patient Comments: TAKE 1 TABLET BY MOUTH ONCE DAILY WITH A MEAL levothyroxine 88 mcg tablet 88 mcg PO DAILYDM Patient Comments: TAKE 1 TABLET BY MOUTH ONCE DAILY escitalopram oxalate 20 mg tablet 20 mg PO DAILY Patient Comments: TAKE 1 TABLET BY MOUTH ONCE DAILY Janumet 50-1,000 mg tablet 1 tab PO BIDWMEAL Patient Comments: TAKE 1 TABLET BY MOUTH TWICE DAILY aspirin 81 mg tablet,delayed release (DR/EC) 81 mg PO DAILY Qty: 90 0RF Changed famotidine 20 MG tablet 20 mg PO BID PRN (Reason: Acid Reflux) 30 Days Qty: 0 0RF Discontinued losartan 100 MG tablet 100 mg PO HS amlodipine 5 mg tablet 5 mg PO DAILY Patient Comments: TAKE 1 TABLET BY MOUTH ONCE DAILY Problem Reconciliation Problems Reviewed?: Yes Patient Discharge Instructions ACTIVITY: Continue current activity and Ambulate as tolerated DIET: continue same diet Patient Instructions: Essential Hypertension, DI for Viral Gastroenteritis -- Adult, DI for Surgical Site Infection Providers Primary Care Provider: Sravan Anderson Admit Provider: Art Hu Attending Provider: Art Hu
[2023-08-19 04:00] VITALS: BP 149/73; PULSE 60; PULSE 65; RESP 18; TEMP 36.6; O2SAT 96; BMI 32.1
--- NOTE | 2023-08-19 04:24 | PC.NURSE ---
Pt has slept well throughout the night. She has requested for the bed alarm to be off but will call for assistance before getting OOB; pt has steady gait but does need standby assist. Right groin site dressing C/D/I; no complaints of pain. Blood pressure has run 150s-170s systolic this shift; pt states she can feel when it gets really high by a pain in her chest which she has not had this shift.
[2023-08-19] MEDS: LEVOTHYROXINE 88MCG (0.088MG) TAB 88 MCG PO (05:57)
[2023-08-19] MEDS: humaLOG 100 UNITS/ML 3ML VIAL (SSI) SQ (05:59)
[2023-08-19 06:06] LABS: POC Glucose,Bedside 165 (70-110)
[2023-08-19 06:23] LABS: Basophils % 0.4 % (0.1-2.0); Eosinophils # 0.1 K/mm3 (0.0-0.4); Hematocrit 33.8 % (37.0-47.0); Hemoglobin 11.1 g/dL (12.2-16.2); Lymphocytes # 1.8 K/mm3 (0.7-4.5); Lymphocytes % 25.6 % (10-50); Mean Corpuscular HGB Conc 32.9 g/dL (31.8-35.4); Mean Corpuscular Volume 79.2 fl (81-99); Mean Platelet Volume 7.6 fl (7.4-10.4); Monocytes # 0.4 K/mm3 (0.1-1.0); Neutrophils # 4.6 K/mm3 (1.8-7.8); Platelet Count 242 K/mm3 (142-424); Red Blood Count 4.27 M/mm3 (4.20-5.40); Red Cell Distribution Width 16.2 % (11.5-17.5)
[2023-08-19 06:34] LABS: Chloride 96 mmol/L (98-107)
[2023-08-19 06:35] LABS: Potassium 3.3 mmoL/L (3.5-5.1); Sodium 131 mmol/L (136-145)
[2023-08-19 06:37] LABS: Alanine Aminotransferase 15 U/L (12-78); Alkaline Phosphatase 92 U/L (38-126); Anion Gap 6.3 mEq/L (5-15); Aspartate Amino Transferase 23 U/L (14-36); Bilirubin,Total 0.4 mg/dl (0.2-1.3); Blood Urea Nitrogen 16 mg/dl (7-17); Carbon Dioxide 32 mmol/L (22.0-30.0); Creatinine Clearance Estimated 49 mL/min (50-200); Estimated Glomerular Filt Rate 44 ml/min (>60); GFR (African American) 53 ML/MIN (>60)
[2023-08-19 06:38] LABS: Albumin Level 3.4 g/dl (3.5-5.0); Albumin/Globulin Ratio 1.2 (1.1-1.8); Globulin 2.9 g/dL (1.3-3.2); Glucose 156 mg/dl (74-100); Total Protein,Serum 6.3 g/dl (6.3-8.2)
[2023-08-19 06:47] LABS: Chol/HDL Ratio 3.9 (1-3.5); Cholesterol 163 mg/dl (140-200); HDL Cholesterol 42 mg/dl (40-60); Triglycerides 99 mg/dl (30-150); VLDL Cholesterol 20 mg/dL (0-40)
[2023-08-19 06:57] LABS: Direct LDL Cholesterol 90.57 mg/dL (100-129)
[2023-08-19 07:48] VITALS: BP 158/55; PULSE 64; RESP 17; TEMP 36.8; O2SAT 98
[2023-08-19 08:00] VITALS: PULSE 60; O2SAT 98
[2023-08-19] MEDS: FUROSEMIDE 40MG/4ML VIAL 40 MG IV (08:15)
[2023-08-19] MEDS: ENOXAPARIN 40MG/0.4ML SYRINGE 40 MG SQ (08:15)
[2023-08-19] MEDS: MEMANTINE 10MG TABLET 10 MG PO (08:16)
[2023-08-19] MEDS: IRBESARTAN 300MG TABLET 300 MG PO (08:16)
[2023-08-19] MEDS: SPIRONOLACTONE 25MG TABLET 50 MG PO (08:16)
[2023-08-19] MEDS: CITALOPRAM 40MG TABLET 40 MG PO (08:16)
[2023-08-19] MEDS: DONEPEZIL 10MG TAB 10 MG PO (08:16)
[2023-08-19] MEDS: PANTOPRAZOLE 40MG TABLET 40 MG PO (08:16)
[2023-08-19] MEDS: CARVEDILOL 12.5MG TABLET 12.5 MG PO (08:17)
[2023-08-19] MEDS: AMLODIPINE 10MG TABLET 10 MG PO (08:17)
--- NOTE | 2023-08-19 09:25 | HMH.PHAINT1 ---
Pharmacy Intervention Comments: DISCHARGE MEDICATION COUNSELING PROVIDED. DISCUSSED STOPPING AMLODIPINE 5 MG AND LOSARTAN, STOP FAMOTIDINE TWICE DAILY AND START FAMOTIDINE TWICE DAILY NEEDED. START TAKING THE FOLLOWING: -AMLODIPINE 10 MG (DAILY, FOR BP, DIZZINESS, LIGHTHEADEDNESS, LOW BP POSSIBLE, RISK OF SWELLING IN EXTREMITIES) -CARVEDILOL (TWICE DAILY, FOR BP\HEART RATE, TAKE WITH FOOD, DIZZINESS, LIGHTHEADEDNESS, LOW BP POSSIBLE, SLOWED HEART RATE, FATIGUE, HEADACHE POSSIBLE) -FUROSEMIDE (DAILY, FOR BP/SWELLING, TAKE IN THE MORNING, DIZZINESS, LIGHTHEADEDNESS, LOW BP, INCREASED URINATION POSSIBLE, MAY LOWER POTASSIUM LEVELS SO WATCH FOR IRREGULAR HEART BEAT/MUSCLE PAIN/CRAMPING) -IRBESARTAN (DAILY, FOR BP, DIZZINESS, LIGHTHEADEDNESS, LOW BP POSSIBLE, COUGH POSSIBLE) -PANTOPRAZOLE (DAILY, FOR REFLUX, TAKE 30 MINUTES BEFORE BREAKFAST, HEADACHE POSSIBLE) -SPIRONOLACTONE (DAILY, FOR BP/SWELLING, DIZZINESS, LIGHTHEADEDNESS, LOW BP POSSIBLE, BREAST PAIN POSSIBLE, INCREASED URINATION). PATIENT VERBALIZED NO QUESTIONS AT THIS TIME.
--- NOTE | 2023-08-19 13:06 | P.PN_ITS ---
Subjective Subjective Date: 08/19/23 Time: 09:00 Principal diagnosis: malignant HTN Interval history: The patient states she is feeling much better today. She denies any chest pain or pressure. She denies any shortness of breath or edema. She denies any fever, chills, nausea, vomiting, diarrhea, PND orthopnea. She states that her abdominal pain has resolved. She states that she was able to have a bowel movement last night and she is holding food down better today. She states that she is feeling very well and is ready to be discharged home. Exam Data for Last 24 hours Vital signs and Labs for Last 24 Hours: Temp Pulse Resp BP Pulse Ox O2 Del Method O2 Flow Rate 98.2 F 60 17 158/55 H 98 Room Air 1 08/19/23 07:48 08/19/23 08:00 08/19/23 07:48 08/19/23 07:48 08/19/23 08:00 08/19/23 09:00 08/16/23 16:00 Laboratory Results - last 24 hr 08/18/23 16:16: POC Glucose 153 H 08/18/23 20:10: POC Glucose 231 H 08/19/23 05:27: WBC 7.0, RBC 4.27, Hgb 11.1 L, Hct 33.8 L, MCV 79.2 L, MCH 26.0 L, MCHC 32.9, RDW 16.2, Plt Count 242, MPV 7.6, Neut % (Auto) 66.0, Lymph % (Aut o) 25.6, [place] % (Auto) 6.0, Eos % (Auto) 2.0, Baso % (Auto) 0.4, Neut # (Auto) 4.6, Lymph # (Auto) 1.8, [place] # (Auto) 0.4, Eos # (Auto) 0.1, Baso # (Auto) 0.0, Sodium 131 L, Potassium 3.3 L, Chloride 96 L, Carbon Dioxide 32 H, Anion Gap 6.3, BUN 16, Creatinine 1.20 H, Estimated Creat Clear 49, Estimated GFR 44 L, Est GFR ( Amer) 53 L, Glucose 156 H, Calcium 9.0, Total Bilirubin 0.4, AST 23, ALT 15, Alkaline Phosphatase 92, Total Protein 6.3, Albumin 3.4 L, Globulin 2.9, Albumin/Globulin Ratio 1.2, Triglycerides 99, Cholesterol 163, LDL Cholesterol Direct 90.57 L, VLDL Cholesterol 20, HDL Cholesterol 42, Cholesterol/HDL Ratio 3.9 H 08/19/23 05:55: POC Glucose 165 H I & O for Last 24 hours: Intake & Output 08/16/23 08/17/23 08/18/23 08/19/23 23:59 23:59 23:59 23:59 Intake Total 1931 / 2181 1330 / 1680 740 / 740 480 / 480 Output Total 500 / 500 250 / 250 0 / 0 0 / 0 Balance 1431 / 1681 1080 / 1430 740 / 740 480 / 480 Weight 161 lb 14.4 oz 170 lb 11.2 oz 168 lb 11.163 oz 170 lb 7 oz Constitutional Constitutional: no acute distress and obese *Routine HEENT Exam Head: Present normocephalic and atraumatic ENT: Present mucous membranes moist *Routine Neck Exam Neck: Present supple, full ROM and normal carotid upstroke; Absent JVD, carotid bruit or lymphadenopathy *Routine Respiratory Exam Respiratory: Present CTA bilaterally, normal respiratory effort, able to speak in complete sentences and symmetric chest movement *Routine Cardiovascular Exam Cardiovascular: Present RRR, Normal S1, Normal S2 and murmur; Absent gallop *Routine Abdominal Exam Abdominal: Present soft and normoactive bowel sounds; Absent tenderness, distended or organomegaly *Routine Extremities Exam Extremities: Present full ROM, pulses intact and normal capillary refill; Absent cyanosis, clubbing or edema *Routine Skin Exam Skin: Present intact and warm; Absent erythema *Routine Neurological Exam Neurological: Present alert, oriented X3 and CN II-XII intact; Absent sensory deficit or motor deficit Routine Psychiatric Exam Psychiatric: Present normal affect Progress Note: A&P Assessment and plan (1) Hypertensive urgency: Status: Acute (2) Gastroenteritis: Status: Acute (3) Diabetes: Status: Chronic (4) Essential hypertension: Status: Chronic (5) Memory impairment: Status: Chronic (6) Hyperlipidemia: Status: Acute (7) Diabetes mellitus, type 2: Status: Acute (8) Calcification of aorta: Status: Acute (9) Renal artery stenosis: Status: Acute (10) Peripheral arterial disease: Status: Acute Assessment and Plan Assessment and Plan for All Diagnoses:: Plan: 1. The patient is admitted to the hospital with hypertensive urgency. She was initially started on Cardene drip with reduction in her blood pressure. Now she is currently taking oral medications. Will continue oral Norvasc, carvedilol, irbesartan, Lasix and spironolactone. 2. The patient underwent renal angiogram and lower extremity runoff yesterday. This showed moderate bilateral renal artery stenosis and patent PAD with one- vessel runoff to the right foot and two-vessel runoff to the left foot. We do recommend aspirin 81 mg daily and statin therapy. 3. Her blood pressure is under much better control at this time. 4. Her LDL goal is less than 100. Her LDL is 90. She is on a statin. 5. The patient does have moderate aortic stenosis which is stable. 6. The patient did have a significantly elevated RVSP at 70 mmHg. She has been started on Lasix and spironolactone. She states that she has feels much better today since being started on diuretics. Her blood pressure has also improved. 7. No further recommendations at this time from a cardiac standpoint. The patient can be discharged home today from a cardiac standpoint with a follow-up in cardiology clinic in 1 to 2 weeks. She will need to be discharged on the following cardiac medications: Amlodipine 10 mg p.o. daily, aspirin 81 mg daily, carvedilol 12.5 mg p.o. twice daily, Lasix 80 mg p.o. daily, irbesartan 300 mg p.o. daily, Protonix 40 mg daily, pravastatin 80 mg p.o. nightly, spironolactone 50 mg p.o. daily. Thank you for the opportunity to help her to spend the care of this patient. All recommendations and orders are per Dr. Guevara.
== END 2023-08-19 10:20 | disposition home or self-care (01) ==
LOC: ER 18:50 → 2ND 20:54
PROVIDERS: Family Medicine; Internal Medicine; Nurse Practitioner Family; Admitting Provider Internal Medicine Adolescent Medicine; Emergency Provider Emergency Medicine; PCP Internal Medicine Adolescent Medicine; Visit Provider Internal Medicine Adolescent Medicine
DX: I16.0 Hypertensive urgency (principal); K52.9 Noninfective gastroenteritis and colitis, unspecified; R10.9 Unspecified abdominal pain; E11.9 Type 2 diabetes mellitus without complications; I10 Essential (primary) hypertension; R41.3 Other amnesia; I15.0 Renovascular hypertension; I70.1 Atherosclerosis of renal artery; R07.89 Other chest pain; I70.0 Atherosclerosis of aorta; I73.9 Peripheral vascular disease, unspecified; E78.2 Mixed hyperlipidemia; K74.60 Unspecified cirrhosis of liver; E03.9 Hypothyroidism, unspecified
CPT/HCPCS: 36415; 71275; 74174; 80048; 80053; 80061; 81001; 82962; 83605; 83690; 83735; 84443; 84484; 85007; 85025; 85610; 93005; 93306; 93976; 97161; 97165; 99152; 99153; 99285; C1725; C1769; G0378; J0131; J0456; J2405; J3475; Q9966; Q9967

== ENCOUNTER 2023-08-26 10:43 | Outpatient (CLI) | payer MEDICARE, BC, SELFPAY ==
[2023-08-26 11:14] LABS: Basophils # 0.1 K/mm3 (0-0.2); Basophils % 0.8 % (0.1-2.0); Eosinophils # 0.2 K/mm3 (0.0-0.4); Eosinophils % 2.4 % (0.1-12.0); Hematocrit 34.2 % (37.0-47.0); Hemoglobin 10.9 g/dL (12.2-16.2); Lymphocytes # 1.6 K/mm3 (0.7-4.5); Lymphocytes % 24.1 % (10-50); Mean Corpuscular Hemoglobin 26.8 pg (27.0-31.2); Mean Corpuscular Volume 83.6 fl (81-99); Mean Platelet Volume 7.6 fl (7.4-10.4); Monocytes # 0.4 K/mm3 (0.1-1.0); Monocytes % 6.8 % (1.7-9.3); Neutrophils # 4.3 K/mm3 (1.8-7.8); Neutrophils % 65.9 % (37.0-80.0); Platelet Count 284 K/mm3 (142-424); Red Blood Count 4.09 M/mm3 (4.20-5.40); Red Cell Distribution Width 16.2 % (11.5-17.5); White Blood Count 6.6 K/mm3 (4.8-10.8)
[2023-08-26 11:36] LABS: Alanine Aminotransferase 18 U/L (12-78); Albumin/Globulin Ratio 1.4 (1.1-1.8); Alkaline Phosphatase 76 U/L (38-126); Anion Gap 16.3 mEq/L (5-15); Aspartate Amino Transferase 27 U/L (14-36); Bilirubin,Total 0.3 mg/dl (0.2-1.3); Blood Urea Nitrogen 20 mg/dl (7-17); Calcium 9.5 mg/dl (8.4-10.2); Carbon Dioxide 24 mmol/L (22.0-30.0); Chloride 93 mmol/L (98-107); Estimated Glomerular Filt Rate 40 ml/min (>60); GFR (African American) 48 ML/MIN (>60); Globulin 2.9 g/dL (1.3-3.2); Glucose 143 mg/dl (74-100); Potassium 5.3 mmoL/L (3.5-5.1); Sodium 128 mmol/L (136-145); Total Protein,Serum 6.9 g/dl (6.3-8.2)
[2023-08-26 12:23] LABS: Vitamin B12 268 pg/mL (239-931)
== END 2023-08-26 23:59 | disposition home or self-care (01) ==
PROVIDERS: PCP Internal Medicine Adolescent Medicine; Visit Provider Internal Medicine Adolescent Medicine
DX: K21.9 Gastro-esophageal reflux disease without esophagitis; I50.30 Unspecified diastolic (congestive) heart failure; I11.0 Hypertensive heart disease with heart failure
CPT/HCPCS: 36415; 80053; 82607; 85025

== ENCOUNTER 2023-08-27 13:40 | Outpatient (CLI) | payer MEDICARE, BC, SELFPAY ==
--- NOTE | 2023-08-27 13:41 | CT_ITS ---
FINAL REPORT CLINICAL HISTORY: numbness ON RIGHT SIDE OF BODY COMPARISON: 02/02/2023 FINDINGS: Axial images of the head were obtained without contrast. Coronal reformatted images were also obtained. This study was performed with techniques to keep radiation doses as low as reasonably achievable (ALARA). Individualized dose reduction techniques using automated exposure control or adjustment of mA and/or kV according to the patient''s size were employed. There is generalized age-appropriate atrophy. Periventricular low-attenuation areas are seen consistent with moderate chronic ischemic changes. There is no evidence of intracranial hemorrhage or mass. There is new encephalomalacia in the anteromedial right temporal lobe. There is no evidence of acute infarct. There is no evidence of shift of the midline structures. No skull abnormality is seen on the bone window images. IMPRESSION: Atrophy and mild periventricular chronic ischemic changes. No acute intracranial abnormality identified. Reviewed, Interpreted and Dictated by Gilberto Olivia III, MD Transcribed by Jacquie Rios Authenticated and [facility]
== END 2023-08-27 23:59 | disposition home or self-care (01) ==
LOC: RAD 13:41
PROVIDERS: PCP Internal Medicine Adolescent Medicine; Visit Provider Nurse Practitioner Family
DX: R20.0 Anesthesia of skin (principal); Z86.73 Personal history of transient ischemic attack (TIA), and cerebral infarction without residual deficits
CPT/HCPCS: 70450

== ENCOUNTER 2023-09-02 11:11 | Outpatient (CLI) | payer MEDICARE, BC, SELFPAY ==
--- NOTE | 2023-09-02 | CA_ITS ---
APPROVED REPORT Exam: Pharmacologic Technologist: Amy Granados, Ht: 5 ft 1 in Wt: 161 lbs BSA: 1.72 m2 HR: 66 bpm BP: 171/72 mmHg Rhythm: SR Medical History Medications: Amlodipine,,,,, Levothyroxine,,,,, Pravastatin,,,,, Pantoprazole,,,,, Carvedilol,,,,, Lasix,,,,, DONEPEZIL,,,,, Janumet,,,,, Quetiapine,,,,, Escitalopram Oxalate,,,,, MeMANTINE,,,,, Cardiac Risk Factors: HTN, Hyperlipidemia, Diabetes (non-insulin) Stress Test Details Test: LEXISCAN HR Resting HR: 69 bpm Max Heart Rate (APMHR): 145 bpm Max HR Achieved: 77 bpm Target HR (85% APMHR): 123 bpm % of APMHR: 53 Recovery HR: 67 bpm BP Resting BP: 171/72 mmHg Max BP: 171/72 mmHg Recovery BP: 118.0/65.0 mmHg ECG Resting ECG: SR Stress ECG: No significant ST changes Arrhythmia: None Clinical Exercise duration: 04:01 min Highest Stage Achieved: Exercise capacity: 1.0 METs Stress ECG Conclusion During lexiscan pt experinced dizziness and dyspnea. No arrhythmias noted. No significant ST changes Conclusion: Unremarkable ECG portion of Lexiscan stress test. Myoview images reported separately. Test Summary REST . . . . . . . Sitting REST 02:19 . . 69 . 171/ 72 . . Stage 1 . . . . . . . Myoview Injected Stage 1 01:00 . . 74 . . . . Stage 2 01:00 . . 71 . . . . Stage 3 01:00 . . 68 . 141/ 51 . . Stage 4 01:00 . . 58 . 148/ 50 . . Stage 4 01:01 . . 58 . 148/ 50 . Stop exercise at 04:01 RECOVERY 01:00 . . 64 . 153/ 47 . . RECOVERY 02:00 . . 70 . 153/ 47 . . RECOVERY 03:00 . . 68 . 118/ 65 . . RECOVERY 04:00 . . 67 . 118/ 65 . . RECOVERY 05:00 . . 65 . 118/ 65 . . RECOVERY 05:18 . . 65 . 148/ 54 . . Electronically signed by : Nidia Moncada MD 09/03/2023 11:49:21
--- NOTE | 2023-09-02 11:11 | NM_ITS ---
APPROVED REPORT Exam: Nuclear Stress Test Indication: Abnormal EKG, HTN, DM, High cholesterol Patient Location: Outpatient Stress Tech: Amy Granados TEDDY Tech:Danica Olsen, ARRT, RT (R)(N) Ht: 5 ft 1 in Wt: 160 lbs Bra Size: DD HR: 69 bpm BP: 171/72 mmHg BSA: 1.72 m2 TID: 0.92 BMI: 30.2 History: Abnormal EKG, HTN, DM, High cholesterol Procedure: Patient received 0.4 mg of intravenous Lexiscan, resting heart rate 69 bpm, resting blood pressure 171/72 mmHg, with Lexiscan maximum heart rate achieved was 77 bpm which is % of the maximum predicted heart rate and blood pressure was 171/72 mmHg. With Lexiscan, patient denied any complaint of chest pain. Cardiac Stress and Resting SPECT Images: Cardiac Stress and Resting SPECT images were obtained using technetium 99m Myoview 31.2 mCi stress and 10.46 mCi at rest. Resting and stress imaging in supine and prone positions demonstrate no evidence of fixed or reversible perfusion defects. Gated imaging demonstrates normal global and regional LV systolic function. LVEF is calculated at 70%. Conclusion: No evidence of fixed or reversible perfusion defects. Gated imaging demonstrates normal global and regional LV systolic function. LVEF is calculated at 70%. Electronically signed by : Nidia Moncada MD 09/03/2023 11:50:44
--- NOTE | 2023-09-02 12:59 | CA_ITS ---
FINAL REPORT TECHNIQUE: Color Doppler, duplex Doppler and mac scale sonography of the bilateral neck vasculature was performed. Velocities were measured in the carotid arteries. Stenosis evaluation based on velocity criteria. CLINICAL HISTORY: cva COMPARISON: None FINDINGS: The peak systolic velocity of the right common carotid artery is 73 cm/sec and internal carotid artery 188 cm/sec. The diastolic velocity in the internal carotid artery is 34 cm/sec. The ICA/CCA ratio is 2.8. Visually, a small amount of plaque is seen. These findings are consistent with 50 to 69% stenosis. The external carotid artery is patent. The right vertebral artery is patent with antegrade flow. The peak systolic velocity of the left common carotid artery is 100 cm/sec and internal carotid artery 132 cm/sec. The diastolic velocity in the internal carotid artery is 22 cm/sec. The ICA/CCA ratio is 1.4. Visually, a small amount of plaque is seen. These findings are consistent with less than 50% stenosis. The external carotid artery is patent. The left vertebral artery is patent with antegrade flow. IMPRESSION: No evidence of significant carotid stenosis in the left carotid artery. There is 50 to 69% luminal diameter stenosis present in the right carotid artery. Bilateral patent vertebral arteries. Would consider CTA or MRA to further evaluate. Reviewed, Interpreted and Dictated by Gilberto Olivia III, MD Transcribed by Sherlyn Maurer Authenticated and . [facility]
[2023-09-02] MEDS: ISOTOPE MYOVIEW (PER STUDY) 1 DOSE IV (13:14)
[2023-09-02] MEDS: REGADENOSON 0.4MG/5ML SYRINGE 0.400000000000000022 MG IV (13:14)
[2023-09-02] MEDS: SODIUM CHLORIDE 0.9% 10ML SYR (RAD ONLY) 10 ML IV ×2 (13:14)
== END 2023-09-02 23:59 | disposition home or self-care (01) ==
LOC: RAD 11:11
PROVIDERS: PCP Internal Medicine Adolescent Medicine; Visit Provider Nurse Practitioner Family
DX: R94.31 Abnormal electrocardiogram [ECG] [EKG] (principal); R06.02 Shortness of breath; R20.0 Anesthesia of skin; I10 Essential (primary) hypertension
CPT/HCPCS: 78452; 93017; 93018; 93880; A9502; J2785

== ENCOUNTER 2023-09-22 08:13 | Outpatient (CLI) | payer MEDICARE, BC, SELFPAY ==
--- NOTE | 2023-09-22 08:14 | CT_ITS ---
FINAL REPORT CLINICAL HISTORY: Right sided numbness FINDINGS: CTA NECK Thin section axial CT with contrast with multiplanar reconstruction NASCET criteria and technique was utilized during interpretation. Aortic arch: Arch shows no significant narrowing. Great vessel origins are widely patent . Right carotid: Right common carotid artery is normal. There is calcified plaque at the right carotid bifurcation with 60% stenosis at the right carotid bulb. The more distal ICA and ECA are unremarkable. Left carotid: Left common carotid artery is normal. There is calcified plaque at the carotid bifurcation with 30% stenosis of the carotid bulb. More distal ICA and DARIAN are unremarkable.. Vertebrals: Right vertebral artery is dominant. No significant stenosis is present . IMPRESSION: 60% stenosis of the right carotid bulb. 30% stenosis of the left carotid bulb. Reviewed, Interpreted and Dictated by Gilberto Olivia III, MD Transcribed by Kathy Salazar Authenticated and [facility]
[2023-09-22] MEDS: IOPAMIDOL-370 (76%);100ML BOTTLE 100 ML IV (08:59)
[2023-09-22] MEDS: 0.9 % SODIUM CHLORIDE 50 ML VIAL IV (08:59)
[2023-09-22] MEDS: SODIUM CHLORIDE 0.9% 10ML SYR (RAD ONLY) 10 ML IV (08:59)
== END 2023-09-22 23:59 | disposition home or self-care (01) ==
LOC: RAD 08:14
PROVIDERS: PCP Internal Medicine Adolescent Medicine; Visit Provider Nurse Practitioner Family
DX: R20.0 Anesthesia of skin (principal); I70.0 Atherosclerosis of aorta; I10 Essential (primary) hypertension
CPT/HCPCS: 70498; Q9967

== ENCOUNTER 2023-09-25 11:56 | Outpatient (CLI) | payer MEDICARE, BC, SELFPAY ==
[2023-09-25 12:34] LABS: Basophils % 0.5 % (0.1-2.0); Eosinophils # 0.1 K/mm3 (0.0-0.4); Eosinophils % 1.2 % (0.1-12.0); Hematocrit 32.9 % (37.0-47.0); Hemoglobin 10.4 g/dL (12.2-16.2); Mean Corpuscular HGB Conc 31.6 g/dL (31.8-35.4); Mean Corpuscular Hemoglobin 26.7 pg (27.0-31.2); Mean Corpuscular Volume 84.5 fl (81-99); Mean Platelet Volume 7.2 fl (7.4-10.4); Monocytes # 0.6 K/mm3 (0.1-1.0); Monocytes % 6.8 % (1.7-9.3); Neutrophils # 5.6 K/mm3 (1.8-7.8); Neutrophils % 67.5 % (37.0-80.0); Platelet Count 306 K/mm3 (142-424); Red Cell Distribution Width 16.2 % (11.5-17.5); White Blood Count 8.3 K/mm3 (4.8-10.8)
[2023-09-25 14:08] LABS: Vitamin B12 210 pg/mL (239-931)
[2023-09-25 14:12] LABS: 25-OH Vitamin D, Total 25.4 ng/mL (30-100)
[2023-09-25 14:17] LABS: Folate 9.89 ng/mL
[2023-09-25 14:19] LABS: Ferritin 9.31 ng/ml (11.1-264)
[2023-09-25 16:11] LABS: Iron 61 ug/dL (37-170)
[2023-09-25 16:21] LABS: Total Iron Binding Capacity 360 ug/dL (265-497)
== END 2023-09-25 23:59 | disposition home or self-care (01) ==
LOC: LAB 11:57
PROVIDERS: PCP Internal Medicine Adolescent Medicine; Visit Provider Physician Assistant
DX: E87.5 Hyperkalemia (principal); I70.1 Atherosclerosis of renal artery; R20.0 Anesthesia of skin; R94.31 Abnormal electrocardiogram [ECG] [EKG]; R06.02 Shortness of breath; I73.9 Peripheral vascular disease, unspecified; E11.9 Type 2 diabetes mellitus without complications; E78.2 Mixed hyperlipidemia; D64.9 Anemia, unspecified; E55.9 Vitamin D deficiency, unspecified; Z68.31 Body mass index [BMI] 31.0-31.9, adult; Z79.84 Long term (current) use of oral hypoglycemic drugs
CPT/HCPCS: 36415; 82306; 82607; 82728; 82746; 83540; 83550; 85025

== ENCOUNTER 2023-11-10 15:40 | Outpatient (CLI) | payer MEDICARE, BC, SELFPAY ==
--- NOTE | 2023-11-10 15:47 | XR_ITS ---
FINAL REPORT CLINICAL HISTORY: Low back pain FINDINGS: LUMBAR SPINE 5 views were obtained. There are postoperative changes from L3-L5. There is no acute fracture. Vertebrae are normal height. There is no malalignment. The disc spaces are preserved. There is no soft tissue abnormality. IMPRESSION: No acute bony abnormality. Reviewed, Interpreted and Dictated by Jeremías Persaud MD Transcribed by Zuly Jackson Authenticated and [facility]
--- NOTE | 2023-11-10 15:49 | XR_ITS ---
FINAL REPORT CLINICAL HISTORY: ACUTE BILATERAL LOW BACL PAIN WITH RIDE SIDE SCIATICA FINDINGS: SACRUM/COCCYX 3 views were obtained. There is no acute fracture or bone destruction. Moderate degenerative changes are seen in the bilateral sacroiliac joints. IMPRESSION: No acute bony abnormality. Reviewed, Interpreted and Dictated by Jeremías Persaud MD Transcribed by Zuly Jackson Authenticated and [facility]
== END 2023-11-10 23:59 | disposition home or self-care (01) ==
LOC: LAB 15:42
PROVIDERS: PCP Internal Medicine Adolescent Medicine; Visit Provider Internal Medicine Adolescent Medicine
DX: M54.41 Lumbago with sciatica, right side (principal)
CPT/HCPCS: 72110; 72220

== ENCOUNTER 2023-12-09 08:59 | Outpatient (CLI) | payer MEDICARE, BC, SELFPAY ==
--- NOTE | 2023-12-09 09:02 | XR_ITS ---
FINAL REPORT TECHNIQUE: Bone densitometry calculations of the lumbar spine and left hip were obtained. CLINICAL HISTORY: SCREENING COMPARISON: None FINDINGS: Using L1-4, the bone mineral density of the spine is 1.258 g/cm2, corresponding to T-score of 1.6. Using the left hip, the bone mineral density of the femoral neck is 0.971 g/cm2, corresponding to a T-score of 1.1. Using the right forearm, the bone mineral density of the mid right forearm measures 0.522 g/cm?, corresponding to a T-score of -1.6. NOTE: T-score: Standard deviation compared with peak bone mass of young adult mean. *Following the recommendations of the International Society of Bone densitometry, classification of hip BMD is based on the lower of two T-scores; total hip or femoral neck. IMPRESSION: Diminished bone mineral density of the right forearm consistent with osteopenia. Normal bone mineral density of the hips bilaterally and the lumbar spine. Reviewed, Interpreted and Dictated by Benito Gresham MD Transcribed by Sherlyn Maurer Authenticated and . [facility]
== END 2023-12-09 23:59 | disposition home or self-care (01) ==
LOC: RAD 08:59
PROVIDERS: PCP Internal Medicine Adolescent Medicine; Visit Provider Internal Medicine Adolescent Medicine
DX: Z13.820 Encounter for screening for osteoporosis (principal); M81.0 Age-related osteoporosis without current pathological fracture
CPT/HCPCS: 77080

== ENCOUNTER 2023-12-26 14:30 | Emergency (ER) | payer MEDICARE, BC, SELFPAY ==
--- NOTE | 2023-12-26 14:43 | ED_ITS ---
Discharge Plan Disposition Patient Disposition: Home, Self-Care Condition: Good Prescriptions Prescriptions: New amoxicillin 875 mg tablet 875 mg PO Q12H Qty: 20 0RF benzonatate 100 mg capsule 100 mg PO TIDP PRN (Reason: Cough) Qty: 30 0RF methylprednisolone 4 mg Tablets,Dose Pack 4 mg PO DIRECTED 6 Days Qty: 21 0RF Rx Instructions: Take 1 pack as directed for 6 days No Action irbesartan 150 mg tablet 150 mg PO DAILY Qty: 30 5RF spironolactone 25 mg tablet 25 mg PO DAILY 30 Days Qty: 30 0RF pravastatin 80 MG tablet 80 mg PO HS memantine 10 MG tablet 10 mg PO BID quetiapine 200 mg tablet 200 mg PO HS Patient Comments: TAKE 1 TO 2 TABLETS BY MOUTH ONCE DAILY AT BEDTIME FOR 30 DAYS amlodipine 10 mg Tablet 10 mg PO DAILY 30 Days Qty: 30 0RF pantoprazole 40 mg Tablet,Delayed Release (Dr/Ec) 40 mg PO DAILY 30 Days Qty: 30 0RF famotidine 20 MG tablet 20 mg PO BID PRN (Reason: Acid Reflux) 30 Days Qty: 0 0RF donepezil 10 mg tablet 10 mg PO DAILY Patient Comments: TAKE 1 TABLET BY MOUTH ONCE DAILY WITH A MEAL levothyroxine 88 mcg tablet 88 mcg PO DAILYDM Patient Comments: TAKE 1 TABLET BY MOUTH ONCE DAILY escitalopram oxalate 20 mg tablet 20 mg PO DAILY Patient Comments: TAKE 1 TABLET BY MOUTH ONCE DAILY Janumet 50-1,000 mg tablet 1 tab PO BIDWMEAL Patient Comments: TAKE 1 TABLET BY MOUTH TWICE DAILY Referrals Follow up/Referrals: Sravan Anderson MD [Primary Care Provider] - See instructions Activity Restrictions/Add. Instructions Additional Instructions/Restrictions: Drink plenty of fluids. Take tylenol or ibuprofen for pain or fever. Take the medications as directed. Follow up with your regular doctor. GO TO THE ER FOR ANY WORSENING SYMPTOMS Clinical Impressions Clinical Impression: Acute bronchitis, Acute viral syndrome Print Language Print Language: Faroese Discharge ED Provider: Art Ott [facility] HPI General Stated complaint: cough x1 week, weakness, chills, low appetite Time Seen by Provider: 12/26/23 14:42 Related Data Home Medications ?Medication ?Instructions ?Recorded ?Confirmed memantine 10 mg tablet 10 mg PO BID Memory 06/26/18 10/14/23 pravastatin 80 mg tablet 80 mg PO HS Cholesterol 06/26/18 10/14/23 donepezil 10 mg tablet 10 mg PO DAILY Memory 01/23/23 10/14/23 escitalopram oxalate 20 mg tablet 20 mg PO DAILY 01/23/23 10/14/23 levothyroxine 88 mcg tablet 88 mcg PO DAILYDM Thyroid 01/23/23 10/14/23 sitagliptin phosphate 50 1 tab PO BIDWMEAL Diabetes 01/23/23 10/14/23 mg-metformin 1,000 mg tablet (Aprdarryl) quetiapine 200 mg tablet 200 mg PO HS 08/16/23 10/14/23 Previous Rx's ?Medication ?Instructions ?Recorded amlodipine 10 mg tablet 10 mg PO DAILY 30 days #30 tabs 08/19/23 famotidine 20 mg tablet 20 mg PO BID PRN Acid Reflux 30 08/19/23 days #0 tabs pantoprazole 40 mg tablet,delayed 40 mg PO DAILY 30 days #30 tabs 08/19/23 release spironolactone 25 mg tablet 25 mg PO DAILY 30 days #30 tabs 08/26/23 irbesartan 150 mg tablet 150 mg PO DAILY #30 tabs 09/25/23 amoxicillin 875 mg tablet 875 mg PO Q12H #20 tabs 12/26/23 benzonatate 100 mg capsule 100 mg PO TIDP PRN Cough #30 caps 12/26/23 methylprednisolone 4 mg tablets in 4 mg PO DIRECTED 6 days #21 tabs 12/26/23 a dose pack Allergies Allergy/AdvReac Type Severity Reaction Status Date / Time hydroxyzine [HYDROXYZINE] Allergy Unknown Unknown Verified 10/14/23 13:45 allergy reaction meperidine [From DEMEROL] Allergy Unknown Unknown Verified 10/14/23 13:45 allergy reaction rosuvastatin [From CRESTOR] Allergy Unknown Unknown Verified 10/14/23 13:45 allergy reaction PFSH PFSH Disclaimer: The information contained in this section may have been updated after the patient was seen, as this information can be updated by other users. 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 Previous back surgery History of hysterectomy History of cholecystectomy History of appendectomy Social History Smoking Status: Never smoker alcohol intake: never current occupational status: retired Travel in the last 8 weeks: None household members: spouse housing: house current occupational exposures/hazards: No caffeine: Yes ROS Obtained: Yes All systems reviewed & no additional complaints except as documented Constitutional Constitutional: Reports chills and Reports fever(s) Eyes Eyes: Denies eye discharge ENT Ears, Nose, Mouth, and Throat: Reports as per HPI Cardiovascular Cardiovascular: Denies chest pain Respiratory Respiratory: Denies shortness of breath, Reports chest congestion, Reports cough, Denies stridor and Denies wheezing Gastrointestinal Gastrointestingal: Reports nausea; Denies abdominal pain, constipation, cramping, diarrhea or vomiting Musculoskeletal Musculoskeletal: Denies arthralgias Integumentary/Breasts Skin/Breast: Denies rash Neurologic Neurologic: Denies paresthesias Allergic/Immunologic Allergic/Immunologic: Denies wheezing Physical Exam General General appearance: alert and in no apparent distress Head Head exam: atraumatic, normocephalic and normal inspection Eye Eye exam: Present normal appearance, PERRL and EOMI ENT ENT exam: Present normal exam, normal oropharynx, mucous membranes moist, TM's normal bilaterally and normal external ear exam Neck Neck exam: Present normal inspection, full ROM and trachea midline; Absent meningismus or lymphadenopathy Chest Chest inspection: Present normal inspection and symmetric chest wall rise; A bsent tenderness Respiratory Respiratory exam: Present normal lung sounds bilaterally; Absent respiratory distress Cardiovascular Cardiovascular exam: Present regular rate and normal rhythm; Absent JVD Abdominal Exam Abdominal exam: Present soft and normal bowel sounds; Absent distention, tenderness or guarding Extremities Exam Extremities exam: Present normal inspection, full ROM and normal capillary refill; Absent calf tenderness Back Exam Back exam: Present normal inspection; Absent tenderness Neurological Exam Neurological exam: Present alert and oriented X3 Psychiatric Psychiatric exam: Present normal affect and normal mood Skin Skin exam: Present warm, dry, intact and normal color Lymphatic Lymphatic Findings: no adenopathy Medical Decision Making Medical Records Medical records reviewed: No I reviewed the patient's medical records. Moe Inquiry Pt receiving controlled substance: No
[2023-12-26 14:50] VITALS: BP 193/73; PULSE 96; RESP 20; TEMP 36.8; O2SAT 95; BMI 31.4
[2023-12-26 15:01] LABS: Coronavirus 19, PCR Not Detected (NotDetected); Influenza A, PCR Not Detected (NotDetected); Influenza B, PCR Not Detected (NotDetected)
--- NOTE | 2023-12-26 15:20 | XR_ITS ---
FINAL REPORT CLINICAL HISTORY: cough, congestion COMPARISON: 02/02/2023 FINDINGS: Two views of the chest were obtained. The heart size and pulmonary vascularity are within normal limits. The mediastinum is normal. Minimal left basilar atelectasis versus scar. There is no pneumothorax. The bony thorax is intact. Postoperative changes are noted overlying the left shoulder. IMPRESSION: Minimal left basilar atelectasis versus scar. Reviewed, Interpreted and Dictated by Gilberto Olivia III, MD Transcribed by Sherlyn Maurer Authenticated and [facility]
[2023-12-26 16:22] VITALS: BP 193/73; PULSE 96; RESP 20; TEMP 36.8; O2SAT 95
== END 2023-12-26 16:22 | disposition home or self-care (01) ==
PROVIDERS: Emergency Provider Nurse Practitioner Family; PCP Internal Medicine Adolescent Medicine
DX: J20.9 Acute bronchitis, unspecified (principal); R50.9 Fever, unspecified; R09.89 Other specified symptoms and signs involving the circulatory and respiratory systems; R53.1 Weakness; B34.9 Viral infection, unspecified
CPT/HCPCS: 71046; 87636; 99212; 99214; G0463

== ENCOUNTER 2024-06-27 09:50 | Inpatient (IN) | payer MEDICARE, BC, SELFPAY ==
[2024-06-27] VITALS (16 sets, daily range): BP systolic 149–220; BP diastolic 69–99; PULSE 80–114; RESP 11–25; TEMP 36.6–36.7; O2SAT 85–98; BMI 34.0; BMI 30.5
--- NOTE | 2024-06-27 10:03 | PC.NURSE ---
Patient's oxygen saturations between 85 and 90. Patient bedded and placed on 2 LPM per NC. Report given to Radhika De Leon RN at bedside.
--- NOTE | 2024-06-27 10:05 | ECG_ITS ---
APPROVED REPORT Exam: Resting ECG HR:102 bpm ECG Measurements Heart Rate 102 AXES GA 203 P 75 QRSd 93 QRS -31 QT 367 T 91 QTc 426 Conclusion SINUS TACHYCARDIA LEFT AXIS DEVIATION [QRS AXIS < -30] NONSPECIFIC ST & T-WAVE ABNORMALITY Electronically signed by : LESLIE PENA, 06/27/2024 15:05:01
[2024-06-27 10:09] LABS: Coronavirus 19, PCR Not Detected (NotDetected); Influenza A, PCR Not Detected (NotDetected); Influenza B, PCR Not Detected (NotDetected)
--- NOTE | 2024-06-27 10:22 | XR_ITS ---
PROCEDURE INFORMATION: Exam: XR Chest Exam date and time: 06/27/2024 10:30 AM Age: 78 years old Clinical indication: Cough and shortness of breath; Additional info: SOA, cough, hypoxic TECHNIQUE: Imaging protocol: Radiologic exam of the chest. Views: 1 view. COMPARISON: CR XR CHEST 2V 12/26/2023 3:20 PM FINDINGS: Lungs: Mild increased interstitial opacities in both lungs likely represents mild pulmonary edema. Pleural spaces: Unremarkable. No pleural effusion. No pneumothorax. Heart/Mediastinum: Unremarkable. No cardiomegaly. Bones/joints: Unremarkable. IMPRESSION: Mild increased interstitial opacities in both lungs likely represents mild pulmonary edema.
[2024-06-27 10:34] LABS: Basophils % 0.6 % (0.1-2.0); Eosinophils # 0.1 K/mm3 (0.0-0.4); Eosinophils % 1.3 % (0.1-12.0); Hematocrit 26.3 % (37.0-47.0); Hemoglobin 7.8 g/dL (12.2-16.2); Lymphocytes # 0.7 K/mm3 (0.7-4.5); Lymphocytes % 11.6 % (10-50); Mean Corpuscular HGB Conc 29.7 g/dL (31.8-35.4); Mean Corpuscular Hemoglobin 24.5 pg (27.0-31.2); Mean Corpuscular Volume 82.4 fl (81-99); Mean Platelet Volume 9.5 fl (7.4-10.4); Monocytes # 0.5 K/mm3 (0.1-1.0); Monocytes % 7.2 % (1.7-9.3); Neutrophils # 4.9 K/mm3 (1.8-7.8); Neutrophils % 78.8 % (37.0-80.0); Platelet Count 241 K/mm3 (142-424); Red Blood Count 3.19 M/mm3 (4.20-5.40); Red Cell Distribution Width 17.9 % (11.5-17.5); White Blood Count 6.2 K/mm3 (4.8-10.8)
[2024-06-27 10:34] LABS: Lactate Venous 2.6 mmol/L (0.4-2.0); VBG Base Excess -3.3 mmol/L (-2.4-2.3); VBG HCO3 22.2 mmol/L (23-30); VBG PCO2 40.5 mmol/L (35-51); VBG PH 7.36 mmol/L (7.31-7.41); VBG PO2 93.7 mmol/L (28-40); VBG Total CO2 23.5 mmol/L (23-27)
--- NOTE | 2024-06-27 10:52 | PC.NURSE ---
Dr Toribio at bedside
--- NOTE | 2024-06-27 10:58 | CT_ITS ---
PROCEDURE INFORMATION: Exam: CTA Chest With Contrast Exam date and time: 06/27/2024 10:18 AM Age: 78 years old Clinical indication: Shortness of breath; Additional info: Epigastric pain, new anemia TECHNIQUE: Imaging protocol: Computed tomographic angiography of the chest with contrast. Exam focused on the arteries. 3D rendering (Not supervised by radiologist): MIP and/or 3D reconstructed images were created by the technologist. Radiation optimization: All CT scans at this facility use at least one of these dose optimization techniques: automated exposure control; mA and/or kV adjustment per patient size (includes targeted exams where dose is matched to clinical indication); or iterative reconstruction. Contrast material: ISOVUE; Contrast volume: 80 ml; Contrast route: INTRAVENOUS (IV); COMPARISON: CT ANGIO CHEST 08/15/2023 6:58 PM FINDINGS: Pulmonary arteries: The main pulmonary artery at the level of the right pulmonary artery measures 2 cm. No evidence of acute pulmonary embolism upto the subsegmental level. Aorta: The ascending aorta at the level of the right pulmonary artery measures 2.5 cm. Mild atherosclerotic calcifications affect the aorta and its branches. Renal arteries: Mild ostial stenosis involving the right renal artery. Lungs: Diffuse patchy and ground-glass opacities in both lungs with septal thickening likely represents moderate pulmonary edema. Superimposed infection is not entirely excluded. Pleural spaces: Moderate bilateral pleural effusions are seen. Heart: There is calcification of the mitral valve annulus. Coronary arteries: Coronary artery calcifications are noted. Lymph nodes: Unremarkable. No enlarged lymph nodes. Liver: Nodular contours of the liver likely represents cirrhosis. Gallbladder and biliary ducts: Cholecystectomy clips are seen. Bones/joints: Unremarkable. No acute fracture. Soft tissues: Unremarkable. IMPRESSION: 1. No evidence of acute pulmonary embolism upto the subsegmental level. 2. Diffuse patchy and ground-glass opacities in both lungs with septal thickening likely represents moderate pulmonary edema. Superimposed infection is not entirely excluded. 3. Moderate bilateral pleural effusions. 4. Nodular contours of the liver likely represents cirrhosis.
--- NOTE | 2024-06-27 10:58 | CT_ITS ---
PROCEDURE INFORMATION: Exam: CTA Abdomen and Pelvis With Contrast Exam date and time: 06/27/2024 10:18 AM Age: 78 years old Clinical indication: Other: Epigastric pain, new anemia; This is a without abd/pelv, cta abdomen/ pelvis and a venous delay TECHNIQUE: Imaging protocol: Computed tomographic angiography of the abdomen and pelvis with contrast. Exam focused on the arteries. 3D rendering (Not supervised by radiologist): MIP and/or 3D reconstructed images were created by the technologist. Radiation optimization: All CT scans at this facility use at least one of these dose optimization techniques: automated exposure control; mA and/or kV adjustment per patient size (includes targeted exams where dose is matched to clinical indication); or iterative reconstruction. Contrast material: ISOVUE 370; Contrast volume: 80 ml; Contrast route: INTRAVENOUS (IV); COMPARISON: CT ANGIO ABDOMEN PELVIS 08/15/2023 6:58 PM FINDINGS: Pleural spaces: Small bilateral pleural effusions. Aorta: No aortic aneurysm. No aortic dissection. Celiac trunk and mesenteric arteries: No occlusion or hemodynamically significant stenosis. Renal arteries: Stable appearing moderate stenoses of the origins of each renal artery. Right iliac arteries: No occlusion or significant stenosis. Left iliac arteries: No occlusion or significant stenosis. Liver: The liver capsule is slightly nodular suggesting hepatic cirrhosis. No focal liver lesion identified. Gallbladder and biliary ducts: Cholecystectomy. Pancreas: Mild pancreatic atrophy. No focal pancreatic lesion is identified. Spleen: Punctate old calcified granulomas in the spleen. The spleen is normal in size. Adrenal glands: The adrenal glands are normal in appearance. Kidneys and ureters: The kidneys are normal in appearance. No evidence of hydronephrosis or hydroureter. No nephroureteral calculi are identified. Stomach and bowel: The small bowel loops are not thickened and are nondilated. There is colonic diverticulosis but no evidence of diverticulitis. There are small hyperdensities adjacent to the wall of the cecum seen on the noncontrast, contrast-enhanced and delayed imaging. These hyperdensities do not significantly change in size or shape between the phases of the study and likely represents ingested debris. Hounsfield unit evaluation is challenging due to the small size and there are subtle differences in the Hounsfield units, but these Hounsfield unit differences may be due to slice selection/peristaltic changes between the different phases of the study. Appendix: The appendix was not visualized. Intraperitoneal space: Unremarkable. No free air. No significant fluid collection. Lymph nodes: Unremarkable. No enlarged lymph nodes. Urinary bladder: The urinary bladder is normal in appearance. Reproductive: Unremarkable as visualized. Bones/joints: No acute osseous lesions. There is a bipedicular posterior spinal fusion at L3-L4. Soft tissues: Unremarkable. IMPRESSION: 1. Colonic diverticulosis but no evidence of diverticulitis. The small bowel loops are unremarkable. 2. Hepatic cirrhosis. 3. Tiny hyperdensities adjacent to the wall of the cecum seen on all 3 phases of the study. Please see discussion above. The small hyperdensities likely represents ingested debris rather than small nonspecific vascular lesions in the cecum. 4. Small bilateral pleural effusions.
[2024-06-27 10:59] LABS: Albumin Level 4.1 g/dl (3.5-5.0); Chloride 104 mmol/L (98-107); Potassium 3.9 mmoL/L (3.5-5.1); Sodium 137 mmol/L (136-145)
--- NOTE | 2024-06-27 10:59 | PC.NURSE ---
Pt's oxygen is turned off at this time
[2024-06-27 11:01] LABS: Blood Urea Nitrogen 18 mg/dl (7-17); Creatinine Clearance Estimated 47 mL/min (50-200); Estimated Glomerular Filt Rate 40 ml/min (>60); GFR (African American) 48 ML/MIN (>60)
[2024-06-27 11:02] LABS: Alanine Aminotransferase 21 U/L (12-78); Albumin/Globulin Ratio 1.2 (1.1-1.8); Alkaline Phosphatase 108 U/L (38-126); Anion Gap 14.9 mEq/L (5-15); Aspartate Amino Transferase 30 U/L (14-36); Bilirubin,Total 0.5 mg/dl (0.2-1.3); Calcium 8.9 mg/dl (8.4-10.2); Carbon Dioxide 22 mmol/L (22.0-30.0); Globulin 3.3 g/dL (1.3-3.2); Glucose 222 mg/dl (74-100); Magnesium 1.6 mg/dl (1.6-2.3); Total Protein,Serum 7.4 g/dl (6.3-8.2)
[2024-06-27 11:12] LABS: NT Pro Brain Natriuretic Pep. 709 pg/mL (0-450)
--- NOTE | 2024-06-27 11:15 | PC.NURSE ---
pt to ct scan
[2024-06-27] MEDS: 0.9 % SODIUM CHLORIDE 50 ML VIAL IV (11:18)
[2024-06-27] MEDS: IOPAMIDOL-370 (76%);100ML BOTTLE 80 ML IV (11:18)
[2024-06-27] MEDS: SODIUM CHLORIDE 0.9% 10ML SYR (RAD ONLY) 10 ML IV (11:18)
[2024-06-27 11:22] LABS: Lactic Acid 2.8 mmol/L (0.7-2.1); Troponin I < 0.01 ng/ml (0.00-0.034)
[2024-06-27 11:24] LABS: Lipase 43 U/L (23-300)
--- NOTE | 2024-06-27 11:26 | PC.NURSE ---
pt returned from ct
--- NOTE | 2024-06-27 11:35 | ED_ITS ---
Discharge Plan Disposition Patient Disposition: Admitted Clinical Impressions Clinical Impression: Anemia Discharge ED Provider: Inna Toribio HPI General Chief Complaint: Shortness of Breath/Dyspnea Stated Complaint: SOA Time Seen by Provider: 06/27/24 10:30 Mode of Arrival: Ambulatory Source of Information: Patient Description of Symptoms (Recalled from ER Triage Doc. by RN): Patient presents ambulatory to triage. States that this morning she started coughing. Patient states, It was so loud you could hear me across the room. Patient states since this episode, she has been short of breath. Denies any known sick contacts. Denies any pulmonary history. History of Present Illness HPI narrative: This patient is a 78-year-old female with a history of type 2 diabetes, hypertension, hyperlipidemia, hypothyroidism, memory impairment, skin lesions for which she is being worked up for as an outpatient presenting to the emergency department for evaluation with concern for shortness of breath. Patient reports that this morning she woke up with a coughing fit. She states that it was so loud you could hear across the room, and she was coughing so strongly that she could not catch her breath. She notes that even after she was able to finally stop coughing, she still felt like she could not breathe. She especially gets short of breath if she talks or walks. She denies any known cardiopulmonary issues. She notes that she has had fatigue and general weakness for quite some time now and saw her primary care provider and had labs done a few days ago which were reassuring. Of note, she is also had some left upper quadrant/epigastric abdominal pain for the last little bit, now worsened after this coughing fit. She denies any nausea, vomiting, melena, hematochezia. Related Data Home Medications ?Medication ?Instructions ?Recorded ?Confirmed memantine 10 mg tablet 10 mg PO BID Memory 06/26/18 06/27/24 pravastatin 80 mg tablet 80 mg PO HS Cholesterol 06/26/18 06/27/24 donepezil 10 mg tablet 10 mg PO DAILY Memory 01/23/23 06/27/24 escitalopram oxalate 20 mg tablet 20 mg PO DAILY 01/23/23 06/27/24 levothyroxine 88 mcg tablet 88 mcg PO DAILYDM Thyroid 01/23/23 06/27/24 sitagliptin phosphate 50 1 tab PO BIDWMEAL Diabetes 01/23/23 06/27/24 mg-metformin 1,000 mg tablet (Janumet) quetiapine 200 mg tablet 200 - 400 mg PO HS 08/16/23 06/27/24 calcium phosphate,dibasic 77 1 tab PO DAILY 06/27/24 06/27/24 mg-vitamin D3 400 unit tablet cyanocobalamin (vitamin B-12) 50 50 mcg PO DAILY 06/27/24 06/27/24 mcg tablet (Vitamin B-12) irbesartan 150 mg tablet 150 mg PO DAILY 06/27/24 06/27/24 magnesium 100 mg tablet 100 mg PO BID 06/27/24 06/27/24 melatonin 3 mg tablet 3 mg PO HS PRN Insomnia 06/27/24 06/27/24 nifedipine 60 mg tablet,extended 60 mg PO DAILY 06/27/24 06/27/24 release Previous Rx's ?Medication ?Instructions ?Recorded amlodipine 10 mg tablet 10 mg PO DAILY 30 days #30 tabs 08/19/23 famotidine 20 mg tablet 20 mg PO BID PRN Acid Reflux 30 08/19/23 days #0 tabs pantoprazole 40 mg tablet,delayed 40 mg PO DAILY 30 days #30 tabs 08/19/23 release spironolactone 25 mg tablet 25 mg PO DAILY 30 days #30 tabs 08/26/23 Allergies Allergy/AdvReac Type Severity Reaction Status Date / Time hydroxyzine (HYDROXYZINE) Allergy Unknown Unknown Verified 06/27/24 14:43 allergy reaction meperidine (From DEMEROL) Allergy Unknown Unknown Verified 06/27/24 14:43 allergy reaction rosuvastatin (From CRESTOR) Allergy Unknown Unknown Verified 06/27/24 14:43 allergy reaction [facility] Disclaimer: The information contained in this section may have been updated after the patient was seen, as this information can be updated by other users. Medical History (Updated 06/27/24 @ 14:45 by Kayy Child RN) Subdural hematoma Renal artery stenosis Hyperkalemia Right sided numbness Abnormal electrocardiogram [ECG] [EKG] SOB (shortness of breath) on exertion Peripheral arterial disease Hypertensive urgency Gastroenteritis Claudication Calcification of aorta Chest tightness Renovascular hypertension Afib Rotator cuff arthropathy of both shoulders COVID-19 Subdural hematoma Anxiety Diabetes mellitus, type 2 Hyperlipidemia Hypertension Surgical History (Updated 06/27/24 @ 14:45 by Kayy Child RN) History of esophagogastroduodenoscopy (EGD) History of colonoscopy History of cardiac radiofrequency ablation (RFA) History of arthroplasty of both shoulders Total knee replacement status Previous back surgery History of hysterectomy History of cholecystectomy History of appendectomy Family History (Updated 06/27/24 @ 15:04 by Kayy Child RN) Father Family history of acute congestive heart failure Social History (Updated 06/27/24 @ 15:05 by Kayy Child RN) Smoking Status: Never smoker alcohol intake: never current occupational status: retired Travel in the last 8 weeks: None household members: spouse housing: house current occupational exposures/hazards: No caffeine: Yes Have you lived/traveled outside [place] in past 30 days?: No Contact w/someone who lives/traveled outside [place] past 30 days?: No Exposure to someone with infectious disease in past 14 days?: No Do you have a fever (greater than 100.4 F or 38 C)?: No Have you tested positive for COVID-19: No Exposed to someone with COVID-19 in past 14 days?: No Do you have a sore throat?: No Do you have a cough?: No Do you have any weakness?: Yes Do you have any diarrhea?: No Are you experiencing any unusual bleeding?: No Do you have any muscle aches/pain?: No Do you have any abdominal pain?: No Are you experiencing loss of taste or smell?: No Other Medical History Have you received the Flu Vaccine for this season: No Have you received the Pneumonia Vaccine: No ROS Obtained: Yes All systems reviewed & no additional complaints except as documented Physical Exam General General appearance: alert and in no apparent distress Head Head exam: atraumatic and normocephalic Eye Eye exam: Present normal appearance, PERRL and EOMI ENT ENT exam: Present normal exam, normal oropharynx, mucous membranes moist and normal external ear exam Neck Neck exam: Present normal inspection, full ROM and trachea midline; Absent tenderness Chest Chest inspection: Present normal inspection and symmetric chest wall rise; Absent tenderness Respiratory Respiratory exam: Present normal lung sounds bilaterally and other (Clear lung sounds bilaterally but notable conversational dyspnea); Absent respiratory distress, wheezes, stridor or accessory muscle use Cardiovascular Cardiovascular exam: Present regular rate and normal rhythm Abdominal Exam Abdominal exam: Present soft; Absent distention, tenderness or guarding Extremities Exam Extremities exam: Present normal inspection, full ROM and normal capillary refill; Absent tenderness or edema Back Exam Back exam: Present normal inspection and full ROM; Absent tenderness Neurological Exam Neurological exam: Present alert, oriented X3, CN II-XII intact and normal gait; Absent motor sensory deficit Psychiatric Psychiatric exam: Present normal affect and normal mood Skin Skin exam: Present warm and dry HEART Score HEART Score HEART Score assessment performed?: Yes History (anamnesis): Slightly suspicious ECG: Non-specific disturbance Age: >65 years Risk factors: 3 or more risk factors Troponin: </= normal limit HEART Score: 5 Critical Care Critical Care Time Critical Care Time: No Medical Decision Making Moe Inquiry Pt receiving controlled substance: No Vital Signs Vital Signs: 06/27/24 09:56 06/27/24 10:00 06/27/24 10:24 Temperature 98.1 F Temperature Source Oral Pulse Rate 99 H 94 H Pulse Rate [Radial] 100 H Respiratory Rate 24 25 H 19 Blood Pressure 156/93 H 160/99 H Blood Pressure [R Arm] 220/78 H Blood Pressure Mean [R Arm] 125 Blood Pressure Source Blood Pressure Position [R Arm] Sitting 02 Sat by Pulse Oximetry 88 L 92 L 96 Oxygen Delivery Method Room Air Nasal Cannula Nasal Cannula Oxygen Flow Rate (LPM) 2 2 06/27/24 11:00 06/27/24 11:34 06/27/24 11:45 Temperature Temperature Source Pulse Rate 93 H 114 H 100 H Pulse Rate [Radial] Respiratory Rate 14 23 Blood Pressure 172/73 H 149/99 H Blood Pressure [R Arm] Blood Pressure Mean [R Arm] Blood Pressure Source Blood Pressure Position [R Arm] 02 Sat by Pulse Oximetry 93 L 85 L 92 L Oxygen Delivery Method Room Air Room Air Nasal Cannula Oxygen Flow Rate (LPM) 2 06/27/24 12:02 06/27/24 13:00 06/27/24 13:31 Temperature Temperature Source Pulse Rate 92 H 85 88 Pulse Rate [Radial] Respiratory Rate 20 11 L 16 Blood Pressure 172/69 H 198/83 H 188/95 H Blood Pressure [R Arm] Blood Pressure Mean [R Arm] Blood Pressure Source Blood Pressure Position [R Arm] 02 Sat by Pulse Oximetry 96 98 98 Oxygen Delivery Method Nasal Cannula Oxygen Flow Rate (LPM) 06/27/24 13:33 06/27/24 14:11 Temperature 98.1 F Temperature Source Oral Pulse Rate 95 H Pulse Rate [Radial] Respiratory Rate 22 Blood Pressure 175/91 H Blood Pressure [R Arm] Blood Pressure Mean [R Arm] Blood Pressure Source Automatic Cuff Blood Pressure Position [R Arm] 02 Sat by Pulse Oximetry 91 L Oxygen Delivery Method Nasal Cannula Room Air Oxygen Flow Rate (LPM) 2 Lab Data Labs: Lab Results 06/27/24 10:03: SARS-CoV-2 (PCR) Not detected, Influenza A Untype (PCR) Not detected, Influenza Type B (PCR) Not detected 06/27/24 10:12: WBC 6.2, RBC 3.19 L, Hgb 7.8 L, Hct 26.3 L, MCV 82.4, MCH 24.5 L , MCHC 29.7 L, RDW 17.9 H, Plt Count 241, MPV 9.5, Neut % (Auto) 78.8, Lymph % (Auto) 11.6, [place] % (Auto) 7.2, Eos % (Auto) 1.3, Baso % (Auto) 0.6, Neut # (Auto) 4.9, Lymph # (Auto) 0.7, [place] # (Auto) 0.5, Eos # (Auto) 0.1, Baso # (Auto) 0.0, Sodium 137, Potassium 3.9, Chloride 104, Carbon Dioxide 22, Anion Gap 14.9, BUN 18 H, Creatinine 1.30 H, Estimated Creat Clear 47, Estimated GFR 40 L, Est GFR ( Amer) 48 L, Glucose 222 H, Hemoglobin A1c 6.5 H, Lactate 2.8 H, Calcium 8.9, Magnesium 1.6, Total Bilirubin 0.5, AST 30, ALT 21, Alkaline Phosphatase 108, Troponin I < 0.01, NT-Pro-B Natriuret Pep 709 H, Total Protein 7.4, Albumin 4.1, Globulin 3.3 H, Albumin/Globulin Ratio 1.2, Lipase 43, TSH 2.71, HCV Ab TRISTAN w/Rflx PCR Qn Negative, HIV Ag/Ab Combo Qual Negative 06/27/24 10:22: VBG pH 7.36, VBG pCO2 40.5, VBG pO2 93.7 H, VBG HCO3 22.2 L, VBG Total CO2 23.5, VBG O2 Saturation 97.0 H, VBG Base Excess -3.3 L, VBG Lactic Acid 2.6 H 06/27/24 11:30: Urine Color Yellow, Urine Appearance Clear, Urine pH 5.0, Ur Specific [place] 1.015, Urine Protein Negative, Urine Glucose (UA) Negative, Urine Ketones Negative, Urine Blood Negative, Urine Nitrate Negative, Urine Bilirubin Negative, Urine Urobilinogen N, Ur Leukocyte Esterase Negative, Urine RBC Occasional, Urine WBC 3-5, Ur Squamous Epith Cells 3-5, Urine Bacteria Trace, Urine Mucus Trace 06/27/24 11:37: Blood Type A Positive, Antibody Screen Negative 06/27/24 11:42: Stool Occult Blood Negative 06/27/24 13:08: Troponin I < 0.01 06/27/24 10:12 06/27/24 10:12 Response Orders (Tests/Meds): ED MEDICATIONS Generic Name Dose Route Start Last Admin Trade Name Freq PRN Reason Stop Dose Admin Acetaminophen 650 mg 06/27/24 13:22 Acetaminophen 325mg Tab PO 07/27/24 13:21 Q4HP PRN Fever or Mild Pain (1-3) Albuterol/Ipratropium 3 ml 06/27/24 18:00 Ipratropium/Albuterol 3 Ml Neb IH 07/27/24 17:59 Q6RT JG Citalopram Hydrobromide 40 mg 06/28/24 09:00 Citalopram 40mg Tablet PO 07/28/24 08:59 DAILY JG Donepezil HCl 10 mg 06/28/24 09:00 Donepezil 10mg Tab PO 07/28/24 08:59 DAILY JG Famotidine 20 mg 06/27/24 13:38 Famotidine 20mg Tablet PO 07/27/24 13:37 BID PRN Acid Reflux Furosemide 40 mg 06/27/24 16:00 Furosemide 40mg/4ml Vial IV 07/27/24 15:59 BIDL JG Irbesartan 150 mg 06/28/24 09:00 Irbesartan 150mg Tab PO 07/28/24 08:59 DAILY JG Levothyroxine Sodium 88 mcg 06/28/24 07:00 Levothyroxine 88mcg (0.088mg) Tab PO 07/28/24 06:59 DAILYDM JG Memantine 10 mg 06/27/24 21:00 Memantine 10mg Tablet PO 07/27/24 20:59 BID JG Pantoprazole Sodium 40 mg 06/28/24 09:00 Pantoprazole 40mg Tablet PO 07/28/24 08:59 DAILY JG Pravastatin Sodium 80 mg 06/27/24 21:00 Pravastatin 40mg Tab PO 07/27/24 20:59 HS JG Quetiapine Fumarate 200 mg 06/27/24 21:00 Quetiapine 100mg Tablet PO 07/27/24 20:59 HS JG Spironolactone 25 mg 06/28/24 09:00 Spironolactone 25mg Tablet PO 07/28/24 08:59 DAILY JG Discontinued Medications Generic Name Dose Route Start Last Admin Trade Name Freq PRN Reason Stop Dose Admin Furosemide 40 mg 06/27/24 12:18 06/27/24 13:21 Furosemide 40mg/4ml Vial IV 06/27/24 12:19 40 mg ONCE ONE Administration Iopamidol 80 ml 06/27/24 11:17 06/27/24 11:18 Iopamidol-370 (76%);100ml Bottle IV 06/27/24 11:18 80 ml ONCE ONE Administration Sodium Chloride 50 ml 06/27/24 11:17 06/27/24 11:18 0.9 % Sodium Chloride 50 Ml Vial IV 06/27/24 11:18 50 ml ONCE ONE Administration Sodium Chloride 10 ml 06/27/24 11:17 06/27/24 11:18 Sodium Chloride 0.9% 10ml Syr (Rad Only) IV 06/27/24 11:18 10 ml ONCE ONE Administration ORDERS Category Date Time Status Type and Screen Stat BBK 06/27/24 11:[address] angio abd/pel - GI Bleed Stat Cat Scan 06/27/24 10:[address] angio chest PE protocol Stat Cat Scan 06/27/24 10:58 Completed XR chest portable Stat Exams 06/27/24 10:22 Completed Complete Blood Count Auto Diff AMLAB Lab 06/28/24 06:00 Ordered Complete Blood Count Auto Diff Stat Lab 06/27/24 10:12 Completed Comprehensive Metabolic Panel AMLAB Lab 06/28/24 06:00 Ordered Comprehensive Metabolic Panel Stat Lab 06/27/24 10:12 Completed HIV Combo Stat Lab 06/27/24 10:12 Completed Hemoglobin A1C Stat Lab 06/27/24 10:12 Completed Hepatitis C Ab Qual. W/ RFX Stat Lab 06/27/24 10:12 Completed Lactic Acid Stat Lab 06/27/24 10:12 Completed Lipase Stat Lab 06/27/24 10:12 Completed MAG [Magnesium] Stat Lab 06/27/24 10:12 Completed Magnesium AMLAB Lab 06/28/24 06:00 Ordered NT Pro Brain Natriuretic Pep. Stat Lab 06/27/24 10:12 Completed Occult Blood,Stool Stat Lab 06/27/24 11:42 Completed Rapid PCR Covid and Flu A/B Stat Lab 06/27/24 10:03 Completed TSH [Thyroid Stimulating Hormone] Stat Lab 06/27/24 10:12 Completed Troponin I Q3H Lab 06/27/24 10:12 Completed Troponin I Q3H Lab 06/27/24 13:08 Completed UA [Urinalysis and Microscopic] Stat Lab 06/27/24 11:30 Completed Blood Culture Stat Micro 06/27/24 10:04 Received Venous Blood Gas Stat RT 06/27/24 10:22 Completed ECG Data Tracing #1: Attestation: I reviewed this ECG and interpreted as documented below: ECG Narrative: Sinus tachycardia with a ventricular rate of 102 bpm. Left axis deviation. Nonspecific ST/T wave changes without acute STEMI. ECG initial impression date: 06/27/24 ECG initial impression time: 10:08 MDM Narrative Medical Decision Narrative: In summary, this patient is a 78-year-old female presenting to the Emergency Department for evaluation of shortness of breath and a coughing fit that happened this morning. She also notes some epigastric/left upper quadrant abdominal pain and general weakness. Differential diagnoses considered include but are not limited to reactive airway disease, COPD, asthma, respiratory failure, pneumonia, PE, pneumothorax. Ruling out the most morbid conditions drove assessment. It should be noted patient's history includes obesity, hypertension, hyperlipidemia, diabetes, memory impairment, hypothyroidism which may or may not be at goal therapy. This complicates all aspects of care by increasing patient's risk for morbidity. On exam, the patient is sitting upright in no acute distress. She does have some conversational dyspnea this noted, but lungs are actually clear. She her O2 saturation is okay at rest but anytime she ambulates she drops down into the mid 80s. Workup included lab evaluation to evaluate for infectious, metabolic, cardiac etiologies. Given the respiratory failure as well as abdominal pain, CTA PE protocol and CT abdomen and pelvis with IV contrast were ordered. EKG obtained is not concerning for STEMI. I independently interpreted CT scan prior to the radiologist read and noted pulmonary edema without PE, no obvious pancreatic inflammation or intra-abdominal infection. Please see their read for final interpretation. Labs were obtained that demonstrated acute on chronic anemia with a hemoglobin of 7.8 down from a baseline of around 10. She also has elevated BNP. Kidney function is around her baseline.. Troponin negative. On reassessment, patient is lying in bed in no acute distress with reassuring vital signs on cardiac telemetry. She continues to desaturate with ambulation and have conversational dyspnea. For her elevated BNP and pulmonary edema noted, she was given IV Lasix. Ultimately given acute respiratory failure, concerns for CHF, acute on chronic anemia, I feel the patient would benefit from admission for continued monitoring and management. I had an interactive discussion with the hospitalist who admitted the patient in stable condition.
[2024-06-27 11:43] LABS: HIV Combo NEGATIVE (Negative)
[2024-06-27 11:45] LABS: Microscopic, Urine URINE MICROSCOPIC (MICROSCOPIC)
[2024-06-27 11:51] LABS: Hepatitis C Ab Qual. W/ RFX NEGATIVE (Negative)
[2024-06-27 12:04] LABS: Appearance,Urine Clear (Clear); Bilirubin,Urine Negative (Negative); Blood, Urine Negative (Negative); Color,Urine Yellow (Yellow); Glucose,Urine (UA) Negative (Negative); Ketones,Urine Negative (Negative); Nitrate,Urine Negative (Negative); Protein,Urine Negative (Negative); Specific Gravity, Urine 1.015 (1.005-1.030); Urobilinogen,Urine N EU/dl (0.2)
[2024-06-27 12:05] LABS: Leukocyte Esterase,Urine Negative (Negative)
[2024-06-27 12:08] LABS: RBC,Urine Occasional #/hpf (0-3)
[2024-06-27 12:09] LABS: Bacteria,Urine Trace /lpf; Mucus,Urine Trace /lpf
--- NOTE | 2024-06-27 12:49 | PC.NURSE ---
Called [facility] to check on status of CT ABD/Pelv, states it is being read now. Also called Lab to check on time remaining on stool occult, Shalonda states 7 min.
[2024-06-27 12:58] LABS: Occult Blood,Stool Negative (Negative)
--- NOTE | 2024-06-27 13:12 | PC.NURSE ---
dr melvin speaking with dr traylor
--- NOTE | 2024-06-27 13:19 | PC.NURSE ---
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
[2024-06-27] MEDS: FUROSEMIDE 40MG/4ML VIAL 40 MG IV ×2 (13:21→16:18)
--- NOTE | 2024-06-27 13:22 | P.HP_ITS ---
History of Present Illness *Admission Date: 06/27/24 *Reason for visit:: Short of breath, cough *History of present illness: Ms. Barraza is a 78-year-old female with history of diabetes, hypothyroid, hypertension, aortic stenosis, HFpEF. She presented to the ER with increased cough and shortness of breath. States that she has been short of breath for past day or 2. No known sick contacts. No fever. Cough nonproductive. On initial workup, patient states she cannot catch her breath. Worse shortness of breath with exertion. Denies any swelling in her legs. Has had physique and general weakness for weeks to months. Saw her primary care recently and they did labs which were reassuring per her report. Within the past month was given a short course of diuretic due to lower extremity edema. Ankle swelling resolved and she has not been on diuretics regularly. Initial labs with normal white count of 6.2, found to be anemic with a hemoglobin of 7.8, baseline 10-11. Kidney function at baseline of BUN 18, creatinine 1.3. Electrolytes normal. BNP elevated at 709. Necessitating supplemental oxygen and maintain sats greater than 90%. Currently on 2 L. Presentation most consistent with CHF exacerbation. Medicine consulted for admission and management of CHF exacerbation. Initiated on diuretics with Lasix IV once in the ER. On arrival to the floor, patient is stable on 2 L oxygen. Responding to diuretics. Feeling a little better since admission. at bedside helps supplement history. She denies any nausea, vomiting, melena, hematochezia. [facility] Disclaimer: The information contained in this section may have been updated after the patient was seen, as this information can be updated by other users. Medical History (Updated 06/27/24 @ 16:49 by Art Hu MD) Hypothyroid Obesity (BMI 30.0-34.9) Aortic stenosis (HFpEF) heart failure with preserved ejection fraction Subdural hematoma Renal artery stenosis Hyperkalemia Right sided numbness Abnormal electrocardiogram [ECG] [EKG] SOB (shortness of breath) on exertion Peripheral arterial disease Hypertensive urgency Gastroenteritis Claudication Calcification of aorta Chest tightness Renovascular hypertension Afib Rotator cuff arthropathy of both shoulders COVID-19 Subdural hematoma Anxiety Diabetes mellitus, type 2 Hyperlipidemia Hypertension Surgical History History of esophagogastroduodenoscopy (EGD) History of colonoscopy History of cardiac radiofrequency ablation (RFA) History of arthroplasty of both shoulders Total knee replacement status Previous back surgery History of hysterectomy History of cholecystectomy History of appendectomy Family History Father Family history of acute congestive heart failure Social History Smoking Status: Never smoker alcohol intake: never current occupational status: retired Travel in the last 8 weeks: None household members: spouse housing: house current occupational exposures/hazards: No caffeine: Yes Have you lived/traveled outside [place] in past 30 days?: No Contact w/someone who lives/traveled outside [place] past 30 days?: No Exposure to someone with infectious disease in past 14 days?: No Do you have a fever (greater than 100.4 F or 38 C)?: No Have you tested positive for COVID-19: No Exposed to someone with COVID-19 in past 14 days?: No Do you have a sore throat?: No Do you have a cough?: No Do you have any weakness?: Yes Do you have any diarrhea?: No Are you experiencing any unusual bleeding?: No Do you have any muscle aches/pain?: No Do you have any abdominal pain?: No Are you experiencing loss of taste or smell?: No Other Medical History Have you received the Flu Vaccine for this season: No Have you received the Pneumonia Vaccine: No Review of Systems Review of Systems Review of systems (narrative): 14 point review of systems performed, pertinent positives and negatives as per HPI Meds Home Medications and Allergies Home Medications ?Medication ?Instructions ?Recorded ?Confirmed ?Type memantine 10 mg tablet 10 mg PO BID Memory 06/26/18 06/27/24 History pravastatin 80 mg tablet 80 mg PO HS Cholesterol 06/26/18 06/27/24 History donepezil 10 mg tablet 10 mg PO DAILY Memory 01/23/23 06/27/24 History escitalopram oxalate 20 mg tablet 20 mg PO DAILY 01/23/23 06/27/24 History levothyroxine 88 mcg tablet 88 mcg PO DAILYDM Thyroid 01/23/23 06/27/24 History sitagliptin phosphate 50 1 tab PO BIDWMEAL Diabetes 01/23/23 06/27/24 History mg-metformin 1,000 mg tablet (Janumet) quetiapine 200 mg tablet 200 - 400 mg PO HS 08/16/23 06/27/24 History amlodipine 10 mg tablet 10 mg PO DAILY 30 days #30 tabs 08/19/23 06/27/24 Rx famotidine 20 mg tablet 20 mg PO BID PRN Acid Reflux 30 08/19/23 06/27/24 Rx days #0 tabs pantoprazole 40 mg tablet,delayed 40 mg PO DAILY 30 days #30 tabs 08/19/23 06/27/24 Rx release spironolactone 25 mg tablet 25 mg PO DAILY 30 days #30 tabs 08/26/23 06/27/24 Rx calcium phosphate,dibasic 77 1 tab PO DAILY 06/27/24 06/27/24 History mg-vitamin D3 400 unit tablet cyanocobalamin (vitamin B-12) 50 50 mcg PO DAILY 06/27/24 06/27/24 History mcg tablet (Vitamin B-12) irbesartan 150 mg tablet 150 mg PO DAILY 06/27/24 06/27/24 History magnesium 100 mg tablet 100 mg PO BID 06/27/24 06/27/24 History melatonin 3 mg tablet 3 mg PO HS PRN Insomnia 06/27/24 06/27/24 History nifedipine 60 mg tablet,extended 60 mg PO DAILY 06/27/24 06/27/24 History release New Prescriptions to Start Prescriptions: Allergies Allergy/AdvReac Type Severity Reaction Status Date / Time hydroxyzine (HYDROXYZINE) Allergy Unknown Unknown Verified 06/27/24 14:43 allergy reaction meperidine (From DEMEROL) Allergy Unknown Unknown Verified 06/27/24 14:43 allergy reaction rosuvastatin (From CRESTOR) Allergy Unknown Unknown Verified 06/27/24 14:43 allergy reaction Exam Data for Last 24 hours Vital signs and Labs for Last 24 Hours: Temp Pulse Resp BP Pulse Ox O2 Del Method O2 Flow Rate 98.1 F 92 H 20 172/69 H 96 Nasal Cannula 2 06/27/24 09:56 06/27/24 12:02 06/27/24 12:02 06/27/24 12:02 06/27/24 12:02 06/27/24 12:02 06/27/24 11:45 Laboratory Results - last 24 hr 06/27/24 10:03: SARS-CoV-2 (PCR) Not detected, Influenza A Untype (PCR) Not detected, Influenza Type B (PCR) Not detected 06/27/24 10:12: WBC 6.2, RBC 3.19 L, Hgb 7.8 L, Hct 26.3 L, MCV 82.4, MCH 24.5 L , MCHC 29.7 L, RDW 17.9 H, Plt Count 241, MPV 9.5, Neut % (Auto) 78.8, Lymph % (Auto) 11.6, [place] % (Auto) 7.2, Eos % (Auto) 1.3, Baso % (Auto) 0.6, Neut # (Auto) 4.9, Lymph # (Auto) 0.7, [place] # (Auto) 0.5, Eos # (Auto) 0.1, Baso # (Auto) 0.0, Sodium 137, Potassium 3.9, Chloride 104, Carbon Dioxide 22, Anion Gap 14.9, BUN 18 H, Creatinine 1.30 H, Estimated Creat Clear 47, Estimated GFR 40 L, Est GFR ( Amer) 48 L, Glucose 222 H, Lactate 2.8 H, Calcium 8.9, Magnesium 1.6, Total Bilirubin 0.5, AST 30, ALT 21, Alkaline Phosphatase 108, Troponin I < 0.01, NT-Pro-B Natriuret Pep 709 H, Total Protein 7.4, Albumin 4.1, Globulin 3.3 H, Albumin/Globulin Ratio 1.2, Lipase 43, HCV Ab TRISTAN w/Rflx PCR Qn Negative, HIV Ag/Ab Combo Qual Negative 06/27/24 10:22: VBG pH 7.36, VBG pCO2 40.5, VBG pO2 93.7 H, VBG HCO3 22.2 L, VBG Total CO2 23.5, VBG O2 Saturation 97.0 H, VBG Base Excess -3.3 L, VBG Lactic Acid 2.6 H 06/27/24 11:30: Urine Color Yellow, Urine Appearance Clear, Urine pH 5.0, Ur Specific [place] 1.015, Urine Protein Negative, Urine Glucose (UA) Negative, Urine Ketones Negative, Urine Blood Negative, Urine Nitrate Negative, Urine Bilirubin Negative, Urine Urobilinogen N, Ur Leukocyte Esterase Negative, Urine RBC Occasional, Urine WBC 3-5, Ur Squamous Epith Cells 3-5, Urine Bacteria Trace, Urine Mucus Trace 06/27/24 11:37: Blood Type A Positive, Antibody Screen Negative 06/27/24 11:42: Stool Occult Blood Negative I & O for Last 24 hours: Intake & Output 06/24/24 06/25/24 06/26/24 06/28/24 23:59 23:59 23:59 00:59 Weight 81.647 kg Constitutional Constitutional: mild distress, obese, chronically ill appearing and cooperative *Routine HEENT Exam Head: Present normocephalic Eye: Present EOMI and PERRL ENT: Present mucous membranes moist *Routine Neck Exam Neck: Present supple and full ROM; Absent tenderness *Routine Respiratory Exam Respiratory: Present CTA bilaterally and normal respiratory effort; Absent respiratory distress, rhonchi, wheezes or crackles *Routine Cardiovascular Exam Cardiovascular: Present RRR and murmur (4/6 systolic murmur) *Routine Abdominal Exam Abdominal: Present soft, normoactive bowel sounds and tenderness; Absent distended, rebound or guarding *Routine Rectal Exam Rectal:: deferred *Routine Genitalia Exam Genitalia:: deferred *Routine Extremities Exam Extremities: Present full ROM; Absent cyanosis, clubbing or edema *Routine Skin Exam Skin: Present intact; Absent cyanosis or rash *Routine Neurological Exam Neurological: Present alert, oriented X3, moving all extremities, vision grossly intact, hearing grossly intact and normal speech Comments: However when asked about history of heart failure and aortic stenosis, she states she has a murmur but does not know anything about her heart failure even though it is documented throughout her chart. Routine Psychiatric Exam Psychiatric: Present normal thought process, cooperative and anxious Assessment and Plan *Assessment and plan (1) Acute on chronic heart failure with preserved ejection fraction (HFpEF): Status: Acute Category: Medical Code(s): I50.33 - Acute on chronic diastolic (congestive) heart failure (2) Anemia: Status: Acute Category: Medical Code(s): D64.9 - Anemia, unspecified (3) Aortic stenosis: Status: Chronic Qualifiers: Cardiac valve disease etiology: etiology unspecified Qualified Code(s): I35.0 - Nonrheumatic aortic (valve) stenosis Category: Medical Code(s): I35.0 - Nonrheumatic aortic (valve) stenosis (4) Anxiety: Status: Chronic Category: Medical Code(s): F41.9 - Anxiety disorder, unspecified (5) Diabetes: Status: Chronic Qualifiers: Diabetes mellitus complication status: without complication Diabetes mellitus mcfp insulin use: without 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 Barraza is a 78-year-old female with history of , HFpEF, obesity, hypothyroid. Presented with dyspnea. Review of chart shows that she also has cirrhosis per imaging. Workup concerning for acute on chronic heart failure exacerbation versus worsening aortic stenosis causing her dyspnea. Discussed case with ER physician, request admission for diuresis and further management. Agreed to admit. Will have cardiology evaluate in the morning. Echo ordered for the morning. Responding to diuretics. Admitted to stepdown for further management. Problems addressed as follows Acute on chronic HFpEF Aortic stenosis -Patient presented with dyspnea. Found to have BNP of 709. Also found to be anemic. Initiated on diuretics with Lasix once in the ED. Will continue Lasix 40 mg IV twice daily. -Echocardiogram ordered for the morning, cardiology consulted to evaluate in the morning. - Echocardiogram from 08/12 with normal ejection fraction at 60%. Grade 3 diastolic dysfunction. Moderate to severe aortic stenosis with VERNON of 1.1 cm?. - Continue irbesartan 150 mg daily for hypertension, continue spironolactone 25 mg daily -Goal sats greater 90%. Continue supplemental oxygen as needed. Currently on 2 L Anemia: Hemoglobin 7.8. Baseline appears to be 10-11. MCV normal. Suspect secondary to chronic disease. Iron studies pending for the morning. CKD 3A: Needing 1.3, BUN 18. Appears at baseline. Repeat CBC, CMP, magnesium ordered for the morning. [id number] - Most likely JOE; CT of abdomen obtained last July has concern for cirrhotic morphology of the liver with nodular contour and volume redistribution. -Needs outpatient referral to GI. Does not appear that she has seen GI since last visit. Mild cognitive impairment: - On memantine 10 mg twice a day and donepezil 10 mg daily at home. Appears to have poor understanding of her medical history and does not recall diagnoses previously discussed per documentation. Definitely impacts her overall health care and condition management. - Continue memantine 10 mg twice daily, Seroquel 200 mg night sleep, donepezil 10 mg daily - PT and OT consulted to evaluate for placement versus home with home health. Diabetes: A1c 6.5, continue sliding scale insulin with fingersticks ACHS. Hypothyroidism: TSH 2.7, continue levothyroxine 88 mcg daily DNR/DNI Cardiac diet, n.p.o. at midnight Holding anticoagulation in the setting of anemia
[2024-06-27 13:42] LABS: Troponin I < 0.01 ng/ml (0.00-0.034)
--- NOTE | 2024-06-27 13:50 | PC.NURSE ---
Called report to Kayy Castaneda RN to [facility]
[2024-06-27 14:15] LABS: Thyroid Stimulating Hormone 2.71 uIU/mL (0.465-4.68)
[2024-06-27 14:35] LABS: Reflex Lactic Add Lactic Reflex
[2024-06-27 14:59] LABS: Hemoglobin A1C 6.5 % (4.0-6.0)
[2024-06-27 15:07] LABS: Lactic Acid Follow Up (RFLX 1) 1.9 mmol/L (0.7-2.1)
[2024-06-27 15:45] LABS: Adenovirus,PCR Not Detected (NotDetected); Bordetella Pertussis Not Detected (NotDetected); Chlamydophila Pneumoniae, PCR Not Detected (NotDetected); Coronavirus 19, PCR Not Detected (NotDetected); Coronavirus 229E Not Detected (NotDetected); Coronavirus NL63 Not Detected (NotDetected); Coronavirus OC43 Not Detected (NotDetected); Coronovirus HKU1,PCR Not Detected (NotDetected); Human Metapneumovirus Not Detected (NotDetected); Influenza A, PCR Not Detected (NotDetected); Influenza AH1, 2009 Not Detected (NotDetected); Influenza AH1, PCR Not Detected (NotDetected); Influenza AH3,PCR Not Detected (NotDetected); Influenza B, PCR Not Detected (NotDetected); Mycoplasma Pneumoniae, PCR Not Detected (NotDetected); Parainfluenza 1, PCR Not Detected (NotDetected); Parainfluenza 2, PCR Not Detected (NotDetected); Parainfluenza 3, PCR Not Detected (NotDetected); Parainfluenza 4, PCR Not Detected (NotDetected); Respiratory Syncytial Virus Not Detected (NotDetected); Rhinovirus/Enterovirus Not Detected (NotDetected)
[2024-06-27] MEDS: IPRATROPIUM/ALBUTEROL 3 ML NEB IH (18:51)
[2024-06-27 20:09] LABS: POC Glucose,Bedside 196 (70-110)
[2024-06-27] MEDS: PRAVASTATIN 40MG TAB 80 MG PO (20:09)
[2024-06-27] MEDS: QUETIAPINE 100MG TABLET 200 MG PO (20:09)
[2024-06-27] MEDS: MEMANTINE 10MG TABLET 10 MG PO (20:09)
[2024-06-27] MEDS: humaLOG 100 UNITS/ML 10ML VIAL (SSI) SUBCUT (20:09)
[2024-06-28] VITALS (22 sets, daily range): BP systolic 138–195; BP diastolic 52–79; PULSE 75–100; RESP 9–20; TEMP 36.4–37.1; O2SAT 91–98; BMI 29.7
[2024-06-28] MEDS: IPRATROPIUM/ALBUTEROL 3 ML NEB IH ×5 (00:51→23:49)
[2024-06-28] MEDS: humaLOG 100 UNITS/ML 10ML VIAL (SSI) SUBCUT ×4 (06:09→20:37)
[2024-06-28] MEDS: LEVOTHYROXINE 88MCG (0.088MG) TAB 88 MCG PO (06:38)
[2024-06-28 06:52] LABS: Basophils % 0.5 % (0.1-2.0); Eosinophils # 0.1 K/mm3 (0.0-0.4); Eosinophils % 0.8 % (0.1-12.0); Hemoglobin 8.4 g/dL (12.2-16.2); Lymphocytes % 15.1 % (10-50); Mean Corpuscular HGB Conc 31.1 g/dL (31.8-35.4); Mean Corpuscular Hemoglobin 25.5 pg (27.0-31.2); Mean Corpuscular Volume 82.1 fl (81-99); Mean Platelet Volume 9.7 fl (7.4-10.4); Monocytes # 0.5 K/mm3 (0.1-1.0); Monocytes % 8.1 % (1.7-9.3); Neutrophils # 4.9 K/mm3 (1.8-7.8); Platelet Count 280 K/mm3 (142-424); Red Blood Count 3.29 M/mm3 (4.20-5.40); Red Cell Distribution Width 18.1 % (11.5-17.5); White Blood Count 6.5 K/mm3 (4.8-10.8)
[2024-06-28 07:00] LABS: Alanine Aminotransferase 18 U/L (12-78); Albumin Level 4.4 g/dl (3.5-5.0); Albumin/Globulin Ratio 1.3 (1.1-1.8); Alkaline Phosphatase 98 U/L (38-126); Anion Gap 13.7 mEq/L (5-15); Aspartate Amino Transferase 29 U/L (14-36); Bilirubin,Total 0.4 mg/dl (0.2-1.3); Blood Urea Nitrogen 19 mg/dl (7-17); Calcium 9.3 mg/dl (8.4-10.2); Carbon Dioxide 28 mmol/L (22.0-30.0); Chloride 98 mmol/L (98-107); Creatinine Clearance Estimated 43 mL/min (50-200); Estimated Glomerular Filt Rate 37 ml/min (>60); GFR (African American) 44 ML/MIN (>60); Globulin 3.4 g/dL (1.3-3.2); Glucose 172 mg/dl (74-100); Magnesium 1.6 mg/dl (1.6-2.3); Potassium 3.7 mmoL/L (3.5-5.1); Sodium 136 mmol/L (136-145); Total Protein,Serum 7.8 g/dl (6.3-8.2)
--- NOTE | 2024-06-28 08:09 | HMH.PHAINT1 ---
Pharmacy Intervention Comments: HOME MEDICATION LIST VERIFIED USING LIST FROM OUTPATIENT PHARMACY
[2024-06-28 09:03] LABS: Iron 58 ug/dL (37-170)
[2024-06-28] MEDS: FUROSEMIDE 40MG/4ML VIAL 40 MG IV ×2 (09:08→16:04)
[2024-06-28] MEDS: DONEPEZIL 10MG TAB 10 MG PO (09:08)
[2024-06-28] MEDS: IRBESARTAN 150MG TAB 150 MG PO (09:08)
[2024-06-28] MEDS: CITALOPRAM 40MG TABLET 40 MG PO (09:08)
[2024-06-28] MEDS: MEMANTINE 10MG TABLET 10 MG PO ×2 (09:09→20:38)
[2024-06-28] MEDS: SPIRONOLACTONE 25MG TABLET 25 MG PO (09:09)
[2024-06-28] MEDS: PANTOPRAZOLE 40MG TABLET 40 MG PO (09:09)
[2024-06-28 09:12] LABS: Total Iron Binding Capacity 386 ug/dL (265-497)
--- NOTE | 2024-06-28 09:55 | SW/DCPLANNER ---
Per PT/OT no needs at this time.
--- NOTE | 2024-06-28 11:26 | HMH.PTEV ---
Physical Therapy Evaluation Rehab PT IP Evaluation Start: 06/27/24 19:01 Freq: ONCE Status: Active Protocol: Document 06/28/24 09:40 BHARAT (Rec: 06/28/24 11:26 BHARAT [id number]) Subjective/History History History 78-year-old female with history of diabetes, hypothyroid, hypertension, aortic stenosis, HFpEF. She presented to the ER with increased cough and shortness of breath. States that she has been short of breath for past day or 2. No known sick contacts. No fever. Cough nonproductive. On initial workup, patient states she cannot catch her breath. Worse shortness of breath with exertion. Denies any swelling in her legs. She reports she lives with her , 1-2 JUNI the home, and she is generally independent with all mobility and ambulation without an AD at baseline. Subjective Subjective No current c/o other than mild SOA with exertion. On 2 L/min O2 via NC at all times during treatment. [facility] How much help from another person do you currently need... Turning from your back to your side None while in a flat bed without using bedrails? Moving from lying on back to sitting on None the side of a flat bed without using bedrails? Moving to and from a bed to a chair ( None including a wheelchair)? Standing up from a chair using your arms None ? (e.g., wheelchair, bedside chair) Walking in hospital room? None Climbing 3-5 steps with a railing? None Mobility Score 24 Mobility Level [facility] Mobility Calculator Mobility 8 Walk 250 feet or more Rehab PT IP Eval Objective Appearance Patient Behavior Appropriate Patient Orientation Person,Place,Time Difficulty following instructions none Speech Pattern Clear Ambulation Patient Able to Ambulate Yes Ambulation Observation IP General Gait Pattern Observation No Deviations/Normal Ambulation Distance (feet) 60 Ambulation Assistive Device None Ambulation Ability Supervision/Stand by Balance Ability to Arise Able, uses arms to help Sitting Balance Steady, safe Standing Balance Steady, wide stance Dynamic Standing Balance Ability Good Transfers Bed Transfer Ability Independent Chair Transfer Ability Independent Sit to Stand Bed Transfer Ability Independent Sit to Stand Chair Transfer Ability Independent Rehab PT IP prob,goals,plan Problems Date of Evaluation: 06/28/24 Discharge Plan PT Discharge Plan Pt is currently appropriate to return home once medically stable for d/c. No needs for inpatient therapy services at this time. Eval Complexity Eval Charge Codes 22474 - High Complexity PHYSICIAN CERTIFICATION: I certify the specified therapy services for Yuki Barraza are required, authorized, and reviewed every 30 days.
--- NOTE | 2024-06-28 11:29 | P.CONCA_ITS ---
History of Present Illness History of Present Illness Consult date: 06/28/24 Requesting physician: Art Hu Consult reason: shortness of breath Chief complaint: SOB and cough History of present illness: Hospitalist note: Ms. Barraza is a 78-year-old female with history of diabetes, hypothyroid, hypertension, aortic stenosis, HFpEF. She presented to the ER with increased cough and shortness of breath. States that she has been short of breath for past day or 2. No known sick contacts. No fever. Cough nonproductive. On initial workup, patient states she cannot catch her breath. Worse shortness of breath with exertion. Denies any swelling in her legs. Has had physique and general weakness for weeks to months. Saw her primary care recently and they did labs which were reassuring per her report. Within the past month was given a short course of diuretic due to lower extremity edema. Ankle swelling resolved and she has not been on diuretics regularly. Initial labs with normal white count of 6.2, found to be anemic with a hemoglobin of 7.8, baseline 10-11. Kidney function at baseline of BUN 18, creatinine 1.3. Electrolytes normal. BNP elevated at 709. Necessitating supplemental oxygen and maintain sats greater than 90%. Currently on 2 L. Presentation most consistent with CHF exacerbation. Medicine consulted for admission and management of CHF exacerbation. Initiated on diuretics with Lasix IV once in the ER. On arrival to the floor, patient is stable on 2 L oxygen. Responding to diuretics. Feeling a little better since admission. at bedside helps supplement history. She denies any nausea, vomiting, melena, hematochezia. Cardiology note: This is a 78-year-old white female with history of diabetes, hypothyroidism, hypertension, moderate to severe aortic stenosis, moderate bilateral renal artery stenosis, heart failure with preserved ejection fraction and history of CVA with memory loss who presented to emergency department with complaints of cough and shortness of breath. CTA chest was positive for moderate pulmonary edema and moderate bilateral pleural effusions. Initial creatinine on admission was 1.3 trending up to 1.4. Serial troponins have remained negative. ProBNP 709. Patient was admitted and is diuresing well. Repeat echocardiogram is pending. This morning patient reports shortness of breath is greatly improved. [facility] Disclaimer: The information contained in this section may have been updated after the patient was seen, as this information can be updated by other users. Medical History (Updated 06/28/24 @ 11:42 by Cara Esparza APRN) Hypothyroid Obesity (BMI 30.0-34.9) Aortic stenosis (HFpEF) heart failure with preserved ejection fraction Subdural hematoma Renal artery stenosis Hyperkalemia Right sided numbness Abnormal electrocardiogram [ECG] [EKG] SOB (shortness of breath) on exertion Peripheral arterial disease Hypertensive urgency Gastroenteritis Claudication Calcification of aorta Chest tightness Renovascular hypertension Afib Rotator cuff arthropathy of both shoulders COVID-19 Subdural hematoma Anxiety Diabetes mellitus, type 2 Hyperlipidemia Hypertension Surgical History History of esophagogastroduodenoscopy (EGD) History of colonoscopy History of cardiac radiofrequency ablation (RFA) History of arthroplasty of both shoulders Total knee replacement status Previous back surgery History of hysterectomy History of cholecystectomy History of appendectomy Family History Father Family history of acute congestive heart failure Social History Smoking Status: Never smoker alcohol intake: never current occupational status: retired Travel in the last 8 weeks: None household members: spouse housing: house current occupational exposures/hazards: No caffeine: Yes Have you lived/traveled outside [place] in past 30 days?: No Contact w/someone who lives/traveled outside [place] past 30 days?: No Exposure to someone with infectious disease in past 14 days?: No Do you have a fever (greater than 100.4 F or 38 C)?: No Have you tested positive for COVID-19: No Exposed to someone with COVID-19 in past 14 days?: No Do you have a sore throat?: No Do you have a cough?: No Do you have any weakness?: Yes Do you have any diarrhea?: No Are you experiencing any unusual bleeding?: No Do you have any muscle aches/pain?: No Do you have any abdominal pain?: No Are you experiencing loss of taste or smell?: No Review of Systems Review of Systems Review of systems:: pertinent systems reviewed and negative unless documented below *Cardiovascular Cardiovascular: Reports dyspnea on exertion *Respiratory Respiratory: Reports dyspnea on exertion Exam Data for Last 24 hours Vital signs and Labs for Last 24 Hours: Temp Pulse Resp BP Pulse Ox O2 Del Method O2 Flow Rate 98.7 F 81 11 L 138/61 94 L Nasal Cannula 2 06/28/24 07:50 06/28/24 08:00 06/28/24 08:00 06/28/24 08:00 06/28/24 09:15 06/28/24 09:15 06/28/24 09:15 Laboratory Results - last 24 hr 06/27/24 10:12: Hemoglobin A1c 6.5 H, TSH 2.71, HCV Ab TRISTAN w/Rflx PCR Qn Negative, HIV Ag/Ab Combo Qual Negative 06/27/24 11:30: Urine Color Yellow, Urine Appearance Clear, Urine pH 5.0, Ur Specific [place] 1.015, Urine Protein Negative, Urine Glucose (UA) Negative, Urine Ketones Negative, Urine Blood Negative, Urine Nitrate Negative, Urine Bilirubin Negative, Urine Urobilinogen N, Ur Leukocyte Esterase Negative, Urine RBC Occasional, Urine WBC 3-5, Ur Squamous Epith Cells 3-5, Urine Bacteria Trace, Urine Mucus Trace 06/27/24 11:37: Blood Type A Positive, Antibody Screen Negative 06/27/24 11:42: Stool Occult Blood Negative 06/27/24 13:08: Troponin I < 0.01 06/27/24 14:40: Lactate 1.9 06/27/24 14:58: Chlamy pneumoniae PCR Not detected, Adenovirus (PCR) Not detected, B. pertussis DNA (PCR) Not detected, Coronavirus OC43 (PCR) Not detected, Coronavirus HKU1 (PCR) Not detected, Coronavirus 229E (PCR) Not detected, SARS-CoV-2 (PCR) Not detected, Coronavirus NL63 (PCR) Not detected, Human Metapneumovir PCR Not detected, Influenza A (H1) PCR Not detected, Influ A (H1N1/09) PCR Not detected, Influenza A (H3) PCR Not detected, Influenza Type A (PCR) Not detected, Influenza Type B (PCR) Not detected, M. pneumoniae (PCR) Not detected, Parainfluenza 1 (PCR) Not detected, Parainfluenza 2 (PCR) Not detected, Parainfluenza 3 (PCR) Not detected, Parainfluenza 4 (PCR) Not detected, RSV (PCR) Not detected, Entero/Rhino (PCR) Not detected 06/27/24 19:59: POC Glucose 196 H 06/28/24 05:27: WBC 6.5, RBC 3.29 L, Hgb 8.4 L, Hct 27.0 L, MCV 82.1, MCH 25.5 L , MCHC 31.1 L, RDW 18.1 H, Plt Count 280, MPV 9.7, Neut % (Auto) 75.0, Lymph % (Auto) 15.1, [place] % (Auto) 8.1, Eos % (Auto) 0.8, Baso % (Auto) 0.5, Neut # (Auto) 4.9, Lymph # (Auto) 1.0, [place] # (Auto) 0.5, Eos # (Auto) 0.1, Baso # (Auto) 0.0, Sodium 136, Potassium 3.7, Chloride 98, Carbon Dioxide 28, Anion Gap 13.7, BUN 19 H, Creatinine 1.40 H, Estimated Creat Clear 43, Estimated GFR 37 L , Est GFR ( Amer) 44 L, Glucose 172 H D, Calcium 9.3, Magnesium 1.6, Iron 58, TIBC 386, Iron Saturation 15.77150, Ferritin 22.0 D, Total Bilirubin 0.4, AST 29, ALT 18, Alkaline Phosphatase 98, Total Protein 7.8, Albumin 4.4, Globulin 3.4 H, Albumin/Globulin Ratio 1.3 I & O for Last 24 hours: Intake & Output 06/25/24 06/26/24 06/28/24 06/28/24 23:59 23:59 00:59 23:59 Intake Total 120 / 120 Output Total 2700 / 2700 300 / 300 Balance -2580 / -2580 -300 / -300 Weight 178 lb 1.6 oz 174 lb 1.6 oz Microbiology Reports for the Last 24 Hours: Microbiology 06/27/24 10:10 Blood Blood Culture - Preliminary NO GROWTH AFTER 24 HOURS 06/27/24 10:04 Blood Blood Culture - Preliminary NO GROWTH AFTER 24 HOURS Constitutional Constitutional: no acute distress *Routine Respiratory Exam Respiratory: Present CTA bilaterally and symmetric chest movement *Routine Cardiovascular Exam Cardiovascular: Present RRR, Normal S1, Normal S2 and murmur *Routine Abdominal Exam Abdominal: Present soft and normoactive bowel sounds; Absent tenderness *Routine Extremities Exam Extremities: Present full ROM and normal capillary refill; Absent edema *Routine Skin Exam Skin: Present intact, dry and warm Detailed Neck Exam: Thyroids Thyroid: Absent bruit Meds Home Medications and Allergies Home Medications ?Medication ?Instructions ?Recorded ?Confirmed ?Type memantine 10 mg tablet 10 mg PO BID 06/26/18 06/27/24 History pravastatin 80 mg tablet 80 mg PO HS Cholesterol 06/26/18 06/27/24 History donepezil 10 mg tablet 10 mg PO DAILY 01/23/23 06/27/24 History escitalopram oxalate 20 mg tablet 20 mg PO DAILY 01/23/23 06/27/24 History levothyroxine 88 mcg tablet 88 mcg PO DAILYDM 01/23/23 06/27/24 History sitagliptin phosphate 50 1 tab PO BIDWMEAL 01/23/23 06/27/24 History mg-metformin 1,000 mg tablet (Aprfeng) quetiapine 200 mg tablet 200 - 400 mg PO HS 08/16/23 06/27/24 History amlodipine 10 mg tablet 10 mg PO DAILY 30 days #30 tabs 08/19/23 06/27/24 Rx famotidine 20 mg tablet 20 mg PO BID PRN Acid Reflux 30 08/19/23 06/27/24 Rx days #0 tabs pantoprazole 40 mg tablet,delayed 40 mg PO DAILY 30 days #30 tabs 08/19/23 06/27/24 Rx release spironolactone 25 mg tablet 25 mg PO DAILY 30 days #30 tabs 08/26/23 06/27/24 Rx calcium phosphate,dibasic 77 1 tab PO DAILY 06/27/24 06/27/24 History mg-vitamin D3 400 unit tablet cyanocobalamin (vitamin B-12) 50 50 mcg PO DAILY 06/27/24 06/27/24 History mcg tablet (Vitamin B-12) irbesartan 150 mg tablet 150 mg PO DAILY 06/27/24 06/27/24 History magnesium 100 mg tablet 100 mg PO BID 06/27/24 06/27/24 History melatonin 3 mg tablet 3 mg PO HS PRN Insomnia 06/27/24 06/27/24 History nifedipine 60 mg tablet,extended 60 mg PO DAILY 06/27/24 06/27/24 History release New Prescriptions to Start Prescriptions: Allergies Allergy/AdvReac Type Severity Reaction Status Date / Time hydroxyzine (HYDROXYZINE) Allergy Unknown Unknown Verified 06/27/24 14:43 allergy reaction meperidine (From DEMEROL) Allergy Unknown Unknown Verified 06/27/24 14:43 allergy reaction rosuvastatin (From CRESTOR) Allergy Unknown Unknown Verified 06/27/24 14:43 allergy reaction Assessment and Plan *Assessment and plan (1) Acute on chronic heart failure with preserved ejection fraction (HFpEF): Status: Acute Category: Medical Code(s): I50.33 - Acute on chronic diastolic (congestive) heart failure (2) Aortic stenosis: Status: Chronic Qualifiers: Cardiac valve disease etiology: etiology unspecified Qualified Code(s): I35.0 - Nonrheumatic aortic (valve) stenosis Category: Medical Code(s): I35.0 - Nonrheumatic aortic (valve) stenosis (3) Anemia: Status: Acute Category: Medical Code(s): D64.9 - Anemia, unspecified (4) Chronic kidney disease: Status: Acute Category: Medical Code(s): N18.9 - Chronic kidney disease, unspecified Plan Acute on chronic HFpEF History of moderate to severe aortic stenosis BNP on admission 709 Troponin negative CTA chest shows moderate pulmonary edema and moderate bilateral pleural effusions Preliminary echo shows a normal ejection fraction with moderate aortic stenosis Continue Lasix 40 mg p.o. twice daily and Aldactone 25 mg p.o. daily Chronic anemia Hemoglobin 7.8 with a baseline of 10-11 Defer to primary service Chronic kidney disease History of renal artery stenosis History of peripheral artery disease Angiogram for 2023 showed moderate bilateral renal artery stenosis with hemodynamically insignificant lesions. Widely patent iliofemoral arteries with single-vessel runoff on the right leg below the knee and two-vessel runoff on the left below the knee Recommend medical management with aspirin and statin Creatinine 1.3 on admission trending up to 1.4 Closely monitor in the setting of diuresis Hyperlipidemia LDL goal less than 55, continue statin CV summary 06/28/2024: Please continue to diurese patient with Lasix 40 mg p.o. twice daily and Aldactone 25 mg p.o. daily. Anticipate discharge home tomorrow morning. Cardiac meds: Aspirin 81 mg p.o. daily Lasix 40 mg p.o. twice daily Irbesartan 150 mg p.o. daily Pravastatin 80 mg p.o. daily Aldactone 25 mg p.o. daily
[2024-06-28] MEDS: ASPIRIN EC 81MG TABLET 81 MG PO (12:59)
[2024-06-28 13:03] LABS: POC Glucose,Bedside 214 (70-110)
--- NOTE | 2024-06-28 13:11 | EXP.ACUTE.PN ---
Subjective *Date: 06/28/24 *Time: 14:38 Interval history: Denies chest pain. Says she feels better. No nausea or vomiting. Alert and oriented to baseline. Afebrile. On 2 L oxygen Medical Exam Vital signs and Labs for Last 24 Hours: Vital Signs Temp Pulse Pulse Resp BP BP Pulse Ox 06/28/24 12:11 89 17 98 06/28/24 12:11 144/52 H 06/28/24 12:00 92 H 06/28/24 12:00 98.1 F 06/28/24 11:45 78 06/28/24 11:45 78 06/28/24 11:45 92 L 06/28/24 09:15 94 L 06/28/24 09:00 06/28/24 08:00 81 94 L 06/28/24 08:00 90 06/28/24 08:00 138/61 06/28/24 08:00 86 11 L 96 06/28/24 07:50 98.7 F 06/28/24 06:35 89 06/28/24 06:35 89 06/28/24 06:30 06/28/24 06:01 89 12 97 06/28/24 06:01 155/67 H 06/28/24 06:00 91 H 11 L 95 06/28/24 05:11 177/72 H 06/28/24 05:11 95 H 16 94 L 06/28/24 05:00 195/79 H 06/28/24 05:00 90 9 L 98 06/28/24 05:00 06/28/24 04:00 90 06/28/24 04:00 168/66 H 06/28/24 04:00 97.5 F L 84 12 96 06/28/24 03:00 158/68 H 06/28/24 03:00 88 10 L 97 06/28/24 03:00 06/28/24 02:00 89 96 06/28/24 02:00 176/66 H 06/28/24 02:00 93 H 12 96 06/28/24 01:21 88 06/28/24 01:00 159/70 H 06/28/24 01:00 97 H 20 96 06/28/24 01:00 06/28/24 00:00 97.9 F 85 10 L 140/58 L 97 06/28/24 00:00 80 06/27/24 23:00 06/27/24 22:00 94 H 15 94 L 06/27/24 21:00 06/27/24 20:00 90 06/27/24 20:00 89 97 06/27/24 20:00 97.9 F 91 H 22 171/70 H 95 06/27/24 19:14 06/27/24 19:13 91 H 06/27/24 18:35 06/27/24 18:00 94 H 17 169/71 H 94 L 06/27/24 17:00 06/27/24 16:00 80 06/27/24 16:00 98.1 F 91 H 17 171/80 H 94 L 06/27/24 15:00 06/27/24 14:11 98.1 F 95 H 22 175/91 H 06/27/24 13:33 91 L 06/27/24 13:31 88 16 188/95 H 98 O2 Del Method O2 Flow Rate 06/28/24 12:11 06/28/24 12:11 06/28/24 12:00 06/28/24 12:00 06/28/24 11:45 06/28/24 11:45 06/28/24 11:45 Nasal Cannula 2 06/28/24 09:15 Nasal Cannula 2 06/28/24 09:00 Nasal Cannula 2 06/28/24 08:00 Nasal Cannula 2 06/28/24 08:00 06/28/24 08:00 06/28/24 08:00 06/28/24 07:50 06/28/24 06:35 06/28/24 06:35 06/28/24 06:30 Nasal Cannula 2 06/28/24 06:01 06/28/24 06:01 06/28/24 06:00 06/28/24 05:11 06/28/24 05:11 06/28/24 05:00 06/28/24 05:00 06/28/24 05:00 Nasal Cannula 2 06/28/24 04:00 06/28/24 04:00 06/28/24 04:00 Nasal Cannula 2 06/28/24 03:00 06/28/24 03:00 06/28/24 03:00 Nasal Cannula 2 06/28/24 02:00 Nasal Cannula 2 06/28/24 02:00 06/28/24 02:00 06/28/24 01:21 06/28/24 01:00 06/28/24 01:00 06/28/24 01:00 Nasal Cannula 2 06/28/24 00:00 Nasal Cannula 2 06/28/24 00:00 06/27/24 23:00 Nasal Cannula 2 06/27/24 22:00 Nasal Cannula 2 06/27/24 21:00 Nasal Cannula 2 06/27/24 20:00 06/27/24 20:00 Nasal Cannula 2 06/27/24 20:00 Nasal Cannula 2 06/27/24 19:14 Nasal Cannula 06/27/24 19:13 06/27/24 18:35 Nasal Cannula 2 06/27/24 18:00 Nasal Cannula 2 06/27/24 17:00 Nasal Cannula 2 06/27/24 16:00 06/27/24 16:00 Nasal Cannula 2 06/27/24 15:00 Nasal Cannula 2 06/27/24 14:11 Room Air 06/27/24 13:33 Nasal Cannula 2 06/27/24 13:31 Intake and Output 06/27/24 06/28/24 06/28/24 23:59 07:59 15:59 Intake Total 120 / 120 Output Total 2000 / 2700 300 / 300 Balance -1880 / -2580 -300 / -300 Intake: Intake, Oral Amount 120 / 120 Output: Output, Urine Amount 2000 / 2700 300 / 300 Other: Number of Voids 1 Number of Bowel Movements 1 1 Weight 78.97 kg Patient Weight 06/28/24 23:59 Weight 78.97 kg Laboratory Results - last 24 hr 06/27/24 10:12: Hemoglobin A1c 6.5 H, TSH 2.71 06/27/24 11:37: Blood Type A Positive, Antibody Screen Negative 06/27/24 13:08: Troponin I < 0.01 06/27/24 14:40: Lactate 1.9 06/27/24 14:58: Chlamy pneumoniae PCR Not detected, Adenovirus (PCR) Not detected, B. pertussis DNA (PCR) Not detected, Coronavirus OC43 (PCR) Not detected, Coronavirus HKU1 (PCR) Not detected, Coronavirus 229E (PCR) Not detected, SARS-CoV-2 (PCR) Not detected, Coronavirus NL63 (PCR) Not detected, Human Metapneumovir PCR Not detected, Influenza A (H1) PCR Not detected, Influ A (H1N1/09) PCR Not detected, Influenza A (H3) PCR Not detected, Influenza Type A (PCR) Not detected, Influenza Type B (PCR) Not detected, M. pneumoniae (PCR) Not detected, Parainfluenza 1 (PCR) Not detected, Parainfluenza 2 (PCR) Not detected, Parainfluenza 3 (PCR) Not detected, Parainfluenza 4 (PCR) Not detected, RSV (PCR) Not detected, Entero/Rhino (PCR) Not detected 06/27/24 19:59: POC Glucose 196 H 06/28/24 05:27: WBC 6.5, RBC 3.29 L, Hgb 8.4 L, Hct 27.0 L, MCV 82.1, MCH 25.5 L, MCHC 31.1 L, RDW 18.1 H, Plt Count 280, MPV 9.7, Neut % (Auto) 75.0, Lymph % (Auto) 15.1, [place] % (Auto) 8.1, Eos % (Auto) 0.8, Baso % (Auto) 0.5, Neut # (Auto) 4.9, Lymph # (Auto) 1.0, [place] # (Auto) 0.5, Eos # (Auto) 0.1, Baso # (Auto) 0.0, Sodium 136, Potassium 3.7, Chloride 98, Carbon Dioxide 28, Anion Gap 13.7, BUN 19 H, Creatinine 1.40 H, Estimated Creat Clear 43, Estimated GFR 37 L, Est GFR ( Amer) 44 L, Glucose 172 H D, Calcium 9.3, Magnesium 1.6, Iron 58, TIBC 386, Iron Saturation 15.42776, Ferritin 22.0 D, Total Bilirubin 0.4, AST 29, ALT 18, Alkaline Phosphatase 98, Total Protein 7.8, Albumin 4.4, Globulin 3.4 H, Albumin/Globulin Ratio 1.3 06/28/24 11:36: POC Glucose 214 H I & O for Labs for Last 24 Hours: Intake & Output 06/25/24 06/26/24 06/28/24 06/28/24 23:59 23:59 00:59 23:59 Intake Total 120 / 120 Output Total 2700 / 2700 300 / 300 Balance -2580 / -2580 -300 / -300 Weight 80.785 kg 78.97 kg Microbiology Reports for the Last 24 Hours: Microbiology 06/27/24 10:10 Blood Blood Culture - Preliminary NO GROWTH AFTER 24 HOURS 06/27/24 10:04 Blood Blood Culture - Preliminary NO GROWTH AFTER 24 HOURS Constitutional: Present no acute distress, obese, chronically ill appearing and cooperative Head: Present atraumatic and normocephalic ENT: Present normal exam Neck: Present normal inspection Respiratory: Present normal respiratory effort; Absent rhonchi, wheezes or crackles Cardiac: Present Reg Rate and Rhythm GI: Present soft, tenderness (Improving. Minimal upper abdomen, no guarding or rebound) and normal bowel sounds; Absent distention Extremities: Present normal inspection and full ROM Skin: Present intact; Absent erythema Neuro: Present Grossly Intact, alert, awake and moves all extremities Comment:: Oriented to self and place. Assessment and Plan *Assessment and plan (1) Acute on chronic heart failure with preserved ejection fraction (HFpEF): Status: Acute Category: Medical Code(s): I50.33 - Acute on chronic diastolic (congestive) heart failure (2) Anemia: Status: Acute Category: Medical Code(s): D64.9 - Anemia, unspecified (3) Aortic stenosis: Status: Chronic Qualifiers: Cardiac valve disease etiology: etiology unspecified Qualified Code(s): I35.0 - Nonrheumatic aortic (valve) stenosis Category: Medical Code(s): I35.0 - Nonrheumatic aortic (valve) stenosis (4) Anxiety: Status: Chronic Category: Medical Code(s): F41.9 - Anxiety disorder, unspecified (5) Diabetes: Status: Chronic Qualifiers: Diabetes mellitus type: type 2 Diabetes mellitus terminal carman insulin use: without terminal carman use Diabetes mellitus complication status: without complication Qualified Code(s): E11.9 - Type 2 diabetes mellitus without complications Category: Medical Code(s): E11.9 - Type 2 diabetes mellitus without complications (6) Obesity (BMI 30.0-34.9): Status: Chronic Category: Medical Code(s): E66.811 - Obesity, class 1 (7) Hypothyroid: Status: Chronic Qualifiers: Hypothyroidism type: acquired Qualified Code(s): E03.9 - Hypothyroidism, unspecified Category: Medical Code(s): E03.9 - Hypothyroidism, unspecified Plan Ms. Barraza is a 78-year-old female with history of , HFpEF, obesity, hypothyroid. Presented with dyspnea. Review of chart shows that she also has cirrhosis per imaging. Workup concerning for acute on chronic heart failure exacerbation versus worsening aortic stenosis causing her dyspnea. Discussed case with ER physician, request admission for diuresis and further management. Agreed to admit. Cardiology assessing today. Echo pending. Responding to diuretics. Downgrade to [facility] with telemetry. Monitor overnight. Anticipate discharge tomorrow. Problems addressed as follows: Acute on chronic HFpEF Aortic stenosis - Continue irbesartan 150 mg daily for hypertension, continue spironolactone 25 mg daily -Goal sats greater 90%. Continue supplemental oxygen as needed. Currently on 2 L - Echo reviewed with EF of 60%. Stable VERNON of 1.1 cm?. Elevated RVSP at 35 mmHg -Discussed case with cardiology, recommend continuing Lasix 40 mg twice daily, transition to oral. Continue Aldactone 25 mg daily. Monitor for an additional 24 hours, wean oxygen as tolerated. Anemia: Hemoglobin and day 0.4. Baseline 10-11. MCV normal. Iron saturation 15%, ferritin 22, TIBC of 386. Iron level 58. Suspect secondary to chronic disease. CKD 3A: Creatinine 1.4, BUN 19. Appears at baseline. Repeat CBC, CMP, magnesium ordered for the morning. 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 -Needs outpatient referral to GI. Does not appear that she has seen GI since last visit. Mild cognitive impairment: - On memantine 10 mg twice a day and donepezil 10 mg daily at home. Appears to have poor understanding of her medical history and does not recall diagnoses previously discussed per documentation. Definitely impacts her overall health care and condition management. - Continue memantine 10 mg twice daily, Seroquel 200 mg night sleep, donepezil 10 mg daily - PT and OT consulted to evaluate for placement versus home with home health. Diabetes: A1c 6.5, continue sliding scale insulin with fingersticks ACHS. Morning glucose 172 Hypothyroidism: TSH 2.7, continue levothyroxine 88 mcg daily DNR/DNI Cardiac diet, n.p.o. at midnight Holding anticoagulation in the setting of anemia
--- NOTE | 2024-06-28 14:17 | PC.NURSE ---
arrived by w/c at 14:14 from ICU
--- NOTE | 2024-06-28 15:30 | PC.NURSE ---
Patient alert and oriented. VSS. Weaning to 1L O2. Denies pain. Up with SBA to BR for voids. Plan to continue diuresing tonight and assess for possible discharge tomorrow
[2024-06-28 16:07] LABS: POC Glucose,Bedside 237 (70-110)
--- NOTE | 2024-06-28 16:40 | CA_ITS ---
APPROVED REPORT EXAM: Comprehensive 2D, Doppler, and color-flow Echocardiogram Ota: Alba Perez RT(R) Ht: 5 ft 1 in Wt: 174lbs BSA: 1.78 BP: 172/69 mmHg Indications: HF, HTN, DM, SOB, hx cardiac ablation, echo 08/15/23 mod-severe , mild MS. 2D Dimensions Left Atrium 3.98 cm F: 2.7 - 3.8 LVEF (Deal's) 51.00 % F: 54 - 74 LVOT 1.95 cm (M/F) 1.5-2.5 LV Volume 86.20 mL F: 46 - 106 LV Volume Index 48.4 mL/m2 F: 29 - 61 LA Volume 65.20 mL LA Volume Index 36.63 mL/m2 (M/F) 16-34 EF AP4 59.30 % EF AP2 42.7 % EF BP 51.0 % GL Strain -11.8 % M-Mode Dimensions RVDd 2.29 cm (0.9-2.6) LVDd 3.61 cm (3.5-5.7) Ao Diam 2.40 cm (2.0-3.7) LVDs 2.68 cm (3.5-5.7) IVSd 1.18 cm (0.6-1.1) PWd 1.14 cm (0.6-1.1) EF (Teich) 51.60% FS 25.80% EDV (Teich) 54.80 mL ESV (Teich) 26.50 mL LV Diastology E Decel Time 131 (160-240 msec) E/A Ratio 1.0 MED E' 4.9 (>= 7 cm/sec) E'/MED E' Ratio 24.55 (<= 14) LAT E' 7.7 (>= 10 cm/sec) E/LAT E' Ratio 15.62 (<= 14) Aortic Valve LVOT Max 118.0 (70-110 cm/s) VERNON Index 0.57 cm2/m2 LVOT VTI 23.62 cm AoV Peak Jacob. 373.0 (50-130 cm/s) AO Mean GR. 27.40 (<5 mmHg) AO VTI 69.9 (18-25 cm) VERNON (VTI) 1.01 (2.5-4.5 cm2) Mitral Valve MV E Max Jacob. 120.0 (40-130 cm/s) MV A Velocity 119.0 (40-130 cm/s) E/A Ratio 1.01 MV Decel. Time 131 (160-240 ms) MV PHT 61.0 ms Tricuspid Valve TR P. Velocity 301.00 cm/s RAP Estimate 10.00 mmHg RVSP 46.30 mmHg Left Ventricle The left ventricle is normal size. The left ventricular systolic function is normal. The left ventricular ejection fraction is within the normal range. There is increased LV wall thickness. There is normal LV segmental wall motion. LVEF is 60%. Right Ventricle The right ventricle is normal size. The right ventricular systolic function is normal. Atria The left atrium is moderately dilated. The right atrium size is normal. The interatrial septum is not well-visualized. Aortic Valve The aortic valve is moderately thickened. Mild aortic regurgitation. Moderate to severe aortic stenosis is present. VERNON by continuity equation is 1.1 cm???. Peak velocity 3.6 m/s. Mean AV gradient 26 mmHg. Max AV gradient 52 mmHg. Mitral Valve Mild mitral annular calcification. The mitral valve leaflets are mildly thickened. Mild mitral stenosis is present. Mean MV gradient is 5 mmHg (HR 91 bpm). Tricuspid Valve Tricuspid valve is grossly normal in structure and function. Mild tricuspid regurgitation. RVSP is 35 mmHg + RA pressure. Pulmonic Valve The pulmonary valve is normal in structure. Trace pulmonic regurgitation. Great Vessels The aortic root is normal in size. The IVC is not well-visualized. Pericardium There is no pericardial effusion. Other Information Study Quality: Fair Conclusion Normal biventricular systolic function. LA dilation. Moderate to severe (VERNON by continuity equation is 1.1 cm???. Peak velocity 3.6 m/s. Mean AV gradient 26 mmHg. Max AV gradient 52 mmHg). Mild MS (mean MV gradient is 5 mmHg (HR 91 bpm). Mild AI, mild MR, mild TR. RVSP is 35 mmHg + RA pressure. Electronically signed by : Nidia Moncada MD 06/28/2024 12:55:55
[2024-06-28] MEDS: MAGNESIUM SULFATE IN WATER 2 GM/50 ML PIGGYBACK IV ×2 (20:37→22:08)
[2024-06-28] MEDS: PRAVASTATIN 40MG TAB 80 MG PO (20:38)
[2024-06-28] MEDS: QUETIAPINE 100MG TABLET 200 MG PO (20:38)
[2024-06-29] VITALS (24 sets, daily range): BP systolic 96–145; BP diastolic 42–92; PULSE 70–122; RESP 12–24; TEMP 36.6–36.7; O2SAT 90–96; BMI 29.2
--- NOTE | 2024-06-29 01:37 | ECG_ITS ---
APPROVED REPORT Exam: Resting ECG HR:141 bpm ECG Measurements Heart Rate 141 AXES QRSd 125 QRS -37 QT 321 T 85 QTc 403 Conclusion ATRIAL FIBRILLATION WITH RAPID VENTRICULAR RESPONSE LEFT AXIS DEVIATION [QRS AXIS < -30] POSSIBLE LEFT VENTRICULAR HYPERTROPHY [VOLTAGE CRITERIA PLUS LAE OR QRS WIDENING] NONSPECIFIC ST & T-WAVE ABNORMALITY ABNORMAL ECG UNCONFIRMED REPORT Electronically signed by : Sravan Anderson MD 06/29/2024 08:50:21
[2024-06-29] MEDS: LABETALOL 5MG/ML 20ML MDV 10 MG IV ×3 (01:48→02:39)
--- NOTE | 2024-06-29 02:05 | EXP.EVENT.NO ---
Problem: New onset tachycardia, had been running just above the 100 now running 140. Twelve-lead obtained showing A-fib with RVR. Per patient's history she had an ablation done as she thinks somewhere between 10 to 15 years ago due to A-fib. In reviewing patient's chart patient has been on calcium channel blockers that are being held at this time. Patient noted with acute on chronic congestive heart failure with cardiac stenosis. Patient has been seen by cardiology expecting an echo cardiogram to be done in the a.m.. Exam: Patient is awake alert oriented and reports that she is in no distress cardiac: Heart sounds are basically normal but rate is definitely at the 140s which matches with the EKG.. Lungs: Clear to auscultation throughout patient is in no respiratory distress is on room air with normal saturation Neuro: No acute changes the patient is giving me a good history she appears totally coherent and in charge of her faculties with no signs of weakness to either side. Skin: Skin remains pink warm and dry nailbeds have brisk capillary refill. Plan: After nurse called me EKG was ordered which did show the A-fib. Patient had been on calcium channel blockers but could not showing some pulmonary infiltrates have been receiving diuretics and calcium channel blockers had been stopped. Due to the patient having congestive heart failure we will try to convert her back harshly slow the heart rate to closer to 100 again is with a beta-elif IV. Plan on using labetalol 10 mg IV slow push every 15 minutes x 3 doses.. If this does not work may need to try Cardizem as a slow IV push to try to get rate closer to 100 if it stays in the 140s.. 1 dose of subcu Lovenox has been ordered. 02:39: Cardiac rate has decreased more to the 120s but is still fluctuating between 100 226.. Patient remains calm without any signs of chest pain. Will repeat a third dose of labetalol 10 mg.. Will give approximately 15 to 20 minutes if not improved will give a IV bolus of Cardizem at 0.25/mg/kg and may repeat that if needed.. Due to her history of congestive heart failure and going to try to limit calcium channel blockers if able.. 03:00 after third dose of labetalol heart rate is staying in the 120s, blood pressure is staying in the 1 teens systolic. Will try 1 dose of Cardizem, 8 mg slow IV push over 2 minutes. 04:56 patient still stable systolic blood pressure in 120s. Patient remains in A-fib, going between about 100-120. But over the last 20 minutes this started to creep up towards 130. For this reason we will go ahead and repeat Cardizem bolus 1 more time., Will continue to monitor if a continuous drip is needed.. Trying to hold off on that to see if oral medication would be restarted by the community health nurse supervisor versus trying to convert her by IV Cardizem with the history of CHF possibly worsened by calcium channel blockers. Patient is presently stable
[2024-06-29] MEDS: ENOXAPARIN 40MG/0.4ML SYRINGE 40 MG SUBCUT (02:19)
[2024-06-29] MEDS: dilTIAZem 25MG/5ML VIAL 8 MG IV ×2 (03:15→05:25)
--- NOTE | 2024-06-29 03:48 | PC.NURSE ---
Was called and informed that pts HR was sustaining in the 140's-150's. Pt denied any SOA or chest pain. Hospitalist was notified and and EKG was ordered. It revealed AFib with RVR. Labetalol 10 mg was ordered. Pt received a total of 3 doses. HR after the 3 doses was still sustaining in the 120's-130's. Lovenox was ordered as well as 8mg Cardizem. After the Cardizem pts HR is sitting around 120. Spoke with Hospitalist who states he is fine with HR at 120 and to let him know if it gets back to 130.
[2024-06-29] MEDS: LEVOTHYROXINE 88MCG (0.088MG) TAB 88 MCG PO (06:11)
[2024-06-29] MEDS: humaLOG 100 UNITS/ML 10ML VIAL (SSI) SUBCUT ×4 (06:13→20:48)
[2024-06-29] MEDS: IPRATROPIUM/ALBUTEROL 3 ML NEB IH ×4 (06:19→23:29)
[2024-06-29 06:35] LABS: Basophils # 0.1 K/mm3 (0-0.2); Basophils % 0.7 % (0.1-2.0); Eosinophils # 0.1 K/mm3 (0.0-0.4); Eosinophils % 1.4 % (0.1-12.0); Hemoglobin 9.4 g/dL (12.2-16.2); Lymphocytes % 13.2 % (10-50); Mean Corpuscular HGB Conc 30.3 g/dL (31.8-35.4); Mean Corpuscular Hemoglobin 24.7 pg (27.0-31.2); Mean Corpuscular Volume 81.4 fl (81-99); Mean Platelet Volume 9.5 fl (7.4-10.4); Monocytes # 0.7 K/mm3 (0.1-1.0); Monocytes % 9.4 % (1.7-9.3); Neutrophils # 5.7 K/mm3 (1.8-7.8); Neutrophils % 74.9 % (37.0-80.0); Platelet Count 318 K/mm3 (142-424); Red Blood Count 3.81 M/mm3 (4.20-5.40); Red Cell Distribution Width 18.6 % (11.5-17.5); White Blood Count 7.6 K/mm3 (4.8-10.8)
[2024-06-29 06:42] LABS: POC Glucose,Bedside 172 (70-110)
[2024-06-29 06:42] LABS: POC Glucose,Bedside 242 (70-110)
[2024-06-29 06:54] LABS: Alanine Aminotransferase 18 U/L (12-78); Albumin Level 4.6 g/dl (3.5-5.0); Albumin/Globulin Ratio 1.3 (1.1-1.8); Alkaline Phosphatase 108 U/L (38-126); Anion Gap 13.9 mEq/L (5-15); Aspartate Amino Transferase 33 U/L (14-36); Bilirubin,Total 0.3 mg/dl (0.2-1.3); Blood Urea Nitrogen 23 mg/dl (7-17); Calcium 9.4 mg/dl (8.4-10.2); Carbon Dioxide 29 mmol/L (22.0-30.0); Chloride 95 mmol/L (98-107); Creatinine Clearance Estimated 37 mL/min (50-200); Estimated Glomerular Filt Rate 31 ml/min (>60); GFR (African American) 38 ML/MIN (>60); Globulin 3.5 g/dL (1.3-3.2); Glucose 229 mg/dl (74-100); Magnesium 2.6 mg/dl (1.6-2.3); Potassium 3.9 mmoL/L (3.5-5.1); Sodium 134 mmol/L (136-145); Total Protein,Serum 8.1 g/dl (6.3-8.2)
[2024-06-29] MEDS: IRBESARTAN 150MG TAB 150 MG PO (08:10)
[2024-06-29] MEDS: CITALOPRAM 40MG TABLET 40 MG PO (08:10)
[2024-06-29] MEDS: FUROSEMIDE 40MG/4ML VIAL 40 MG IV (08:10)
[2024-06-29] MEDS: SPIRONOLACTONE 25MG TABLET 25 MG PO (08:10)
[2024-06-29] MEDS: PANTOPRAZOLE 40MG TABLET 40 MG PO (08:10)
[2024-06-29] MEDS: ASPIRIN EC 81MG TABLET 81 MG PO (08:10)
[2024-06-29] MEDS: MEMANTINE 10MG TABLET 10 MG PO ×2 (08:10→20:49)
[2024-06-29] MEDS: DONEPEZIL 10MG TAB 10 MG PO (08:10)
[2024-06-29] MEDS: METOPROLOL TARTRATE 5MG/5ML VIAL 5 MG IV (09:42)
--- NOTE | 2024-06-29 10:12 | ECG_ITS ---
APPROVED REPORT Exam: Resting ECG HR:120 bpm ECG Measurements Heart Rate 120 AXES MN 236 P -59 QRSd 98 QRS -42 QT 332 T 83 QTc 404 Conclusion ECTOPIC ATRIAL TACHYCARDIA WITH FIRST DEGREE AV BLOCK LEFT AXIS DEVIATION [QRS AXIS < -30] MODERATE VOLTAGE CRITERIA FOR LVH, CONSIDER NORMAL VARIANT [MEETS CRITERIA IN ONE OF: R(aVL), S(V1), R(V5), R(V5/V6)+S(V1)] POSSIBLE ANTERIOR MYOCARDIAL INFARCTION , OF INDETERMINATE AGE [30 ms Q WAVE IN V3/V4, OR R < 0.2 mV IN V4] ABNORMAL ECG UNCONFIRMED REPORT Electronically signed by : Sravan Anderson MD 07/05/2024 08:57:05
--- NOTE | 2024-06-29 10:45 | P.PN_ITS ---
Subjective Subjective Date: 06/29/24 Time: 08:30 Principal diagnosis: HFpEF, aortic stenosis Interval history: Patient developed A-fib RVR at a rate of 120 last night. Patient was given multiple boluses of diltiazem without rate control achieved. Morning labs reviewed creatinine up to 1.6 from a baseline of 1.3. Exam Data for Last 24 hours Vital signs and Labs for Last 24 Hours: Temp Pulse Resp BP Pulse Ox O2 Del Method O2 Flow Rate 98 F 120 H 20 122/75 93 L Room Air 1 06/29/24 07:38 06/29/24 08:00 06/29/24 07:38 06/29/24 09:22 06/29/24 07:38 06/29/24 07:38 06/28/24 16:00 Laboratory Results - last 24 hr 06/28/24 11:36: POC Glucose 214 H 06/28/24 15:59: POC Glucose 237 H 06/28/24 20:36: POC Glucose 172 H 06/29/24 05:44: WBC 7.6, RBC 3.81 L, Hgb 9.4 L, Hct 31.0 L, MCV 81.4, MCH 24.7 L , MCHC 30.3 L, RDW 18.6 H, Plt Count 318, MPV 9.5, Neut % (Auto) 74.9, Lymph % (Auto) 13.2, [place] % (Auto) 9.4 H, Eos % (Auto) 1.4, Baso % (Auto) 0.7, Neut # (Auto) 5.7, Lymph # (Auto) 1.0, [place] # (Auto) 0.7, Eos # (Auto) 0.1, Baso # (Auto) 0.1, Sodium 134 L, Potassium 3.9, Chloride 95 L, Carbon Dioxide 29, Anion Gap 13.9, BUN 23 H, Creatinine 1.60 H, Estimated Creat Clear 37, Estimated GFR 31 L, Est GFR ( Amer) 38 L, Glucose 229 H, Calcium 9.4, Magnesium 2.6 H D , Total Bilirubin 0.3, AST 33, ALT 18, Alkaline Phosphatase 108, Total Protein 8.1, Albumin 4.6, Globulin 3.5 H, Albumin/Globulin Ratio 1.3 06/29/24 06:12: POC Glucose 242 H I & O for Last 24 hours: Intake & Output 03/08/25 03/10/25 03/10/25 03/11/25 23:59 00:59 23:59 23:59 Intake Total 120 / 120 700 / 950 730 / 730 Output Total 2700 / 2700 650 / 650 Balance -2580 / -2580 50 / 300 730 / 730 Weight 178 lb 1.6 oz 174 lb 1.6 oz 171 lb 3.2 oz Microbiology Reports for the Last 24 Hours: Microbiology 06/27/24 10:10 Blood Blood Culture - Preliminary NO GROWTH AFTER 48 HOURS 06/27/24 10:04 Blood Blood Culture - Preliminary NO GROWTH AFTER 48 HOURS Constitutional Constitutional: no acute distress *Routine Respiratory Exam Respiratory: Present CTA bilaterally and symmetric chest movement *Routine Cardiovascular Exam Cardiovascular: Present RRR, Normal S1 and Normal S2 *Routine Abdominal Exam Abdominal: Present soft and normoactive bowel sounds; Absent tenderness *Routine Extremities Exam Extremities: Present full ROM and normal capillary refill; Absent edema *Routine Skin Exam Skin: Present intact, dry and warm Detailed Neck Exam: Thyroids Thyroid: Absent bruit Progress Note: A&P Assessment and plan (1) Acute on chronic heart failure with preserved ejection fraction (HFpEF): Status: Acute (2) Anemia: Status: Acute (3) Aortic stenosis: Status: Chronic (4) Anxiety: Status: Chronic (5) Diabetes: Status: Chronic (6) Obesity (BMI 30.0-34.9): Status: Chronic (7) Hypothyroid: Status: Chronic Assessment and Plan Assessment and Plan for All Diagnoses:: Acute on chronic HFpEF History of moderate to severe aortic stenosis BNP on admission 709 Troponin negative CTA chest shows moderate pulmonary edema and moderate bilateral pleural effusions Echo shows a normal EF, moderate to severe , mild MS, AI, MR, and TR. RVSP is 35 Symptoms improving Decrease Lasix to 40 p.o. daily and Continue Aldactone 25 mg p.o. daily A-fib RVR Chadsvasc score >2 Status post ablation 12 to 15 years ago 250 normal saline bolus x 1 Rate control achieved with diltiazem 20 mg IV bolus x 1 Start diltiazem 240 mg ER p.o. daily Start renal adjusted Xarelto 15 mg p.o. daily Chronic anemia Hemoglobin 9.4 with a baseline of 10-11 Defer to primary service Chronic kidney disease History of renal artery stenosis History of peripheral artery disease Angiogram for 2023 showed moderate bilateral renal artery stenosis with hemodynamically insignificant lesions. Widely patent iliofemoral arteries with single-vessel runoff on the right leg below the knee and two-vessel runoff on the left below the knee Recommend medical management with aspirin and statin Creatinine 1.3 on admission trending up to 1.6 Closely monitor in the setting of diuresis Hyperlipidemia LDL goal less than 55, continue statin CV summary 06/29/2024: Rate controlled with diltiazem bolus. Start Diltiazem ER 240mg po daily and xarelto 15mg po daily. Anticipate dc home in AM. Cardiac meds: Aspirin 81 mg p.o. daily Lasix 40 mg p.o. twice daily Irbesartan 150 mg p.o. daily Pravastatin 80 mg p.o. daily Aldactone 25 mg p.o. daily Diltizem 240mg p.o. daily xarelto 15mg p.o. daily
[2024-06-29] MEDS: SODIUM CHLORIDE 0.9% 250ML BAG 250 ML IV (10:59)
[2024-06-29 11:31] LABS: POC Glucose,Bedside 299 (70-110)
[2024-06-29] MEDS: dilTIAZem 25MG/5ML VIAL 20 MG IV ×2 (11:43→15:35)
[2024-06-29] MEDS: dilTIAZem ER 240MG CAPSULE 240 MG PO (12:09)
[2024-06-29] MEDS: 0.9 % SODIUM CHLORIDE 1000ML 250 ML IV (18:05)
--- NOTE | 2024-06-29 18:08 | PC.NURSE ---
Pt remains Afib. HR more controlled. Pt given IV Diltiazem 4 mg IV. HR 110s to 120s. Pt states she has difficulty with ambulation. Pt noted to have syncopal episode while standing. Pt instructed to use BSC at this time. She also was educated to use incentive spirometer and get up to chair with meals to build strength. BP is currently stable. Call light within reach. Family at bedside.
[2024-06-29 18:27] LABS: POC Glucose,Bedside 219 (70-110)
[2024-06-29] MEDS: RIVAROXABAN 15MG TABLET 15 MG PO (20:49)
[2024-06-29] MEDS: QUETIAPINE 100MG TABLET 200 MG PO (20:49)
[2024-06-29] MEDS: PRAVASTATIN 40MG TAB 80 MG PO (20:49)
[2024-06-29] MEDS: METOPROLOL TARTRATE 25MG TABLET 25 MG PO (20:49)
--- NOTE | 2024-06-29 22:19 | P.PN_ITS ---
Subjective *Date: 06/29/24 *Time: 22:19 Interval history: Patient feels better today, edema resolved. Unfortunately developed A-fib RVR overnight, started on diltiazem to 40 mg but continues to have RVR. Added metoprolol tartrate 25 mg twice daily. Follow-up heart rate. Exam Data for Last 24 hours Vital signs and Labs for Last 24 Hours: Temp Pulse Resp BP Pulse Ox O2 Del Method O2 Flow Rate 98.0 F 120 H 24 115/92 H 94 L Room Air 92 06/29/24 18:05 06/29/24 20:00 06/29/24 16:00 06/29/24 16:00 06/29/24 18:20 06/29/24 20:00 06/29/24 12:32 Laboratory Results - last 24 hr 06/28/24 20:36: POC Glucose 172 H 06/29/24 05:44: WBC 7.6, RBC 3.81 L, Hgb 9.4 L, Hct 31.0 L, MCV 81.4, MCH 24.7 L , MCHC 30.3 L, RDW 18.6 H, Plt Count 318, MPV 9.5, Neut % (Auto) 74.9, Lymph % (Auto) 13.2, [place] % (Auto) 9.4 H, Eos % (Auto) 1.4, Baso % (Auto) 0.7, Neut # (Auto) 5.7, Lymph # (Auto) 1.0, [place] # (Auto) 0.7, Eos # (Auto) 0.1, Baso # (Auto) 0.1, Sodium 134 L, Potassium 3.9, Chloride 95 L, Carbon Dioxide 29, Anion Gap 13.9, BUN 23 H, Creatinine 1.60 H, Estimated Creat Clear 37, Estimated GFR 31 L, Est GFR ( Amer) 38 L, Glucose 229 H, Calcium 9.4, Magnesium 2.6 H D , Total Bilirubin 0.3, AST 33, ALT 18, Alkaline Phosphatase 108, Total Protein 8.1, Albumin 4.6, Globulin 3.5 H, Albumin/Globulin Ratio 1.3 06/29/24 06:12: POC Glucose 242 H 06/29/24 11:10: POC Glucose 299 H 06/29/24 17:44: POC Glucose 219 H I & O for Last 24 hours: Intake & Output 03/08/25 03/10/25 03/10/25 03/11/25 23:59 00:59 23:59 23:59 Intake Total 120 / 120 700 / 950 1290 / 1290 Output Total 2700 / 2700 650 / 650 550 / 550 Balance -2580 / -2580 50 / 300 740 / 740 Weight 80.785 kg 78.97 kg 77.6 kg Microbiology Reports for the Last 24 Hours: Microbiology 06/27/24 10:10 Blood Blood Culture - Preliminary NO GROWTH AFTER 48 HOURS 06/27/24 10:04 Blood Blood Culture - Preliminary NO GROWTH AFTER 48 HOURS Constitutional Constitutional: no acute distress *Routine HEENT Exam Head: Present normocephalic Eye: Present EOMI and PERRL ENT: Present mucous membranes moist *Routine Neck Exam Neck: Present supple; Absent lymphadenopathy *Routine Respiratory Exam Respiratory: Present CTA bilaterally *Routine Cardiovascular Exam Cardiovascular: Present tachycardia and irregularly irregular *Routine Abdominal Exam Abdominal: Present soft and normoactive bowel sounds; Absent tenderness *Routine Extremities Exam Extremities: Absent cyanosis, clubbing or edema *Routine Skin Exam Skin: Present warm; Absent rash *Routine Neurological Exam Neurological: Present alert and oriented X3 Assessment and Plan *Assessment and plan (1) Acute on chronic heart failure with preserved ejection fraction (HFpEF): Status: Acute Category: Medical Code(s): I50.33 - Acute on chronic diastolic (congestive) heart failure (2) Anemia: Status: Acute Category: Medical Code(s): D64.9 - Anemia, unspecified (3) Aortic stenosis: Status: Chronic Qualifiers: Cardiac valve disease etiology: etiology unspecified Qualified Code(s): I35.0 - Nonrheumatic aortic (valve) stenosis Category: Medical Code(s): I35.0 - Nonrheumatic aortic (valve) stenosis (4) Anxiety: Status: Chronic Category: Medical Code(s): F41.9 - Anxiety disorder, unspecified (5) Diabetes: Status: Chronic Qualifiers: Diabetes mellitus type: type 2 Diabetes mellitus skilled nursing insulin use: without skilled nursing use Diabetes mellitus complication status: without complication Qualified Code(s): E11.9 - Type 2 diabetes mellitus without complications Category: Medical Code(s): E11.9 - Type 2 diabetes mellitus without complications (6) Obesity (BMI 30.0-34.9): Status: Chronic Category: Medical Code(s): E66.811 - Obesity, class 1 (7) Hypothyroid: Status: Chronic Qualifiers: Hypothyroidism type: acquired Qualified Code(s): E03.9 - Hypothyroidism, unspecified Category: Medical Code(s): E03.9 - Hypothyroidism, unspecified Plan Ms. Barraza is a 78-year-old female with history of , HFpEF, obesity, hypothyroid. Presented with dyspnea and admitted for HFpEF exacerbation. Hospital course complicated by A-fib RVR. #A-fib RVR, new onset ? Patient had new onset A-fib RVR with heart rate in the 120s to 130s. Given 250 mL boluses x 2 for suspected hypovolemia from diuresis without improvement in heart rate. ? Cardiology ordered IV diltiazem 20 mg bolus and transitioned to oral diltiazem 240 mg, which temporarily improved rate to 90s but now back in the 120s. ? Started metoprolol tartrate 25 mg twice daily to help better control heart rate. ? Xarelto 20 mg nightly. ? Follow-up morning CXR. Acute on chronic HFpEF Aortic stenosis - Initial BNP 709 with lower extremity pitting edema. Now resolved. - Continue irbesartan 150 mg daily for hypertension, continue spironolactone 25 mg daily - Echo reviewed with EF of 60%. Stable VERNON of 1.1 cm?. Elevated RVSP at 35 mmHg ? Cardiology transition to oral Lasix 40 mg daily. Continue spironolactone 25 mg. ? Cardiology planning to refer to for further evaluation management of symptomatic aortic stenosis. Anemia: Hemoglobin stable. Baseline 10-11. MCV normal. Iron saturation 15%, ferritin 22, TIBC of 386. Iron level 58. Suspect secondary to chronic disease. CKD 3A: Creatinine 1.6. Appears at baseline. Repeat CBC, CMP, magnesium ordered for the morning. 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 -Needs outpatient referral to GI. Does not appear that she has seen GI since last visit. Continue Lasix, spironolactone as above. Mild cognitive impairment: - On memantine 10 mg twice a day and donepezil 10 mg daily at home. Appears to have poor understanding of her medical history and does not recall diagnoses previously discussed per documentation. Definitely impacts her overall health care and condition management. - Continue memantine 10 mg twice daily, Seroquel 200 mg night sleep, donepezil 10 mg daily - PT and OT recommended home health. Diabetes: A1c 6.5, continue sliding scale insulin with fingersticks ACHS. Hypothyroidism: TSH 2.7, continue levothyroxine 88 mcg daily DNR/DNI Cardiac diet DVT prophylaxis: Xarelto
[2024-06-30] VITALS (7 sets, daily range): BP systolic 104–127; BP diastolic 51–71; PULSE 73–120; RESP 12–16; TEMP 36.4–36.6; O2SAT 90–98; BMI 29.3
[2024-06-30 01:45] LABS: POC Glucose,Bedside 173 (70-110)
--- NOTE | 2024-06-30 05:42 | PC.NURSE ---
patient is alert and oriented x3, rested well this shift. patient remains in AFIB with HR 99-120. no acute change since previous assessment. no complaints of pain, call button is in reach
[2024-06-30] MEDS: humaLOG 100 UNITS/ML 10ML VIAL (SSI) SUBCUT ×2 (05:52→10:37)
[2024-06-30] MEDS: LEVOTHYROXINE 88MCG (0.088MG) TAB 88 MCG PO (06:02)
[2024-06-30 06:09] LABS: Basophils % 0.4 % (0.1-2.0); Eosinophils # 0.2 K/mm3 (0.0-0.4); Eosinophils % 2.7 % (0.1-12.0); Hematocrit 29.1 % (37.0-47.0); Hemoglobin 8.8 g/dL (12.2-16.2); Lymphocytes # 1.6 K/mm3 (0.7-4.5); Mean Corpuscular HGB Conc 30.2 g/dL (31.8-35.4); Mean Corpuscular Hemoglobin 24.7 pg (27.0-31.2); Mean Corpuscular Volume 81.7 fl (81-99); Mean Platelet Volume 9.8 fl (7.4-10.4); Monocytes # 0.7 K/mm3 (0.1-1.0); Monocytes % 9.4 % (1.7-9.3); Neutrophils # 5.2 K/mm3 (1.8-7.8); Neutrophils % 67.2 % (37.0-80.0); Platelet Count 307 K/mm3 (142-424); Red Blood Count 3.56 M/mm3 (4.20-5.40); Red Cell Distribution Width 18.1 % (11.5-17.5); White Blood Count 7.7 K/mm3 (4.8-10.8)
[2024-06-30 06:11] LABS: POC Glucose,Bedside 241 (70-110)
[2024-06-30 06:19] LABS: Alanine Aminotransferase 19 U/L (12-78); Albumin Level 4.1 g/dl (3.5-5.0); Albumin/Globulin Ratio 1.2 (1.1-1.8); Alkaline Phosphatase 86 U/L (38-126); Anion Gap 13.8 mEq/L (5-15); Aspartate Amino Transferase 33 U/L (14-36); Bilirubin,Total 0.2 mg/dl (0.2-1.3); Blood Urea Nitrogen 33 mg/dl (7-17); Calcium 8.9 mg/dl (8.4-10.2); Carbon Dioxide 27 mmol/L (22.0-30.0); Chloride 98 mmol/L (98-107); Creatinine Clearance Estimated 33 mL/min (50-200); Estimated Glomerular Filt Rate 27 ml/min (>60); GFR (African American) 33 ML/MIN (>60); Globulin 3.3 g/dL (1.3-3.2); Glucose 217 mg/dl (74-100); Potassium 3.8 mmoL/L (3.5-5.1); Sodium 135 mmol/L (136-145); Total Protein,Serum 7.4 g/dl (6.3-8.2)
[2024-06-30] MEDS: IPRATROPIUM/ALBUTEROL 3 ML NEB IH ×2 (06:50→10:54)
--- NOTE | 2024-06-30 07:52 | XR_ITS ---
FINAL REPORT CLINICAL HISTORY: f/u opacities and effusions COMPARISON: 06/27/2024 FINDINGS: SINGLE VIEW CHEST The heart is normal in size. The mediastinum is unremarkable. The lungs are underinflated but clear. There is no pneumothorax. IMPRESSION: No acute process. Reviewed, Interpreted and Dictated by Benito Gresham MD Transcribed by Padmini Gonzalez Authenticated and [facility]
[2024-06-30] MEDS: DONEPEZIL 10MG TAB 10 MG PO (08:31)
[2024-06-30] MEDS: MEMANTINE 10MG TABLET 10 MG PO (08:31)
[2024-06-30] MEDS: ASPIRIN EC 81MG TABLET 81 MG PO (08:31)
[2024-06-30] MEDS: IRBESARTAN 150MG TAB 150 MG PO (08:31)
[2024-06-30] MEDS: SPIRONOLACTONE 25MG TABLET 25 MG PO (08:31)
[2024-06-30] MEDS: CITALOPRAM 40MG TABLET 40 MG PO (08:31)
[2024-06-30] MEDS: dilTIAZem ER 240MG CAPSULE 240 MG PO (08:31)
[2024-06-30] MEDS: FUROSEMIDE 40 MG TABLET PO (08:31)
[2024-06-30] MEDS: METOPROLOL TARTRATE 25MG TABLET 25 MG PO (08:31)
[2024-06-30] MEDS: PANTOPRAZOLE 40MG TABLET 40 MG PO (08:31)
[2024-06-30] MEDS: IRON SUCROSE COMPLEX 200 MG in 0.9 % SODIUM CHLORIDE 100 ML 220 MG IV (08:43)
--- NOTE | 2024-06-30 09:09 | HMH.IPREAS ---
Rehab IP Re-assessment Rehab IP Re-assessment Start: 06/30/24 09:06 Freq: Status: Active Protocol: Document 06/30/24 09:06 BHARAT (Rec: 06/30/24 09:09 BHARAT [id number]) E-signed By Moisés Corley, PT Subjective Subjective Subjective 78-year-old female with history of diabetes, hypothyroid, hypertension, aortic stenosis, HFpEF. She presented to the ER with increased cough and shortness of breath. States that she has been short of breath for past day or 2. No known sick contacts. No fever. Cough nonproductive. On initial workup, patient states she cannot catch her breath. Worse shortness of breath with exertion. Denies any swelling in her legs. She reports she lives with her , 1-2 JUNI the home, and she is generally independent with all mobility and ambulation without an AD at baseline. Pt reports she had a syncopal episode yesterday and felt lightheaded most of the day, but feels much better today. Rehab IP PT Reassessment Eval Objective Appearance Patient Behavior Appropriate,Cooperative Patient Orientation Person,Place,Time Speech Pattern Clear Ambulation Patient Able to Ambulate Yes Ambulation Observation IP General Gait Pattern Observation No Deviations/Normal Ambulation Distance (feet) 200 Ambulation Assistive Device None Ambulation Ability Supervision/Stand by Balance Ability to Arise Able, uses arms to help Sitting Balance Steady, safe Standing Balance Steady, wide stance Dynamic Sitting Balance Ability Good Dynamic Standing Balance Ability Good Transfers Bed Transfer Ability Supervision/Stand by Chair Transfer Ability Supervision/Stand by Sit to Stand Bed Transfer Ability Supervision/Stand by Sit to Stand Chair Transfer Ability Supervision/Stand by Rehab IP PT Reassessment of problems, goals, plan Problems Date of Evaluation: 06/30/24 Discharge Plan PT Discharge Plan Pt again presents as appropriate to return home once medically stable. No current inpatient acute therapy needs at this time. Continue to recommend home health therapy after d/c. G -code Required No IP Reassessment Inpatient Rehab Reassessment Performed Yes PHYSICIAN CERTIFICATION: I certify the specified therapy services for Yuki Barraza are required, authorized, and reviewed every 30 days.
[2024-06-30 10:35] LABS: POC Glucose,Bedside 308 (70-110)
--- NOTE | 2024-06-30 11:05 | EXP.DC.SUM ---
General Admission date:: 06/27/24 HPI HPI HPI: Ms. Barraza is a 78-year-old female with history of diabetes, hypothyroid, hypertension, aortic stenosis, HFpEF. She presented to the ER with increased cough and shortness of breath. States that she has been short of breath for past day or 2. No known sick contacts. No fever. Cough nonproductive. On initial workup, patient states she cannot catch her breath. Worse shortness of breath with exertion. Denies any swelling in her legs. Has had physique and general weakness for weeks to months. Saw her primary care recently and they did labs which were reassuring per her report. Within the past month was given a short course of diuretic due to lower extremity edema. Ankle swelling resolved and she has not been on diuretics regularly. Initial labs with normal white count of 6.2, found to be anemic with a hemoglobin of 7.8, baseline 10-11. Kidney function at baseline of BUN 18, creatinine 1.3. Electrolytes normal. BNP elevated at 709. Necessitating supplemental oxygen and maintain sats greater than 90%. Currently on 2 L. Presentation most consistent with CHF exacerbation. Medicine consulted for admission and management of CHF exacerbation. Initiated on diuretics with Lasix IV once in the ER. On arrival to the floor, patient is stable on 2 L oxygen. Responding to diuretics. Feeling a little better since admission. at bedside helps supplement history. She denies any nausea, vomiting, melena, hematochezia. Hospital Course Hospital Course Hospital Course: Yuki Barraza is a 78-year-old female with history of HFpEF presented with dyspnea and admitted for HFpEF exacerbation. Hospital course complicated by A-fib RVR. #Acute on chronic HFpEF #Aortic stenosis - Initial BNP 709 with lower extremity pitting edema. Now resolved. - Echo reviewed with EF of 60%. Stable VERNON of 1.1 cm?. Elevated RVSP at 35 mmHg ? Clinically improved with Lasix diuresis. Transition to oral Lasix 40 mg daily. ? Cardiology planning to refer to for further evaluation management of symptomatic aortic stenosis. - Continue irbesartan 150 mg daily for hypertension. #A-fib RVR, new onset ? Patient had new onset A-fib RVR with heart rate in the 120s to 130s. No signs of infection. On room air. ? Improved after starting diltiazem 240 mg and metoprolol tartrate 25 mg twice daily. ? Started Xarelto 20 mg nightly. ? Will follow-up with cardiology within 1 week. #Renal artery stenosis #Peripheral artery disease ? Following with cardiology. ? Patient states she gets nosebleeds with aspirin, wants to try Plavix instead. ? Plavix, pravastatin. #Normocytic anemia ? Hemoglobin around 9.0. MCV normal. Iron saturation 15%, ferritin 22, TIBC of 386. Iron level 58. Suspect secondary to chronic disease, CKD. ? Given IV Venofer. Discharged with ferrous sulfate 325 mg twice daily, MiraLAX. #EDU on CKD 3 ? Creatinine 1.8, baseline around 1.3. This is after diuresis. Will follow-up with cardiology for repeat BMP. #[id number]-FAIL-[id number]=17 - Most likely JOE; CT of abdomen obtained last July has concern for cirrhotic morphology of the liver with nodular contour and volume redistribution. - Needs outpatient referral to GI. Does not appear that she has seen GI since last visit. Continue Lasix, spironolactone as above. #Mild cognitive impairment - On memantine 10 mg twice a day and donepezil 10 mg daily at home. Appears to have poor understanding of her medical history and does not recall diagnoses previously discussed per documentation. Definitely impacts her overall health care and condition management. - Continue memantine 10 mg twice daily, Seroquel 200 mg night sleep, donepezil 10 mg daily - PT and OT did not recommend rehab needs. #Diabetes ?A1c 6.5, continue home regimen. #Hypothyroidism ? TSH 2.7, continue levothyroxine 88 mcg daily Total time spent on discharge: 32 minutes on chart review, counseling, documentation, and direct care with patient. Exam Data for Last 24 hours Vital signs and Labs for Last 24 Hours: Temp Pulse Resp BP Pulse Ox O2 Del Method O2 Flow Rate 97.6 F 78 16 114/55 L 96 Room Air 92 06/30/24 04:00 06/30/24 10:55 06/30/24 08:00 06/30/24 08:00 06/30/24 08:00 06/30/24 10:47 06/29/24 12:32 Laboratory Results - last 24 hr 06/29/24 11:10: POC Glucose 299 H 06/29/24 17:44: POC Glucose 219 H 06/29/24 20:47: POC Glucose 173 H 06/30/24 05:16: POC Glucose 241 H 06/30/24 05:17: WBC 7.7, RBC 3.56 L, Hgb 8.8 L, Hct 29.1 L, MCV 81.7, MCH 24.7 L, MCHC 30.2 L, RDW 18.1 H, Plt Count 307, MPV 9.8, Neut % (Auto) 67.2, Lymph % (Auto) 20.0, [place] % (Auto) 9.4 H, Eos % (Auto) 2.7, Baso % (Auto) 0.4, Neut # (Auto) 5.2, Lymph # (Auto) 1.6, [place] # (Auto) 0.7, Eos # (Auto) 0.2, Baso # (Auto) 0.0, Sodium 135 L, Potassium 3.8, Chloride 98, Carbon Dioxide 27, Anion Gap 13.8, BUN 33 H D, Creatinine 1.80 H, Estimated Creat Clear 33, Estimated GFR 27 L, Est GFR ( Amer) 33 L, Glucose 217 H, Calcium 8.9, Magnesium 2.0 D, Total Bilirubin 0.2, AST 33, ALT 19, Alkaline Phosphatase 86, Total Protein 7.4, Albumin 4.1 D, Globulin 3.3 H, Albumin/Globulin Ratio 1.2 06/30/24 10:28: POC Glucose 308 H* I & O for Last 24 hours: Intake & Output 06/28/24 06/28/24 06/29/24 06/30/24 00:59 23:59 23:59 23:59 Intake Total 120 / 120 700 / 950 1290 / 1530 480 / 480 Output Total 2700 / 2700 650 / 650 550 / 550 250 / 250 Balance -2580 / -2580 50 / 300 740 / 980 230 / 230 Weight 80.785 kg 78.97 kg 77.6 kg 77.9 kg Microbiology Reports for the Last 24 Hours: Microbiology 06/27/24 10:10 Blood Blood Culture - Preliminary NO GROWTH AFTER 48 HOURS 06/27/24 10:04 Blood Blood Culture - Preliminary NO GROWTH AFTER 48 HOURS Constitutional Constitutional: no acute distress *Routine HEENT Exam Head: Present normocephalic Eye: Present EOMI and PERRL ENT: Present mucous membranes moist *Routine Neck Exam Neck: Present supple; Absent lymphadenopathy *Routine Respiratory Exam Respiratory: Present CTA bilaterally *Routine Cardiovascular Exam Cardiovascular: Present irregularly irregular *Routine Abdominal Exam Abdominal: Present soft and normoactive bowel sounds; Absent tenderness *Routine Extremities Exam Extremities: Absent cyanosis, clubbing or edema *Routine Skin Exam Skin: Present warm; Absent rash *Routine Neurological Exam Neurological: Present alert and oriented X3 Results Data Completed and Pending Labs on day of discharge: Labs from last 24 hours 06/30/24 06/30/24 06/30/24 10:28 05:17 05:16 WBC 7.7 RBC 3.56 L Hgb 8.8 L Hct 29.1 L MCV 81.7 MCH 24.7 L MCHC 30.2 L RDW 18.1 H Plt Count 307 MPV 9.8 Neut % (Auto) 67.2 Lymph % (Auto) 20.0 [place] % (Auto) 9.4 H Eos % (Auto) 2.7 Baso % (Auto) 0.4 Neut # (Auto) 5.2 Lymph # (Auto) 1.6 [place] # (Auto) 0.7 Eos # (Auto) 0.2 Baso # (Auto) 0.0 Sodium 135 L Potassium 3.8 Chloride 98 Carbon Dioxide 27 Anion Gap 13.8 BUN 33 H D Creatinine 1.80 H Estimated Creat Clear 33 Estimated GFR 27 L Est GFR ( Amer) 33 L Glucose 217 H POC Glucose 308 H* 241 H Calcium 8.9 Magnesium 2.0 D Total Bilirubin 0.2 AST 33 ALT 19 Alkaline Phosphatase 86 Total Protein 7.4 Albumin 4.1 D Globulin 3.3 H Albumin/Globulin Ratio 1.2 06/29/24 06/29/24 06/29/24 20:47 17:44 11:10 WBC RBC Hgb Hct MCV MCH MCHC RDW Plt Count MPV Neut % (Auto) Lymph % (Auto) [place] % (Auto) Eos % (Auto) Baso % (Auto) Neut # (Auto) Lymph # (Auto) [place] # (Auto) Eos # (Auto) Baso # (Auto) Sodium Potassium Chloride Carbon Dioxide Anion Gap BUN Creatinine Estimated Creat Clear Estimated GFR Est GFR ( Amer) Glucose POC Glucose 173 H 219 H 299 H Calcium Magnesium Total Bilirubin AST ALT Alkaline Phosphatase Total Protein Albumin Globulin Albumin/Globulin Ratio Preliminary micro results at discharge 06/27/24 10:10 Blood Culture - Preliminary Blood NO GROWTH AFTER 48 HOURS 06/27/24 10:04 Blood Culture - Preliminary Blood NO GROWTH AFTER 48 HOURS DS: Diagnosis Discharge Diagnosis (1) Acute on chronic heart failure with preserved ejection fraction (HFpEF): Status: Acute Code(s): I50.33 - Acute on chronic diastolic (congestive) heart failure (2) Anemia: Status: Acute Code(s): D64.9 - Anemia, unspecified (3) Aortic stenosis: Status: Chronic Code(s): I35.0 - Nonrheumatic aortic (valve) stenosis Qualifiers: Cardiac valve disease etiology: etiology unspecified Qualified Code(s): I35.0 - Nonrheumatic aortic (valve) stenosis (4) Anxiety: Status: Chronic Code(s): F41.9 - Anxiety disorder, unspecified (5) Diabetes: Status: Chronic Code(s): E11.9 - Type 2 diabetes mellitus without complications Qualifiers: Diabetes mellitus type: type 2 Diabetes mellitus salvage determiner insulin use: without salvage determiner use Diabetes mellitus complication status: without complication Qualified Code(s): E11.9 - Type 2 diabetes mellitus without complications (6) Obesity (BMI 30.0-34.9): Status: Chronic Code(s): E66.811 - Obesity, class 1 (7) Hypothyroid: Status: Chronic Code(s): E03.9 - Hypothyroidism, unspecified Qualifiers: Hypothyroidism type: acquired Qualified Code(s): E03.9 - Hypothyroidism, unspecified Meds Home Medications and Allergies Home Medications ?Medication ?Instructions ?Recorded ?Confirmed ?Type memantine 10 mg tablet 10 mg PO BID 06/26/18 06/27/24 History pravastatin 80 mg tablet 80 mg PO HS Cholesterol 06/26/18 06/27/24 History donepezil 10 mg tablet 10 mg PO DAILY 01/23/23 06/27/24 History escitalopram oxalate 20 mg tablet 20 mg PO DAILY 01/23/23 06/27/24 History levothyroxine 88 mcg tablet 88 mcg PO DAILYDM 01/23/23 06/27/24 History sitagliptin phosphate 50 1 tab PO BIDWMEAL 01/23/23 06/27/24 History mg-metformin 1,000 mg tablet (Lars) quetiapine 200 mg tablet 200 - 400 mg PO HS 08/16/23 06/27/24 History famotidine 20 mg tablet 20 mg PO BID PRN Acid Reflux 30 08/19/23 06/27/24 Rx days #0 tabs pantoprazole 40 mg tablet,delayed 40 mg PO DAILY 30 days #30 tabs 08/19/23 06/27/24 Rx release spironolactone 25 mg tablet 25 mg PO DAILY 30 days #30 tabs 08/26/23 06/27/24 Rx calcium phosphate,dibasic 77 1 tab PO DAILY 06/27/24 06/27/24 History mg-vitamin D3 400 unit tablet cyanocobalamin (vitamin B-12) 50 50 mcg PO DAILY 06/27/24 06/27/24 History mcg tablet (Vitamin B-12) irbesartan 150 mg tablet 150 mg PO DAILY 06/27/24 06/27/24 History magnesium 100 mg tablet 100 mg PO BID 06/27/24 06/27/24 History melatonin 3 mg tablet 3 mg PO HS PRN Insomnia 06/27/24 06/27/24 History clopidogrel 75 mg tablet (Plavix) 75 mg PO DAILY #30 tabs 06/30/24 Rx diltiazem HCl 240 mg 240 mg PO DAILY 30 days #30 caps 06/30/24 Rx capsule,extended release 24 hr ferrous sulfate 325 mg (65 mg 325 mg PO BID #60 tabs 06/30/24 Rx iron) tablet,delayed release furosemide 40 mg tablet 40 mg PO DAILY 30 days #30 tabs 06/30/24 Rx metoprolol tartrate 25 mg tablet 25 mg PO BID 30 days #60 tabs 06/30/24 Rx polyethylene glycol 3350 17 17 g PO DAILY #510 grams 06/30/24 Rx gram/dose oral powder (Miralax) rivaroxaban 15 mg tablet (Xarelto) 15 mg PO QPMWITHMEAL 30 days #30 06/30/24 Rx tabs New Prescriptions to Start Prescriptions: clopidogrel [Plavix] Abhay Pendleton diltiazem HCl Helder,Abhay ferrous sulfate Helder,Abhay furosemide Helder,Abhay metoprolol tartrate Helder,Abhay polyethylene glycol 3350 [Miralax] Helder,Abhay rivaroxaban [Xarelto] Abhay Pendleton Allergies Allergy/AdvReac Type Severity Reaction Status Date / Time hydroxyzine (HYDROXYZINE) Allergy Unknown Unknown Verified 06/27/24 14:43 allergy reaction meperidine (From DEMEROL) Allergy Unknown Unknown Verified 06/27/24 14:43 allergy reaction rosuvastatin (From CRESTOR) Allergy Unknown Unknown Verified 06/27/24 14:43 allergy reaction Discharge Plan Disposition Patient Disposition: Home, Self-Care Condition: Fair Discharge Order Discharge Orders: Discharge Order (Routine); Ordered 06/30/24 Ordered By: Abhay Pendleton Follow up Plan Follow up with: Cara Esparza APRN [Nurse Practitioner] - 07/14/24 2:30 pm Sravan Anderson MD [Primary Care Provider] - 07/05/24 2:30 pm Campbell Simmons II, MD [Staff Physician] - Enter time for follow up (Suspected cirrhosis) Prescriptions/Medication Reconciliation: New furosemide 40 mg Tablet 40 mg PO DAILY 30 Days Qty: 30 0RF diltiazem HCl 240 mg Capsule,Extended Release 24hr 240 mg PO DAILY 30 Days Qty: 30 0RF metoprolol tartrate 25 mg Tablet 25 mg PO BID 30 Days Qty: 60 0RF Xarelto 15 mg Tablet 15 mg PO QPMWITHMEAL 30 Days Qty: 30 0RF ferrous sulfate 325 mg (65 mg iron) tablet,delayed release (DR/EC) 325 mg PO BID Qty: 60 0RF polyethylene glycol 3350 [Miralax] 17 gram/dose powder 17 g PO DAILY Qty: 510 0RF clopidogrel [Plavix] 75 mg tablet 75 mg PO DAILY Qty: 30 0RF Continued spironolactone 25 mg tablet 25 mg PO DAILY 30 Days Qty: 30 0RF pravastatin 80 MG tablet 80 mg PO HS memantine 10 MG tablet 10 mg PO BID quetiapine 200 mg tablet 200 - 400 mg PO HS Patient Comments: TAKE 1 TO 2 TABLETS BY MOUTH ONCE DAILY AT BEDTIME FOR 30 DAYS pantoprazole 40 mg Tablet,Delayed Release (Dr/Ec) 40 mg PO DAILY 30 Days Qty: 30 0RF famotidine 20 MG tablet 20 mg PO BID PRN (Reason: Acid Reflux) 30 Days Qty: 0 0RF donepezil 10 mg tablet 10 mg PO DAILY Patient Comments: TAKE 1 TABLET BY MOUTH ONCE DAILY WITH A MEAL levothyroxine 88 mcg tablet 88 mcg PO DAILYDM Patient Comments: TAKE 1 TABLET BY MOUTH ONCE DAILY escitalopram oxalate 20 mg tablet 20 mg PO DAILY Patient Comments: TAKE 1 TABLET BY MOUTH ONCE DAILY Janumet 50-1,000 mg tablet 1 tab PO BIDWMEAL Patient Comments: TAKE 1 TABLET BY MOUTH TWICE DAILY irbesartan 150 mg tablet 150 mg PO DAILY Rx Instructions: Take 1 tablet by mouth once daily melatonin 3 mg Tablet 3 mg PO HS PRN (Reason: Insomnia) Vitamin B-12 50 mcg Tablet 50 mcg PO DAILY magnesium 100 mg Tablet 100 mg PO BID calcium phos,dibas-vitamin D3 77-400 mg-unit Tablet 1 tab PO DAILY Discontinued amlodipine 10 mg Tablet 10 mg PO DAILY 30 Days Qty: 30 0RF nifedipine 60 mg tablet extended release 60 mg PO DAILY Patient Comments: TAKE 1 TABLET BY MOUTH ONCE DAILY Problem Reconciliation Problems Reviewed?: Yes Patient Discharge Instructions Patient Instructions: Anemia, DI for Heart Failure Print Language: Cuban Providers Primary Care Provider: Sravan Anderson Provider: Art Hu Attending Provider: Art Hu
--- NOTE | 2024-06-30 11:38 | EXP.CARD.PN ---
Subjective Subjective Date: 06/30/24 Time: 08:30 Principal diagnosis: HFpEF, aortic stenosis Interval history: Patient went back into [facility] R[facility] last night and was started on metoprolol tartrate 25 mg p.o. twice daily. She is rate controlled this morning in the 70s. Morning labs reviewed. Oxygen saturation 96% on room air. Exam Data for Last 24 hours Vital signs and Labs for Last 24 Hours: Temp Pulse Resp BP Pulse Ox O2 Del Method O2 Flow Rate 97.6 F 78 16 114/55 L 96 Room Air 92 06/30/24 04:00 06/30/24 10:55 06/30/24 08:00 06/30/24 08:00 06/30/24 08:00 06/30/24 10:47 06/29/24 12:32 Laboratory Results - last 24 hr 06/29/24 17:44: POC Glucose 219 H 06/29/24 20:47: POC Glucose 173 H 06/30/24 05:16: POC Glucose 241 H 06/30/24 05:17: WBC 7.7, RBC 3.56 L, Hgb 8.8 L, Hct 29.1 L, MCV 81.7, MCH 24.7 L, MCHC 30.2 L, RDW 18.1 H, Plt Count 307, MPV 9.8, Neut % (Auto) 67.2, Lymph % (Auto) 20.0, [place] % (Auto) 9.4 H, Eos % (Auto) 2.7, Baso % (Auto) 0.4, Neut # (Auto) 5.2, Lymph # (Auto) 1.6, [place] # (Auto) 0.7, Eos # (Auto) 0.2, Baso # (Auto) 0.0, Sodium 135 L, Potassium 3.8, Chloride 98, Carbon Dioxide 27, Anion Gap 13.8, BUN 33 H D, Creatinine 1.80 H, Estimated Creat Clear 33, Estimated GFR 27 L, Est GFR ( Amer) 33 L, Glucose 217 H, Calcium 8.9, Magnesium 2.0 D, Total Bilirubin 0.2, AST 33, ALT 19, Alkaline Phosphatase 86, Total Protein 7.4, Albumin 4.1 D, Globulin 3.3 H, Albumin/Globulin Ratio 1.2 06/30/24 10:28: POC Glucose 308 H* I & O for Last 24 hours: Intake & Output 06/28/24 06/28/24 06/29/24 06/30/24 00:59 23:59 23:59 23:59 Intake Total 120 / 120 700 / 950 1290 / 1530 480 / 480 Output Total 2700 / 2700 650 / 650 550 / 550 250 / 250 Balance -2580 / -2580 50 / 300 740 / 980 230 / 230 Weight 178 lb 1.6 oz 174 lb 1.6 oz 171 lb 1.259 oz 171 lb 11.841 oz Microbiology Reports for the Last 24 Hours: Microbiology 06/27/24 10:10 Blood Blood Culture - Preliminary NO GROWTH AFTER 48 HOURS 06/27/24 10:04 Blood Blood Culture - Preliminary NO GROWTH AFTER 48 HOURS Constitutional Constitutional: no acute distress *Routine Respiratory Exam Respiratory: Present CTA bilaterally and symmetric chest movement *Routine Cardiovascular Exam Cardiovascular: Present RRR, Normal S1 and Normal S2 *Routine Abdominal Exam Abdominal: Present soft and normoactive bowel sounds; Absent tenderness *Routine Extremities Exam Extremities: Present full ROM and normal capillary refill; Absent edema *Routine Skin Exam Skin: Present intact, dry and warm Detailed Neck Exam: Thyroids Thyroid: Absent bruit Progress Note: A&P Assessment and plan (1) Acute on chronic heart failure with preserved ejection fraction (HFpEF): Status: Acute (2) Anemia: Status: Acute (3) Aortic stenosis: Status: Chronic (4) Anxiety: Status: Chronic (5) Diabetes: Status: Chronic (6) Obesity (BMI 30.0-34.9): Status: Chronic (7) Hypothyroid: Status: Chronic Assessment and Plan Assessment and Plan for All Diagnoses:: Acute on chronic HFpEF History of moderate to severe aortic stenosis BNP on admission 709 Troponin negative CTA chest shows moderate pulmonary edema and moderate bilateral pleural effusions Echo shows a normal EF, moderate to severe , mild MS, AI, MR, and TR. RVSP is 35 Symptoms resolved Continue Lasix to 40 p.o. daily and Continue Aldactone 25 mg p.o. daily A-fib RVR Chadsvasc score >2 Status post ablation 12 to 15 years ago 250 normal saline bolus x 1 Continue diltiazem 240 mg ER p.o. daily Continue Metoprolol Tartrate 25mg po BID Start renal adjusted Xarelto 15 mg p.o. daily Chronic anemia Hemoglobin 9.4 with a baseline of 10-11 Defer to primary service Chronic kidney disease History of renal artery stenosis History of peripheral artery disease Angiogram for 2023 showed moderate bilateral renal artery stenosis with hemodynamically insignificant lesions. Widely patent iliofemoral arteries with single-vessel runoff on the right leg below the knee and two-vessel runoff on the left below the knee Recommend medical management with aspirin and statin Creatinine 1.3 on admission trending up to 1.8 Closely monitor in the setting of diuresis Hyperlipidemia LDL goal less than 55, continue statin CV summary 06/30/2024: Patient is CV stable for discharge home. Please have patient discharged home in a 2-week event monitor to further assess A-fib burden. Please continue below listed medications and have patient follow-up in cardiology clinic in 1 week for reevaluation. Will need repeat BMP at follow-up. Cardiac meds: Aspirin 81 mg p.o. daily Lasix 40 mg p.o. daily Irbesartan 150 mg p.o. daily Pravastatin 80 mg p.o. daily Aldactone 25 mg p.o. daily Diltizem 240mg p.o. daily xarelto 15mg p.o. daily Metoprolol 25 mg p.o. BID
--- NOTE | 2024-07-02 10:24 | SW/DCPLANNER ---
Phoned patient x2. Patients phone rings and then like someone picks up but wont say anything. 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
== END 2024-06-30 13:10 | disposition home or self-care (01) | DRG 291 ==
LOC: ER 10:14 → 2ND 13:31 → ICU 13:36 → 2ND 06-28 14:17
PROVIDERS: Student in an Organized Health Care Education/Training Program; Admitting Provider Internal Medicine Adolescent Medicine; Emergency Provider Emergency Medicine; PCP Internal Medicine Adolescent Medicine; Visit Provider Internal Medicine Adolescent Medicine
DX: I13.0 Hypertensive heart and chronic kidney disease with heart failure and stage 1 through stage 4 chronic kidney disease, or unspecified chronic kidney disease (principal); I50.33 Acute on chronic diastolic (congestive) heart failure; I35.0 Nonrheumatic aortic (valve) stenosis; I70.1 Atherosclerosis of renal artery; Z86.16 Personal history of COVID-19; E78.5 Hyperlipidemia, unspecified; Z82.49 Family history of ischemic heart disease and other diseases of the circulatory system; Z79.84 Long term (current) use of oral hypoglycemic drugs; Z79.899 Other long term (current) drug therapy; Z88.8 Allergy status to other drugs, medicaments and biological substances; E66.811 Obesity, class 1; Z68.29 Body mass index [BMI] 29.0-29.9, adult; E03.9 Hypothyroidism, unspecified; N18.31 Chronic kidney disease, stage 3a; E11.22 Type 2 diabetes mellitus with diabetic chronic kidney disease; Z66 Do not resuscitate; D63.1 Anemia in chronic kidney disease; K75.81 Nonalcoholic steatohepatitis (NASH); G31.84 Mild cognitive impairment of uncertain or unknown etiology; I73.9 Peripheral vascular disease, unspecified; Z79.82 Long term (current) use of aspirin
CPT/HCPCS: 36415; 71045; 71275; 74174; 80053; 81001; 82272; 82728; 82803; 82962; 83036; 83540; 83550; 83605; 83690; 83735; 83880; 84443; 84484; 85025; 86803; 86850; 87040; 87389; 87633; 87636; 93005; 93270; 93306; 94640; 94760; 94761; 97163; 97164; 97165; 99285; G0328; J1650; J1756; J1920; J1940; J3475; J7030; J7620; Q9967

== ENCOUNTER 2024-09-24 11:09 | Outpatient (CLI) | payer MEDICARE, BC, SELFPAY ==
--- OUTSIDE RECORDS SUMMARY | 2024-07-26 10:00 | XMS_ITS ---
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 Name Role Phone Sravan Anderson Primary Care Provider Allergies Allergen (clinical drug ingredient) Drug/Non Drug Allergy documented on EMR Reaction Allergy Type Onset Date Status DEMEROL HCL (uncoded) hypotension Allergy Active VISTARIL (uncoded) hypotension Allergy Active duloxetine Cymbalta a-fib Drug Allergy Active aspirin Aspirin nose bleeds Drug Allergy Activ e etodolac Lodine rash Drug Allergy Active rosuvastatin Crestor hives Drug Allergy Acti ve erythromycin Erythromycin Nausea Drug Allergy A ctive Results Component Value Reference Range Notes COMPREHENSIVE METABOLIC PANE L (38305) Reviewed date:07/28/2024 08:18:49 AM Interpretation: Performing Lab:[facility], [id number] [facility], [id number] Rodney Hammer Notes/Report: NON-FASTING; NON-FASTING; NON-FASTING GLUCOSE 179 65-99 mg/dL Fasting reference interval For someone without known diabetes, a glucose value >125 mg/dL indicates that they may have diabetes and this should be confirmed with a follow-up test. UREA NITROGEN (BUN) 35 7-25 mg/dL CREATININE 1.87 0.60-1.00 mg/dL EGFR 28 > OR = 60 mL/min/1.73m2 BUN/CREATININE RATIO 19 6-22 (calc) SODIUM 123 135-146 mmol/L POTASSIUM 4.7 3.5-5.3 mmol/L CHLORIDE 85 98-110 mmol/L Verified by re peat analysis. CARBON DIOXIDE 25 20-32 mmol/L CALCIUM 10.1 8.6-10.4 mg/dL PROTEIN, TOTAL 8.7 6.1-8.1 g/dL ALBUMIN 4.7 3.6-5.1 g/dL GLOBULIN 4.0 1.9-3.7 g/dL (calc) ALBUMIN/GLOBULIN RATIO 1.2 1.0-2.5 (calc) BILIRUBIN, TOTAL 0.3 0.2-1.2 mg/dL ALKALINE PHOSPHATASE 87 37-153 U/L AST 20 10-35 U/L ALT 17 6-29 U/L MAGNESIUM (622) Reviewed date:07/28/2024 08:18:49 AM Interpretation: Performing Lab:[facility] [place], [id number] Rodney Hammer Notes/Report: NON-FASTING; NON-FASTING; NON-FASTING MAGNESIUM 1.9 1.5-2.5 mg/dL CBC (INCLUDES DIFF/PLT) ([id number] 9) Reviewed date:07/28/2024 08:18:50 AM Interpretation: Performing Lab:[facility], [id number] Rodney Hammer Notes/Report: NON-FASTING; NON-FASTING; NON-FASTING WHITE BLOOD CELL COUNT 6.4 3.8-10.8 Thousand/ uL RED BLOOD CELL COUNT 3.87 3.80-5.10 Million/uL HEMOGLOBIN 9.8 11.7-15.5 g/dL HEMATOCRIT 31.3 35.0-45.0 % MCV 80.9 80.0-100.0 fL MCH 25.3 27.0-33.0 pg MCHC 31.3 32.0-36.0 g/dL For adults, a slight decrease in the calculated MCHC value (in the range of 30 to 32 g/dL) is most likely not clinically significant; however, it should be interpreted with caution in correlation with other red cell parameters and the patient's clinical condition. RDW 17.4 11.0-15.0 % PLATELET COUNT 361 140-400 Thousand/uL MPV 9.8 7.5-12.5 fL ABSOLUTE NEUTROPHILS 4646 3589-8407 cells/uL ABSOLUTE LYMPHOCYTES 1827 959-6665 cells/uL ABSOLUTE MONOCYTES 550 200-950 cells/uL ABSOLUTE EOSINOPHILS 90 15-500 cells/uL ABSOLUTE BASOPHILS 32 0-200 cells/uL NEUTROPHILS 72.6 LYMPHOCYTES 16.9 MONOCYTES 8.6 EOSINOPHILS 1.4 BASOPHILS 0.5 REASON FOR VISIT 2 week follow up Medications Medication SIG (Take, Route, Frequency, Duration) Notes Start Date End Date Status Famotidine 20 MG 1 tab(s) orally 2 times a day for 90 days Active Escitalopram Oxalate 20 MG 1 tab(s) orally once a day for 90 days Active Janumet 50-1000 MG Take 1 tablet by mouth twice daily for 90 days Active Levothyroxine Sodium 88 MCG 1 tab(s) orally once a day for 90 days Active QUEtiapine Fumarate 200 MG 1-2 tab(s) orally once a day at night for 30 days Active Pravastatin Sodium 80 MG 1 tab(s) orally once a day (at bedtime) for 90 days Active Donepezil HCl 10 MG 1 tab(s) orally once a day with a meal for 90 days Active Pantoprazole Sodium 40 MG 1 tab(s) orally once a day for 90 days Active Spironolactone 25 MG 1 tab(s) orally once a day for 90 days Active Memantine HCl 10 MG 1 tab(s) orally 2 times a day for 90 days Active Vitamin B-12 50 MCG 1 tab(s) orally once a day Active Vitamin D3 25 MCG 1 cap(s) orally once a week Active Magnesium 400MG 1 TABLET BY MOUTH 2 TIMES A DAY 100mg *Please review and pick correct strength-formulati on from [employer] options. If intended option is not shown, discontinue and re-order from Quick Search* Active Lasix 40 MG 1 tablet Orally Once a day Active Clopidogrel Bisulfate 75 MG 1 tab(s) orally once a day Active dilTIAZem HCl 240 MG/24 HOURS 1 CAP(S) ORALLY ONCE A DAY *Please review and pick correct strength-formulati on from [employer] options. If intended option is not shown, discontinue and re-order from Quick Search* Active Vital Signs Temperature 97.6 degrees Fahrenheit 07/27/19 25 Heart Rate 80 /min 07/26/2024 Blood pressure systolic 140 mm Hg 07/27/19 25 Blood pressure diastolic 58 mm Hg 04/07/2 025 Height 61 in 07/26/2024 Weight 176 lbs 07/26/2024 BMI 33.25 kg/m2 07/26/2024 Encounters Encounter Location Date Provider Diagnosis [facility] [address] [place] [address] 07/26/2024 Sravan Abdelrahmanlillian Hypomagnesemia E83.4 2 ; Aortic stenosis, moderate I35.0 and CHF NYHA class II, chronic, diastolic I50.32 Assessments Encounter Date Diagnosis (ICD Code) Assessment Notes Treatment Notes Treatment Clinical Notes Section Notes 07/26/2024 Hypomagnesemia (ICD-10 - E83.42) Will check serum magnesium levels today due to loop diuretic use and muscle cramping. 07/26/2024 Aortic stenosis, moderate (ICD-10 - I35.0) Following with [facility] cardiology / CT surgery to determine eligibilty for TVAR procedure to correct aortic stenosis. 07/26/2024 CHF NYHA class II, chronic, diastolic (ICD-10 - I50.32) Continue Lasix therapy, goal is twice daily as tolerated. Will obtain labs today to assess for electrolyte abnormalities and kidney function with Lasix use. Plan Of Treatment Treatment Notes Assessment Notes Hypomagnesemia Will check serum mag nesium levels today due to loop diuretic use and muscle cramping. Aortic stenosis, moderate Following with [facility] cardiology / CT surgery to determine eligibilty for TVAR procedure to correct aortic stenosis. CHF NYHA class II, chronic, diastolic Co ntinue Lasix therapy, goal is twice daily as tolerated. Will obtain labs today to assess for electrolyte abnormalities and kidney function with Lasix use. Next Appt Details Follow Up: prn, Reason: Progress Notes * Yuki AZUL ADOB:1945 (78 yo F)Acc No.[id number]:07/26/2024 Progress Notes Patient: Yuki WADE Provider: Sariah Anderson MD :1945 A ge:78 Y S ex:Female Date:07/26/2024 Address:[address] [place], [place] [id number] Subjective: * Chief Complaints: * 1 . 2 week follow up. * HPI: g en: Mrs. Azul is here for a two week follow-up following [facility] exaserbation. S he today that she went to see CT surgery at [facility] where they reintiated Lasix therapy due to pulmonary edema. So far she is tolerating the Lasix well other than significant weakness and some muscle cramping in her arms and legs. T carol additionally dc'd xarelto. She will have going back for an Echo on the to decide on TVAR procerdure. S he reports that her breathing is much better now that she is taking Lasix again. Denies any confusion, chest pain or palpitations. * Medical History: H ypertension, Hypothyroidism, Hormone replacement therapy, Esophageal reflux, Hypercholestrolemia, type II diabetes, Fibromyalgia, Asthma, Urinary retention, A fib, Back surgery x4, colonoscopy and EGD January [id number] polyps - colonoscopy in 07/07 with isolated tubular adenoma polyp and mild diverticulitis, Normal DEXA on 04/06 - Repeated with mild osteopenia, breast mass with negative stereotactic biopsy in May 2017 - normal mammogram 06/10, Covid 19, Heart Failure 2024. * Surgical History: c holecystectomy , Hysterectomy , rotator cuff tear repair bilateral , carpal tunnel release rt wrist , rt Knee-meniscus repair , Incisional Hernia repair , appendectomy , left knee replacement , pulmonary vein ablation , spur removal -lower back , spinal fusion-low back , breast needle bx-rt breast benign , Back surgery x 2 2013, Interstin iCon implant 2016, Medtronic stimulator removed 09/2017, Colonoscopy 06/2018, cataract surgery-bilateral eyes 01/2019. * Hospitalization/Major Diagno stic Procedure: G I bleed , Heart-afib , CVA 1992, all above surgeries , [facility]-subdural hematoma 07/2016, [facility] 08/2016, kidney infection 02/2020, Covid 04/2021, Dehydration 06/2021, [facility] 01/2023, [facility] 07/2023, [facility]- Heart Failure 07/13. * Family History: F ather: , heart disease. M other: , heart disease. P aternal Grand Father: . P aternal Grand Mother: , diabetes. M aternal Grand Father: . M aternal Grand Mother: . P aternal uncle: . P aternal aunt: .?Maternal uncle: . M aternal aunt: . S iblings: alive, 1 brother cancer brother , emphysema 1 sister with down syndrome, 1 brother- cancer. C meagan: alive. 3 brother(s) , 2 sister(s) . 1 son(s) , 1 daughter(s) - healthy. . * Social History: S moking: no A re you a:: nonsmoker. R ecreational drug use: no. Exercise: yes. Home smoke detector use: no. Caffeine: yes, frequency:2 cups coffee per day. Living Will: No. Alcohol: no. Sexually active: yes. Travel outside [place]: no. Occupation: retired. * Medications: T aking Lasix 40 MG Tablet 1 tablet Orally Once a day , Taking Clopidogrel Bisulfate 75 MG Tablet 1 tab(s) orally once a day , Taking dilTIAZem HCl 240 MG/24 HOURS CAPSULE, EXTENDED RELEASE 1 CAP(S) ORALLY ONCE A DAY , Notes to Pharmacist: *Please review and pick correct strength-formulation from [employer] options. If intended option is not shown, discontinue and re-order from Quick Search*, Taking Magnesium 400MG 1 TABLET BY MOUTH 2 TIMES A DAY , Notes to Pharmacist: 100mg *Please review and pick correct strength-formulation from [employer] options. If intended option is not shown, discontinue and re-order from Quick Search*, Taking Vitamin B-12 50 MCG Tablet 1 tab(s) orally once a day , Taking Vitamin D3 25 MCG Capsule 1 cap(s) orally once a week , Taking Pravastatin Sodium 80 MG Tablet 1 tab(s) orally once a day (at bedtime) , Taking Donepezil HCl 10 MG Tablet 1 tab(s) orally once a day with a meal , Taking Pantoprazole Sodium 40 MG Tablet Delayed Release 1 tab(s) orally once a day , Taking Spironolactone 25 MG Tablet 1 tab(s) orally once a day , Taking Memantine HCl 10 MG Tablet 1 tab(s) orally 2 times a day , Taking Famotidine 20 MG Tablet 1 tab(s) orally 2 times a day , Taking Escitalopram Oxalate 20 MG Tablet 1 tab(s) orally once a day , Taking Janumet 50-1000 MG Tablet Take 1 tablet by mouth twice daily , Taking Levothyroxine Sodium 88 MCG Tablet 1 tab(s) orally once a day , Taking QUEtiapine Fumarate 200 MG Tablet 1-2 tab(s) orally once a day at night , Discontinued Ferrous Sulfate 325 (65 Fe) MG Tablet 1 tab(s) orally morning and night , Discontinued Polyethylene Glycol 3350 - Powder as directed orally once a day , Discontinued Rivaroxaban 15 MG Tablet 1 tab(s) orally once a day (in the evening) , Discontinued Melatonin 3 MG Tablet 1 tab(s) orally once a day (at bedtime) , Discontinued CALCIUM PHOSPHATE DIBASIC ANHYDROUS, 500 G CALCIUM PHOSPHATE, DIBASIC 77MG , Notes to Pharmacist: *Please review for potential replacement for e-prescription and drug interaction check*, Discontinued Cholecalciferol 10 MCG CAPSULE 1 CAP(S) ORALLY ONCE A DAY , Notes to Pharmacist: *Please review and pick correct strength- formulation from [employer] options. If intended option is not shown, discontinue and re-order from Quick Search*, Discontinued Irbesartan 150 MG Tablet 1 tab(s) orally once a day , Medication List reviewed and reconciled with the patient * Allergies: C restor: hives, DEMEROL HCL: hypotension, VISTARIL: hypotension, Erythromycin: Nausea, Lodine: rash, Cymbalta: a-fib, Aspirin: nose bleeds. Objective: * Vitals: N urse: be, Pain: 4, Temp: 97.6, RR: 18, HR: 80, BP: 140/58, Ht: 61, Wt: 176, BMI:33.25. * Examination: G eneral Examination: General P leasant and Cooperative, NAD on RA,. Chest: n ormal shape and expansion. Heart: s ystolic ejection murmur at left sternal border, RRR, no edema. Lungs: c lear to auscultation,, no wheezes or crackles,.? Neurologic Exam: n o focal signs,, Alert and oriented x 3.? Skin: n ormal, no rash,. Extremities: n o edema bilaterally. neck N o JVD,, supple,. Psych N ormal Mood/Affect. Assessment: * Assessment: 1. H ypomagnesemia - E83.42 (Primary) 2 . A ortic stenosis, moderate - I35.0 3 . C HF NYHA class II, chronic, diastolic - I50.32 Plan: * Treatment: Value Reference Range G LUCOSE 179 H 65-99 - mg/dL * U AMBROSE NITROGEN (BUN) 35 H 7-25 - mg/dL * C REATININE 1.87 H 0.60-1.00 - mg/dL * B UN/CREATININE RATIO 19 6-22 - (calc) * S ODIUM 123 L 135-146 - mmol/L * P OTASSIUM 4.7 3.5-5.3 - mmol/L * C HLORIDE 85 L 98-110 - mmol/L * C ARBON DIOXIDE 25 20-32 - mmol/L * C ALCIUM 10.1 8.6-10.4 - mg/dL * P ROTEIN, TOTAL 8.7 H 6.1-8.1 - g/dL * A LBUMIN 4.7 3.6-5.1 - g/dL * G LOBULIN 4.0 H 1.9-3.7 - g/dL (calc ) * A LBUMIN/GLOBULIN RATIO 1.2 1.0-2.5 - (calc) * B ILIRUBIN, TOTAL 0.3 0.2-1.2 - mg/dL * A LKALINE PHOSPHATASE 87 37-153 - U/L * A ST 20 10-35 - U/L * A LT 17 6-29 - U/L * E GFR 28 L > OR = 60 - mL/min/1 .73m2 * Lizy Braxton 07/28/2024 08: 15:53 AM EDT > pt informedThis lab was reviewed by Lizy Braxton on 07/28/2024 at 08:18 AM EDT ?LAB: MAGNESIUM (622)* Value Reference Range M AGNESIUM 1.9 1.5-2.5 - mg/dL * Lizy Braxton 07/28/2024 08: 15:53 AM EDT > pt informedThis lab was reviewed by Lizy Braxton on 07/28/2024 at 08:18 AM EDT ?LAB: CBC (INCLUDES DIFF/PLT) (7264)* Value Reference Range W FARTUN BLOOD CELL COUNT 6.4 3.8-10.8 - Thousan d/uL * R ED BLOOD CELL COUNT 3.87 3.80-5.10 - Million/ uL * H EMOGLOBIN 9.8 L 11.7-15.5 - g/dL * H EMATOCRIT 31.3 L 35.0-45.0 - % * M CV 80.9 80.0-100.0 - fL * M CH 25.3 L 27.0-33.0 - pg * M CHC 31.3 L 32.0-36.0 - g/dL * R DW 17.4 H 11.0-15.0 - % * P LATELET COUNT 361 140-400 - Thousand/u L * N EUTROPHILS 72.6 - % * A BSOLUTE NEUTROPHILS 4646 4414-4523 - cells/uL * L YMPHOCYTES 16.9 - % * A BSOLUTE LYMPHOCYTES 7821 928-3340 - cells/uL * M ONOCYTES 8.6 - % * A BSOLUTE MONOCYTES 550 200-950 - cells/uL * E OSINOPHILS 1.4 - % * A BSOLUTE EOSINOPHILS 90 15-500 - cells/uL * B ASOPHILS 0.5 - % * A BSOLUTE BASOPHILS 32 0-200 - cells/uL * M PV 9.8 7.5-12.5 - fL * Lizy Braxton 07/28/2024 08: 15:53 AM EDT > pt informedThis lab was reviewed by Lizy Braxton on 07/28/2024 at 08:18 AM EDT Notes: Will check serum magnesium levels today due to loop diuretic use and muscle cramping.? 2.?Aortic stenosis, moderate?LAB: COMPREHENSIVE METABOLIC PANEL (76836)* Value Reference Range G LUCOSE 179 H 65-99 - mg/dL * U AMBROSE NITROGEN (BUN) 35 H 7-25 - mg/dL * C REATININE 1.87 H 0.60-1.00 - mg/dL * B UN/CREATININE RATIO 19 6-22 - (calc) * S ODIUM 123 L 135-146 - mmol/L * P OTASSIUM 4.7 3.5-5.3 - mmol/L * C HLORIDE 85 L 98-110 - mmol/L * C ARBON DIOXIDE 25 20-32 - mmol/L * C ALCIUM 10.1 8.6-10.4 - mg/dL * P ROTEIN, TOTAL 8.7 H 6.1-8.1 - g/dL * A LBUMIN 4.7 3.6-5.1 - g/dL * G LOBULIN 4.0 H 1.9-3.7 - g/dL (calc ) * A LBUMIN/GLOBULIN RATIO 1.2 1.0-2.5 - (calc) * B ILIRUBIN, TOTAL 0.3 0.2-1.2 - mg/dL * A LKALINE PHOSPHATASE 87 37-153 - U/L * A ST 20 10-35 - U/L * A LT 17 6-29 - U/L * E GFR 28 L > OR = 60 - mL/min/1 .73m2 * Lizy Braxton 07/28/2024 08: 15:53 AM EDT > pt informedThis lab was reviewed by Lizy Braxton on 07/28/2024 at 08:18 AM EDT ?LAB: MAGNESIUM (622)* Value Reference Range M AGNESIUM 1.9 1.5-2.5 - mg/dL * Lizy Braxton 07/28/2024 08: 15:53 AM EDT > pt informedThis lab was reviewed by Lizy Braxton on 07/28/2024 at 08:18 AM EDT ?LAB: CBC (INCLUDES DIFF/PLT) (1148)* Value Reference Range W FARTUN BLOOD CELL COUNT 6.4 3.8-10.8 - Thousan d/uL * R ED BLOOD CELL COUNT 3.87 3.80-5.10 - Million/ uL * H EMOGLOBIN 9.8 L 11.7-15.5 - g/dL * H EMATOCRIT 31.3 L 35.0-45.0 - % * M CV 80.9 80.0-100.0 - fL * M CH 25.3 L 27.0-33.0 - pg * M CHC 31.3 L 32.0-36.0 - g/dL * R DW 17.4 H 11.0-15.0 - % * P LATELET COUNT 361 140-400 - Thousand/u L * N EUTROPHILS 72.6 - % * A BSOLUTE NEUTROPHILS 4646 5259-5032 - cells/uL * L YMPHOCYTES 16.9 - % * A BSOLUTE LYMPHOCYTES 6330 901-3205 - cells/uL * M ONOCYTES 8.6 - % * A BSOLUTE MONOCYTES 550 200-950 - cells/uL * E OSINOPHILS 1.4 - % * A BSOLUTE EOSINOPHILS 90 15-500 - cells/uL * B ASOPHILS 0.5 - % * A BSOLUTE BASOPHILS 32 0-200 - cells/uL * M PV 9.8 7.5-12.5 - fL * Lizy Braxton 07/28/2024 08: 15:53 AM EDT > pt informedThis lab was reviewed by Lizy Braxton on 07/28/2024 at 08:18 AM EDT Notes: Following with [facility] cardiology / CT surgery to determine eligibilty for TVAR procedure to correct aortic stenosis. ??3.?CHF NYHA class II, chronic, diastolic?LAB: COMPREHENSIVE METABOLIC PANEL (13563)* Value Reference Range G LUCOSE 179 H 65-99 - mg/dL * U AMBROSE NITROGEN (BUN) 35 H 7-25 - mg/dL * C REATININE 1.87 H 0.60-1.00 - mg/dL * B UN/CREATININE RATIO 19 6-22 - (calc) * S ODIUM 123 L 135-146 - mmol/L * P OTASSIUM 4.7 3.5-5.3 - mmol/L * C HLORIDE 85 L 98-110 - mmol/L * C ARBON DIOXIDE 25 20-32 - mmol/L * C ALCIUM 10.1 8.6-10.4 - mg/dL * P ROTEIN, TOTAL 8.7 H 6.1-8.1 - g/dL * A LBUMIN 4.7 3.6-5.1 - g/dL * G LOBULIN 4.0 H 1.9-3.7 - g/dL (calc ) * A LBUMIN/GLOBULIN RATIO 1.2 1.0-2.5 - (calc) * B ILIRUBIN, TOTAL 0.3 0.2-1.2 - mg/dL * A LKALINE PHOSPHATASE 87 37-153 - U/L * A ST 20 10-35 - U/L * A LT 17 6-29 - U/L * E GFR 28 L > OR = 60 - mL/min/1 .73m2 * Lizy Braxton 07/28/2024 08: 15:53 AM EDT > pt informedThis lab was reviewed by Lizy Braxton on 07/28/2024 at 08:18 AM EDT ?LAB: MAGNESIUM (622)* Value Reference Range M AGNESIUM 1.9 1.5-2.5 - mg/dL * Lizy Braxton 07/28/2024 08: 15:53 AM EDT > pt informedThis lab was reviewed by Lizy Braxton on 07/28/2024 at 08:18 AM EDT ?LAB: CBC (INCLUDES DIFF/PLT) (3971)* Value Reference Range W FARTUN BLOOD CELL COUNT 6.4 3.8-10.8 - Thousan d/uL * R ED BLOOD CELL COUNT 3.87 3.80-5.10 - Million/ uL * H EMOGLOBIN 9.8 L 11.7-15.5 - g/dL * H EMATOCRIT 31.3 L 35.0-45.0 - % * M CV 80.9 80.0-100.0 - fL * M CH 25.3 L 27.0-33.0 - pg * M CHC 31.3 L 32.0-36.0 - g/dL * R DW 17.4 H 11.0-15.0 - % * P LATELET COUNT 361 140-400 - Thousand/u L * N EUTROPHILS 72.6 - % * A BSOLUTE NEUTROPHILS 4646 8064-7706 - cells/uL * L YMPHOCYTES 16.9 - % * A BSOLUTE LYMPHOCYTES 5921 437-7379 - cells/uL * M ONOCYTES 8.6 - % * A BSOLUTE MONOCYTES 550 200-950 - cells/uL * E OSINOPHILS 1.4 - % * A BSOLUTE EOSINOPHILS 90 15-500 - cells/uL * B ASOPHILS 0.5 - % * A BSOLUTE BASOPHILS 32 0-200 - cells/uL * M PV 9.8 7.5-12.5 - fL * Lizy Braxton 07/28/2024 08: 15:53 AM EDT > pt informedThis lab was reviewed by Lizy Braxton on 07/28/2024 at 08:18 AM EDT Notes: Continue Lasix therapy, goal is twice daily as tolerated. Will obtain labs today to assess for electrolyte abnormalities and kidney function with Lasix use. ?? * Follow Up: p rn * * Sign off status: Completed true * Provider: Sariah Anderson MD Date: 0 07/26/2024 Generated for Printi ng/Faxing/eTransmitting on: 0 09/24/2024 11:13 AM EDT History and Physical Notes * Examination Category Sub-Category Detail Notes Category Not es General Examination Heart: systolic eje ction murmur at left sternal border, RRR, no edema Lungs: clear to auscultatio n,, no wheezes or crackles, Extremities: no edema bilaterally Skin: normal, no rash, Neurologic Exam: no focal signs,, Zayra rt and oriented x 3 Chest: normal shape and exp ansion neck No JVD,, supple, General Pleasant and Coopera tive, NAD on RA, Psych Normal Mood/Affect
--- OUTSIDE RECORDS SUMMARY | 2024-08-16 11:00 | XMS_ITS ---
Author Organization [facility] Address [address] [place] [address] Care Team Providers Care Net Fisher Name Role Phone Sravan Anderson Primary Care Provider REASON FOR VISIT 3 Week F/U Encounters Encounter Location Date Provider Diagnosis [facility] [address] [place] [address] 08/16/2024 Sravan Anderson Plan Of Treatment No Information Progress Notes * Yuki AZUL ADOB:1945 (78 yo F)Acc No.[id number]:08/16/2024 Progress Notes Patient: Yuki WADE Provider: Sariah Anderson MD :1945 A ge:78 Y S ex:Female Date:08/16/2024 Address:[id number] Subjective: * Chief Complaints: * 1 . 3 Week F/U. * Medical History: Objective: * Vitals: Assessment: Plan: * Treatment: * * Electronic signature of Tony Anderson MD FAAP on 09/24/2024 at 11:13 AM EDT Sign off status: Pending * Provider: Sariah Anderson MD Date: 08/16/2024 Generated for Printi ng/Faxing/eTransmitting on: 0 09/24/2024 11:13 AM EDT
--- OUTSIDE RECORDS SUMMARY | 2024-09-22 10:00 | XMS_ITS ---
Author Organization [facility] D [facility] Address [address] [place] [address] Care Team Providers Care Needle Grinder Name Role Phone Sravan Anderson Primary Care [...] Reference Range Notes COMPREHENSIVE METABOLIC PANE L (34076) Reviewed date:09/23/2024 02:20:49 PM Interpretation: Performing Lab:CB, [facility] [place] Sctz[address] [facility], [facility]ywRK[address] Rodney Hammer Notes/Report: NON-FASTING; NON-FASTING; NON-FASTING; NON-FASTING GLUCOSE 120 65-99 mg/dL Fasting reference interval For someone without known diabetes, a glucose value between 100 and 125 mg/dL is consistent with prediabetes and should be confirmed with a follow-up test. UREA NITROGEN (BUN) 27 7-25 mg/dL CREATININE 1.70 0.60-1.00 mg/dL EGFR 31 > OR = 60 mL/min/1.73m2 BUN/CREATININE RATIO 16 6-22 (calc) SODIUM 130 135-146 mmol/L POTASSIUM 4.9 3.5-5.3 mmol/L CHLORIDE 96 98-110 mmol/L CARBON DIOXIDE 23 20-32 mmol/L CALCIUM 9.1 8.6-10.4 mg/dL PROTEIN, TOTAL 6.9 6.1-8.1 g/dL ALBUMIN 4.1 3.6-5.1 g/dL GLOBULIN 2.8 1.9-3.7 g/dL (calc) ALBUMIN/GLOBULIN RATIO 1.5 1.0-2.5 (calc) BILIRUBIN, TOTAL 0.3 0.2-1.2 mg/dL ALKALINE PHOSPHATASE 62 37-153 U/L AST 14 10-35 U/L ALT 8 6-29 U/L CBC (INCLUDES DIFF/PLT) ([id number]) Reviewed date:09/23/2024 02:20:50 PM Interpretation: Performing Lab:[facility], [facility] HospitalNzshAH[address] Rodney Hammer Notes/Report: NON-FASTING; NON-FASTING; NON-FASTING; NON-FASTING WHITE BLOOD CELL COUNT 6.1 3.8-10.8 Thousand/ uL RED BLOOD CELL COUNT 2.95 3.80-5.10 Million/uL HEMOGLOBIN 7.2 11.7-15.5 g/dL HEMATOCRIT 24.4 35.0-45.0 % MCV 82.7 80.0-100.0 fL MCH 24.4 27.0-33.0 pg MCHC 29.5 32.0-36.0 g/dL For adults, a slight decrease in the calculated MCHC value (in the range of 30 to 32 g/dL) is most likely not clinically significant; however, it should be interpreted with caution in correlation with other red cell parameters and the patient's clinical condition. RDW 16.8 11.0-15.0 % PLATELET COUNT 225 140-400 Thousand/uL MPV 9.4 7.5-12.5 fL ABSOLUTE NEUTROPHILS 4557 6814-2771 cells/uL ABSOLUTE LYMPHOCYTES 710 066-2154 cells/uL ABSOLUTE MONOCYTES 482 200-950 cells/uL ABSOLUTE EOSINOPHILS 104 15-500 cells/uL ABSOLUTE BASOPHILS 31 0-200 cells/uL NEUTROPHILS 74.7 LYMPHOCYTES 15.2 MONOCYTES 7.9 EOSINOPHILS 1.7 BASOPHILS 0.5 VITAMIN B12/FOLATE, SERUM PA THAIS ([id number]) Reviewed date:09/23/2024 02:20:50 PM Interpretation: Performing Lab:RENE, [facility] Cews[address] [facility], [facility] HospitalRyhjAS[address] Rodney Hammer Notes/Report: NON-FASTING; NON-FASTING; NON-FASTING; NON-FASTING VITAMIN B12 >2000 200-1100 pg/mL FOLATE, SERUM 10.7 Reference Range Low: <3.4 Borderline: 3.4-5.4 Normal: >5.4 FERRITIN (457) Reviewed date:09/23/2024 02:20:50 PM Interpretation: Performing Lab:[facility], [facility], [facility] HospitalLqzpMZ[address] Rodney Hammer Notes/Report: NON-FASTING; NON-FASTING; NON-FASTING; NON-FASTING FERRITIN 13 16-288 ng/mL REASON FOR VISIT 3 month follow up- trouble breathing and weak Medications Medication SIG (Take, Route, Frequency, Duration) Notes Start Date End Date Status QUEtiapine Fumarate 200 MG TAKE 1 TO 2 TABLETS BY MOUTH ONCE DAILY AT BEDTIME for 30 Active Pravastatin Sodium 80 MG TAKE 1 TABLET BY MOUTH ONCE DAILY AT BEDTIME for 90 Active amLODIPine Besylate 5 MG 1 tablet Orally Once a day Active Apixaban 5 MG as directed Orally Active Levothyroxine Sodium 88 MCG 1 tab(s) orally once a day for 90 days Active Clopidogrel Bisulfate 75 MG 1 tab(s) orally once a day for 90 days Active Lasix 40 MG 1 tablet Orally Once a day for 90 days Active Janumet 50-1000 MG Take 1 tablet by mouth twice daily for 90 days Active Vitamin D3 25 MCG 1 cap(s) orally once a week Active Vitamin B-12 50 MCG 1 tab(s) orally once a day Active Pantoprazole Sodium 40 MG 1 tab(s) orally once a day for 90 days Active Donepezil HCl 10 MG 1 tab(s) orally once a day with a meal for 90 days Active Memantine HCl 10 MG 1 tab(s) orally 2 times a day for 90 days Active Carvedilol 25 MG 1 tablet with food Orally Twice a day Active Eliquis 5 MG as directed Orally Active Magnesium 400MG 1 TABLET BY MOUTH 2 TIMES A DAY 100mg *Please review and pick correct strength-formulatio n from Medispan options. If intended option is not shown, discontinue and re-order from Quick Search* Active Problems Problem Type SNOMED Code ICD Code Onset Dates Problem Status W/U Status Risk Notes Problem 889189262 Chronic anemia (D64.9) Active confirmed Problem 398227043 Moderate aortic stenosis (I35.0) Active confirmed Vital Signs Temperature 97.5 degrees Fahrenheit 09/23/19 25 Heart Rate 80 /min 09/22/2024 Blood pressure systolic 126 mm Hg 09/23/19 25 Blood pressure diastolic 64 mm Hg 025 Height 61 in 09/22/2024 Weight 189 lbs 09/22/2024 BMI 35.71 kg/m2 09/22/2024 Encounters Encounter Location Date Provider Diagnosis [facility] [address] [place], [place] [address] 09/22/2024 Sravan Anedrson Chronic anemia D64.9 ; Hyponatremia E87.1 ; Essential hypertension I10 ; CHF NYHA class II, chronic, diastolic I50.32 and Moderate aortic stenosis I35.0 Assessments Encounter Date Diagnosis (ICD Code) Assessment Notes Treatment Notes Treatment Clinical Notes Section Notes 09/22/2024 Chronic anemia (ICD-10 - D64.9) Obtain labs today Patient may need transfusion tomorrow 09/22/2024 Hyponatremia (ICD-10 - E87.1) Obtain labs today Stop Lexapro and Pepcid which may deplete sodium 09/22/2024 Essential hypertension (ICD-10 - I10) Well controlled today Continue current regimen 09/22/2024 CHF NYHA class II, chronic, diastolic (ICD-10 - I50.32) Patient follows with cardiology at [facility] 09/22/2024 Moderate aortic stenosis (ICD-10 - I35.0) Following with [facility], TAVR once hemoglobin and sodium are stable. Plan Of Treatment Medication Medication Name Sig Start Date Stop Date Notes Famotidine 20 MG 1 tab(s) orally 2 times a day Escitalopram Oxalate 20 MG 1 tab(s) orally once a day Treatment Notes Assessment Notes Chronic anemia Obtain labs today Patient may need transfusion tomorrow Hyponatremia Obtain labs today Stop Lexapro and Pepcid which may deplete sodium Essential hypertension Well controlled today Continue current regimen CHF NYHA class II, chronic, diastolic Pa tient follows with cardiology at [facility] Moderate aortic stenosis Following with [facility], TAVR once hemoglobin and sodium are stable. Next Appt Details Follow Up: prn, Reason: Progress Notes * Yuki AZUL ADOB:1945 (78 yo F)Acc No.[id number]:09/22/2024 Progress Notes Patient: Yuki WADE Provider: Sariah Anderson MD :1945 A ge:78 Y S ex:Female Date:09/22/2024 Address:[place], [id number] Subjective: * Chief Complaints: * 1 . 3 month follow up- trouble breathing and weak. * HPI: g en: Ms. Azul is a 78 year old female presenting to the clinic for 3 month follow- up, difficulty breathing and weakness. She had a heart cath done on Friday which did not reveal any significant v essel blockages. Her hemoglobin and sodium were both low at this visit. She was unable to have TAVR done at this time for her aortic stenosis because of this. Her breathing has been worse for the past 2 weeks and slightly improved with the use of lasix. She has also been experiencing worsening weakness in her legs. She has noticed some left sided chest pain that is worse with inspiration and extends to her abdomen. She denies any edema or palpitations. * Medical History: H ypertension, Hypothyroidism, Hormone replacement therapy, Esophageal reflux, Hypercholestrolemia, type II diabetes, Fibromyalgia, Asthma, Urinary retention, A fib, Back surgery x4, colonoscopy and EGD January [id number] polyps - colonoscopy in 07/07 with isolated [...] surgery x 2 2013, Interstin iCon implant 2015, Medtronic stimulator removed 09/2017, Colonoscopy 06/2018, cataract surgery-bilateral eyes 01/2019, Heart Cath 09/20/2024. * Hospitalization/Major Diagno stic Procedure: G I bleed , Heart-afib , CVA 1992, all above surgeries , [facility]-subdural hematoma 07/2016, [facility] 08/2016, kidney infection 02/2020, Covid 04/2021, Dehydration 06/2021, [facility] 01/2023, [facility] 07/2023, H- Heart Failure 07/13. * Family History: F [...] no. Occupation: retired. * Medications: T aking Apixaban 5 MG Tablet as directed Orally , Taking amLODIPine Besylate 5 MG Tablet 1 tablet Orally Once a day , Taking Eliquis 5 MG Tablet as directed Orally , Taking Carvedilol 25 MG Tablet 1 tablet with food Orally Twice a day , Taking Magnesium 400MG 1 TABLET BY MOUTH 2 TIMES A DAY , Notes to Pharmacist: 100mg *Please review and pick correct strength-formulation from Medispan options. If intended option is not shown, discontinue and re-order from Quick Search*, Taking Vitamin B-12 50 MCG Tablet 1 tab(s) orally once a day , Taking Vitamin D3 25 MCG Capsule 1 cap(s) orally once a week , Taking Donepezil HCl 10 MG Tablet [...] tab(s) orally once a day , Taking Lasix 40 MG Tablet 1 tablet Orally Once a day , Taking Clopidogrel Bisulfate 75 MG Tablet 1 tab(s) orally once a day , Taking Pravastatin Sodium 80 MG Tablet TAKE 1 TABLET BY MOUTH ONCE DAILY AT BEDTIME , Taking QUEtiapine Fumarate 200 MG Tablet TAKE 1 TO 2 TABLETS BY MOUTH ONCE DAILY AT BEDTIME , Discontinued dilTIAZem HCl ER 240 MG Capsule Extended Release 24 Hour 1 capsule Orally Once a day , Discontinued Spironolactone 25 MG Tablet Take 1 tablet by mouth once daily , Medication List reviewed and reconciled with the patient * Allergies: C restor: hives, DEMEROL HCL: hypotension, VISTARIL: hypotension, Erythromycin: Nausea, Lodine: rash, Cymbalta: a-fib, Aspirin: nose bleeds. Objective: * Vitals: N urse: KJ, Pain: 8 chest/stomach, Temp: 97.5, RR: 18, HR: 80, BP: 126/64, Ht: 61, Wt: 189, BMI:35.71. * Examination: G eneral Examination: General P leasant and Cooperative. Chest: C hest pain reproducible, tenderness on left chest wall. Heart: R egular Rate and Rhythm, systolic murmur. Lungs: S cattered expiratory wheezes bilaterally. Abdomen: D istended, tenderness to palpation diffusely.? Skin: w ithout acute rashes. Psych N ormal Mood/Affect. Assessment: * Assessment: 1. C hronic anemia - D64.9 (Primary) 2 . H yponatremia - E87.1 ?3. E ssential hypertension - I10 4 . C HF NYHA class II, chronic, diastolic - I50.32 5 . M oderate aortic stenosis - I35.0 Plan: * Treatment: Value Reference Range G LUCOSE 120 H 65-99 - mg/dL * U AMBROSE NITROGEN (BUN) 27 H 7-25 - mg/dL * C REATININE 1.70 H 0.60-1.00 - mg/dL * B UN/CREATININE RATIO 16 6-22 - (calc) * S ODIUM 130 L 135-146 - mmol/L * P OTASSIUM 4.9 3.5-5.3 - mmol/L * C HLORIDE 96 L 98-110 - mmol/L * C ARBON DIOXIDE 23 20-32 - mmol/L * C ALCIUM 9.1 8.6-10.4 - mg/dL * P ROTEIN, TOTAL 6.9 6.1-8.1 - g/dL * A LBUMIN 4.1 3.6-5.1 - g/dL * G LOBULIN 2.8 1.9-3.7 - g/dL (calc ) * A LBUMIN/GLOBULIN RATIO 1.5 1.0-2.5 - (calc) * B ILIRUBIN, TOTAL 0.3 0.2-1.2 - mg/dL * A LKALINE PHOSPHATASE 62 37-153 - U/L * A ST 14 10-35 - U/L * A LT 8 6-29 - U/L * E GFR 31 L > OR = 60 - mL/min/1 .73m2 * Samantha Heredia 09/24/19 25 02:12:40 PM EDT > pt informed, will you have Dr Anderson sign an order and send to [facility]?This lab was reviewed by Kervin Arellano on 09/23/2024 at 14:20 PM EDT ?LAB: CBC (INCLUDES DIFF/PLT) (6399)* Value Reference Range W FARTUN BLOOD CELL COUNT 6.1 3.8-10.8 - Thousan d/uL * R ED BLOOD CELL COUNT 2.95 L 3.80-5.10 - Million/ uL * H EMOGLOBIN 7.2 L 11.7-15.5 - g/dL * H EMATOCRIT 24.4 L 35.0-45.0 - % * M CV 82.7 80.0-100.0 - fL * M CH 24.4 L 27.0-33.0 - pg * M CHC 29.5 L 32.0-36.0 - g/dL * R DW 16.8 H 11.0-15.0 - % * P LATELET COUNT 225 140-400 - Thousand/u L * N EUTROPHILS 74.7 - % * A BSOLUTE NEUTROPHILS 4557 8685-7017 - cells/uL * L YMPHOCYTES 15.2 - % * A BSOLUTE LYMPHOCYTES 093 218-8632 - cells/uL * M ONOCYTES 7.9 - % * A BSOLUTE MONOCYTES 482 200-950 - cells/uL * E OSINOPHILS 1.7 - % * A BSOLUTE EOSINOPHILS 104 15-500 - cells/uL * B ASOPHILS 0.5 - % * A BSOLUTE BASOPHILS 31 0-200 - cells/uL * M PV 9.4 7.5-12.5 - fL * Samantha Heredia 09/24/19 02:12:40 PM EDT > pt informed, will you have Dr Anderson sign an order and send to [facility]?This lab was reviewed by Kervin Arellano on 09/23/2024 at 14:20 PM EDT ?LAB: VITAMIN B12/FOLATE, SERUM PANEL (7065)* Value Reference Range F OLATE, SERUM 10.7 - ng/mL * V ITAMIN B12 >2000 H 200-1100 - pg/mL * Samantha Heredia 09/24/19 02:12:40 PM EDT > pt informed, will you have Dr Anderson sign an order and send to [facility]?This lab was reviewed by Kervin Arellano on 09/23/2024 at 14:20 PM EDT ?LAB: FERRITIN (457)* Value Reference Range F ERRITIN 13 L 16-288 - ng/mL * Samantha Heredia 09/24/19 02:12:40 PM EDT > pt informed, will you have Dr Anderson sign an order and send to [facility]?This lab was reviewed by Kervin Arellano on 09/23/2024 at 14:20 PM EDT Notes: Obtain labs today Patient may need transfusion tomorrow??2.?Hyponatremia? Stop Escitalopram Oxalate Tablet, 20 MG, 1 tab(s), orally, once a day;?Stop Famotidine Tablet,20 MG, 1 tab(s), orally, 2 times a day.?LAB: COMPREHENSIVE METABOLIC PANEL (40632)* Value Reference Range G LUCOSE 120 H 65-99 - mg/dL * U AMBROSE NITROGEN (BUN) 27 H 7-25 - mg/dL * C REATININE 1.70 H 0.60-1.00 - mg/dL * B UN/CREATININE RATIO 16 6-22 - (calc) * S ODIUM 130 L 135-146 - mmol/L * P OTASSIUM 4.9 3.5-5.3 - mmol/L * C HLORIDE 96 L 98-110 - mmol/L * C ARBON DIOXIDE 23 20-32 - mmol/L * C ALCIUM 9.1 8.6-10.4 - mg/dL * P ROTEIN, TOTAL 6.9 6.1-8.1 - g/dL * A LBUMIN 4.1 3.6-5.1 - g/dL * G LOBULIN 2.8 1.9-3.7 - g/dL (calc ) * A LBUMIN/GLOBULIN RATIO 1.5 1.0-2.5 - (calc) * B ILIRUBIN, TOTAL 0.3 0.2-1.2 - mg/dL * A LKALINE PHOSPHATASE 62 37-153 - U/L * A ST 14 10-35 - U/L * A LT 8 6-29 - U/L * E GFR 31 L > OR = 60 - mL/min/1 .73m2 * Samantha Heredia 09/24/19 25 02:12:40 PM EDT > pt informed, will you have Dr Anderson sign an order and send to [facility]?This lab was reviewed by Kervin Arellano on 09/23/2024 at 14:20 PM EDT ?LAB: CBC (INCLUDES DIFF/PLT) (7579)* Value Reference Range W FARTUN BLOOD CELL COUNT 6.1 3.8-10.8 - Thousan d/uL * R ED BLOOD CELL COUNT 2.95 L 3.80-5.10 - Million/ uL * H EMOGLOBIN 7.2 L 11.7-15.5 - g/dL * H EMATOCRIT 24.4 L 35.0-45.0 - % * M CV 82.7 80.0-100.0 - fL * M CH 24.4 L 27.0-33.0 - pg * M CHC 29.5 L 32.0-36.0 - g/dL * R DW 16.8 H 11.0-15.0 - % * P LATELET COUNT 225 140-400 - Thousand/u L * N EUTROPHILS 74.7 - % * A BSOLUTE NEUTROPHILS 4557 7046-2935 - cells/uL * L YMPHOCYTES 15.2 - % * A BSOLUTE LYMPHOCYTES 358 531-2640 - cells/uL * M ONOCYTES 7.9 - % * A BSOLUTE MONOCYTES 482 200-950 - cells/uL * E OSINOPHILS 1.7 - % * A BSOLUTE EOSINOPHILS 104 15-500 - cells/uL * B ASOPHILS 0.5 - % * A BSOLUTE BASOPHILS 31 0-200 - cells/uL * M PV 9.4 7.5-12.5 - fL * Samantha Heredia N 09/24/19 02:12:40 PM EDT > pt informed, will you have Dr Anderson sign an order and send to [facility]?This lab was reviewed by Kervin Arellano on 09/23/2024 at 14:20 PM EDT ?LAB: VITAMIN B12/FOLATE, SERUM PANEL (7065)* Value Reference Range F OLATE, SERUM 10.7 - ng/mL * V ITAMIN B12 >2000 H 200-1100 - pg/mL * Samantha Heredia 09/24/19 02:12:40 PM EDT > pt informed, will you have Dr Anderson sign an order and send to [facility]?This lab was reviewed by Kervin Arellano on 09/23/2024 at 14:20 PM EDT ?LAB: FERRITIN (457)* Value Reference Range F ERRITIN 13 L 16-288 - ng/mL * Samantha Heredia 09/24/19 02:12:40 PM EDT > pt informed, will you have Dr Anderson sign an order and send to [facility]?This lab was reviewed by Kervin Arellano on 09/23/2024 at 14:20 PM EDT Notes: Obtain labs today Stop Lexapro and Pepcid which may deplete sodium??3.?Essential hypertension? Notes: Well controlled today Continue current regimen??4.?CHF NYHA class II, chronic, diastolic? Notes: Patient follows with cardiology at [facility]??5.?Moderate aortic stenosis? Notes: Following with [facility], TAVR once hemoglobin and sodium are stable.?? * Procedure Codes: G 2211 Complex e/m visit add on * Follow Up: p rn * * Sign off status: Completed true * Provider: Sariah Anderson MD Date: 0 09/22/2024 Generated for Jenniferi karlie/Melo/eTransmitting on: 0 09/24/2024 11:13 AM EDT History and Physical Notes * HPI (History of Present Illness) Category Sub-Category Detail Notes Category Not es gen Ms. Azul is a 78 year old female presenting to the clinic for 3 month follow-up, difficulty breathing and weakness. She had a heart cath done on Friday which did not reveal any significant vessel blockages. Her hemoglobin and sodium were both low at this visit. She was unable to have TAVR done at this time for her aortic stenosis because of this. Her breathing has been worse for the past 2 weeks and slightly improved with the use of lasix. She has also been experiencing worsening weakness in her legs. She has noticed some left sided chest pain that is worse with inspiration and extends to her abdomen. She denies any edema or palpitations. Examination Category Sub-Category Detail Notes Category Not es General Examination Heart: Regular Rate and Rhythm, systolic murmur Lungs: Scattered expiratory wheezes bilaterally Abdomen: Distended, tendernes s to palpation diffusely Skin: without acute rashes Chest: Chest pain reproduci ble, tenderness on left chest wall General Pleasant and Coopera tive Psych Normal Mood/Affect
[2024-09-24] VITALS (11 sets, daily range): BP systolic 118–153; BP diastolic 52–65; PULSE 60–66; RESP 18; TEMP 35.8–36.4; O2SAT 97–98; BMI 35.6
--- OUTSIDE RECORDS SUMMARY | 2024-09-24 11:13 | XMS_ITS | Clinical Summary ---
Author Organization [facility] Address [address] [place] [address] Phone Care Team Providers Care Energy Project Engineer Name Role Phone Velvet ROY, Emanuel Baron [ ] Conditions or Problems Problem Name Problem Code Onset Date Status Entry Date Provider Comment Standard Description Annotate Nausea [id number] (SNOMED CT) 05/09 Active 05/09 Emanuel Verdin MD Nausea ELEVATED CRP R79.82 (ICD-10-CM ) 06/07 Active 06/07 Sarika Avinash Elevated C-reactive protein (CRP) ELEVATED SEDIMENTATION RATE 535858654 (SNOMED CT) 06/07 Active 06/07 Sarika Da Silva Erythrocyte sedimentation rate above reference range Obesity 461919279 (SNOMED CT) 05/03 Active 05/03 Tiesha W Obesity Diabetes mellitus type II, not stated as uncontrolled E11.9 (ICD-10-CM ) 05/03 Active 05/03 Tiesha W Type 2 diabetes mellitus without complications BACK SURGICAL SITE INFECTION 682.2 (ICD-9-CM) 05/03 Active 05/03 Tiesha W Cellulitis and abscess of trunk MSSA A49.01 (ICD-10-CM ) 05/03 Active 05/03 Tiesha W Methicillin susceptible Staphylococcus aureus infection, unspecified site Diarrhea 57407661 (SNOMED CT) 05/03 Active 05/03 Tiesha W Diarrhea Medications Medication Instructions Start Date Stop Date Generic Name ND Provider KLOR-CON 20 MEQ PACK 1 tablet by mouth daily 05/09 POTASSIUM CHLORIDE [id number] Emanuel Verdin MD DOXYCYCLINE HYCLATE 100 MG CAPS Take one (1) tablet by mouth twice a day DOXYCYCLINE HYCLATE 15246446695 Emanuel Verdin MD CEFTRIAXONE SODIUM 2 GM SOLR 2gm IV daily / [facility] outpt 04/25 CEFTRIAXONE SODIUM 64719010850 Emanuel Verdin MD CEFTRIAXONE SODIUM 2 GM SOLR 2gm IV daily / [facility] outpt 04/25 CEFTRIAXONE SODIUM [id number] Anum Forrester RN CEFTRIAXONE SODIUM 2 GM SOLR 2gm IV daily 06/05 CEFTRIAXONE SODIUM [id number] Patito Suárez RN NYSTATIN [id number] UNIT/ML SUSP QID NYSTATIN 25275119753 Ann Marie Guthrie HYDROCODONE-ACETAM INOPHEN 7.5-325 MG TABS Q 6 h HYDROCODONE-ACETAM INOPHEN 78185052213 Ann Marie Guthrie VITAMIN B-12 100 MCG TABS 2 x a month CYANOCOBALAMIN 08034802944 Ann Marie Guthrie ALPHA-LIPOIC ACID 200 MG TABS QD ALPHA-LIPOIC ACID 75279508809 Ann Marie Guthrie VITAMIN E 400 UNIT TABS BID VITAMIN E 82791394867 Ann Marie Guthrie VITAMIN D 1000 UNIT CAPS QD CHOLECALCIFEROL 19711894034 Ann Marie Guthrie PROBIOTIC ACIDOPHILUS BIOBEADS ORAL CAPSULE QD PROBIOTIC PRODUCT 09530286307 Ann Marie Guthrie CHLORDIAZEPOXIDE HCL 5 MG CAPS QID CHLORDIAZEPOXIDE HCL 71788208280 Ann Marie Guthrie ZYRTEC ALLERGY 10 MG CAPS QD CETIRIZINE HCL 31160392720 Ann Marie Guthrie METFORMIN HCL 1000 MG TABS BID METFORMIN HCL 90460761948 Ann Marie Guthrie PRAVASTATIN SODIUM 80 MG TABS QD PRAVASTATIN SODIUM 14155507782 Ann Marie Guthrie LOSARTAN POTASSIUM 100 MG TABS QD LOSARTAN POTASSIUM 24669968139 Ann Marie Guthrie INDAPAMIDE 2.5 MG TABS QD INDAPAMIDE 21826931338 Ann Marie Guthrie PANTOPRAZOLE SODIUM 40 MG TBEC QD PANTOPRAZOLE SODIUM 45094460520 Ann Marie Guthrie ESCITALOPRAM OXALATE 5 MG TABS QD ESCITALOPRAM OXALATE 64911724526 Ann Marie Guthrie CLONAZEPAM 1 MG TABS QD CLONAZEPAM 28105584603 Ann Marie Guthrie NAPROXEN 500 MG TABS QD NAPROXEN 23654567086 Ann Marie Guthrie PREMARIN 1.25 MG TABS QD ESTROGENS CONJUGATED 10401261088 Ann Marie Guthrie LEVOTHYROXINE SODIUM 100 MCG SOLR QD LEVOTHYROXINE SODIUM 42062866736 Ann Marie Guthrie FORTAZ (IV) 05/15 FORTAZ (IV) Ann Marie Guthrie FORTAZ (IV) 05/15 FORTAZ (IV) Emanuel VALERIOOR-CON 20 MEQ PACK 1 tablet by mouth daily 2022/0 07/20 POTASSIUM CHLORIDE [id number] Anum Forrester RN CEFTRIAXONE SODIUM 2 GM SOLR 1gm IV daily 06/05 CEFTRIAXONE SODIUM 08802190971 Patito Suárez RN Medications Administered No information available. Allergies, Adverse Reactions, Alerts Allergy Name Reaction Description Start Date Severity Statu s Provider VISTARIL Moderate Active Abhay W U HYDROXYZINE HCL Moderate Active Jude n W U DEMEROL Moderate Active Abhay W U CRESTOR Moderate Active Abhay W U ASPIRIN Moderate Active Abhay W U Results Date Name Value Unit Range Flag Description Chart Maintenance: labs 03/21 BASO# 0.1 Basophils [#/ volume] in Blood MONOSCT AUTO 0.5 10*3/uL Monocyte s [#/volume] in Blood by Automated count LYMPHCT AUTO 2.5 10*3/mm3 Lymphoc ytes [#/volume] in Blood by Automated count Chart Maintenance: lab MONOCYTE % 6.6 % Monocytes/ 100 leukocytes in Blood by Automated count Lab Report: Protime INR 1.09 INR in Platel et poor plasma by Coagulation assay PROTIME 11.7 Seconds 9.6-11.5 H Prothro mbin time (PT) Lab Report: APTT ACTIV PTT 22 s 24-31 L aPTT in Blo od by Coagulation assay Lab Report: Creatinine GFR EST 84 mL/min estimated chel merular filtration rate Lab Report: Bedside Glucose ZZ-GE-unk 127 mg/dL 75-125 H GE use only - for [employer] import when terms are not otherwise specified Chart Maintenance: Labs 1 LYMPHS % 38.7 % Lymphocytes/ 100 leukocytes in Blood by Automated count PMN % 51.5 % Neutrophils/1 00 leukocytes in Blood by Automated count Office Visit: 10 MEDS REVIEW Done Documenta tion of current medications (procedure) SMOK STATUS Never smoker 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 Lab Report: CBC w Auto Diff IMM GRANU % 0.1 % 0.0-0.6 N Immature granulocytes/100 leukocytes in Blood BASOPHIL % 0.2 % 0.0-1.0 N Basophils/ 100 leukocytes in Blood by Manual count % EOS AUTO 1.7 % 0.0-3.0 N Eosinophil s/100 leukocytes in Blood by Automated count MONOCYTE BF 6.8 % 0.0-12.0 N monocyte s as percent of body fluid leukocytes LYMPHOCY BF 36.1 % 24.0-44.0 N lymphoc ytes as percent of body fluid leukocytes NEUTROP BF 55.1 % 41.0-71.0 N Neutroph ils/100 leukocytes in Body fluid BASOABSOLMAN 0.02 K/MCL {Cells}/ uL 0.00-0.20 N basophils, absolute, manual EOS ABSLT 0.14 10*3/uL 0.10-0.30 N Eosinophi ls [#/volume] in Blood MONOCYTABMAN 0.56 K/MCL {Cells}/ uL 0.00-1.00 N monocytes, absolute, manual LYMPHSABSMAN 2.95 K/MCL {Cells}/ uL 0.60-4.80 N lymphocytes, absolute, manual ABS NEUTROPH 4.50 10*3/uL 1.50-8.30 N Neutro phils [#/volume] in Blood PLATELETS 355 10*3/mm3 150-450 N Platelets [#/volume] in Blood by Automated count RDW_ 13.8 11.3-14.5 N RDW, no uni ts MCHC 31.3 G/DL 32.0-36.0 L MCHC [Mass/ volume] by Automated count MCH 25.8 pg 27.0-31.0 L MCH [Entiti c mass] by Automated count MCV 82.6 fL 80.0-99.0 N MCV [Entiti c volume] by Automated count HCT 33.6 % 34.5-44.0 L Hematocrit [Volume Fraction] of Blood by Automated count HGB 10.5 g/dL 11.5-15.5 L Hemoglobin [Mass/volume] in Blood RBC 4.07 M/MCL 10*6/mm3 3.89-5.14 N Erythro cytes [#/volume] in Blood by Automated count WBC 8.18 10*3/mm3 3.50-10.8 0 N Leukocytes [#/volume] in Blood by Automated count Lab Report: C-Reactive Prote in CRPCARDRISK 4.9 mg/L 0.000-10. 0 N C reactive protein [Mass/volume] in Serum or Plasma Lab Report: Comprehensive Me tabolic Panel ANIONGAP 2 mmol/L 3-11 L anion gap, s hellen GFRC 76 mL/min/1 .73m2 Glomerular Filtration Rate Calculation ALBUMIN 4.2 g/dL 3.2-4.8 N Albumin [Mass/volume] in Serum or Plasma PROTEIN, TOT 7.7 g/dL 5.7-8.2 N Protein [Mass/volume] in Serum or Plasma BILI TOTAL 0.2 mg/dL 0.3-1.2 L Bilirubin. total [Mass/volume] in Serum or Plasma SGPT (ALT) 10 U/L 7-40 N Alanine aminotransferase [Enzymatic activity/volume] in Serum or Plasma SGOT (AST) 20 U/L 0-33 N Aspartate aminotransferase [Enzymatic activity/volume] in Serum or Plasma ALK PHOS 85 U/L 25-100 N Alkaline alberto sphatase [Enzymatic activity/volume] in Blood CALCIUM 9.3 mg/dL 8.7-10.4 N Calcium [Moles/volume] in Serum or Plasma CO2 34 mmol/L 20-31 H Carbon dioxid e, total [Moles/volume] in Venous blood CHLORIDE 100 mmol/L 99-109 N Chloride [Moles/volume] in Serum or Plasma POTASSIUM 3.7 mmol/L 3.5-5.5 N Potassium [Moles/volume] in Serum or Plasma SODIUM 136 mmol/L 132-146 N Sodium [Moles/volume] in Serum or Plasma CREATININE 0.8 mg/dL 0.6-1.3 N Creatinine [Mass/volume] in Serum or Plasma BUN 16 mg/dL 9-23 N Urea nitrogen [Mass/volume] in Serum or Plasma GLUCOSE SER 120 mg/dL 70-100 H Glucose [Mass/volume] in Serum or Plasma Lab Report: ESR (Sed Rate) ESR 34 mm/h 0-30 H Erythrocyte sedimentation rate by Westergren method Lab Report: Culture Fungus CULTURE Specimen/Inna rce: Aspirate/L3- L4 DISC ASP culture, comment Plan of Care Type Date Detail Pending order CMP Pending order CBC with Differe ntial Pending order Sedimentation Ra te (ESR) Pending order C- reactive prot ein Pending order New Oral Antibio tic Pending order Discontinue IV a ntibiotics Pending order PICC Removal Pending order Continue IV anti biotics Pending order Weekly Labs (Con tinue) Pending order Weekly PICC Line Care Pending order Continue IV anti biotics Pending order Weekly Labs (Con tinue) Pending order Weekly PICC Line Care Pending order Continue IV anti biotics Pending order Weekly Labs (Con tinue) Pending order Weekly PICC Line Care Pending order Continue IV anti biotics Pending order Continue IV anti biotics Pending order Continue IV anti biotics Pending order Weekly Labs (Con tinue) Pending order Weekly PICC Line Care Pending order Continue IV anti biotics Pending order CBC with Differe ntial Pending order CMP Pending order C-Diff PCR Patient education Medications Procedures Code Procedure Name Date Entry Date CPT-52247 CMP [id number] CBC with Differential 2014 CPT-89802 Sedimentation Rate (ESR) 201 08/19/18 CPT-82789 C- reactive protein CPT-jeff New Oral Antibiotic CPT-DC Discontinue IV antibiotics 2 CPT-PICREM PICC Removal CPT-ca Continue IV antibiotics 2013 CPT-cwl Weekly Labs (Continue) 04/12 CPT-wpc Weekly PICC Line Care 06/13 CPT-ca Continue IV antibiotics 2013 CPT-cwl Weekly Labs (Continue) 04/04 CPT-wpc Weekly PICC Line Care 06/05 CPT-ca Continue IV antibiotics 2013 CPT-cwl Weekly Labs (Continue) 03/28 CPT-wpc Weekly PICC Line Care 05/29 CPT-ca Continue IV antibiotics 2013 CPT-ca Continue IV antibiotics 2013 CPT-ca Continue IV antibiotics 2013 CPT-cwl Weekly Labs (Continue) 03/19 CPT-wpc Weekly PICC Line Care 05/19 CPT-ca Continue IV antibiotics 2013 [id number] CBC with Differential 2013 CPT-14133 CMP CPT-cdpcr C-Diff PCR Vital Signs Date Name Value Unit Description BMI (Body Mass Index) 34.89 kg/m2 Bod y Mass Index (Ratio) Body Temperature 97.1 [degF] temperat ure E&M BP Diastolic 80 mm[Hg] blood pressu re, diastolic BP Systolic 132 mm[Hg] blood pressur e, systolic Heart Rate 84 /min pulse rate Height 61 [in_us] height E&M Respiratory Rate 12 /min respirat ory rate E&M Weight Measured 184 [lb_av] weight E& M Weight Measured 184 [lb_av] weight E& M Immunizations No information available. Advance Directives No information available.
--- OUTSIDE RECORDS SUMMARY | 2024-09-24 11:13 | XMS_ITS | Clinical Summary ---
Author Organization [facility] Address [address] [place] [address] Care Team Providers Care Manufacturing Support Engineer Name Role Phone Sravan Anderson MD Primary Care Provider Social History Tobacco Use Types Packs/Day Years Used Date Smoking Tobacco: Never Comments Unknown Sex and Gender Information Value Date Recorded Sex Assigned at Not on file Legal Sex Female 8:47 PM EDT Gender Identity Not on file Sexual Orientation Not on file Last Filed Vital Signs Vital Sign Reading Time Taken Comments Blood Pressure 132/80 12/18/2017 3:17 PM EDT Pulse 95 12/18/2017 3:17 PM EDT Temperature - - Respiratory Rate 16 12/18/2017 3:17 PM EDT Oxygen Saturation - - Inhaled Oxygen Concentration - - Weight 84.1 kg (185 lb 6.5 oz) 12/18/2017 3:17 P M EDT Height 154.9 cm (5' 1 ) 12/18/2017 3:17 PM EDT Body Mass Index 35.03 12/18/2017 3:17 PM EDT Plan of Treatment Not on file Care Teams Manufacturing Support Engineer Relationship Specialty Start Date End Date Sravan Anderson MD [address] [place] [address] [place] [address] PCP - General 09/01/20
--- OUTSIDE RECORDS SUMMARY | 2024-09-24 11:14 | XMS_ITS | Patient Health Record ---
Author Organization [facility] Address [address] [place] [address] Care Team Providers Care Nurse Reviewer Name Role Phone Sravan Anderson Primary Care Provider [phone] Migration, Provider Unavailable Unavailable Allergies Allergen (clinical drug ingredient) Drug/Non Drug [...] Reference Range Notes COMPREHENSIVE METABOLIC PANE L (01621) Reviewed date:09/23/2024 02:20:49 PM Interpretation: Performing Lab:CB, [facility] Aeba1322 [facility], [facility] RapidsBtcxWS[address] Nathalia Hammer Notes/Report: NON-FASTING; NON-FASTING; NON-FASTING; NON-FASTING GLUCOSE [...] 14 10-35 U/L ALT 8 6-29 U/L COMPREHENSIVE METABOLIC PANE L (78749) Reviewed date:07/28/2024 08:18:49 AM Interpretation: Performing Lab:RENE Evolita Gquo8106 [facility] Nahtalia Hammer Notes/Report: NON-FASTING; NON-FASTING; NON-FASTING GLUCOSE 179 [...] Reviewed date:07/28/2024 08:18:49 AM Interpretation: Performing Lab:RENE Evolita [address], [facility] RapidsKzrjAL[address] Nathalia Hammer Notes/Report: NON-FASTING; NON-FASTING; NON-FASTING MAGNESIUM 1.9 1.5-2.5 mg/dL CBC (INCLUDES DIFF/PLT) (639 9) Reviewed date:07/28/2024 08:18:50 AM Interpretation: Performing Lab:RENE Evolita [address], [facility] RapidsXkxfGR[address] Nathalia Hammer Notes/Report: NON-FASTING; NON-FASTING; NON-FASTING WHITE BLOOD [...] MPV 9.8 7.5-12.5 fL ABSOLUTE NEUTROPHILS 4646 2522-7692 cells/uL ABSOLUTE LYMPHOCYTES 4267 304-3926 cells/uL ABSOLUTE MONOCYTES 550 200-950 cells/uL ABSOLUTE EOSINOPHILS 90 15-500 cells/uL ABSOLUTE BASOPHILS 32 0-200 cells/uL NEUTROPHILS 72.6 LYMPHOCYTES 16.9 MONOCYTES 8.6 EOSINOPHILS 1.4 BASOPHILS 0.5 CBC (INCLUDES DIFF/PLT) (639 9) Reviewed date:09/23/2024 02:20:50 PM Interpretation: Performing Lab:RENE [facility] [address], [facility] RapidsRgwjHR[address] Nathalia Hammer Notes/Report: NON-FASTING; NON-FASTING; NON-FASTING; NON-FASTING WHITE [...] MPV 9.4 7.5-12.5 fL ABSOLUTE NEUTROPHILS 4557 4755-3832 cells/uL ABSOLUTE LYMPHOCYTES 794 161-4465 cells/uL ABSOLUTE MONOCYTES 482 200-950 cells/uL ABSOLUTE EOSINOPHILS 104 15-500 cells/uL ABSOLUTE BASOPHILS 31 0-200 cells/uL NEUTROPHILS 74.7 LYMPHOCYTES 15.2 MONOCYTES 7.9 EOSINOPHILS 1.7 BASOPHILS 0.5 CBC (INCLUDES DIFF/PLT) (639 9) Reviewed date:11/13/2023 09:05:08 PM Interpretation: Performing Lab:CB, [facility] Htbm9786 [facility], [facility]JacwER[address] Nathalia Hammer Notes/Report: NON-FASTING; NON-FASTING; NON-FASTING; NON-FASTING; NON-FAST WHITE BLOOD CELL COUNT 6.2 3.8-10.8 Thousand/ uL RED BLOOD CELL COUNT 3.86 3.80-5.10 Million/uL HEMOGLOBIN 9.8 11.7-15.5 g/dL HEMATOCRIT 30.8 35.0-45.0 % MCV 79.8 80.0-100.0 fL MCH 25.4 27.0-33.0 pg MCHC 31.8 32.0-36.0 g/dL RDW 14.3 11.0-15.0 % PLATELET COUNT 302 140-400 Thousand/uL MPV 9.2 7.5-12.5 fL ABSOLUTE NEUTROPHILS 3714 0458-5921 cells/uL ABSOLUTE LYMPHOCYTES 8160 480-0993 cells/uL ABSOLUTE MONOCYTES 645 200-950 cells/uL ABSOLUTE EOSINOPHILS 112 15-500 cells/uL ABSOLUTE BASOPHILS 31 0-200 cells/uL NEUTROPHILS 59.9 LYMPHOCYTES 27.4 MONOCYTES 10.4 EOSINOPHILS 1.8 BASOPHILS 0.5 HEMOGLOBIN A1c (496) Reviewed date:11/13/2023 09:05:08 PM Interpretation: Performing Lab:RENE [facility]-Justin [address], [place] WgdoHF[address] Nathalia Hammer Notes/Report: NON-FASTING; NON-FASTING; NON-FASTING; NON-FASTING; NON-FAST HEMOGLOBIN A1c 6.8 <5.7 % of total Hgb For someone without known diabetes, a hemoglobin A1c value of 6.5% or greater indicates that they may have diabetes and this should be confirmed with a follow-up test. For someone with known diabetes, a value <7% indicates that their diabetes is well controlled and a value greater than or equal to 7% indicates suboptimal control. A1c targets should be individualized based on duration of diabetes, age, comorbid conditions, and other considerations. Currently, no consensus exists regarding use of hemoglobin A1c for diagnosis of diabetes for children. This test was performed on the Ron linda c503 platform. Effective 06/25/23, a change in test platforms from the [employer] to the Ron linda c503 may have shifted HbA1c results compared to historical results. Based on laboratory validation testing conducted at [facility], the Ron platform relative to the Guerrero platform had an average increase in HbA1c value of < or = 0.3%. This difference is within accepted variability established by the National Glycohemoglobin Standardization Program. Note that not all individuals will have had a shift in their results and direct comparisons between historical and current results for testing conducted on different platforms is not recommended. VITAMIN B12/FOLATE, SERUM PA THAIS (7065) Reviewed date:09/23/2024 02:20:50 PM Interpretation: Performing Lab:RENE [facility]-Justin [address], [place] FyuuAC[address] Nathalia Hammer Notes/Report: NON-FASTING; NON-FASTING; NON-FASTING; NON-FASTING VITAMIN B12 >2000 200-1100 pg/mL FOLATE, SERUM 10.7 Reference Range Low: <3.4 Borderline: 3.4-5.4 Normal: >5.4 VITAMIN B12 (927) Reviewed date:11/13/2023 09:05:08 PM Interpretation: Performing Lab:RENE [facility] [address], [facility] RapidsJecbOJ[address] Nathalia Hammer Notes/Report: NON-FASTING; NON-FASTING; NON-FASTING; NON-FASTING; NON-FAST VITAMIN B12 >2000 200-1100 pg/mL FERRITIN (457) Reviewed date:09/23/2024 02:20:50 PM Interpretation: Performing Lab:RENE [facility] [address] [facility], [facility] RapidsCflhFE[address] Nathalia Hammer Notes/Report: NON-FASTING; NON-FASTING; NON-FASTING; NON-FASTING FERRITIN 13 16-288 ng/mL TSH (899) Reviewed date:11/13/2023 09:05:08 PM Interpretation: Performing Lab:RENE ZigaVite140Firee[address] [employer], [facility] RapidsQympWZ[address] Nathalia Hammer Notes/Report: NON-FASTING; NON-FASTING; NON-FASTING; NON-FASTING; NON-FAST TSH 2.07 0.40-4.50 mIU/L X ray : Spines, Coccyx & Sac rum Reviewed date:11/13/2023 09:05:08 PM Interpretation: Performing Lab: Notes/Report: X ray : Spines, Lumbar Reviewed date:11/13/2023 09:05:07 PM Interpretation: Performing Lab: Notes/Report: Urinalysis Reviewed date:11/10/2023 05:23:53 PM Interpretation: Performing Lab: Notes/Report: Color/Clarity yellow Leuk neg Nitrite neg Urobili 0.2 Protein neg pH 5.5 Blood neg Sp. Gr. 1,010 Ketone neg Bili neg Glucose neg COMPREHENSIVE METABOLIC PANE L (89558) Reviewed date:11/13/2023 09:05:08 PM Interpretation: Performing Lab:RENE [facility] [address] [facility], [facility] RapidsLdrfTD[address] Nathalia Hammer Notes/Report: NON-FASTING; NON-FASTING; NON-FASTING; NON-FASTING; NON-FAST GLUCOSE 88 65-99 mg/dL Fasting reference interval UREA NITROGEN (BUN) 18 7-25 mg/dL CREATININE 1.41 0.60-1.00 mg/dL EGFR 39 > OR = 60 mL/min/1.73m2 BUN/CREATININE RATIO 13 6-22 (calc) SODIUM 135 135-146 mmol/L POTASSIUM 4.6 3.5-5.3 mmol/L CHLORIDE 99 98-110 mmol/L CARBON DIOXIDE 22 20-32 mmol/L CALCIUM 9.7 8.6-10.4 mg/dL PROTEIN, TOTAL 7.7 6.1-8.1 g/dL ALBUMIN 4.2 3.6-5.1 g/dL GLOBULIN 3.5 1.9-3.7 g/dL (calc) ALBUMIN/GLOBULIN RATIO 1.2 1.0-2.5 (calc) BILIRUBIN, TOTAL 0.4 0.2-1.2 mg/dL ALKALINE PHOSPHATASE 71 37-153 U/L AST 18 10-35 U/L ALT 12 6-29 U/L DEXA Hip and Spine - Screeni ng Reviewed date:12/10/2023 01:04:54 PM Interpretation: Performing Lab: Notes/Report: THYROID PANEL WITH TSH (7444 ) Reviewed date:04/06/2024 03:12:15 PM Interpretation: Performing Lab:RENE [facility] Oqer3275 [facility], [facility] RapidsCxmiER[address] Nathalia Hammer Notes/Report: NON-FASTING; NON-FASTING; NON-FASTING; NON-FASTING; NON-FAST T3 UPTAKE 32 22-35 % T4 (THYROXINE), TOTAL 8.7 5.1-11.9 mcg/dL FREE T4 INDEX (T7) 2.8 1.4-3.8 TSH 1.50 0.40-4.50 mIU/L COMPREHENSIVE METABOLIC PANE L (08305) Reviewed date:04/06/2024 03:12:15 PM Interpretation: Performing Lab:RENE Jayporee1355 [facility], [facility] RapidsOjhpLR[address] Nathalia Hammer Notes/Report: NON-FASTING; NON-FASTING; NON-FASTING; NON-FASTING; NON-FAST GLUCOSE 138 65-99 mg/dL Fasting reference interval For someone without known diabetes, a glucose value >125 mg/dL indicates that they may have diabetes and this should be confirmed with a follow-up test. UREA NITROGEN (BUN) 16 7-25 mg/dL CREATININE 1.20 0.60-1.00 mg/dL EGFR 47 > OR = 60 mL/min/1.73m2 BUN/CREATININE RATIO 13 6-22 (calc) SODIUM 129 135-146 mmol/L POTASSIUM 4.4 3.5-5.3 mmol/L CHLORIDE 93 98-110 mmol/L CARBON DIOXIDE 23 20-32 mmol/L CALCIUM 9.4 8.6-10.4 mg/dL PROTEIN, TOTAL 7.1 6.1-8.1 g/dL ALBUMIN 4.1 3.6-5.1 g/dL GLOBULIN 3.0 1.9-3.7 g/dL (calc) ALBUMIN/GLOBULIN RATIO 1.4 1.0-2.5 (calc) BILIRUBIN, TOTAL 0.4 0.2-1.2 mg/dL ALKALINE PHOSPHATASE 84 37-153 U/L AST 16 10-35 U/L ALT 13 6-29 U/L BASIC METABOLIC PANEL (97684 ) Reviewed date:07/15/2024 09:18:20 AM Interpretation: Performing Lab:RENE Evolita [address] [employer], [employer] Plume TechnologiesEkesAL[address] Nathalia Hammer Notes/Report: NON-FASTING GLUCOSE 182 65-99 mg/dL Fasting reference interval For someone without known diabetes, a glucose value >125 mg/dL indicates that they may have diabetes and this should be confirmed with a follow-up test. UREA NITROGEN (BUN) 24 7-25 mg/dL CREATININE 1.38 0.60-1.00 mg/dL EGFR 40 > OR = 60 mL/min/1.73m2 BUN/CREATININE RATIO 17 6-22 (calc) SODIUM 127 135-146 mmol/L POTASSIUM 5.0 3.5-5.3 mmol/L CHLORIDE 92 98-110 mmol/L CARBON DIOXIDE 23 20-32 mmol/L CALCIUM 9.4 8.6-10.4 mg/dL BASIC METABOLIC PANEL (21234 ) Reviewed date:07/07/2024 12:43:17 PM Interpretation: Performing Lab:RENE [facility] Dato[address] [employer], [employer] Plume TechnologiesGiuyBB[address] Nathalia Hammer Notes/Report: NON-FASTING NON-FASTING GLUCOSE 134 65-99 mg/dL Fasting reference interval For someone without known diabetes, a glucose value >125 mg/dL indicates that they may have diabetes and this should be confirmed with a follow-up test. UREA NITROGEN (BUN) 42 7-25 mg/dL CREATININE 2.20 0.60-1.00 mg/dL EGFR 23 > OR = 60 mL/min/1.73m2 BUN/CREATININE RATIO 19 6-22 (calc) SODIUM 133 135-146 mmol/L POTASSIUM 4.6 3.5-5.3 mmol/L CHLORIDE 95 98-110 mmol/L CARBON DIOXIDE 26 20-32 mmol/L CALCIUM 9.8 8.6-10.4 mg/dL MAGNESIUM (622) Reviewed date:04/06/2024 03:12:15 PM Interpretation: Performing Lab:CB, [facility] [address], [facility] RapidsNswqXR[address] Nathalia Hammer Notes/Report: NON-FASTING; NON-FASTING; NON-FASTING; NON-FASTING; NON-FAST MAGNESIUM 1.3 1.5-2.5 mg/dL MAGNESIUM (622) Reviewed date:07/07/2024 12:43:17 PM Interpretation: Performing Lab:CB, [facility] [address], [facility] RapidsOvpsWK[address] Nathalia Hammer Notes/Report: NON-FASTING NON-FASTING MAGNESIUM 2.0 1.5-2.5 mg/dL TISSUE PATHOLOGY (3542) Reviewed date:01/31/2024 09:15:48 AM Interpretation: Performing Lab:CA, [facility]-[address] Nathalia Hammer Notes/Report: CLINICAL INFORMATION Rash PATHOLOGIST Manan Stokes M.D., Board Certified in Anatomic Pathology, Clinical Pathology, Specializing in Gynecological Pathology (electronic signature) REPORT NOTES The differential diagnosis includes bullous pemphigoid. If a bullous disease is suspected, direct immunofluorescence is recommended. A SOURCE Skin, upper rig ht back, biopsy A GROSS DESCRIPTION Specimen is received in 10% neutral buffered formalin, labeled with multiple patient identifier(s) and consists of one piece of skin measuring 0.7 x 0.5 x 0.3 cm, polypoid in shape and pale-bardales in color. The margins are inked green. The specimen is trisected and entirely submitted in one cassette. Site is not given on container. Gross exam(s) performed at: [facility] [address] [address] Breast Buffer: NATHALIA HAMMER MD A DIAGNOSIS Fragment of skin with subepidermal bulla and overlying inflamed scale crust. MAGNESIUM (622) Reviewed date:11/13/2023 09:05:08 PM Interpretation: Performing Lab:RENE [facility] [address], [place] QhdeSX[address] Nathalia Hammer Notes/Report: NON-FASTING; NON-FASTING; NON-FASTING; NON-FASTING; NON-FAST MAGNESIUM 1.4 1.5-2.5 mg/dL LIPID PANEL, STANDARD (7600) Reviewed date:11/13/2023 09:05:08 PM Interpretation: Performing Lab:RENE [facility] [address], [place] HkwlYT[address] Nathalia Hammer Notes/Report: NON-FASTING; NON-FASTING; NON-FASTING; NON-FASTING; NON-FAST CHOLESTEROL, TOTAL 153 <200 mg/dL HDL CHOLESTEROL 61 > OR = 50 mg/dL TRIGLYCERIDES 130 <150 mg/dL LDL-CHOLESTEROL 71 Reference range: <100 Desirable range <100 mg/dL for primary prevention; <70 mg/dL for patients with CHD or diabetic patients with > or = 2 CHD risk factors. LDL-C is now calculated using the Atif-Olsen calculation, which is a validated novel method providing better accuracy than the Friedewald equation in the estimation of LDL-C. Atif SS et al. JESSICA. 2013;310(19): 7596-1005 (http://education.[employer]./faq/AXI392) CHOL/HDLC RATIO 2.5 <5.0 (calc) NON HDL CHOLESTEROL 92 <130 mg/dL (calc) For patients with diabetes plus 1 major ASCVD risk factor, treating to a non-HDL-C goal of <100 mg/dL (LDL-C of <70 mg/dL) is considered a therapeutic option. CBC (INCLUDES DIFF/PLT) (639 9) Reviewed date:04/06/2024 03:12:15 PM Interpretation: Performing Lab:RENE Evolita [address], 140FireMtxsYI[address] Nathalia Hammer Notes/Report: NON-FASTING; NON-FASTING; NON-FASTING; NON-FASTING; NON-FAST WHITE BLOOD CELL COUNT 9.3 3.8-10.8 Thousand/ uL RED BLOOD CELL COUNT 4.15 3.80-5.10 Million/uL HEMOGLOBIN 10.2 11.7-15.5 g/dL HEMATOCRIT 32.0 35.0-45.0 % MCV 77.1 80.0-100.0 fL MCH 24.6 27.0-33.0 pg MCHC 31.9 32.0-36.0 g/dL For adults, a slight decrease in the calculated MCHC value (in the range of 30 to 32 g/dL) is most likely not clinically significant; however, it should be interpreted with caution in correlation with other red cell parameters and the patient's clinical condition. RDW 16.4 11.0-15.0 % PLATELET COUNT 292 140-400 Thousand/uL MPV 9.7 7.5-12.5 fL ABSOLUTE NEUTROPHILS 7384 1478-8614 cells/uL ABSOLUTE LYMPHOCYTES 8417 444-8131 cells/uL ABSOLUTE MONOCYTES 660 200-950 cells/uL ABSOLUTE EOSINOPHILS 112 15-500 cells/uL ABSOLUTE BASOPHILS 28 0-200 cells/uL NEUTROPHILS 79.4 LYMPHOCYTES 12.0 MONOCYTES 7.1 EOSINOPHILS 1.2 BASOPHILS 0.3 VITAMIN B12/FOLATE, SERUM PA THAIS (7065) Reviewed date:04/06/2024 03:12:15 PM Interpretation: Performing Lab:RENE [facility] [address], 140FireWuyxBF[address] Nathalia Hammer Notes/Report: NON-FASTING; NON-FASTING; NON-FASTING; NON-FASTING; NON-FAST VITAMIN B12 >2000 200-1100 pg/mL FOLATE, SERUM 16.3 Reference Range Low: <3.4 Borderline: 3.4-5.4 Normal: >5.4 FERRITIN (457) Reviewed date:04/06/2024 03:12:15 PM Interpretation: Performing Lab:RENE [facility] [address], [place] HhmfKT[address] Nathalia Hammer Notes/Report: NON-FASTING; NON-FASTING; NON-FASTING; NON-FASTING; NON-FAST FERRITIN 19 16-288 ng/mL VITAMIN D,25-OH,TOTAL,IA (17 306) Reviewed date:04/06/2024 03:12:15 PM Interpretation: Performing Lab:RENE [facility] [address], [place] WtdgAM[address] Nathalia Hammer Notes/Report: NON-FASTING; NON-FASTING; NON-FASTING; NON-FASTING; NON-FAST VITAMIN D,25-OH,TOTAL,IA 27 30-100 ng/mL Vitamin D Status 25-OH Vitamin D: Deficiency: <20 ng/mL Insufficiency: 20 - 29 ng/mL Optimal: > or = 30 ng/mL For 25-OH Vitamin D testing on patients on D2-supplementation and patients for whom quantitation of D2 and D3 fractions is required, the QuestAssureD(TM) 25-OH VIT D, (D2,D3), LC/MS/MS is recommended: order code 18130 (patients >2yrs). See Note 1 Note 1 For additional information, please refer to http://education.BERD.Limtel/faq/HKY138 (This link is being provided for informational/ educational purposes only.) BASIC METABOLIC PANEL (29124 ) Reviewed date:06/24/2024 01:53:06 PM Interpretation: Performing Lab:RENE [facility]ite-[address] [employer], [employer] BiosciencesXadqMX[address] Nathalia Hammer Notes/Report: NON-FASTING; NON-FASTING GLUCOSE 106 65-99 mg/dL Fasting reference interval For someone without known diabetes, a glucose value between 100 and 125 mg/dL is consistent with prediabetes and should be confirmed with a follow-up test. UREA NITROGEN (BUN) 15 7-25 mg/dL CREATININE 1.25 0.60-1.00 mg/dL EGFR 45 > OR = 60 mL/min/1.73m2 BUN/CREATININE RATIO 12 6-22 (calc) SODIUM 135 135-146 mmol/L POTASSIUM 4.6 3.5-5.3 mmol/L CHLORIDE 99 98-110 mmol/L CARBON DIOXIDE 25 20-32 mmol/L CALCIUM 9.5 8.6-10.4 mg/dL HEMOGLOBIN A1c (496) Reviewed date:06/24/2024 01:53:06 PM Interpretation: Performing Lab:RENE [address], [employer] BiosciencesCfjyPF[address] Nathalia Hammer Notes/Report: NON-FASTING; NON-FASTING HEMOGLOBIN A1c 7.2 <5.7 % of total Hgb For someone without known diabetes, a hemoglobin A1c value of 6.5% or greater indicates that they may have diabetes and this should be confirmed with a follow-up test. For someone with known diabetes, a value <7% indicates that their diabetes is well controlled and a value greater than or equal to 7% indicates suboptimal control. A1c targets should be individualized based on duration of diabetes, age, comorbid conditions, and other considerations. Currently, no consensus exists regarding use of hemoglobin A1c for diagnosis of diabetes for children. Medications Medication SIG (Take, Route, Frequency, Duration) Notes Start Date End Date Status Magnesium 400MG 1 TABLET BY MOUTH 2 TIMES A DAY 100mg *Please review and pick correct strength-formulatio n from [employer] options. If intended option is not shown, discontinue and re-order from Quick Search* Active Clopidogrel Bisulfate 75 MG 1 tab(s) orally once a day for 90 days Active Lasix 40 MG 1 tablet Orally Once a day for 90 days Active Vitamin D3 25 MCG 1 cap(s) orally once a week Active Vitamin B-12 50 MCG 1 tab(s) orally once a day Active Pantoprazole Sodium 40 MG 1 tab(s) orally once a day for 90 days Active QUEtiapine Fumarate 200 MG TAKE 1 TO 2 TABLETS BY MOUTH ONCE DAILY AT BEDTIME for 30 Active Donepezil HCl 10 MG 1 tab(s) orally once a day with a meal for 90 days Active Pravastatin Sodium 80 MG TAKE 1 TABLET BY MOUTH ONCE DAILY AT BEDTIME for 90 Active Memantine HCl 10 MG 1 tab(s) orally 2 times a day for 90 days Active amLODIPine Besylate 5 MG 1 tablet Orally Once a day Active Janumet 50-1000 MG Take 1 tablet by mouth twice daily for 90 days Active Apixaban 5 MG as directed Orally Active Carvedilol 25 MG 1 tablet with food Orally Twice a day Active Eliquis 5 MG as directed Orally Active Levothyroxine Sodium 88 MCG 1 tab(s) orally once a day for 90 days Active Immunizations Vaccine Route Administration Date Status Comme nts Covid Moderna Unknown 05/31/2020 Administered Covid Moderna Unknown 06/28/2020 Administered Fluvirin--Influenza vaccine 3+ year IM Intramuscular 02/24/2007 Administered Fluvirin--Influenza vaccine 3+ year IM Intramuscular 02/03/2009 Administered Fluvirin--Influenza vaccine 3+ year Unknown 02/05/2010 Administered Fluvirin--Influenza vaccine 3+ year IM Intramuscular 02/07/2011 Administered Fluzone High Dose IM Intramuscular 02/13/2018 Administered Fluzone High Dose IM Intramuscular 01/15/2019 Administered Fluzone High Dose IM Intramuscular 03/20/2020 Administered Fluzone High Dose IM Intramuscular 05/21/2021 Administered Hep A Adult 2 Dose IM Intramuscular 05/11/2018 Administere d Influenza (Fluzone)--Medicare only IM Intramuscular 02/09/2016 Administered Influenza (Fluzone)--Medicare only IM Intramuscular 12/27/2016 Administered Pneumovax 23 IM Intramuscular 06/14/2019 Administered Prevnar PCV-13 (Pneumococcal conjugate 13) IM Intramuscular 02/13/2018 Administered Problems Problem Type SNOMED Code ICD Code Onset Dates Problem Status W/U Status Risk Notes Problem 61376013 Type 2 diabetes mellitus without complications (E11.9) Active confirmed Problem 455176040 Obesity, unspecified (E66.9) Active confirmed Problem Hypomagnesemia (398280400) Hypomagnesemia (E83.42) Active confirmed Problem 29085129 Generalized anxiety disorder (F41.1) Active confirmed Problem 8671974 Primary insomnia (F51.01) Active confirmed Problem 43955135 Essential (primary) hypertension (I10) Active confirmed Problem Atrial fibrillation (77154692) Unspecified atrial fibrillation (I48.91) Active confirmed Problem 8909795 Unspecified atrial flutter (I48.92) Active confirmed Problem Gastro-esophageal reflux disease without esophagitis (611573159) Gastro-esophageal reflux disease without esophagitis (K21.9) Active confirmed Problem 241443214 Irritable bowel syndrome with diarrhea (K58.0) Active confirmed Problem 16135129 Bullous pemphigoid (L12.0) Active confirmed Problem 04028216 Urge incontinenc e (N39.41) Active confirmed Problem 025890925 Adverse effect o f glucocorticoids and synthetic analogues, initial encounter (T38.0X5A) Active confirmed Problem 269599244 Vitamin B12 deficiency (E53.8) Active confirmed Problem 384395839 Hypothyroidism (acquired) (E03.9) Active confirmed Problem 13147986 Essential hypertension (I10) Active confirmed Problem 086967942 Hyperlipemia, 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 Problem Urinary frequency (104337992) Urinary frequency (R35.0) Active confirmed Problem 416401725 Rash (R21) Active confirmed Problem 10866174 Memory loss (R41.3) Active confirmed Problem 081418473 Frequent falls (R29.6) Active confirmed Problem 405094337 Sigmoid diverticulosis (K57.30) Active confirmed Problem 43358090 Sacroiliitis (M46.1) Active confirmed Problem Peripheral circulatory disorder associated with diabetes mellitus (295697325) Diabetes mellitus with peripheral circulatory disorder (E11.59) Active confirmed Problem 31863044 Cirrhosis of liver without ascites, unspecified hepatic cirrhosis type (K74.60) Active confirmed Problem 218722236 Mammogram abnormal (R92.8) Active confirmed Problem 207563107 Chronic anemia (D64.9) Active confirmed Problem 935835386 History of CVA (cerebrovascular accident) (Z86.73) Active confirmed Problem Chronic diastolic heart failure (894999296) CHF NYHA class II, chronic, diastolic (I50.32) Active confirmed Problem 293028017 Peripheral arter y disease (I73.9) Active confirmed Problem 86791192 Primary hypertension (I10) Active confirmed Problem 550647681 Acute bilateral low back pain with right-sided sciatica (M54.41) Active confirmed Problem 116203974 Iron deficiency anemia secondary to inadequate dietary iron intake (D50.8) Active confirmed Problem 78626724 Type 2 diabetes mellitus with other circulatory complication, without long-term current use of insulin (E11.59) Active confirmed Problem 829159588 Aortic stenosis, moderate (I35.0) Active confirmed Problem 901130929 Stage 1 chronic kidney disease (N18.1) Active confirmed Problem 41953842 Other hyperlipidemia (E78.49) Active confirmed Problem Pressure injury of right buttock stage III (disorder) (92679569994340) Pressure injury of right buttock, stage 3 (L89.313) Active confirmed Problem 722046334 Traumatic brain injury, with loss of consciousness of 30 minutes or less, sequela (S06.9X1S) Active confirmed Problem 484725134 Moderate aortic stenosis (I35.0) Active confirmed Problem 62691207648386650 Pressure injur y of sacral region, unstageable (L89.150) Active confirmed Problem 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) (48266320885999) Cardiorenal syndrome with renal failure, stage 1-4 or unspecified chronic kidney disease, with heart failure (I13.0) Active confirmed Vital Signs Heart Rate 80 /min 09/22/2024 Temperature 97.5 degrees Fahrenheit 09/22/2024 Blood pressure diastolic 64 mm Hg 09/22/2024 Height 61 in 09/22/2024 Blood pressure systolic 126 mm Hg 09/22/2024 Weight 189 lbs 09/22/2024 BMI 35.71 kg/m2 09/22/2024 Encounters Encounter Location Date Provider Diagnosis [facility] [address] [place] [address] 07/24/2024 Provider Migration [facility] [address] [place] [address] 11/10/2023 Sravan Besson Essential hypertensi on I10 ; Type 2 diabetes mellitus with other circulatory complication, without long-term current use of insulin E11.59 ; History of CVA (cerebrovascular accident) Z86.73 ; Acute bilateral low back pain with right-sided sciatica M54.41 ; Other malaise R53.81 ; Other fatigue R53.83 ; Vitamin B 12 deficiency E53.8 ; Routine medical exam Z00.00 and Pressure injury of sacral region, unstageable L89.150 [facility] [address] [place] [address] 12/01/2023 Sravan Besson Essential hypertensi on I10 ; Type 2 diabetes mellitus with other circulatory complication, without long-term current use of insulin E11.59 ; Rash R21 ; Sacroiliitis M46.1 ; Screening for osteoporosis Z13.820 ; Pruritus L29.9 and Healthcare maintenance Z00.00 [facility] [address] [place] [address] 12/29/2023 Sravan Besson Acute bronchitis due to other specified organisms J20.8 [facility] [address] [place] [address] 01/21/2024 Sravan Besson Skin rash R21 [facility] [address] [place] [address] 01/28/2024 Sravan Besson Excoriated rash R21 and Bullous pemphigoid L12.0 [facility] [address] [facility] [address] [place] [address] 02/02/2024 Sravankiara Anderson Bullous pemphigoid L12.0 [facility] [address] [facility] [place] [address] 02/09/2024 Sravan Beslillian Bullous pemphigoid L12.0 [facility] [address] [facility] [place], [place] [address] 02/23/2024 Sravan Beslillian Bullous pemphigoid L12.0 and Adverse effect of glucocorticoids and synthetic analogues, initial encounter T38.0X5A [facility] [address] [facility] [place], [place] [address] 03/29/2024 Sravan Anderson Acute bronchitis, unspecified organism J20.9 [facility] [address] [facility] [place], [place] [address] 04/05/2024 Sravankiara Anderson Other malaise R53.81 ; Other fatigue R53.83 ; Pallor R23.1 and Essential hypertension I10 [facility] [address] [facility] [place], [place] [address] 04/19/2024 Sravankiara Anderson Peripheral edema R60 .0 ; Essential hypertension I10 and Bullous pemphigoid L12.0 [facility] [address] [facility] [place], [place] [address] 06/23/2024 Sravan Anderson Type 2 diabetes mellitus with other circulatory complication, without long-term current use of insulin E11.59 ; Rash R21 and Generalized weakness R53.1 [facility] [address] [facility] [place] [address] 07/05/2024 Sravan Beslillian Unspecified atrial fibrillation I48.91 ; Unspecified atrial flutter I48.92 ; Heart failure with preserved ejection fraction, unspecified HF chronicity I50.30 ; Cirrhosis of liver without ascites, unspecified hepatic cirrhosis type K74.60 ; Normocytic anemia D64.9 ; Peripheral artery disease I73.9 and Hospital discharge follow-up Z09 [facility] [address] [place] [address] 07/12/2024 Sravan Besson Aortic stenosis, moderate I35.0 ; CHF NYHA class II, chronic, diastolic I50.32 ; Iron deficiency anemia secondary to inadequate dietary iron intake D50.8 and Primary hypertension I10 [facility] [address] [place] [address] 07/26/2024 Sravan Besson Hypomagnesemia E83.4 2 ; Aortic stenosis, moderate I35.0 and CHF NYHA class II, chronic, diastolic I50.32 [facility] [address] [place] [address] 09/22/2024 Sravan Besson Chronic anemia D64.9 ; Hyponatremia E87.1 ; Essential hypertension I10 ; CHF NYHA class II, chronic, diastolic I50.32 and Moderate aortic stenosis I35.0 [facility] [address] [facility] [address] [place] [address] 11/12/2023 Sravan Besson [facility] [address] [facility] [address] [place] [address] 11/13/2023 Sravan Besson [facility] [address] [place] [address] 11/13/2023 Sravan Besson [facility] [address] [facility] [address] [place] [address] 11/14/2023 Sravan Besson [facility] [address] [place] [address] 11/19/2023 Sravan Besson [facility] [address] [place] [address] 01/07/2024 Sravan Besson [facility] [address] [place] [address] 01/31/2024 Sravan Besson Bullous pemphigoid L12.0 [facility] [address] [place] [address] 02/18/2024 Sravan Besson Essential hypertensi on I10 [facility] [address] [place] [address] 03/16/2024 Sravan Besson [facility] [address] [facility] [address] [place], [place] [address] 03/22/2024 Sravan Anderson [facility] [address] [place] [address] 06/23/2024 Sravan Anderson Generalized weakness R53.1 [facility] [address] [place] [address] 06/30/2024 Sravan Anderson [facility] [address] [place] [address] 07/28/2024 Sravan Anderson [facility] [address] [place] [address] 07/29/2024 Sravan Anderson Assessments Encounter Date Diagnosis (ICD Code) Assessment Notes Treatment Notes Treatment Clinical Notes Section Notes 11/10/2023 Essential hypertension (ICD-10 - I10) - Elevated/uncontrol led. Pt w/ a recent hospitalization in August for urgent hypertension; was discharged on Coreg 12.5 mg bid, aldactone, Lasix, and Irbesartan which were self discontinued due to non-tolerance). - Pt is currently on Amlodipine 10 mg daily and aldactone 25 mg. average SBP at home in 150s = will switch from amlodipine to Nifedipine 30 mg daily. will f/u in 3 weeks for BP monitoring. keep a log at home, pt agreeable = CMP ordered for today 11/10/2023 Type 2 diabetes mellitus with other circulatory complication, without long-term current use of insulin (ICD-10 - E11.59) - A1c ordered today along with UA 12/01/2023 Essential hypertension (ICD-10 - I10) Swelling is much better. BP slightly up.. stay off amlodipine... bump up nifedipine. Close f/u. 12/01/2023 Type 2 diabetes mellitus with other circulatory complication, without long-term current use of insulin (ICD-10 - E11.59) Overall stable... No changes in plan. Check labs at next visit. 12/29/2023 Acute bronchitis due to other specified organisms (ICD-10 - J20.8) - patient has had cough for 3 days, negative flu/covid. CXR unremarkable per patient report - without relief from amoxicillin, medrol dose pack, tessalon pearls - denies sick contacts - given severe persistent cough with near episodes of post-tussive emesis, there is concern for Pertussis PLAN - advised patient she can use honey to help soothe throat, can also take zinc/vitamin C - stop medrol dose pack, stop amoxicillin - start Z pack for treatment of suspected pertussies 01/21/2024 Skin rash (ICD-10 - R21) - patient states 3 weeks ago she noticed small vesicles on her chest and overnight they erupted into a generalized rash, she has tried benadryl and other topical ointments without relief - she denies fever, other systemic symptoms. Denies any hot tub exposure, without symptoms. No lesions on palms/soles. No recent travel - denies any new medications outside the antibiotics as listed above -on exam with sharply demarcated excoriated macules throughout, itchiness and pain accompany. Viral Exanthem, drug exanthem, scabies were all considered. At this point suspect folliculitis as primarily diagnosis PLAN - start mupirocin cream as directed - start augmentin x1 week - clean towels/sheets with bleach - follow up x1 week 01/28/2024 Bullous pemphigoid (ICD-10 - L12.0) Late chart entry:. Biopsy done as noted. Results returned and I reviewed them personally and communicated with patient personally today, 01/30/2024. Started patient on prednisone as noted in separate phone documentation. 01/28/2024 Excoriated rash (ICD-10 - R21) 01/31/2024 Bullous pemphigoid (ICD-10 - L12.0) 02/02/2024 Bullous pemphigoid (ICD-10 - L12.0) Biopsy-confirmed. Improving. Continue prednisone taper, currently on 40mg daily (completed 60mg daily x 3 days). Counseled on staying hydrated. Can continue to use antihistamine for itch if needed. Follow up in 1 week. 02/09/2024 Bullous pemphigoid (ICD-10 - L12.0) Continue prednisone 40mg. Will trial topical triamcinolone cream. F/u 2 weeks. 02/18/2024 Essential hypertension (ICD-10 - I10) 02/23/2024 Bullous pemphigoid (ICD-10 - L12.0) Given steroid induced myopathy will decrease to 20 mg Prednisone daily. Continue topical triamcinolone cream at this time. 02/23/2024 Adverse effect of glucocorticoids and synthetic analogues, initial encounter (ICD-10 - T38.0X5A) - Reports developing bilateral thigh muscle weakness, difficulty standing from seated position and needing assistance since starting 40 mg prednisone daily for Bullous Pemphigoid - if symptoms worsening may require discontinuation of prednisone - At this time, will decrease to 20 mg prednisone daily and continue to monitor for improvement in symptoms 03/29/2024 Acute bronchitis, unspecified organism (ICD-10 - J20.9) Patient presents with 4 days of congestion, fever, cough and sore throat. She has been around her sick and grandchildren. On exam, noted to have bilateral wheezes. Starting patient on doxycycline and will follow up in one week at her annual wellness visit. 04/05/2024 Other malaise (ICD-10 - R53.81) 04/05/2024 Other fatigue (ICD-10 - R53.83) 04/19/2024 Essential hypertension (ICD-10 - I10) 04/19/2024 Peripheral edema (ICD-10 - R60.0) Patient has been on double calcium channel blockade, we stopped amlodipine. Hopefully this will help swelling and I gave her prescription for Lasix. I will see her back in May to reevaluate labs and blood pressure at that point. Discussed as needed use of Lasix and avoiding salt. 06/23/2024 Rash (ICD-10 - R21) Rashes improving. Still has appointment scheduled and in [place] for dermatology. Biopsy reviewed. 06/23/2024 Type 2 diabetes mellitus with other circulatory complication, without long-term current use of insulin (ICD-10 - E11.59) - BMP and Hemoglobin A1c to monitor diabetes - For generalized weakness, patient was agreeable to referral to PT to work on strength 06/23/2024 Generalized weakness (ICD-10 - R53.1) 07/05/2024 Unspecified atrial fibrillation (ICD-10 - I48.91) Will check EKG in office today. PAtient wearing holter monitor and has cardiology follow up in a few weeks. Continue xarelto 20 mg nightly. 07/05/2024 Unspecified atrial flutter (ICD-10 - I48.92) 07/12/2024 CHF NYHA class II, chronic, diastolic (ICD-10 - I50.32) Euvolemic on exam today. Continue to hold lasix, will obtain repeat BMP today and have patient follow up in 2 weeks. Ok to continue spironolactone for now but if Cr peristently high will stop it. 07/12/2024 Aortic stenosis, moderate (ICD-10 - I35.0) Reasonable volume status at this point, watch overdiuresis, check labs as noted. Close follow-up in 2 weeks 07/26/2024 Hypomagnesemia (ICD-10 - E83.42) Will check serum magnesium levels today due to loop diuretic use and muscle cramping. 09/22/2024 Hyponatremia (ICD-10 - E87.1) Obtain labs today Stop Lexapro and Pepcid which may deplete sodium 09/22/2024 Chronic anemia (ICD-10 - D64.9) Obtain labs today Patient may need transfusion tomorrow 07/26/2024 Aortic stenosis, moderate (ICD-10 - I35.0) Following with [facility] cardiology / CT surgery to determine eligibilty for TVAR procedure to correct aortic stenosis. 09/22/2024 Essential hypertension (ICD-10 - I10) Well controlled today Continue current regimen 07/12/2024 Iron deficiency anemia secondary to inadequate dietary iron intake (ICD-10 - D50.8) Continue PO iron replacement. 07/26/2024 CHF NYHA class II, chronic, diastolic (ICD-10 - I50.32) Continue Lasix therapy, goal is twice daily as tolerated. Will obtain labs today to assess for electrolyte abnormalities and kidney function with Lasix use. 04/19/2024 Bullous pemphigoid (ICD-10 - L12.0) Although looks a lot better I certainly think a second opinion is reasonable given her age and the biopsy results. We will send her up to dermatology in [place] for evaluation 07/05/2024 Heart failure with preserved ejection fraction, unspecified HF chronicity (ICD-10 - I50.30) Euvolemic, on room air today. Continue lasix 40 mg daily. Will check BMP today. Stop metoprolol due to symptomatic bradycardia. Will check EKG. Contniue ibesartan. 06/23/2024 Generalized weakness (ICD-10 - R53.1) 04/05/2024 Pallor (ICD-10 - R23.1) 12/01/2023 Rash (ICD-10 - R21) OTC cortisone ointment. 11/10/2023 History of CVA (cerebrovascular accident) (ICD-10 - Z86.73) 11/10/2023 Acute bilateral low back pain with right-sided sciatica (ICD-10 - M54.41) - Onset 1.5 weeks ago, sharp/stabbing Low back pain limiting her gait currently on a wheelchair. No focal deficits, denies urinay incontinence. moderate to severe localized tenderness while palpating lower L-spinal processes along with sacroiliac joint. No red flag symptoms. No radiculoathy = Will proceed w/ Xray, suspect OA. No urgent need for MRI images given lack of neurolgoical involvement /no radiculopathy = Cont w/ OTC tyelnol and lidocaine patches for the meantime 04/05/2024 Essential hypertension (ICD-10 - I10) Given her history of anemia, iron deficiency, malaise/fatigue will check labs as above. I will review these labs with her in 1 week. Her blood pressure is elevated, her blood pressure list is not accurate. She and her have really no idea what she is taking. I am not sure if she still on 2 calcium channel blockers. They will bring all of their medicines in 1 week to reevaluate 12/01/2023 Sacroiliitis (ICD-10 - M46.1) Overall improved, increase mobility, has stopped pain medication. Feels well 07/05/2024 Cirrhosis of liver without ascites, unspecified hepatic cirrhosis type (ICD-10 - K74.60) Will refer to GI. Continue spironolactone and lasix. 07/12/2024 Primary hypertension (ICD-10 - I10) BP mildly elevated in office today. Will re-evaluate med regimen if persistently elevated at follow up 09/22/2024 CHF NYHA class II, chronic, diastolic (ICD-10 - I50.32) Patient follows with cardiology at [facility] 09/22/2024 Moderate aortic stenosis (ICD-10 - I35.0) Following with [facility], [facility] once hemoglobin and sodium are stable. 07/05/2024 Normocytic anemia (ICD-10 - D64.9) Received venofer inpatient and was discharged on ferrous sulfate. Continue ferrous sulfate every other day. Counseled on using miralax to prevent constipation. 12/01/2023 Screening for osteoporosis (ICD-10 - Z13.820) Given falls and age needs Dexa.. will f/u 11/10/2023 Other malaise (ICD-10 - R53.81) 11/10/2023 Other fatigue (ICD-10 - R53.83) 12/01/2023 Pruritus (ICD-10 - L29.9) ? etiology -- dex shot to help with sensation of itching.... benadryl otc 07/05/2024 Peripheral artery disease (ICD-10 - I73.9) started on plavix when hospitalized. Will continue, monitor for signs of bleeding. 07/05/2024 Hospital discharge follow-up (ICD-10 - Z09) Personally reviewed H&P and discharge summary as available from hospital discharge documentation. Reviewed pertinent labs and test done in the hospital. Personally reconciled medication. 12/01/2023 Healthcare maintenance (ICD-10 - Z00.00) Overall patient is up-to-date with colonoscopy, declines mammograms, out of range of Pap smear. DEXA scan will be ordered. Declined shots today. Will see back in the fall and do flu shot and discuss further. Has had flu and pneumonia vaccines. Excellent family support. Does not have a formal living will but is healthcare surrogate. Depression screening not done because of her dementia and mood disorder and memory loss. 11/10/2023 Vitamin B 12 deficiency (ICD-10 - E53.8) - will proceed w/ Vitamin B12 injections given low levels. 11/10/2023 Routine medical exam (ICD-10 - Z00.00) - declines shingrix - okay with prevnar 20 and Tdap however elects not to do them today. will encourage at the next visit - colonoscopy UTD. no longer wishes to do mammograms. screened out. - never a smoker 11/10/2023 Pressure injury of sacral region, unstageable (ICD-10 - L89.150) - pressure ulcers medially, near intergluteal cleft. appears clean w/o exudates. pt is sedentary at most times. advised to reposition to allow for wound healing and prevent further pressure ulcer formation = Home health ordered I performed a [id number] evaluation on this patient today, and determined that this patient cannot leave home without significant difficulty based on pain, immobility and ataxia issues. They qualify for home health evaluation for PT/OT evaluation as well as nursing care, home safety and follow-up medical care. Plan Of Treatment Pending Test Test Name Order Date X ray : Chest 08/19/2012 N-H pylori antibody 04/11/2008 Mammogram : Diagnostic 12/20/2010 Rapid Strep 06/01/2007 DEXA Hip and Spine - Screening 6 DEXA Hip and Spine - Screening 6 N-CMP 04/11/2008 EKG : In House 02/24/2007 Breast Biopsy, Stereotactic, Left Breast 05/01/2017 Breast Biopsy, Stereotactic, Right Breas t 01/15/2011 MRI : Head, Without Contrast 07/10/2016 Holter Monitor, 48 hour 07/10/2016 H-CMP 05/23/2014 H-CMP 12/21/2014 H-CMP 11/17/2008 H-CMP 02/05/2010 H-MAGNESIUM 07/12/2016 H-LIPID PANEL 12/21/2014 H-LIPID PANEL 02/05/2010 H-LIPID PANEL 05/23/2014 H-HGBA1C 12/21/2014 H-HGBA1C 05/23/2014 H-HGBA1C 02/05/2010 H-TSH 02/05/2010 H-TSH 05/23/2014 H-TSH 12/21/2014 H-MICROALBUMIN URINE 05/23/2014 C-CBC 11/30/2007 C-CMP 11/30/2007 C-CMP 08/21/2009 C-CMP 07/09/2010 C-LIPID PANEL 07/09/2010 C-LIPID PANEL 08/21/2009 C-LIPID PANEL 11/30/2007 C-TSH 11/30/2007 C-TSH 08/21/2009 C-TSH 07/09/2010 C-HGBA1C 07/09/2010 C-HGBA1C 08/21/2009 C-HGBA1C 11/30/2007 M-Complete Blood Count Auto Diff 019 M-Complete Blood Count Auto Diff 021 M-Comprehensive Metabolic Panel 07/21/19 M-Comprehensive Metabolic Panel 01/05/20 M-Hemoglobin A1C 01/04/2021 M-Hemoglobin A1C 07/20/2018 M-Lipid Panel 01/04/2021 M-Lipid Panel 07/20/2018 M-Thyroid Panel 07/20/2018 M-Thyroid Stimulating Hormone 01/04/2021 M-Vitamin B12 01/04/2021 M-Vitamin B12 07/20/2018 Physical Therapy : Gait training and cor e strengthening 06/23/2024 Future Test Test Name Order Date H-CBC with AUTO DIFF 03/11/2017 H-VITAMIN B12 03/11/2017 H-CMP 03/11/2017 H-MAGNESIUM 03/11/2017 H-LIPID PANEL 03/11/2017 H-TSH 03/11/2017 M-Vitamin B12 08/26/2023 Insurance Providers Payer Name Payer Address Payer Phone Subscriber Number Group Number Insured Name Patient Relationship to Insured Coverage Start Date Coverage End Date [place] [address] [address] [id number] Yuki Barraza Self - patient is the insured [facility] [address] [place] [address] [phone] [id number] Yuki Barraza Self - patient is the insured [email or web address] [address] [place] [address] [facility] Yuki Barraza Self - patient is the insured Medications Administered Medication Instructions Date of Administration Dosage Notes Cyanocobalamin/B-12 Pt's Own Medication 08/03/2012 lot # [id number] exp jan 02 Cyanocobalamin/B-12 Pt's Own Medication 12/01/2012 Dexamethasone 4mg Injection 11/05/2021 4 mg Kenalog 10/31/2012 1 mL Ceftriaxone 500 10/31/2012 500 mg Dexamethasone 4mg Injection 12/01/2023 4 mg Medical (General) History Medical History History ICD Code hypertension hypothyroidism hormone replacement therapy Esophageal reflux hypercholestrolemia type II diabetes fibromyalgia asthma urinary retention A fib back surgery x4 colonoscopy and EGD January [id number] polyps - colonoscopy in 07/07 with isolated tubular adenoma polyp and mild diverticulitis Normal DEXA on 04/06 - Repeated 4 with mild osteopenia breast mass with negative st ereotactic biopsy in May 2017 - normal mammogram 06/10 Covid 19 Heart Failure 2024 Surgical History Surgery Date(Month/Year) cholecystectomy Hysterectomy rotator cuff tear repair bilateral carpal tunnel release rt wrist rt Knee-meniscus repair Incisional Hernia repair appendectomy left knee replacement pulmonary vein ablation spur removal -lower back spinal fusion-low back breast needle bx-rt breast benign Back surgery x 2 2013 Interstin iCon implant 2016 Medtronic stimulator removed 09/2017 Colonoscopy 06/2018 cataract surgery-bilateral eyes 01/2019 Heart Cath 09/20/2024 Hospitalization History Reason Date(Month/Year) [facility] 08/2016 [facility]- Heart Failure 07/13 [facility] 07/2023 [facility] 01/2023 Dehydration 06/2021 Covid 04/2021 kidney infection 02/2020 -subdural hematoma 07/2016 all above surgeries CVA 1992 Heart-afib GI bleed
[2024-09-24 11:32] LABS: Hematocrit 23.5 % (37.0-47.0); Hemoglobin 7.1 g/dL (12.2-16.2)
== END 2024-09-24 16:01 | disposition home or self-care (01) ==
LOC: INF 11:10
PROVIDERS: PCP Internal Medicine Adolescent Medicine; Visit Provider Internal Medicine Adolescent Medicine
DX: D64.9 Anemia, unspecified (principal)
CPT/HCPCS: 36430; 85014; 85018; 86850; P9016

== ENCOUNTER 2025-03-14 13:13 | Outpatient (CLI) | payer MEDICARE, BC, SELFPAY ==
--- OUTSIDE RECORDS SUMMARY | 2024-10-25 12:16 | XMS_ITS | Encounter Summary ---
Author Organization [facility] Address [address] [place] [address] Care Team Providers Care Strategic Advisor Name Role Phone Sravan Anderson MD Primary Care Provider [phone] Encounter Details Date Type Department Care Team (Late st Contact Info) Description 10/25/2024 1:16 PM EDT Hospital Encounter [facility] PULMONARY & CRITICAL CARE MEDICINE [address] [place] [phone] Social History Tobacco Use Types Packs/Day Years Used Date Smoking Tobacco: Never Passive Smoke Exposure: Never Smokeless Tobacco: Never Alcohol Use Standard Drinks/Week Comments Never 0 (1 standard drink = 0.6 oz pur e alcohol) [facility] Utilities Answer Date Recorded In the past 12 months has [employer] electric, gas, oil, or water company threatened to shut off services in your home? No 12/28/2024 AUDIT-C Answer Date Recorded Q1: How often do you have a drink containing alcohol? Never 12/28/2024 Q2: How many drinks containi ng alcohol do you have on a typical day when you are drinking? Patient does not drink Q3: How often do you have si x or more drinks on one occasion? Never 12/28/2024 Overall Financial Resource Strain (CARDIA) Answe r Date Recorded How hard is it for you to pa y for the very basics like food, housing, medical care, and heating? Not hard at all 12/28/2024 [facility] Occupat ional Health - Occupational Stress Questionnaire Answer Date Recorded Do you feel stress - tense, restless, nervous, or anxious, or unable to sleep at night because your mind is troubled all the time - these days? Rather much 12/28/2024 Exercise Vital Sign Answer Date Recorde d On average, how many days pe r week do you engage in moderate to strenuous exercise (like a brisk walk)? 0 days 12/28/2024 On average, how many minutes do you engage in exercise at this level? 0 min 12/28/2024 Hunger Vital Sign Answer Date Recorded Within the past 12 months, y ou worried that your food would run out before you got the money to buy more. Never true 12/29/19 25 Within the past 12 months, t he food you bought just didn't last and you didn't have money to get more. Never true 12/28/2024 PRAPARE - Transportation Answer Date Re corded In the past 12 months, has l ack of transportation kept you from medical appointments or from getting medications? No 12/2024 In the past 12 months, has l ack of transportation kept you from meetings, work, or from getting things needed for daily living? No 12/28/2024 Abuse Screen Answer Date Recorded Feels Unsafe at Home or Work/School no 12/28/2024 Feels Threatened by Someone no 12/2024 Does Anyone Try to Keep You From Having Contact with Others or Doing Things Outside Your Home? no 12/28/2024 Physical Signs of Abuse Present no 12/28/2024 Housing Stability Answer Date Recorded Current Living Arrangements home 12/2024 Potentially Unsafe Housing Conditions none 12/28/2024 Family and Community Support Answer Jordy e Recorded If for any reason you need h elp with day-to-day activities such as bathing, preparing meals, shopping, managing finances, etc., do you get the help you need? I get all the help I need 12/28/2024 How often do you feel lonely or isolated from those around you? Never 12/28/2024 Employment Answer Date Recorded Do you want help finding or keeping work or a job? I do not need or want help 12/28/2024 Disabilities Answer Date Recorded Difficulty Concentrating, Remembering or Making Decisions no 12/28/2024 Difficulty Managing Errands Independently yes 12/28/2024 Education Answer Date Recorded Do you want help with school or training? 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 Never 12/28/2024 2:42 PM MONSERRATT Sarika Ellis RN Q2: How many drinks containing alcohol do you have on a typical day when you are drinking? Patient does not drink 12/28/2024 2:42 PM Sarika Tomlin RN Q3: How often do you have six or more drinks on one occasion? Never 12/28/2024 2:42 PM Sarika Tomlin RN * Over the past 2 weeks, how often have you been bothered by any of the following problems? Question Answer Date of Assessment Author Patient Health Questionnaire -2 Score 0 12/28/2024 2:43 PM Sarika Tomlin RN * Question Answer Date of Assessment Author 1. Wish to be (Past 1 Month) No 12/27/2024 7:28 AM Sarah De La Garza RN 2. Non-Specific Active Suici ricky Thoughts (Past 1 Month) No 12/27/2024 7:28 AM Dre De La Garza RN * Calculated C-SSRS Risk Score (Lifetime/Recent) Answer Date of Assessment Author No Risk Indicated 12/27/2024 7:28 AM Sarah De La Garza RN * [place] Suicide Severity Rating Scale (Screener/Recent Self-Report) Question Answer Date of Assessment Author 6. Suicidal Behavior (Lifetime) No 7:28 AM Sarah De La Garza RN * Question Answer Date of Assessment Author Little interest or pleasure in doing things Not at all 12/28/2024 2:43 PM EDT Sarika Ellis RN Feeling down, depressed, or hopeless Not at all 12/28/2024 2:43 PM EDT Sarika Ellis RN documented as of this encounter Plan of Treatment Upcoming Encounters Date Type Department Care Team (Late st Contact Info) Description 03/28/2025 3:30 PM EST Office Visit [facility] HEMATOLOGY & ONCOLOGY [address] [facility] [address] [place] [phone] Griselda Mccormack MD [address] [facility] [address] [place] [address] 04/07/2025 3:00 PM EST Office Visit [facility] CARDIOTHORACIC SURGERY [address] [facility] [address] [place] [phone] Beryl Borrero APRN [address] [facility] [address] [place] [address] 04/29/2025 2:45 PM EST Office Visit [facility] CARDIOLOGY [address] [facility] [address] [place] [phone] Julien Lilly MD [address] [facility] [address] [place], [place] [id number] 11/03/2025 2:00 PM EDT Office Visit [facility] CARDIOLOGY [address] [facility] [address] [place] [phone] Domonique Alejandre MD [address] [facility] [address] [place], [place] [phone] documented as of this encounter Procedures Procedure Name Priority Date/Time Associated Diagnosis Comments XR CHEST PA AND LATERAL Routine 10/25/2024 1:17 PM EDT Aortic stenosis, severe Chronic heart failure with preserved ejection fraction (HFpEF) PAF (paroxysmal atrial fibrillation) documented in this encounter Results * XR Chest PA & Lateral (10/25/2024 1:17 PM EDT) Anatomical Region Laterality Modality Body, Chest N/A Radiographic Flavia ging Narrative 10/25/2024 3:34 PM EDT Yuki Barraza [id number] 10/25/2024 Chest X-Ray PA & Lateral Indication: Shortness of breath Comparison: Chest x-ray from May 2021 Findings: Lungs are clear. No effusions. Heart and mediastinum unremarkable. No pneumothorax. Interpretation: No acute cardiopulmonary findings Eldon Mcdonald DO Please note that portions of this note may have been completed with a voice recognition program. Efforts were made to edit the dictations, but occasionally words are mistranscribed. Castillo Mcdonald DO IMG DIAGNOSTIC IMAG ING ORDERABLES Final Result documented in this encounter Visit Diagnoses Not on filedocumented in this encounter Care Teams Strategic Advisor Relationship Specialty Start Date End Date Sravan Anderson MD [address] [facility] [address] [place] [address] PCP - General Adolescent Medicine 06/09/21 documented as of this encounter
--- OUTSIDE RECORDS SUMMARY | 2024-12-27 09:20 | XMS_ITS | Encounter Summary ---
Author Organization [facility] Address [address] [place] [address] Care Team Providers Care Load Checker Name Role Phone Sravan Anderson MD Primary Care Provider [phone] Reason for Visit * Auth/Cert Specialty Diagnoses / Procedures Referred By Contac t Referred To Contact Diagnoses Aortic stenosis, severe Procedures TX ECHO TRANSESOPHAG R-T 2D W/PRB IMG ACQUISJ I&R TRANSCATHETER AORTIC VALVE REPLACEMENT TRANSESOPHAGEAL ECHOCARDIOGRAM Referral ID Status Reason Start Date Expiration Date Visits Re quested Visits Authorized [id number] 1 1 Encounter Details Date Type Department Care Team (Late st Contact Info) Description 12/27/2024 10:20 AM EDT Ancillary Procedure [address] [phone] Social History Tobacco Use Types Packs/Day Years Used Date Smoking Tobacco: Never Passive Smoke Exposure: Never Smokeless Tobacco: Never Alcohol Use Standard Drinks/Week Comments Never 0 (1 standard drink = 0.6 oz pur e alcohol) [facility] Utilities Answer Date Recorded In the past 12 months has [employer] electric, gas, oil, or water [employer] threatened to shut off services in your [...] and heating? 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 Wish to be (Past 1 Month) No 12/27/2024 7:28 AM Sarah De La Garza RN 2. Non-Specific Active Suici ricky Thoughts (Past 1 Month) No 12/27/2024 7:28 AM EDT Dre Brantley RN * Calculated C-SSRS Risk Score (Lifetime/Recent) Answer Date of Assessment Author No Risk Indicated 12/27/2024 7:28 AM Sarah De La Garza RN * [place] Suicide Severity Rating Scale (Screener/Recent Self-Report) Question Answer Date of Assessment Author 6. Suicidal Behavior (Lifetime) No 7:28 AM Sarah De La Garza RN documented as of this encounter Plan of Treatment Upcoming Encounters Date Type Department Care Team (Late st Contact Info) Description 03/28/2025 3:30 PM EST Office Visit [facility] HEMATOLOGY & ONCOLOGY [address] [facility] [address] [place] [phone] Griselda Mccormack MD [address] [facility] [address] [place] [address] 04/07/2025 3:00 PM EST Office Visit [facility] CARDIOTHORACIC SURGERY [address] [facility] [address] [place] [address] Beryl Borrero APRN [address] [place] [address] 04/29/2025 2:45 PM EST Office Visit [facility] CARDIOLOGY [address] [facility] [address] [place] [phone] Julien Lilly MD [address] [facility] [address] [place] [address] 11/03/2025 2:00 PM EDT Office Visit [facility] CARDIOLOGY [address] [facility] [address] [place] [address] Domonique Alejandre MD [address] [facility] [address] [place], [place] [phone] documented as of this encounter Procedures Procedure Name Priority Date/Time Associated Diagnosis Comments INTRA-OP STRUCTURAL HEART JYOTSNA (CARDIOLOGY READ) Routine 12/27/2024 10:11 AM EDT documented in this encounter Results * Intra-Op Structural Heart JYOTSNA (Cardiology Read) (12/27/2024 10:11 AM EDT) [facility] Echo EF Estimated 70.0 % LVOT diam 1.8 cm LV V1 VTI 22.9 cm Ao mean PG 8 mmHg Ao V2 VTI 54.0 cm VERNON(I,D) 1.2 cm2 Anatomical Region Laterality Modality Ultrasound Narrative 01/08/2025 4:04 PM EDT Left ventricular wall thickness is consistent with mild concentric hypertrophy. Following placement of a 20 mm KIMBERLYN 3 pericardial patch, a trivial paravalvular leak seen beneath the anterior mitral leaflet and the right coronary sinus. The mean aortic valve gradient is 8 mmHg. Calculated aortic valve area is 1.2 cm . Mild to moderate mitral valve regurgitation is present. This report is being generated solely for the purposes of the registry. There will be no charge for this interpretation. Left Ventricle Normal left ventricular cavity size noted. Left ventricular wall thickness is consistent with mild concentric hypertrophy. All left ventricular wall segments contract normally. Left ventricular diastolic function was not assessed. Right Ventricle Normal right ventricular cavity size and systolic function noted. Left Atrium The left atrial cavity is mildly dilated. Right Atrium Normal right atrial cavity size noted. Mitral Valve Mild mitral annular calcification is present. There is mild calcification of the mitral valve anterior and posterior leaflet(s). Mild to moderate mitral valve regurgitation is present. Tricuspid Valve The tricuspid valve is normal in structure. Mild tricuspid valve regurgitation is present. Aortic Valve Preprocedure: Trileaflet valve with severe aortic stenosis with trace insufficiency. Postprocedure following placement of a 20 mm KIMBERLYN 3 pericardial patch, a trivial paravalvular leak seen beneath the anterior mitral leaflet and the right coronary sinus. The mean aortic valve gradient is 8 mmHg. Calculated aortic valve area is 1.2 cm . Pulmonic Valve The pulmonic valve is structurally normal. There is no significant pulmonic valve regurgitation present. Pericardium There is no evidence of pericardial effusion. . 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 JYOTSNA Procedure Details A transesophageal echocardiogram was performed for guidance of a transcatheter intracardiac or great vessel(s): TAVR. Informed consent for Transesophageal Echocardiogram, and use of contrast as needed, was obtained prior to the procedure. Patient was noted to be in a fasting state, with a peripheral IV in place. A bite block was placed for probe protection. Moderate sedation was utilized. An adult multi-frequency, multiplane transesophageal echocardiographic endoscope was inserted and manipulated in the standard fashion to achieve multiplane views. Transesophageal probe was able to be passed without difficulty. Usual basal, mid-esophageal, transgastric, and aortic views were obtained. The patient's vital signs, including blood pressure, heart rate, pulse oximetry, and cardiac rhythm were monitored throughout the procedure. Vitals signs remained stable throughout the study. The patient tolerated the procedure without evidence of oropharyngeal or esophageal trauma. us Julia Wrad MD CV ECHO ORDERABLES Sasha romero Result documented in this encounter Visit Diagnoses Not on filedocumented in this encounter Care Teams Load Checker Relationship Specialty Start Date End Date Sravan Anderson MD [address] [place] [facility] [address] [place] [address] PCP - General Adolescent Medicine 06/09/21 documented as of this encounter
--- OUTSIDE RECORDS SUMMARY | 2025-01-26 13:45 | XMS_ITS | Encounter Summary ---
[facility] Organization [facility] Address [address] [place] [address] Care Team Providers [employer] Supervisor Name Role Phone Sravan Anderson MD Primary Care Provider [phone] Reason for Visit * Reason Comments Aortic stenosis, severe Encounter Details Date Type Department Care Team (Latest Contact Info) Description 01/26/2025 2:45 PM EDT Office Visit [facility] CARDIOLOGY [address] 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 Not on file Not on vivek e Not on file documented as of this encounter Last Filed Vital Signs Vital Sign Reading Time Taken Comments Blood Pressure 138/86 01/26/2025 2:28 PM EDT Pulse 72 01/26/2025 2:28 PM EDT Temperature - - Respiratory Rate - - Oxygen Saturation 95% 01/26/2025 2:28 PM EDT Inhaled Oxygen Concentration - - Weight 81 kg (178 lb 8 oz) 01/26/2025 2:28 PM ED T Height 154.9 cm (5' 1 ) 01/26/2025 2:28 PM EDT Body Mass Index 33.73 01/26/2025 2:28 PM EDT documented in this encounter Progress Notes * Julien Lilly MD - 01/26/2025 2:45 PM EDTAssociated Problem(s): S/p TAVR (transcatheter aortic valve replacement), bioprosthetic S/p TAVR 12/2024. Reports dyspnea significantly improved. Current ongoing symptoms of fatigue/weakness most likely due to anemia Will follow-up on 30-day post TAVR echo upcoming in the next few days Orders: CBC (No Diff); Future Comprehensive Metabolic Panel; Future * Julien Lilly MD - 01/26/2025 2:45 PM EDTAssociated Problem(s): Aortic valve stenosis s/p TAVR 12/27/2024 S/p TAVR 12/2024. Reports dyspnea significantly improved. Current ongoing symptoms of fatigue/weakness most likely due to anemia Will follow-up on 30-day post TAVR echo upcoming in the next few days Orders: CBC (No Diff); Future Comprehensive Metabolic Panel; Future * Julien Lilly MD - 01/26/2025 2:45 PM EDTAssociated Problem(s): Iron deficiency anemia Had iron infusions before TAVR which was over a month ago. Appears very pale today. Denies any clinical signs of bleeding. Denies hematemesis, hematuria, melena or hematochezia. Has seen hematology before for iron infusions and was diagnosed with chronic blood loss anemia but no source has been identified to date Checking iron profile today. Will refer back to hematology. May need scope Advised that she stop all NSAIDs which she is using daily for pain. Advised Tylenol only. Has a very poor appetite which likely exacerbates iron deficiency. May need appetite stimulant but will defer to primary care Orders: Iron Profile; Future Ferritin; Future * Julien Lilly MD - 01/26/2025 2:45 PM EDTAssociated Problem(s): PAF (paroxysmal atrial fibrillation) [id number] with previous history of stroke (2023). Stable and asymptomatic. Regular pulse on exam suggest sinus rhythm Continue Eliquis If she continues to have problems with anemia, I think she will need to be considered for Watchman.Also has history of traumatic subdural hematoma * Julien Lilly MD - 01/26/2025 2:45 PM EDTAssociated Problem(s): Coronary artery disease involving y[place]ut[place] coronary artery of y[place]utat heart with angina pectoris Mild CAC on PET attenuation images, perfusion normal. Coronary angiography showed no significant disease Asymptomatic. Says she does not take aspirin because of allergy Continue Eliquis monotherapy and statin * Julien Lilly MD - 01/26/2025 2:45 PM EDTAssociated Problem(s): Chronic heart failure with preserved ejection fraction (HFpEF) EF normal, grade II diastolic dysfunction. Euvolemic and compensated. Continue Lasix as needed * Julien Lilly MD - 01/26/2025 2:45 PM EDT [facility] Cardiology Office Follow Up Note Yuki Barraza [id number] 01/26/2025 Primary Care Provider: Sravan Anderson MD Chief Complaint Patient presents with Aortic stenosis, severe Subjective History of Present Illness: History of Present Illness The patient is a 79-year-old female with severe aortic stenosis, now status post TAVR, HFpEF, paroxysmal AFib, chronic hyponatremia, and anemia, presenting for follow-up after TAVR. She reports marked, immediate improvement in her breathing following the TAVR procedure, which was performed in early December 2024. However, over the past 3 weeks, she has experienced increased fatigue and weakness, to the point where she is unable to reach her kitchen table. She does not experience any chest pain. Her last iron infusion was prior to her surgery, and she has not had any blood work done since her hospital discharge. She is scheduled for a 30-day echo in 2 days. She reports no leg swelling or difficulty breathing when lying flat on her back. She does not monitor her blood pressure at home but believes it to be low. She has not discussed these issues with her primary care physician. She reports no palpitations. She experiences mild back pain but has not had any recent falls or head injuries. She is currently taking Eliquis twice daily and is not on aspirin due to an allergy. She has a decreased appetite and reports that food lacks taste. She has not been evaluated for potential blood loss. She reports no presence of blood in her stool, urine, or cough. SOCIAL HISTORY Exercise: Walking around the house Diet: Reports lack of appetite and inability to taste food Past Cardiac History and Testin. Paroxysmal atrial fibrillation -- s/p remote PVI w/ Dr. Barnes, 2. H/o stroke 2023 3. HFpEF, dx June 2024 at [facility] --TTE 06/12: EF 55%, mild septal hypertrophy, diastolic dysfunction, no AAS, mild MR, RVSP 35-45 -- Echo 08/13: EF 69%, grade 2 DD, mild septal asymmetric hypertrophy, sigmoid septum. Normal RV. Mild LA dilation. Moderate to severe , mild MR/TR 4. Aortic stenosis -- Mod-evere by echo 08/13 (VERNON 0.8 cm??, V-max 3.9 m/s. Mean gradient 33) -- Stress PET 08/2024: Low risk, normal perfusion. Minimal CAC. -- LHC 09/2024: LVOT/aortic valve gradient 40 mmHg. EDP 20. Normal coronary arteries -- s/p 20 mm Luque KIMBERLYN III TAVR 12/27/2024 ([facility]) -- JYOTSNA 12/2024: EF >55%. Moderate to severe AAS, trace AI. Slight MVP with mild to moderate MR. Small pericardial effusion. Postprocedure exam shows a well- seated bioprosthetic valve with small paravalvular leak near the anterior mitral valve leaflet. Mean PG 8. Effusion stable -- Limited TTE 12/2024: EF 53%. TAVR valve present, no leak. Mean gradient 15. Trivial pericardial effusion 5. HTN 6. HLD 7. DM 8. Dementia 9. Syncope, dehydration/hypovolemia, 2021 10. Traumatic subdural hematoma in 2016 11. CKD -- Cr2.2 in June 2024 Review of Systems: Review of Systems Constitutional: Positive for fatigue. Negative for diaphoresis, fever, unexpected weight gain and unexpected weight loss. Respiratory: Negative. Cardiovascular: Negative. Gastrointestinal: Negative. Musculoskeletal: Negative. Neurological: Positive for weakness. Negative for dizziness, seizures, syncope, speech difficulty and numbness. I have reviewed and/or updated the patient's past medical, past surgical, family, social history, problem list and allergies as appropriate. Current Outpatient Medications: amLODIPine (NORVASC) 5 MG tablet, Take 1 tablet by mouth Daily., Disp: 90 tablet, Rfl: 3 apixaban (ELIQUIS) 5 MG tablet tablet, Take 1 tablet by mouth 2 (Two) Times a Day., Disp: 180 tablet, Rfl: 3 carvedilol (COREG) 25 MG tablet, Take 1 tablet by mouth 2 (Two) Times a Day., Disp: 180 tablet, Rfl: 3 Cholecalciferol (Vitamin D3) 25 MCG capsule, Take 1 capsule by mouth Daily., Disp: , Rfl: Cyanocobalamin (Vitamin B-12) 5000 MCG tablet dispersible, Take 1 tablet by mouth Daily., Disp: , Rfl: donepezil (ARICEPT) 5 MG tablet, Take 1 tablet by mouth Every Night., Disp: , Rfl: furosemide (LASIX) 40 MG tablet, Take 1 tablet by mouth Daily As Needed (Swelling or Shortness of Breath)., Disp: , Rfl: levothyroxine sodium (TIROSINT) 100 MCG capsule, Take 88 mcg by mouth Every Morning., Disp: , Rfl: Magnesium 400 MG capsule, Take 400 mg by mouth 2 (Two) Times a Day., Disp: , Rfl: memantine (NAMENDA) 10 MG tablet, Take 1 tablet by mouth 2 (Two) Times a Day., Disp: , Rfl: pantoprazole (PROTONIX) 40 MG EC tablet, Take 1 tablet by mouth Daily., Disp: , Rfl: pravastatin (PRAVACHOL) 40 MG tablet, Take 2 tablets by mouth Daily., Disp: , Rfl: QUEtiapine XR (SEROquel XR) 200 MG 24 hr tablet, Take 2 tablets by mouth Every Night., Disp: , Rfl: sitaGLIPtin-metFORMIN (Janumet) 50-1000 MG per tablet, Take 1 tablet by mouth 2 (Two) Times a Day With Meals., Disp: , Rfl: No current facility-administered medications for this visit. Facility-Administered Medications Ordered in Other Visits: Chlorhexidine Gluconate Cloth 2 % pads 1 Application, 1 Application, Topical, Q12H PRN, Marsha Walker APRN Objective Vitals: Vitals: 01/26/25 1428 BP: 138/86 BP Location: Left arm Patient Position: Sitting Cuff Size: Adult Pulse: 72 SpO2: 95% Weight: 81 kg (178 lb 8 oz) Height: 154.9 cm (61 ) Physical Exam: Vitals reviewed. Constitutional: Appearance: Not in distress. Chronically ill-appearing. Cardiovascular: Normal rate. Regular rhythm. Normal S1. Normal S2. Murmurs: There is no murmur. No gallop. No click. No rub. Pulses: Intact distal pulses. Edema: Peripheral edema absent. Skin: General: Skin is warm and dry. Coloration: Skin is pale. Results Review: I reviewed the patient's new clinical results. I reviewed the patient's new imaging results and agree with the interpretation. I reviewed the patient's other test results and agree with the interpretation Procedures Most Recent Labs: Basic Metabolic Panel (12/28/2024 03:52) CBC (No Diff) (12/28/2024 03:52) Assessment & Plan S/p TAVR (transcatheter aortic valve replacement), bioprosthetic Aortic stenosis, severe S/p TAVR 12/2024. Reports dyspnea significantly improved. Current ongoing symptoms of fatigue/weakness most likely due to anemia Will follow-up on 30-day post TAVR echo upcoming in the next few days Orders: CBC (No Diff); Future Comprehensive Metabolic Panel; Future Iron deficiency anemia due to chronic blood loss Had iron infusions before TAVR which was over a month ago. Appears very pale today. Denies any clinical signs of bleeding. Denies hematemesis, hematuria, melena or hematochezia. Has seen hematology before for iron infusions and was diagnosed with chronic blood loss anemia but no source has been identified to date Checking iron profile today. Will refer back to hematology. May need scope Advised that she stop all NSAIDs which she is using daily for pain. Advised Tylenol only. Has a very poor appetite which likely exacerbates iron deficiency. May need appetite stimulant but will defer to primary care Orders: Iron Profile; Future Ferritin; Future PAF (paroxysmal atrial fibrillation) [id number] with previous history of stroke (2023). Stable and asymptomatic. Regular pulse on exam suggest sinus rhythm Continue Eliquis If she continues to have problems with anemia, I think she will need to be considered for Watchman.Also has history of traumatic subdural hematoma Coronary artery disease involving [place] coronary artery of y[place]at heart with angina pectoris Mild CAC on PET attenuation images, perfusion normal. Coronary angiography showed no significant disease Asymptomatic. Says she does not take aspirin because of allergy Continue Eliquis monotherapy and statin Chronic heart failure with preserved ejection fraction (HFpEF) EF normal, grade II diastolic dysfunction. Euvolemic and compensated. Continue Lasix as needed Plan Preventative Cardiology: Tobacco Cessation: N/A Obstructive Sleep Apnea Screening: Deffered Advanced Care Planning ACP discussion was held with the patient during this visit. Patient does not have an advance directive, information provided. Follow Up: Return in about 3 months (around 04/28/2025). Patient or patient senior account representative verbalized consent for the use of Ambient Listening during the visit with Julien Lilly MD for chart documentation. 01/26/2025 15:48 EDT I spent 42 minutes evaluating, treating, counseling, coordinating patient care, reviewing old/outside records, independently reviewing imaging/telemetry, and documenting. This excludes time spent on separately billable services and procedures. Electronically signed by Julien Lilly MD, 01/26/25, 3:51 PM EDT. documented in this encounter Plan of Treatment Upcoming Encounters Date Type Department Care Team (Late st Contact Info) Description 03/28/2025 3:30 PM EST Office Visit [facility] HEMATOLOGY & ONCOLOGY [address] [facility] [address] [place] [phone] Griselda Mccormack MD [address] [facility] [address] [place] [address] 04/07/2025 3:00 PM EST Office Visit [facility] CARDIOTHORACIC SURGERY [address] [facility] [address] [place] [address] Beryl Borrero APRN [address] [facility] [address] [place] [address] 04/29/2025 2:45 PM EST Office Visit [facility] CARDIOLOGY [address] [facility] [address] [place] [address] Julien Lilly MD [address] [facility] [address] [place], [place] [id number] 11/03/2025 2:00 PM EDT Office Visit [facility] CARDIOLOGY [address] [facility] [address] [place] [phone] Domonique Alejandre MD [address] [facility] [address] [place] [address] documented as of this encounter Results * (ABNORMAL) Ferritin (01/26/2025 3:48 PM EDT) Ferritin 176.00(H) 13.00 - 150.00 ng/mL 01/26/2025 11:44 PM EDT [facility] Blood Venipuncture / Unknown 01/26/2025 3:48 PM EDT 01/26/2025 3:57 PM EDT Narrative [facility] - 01/26/2025 11:44 PM EDT Results may be falsely decreased if patient taking Biotin. us Julien Lilly MD LAB BLOOD ORDERABLES Final Resu lt [facility]
[address] [place] [address], * Iron Profile (01/26/2025 3:48 PM EDT) Iron 79 37 - 145 mcg/dL 01/26/2025 11:40 PM EDT [facility] Iron Saturation (TSAT) 23 20 - 50 % 01/26/2025 11:40 PM EDT [facility] Transferrin 229 200 - 360 mg/dL 01/26/2025 11:40 PM EDT [facility] TIBC 341 298 - 536 mcg/dL 01/26/2025 11:40 PM EDT [facility] Blood Venipuncture / Unknown 01/26/2025 3:48 PM EDT 01/26/2025 3:57 PM EDT us Julien Lilly MD LAB BLOOD ORDERABLES Final Resu lt [facility]
[address] [place] [address], * (ABNORMAL) Comprehensive Metabolic Panel (01/26/2025 3:48 PM EDT) Glucose 166(H) 65 - 99 mg/dL 01/26/2025 11:40 PM EDT [facility] BUN 15.0 8.0 - 23.0 mg/dL 01/26/2025 11:40 PM EDT [facility] Creatinine 1.27(H) 0.57 - 1.00 mg/dL 01/26/2025 11:40 PM EDT [facility] Sodium 136 136 - 145 mmol/L 01/26/2025 11:40 PM EDT [facility] Potassium 4.8 3.5 - 5.2 mmol/L 01/26/2025 11:40 PM EDT [facility] Chloride 101 98 - 107 mmol/L 01/26/2025 11:40 PM EDT [facility] CO2 23.6 22.0 - 29.0 mmol/L 01/26/2025 11:40 PM EDT [facility] Calcium 9.7 8.6 - 10.5 mg/dL 01/26/2025 11:40 PM EDT [facility] Total Protein 7.7 6.0 - 8.5 g/dL 01/26/2025 11:40 PM EDT [facility] Albumin 4.2 3.5 - 5.2 g/dL 01/26/2025 11:40 PM EDT [facility] ALT (SGPT) 13 1 - 33 U/L 01/26/2025 11:40 PM EDT [facility] AST (SGOT) 21 1 - 32 U/L 01/26/2025 11:40 PM EDT [facility] Alkaline Phosphatase 92 39 - 117 U/L 01/26/2025 11:40 PM EDT [facility] Total Bilirubin 0.3 0.0 - 1.2 mg/dL 01/26/2025 11:40 PM EDT [facility] Globulin 3.5 gm/dL 01/26/2025 11:40 PM EDT [facility] A/G Ratio 1.2 g/dL 01/26/2025 11:40 PM EDT [facility] BUN/Creatinine Ratio 11.8 7.0 - 25.0 01/26/2025 11:40 PM EDT [facility] Anion Gap 11.4 5.0 - 15.0 mmol/L 01/26/2025 11:40 PM EDT [facility] eGFR 43.6(L) >60.0 mL/min/1.7 3 01/26/2025 11:40 PM EDT [facility] Blood Venipuncture / Unknown 01/26/2025 3:48 PM EDT 01/26/2025 3:57 PM EDT [facility] - 01/26/2025 11:40 PM EDT GFR Categories in Chronic Kidney Disease (CKD) GFR Category GFR (mL/min/1.73) Interpretation G1 90 or greater Normal or high (1) G2 60-89 Mild decrease (1) G3a 45-59 Mild to moderate decrease G3b 30-44 Moderate to severe decrease G4 15-29 Severe decrease G5 14 or less Kidney failure (1)In the absence of evidence of kidney disease, neither GFR category G1 or G2 fulfill the criteria for CKD. eGFR calculation 2020 CKD-EPI creatinine equation, which does not include race as a factor us Julien Lilly MD LAB BLOOD ORDERABLES Final Resu lt [facility]
[address] [place] [address], * (ABNORMAL) CBC (No Diff) (01/26/2025 3:48 PM EDT) WBC 5.09 3.40 - 10.80 10*3/mm3 01/26/2025 11:14 PM EDT [facility] RBC 3.78 3.77 - 5.28 10*6/mm3 01/26/2025 11:14 PM EDT [facility] Hemoglobin 11.5(L) 12.0 - 15.9 g/dL 01/26/2025 11:14 PM EDT [facility] Hematocrit 34.9 34.0 - 46.6 % 01/26/2025 11:14 PM EDT [facility] MCV 92.3 79.0 - 97.0 fL 01/26/2025 11:14 PM EDT [facility] MCH 30.4 26.6 - 33.0 pg 01/26/2025 11:14 PM EDT [facility] MCHC 33.0 31.5 - 35.7 g/dL 01/26/2025 11:14 PM EDT [facility] RDW 13.3 12.3 - 15.4 % 01/26/2025 11:14 PM EDT [facility] RDW-SD 43.8 37.0 - 54.0 fl 01/26/2025 11:14 PM EDT [facility] MPV 9.9 6.0 - 12.0 fL 01/26/2025 11:14 PM EDT [facility] Platelets 175 140 - 450 10*3/mm3 01/26/2025 11:14 PM EDT [facility] Blood Venipuncture / Unknown 01/26/2025 3:48 PM EDT 01/26/2025 3:57 PM EDT us Julien Lilly MD LAB BLOOD ORDERABLES Final Resu lt [facility]
[address] [place] [address], documented in this encounter Visit Diagnoses Diagnosis S/p TAVR (transcatheter aortic valve replacement), bioprosthetic- Primary Aortic stenosis, severe Iron deficiency anemia due to chronic blood loss Iron deficiency anemia secondary to blood loss (chronic) PAF (paroxysmal atrial fibrillation) Atrial fibrillation Coronary artery disease involving [place] coronary artery of [place] heart with angina pectoris Chronic heart failure with preserved ejection fraction (HFpEF) documented in this encounter Care Teams [employer] Supervisor Relationship Specialty Start Date End Date Sravan Anderson MD [address] [facility] [address] [place] [address] PCP - General Adolescent Medicine 06/09/21 documented as of this encounter
--- OUTSIDE RECORDS SUMMARY | 2025-01-26 14:50 | XMS_ITS | Encounter Summary ---
Author Organization [facility] ystem Address [address] [place] [address] Care Team Providers Care Claims Vice President Name Role Phone Sravan Anderson MD Primary Care Provider [phone] Encounter Details Date Type Department Care Team (Late st Contact Info) Description 01/26/2025 3:50 PM EDT Lab [facility] [place] [address] [facility] [address] [facility] [address] [place] [address] S/p TAVR (transcatheter aortic valve replacement), bioprosthetic; Iron deficiency anemia due to chronic blood loss Social History Tobacco Use Types Packs/Day Years Used Date Smoking Tobacco: Never Passive Smoke Exposure: Never Smokeless Tobacco: Never Alcohol Use Standard Drinks/Week Comments Never 0 (1 standard drink = 0.6 oz pur e alcohol) [facility] Utilities Answer Date Recorded In the past 12 months has [employer], gas, oil, or water [employer] threatened to shut off services in your [...] and heating? 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 [address] [place] [address] 04/07/2025 3:00 PM EST Office Visit [facility] CARDIOTHORACIC SURGERY [address] [facility] [address] [place] [phone] Beryl Borrero APRN [address] [facility] [address] [place] [address] 04/29/2025 2:45 PM EST Office Visit [facility] CARDIOLOGY [address] [facility] [address] [place] [phone] Julien Lilly MD [address] [facility] [address] [place] [address] 11/03/2025 2:00 PM EDT Office Visit [facility] CARDIOLOGY [address] [facility] [address] [place] [phone] Domonique Alejandre MD [address] [place] [address] documented as of this encounter Procedures Procedure Name Priority Date/Time Associated Diagnosis Comments IRON PROFILE Routine 01/26/2025 3:48 PM EDT Iron deficiency anemia due to chronic blood loss CBC (NO DIFF) Routine 01/26/2025 3:48 PM EDT S/p TAVR (transcatheter aortic valve replacement), bioprosthetic FERRITIN Routine 01/26/2025 3:48 PM EDT Iron deficiency anemia due to chronic blood loss COMPREHENSIVE METABOLIC PANEL Routine 01/26/2025 3:48 PM EDT S/p TAVR (transcatheter aortic valve replacement), bioprosthetic documented in this encounter Results * (ABNORMAL) Ferritin (01/26/2025 3:48 PM EDT) Ferritin 176.00(H) 13.00 - 150.00 ng/mL 01/26/2025 11:44 PM EDT [facility] Blood Venipuncture / Unknown 01/26/2025 3:48 PM EDT 01/26/2025 3:57 PM EDT Narrative [facility] - 01/26/2025 11:44 PM EDT Results may be falsely decreased if patient taking Biotin. us Julien Lilly MD LAB BLOOD ORDERABLES Final Resu lt [facility]
[address] [place] [address], * Iron Profile (01/26/2025 3:48 PM EDT) Iron 79 37 - 145 mcg/dL 01/26/2025 11:40 PM EDT [facility] Iron Saturation (TSAT) 23 20 - 50 % 01/26/2025 11:40 PM EDT [facility] Transferrin 229 200 - 360 mg/dL 01/26/2025 11:40 PM EDT [facility] TIBC 341 298 - 536 mcg/dL 01/26/2025 11:40 PM EDT [facility] Blood Venipuncture / Unknown 01/26/2025 3:48 PM EDT 01/26/2025 3:57 PM EDT us Julien Lilly MD LAB BLOOD ORDERABLES Final Resu lt [facility]
[address] [place] [address], * (ABNORMAL) Comprehensive Metabolic Panel (01/26/2025 3:48 PM EDT) Glucose 166(H) 65 - 99 mg/dL 01/26/2025 11:40 PM EDT [facility] BUN 15.0 8.0 - 23.0 mg/dL 01/26/2025 11:40 PM EDT [facility] Creatinine 1.27(H) 0.57 - 1.00 mg/dL 01/26/2025 11:40 PM EDT [facility] Sodium 136 136 - 145 mmol/L 01/26/2025 11:40 PM EDT [facility] Potassium 4.8 3.5 - 5.2 mmol/L 01/26/2025 11:40 PM EDT [facility] Chloride 101 98 - 107 mmol/L 01/26/2025 11:40 PM EDT [facility] CO2 23.6 22.0 - 29.0 mmol/L 01/26/2025 11:40 PM EDT [facility] Calcium 9.7 8.6 - 10.5 mg/dL 01/26/2025 11:40 PM EDT [facility] Total Protein 7.7 6.0 - 8.5 g/dL 01/26/2025 11:40 PM EDT [facility] Albumin 4.2 3.5 - 5.2 g/dL 01/26/2025 11:40 PM [facility] ALT (SGPT) 13 1 - 33 U/L 01/26/2025 11:40 PM [facility] AST (SGOT) 21 1 - 32 U/L 01/26/2025 11:40 PM [facility] Alkaline Phosphatase 92 39 - 117 U/L 01/26/2025 11:40 PM [facility] Total Bilirubin 0.3 0.0 - 1.2 mg/dL 01/26/2025 11:40 PM [facility] Globulin 3.5 gm/dL 01/26/2025 11:40 PM [facility] A/G Ratio 1.2 g/dL 01/26/2025 11:40 PM [facility] BUN/Creatinine Ratio 11.8 7.0 - 25.0 01/26/2025 11:40 PM [facility] Anion Gap 11.4 5.0 - 15.0 mmol/L 01/26/2025 11:40 PM [facility] eGFR 43.6(L) >60.0 mL/min/1.7 3 01/26/2025 11:40 PM [facility] Blood Venipuncture / Unknown 01/26/2025 3:48 PM EDT 01/26/2025 3:57 PM T [facility] LABORATORY - 01/26/2025 11:40 PM EDT [...] does not include race as a factor Julien Lilly MD LAB BLOOD ORDERABLES Final Resu lt [facility]
[address] [place] [address], * (ABNORMAL) CBC (No Diff) (01/26/2025 3:48 PM EDT) WBC 5.09 3.40 - 10.80 10*3/mm3 01/26/2025 11:14 PM EDT [facility] RBC 3.78 3.77 - 5.28 10*6/mm3 01/26/2025 11:14 PM EDT [facility] Hemoglobin 11.5(L) 12.0 - 15.9 g/dL 01/26/2025 11:14 PM EDT [facility] Hematocrit 34.9 34.0 - 46.6 % 01/26/2025 11:14 PM EDT [facility] MCV 92.3 79.0 - 97.0 fL 01/26/2025 11:14 PM EDT [facility] MCH 30.4 26.6 - 33.0 pg 01/26/2025 11:14 PM EDT [facility] MCHC 33.0 31.5 - 35.7 g/dL 01/26/2025 11:14 PM EDT [facility] RDW 13.3 12.3 - 15.4 % 01/26/2025 11:14 PM EDT [facility] RDW-SD 43.8 37.0 - 54.0 fl 01/26/2025 11:14 PM EDT [facility] MPV 9.9 6.0 - 12.0 fL 01/26/2025 11:14 PM EDT [facility] Platelets 175 140 - 450 10*3/mm3 01/26/2025 11:14 PM EDT [facility] Blood Venipuncture / Unknown 01/26/2025 3:48 PM EDT 01/26/2025 3:57 PM EDT us Julien Lilly MD LAB BLOOD ORDERABLES Final Resu lt [facility]
[address] [place] [address], documented in this encounter Visit Diagnoses Diagnosis S/p TAVR (transcatheter aortic valve replacement), bioprosthetic Iron deficiency anemia due to chronic blood loss Iron deficiency anemia secondary to blood loss (chronic) documented in this encounter Care Teams Claims Vice President Relationship Specialty Start Date End Date Sravan Anderson MD [address] [facility] [address] [place] [address] PCP - General Adolescent Medicine 06/09/21 documented as of this encounter
--- OUTSIDE RECORDS SUMMARY | 2025-01-28 13:49 | XMS_ITS | Encounter Summary ---
Author Organization [facility] yste Address [address] [place] [id number] Care Team Providers Care Chief Juvenile Probation Officer Name Role Phone Sravan Anderson MD Primary Care Provider [phone] Reason for Referral * Diagnostic Imaging (Routine) - Closed Specialty Diagnoses / Procedures Referred By Contac t Referred To Contact Cardiology Diagnoses Aortic stenosis, severe S/p TAVR (transcatheter aortic valve replacement), bioprosthetic Procedures Adult Transthoracic Echo Complete W/ Cont if Necessary Per Protocol [place] ECHO TTHRC R-T 2D W/WOM-MODE COMPL SPEC&COLR D MN ECHO TRANSTHORC R-T 2D W/WO M-MODE REC F-UP/LMTD Domonique Alejandre MD [address] [place] [address] Phone: tel: fax: [facility] [address] [place] [address] Phone: tel: fax: Referral ID Status Reason Start Date Expiration Date Visits Re quested Visits Authorized [id number] Closed 12/27/2024 03/28/2026 1 1 Reason for Visit * Diagnostic Imaging (Routine) - Closed Specialty Diagnoses / Procedures Referred By Contac t Referred To Contact Cardiology Diagnoses Aortic stenosis, severe S/p TAVR (transcatheter aortic valve replacement), bioprosthetic Procedures Adult Transthoracic Echo Complete W/ Cont if Necessary Per Protocol MN ECHO TTHRC R-T 2D W/WOM-MODE COMPL SPEC&COLR D MN ECHO TRANSTHORC R-T 2D W/WO M-MODE REC F-UP/LMTD Domonique Alejandre MD [address] [facility] [address] [place] [address] Phone: tel: fax: [facility] [address] [place] [address] [address] [place] [address] Phone: tel: fax: Referral ID Status Reason Start Date Expiration Date Visits Re quested Visits Authorized [id number] Closed 12/27/2024 03/28/2026 1 1 Encounter Details Date Type Department Care Team (Late st Contact Info) Description 01/28/2025 2:49 PM EDT - 01/28/2025 11:59 PM EDT Hospital Encounter [facility] NONINVASIVE LAB [place] [address] [facility] [address] [place] [address] Domonique Alejandre MD [address] [place] [address] Aortic stenosis, severe; S/p TAVR (transcatheter aortic valve replacement), bioprosthetic Discharge Disposition: Home or Self Care Social History Tobacco Use Types Packs/Day Years Used Date Smoking Tobacco: Never Passive Smoke Exposure: Never Smokeless Tobacco: Never Alcohol Use Standard Drinks/Week Comments Never 0 (1 standard drink = 0.6 oz pur e alcohol) [facility] Utilities Answer Date Recorded In the past 12 months has [employer], [employer], oil, or water [employer] threatened to shut off services in your [...] and heating? 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 90 tablet 3 01/11/2025 apixaban (ELIQUIS) 5 MG tablet tabletIndications: PAF (paroxysmal atrial fibrillation) Take 1 tablet by mouth 2 (Two) Times a Day. 180 tablet 3 12/17/2024 carvedilol (COREG) 25 MG tabletIndications: Essential hypertension Take 1 tablet by mouth 2 (Two) Times a Day. 180 tablet 3 09/10/2024 Cholecalciferol (Vitamin D3) 25 MCG capsule Take 1 capsule by mouth Daily. Cyanocobalamin (Vitamin B-12) 5000 MCG tablet dispersible Take 1 tablet by mouth Daily. donepezil (ARICEPT) 5 MG tablet Take 1 tablet by mouth Every Night. furosemide (LASIX) 40 MG tablet Take 1 tablet by mouth Daily As Needed (Swelling or Shortness of Breath). 12/28/2024 levothyroxine sodium (TIROSINT) 100 MCG capsule Take 88 mcg by mouth Every Morning. Magnesium 400 MG capsule Take 400 mg by mouth 2 (Two) Times a Day. memantine (NAMENDA) 10 MG tablet Take 1 tablet by mouth 2 (Two) Times a Day. pantoprazole (PROTONIX) 40 MG EC tablet Take 1 tablet by mouth Daily. pravastatin (PRAVACHOL) 40 MG tablet Take 2 tablets by mouth Daily. QUEtiapine XR (SEROquel XR) 200 MG 24 hr tablet Take 2 tablets by mouth Every Night. sitaGLIPtin-metFOR MIN (Janumet) 50-1000 MG per tablet Take 1 tablet by mouth 2 (Two) Times a Day With Meals. documented as of this encounter Plan of Treatment Upcoming Encounters Date Type Department Care Team (Late st Contact Info) Description 03/28/2025 3:30 PM EST Office Visit [facility] HEMATOLOGY & ONCOLOGY [address] [place] [address] [address] [place] [phone] Griselda Mccormack MD [address] [facility] [address] [place] [address] 04/07/2025 3:00 PM EST Office Visit [facility] CARDIOTHORACIC SURGERY [address] [facility] [address] [place] [address] Beryl Borrero APRN [address] [facility] [address] [place] [address] 04/29/2025 2:45 PM EST Office Visit [facility] CARDIOLOG[facility] [address] [facility] [address] [place] [phone] Julien Lilly MD [address] [place] [address] [address] [place] [address] 11/03/2025 2:00 PM EDT Office Visit [facility] [address] [facility] [address] [place] [address] Domonique Alejandre MD [address] [facility] [address] [place] [address] documented as of this encounter Procedures Procedure Name Priority Date/Time Associated Diagnosis Comments ECHO COMPLETE W/ DOPPLER AND COLOR FLOW Routine 01/28/2025 3:33 PM EDT Aortic stenosis, severe S/p TAVR (transcatheter aortic valve replacement), bioprosthetic documented in this encounter Results * ECHO COMPLETE W/ DOPPLER AND COLOR FLOW (01/28/2025 3:33 PM EDT) EF(MOD-bp) 68.7 % LVIDd 3.7 cm LVIDs 2.5 cm IVSd 1.20 cm LVPWd 0.70 cm FS 32.4 % IVS/LVPW 1.71 cm ESV(cubed) 15.6 ml LV Sys Vol (BSA corrected) 17.7 cm2 EDV(cubed) 50.7 ml LV Simms Vol (BSA corrected) 53.5 cm2 LV mass(C)d 104.6 grams LVOT area 2.45 cm2 LVOT diam 1.77 cm EDV(MOD-sp2) 86.3 ml EDV(MOD-sp4) 96.2 ml ESV(MOD-sp2) 24.3 ml ESV(MOD-sp4) 31.8 ml SV(MOD-sp2) 62.0 ml SV(MOD-sp4) 64.4 ml SVi(MOD-SP2) 34.5 ml/m2 SVi(MOD-SP4) 35.8 ml/m2 SVi (LVOT) 38.3 ml/m2 EF(MOD-sp2) 71.8 % EF(MOD-sp4) 66.9 % MV E max jacob 143.0 cm/sec MV A max jacob 93.9 cm/sec MV dec time 0.25 sec MV E/A 1.52 IVRT 106.0 ms LA ESV Index (BP) 31.1 ml/m2 Med Peak E' Jacob 7.6 cm/sec Lat Peak E' Jacob 10.1 cm/sec TR max jacob 329.5 cm/sec Avg E/e' ratio 16.16 SV(LVOT) 68.9 ml RV Base 2.7 cm RV Mid 1.90 cm RV Length 5.4 cm TAPSE (>1.6) 2.22 cm RV S' 7.6 cm/sec LA dimension (2D) 4.0 cm LV V1 max 107.0 cm/sec LV V1 max PG 4.6 mmHg LV V1 mean PG 3.0 mmHg LV V1 VTI 28.1 cm Ao pk jacob 294.7 cm/sec Ao max PG 34.7 mmHg Ao mean PG 18.3 mmHg Ao V2 VTI 67.9 cm VERNON(I,D) 1.01 cm2 Dimensionless Index 0.41 (DI) MV max PG 10.1 mmHg MV mean PG 5.0 mmHg MV V2 VTI 45.3 cm MVA(VTI) 1.52 cm2 MV dec slope 561.0 cm/sec2 TR max PG 52 mmHg PA V2 max 127.0 cm/sec PA acc time 0.08 sec Ao root diam 2.10 cm RVSP(TR) 55 mmHg RAP systole 3 mmHg Anatomical Region Laterality Modality Ultrasound Narrative 01/28/2025 3:55 PM EDT Left ventricular systolic function is normal. Calculated left ventricular EF = 68.7% Left ventricular diastolic function is consistent with (grade I) impaired relaxation. There is a TAVR valve present with no paravalvular leak. There is mean gradient of 15 mmHg. Mild mitral valve stenosis is present. Estimated right ventricular systolic pressure from tricuspid regurgitation is moderately elevated (45-55 mmHg). Calculated right ventricular systolic pressure from tricuspid regurgitation is 55 mmHg. The aortic root measures 2.1 cm. Severe mitral annular calcification is present. Left Ventricle Left ventricular systolic function is normal. Calculated left ventricular EF = 68.7% Normal left ventricular cavity size and wall thickness noted. All left ventricular wall segments contract normally. Left ventricular diastolic function is consistent with (grade I) impaired relaxation. Right Ventricle Normal right ventricular cavity size, wall thickness, systolic function and septal motion noted. Left Atrium The left atrial cavity is borderline dilated. Right Atrium Normal right atrial cavity size noted. Mitral Valve Severe mitral annular calcification is present. There is moderate calcification of the mitral valve posterior leaflet(s). Mild mitral valve stenosis is present. Tricuspid Valve The tricuspid valve is structurally normal with no significant regurgitation or significant stenosis present. Estimated right ventricular systolic pressure from tricuspid regurgitation is moderately elevated (45-55 mmHg). Calculated right ventricular systolic pressure from tricuspid regurgitation is 55 mmHg. Aortic Valve There is a TAVR valve of unknown size present. The prosthetic aortic valve is grossly normal. Pulmonic Valve The pulmonic valve is structurally normal with no regurgitation or significant stenosis present. Pericardium The pericardium is normal. There is no evidence of pericardial effusion. . Greater Vessels No dilation of the aortic root is present. Aortic root = 2.10 cm No dilation of the sinuses of Valsalva is present. The inferior vena cava is normally sized. Normal IVC inspiratory collapse of greater than 50% noted. Study Quality The study is technically adequate for diagnosis. us Domonique Alejandre MD CV ECHO ORDERABLES Final Resul t documented in this encounter Visit Diagnoses Diagnosis Aortic stenosis, severe S/p TAVR (transcatheter aortic valve replacement), bioprosthetic documented in this encounter Care Teams Chief Juvenile Probation Officer Relationship Specialty Start Date End Date Sravan Anderson MD [address] [facility] [address] [place] [address] PCP - General Adolescent Medicine 06/09/21 documented as of this encounter
--- OUTSIDE RECORDS SUMMARY | 2025-02-10 12:30 | XMS_ITS | Encounter Summary ---
[facility] Address [address] [place] [address] Care Team Providers Care Safe Expert Name Role Phone Sravan Anderson MD Primary Care Provider [phone] Reason for Visit * Reason Comments Follow-up Hosp D/C TAVR 12/27/24 -complains of fatigue and weakness Encounter Details Date Type Department Care Team (Late st Contact Info) Description 02/10/2025 1:30 PM EDT Office Visit [facility] CARDIOTHORACIC SURGERY [address] [phone] Ann Marie Stiles, [employer] [address] [address] Aortic valve stenosis s/p TAVR 12/27/2024 (Primary Dx); Chronic heart failure with preserved ejection fraction (HFpEF) Social History Tobacco Use Types Packs/Day Years Used Date Smoking Tobacco: Never Passive Smoke Exposure: Never Smokeless Tobacco: Never Alcohol Use Standard Drinks/Week Comments Never 0 (1 standard drink = 0.6 oz pur e alcohol) [facility] Utilities Answer Date Recorded In the past 12 months has [employer], gas, oil, or water [employer] threatened to shut off services in your [...] and heating? 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 Not on vivek e Not on file documented as of this encounter Last Filed Vital Signs Vital Sign Reading Time Taken Comments Blood Pressure 162/70 02/10/2025 1:55 PM EDT Pulse - - Temperature 36.1 C (97 F) 02/10/2025 1:41 PM EDT Respiratory Rate - - Oxygen Saturation 94% 02/10/2025 1:4 1 PM EDT Inhaled Oxygen Concentration - - Weight 81.6 kg (180 lb) 02/10/2025 1:41 PM EDT Height 154.9 cm (5' 1 ) 02/10/2025 1:41 PM EDT patient reported Body Mass Index 34.01 02/10/2025 1:41 PM EDT documented in this encounter Progress Notes * Ann Marie Stiles, [employer] - 02/10/2025 1:30 PM EDT Images from the original note were not included. [facility] Cardiothoracic Surgery Office Follow Up Note Date of Encounter: 02/10/2025 Name: Yuki Barraza : 1945 Referred By: No ref. provider found PCP: Sravna Anderson MD Chief Complaint: Chief Complaint Patient presents with Follow-up Hosp D/C TAVR 12/27/24-complains of fatigue and weakness Subjective History of Present Illness: Yuki Barraza is a 79 y.o. female s/p TAVR 12/27/2024 w/ 20 mm Luque Brynn III pericardial prosthesis. PMH: HFpEF, paroxysmal A-fib s/p PVA (Dr. Barnes), Hx CVA 2023, hypertension, hyperlipidemia, iron deficiency anemia secondary to chronic blood loss (followed by Dr. Escalante), type 2 diabetes, dementia, traumatic subdural hematoma 2016, carotid stenosis, CKD, and severe aortic stenosis s/p TAVR.Following uncomplicated surgical intervention, patient recovered in progressive care unit. POD #1 patient experience localized acute tenderness at right vascular access site. Duplex to assess for pseudoaneurysm was negative for hematoma or pseudoaneurysm. But possible foreign body in the right common femoral artery was observed on ultrasound. This was reviewed by Dr. Gonsalves who felt this abnormalduplex signal represented a mobile femoral intima. Patient did not obtain the outpatient ultrasoundas ordered. As noted in pre-op exam, patient has been essentially chair bound since June 2024. Although she reports a general feeling of improved breathing and denies chest pain, she remains unable to complete basic ADLs without assistance and unable to walk more than 50 to 75 feet unassisted at home. Review of Systems: Review of Systems Constitutional: Positive for malaise/fatigue. Negative for chills, decreased appetite, diaphoresis,fever, night sweats, weight gain and weight loss. HENT: Negative for hoarse voice. Eyes: Negative for blurred vision, double vision and visual disturbance. Cardiovascular: Negative for chest pain, claudication, dyspnea on exertion, irregular heartbeat, leg swelling, near-syncope, orthopnea, palpitations, paroxysmal nocturnal dyspnea and syncope. Respiratory: Negative for hemoptysis, shortness of breath, sputum production and wheezing. Hematologic/Lymphatic: Negative for adenopathy and bleeding problem. Does not bruise/bleed easily. Skin: Negative for color change, nail changes, poor wound healing and rash. Musculoskeletal: Negative for back pain, falls and muscle cramps. Gastrointestinal: Negative for abdominal pain, dysphagia and heartburn. Genitourinary: Negative for flank pain. Neurological: Negative for brief paralysis, disturbances in coordination, dizziness, focal weakness, headaches, light-headedness, loss of balance, numbness, paresthesias, sensory change, vertigo and weakness. Psychiatric/Behavioral: Negative for depression and suicidal ideas. Allergic/Immunologic: Negative for persistent infections. I have reviewed the following portions of the patient's history: problem list, current medications,allergies, past surgical history, past medical history, past social history, past family history, and ROS and confirm it's accurate. Allergies: Allergies Allergen Reactions Tylenol [Acetaminophen] Nausea And Vomiting Aspirin Other (See Comments) Nose Bleeds Dicyclomine Unknown - Low Severity Bentyl Duloxetine Hcl Rash Rash Erythromycin Nausea Only Etodolac Rash Meperidine Other (See Comments) Demerol unknown reaction Rosuvastatin Rash Medications: Current Outpatient Medications: amLODIPine (NORVASC) 5 MG [...] No current facility-administered medications for this visit. History: Past Medical History: Diagnosis Date Anemia Anemia Aortic valve stenosis arthritis Arthritis Atrial fibrillation s/p PVA Carotid stenosis CHF (congestive heart failure) Chicken pox CKD (chronic kidney disease) Diabetes mellitus Heart failure History of blood transfusion no reaction Hyperlipidemia Hypertension Stroke 2020 no residual Subdural hematoma Thyroid disease Past Surgical History: Procedure Laterality Date AORTIC VALVE REPAIR/REPLACEMENT N/A 12/27/2024 Procedure: TRANSCATHETER AORTIC VALVE REPLACEMENT; Surgeon: Abhay Gonsalves MD; Location: [facility]; Service: Cardiothoracic; Laterality: N/A; FL-8MIN 24 SEC DOSE- 313 MGY CONTRAST-55 ML ISO AORTIC VALVE REPAIR/REPLACEMENT N/A 12/27/2024 Procedure: Transfemoral Transcatheter Aortic Valve Replacement; Surgeon: Domonique Alejandre MD; Location: [facility]; Service: Cardiovascular; Laterality: N/A; APPENDECTOMY CARDIAC CATHETERIZATION N/A 09/20/2024 Procedure: Coronary angiography - Right radial access; Surgeon: Domonique Alejandre MD; Location: [facility]ATH [facility]VASIVE LOCATION; Service: Cardiovascular; Laterality: N/A; CHOLECYSTECTOMY COLONOSCOPY HYSTERECTOMY JOINT REPLACEMENT Bilateral shoulders KNEE SURGERY Bilateral PULMONARY VEIN ISOLATION pulmonary vein ablation TRANSESOPHAGEAL ECHOCARDIOGRAM (JYOTSNA) N/A 12/27/2024 Procedure: TRANSESOPHAGEAL ECHOCARDIOGRAM WITH ANESTHESIA; Surgeon: Abhay Gonsalves MD; Location: [facility]; Service: Cardiothoracic; Laterality: N/A; Social History Socioeconomic History Marital status: Number of children: 2 Tobacco Use Smoking status: Never Passive exposure: Never Smokeless tobacco: Never Vaping Use Vaping status: Never Used Substance and Sexual Activity Alcohol use: Never Drug use: Never Sexual activity: Defer Family History Problem Relation Name Age of Onset Cancer Sister Carmen Lung disease Brother kenneth Cancer Brother Ozzy Cancer Brother Prince Objective Physical Exam: Vitals: 02/10/25 1341 02/10/25 1355 BP: 158/70 162/70 BP Location: Left arm Right arm Patient Position: Sitting Sitting Temp: 97 ??F (36.1 ??C) SpO2: 94% Weight: 81.6 kg (180 lb) Height: 154.9 cm (61 ) Comment: patient reported Body mass index is 34.01 kg/m??. Physical Exam Vitals reviewed. Constitutional: General: She is not in acute distress. Appearance: She is not toxic-appearing. Comments: Seated in WC HENT: Head: Normocephalic and atraumatic. Eyes: General: Lids are normal. Conjunctiva/sclera: Conjunctivae normal. Pupils: Pupils are equal, round, and reactive to light. Neck: Vascular: No JVD. Cardiovascular: Rate and Rhythm: Normal rate and regular rhythm. Pulses: Femoral pulses are 2+ on the right side and 2+ on the left side. Dorsalis pedis pulses are 1+ on the right side and 1+ on the left side. Posterior tibial pulses are 1+ on the right side and 1+ on the left side. Heart sounds: S1 normal and S2 normal. No murmur heard. Comments: Bilateral femoral vascular access sites free from tenderness, ecchymosis, or pulsatile mass Pulmonary: Effort: Pulmonary effort is normal. No respiratory distress. Breath sounds: Normal breath sounds. Musculoskeletal: General: Normal range of motion. Cervical back: Normal range of motion and neck supple. Right lower leg: No edema. Left lower leg: No edema. Skin: General: Skin is warm and dry. Capillary Refill: Capillary refill takes less than 2 seconds. Neurological: General: No focal deficit present. Mental Status: She is alert and oriented to person, place, and time. Psychiatric: Attention and Perception: Attention normal. Mood and Affect: Mood normal. Speech: Speech normal. Behavior: Behavior is cooperative. Imaging/Labs: CXR 02/10/25: personally reviewed Cardiac silhouette appears stable. AP view only. No PTX. No appreciable pleural effusion. Radiologyreview pending. Post op TTE 01/28/25 Interpretation Summary Left ventricular systolic function is normal. Calculated [...] cm. Severe mitral annular calcification is present. Duplex Pseudoaneurysm CAR 12/28/2024 Interpretation Summary No evidence of pseudoaneurysm and AV fistula in the right groin. Note made of highly mobile plaque versus suture in right common femoral artery CT Angio TAVR Chest Abdomen Pelvis: 11/15/2024 Impression: 1.Mild aortic valve calcifications. 2.Diverticulosis without evidence of diverticulitis. Electronically Signed: Moises Sauceda MD 11/15/2024 Carotid Duplex 11/12/24 Interpretation Summary Right internal carotid artery demonstrates a 50-69% stenosis. Antegrade right vertebral flow. Left internal carotid artery demonstrates a less than 50% stenosis. Antegrade left vertebral flow. Cardiac Cath 09/22/24 Conclusion (Personally reviewed) Normal coronary arteries Patient need further workup before TAVR including anemia workup as her hemoglobin has been hoveringaround 7 She also has hyponatremia which needs further workup. Procedure Narrative FINAL IMPRESSION: Severe aortic stenosis RECOMMENDATIONS: Workup for TAVR Indications: Evaluation for TAVR Access: Right radial artery Procedures: Left heart catheterization. Selective coronary angiography. Measurement of LVEDP and LVOT gradient Arterial site hemostasis with TR band Hemodynamic Findings: Heart Rate: 55/minute. Blood Pressure: 150/75 mmHg LVEDP of 20, LVOT/aortic valve gradient: 40 mmHg Angiographic Findings: Bilateral coronary dominance LM: There is a short left main, divides into LAD and circumflex LAD: LAD does not have any significant disease Diag1/2: Diagonal does not have any significant disease LCX: Circumflex does not have any significant disease OM1/2 : Does not have any significant disease RCA: RCA does not have any significant disease PL/PDA: Posterolateral and PDA does not have any significant disease COLLATERALS: no collaterals seen FLUOROSCOPY: Calcification of aortic valve seen NM GXT 08/23/2024 Interpretation Summary This is a probably normal stress PET scan. Overall impression is low risk for ischemia. Myocardial perfusion imaging indicates probably normal myocardial perfusion. There is a very small,mild, apical area of photopenia which can be explained by apical thinning. SSS= 0. TID 1.08. ECG portion nondiagnostic. REST EF = 66% STRESS EF = 68%. Minimal coronary artery calcifications. Significant aortic and mitral valve calcifications as well as throughout the entirety of the aorta. Right peribronchial calcifications also noted. TTE 08/09/2024 Interpretation Summary Left ventricular systolic function is normal. Calculated left ventricular EF = 69.2% Left ventricular ejection fraction appears to be 66 - 70%. Grade II diastolic dysfunction present. Left ventricular wall thickness is consistent with mild septal asymmetric hypertrophy. Sigmoid-shaped ventricular septum is present. Normal right ventricular size and function. The left atrial cavity is mildly dilated. Moderate to severe aortic valve stenosis is present. VERNON 0.8 cm2. Vmax 3.9 cm/s. mPG 33 mmHg. Mild mitral valve regurgitation is present. Mild tricuspid valve regurgitation is present. Estimated right ventricular systolic pressure from tricuspid regurgitation is mildly elevated (35-45 mmHg). Assessment / Plan Assessment / Plan: 1. Aortic valve stenosis s/p TAVR 12/27/2024 2. Chronic heart failure with preserved ejection fraction (HFpEF) - 79 y.o. female s/p TAVR 12/27/2024 w/ 20 mm Luque Brynn III pericardial prosthesis. - PMH: HFpEF, paroxysmal A-fib s/p PVA (Dr. Barnes), Hx CVA 2023, hypertension, hyperlipidemia, iron deficiency anemia secondary to chronic blood loss (followed by Dr. Escalante), type 2 diabetes, dementia, traumatic subdural hematoma 2016, carotid stenosis, CKD, and severe aortic stenosis s/p TAVR. - Post op course as per HPI - CXR without pleural effusion or pulmonary vascular congestion -Groin exam without pulsatile mass or residual ecchymosis/tenderness -Will obtain follow-up right pseudoaneurysm duplex as recommended by Dr. Gonsalves to assess intimal flap healing -For general postoperative debility, trial of outpatient physical therapy then transition to cardiac rehab -Postop transthoracic echocardiogram demonstrates good prostatic function without paravalvular leak - Seen in cardiology clinic 01/26/2025 -Follow-up with hematology as scheduled -Return to CT/vascular surgery in 8 weeks to follow-up on femoral vascular ultrasound and assess benefit of outpatient physical therapy. Patient Education: Discussed the use of prophylactic antibiotics before dental work and other surgeries. Follow Up: Return in about 2 months (around 04/12/2025) for right femoral duplex. Or sooner for any further concerns or worsening sign and symptoms. If unable to reach us in the office please dial 911 or go to the nearest emergency department. Ann Marie Stiles APRN [facility] Cardiothoracic Surgery Time Spent: I spent 30 minutes caring for Yuki on this date of service. This time includes time spent by me in the following activities: preparing for the visit, reviewing tests, obtaining and/or reviewing a separately obtained history, performing a medically appropriate examination and/or evaluation, counseling and educating the patient/family/caregiver, ordering medications, tests, or procedures, documenting information in the medical record, independently interpreting results and communicating that information with the patient/family/caregiver, and care coordination. documented in this encounter Plan of Treatment Upcoming Encounters Date Type Department Care Team (Late st Contact Info) Description 03/28/2025 3:30 PM EST Office Visit [facility] HEMAT[facility] & [facility]Y [address] [facility] [address] [place] [phone] Griselda Mccormack MD [address] [facility] [address] [place] [address] 04/07/2025 3:00 PM EST Office Visit [facility] CARDI[facility]ACIC SURGERY [address] [facility] [address] [place] [phone] Beryl Borrero APRN [address] [facility] [address] [place] [address] 04/29/2025 2:45 PM EST Office Visit [facility] CARDI[facility] [address] [facility] [address] [place] [phone] Julien Lilly MD [address] [facility] [address] [place] [address] 11/03/2025 2:00 PM EDT Office Visit [facility] CARD[facility] [address] [facility] [address] [place] [phone] Domonique Alejandre MD [address] [facility] [address] [place] [address] documented as of this encounter Visit Diagnoses Diagnosis Aortic valve stenosis s/p TAVR 12/27/2024- Primary Chronic heart failure with preserved ejection fraction (HFpEF) documented in this encounter Care Teams Safe Expert Relationship Specialty Start Date End Date Sravan Anderson MD [facility] [address] [facility] [place] [address] PCP - General Adolescent Medicine 06/09/21 documented as of this encounter
--- OUTSIDE RECORDS SUMMARY | 2025-02-10 13:00 | XMS_ITS | Encounter Summary ---
Author Organization [facility] Address [address] [place] [address] Care Team Providers Care Cargo Broker Name Role Phone Sravan Anderson MD Primary Care Provider [phone] Encounter Details Date Type Department Care Team (Latest Contact Info) Description 02/10/2025 2:00 PM EDT Ancillary Procedure [facility] CARDIOTHORACIC SURGERY [address] [place] [address] [address] [place] [address] S/P TAVR (transcatheter aortic valve replacement) Social History Tobacco Use Types Packs/Day Years Used Date Smoking Tobacco: Never Passive Smoke Exposure: Never Smokeless Tobacco: Never Alcohol Use Standard Drinks/Week Comments Never 0 (1 standard drink = 0.6 oz pur e alcohol) [facility] Utilities Answer Date Recorded In the past 12 months has [employer]), gas, oil, or water [employer] threatened to shut off services in your [...] and heating? 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 H[facility]AT[facility] & [facility]COL[facility]Y [address] [facility] [address] [place] [phone] Griselda Mccormack MD [address] [facility] [address] [place] [address] 04/07/2025 3:00 PM EST Office Visit [facility] CARDI[facility] SURGERY [address] [facility] [address] [place] [phone] Beryl Borrero APRN [address] [facility] [address] [place] [address] 04/29/2025 2:45 PM EST Office Visit [facility] C[facility] [address] [facility] [address] [place] [phone] Julien Lilly MD [address] [facility] [address] [place] [address] 11/03/2025 2:00 PM EDT Office Visit [facility] C[facility] [address] [facility] [address] [place] [phone] Domonique Alejandre MD [address] [facility] [address] [place] [address] documented as of this encounter Procedures Procedure Name Priority Date/Time Associated Diagnosis Comments XR CHEST 1 VW Routine 02/10/2025 2:04 PM EDT S/P TAVR (transcatheter aortic valve replacement) documented in this encounter Results * XR Chest 1 View (02/10/2025 2:04 PM EDT) Anatomical Region Laterality Modality Body N/A Radiographic Flavia ging 02/10/2025 4:41 PM EDT Impressions 02/10/2025 4:47 PM EDT Impression: No acute cardiopulmonary abnormality is identified. Electronically Signed: Kayy Saldivar MD 02/10/2025 4:47 PM EDT Workstation ID: [id number] Narrative 02/10/2025 4:47 PM EDT XR CHEST 1 VW Date of Exam: 02/10/2025 1:58 PM EDT Indication: S/P TAVR 12/27/24. Comparison: Two-view chest x-ray 12/24/2024 Findings: New TAVR in place. Lungs appear clear. No pneumothorax is seen. Cardiomediastinal contours are stable. Procedure Note Kayy Sadlivar MD - 02/10/2025 XR CHEST 1 VW Date of Exam: 02/10/2025 1:58 PM EDT Indication: S/P TAVR 12/27/24. Comparison: Two-view chest x-ray 12/24/2024 Findings: New TAVR in place. Lungs appear clear. No pneumothorax is seen.Cardiomediastinal contours are stable. IMPRESSION: Impression: No acute cardiopulmonary abnormality is identified. Electronically Signed: Kayy Saldivar MD 02/10/2025 4:47 PM EDT Workstation ID: [id number] Ann Marie Stiles APRN [facility] Final Result documented in this encounter Visit Diagnoses Diagnosis S/P TAVR (transcatheter aortic valve replacement) documented in this encounter Care Teams Cargo Broker Relationship Specialty Start Date End Date Sravan Anderson MD [address] [place] [address] [place] [address] PCP - General Adolescent Medicine 06/09/21 documented as of this encounter
--- NOTE | 2025-03-14 | CA_ITS ---
FINAL REPORT TECHNIQUE: Sonographic images of the right groin were obtained using color and grayscale imaging. CLINICAL HISTORY: Recent TAVR 01/26/25 with right groin access. Patient states post op she had uncontrolled pain at rt groin site. A scan was performed at outside facility with findings of highly mobile plaque vs suture seen in right common femoral artery. Surgeon reviewed images and felt it was a mobile femoral intima. Patient states she saw her surgeon 1 month ago and they requested a follow up scan to re evaluate. FINDINGS: There is mild plaque in the distal right common femoral artery. There is no evidence of pseudoaneurysm. No mass or fluid collection is identified. IMPRESSION: No evidence of pseudoaneurysm. Reviewed, Interpreted and Dictated by Beryl Vu MD Transcribed by Padmini Gonzalez Authenticated and [facility]
--- OUTSIDE RECORDS SUMMARY | 2025-03-14 13:24 | XMS_ITS | Encounter Summary ---
Author Organization [facility] Address [address] [place] [address] Care Team Providers Care Heel Splitter Name Role Phone Sravan Anderson MD Primary Care Provider + [phone] Encounter Details Date Type Department Care Team (Latest Contact Info) Description 02/10/2025 Travel Social History Tobacco Use Types Packs/Day Years Used Date Smoking Tobacco: Never Passive Smoke Exposure: Never Smokeless Tobacco: Never Alcohol Use Standard Drinks/Week Comments Never 0 (1 standard drink = 0.6 oz pur e alcohol) [facility] Utilities Answer Date Recorded In the past 12 months has [employer] electric, gas, oil, or water company threatened [...] and heating? 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 Not on file documented as of this encounter Plan of Treatment Upcoming Encounters Date Type Department Care Team (Late st Contact Info) Description 03/28/2025 3:30 PM EST Office Visit [facility] HEMATOLOGY & ONCOLOGY [address] [facility] [address] [place] [address] Griselda Mccormack MD [address] [facility] [address] [place] [address] 04/07/2025 3:00 PM EST Office Visit [facility] CARDIOTHORACIC SURGERY [address] [facility] [address] [place] [address] Beryl Borrero APRN [address] [facility] [address] [place] [address] 04/29/2025 2:45 PM EST Office Visit [facility] CARDIOLOGY [address] [facility] [address] [place] [address] Julien Lilly MD 3000 [facility] [address] [place], [place] [address] 11/03/2025 2:00 PM EDT Office Visit [facility] CARDIOLOGY [address] [facility] [address] [place] [address] Domonique Alejandre MD 17[address] [facility] [address] [place], [place] [address] documented as of this encounter Visit Diagnoses Not on filedocumented in this encounter Care Teams Heel Splitter Relationship Specialty Start Date End Date Sravan Anderson MD [address] [place] [address] [place] [address] PCP - General Adolescent Medicine 06/09/21 documented as of this encounter
--- OUTSIDE RECORDS SUMMARY | 2025-03-14 13:24 | XMS_ITS | Clinical Summary ---
Author Organization [facility] Address [address] [place] [address] Phone Care Team Providers Care Fitter/Welder Name Role Phone Velvet ROY, Emanuel Baron [phone] [ ] Conditions or Problems Problem Name Problem Code Onset Date Status Entry Date Provider Comment Standard Description Annotate Nausea 720531646 (SNOMED CT) 05/09 Active 05/09 Emanuel Verdin MD Nausea ELEVATED CRP R79.82 (ICD-10-CM ) 06/07 Active 06/07 Sarika Avinash Elevated C-reactive protein (CRP) ELEVATED SEDIMENTATION RATE 678617491 (SNOMED CT) 06/07 Active 06/07 Sarika Da Silva Erythrocyte sedimentation rate above reference range Obesity 319874771 (SNOMED CT) 05/03 Active 05/03 Tiesha W Obesity Diabetes mellitus type II, not stated as uncontrolled E11.9 (ICD-10-CM ) 05/03 Active 05/03 Tiesha W Type 2 diabetes mellitus without complications BACK SURGICAL SITE INFECTION 682.2 (ICD-9-CM) 05/03 Active 05/03 Tiesha W Cellulitis and abscess of trunk MSSA A49.01 (ICD-10-CM ) 05/03 Active 05/03 Tiesha W Methicillin susceptible Staphylococcus aureus infection, unspecified site Diarrhea 59274694 (SNOMED CT) 05/03 Active 05/03 Tiesha W Diarrhea Medications Medication Instructions Start Date Stop Date Generic Name ND Provider KLOR-CON 20 MEQ PACK 1 tablet by mouth daily 05/09 POTASSIUM CHLORIDE [id number] Emanuel Verdin MD DOXYCYCLINE HYCLATE 100 MG CAPS Take one (1) tablet by mouth twice a day DOXYCYCLINE HYCLATE 74032827588 Emanuel Verdin MD CEFTRIAXONE SODIUM 2 GM SOLR 2gm IV daily / [facility] outpt 04/25 CEFTRIAXONE SODIUM [id number] Emanuel Verdin MD CEFTRIAXONE SODIUM 2 GM SOLR 2gm IV daily / [facility] outpt 04/25 CEFTRIAXONE SODIUM 13984096915 Anum Forrester RN CEFTRIAXONE SODIUM 2 GM SOLR 2gm IV daily 06/05 CEFTRIAXONE SODIUM 64673372271 Patito Suárez RN NYSTATIN 733231 UNIT/ML SUSP QID NYSTATIN 11780023863 Ann Marie Guthrie HYDROCODONE-ACETAM INOPHEN 7.5-325 MG TABS Q 6 h HYDROCODONE-ACETAM INOPHEN 09661991611 Ann Marie Guthrie VITAMIN B-12 100 MCG TABS 2 x a month CYANOCOBALAMIN 85718321016 Ann Marie Guthrie ALPHA-LIPOIC ACID 200 MG TABS QD ALPHA-LIPOIC ACID 45856421995 Ann Marie Guthrie VITAMIN E 400 UNIT TABS BID VITAMIN E 77387732530 Ann Marie Guthrie VITAMIN D 1000 UNIT CAPS QD CHOLECALCIFEROL 18314028051 Ann Marie Guthrie PROBIOTIC ACIDOPHILUS BIOBEADS ORAL CAPSULE QD PROBIOTIC PRODUCT 59799752576 Ann Marie Guthrie CHLORDIAZEPOXIDE HCL 5 MG CAPS QID CHLORDIAZEPOXIDE HCL 47711558116 Ann Marie Guthrie ZYRTEC ALLERGY 10 MG CAPS QD CETIRIZINE HCL 86792915142 Ann Marie Guthrie METFORMIN HCL 1000 MG TABS BID METFORMIN HCL 20005940524 Ann Marie Guthrie PRAVASTATIN SODIUM 80 MG TABS QD PRAVASTATIN SODIUM 33551676358 Ann Marie Guthrie LOSARTAN POTASSIUM 100 MG TABS QD LOSARTAN POTASSIUM 53329825390 Ann Marie Guthrie INDAPAMIDE 2.5 MG TABS QD INDAPAMIDE 60671013230 Ann Marie Guthrie PANTOPRAZOLE SODIUM 40 MG TBEC QD PANTOPRAZOLE SODIUM 44577355260 Ann Marie Guthrie ESCITALOPRAM OXALATE 5 MG TABS QD ESCITALOPRAM OXALATE 68496034673 Ann Marie Guthrie CLONAZEPAM 1 MG TABS QD CLONAZEPAM 59442569964 Ann Marie Guthrie NAPROXEN 500 MG TABS QD NAPROXEN 20392487663 Ann Marie Guthrie PREMARIN 1.25 MG TABS QD ESTROGENS CONJUGATED 56634834279 Ann Marie Guthrie LEVOTHYROXINE SODIUM 100 MCG SOLR QD LEVOTHYROXINE SODIUM 76585621215 Ann Marie Guthrie FORTAZ (IV) 05/15 FORTAZ (IV) Ann Marie Guthrie FORTAZ (IV) 05/15 FORTAZ (IV) Emanuel VALERIOOR-CON 20 MEQ PACK 1 tablet by mouth daily 2022/0 07/20 POTASSIUM CHLORIDE 57354774841 Anum Forrester RN CEFTRIAXONE SODIUM 2 GM SOLR 1gm IV daily 06/05 CEFTRIAXONE SODIUM 50701258467 Patito Suárez RN Medications Administered No information [...] medications (procedure) SMOK STATUS Never smoker 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
--- OUTSIDE RECORDS SUMMARY | 2025-03-14 13:25 | XMS_ITS | Encounter Summary ---
[facility] Organization [facility] Address [address] [place] [address] Care Team Providers Care Extract Wringer Name Role Phone Sravan Anderson MD Primary Care Provider [phone] Encounter Details Date Type Department Care Team (Late st Contact Info) Description 01/18/2025 Readmission Management [facility] NURSE CALL C[facility] [address] [place] [address] Isi Canales, RN Social History Tobacco Use Types Packs/Day Years Used Date Smoking Tobacco: Never Passive Smoke Exposure: Never Smokeless Tobacco: Never Alcohol Use Standard Drinks/Week Comments Never 0 (1 standard drink = 0.6 oz pur e alcohol) [facility] Utilities Answer Date Recorded In the past 12 months has [employer] electric, gas, oil, or water company threatened [...] and heating? 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 [place] Does the patient have one of the following disease processes/diagnoses(primary or secondary)? Cardiothoracic surgery Week 1 attempt successful? No Unsuccessful attempts Attempt 3 Revoke Decline to participate ISI Brown - Registered Nurse documented in this encounter Plan of Treatment Upcoming Encounters Date Type Department Care Team (Late st Contact Info) Description 03/28/2025 3:30 PM EST Office Visit [facility] HEMATOLOGY & ONCOLOGY [address] [facility] [address] [place] [phone] Griselda Mccormack MD [address] [facility] [address] [place] [address] 04/07/2025 3:00 PM EST Office Visit [facility] CARDIOTHORACIC SURGERY [address] [facility] [address] [place] [address] Beryl Borrero APRN 17[address] [facility] [address] [place] [address] 04/29/2025 2:45 PM EST Office Visit [facility] CARDIOLOGY [address] [facility] [address] [place] [phone] Julien Lilly MD 3000 [facility] [address] [place], [place] [address] 11/03/2025 2:00 PM EDT Office Visit [facility] CARDIOLOGY [address] [facility] [address] [place] [address] Domonique Alejandre MD 1720 [facility] [address] [place], [place] [address] documented as of this encounter Visit Diagnoses Not on filedocumented in this encounter Care Teams Extract Wringer Relationship Specialty Start Date End Date Sravan Anderson MD [address] [facility] [address] [place] [address] PCP - General Adolescent Medicine 06/09/21 documented as of this encounter
--- OUTSIDE RECORDS SUMMARY | 2025-03-14 13:25 | XMS_ITS | Encounter Summary ---
Author Organization [facility] Address [address] [place] [address] Care Team Providers Care Electrician Front Name Role Phone Sravan Anderson MD Primary Care Provider [phone] Encounter Details Date Type Department Care Team (Late st Contact Info) Description 02/24/2025 Documentation [facility] CARDIOLOGY [address] [place] [address] Beatris Ochoa, MOLD CHECKER [address] [facility] [address] [place] [address] Social History Tobacco Use Types Packs/Day Years Used Date Smoking Tobacco: Never Passive Smoke Exposure: Never Smokeless Tobacco: Never Alcohol Use Standard Drinks/Week Comments Never 0 (1 standard drink = 0.6 oz pur e alcohol) [facility] Utilities Answer Date Recorded In the past 12 months has [employer], oil, or water [employer] threatened to shut off services in your [...] all 12/28/2024 [facility] of Occupat ional Health - Occupational Stress [...] GED or equivalent No 12/28/2024 Preferred Language Armenian 12/28/2024 PHQ-2 Answer Date Recorded Patient Health Questionnaire-2 Score 0 12/28/2024 Comments No Sex and Gender Information Value Date Recorded Sex Assigned at Not on file Legal Sex Female 11:00 AM EDT Gender Identity Not on file Sexual Orientation Not on file 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 Not on file documented as of this encounter Progress Notes * Beatris Ochoa APRN - 02/24/2025 10:46 AM EST NYHA III KCCQ 42/70 documented in this encounter Plan of Treatment Upcoming Encounters Date Type Department Care Team (Late st Contact Info) Description 03/28/2025 3:30 PM EST Office Visit [facility] HEMATOLOGY & ONCOLOGY [address] [facility] [address] [place] [address] Griselda Mccormack MD [address] [facility] [address] [place] [address] 04/07/2025 3:00 PM EST Office Visit [facility] CARDIOTHORACIC SURGERY [address] [facility] [address] [place] [address] Beryl Borrero APRN 1720 [facility] [address] [place] [address] 04/29/2025 2:45 PM EST Office Visit [facility] CARDIOLOGY [address] [facility] [address] [place] [address] Julien Llily MD 3000 [facility] [address] [place] [address] 11/03/2025 2:00 PM EDT Office Visit [facility] CARDIOLOGY [address] [facility] [address] [place] [phone] Domonique Alejandre MD [address] [facility] [address] [place] [address] documented as of this encounter Visit Diagnoses Not on filedocumented in this encounter Care Teams Electrician Front Relationship Specialty Start Date End Date Sravan Anderson MD [address] [facility] [address] [facility] [address] [place] [address] PCP - General Adolescent Medicine 06/09/21 documented as of this encounter
--- OUTSIDE RECORDS SUMMARY | 2025-03-14 13:25 | XMS_ITS | Encounter Summary ---
[facility] Organization [facility] Address [address] [place] [address] Care Team Providers Care Actuarial Science Professor Name Role Phone Sravan Anderson MD Primary Care Provider [phone] Encounter Details Date Type Department Care Team (Late st Contact Info) Description 01/13/2025 Readmission Management [facility] NURSE CALL CENTER [address] [place] [address] Inna Benson, RN Social History Tobacco Use Types Packs/Day Years Used Date Smoking Tobacco: Never Passive Smoke Exposure: Never Smokeless Tobacco: Never Alcohol Use Standard Drinks/Week Comments Never 0 (1 standard drink = 0.6 oz pur e alcohol) [facility] Utilities Answer Date Recorded In the past 12 months has [employer] electric, gas, oil, or water company threatened [...] and heating? 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 [place] Does the patient have one of the following disease processes/diagnoses(primary or secondary)? Cardiothoracic surgery Week 1 attempt successful? No Unsuccessful attempts Attempt 2 Inna Bynum - Registered Nurse documented in this encounter Plan of Treatment Upcoming Encounters Date Type Department Care Team (Late st Contact Info) Description 03/28/2025 3:30 PM EST Office Visit [facility] HEMATOLOGY & ONCOLOGY [address] [facility] [address] [place] [phone] Griselda Mccormack MD [address] [facility] [address] [place] [address] 04/07/2025 3:00 PM EST Office Visit [facility] CARDIOTHORACIC SURGERY [address] [facility] [address] [place] [address] Beryl Borrero APRN 1720 [facility] [address] [place] [address] 04/29/2025 2:45 PM EST Office Visit [facility] CARDIOLOGY [address] [facility] [address] [place] [address] Julien Lilly MD 3000 [facility] [address] [place], [place] [address] 11/03/2025 2:00 PM EDT Office Visit [facility] CARDIOLOGY [address] [facility] [address] [place] [phone] Domonique Alejandre MD 1720 [facility] [address] [place] [address] documented as of this encounter Visit Diagnoses Not on filedocumented in this encounter Care Teams Actuarial Science Professor Relationship Specialty Start Date End Date Sravan Anderson MD [address]10 [facility] [address] [place] [address] PCP - General Adolescent Medicine 06/09/21 documented as of this encounter
--- OUTSIDE RECORDS SUMMARY | 2025-03-14 13:25 | XMS_ITS | Encounter Summary ---
Author Organization [facility] Address [address] [place] [address] Care Team Providers Care Sas Clinical Programmer Name Role Phone Sravan Anderson MD Primary Care Provider [phone] Encounter Details Date Type Department Care Team (Latest Contact Info) Description 01/28/2025 Travel Social History Tobacco Use Types Packs/Day Years Used Date Smoking Tobacco: Never Passive Smoke Exposure: Never Smokeless Tobacco: Never Alcohol Use Standard Drinks/Week Comments Never 0 (1 standard drink = 0.6 oz pur e alcohol) [facility] Utilities Answer Date Recorded In the past 12 months has [employer] electric, gas, oil, or water company threatened [...] and heating? 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 Not on file documented as of this encounter Plan of Treatment Upcoming Encounters Date Type Department Care Team (Late st Contact Info) Description 03/28/2025 3:30 PM EST Office Visit [facility] HEMATOLOGY & ONCOLOGY [address] [facility] [address] [place] [address] Griselda Mccormack MD [address] [facility] [address] [place] [address] 04/07/2025 3:00 PM EST Office Visit [facility] CARDIOTHORACIC SURGERY [address] [facility] [address] [place] [address] Beryl Borrero APRN [address] [facility] [address] [place] [address] 04/29/2025 2:45 PM EST Office Visit [facility] CARDIOLOGY [address] [facility] [address] [place] [address] Julien Lilly MD 3000 [facility] [address] [place], [place] [address] 11/03/2025 2:00 PM EDT Office Visit [facility] CARDIOLOGY [address] [facility] [address] [place] [phone] Domonique Alejandre MD 1720 [facility] [address] [place], [place] [address] documented as of this encounter Visit Diagnoses Not on filedocumented in this encounter Care Teams Sas Clinical Programmer Relationship Specialty Start Date End Date Sravan Anderson MD [address] [place] [address] [place] [address] PCP - General Adolescent Medicine 06/09/21 documented as of this encounter
--- OUTSIDE RECORDS SUMMARY | 2025-03-14 13:25 | XMS_ITS | Encounter Summary ---
Author Organization [facility] Address [address] [place] [address] Care Team Providers Care Cut Out Press Operator Name Role Phone Sravan Anderson MD Primary Care Provider + [phone] Encounter Details Date Type Department Care Team (Latest Contact Info) Description 01/26/2025 Travel Social History Tobacco Use Types Packs/Day Years Used Date Smoking Tobacco: Never Passive Smoke Exposure: Never Smokeless Tobacco: Never Alcohol Use Standard Drinks/Week Comments Never 0 (1 standard drink = 0.6 oz pur e alcohol) [facility] Utilities Answer Date Recorded In the past 12 months has [employer] electric, gas, oil, or water company threatened [...] and heating? 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 Not on file documented as of this encounter Plan of Treatment Upcoming Encounters Date Type Department Care Team (Late st Contact Info) Description 03/28/2025 3:30 PM EST Office Visit [facility] HEMATOLOGY & ONCOLOGY [address] [facility] [address] [place] [address] Griselda Mccormack MD [address] [facility] [address] [place] [address] 04/07/2025 3:00 PM EST Office Visit [facility] CARDIOTHORACIC SURGERY [address] [facility] [address] [place] [phone] Beryl Borrero APRN 1720 [facility] [address] [place] [address] 04/29/2025 2:45 PM EST Office Visit [facility] CARDIOLOGY [address] [facility] [address] [place] [address] Julien Lilly MD 3000 [facility] [address] [place], [place] [address] 11/03/2025 2:00 PM EDT Office Visit [facility] CARDIOLOGY [address] [facility] [address] [place] [phone] Domonique Alejandre MD [address]20 [facility] [address] [place], [place] [address] documented as of this encounter Visit Diagnoses Not on filedocumented in this encounter Care Teams Cut Out Press Operator Relationship Specialty Start Date End Date Sravan Anderson MD [address] [place] [address] [place] [address] PCP - General Adolescent Medicine 06/09/21 documented as of this encounter
--- OUTSIDE RECORDS SUMMARY | 2025-03-14 13:25 | XMS_ITS | Encounter Summary ---
Author Organization [facility] yste Address [address] [place] [address] Care Team Providers Care Health And Safety Tech Name Role Phone Sravan Anderson MD Primary Care Provider + [phone] Reason for Visit * Reason Onset Date Comments Results 01/27/2025 Encounter Details Date Type Department Care Team (Late st Contact Info) Description 01/27/2025 Results Follow-Up [facility] CARDIOLOGY [address] [facility] [address] [address] Julien Lilly MD [address] [place] [address] [address] [place] [address] Results Social History Tobacco Use Types Packs/Day Years Used Date Smoking Tobacco: Never Passive Smoke Exposure: Never Smokeless Tobacco: Never Alcohol Use Standard Drinks/Week Comments Never 0 (1 standard drink = 0.6 oz pur e alcohol) [facility] Utilities Answer Date Recorded In the past 12 months has [employer], gas, oil, or water [employer] threatened to shut off services in your [...] and heating? 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 Otherwise her blood work looks surprisingly pretty good. Hemoglobin is not low. Does not appear to require a blood transfusion or iron infusion on my interpretation. Iron levels also look to be within normal range. I have copied her tea room manager on this lab work. I think that her fatigue and weakness is unlikely to be of cardiac etiology. I think more likely from poor appetite. She needs to follow-up with her primary care doctor to have this addressed. Please forward a copy of these labs and my progress note to primary care. She may still need a scope if she cannot tolerate anything by mouth. Ferritin; Iron Profile; Comprehensive Metabolic P Pt called informed of the above results, verbalized understanding. All questions answered. Lab workand last office note forwarded to PCP. documented in this encounter Plan of Treatment Upcoming Encounters Date Type Department Care Team (Late st Contact Info) Description 03/28/2025 3:30 PM EST Office Visit [facility] [address] [address] [place] [address] Griselda Mccormack MD [address] [facility] [address] [place] [address] 04/07/2025 3:00 PM EST Office Visit [facility] CARDIOTH[facility]ACIC SURGERY [address] [facility] [address] [place] [address] Beryl Borrero, MINE SAFETY DIRECTOR [address] [facility] [address] [place], [place] [id number] 04/29/2025 2:45 PM EST Office Visit [facility] [address] [facility] [address] [place] [id number] Julien Lilly MD [address] [facility] [address] [place] [address] 11/03/2025 2:00 PM EDT Office Visit [facility] [address] [facility] [address] [place] [address] Domonique Alejandre MD [address] [facility] [address] [place], [place] [id number] documented as of this encounter Visit Diagnoses Not on filedocumented in this encounter Care Teams Health And Safety Tech Relationship Specialty Start Date End Date Sravan Anderson MD [address] [facility] [address] [place] [address] PCP - General Adolescent Medicine 06/09/21 documented as of this encounter
--- OUTSIDE RECORDS SUMMARY | 2025-03-14 13:26 | XMS_ITS | Clinical Summary ---
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 Active memantine (NAMENDA) 10 MG tablet Take 1 tablet by mouth 2 (Two) Times a Day. Active donepezil (ARICEPT) 5 MG tablet Take 1 tablet by mouth Every Night. Active QUEtiapine XR (SEROquel XR) 200 MG 24 hr tablet Take 2 tablets by mouth Every Night. Active sitaGLIPtin-metFO RMIN (Janumet) 50-1000 MG per tablet Take 1 tablet by mouth 2 (Two) Times a Day With Meals. Active pantoprazole (PROTONIX) 40 MG EC tablet Take 1 tablet by mouth Daily. Active Cholecalciferol (Vitamin D3) 25 MCG capsule Take 1 capsule by mouth Daily. Active Magnesium 400 MG capsule Take 400 mg by mouth 2 (Two) Times a Day. Active carvedilol (COREG) 25 MG tabletIndications :Essential hypertension Take 1 tablet by mouth 2 (Two) Times a Day. 180 tablet 3 Active levothyroxine sodium (TIROSINT) 100 MCG capsule Take 88 mcg by mouth Every Morning. Active Cyanocobalamin (Vitamin B-12) 5000 MCG tablet dispersible Take 1 tablet by mouth Daily. Active apixaban (ELIQUIS) 5 MG tablet tabletIndications :PAF (paroxysmal atrial fibrillation) Take 1 tablet by mouth 2 (Two) Times a Day. 180 tablet 3 Active furosemide (LASIX) 40 MG tablet Take 1 tablet by mouth Daily As Needed (Swelling or Shortness of Breath). Active amLODIPine (NORVASC) 5 MG tablet Take 1 tablet by mouth Daily. 90 tablet 3 Active Active Problems Problem Noted Date Diagnosed Date Severe aortic valve stenosis 12/27/2024 S/p TAVR (transcatheter aort ic valve replacement), bioprosthetic 12/27/2024 Overview (12/27/2024): 20 mm Kimberlyn 3 Ultra tissue valve 12/27/24 Dr. [address] Dr. Alejandre Assessment & Plan (01/26/2025 3:50 PM EDT): S/p TAVR 12/2024. Reports dyspnea significantly improved. 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 Coronary angiography showed no significant disease Asymptomatic. Says she does not take aspirin because of allergy Continue Eliquis monotherapy and statin Assessment & Plan (10/20/2024 5:23 PM EDT): Mild CAC noted on PET attenuation images, perfusion normal. Coronary angiography showed no significant disease Continue Eliquis monotherapy and statin Patient has been on Plavix all this time. No stent within the past year. Will stop Plavix due to excessive superficial bleeding Assessment & Plan (09/10/2024 4:41 PM EDT): Mild coronary artery calcifications noted on PET attenuation images. However, perfusion is normal. Symptoms less likely to be that of ischemia Continue Eliquis monotherapy and statin Orders: Case Request Flat Sorter Processor: Coronary angiography, Left Heart Cath; Standing Clip Bilateral Groins; Standing Clip Bilateral Arms; Standing Record Actual Height & Weight Prior to Procedure; Standing Obtain Informed Consent in Pre-Op; Standing Notify Provider If Patient Taking Any of Listed Medications; Standing Notify Provider If Patient Has Contrast Allergy; Standing Notify Provider Lab Results; Standing Notify Provider Vital SIgns; Standing CBC (No Diff); Future Comprehensive Metabolic Panel; Future NPO After Midnight sodium chloride 0.9 % bolus 249.6 mL Obtain Informed Consent; Standing Abnormal result of other cardiovascular function study 09/10/2024 Assessment & Plan (09/10/2024 4:41 PM EDT): Orders: Case Request Flat Sorter Processor: Coronary angiography, Left Heart Cath; Standing Aortic valve stenosis s/p TAVR 12/27/2024 07/17/19 25 Assessment & Plan (01/26/2025 3:50 PM EDT): S/p TAVR 12/2024. Reports dyspnea significantly improved. Current ongoing symptoms of fatigue/weakness most likely due to anemia Will follow-up on 30-day post TAVR echo upcoming in the next few days Orders: CBC (No Diff); Future Comprehensive Metabolic Panel; Future Assessment & Plan (10/20/2024 5:23 PM EDT): Moderate to severe by echo, values discordant LHC gradient across the valve was 40 mmHg which is within severe range Patient encouraged to proceed with TAVR workup with Dr. Alejandre. All of her serologic parameters are improving. Sodium has normalized. Anemia is improving with iron infusions. Contacted Dr. Alejandre to help facilitate scheduling TAVR Assessment & Plan (09/10/2024 4:41 PM EDT): Valve area is severe but velocity parameters are not concordant I think her blood pressure fluctuations and heart failure likely contribute to her symptoms but core issue is most likely her aortic stenosis I discussed the potential of heart cath with patient and she is willing to proceed. I discussed the case with Dr. Alejandre and he has agreed to perform coronary angiography and cross the valve to measure gradients In the meantime, adjusting antihypertensives and diuretics as below Orders: Case Request Flat Sorter Processor: Coronary angiography, Left Heart Cath; Standing Clip Bilateral Groins; Standing Clip Bilateral Arms; Standing Record Actual Height & Weight Prior to Procedure; Standing Obtain Informed Consent in Pre-Op; Standing Notify Provider If Patient Taking Any of Listed Medications; Standing Notify Provider If Patient Has Contrast Allergy; Standing Notify Provider Lab Results; Standing Notify Provider Vital SIgns; Standing CBC (No Diff); Future Comprehensive Metabolic Panel; Future NPO After Midnight sodium chloride 0.9 % bolus 249.6 mL Obtain Informed Consent; Standing Assessment & Plan (08/11/2024 3:49 PM EDT): is moderate to severe. VERNON 0.8 cm , Vmax 3.9 m/s, mPG 33. I do think we need to exclude ischemia as underlying cause of her symptoms and get her blood pressure under control as well as her volume status before we decide on valve replacement Assessment & Plan (07/16/2024 2:15 PM EDT): Murmur on exam is suggestive of aortic stenosis, probably severe. Radiating to the carotids Unfortunate, outside echo report unavailable. Highly unlikely we will be able to obtain images In order to expedite further treatment, will repeat echo to evaluate transvalvular gradient Orders: Adult Transthoracic Echo Complete W/ Cont if Necessary Per Protocol; Future Chronic heart failure with p reserved ejection fraction (HFpEF) 07/16/2024 Assessment & Plan (01/26/2025 3:50 PM EDT): EF normal, grade II diastolic dysfunction. Euvolemic and compensated. Continue Lasix as needed Assessment & Plan (10/20/2024 5:23 PM EDT): EF normal, grade II diastolic dysfunction. Euvolemic and compensated. Sodium has normalized with decreased diuretic use. Continue daily Lasix per second dose as needed. Can skip some days based on symptoms. Nephrology appointment is pending in the setting of her CKD. Assessment & Plan (09/10/2024 4:41 PM EDT): EF normal, grade II diastolic dysfunction. Clinically, she appears to be euvolemic becomes very symptomatic after missing 2 days of Lasix Advise continuing Lasix daily with twice daily dosing for the next 3 to 4 days and then titrate as needed. Assessment & Plan (08/11/2024 3:49 PM EDT): EF is normal. Grade II diastolic dysfunction present. Clinically, she does appear to be relatively euvolemic but does endorse symptoms of increased left atrial pressures Advised increasing Lasix 40mg to twice daily for the next 3 to 4 days and monitoring weights closely Continue spironolactone Orders: BNP; Future Assessment & Plan (07/16/2024 3:08 PM EDT): Suspect patient had normal EF. Last known EF here from 2021 was normal. Clinically, patient appears relatively euvolemic today Advised continued Lasix 40 daily with second dose as needed based on weight and symptom Continue daily weights Continue spironolactone Checking labs today If renal function acceptable, will add Jardiance Orders: Comprehensive Metabolic Panel; Future CBC (No Diff); Future Lipid Panel; Future TSH Rfx On Abnormal To Free T4; Future Magnesium; Future BNP; Future PAF (paroxysmal atrial fibrillation) 07/16/2024 Assessment & Plan (01/26/2025 3:50 PM EDT): [id number] with previous history of stroke (2023). Stable and asymptomatic. Regular pulse on exam suggest sinus rhythm Continue Eliquis If she continues to have problems with anemia, I think she will need to be considered for Watchman. Also has history of traumatic subdural hematoma Assessment & Plan (10/20/2024 5:23 PM EDT): [id number] with previous history of stroke. Stable and asymptomatic. Having significant superficial bleeding while on Plavix and Eliquis. Suspect that Plavix was due to stroke diagnosis Stop Plavix. Continue Eliquis. Consider candidacy for Watchman considering her history of traumatic subdural hematoma after TAVR Assessment & Plan (09/10/2024 4:41 PM EDT): [id number] with previous history of stroke. Asymptomatic from this standpoint. No bleeding on Eliquis Continue Eliquis for now We will need to consider candidacy for Watchman considering her history of traumatic subdural hematoma. Assessment & Plan (08/11/2024 3:49 PM EDT): [id number] is 7 with previous history of stroke Patient was switched from Xarelto to Eliquis but says she never actually started Provided with samples and represcribing Eliquis 5 twice daily She has history of traumatic subdural hematoma. She may be a good candidate for Watchman in the future. Orders: apixaban (ELIQUIS) 5 MG tablet tablet; Take 1 tablet by mouth 2 (Two) Times a Day. Assessment & Plan (07/16/2024 3:08 PM EDT): [id number] is 7. History of previous stroke In sinus rhythm, ECG quite normal today. No bleeding on Xarelto and Plavix Switching from Xarelto to Eliquis in the setting of her CKD. Does not qualify for low-dose due to weight and age. History of traumatic subdural hematoma, may be a good candidate for Watchman in the future History of CVA (cerebrovascular accident) 2021 Assessment & Plan (07/16/2024 2:15 PM EDT): Reports stroke in 2023, is currently on Plavix and Xarelto which will increase her bleeding risk We will continue Plavix for now but will plan to discontinue it at some point in the future DM (diabetes mellitus) 06/09/2021 Assessment & Plan (07/16/2024 2:15 PM EDT): Last A1c was around 7 Repeating labs along with A1c today. Would like to start Farxiga or Jardiance if renal function will allow Orders: Hemoglobin A1c; Future Essential hypertension 06/09/2021 Assessment & Plan (10/20/2024 5:23 PM EDT): Blood pressures are now controlled. Goal less than 150/90, closer to 130/80 if can tolerate Irbesartan and spironolactone stopped due to hyperkalemia with her CKD Continue carvedilol and amlodipine Assessment & Plan (09/10/2024 4:41 PM EDT): Blood pressures are still very labile with some readings in the 150s to 160s at home despite carvedilol. Irbesartan and spironolactone stopped due to hyperkalemia with her CKD Increase carvedilol to 25 twice daily and monitor blood pressures Orders: carvedilol (COREG) 25 MG tablet; Take 1 tablet by mouth 2 (Two) Times a Day. Assessment & Plan (08/11/2024 3:49 PM EDT): Blood pressures are still a bit high which could be causing some of her symptoms in the setting of borderline severe . Also appears to have a sigmoid septum on echo. Will optimize by switching diltiazem to carvedilol. Patient will allow for 48 washout period. Rechecking blood work today and will consider increasing spironolactone Continue spironolactone. Was previously on a irbesartan Orders: Basic Metabolic Panel; Future carvedilol (COREG) 12.5 MG tablet; Take 1 tablet by mouth 2 (Two) Times a Day. Assessment & Plan (07/16/2024 2:15 PM EDT): Elevated but much better on recheck. Goal closer to 130/80 No changes today to allow for more aggressive diuresis Continue diltiazem, spironolactone, and irbesartan Iron deficiency anemia 06/09/2021 Assessment & Plan (01/26/2025 3:50 PM EDT): Had iron infusions before TAVR which was [...] care Orders: Iron Profile; Future Ferritin; Future Syncope and collapse 06/09/2021 Dementia 06/09/2021 Hypothyroidism 06/09/2021 HLD (hyperlipidemia) 06/09/2021 Anxiety and depression 06/09/2021 Syncope 06/09/2021 History of traumatic subdural hematoma Encounters Date Type Department Care Team Description 02/24/2025 Documentation [facility] [address] [place] [address] Beatris Ochoa APRN 02/10/2025 2:00 PM EDT Ancillary Procedure [facility] CARDIOTHORACIC SURGERY [address] [place] [address] S/P TAVR (transcatheter aortic valve replacement) 02/10/2025 1:30 PM EDT Office Visit [facility] CARDIOTHORACIC SURGERY [address] [place] [address] Ann Marie Stiles, BANQUET COOK Aortic valve stenosis s/p TAVR 12/27/2024 (Primary Dx); Chronic heart failure with preserved ejection fraction (HFpEF) 02/10/2025 Travel 01/28/2025 2:49 PM EDT - 01/28/2025 11:59 PM EDT Hospital Encounter [facility]VASIVE [facility] [place] [address] [place] [address] Domonique Alejandre MD Aortic stenosis, severe; S/p TAVR (transcatheter aortic valve replacement), bioprosthetic Discharge Disposition: Home or Self Care 01/28/2025 Travel 01/27/2025 Results Follow-Up [facility] [address] [facility] [address] [place] [address] Julien Lilly MD Results 01/26/2025 3:50 PM EDT Lab [facility] [place] [address] [facility] [address] [place] [address] S/p TAVR (transcatheter aortic valve replacement), bioprosthetic; Iron deficiency anemia due to chronic blood loss 01/26/2025 2:45 PM EDT Office Visit [facility] [address] [facility] [address] [place] [address] Julien Lilly MD S/p TAVR (transcatheter aortic valve replacement), bioprosthetic (Primary Dx); Aortic stenosis, severe; Iron deficiency anemia due to chronic blood loss; PAF (paroxysmal atrial fibrillation); Coronary artery disease involving absentee-shawnee coronary artery of absentee-shawnee heart with angina pectoris; Chronic heart failure with preserved ejection fraction (HFpEF) 01/26/2025 Travel 01/18/2025 Readmission Management [facility] [address] [place] [address] Martina Canales RN 01/13/2025 Readmission Management [facility] [address] [place] [address] Inna Benson, RN 01/11/2025 Refill [facility] [address] [facility] [address] [place] [address] Julien Lilly MD Med Refill 01/06/2025 Readmission Management [facility] [address] [place] [address] Lora Phan, ZELDA 01/04/2025 2:15 PM EDT Office Visit [facility] [address] [facility] [address] [place] [address] Sarah Lyle APRN S/p TAVR (transcatheter aortic valve replacement), bioprosthetic (Primary Dx); Essential hypertension; Mixed hyperlipidemia 01/04/2025 Travel 12/28/2024 Readmission Management [facility] [address] [place] [address] Ana Dangelo RN 12/27/2024 10:20 AM EDT Ancillary Procedure [facility] OR [address] [place] [address] 12/27/2024 8:25 AM EDT Ancillary Procedure [facility] [address] [facility] [place] [address] 12/27/2024 8:25 AM EDT Anesthesia Event Converted [facility] ANESTHESIA [address] [facility] [place] [address] 12/27/2024 8:24 AM EDT Anesthesia Event [facility] OR [address] [place] [address] Gilberto Gaitan Jr., MD 12/27/2024 8:23 AM EDT - 12/27/2024 10:01 AM EDT Surgery [facility] OR [address] [place] [address] Abhay oGnsalves MD TRANSCATHETER AORTIC VALVE REPLACEMENT 12/27/2024 6:16 AM EDT - 12/28/2024 4:04 PM EDT Hospital Encounter [facility] 4H [address] [place] [address] Abhay Gonsalves MD S/p TAVR (transcatheter aortic valve replacement), bioprosthetic (Primary Dx); Aortic valve disorder; Aortic stenosis, severe Discharge Disposition: Home or Self Care 12/27/2024 Travel 12/24/2024 3:00 PM EDT - 12/24/2024 11:59 PM EDT Hospital Encounter [facility] PULMONARY LAB [address] [place] [address] Discharge Disposition: Home or Self Care 12/24/2024 2:31 PM EDT - 12/24/2024 11:59 PM EDT Hospital Encounter [facility] XRAY [address] [place] [address] Discharge Disposition: Home or Self Care 12/24/2024 12:30 PM EDT Pre-Admission Testing [facility] PREADMISSION T [address] [place] [address] Aortic valve disorder; Abnormal finding of blood chemistry, unspecified; Abnormal coagulation profile; Encounter for therapeutic drug level monitoring 12/24/2024 Documentation [facility] [address] [facility] [address] [place] [address] Beatris Ochoa APRN 12/24/2024 Travel 12/17/2024 Refill [facility] [address] [facility] [address] [place] [address] Julien Lilly MD Med Refill 12/13/2024 Prep for Surgery [facility] CARDIOTH[facility]IC SURGERY [address] [facility] [address] [place] [address] Abhay Gonsalves MD Aortic valve disorder (Primary Dx); Abnormal finding of blood chemistry, unspecified; Abnormal coagulation profile; Encounter for therapeutic drug level monitoring from Last 3 Months Family History Medical History Relation Name Comments Lung disease Brother 1 kenneth Cancer Brother 2 Ozzy Cancer Brother 3 Prince Cancer Sister Carmen Relation Name Status Comments Brother 1 kenneth Brother 2 Ozzy Alive Brother 3 Prince Alive Father Mother Sister Carmen Alive Social History Tobacco Use Types Packs/Day Years Used Date Smoking Tobacco: Never Passive Smoke Exposure: Never Smokeless Tobacco: Never Tobacco Cessation:Counseling Given: Yes Alcohol Use Standard Drinks/Week Comments Never 0 (1 standard drink = 0.6 oz pur e alcohol) [facility] Utilities Answer Date Recorded In the past 12 months has [employer], gas, oil, or water [employer] threatened to shut off services in your [...] and heating? 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 Not on file Not on vivek e Not on file Last Filed Vital Signs Vital Sign Reading Time Taken Comments Blood Pressure 162/70 02/10/2025 1:55 PM EDT Pulse 72 01/26/2025 2:28 PM EDT Temperature 36.1 C (97 F) 02/10/2025 1:41 PM EDT Respiratory Rate 18 01/04/2025 2:32 PM EDT Oxygen Saturation 94% 02/10/2025 1:4 1 PM EDT Inhaled Oxygen Concentration - - Weight 81.6 kg (180 lb) 02/10/2025 1:41 PM EDT Height 154.9 cm (5' 1 ) 02/10/2025 1:41 PM EDT patient reported Body Mass Index 34.01 02/10/2025 1:41 PM EDT Plan of Treatment Upcoming Encounters Date Type Department Care Team (Late st Contact Info) Description 03/28/2025 3:30 PM EST Office Visit [facility] HEMATOLOGY & ONCOLOGY [address] [facility] [address] [place] [address] Griselda Mccormack MD [address] [place] [address] 04/07/2025 3:00 PM EST Office Visit [facility] CARDIOTH[facility]ACIC SURGERY [address] [place] [address] Beryl Borrero, BANQUET COOK [address] [facility] [address] [place] [address] 04/29/2025 2:45 PM EST Office Visit [facility] CARDIOLOG[facility] [address] [facility] [address] [place] [address] Julien Lilly MD [address] [facility] [address] [place] [address] 11/03/2025 2:00 PM EDT Office Visit [facility] [address] [place] [address] Domonique Alejandre MD [address] [facility] [address] [place], [place] [id number] Health Maintenance Due Date Last Done Comments DXA SCAN 1945 DIABETIC EYE EXAM 11/10/1957 DIABETIC FOOT EXAM 11/10/1955 URINE MICROALBUMIN-CREATININ E RATIO (uACR) 11/10/1957 TDAP/TD VACCINES (1 - Tdap) 11/10/1966 ZOSTER VACCINE (1 of 2) 11/10/1997 COVID-19 Vaccine (3 - Modern a risk series) 07/26/2020 06/28/2020, 05/31/2020 RSV Vaccine - Adults (1 - 1- dose 75+ series) 11/10/2022 ANNUAL WELLNESS VISIT 07/16/2024 HEPATITIS C SCREENING 07/16/2024 INFLUENZA VACCINE 11/19/2024 05/21/2021, , 01/15/2019, Additional history exists HEMOGLOBIN A1C 06/23/2025 12/24/2024, 06/20, 06/09/2021, Additional history exists LIPID PANEL 07/16/2025 07/16/2024 COLORECTAL CANCER SCREENING Discontinued FECAL OCCULT BLOOD TEST Discontinued 03/01/2014 Pneumococcal Vaccine 50+ Completed 06/14/2019, 01/20 COLOGUARD Discontinued COLON CANCER SCREENING 5 YEA R SIGMOIDOSCOPY Discontinued COLONOSCOPY Discontinued CT COLONOGRAPHY Discontinued FIT Testing (1 year) Discontinued Medical Devices Implanted Type Area Complex Director Device Identifier Shelf Expiration Date Model / Serial / Lot Kt Vlv Aort Trnscath Sapien3 W/Ultra/Ds 14f 20mm - [id number] Implanted:Qty: 1 on 12/27/2024 by Abhay Gonsalves MD at [facility] Implant N/A: Heart AYON [id number] SEBASTIÁN 10/29/2026 [id number] / / NR Procedures Procedure Name Priority Date/Time Associated Diagnosis Comments XR CHEST 1 VW Routine 02/10/2025 2:04 PM EDT S/P TAVR (transcatheter aortic valve replacement) ECHO COMPLETE W/ DOPPLER AND COLOR FLOW Routine 01/28/2025 3:33 PM EDT Aortic stenosis, severe S/p TAVR (transcatheter aortic valve replacement), bioprosthetic FERRITIN Routine 01/26/2025 3:48 PM EDT Iron deficiency anemia due to chronic blood loss IRON PROFILE Routine 01/26/2025 3:48 PM EDT Iron deficiency anemia due to chronic blood loss COMPREHENSIVE METABOLIC PANEL Routine 01/26/2025 3:48 PM EDT S/p TAVR (transcatheter aortic valve replacement), bioprosthetic CBC (NO DIFF) Routine 01/26/2025 3:48 PM EDT S/p TAVR (transcatheter aortic valve replacement), bioprosthetic REDS VEST Routine 01/04/2025 2:00 PM EDT S/p TAVR (transcatheter aortic valve replacement), bioprosthetic DUPLEX GROIN PSEUDOANEURYSM UNILATERAL CAR Routine 12/28/2024 1:52 PM EDT POCT GLUCOSE FINGERSTICK Routine 12/28/2024 11:49 AM EDT OSCILLATING POSITIVE EXPIRATORY PRESSURE (OPEP) Routine 12/28/2024 10:03 AM EDT OSCILLATING POSITIVE EXPIRATORY PRESSURE (OPEP) Routine 12/28/2024 10:03 AM EDT LIMITED 2D ECHO W/ LIMITED DOPPLER AND COLOR FLOW Routine 12/28/2024 8:24 AM EDT POCT GLUCOSE FINGERSTICK Routine 12/28/2024 7:37 AM EDT PREPARE RBC Routine 12/28/2024 7:33 AM EDT Aortic valve disorder ECG 12-LEAD Routine 12/28/2024 5:27 AM EDT BASIC METABOLIC PANEL Routine 12/28/2024 3:52 AM EDT CBC (NO DIFF) Routine 12/28/2024 3:52 AM EDT POTASSIUM Timed 12/27/2024 8:02 PM EDT POCT GLUCOSE FINGERSTICK Routine 12/27/2024 7:59 PM EDT POCT GLUCOSE FINGERSTICK Routine 12/27/2024 4:59 PM EDT INTRA-OP STRUCTURAL HEART JYOTSNA (CARDIOLOGY READ) Routine 12/27/2024 10:11 AM EDT BASIC METABOLIC PANEL Routine 12/27/2024 9:51 AM EDT CBC (NO DIFF) Routine 12/27/2024 9:51 AM EDT POCT GLUCOSE FINGERSTICK Routine 12/27/2024 9:42 AM EDT ECG 12-LEAD STAT 12/27/2024 9:29 AM EDT CARDIAC CATHETERIZATION Routine 12/28/19 9:22 AM EDT Aortic stenosis, severe POCT ACTIVATED CLOTTING TIME Routine 12/27/2024 9:01 AM EDT ANESTHESIA INTUBATION Routine 12/27/2024 8:39 AM EDT POCT SURGERY LABS Routine 12/27/2024 8:3 7 AM EDT ANESTHESIA JYOTSNA Routine 12/27/2024 8:24 AM EDT MA ECHO TRANSESOPHAG R-T 2D W/PRB IMG ACQUISJ I&R 12/27/2024 8:10 AM EDT Aortic stenosis, severe TRANSCATHETER AORTIC VALVE REPLACEMENT 12/27/2024 8:10 AM EDT Aortic stenosis, severe ANESTHESIA ARTERIAL LINE Routine 12/27/2024 7:55 AM EDT PROTIME-INR STAT 12/27/2024 7:23 AM EDT TYPE AND SCREEN STAT 12/27/2024 7:12 AM EDT POCT GLUCOSE FINGERSTICK Routine 12/27/2024 7:09 AM EDT SCANNED - TELEMETRY 12/27/2024 ONLY SPIROMETRY Routine 12/24/2024 3:37 PM EDT Aortic valve disorder XR CHEST PA AND LATERAL STAT 12/25/19 2:37 PM EDT Aortic valve disorder ECG 12-LEAD Routine 12/24/2024 1:48 PM EDT Aortic valve disorder CBC AND DIFFERENTIAL Routine 12/24/2024 1:24 PM EDT Aortic valve disorder TYPE AND SCREEN Routine 12/24/2024 1:24 PM EDT Aortic valve disorder FENTANYL, URINE Routine 12/24/2024 1:24 PM EDT Aortic valve disorder Encounter for therapeutic drug level monitoring CBC WITH AUTO DIFFERENTIAL Routine 12/24/2024 1:24 PM EDT Aortic valve disorder URINE DRUG SCREEN Routine 12/24/2024 1:2 4 PM EDT Aortic valve disorder Encounter for therapeutic drug level monitoring P2Y12 PLATELET INHIBITION Routine 12/24/2024 1:24 PM EDT Aortic valve disorder PROTIME-INR Routine 12/24/2024 1:24 PM EDT Aortic valve disorder APTT Routine 12/24/2024 1:24 PM EDT Aortic valve disorder Abnormal coagulation profile HEMOGLOBIN A1C Routine 12/24/2024 1:24 PM EDT Aortic valve disorder Abnormal finding of blood chemistry, unspecified MAGNESIUM Routine 12/24/2024 1:24 PM EDT Aortic valve disorder COMPREHENSIVE METABOLIC PANEL Routine 12/24/2024 1:24 PM EDT Aortic valve disorder LIPID PANEL Routine 07/16/2024 2:26 PM EDT Chronic heart failure with preserved ejection fraction (HFpEF) OCCULT BLOOD X 3, STOOL Routine 03/01/20 14 1:00 PM EST from Last 3 Months or Most Recently Relevant to Health Maintenance Results * XR Chest 1 View (02/10/2025 2:04 PM EDT) Anatomical Region Laterality Modality Body N/A Radiographic Flavia ging 02/10/2025 4:41 PM EDT Impressions 02/10/2025 4:47 PM EDT Impression: No acute cardiopulmonary abnormality is identified. Electronically Signed: Kayy Saldivar MD 02/10/2025 4:47 PM EDT Workstation ID: [id number] Narrative 02/10/2025 4:47 PM EDT XR CHEST 1 VW Date of Exam: 02/10/2025 1:58 PM EDT Indication: S/P TAVR 12/27/24. Comparison: Two-view chest x-ray 12/24/2024 Findings: New TAVR in place. Lungs appear clear. No pneumothorax is seen. Cardiomediastinal contours are stable. Procedure Note Kayy Saldivar MD - 02/10/2025 XR CHEST 1 VW Date of Exam: 02/10/2025 1:58 PM EDT Indication: S/P TAVR 12/27/24. Comparison: Two-view chest x-ray 12/24/2024 Findings: New TAVR in place. Lungs appear clear. No pneumothorax is seen.Cardiomediastinal contours are stable. IMPRESSION: Impression: No acute cardiopulmonary abnormality is identified. Electronically Signed: Kayy Saldivar MD 02/10/2025 4:47 PM EDT Workstation ID: [id number] Ann Marie Stiles APRN IMG DIAGNOSTIC IMAGING [facility] Final Result * ECHO COMPLETE W/ DOPPLER AND COLOR FLOW (01/28/2025 3:33 PM EDT) [facility] Signature EF(MOD-bp) 68.7 % LVIDd 3.7 cm LVIDs [...] MD CV ECHO ORDERABLES Final Resul t * Iron Profile (01/26/2025 3:48 PM EDT) Iron 79 37 - 145 mcg/dL 01/26/2025 11:40 PM EDT [facility] Iron Saturation (TSAT) 23 20 - 50 % 01/26/2025 11:40 PM EDT [facility] Transferrin 229 200 - 360 mg/dL 01/26/2025 11:40 PM EDT [facility] TIBC 341 298 - 536 mcg/dL 01/26/2025 11:40 PM EDT [facility] Blood Venipuncture / Unknown 01/26/2025 3:48 PM EDT 01/26/2025 3:57 PM EDT us Julien Lilly MD LAB BLOOD ORDERABLES Final Resu lt [facility]
[address] [place] [address], * (ABNORMAL) CBC (No Diff) (01/26/2025 3:48 PM EDT) Only the most recent of3 resultswithin the time period is included. WBC 5.09 3.40 - 10.80 10*3/mm3 01/26/2025 11:14 PM EDT [facility] RBC 3.78 3.77 - 5.28 10*6/mm3 01/26/2025 11:14 PM EDT [facility] Hemoglobin 11.5(L) 12.0 - 15.9 g/dL 01/26/2025 11:14 PM EDT [facility] Hematocrit 34.9 34.0 - 46.6 % 01/26/2025 11:14 PM EDT [facility] MCV 92.3 79.0 - 97.0 fL 01/26/2025 11:14 PM EDT [facility] MCH 30.4 26.6 - 33.0 pg 01/26/2025 11:14 PM EDT [facility] MCHC 33.0 31.5 - 35.7 g/dL 01/26/2025 11:14 PM EDT [facility] RDW 13.3 12.3 - 15.4 % 01/26/2025 11:14 PM EDT [facility] RDW-SD 43.8 37.0 - 54.0 fl 01/26/2025 11:14 PM EDT [facility] MPV 9.9 6.0 - 12.0 fL 01/26/2025 11:14 PM EDT [facility] Platelets 175 140 - 450 10*3/mm3 01/26/2025 11:14 PM EDT [facility] Blood Venipuncture / Unknown 01/26/2025 3:48 PM EDT 01/26/2025 3:57 PM EDT us Julien Lilly MD LAB BLOOD ORDERABLES Final Resu lt Performing Organization Address [facility]/ZIP Co de Phone Number [facility]
[address] [place] [address], * (ABNORMAL) Ferritin (01/26/2025 3:48 PM EDT) Ferritin 176.00(H) 13.00 - 150.00 ng/mL 01/26/2025 11:44 PM EDT [facility] Blood Venipuncture / Unknown 01/26/2025 3:48 PM EDT 01/26/2025 3:57 PM EDT Narrative [facility] - 01/26/2025 11:44 PM EDT Results may be falsely decreased if patient taking Biotin. us Julien Lilly MD LAB BLOOD ORDERABLES Final Resu lt Performing Organization Address [facility] Co de Phone Number [facility]
[address] [place] [address], * (ABNORMAL) Comprehensive Metabolic Panel (01/26/2025 3:48 PM EDT) Only the most recent of2 resultswithin the time period is included. Glucose 166(H) 65 - 99 mg/dL 01/26/2025 11:40 PM EDT [facility] BUN 15.0 8.0 - 23.0 mg/dL 01/26/2025 11:40 PM EDT [facility] Creatinine 1.27(H) 0.57 - 1.00 mg/dL 01/26/2025 11:40 PM EDT [facility] Sodium 136 136 - 145 mmol/L [facility]25 [facility] Potassium 4.8 3.5 - 5.2 mmol/L 01/26/2025 11:40 PM [facility] Chloride 101 98 - 107 mmol/L 01/26/2025 11:40 PM [facility] CO2 23.6 22.0 - 29.0 mmol/L 01/26/2025 11:40 PM [facility] Calcium 9.7 8.6 - 10.5 mg/dL 01/26/2025 11:40 PM [facility] Total Protein 7.7 6.0 - 8.5 g/dL 01/26/2025 11:40 PM [facility] Albumin 4.2 3.5 - 5.2 g/dL 01/26/2025 11:40 PM [facility] ALT (SGPT) 13 1 - 33 U/L 01/26/2025 11:40 PM [facility] AST (SGOT) 21 1 - 32 U/L 01/26/2025 11:40 PM [facility] Alkaline Phosphatase 92 39 - 117 U/L 01/26/2025 11:40 PM [facility] Total Bilirubin 0.3 0.0 - 1.2 mg/dL 01/26/2025 11:40 PM [facility] Globulin 3.5 gm/dL 01/26/2025 11:40 PM [facility] A/G Ratio 1.2 g/dL 01/26/2025 11:40 PM [facility] BUN/Creatinine Ratio 11.8 7.0 - 25.0 01/26/2025 11:40 PM [facility] Anion Gap 11.4 5.0 - 15.0 mmol/L 01/26/2025 11:40 PM [facility] eGFR 43.6(L) >60.0 mL/min/1.7 3 01/26/2025 11:40 PM [facility] Blood Venipuncture / Unknown 01/26/2025 3:48 PM EDT 01/26/2025 3:57 PM EDT Narrative [facility] - 01/26/2025 11:40 PM EDT GFR [...] MD LAB BLOOD ORDERABLES Final Resu lt [facility]
[address] [place] [address], [place] [phone] * ReDs Vest (01/04/2025 2:00 PM EDT) Absolute Lung Fluid Content 33 20 - 35 % us Sarah Lyle APRN PROCEDURE/MINOR SURGICAL ORD ERABLES Final Result * DUPLEX GROIN PSEUDOANEURYSM UNILATERAL CAR (12/28/2024 1:52 PM EDT) PROX SFA PSV RIGHT 156.0 cm/sec PROX PFA PSV RIGHT 111.0 cm/sec BH CV RIGHT GROIN PSA PROCEDURE SCRIPTING LRR 1.00 Anatomical Region Laterality Modality Vascular, Pelvis, Hip Ultrasound Narrative 12/28/2024 2:14 PM EDT No evidence of pseudoaneurysm and AV fistula in the right groin. Note made of highly mobile plaque versus suture in right common femoral artery Study Impression No evidence of pseudoaneurysm and AV fistula in the right groin. Study Findings The right common femoral artery flow is multiphasic. The right common femoral artery shows no evidence of AV fistula. The right common femoral artery shows no evidence of pseudoaneurysm. The right superficial femoral artery flow is multiphasic. The right superficial femoral artery shows no evidence of AV fistula . The right superficial femoral artery shows no evidence of pseudoaneurysm. The right deep femoral artery flow is multiphasic. The right deep femoral artery shows no evidence of AV fistula. The right deep femoral artery shows no evidence of pseudoaneurysm. Mobile foreign body noted in the ASE CERTIFIED TECHNICIAN near the Bifurcation (access site). Additional Study Details Study performed at bedside. The study is technically excellent for diagnosis. Eileen De Leon PA-C CV VASCULAR ORDERABLES Final Result * (ABNORMAL) POC Glucose TID AC (12/28/2024 11:49 AM EDT) Only the most recent of6 resultswithin the time period is included. [facility] Glucose 172(H) 70 - 130 mg/dL 12/28/2024 12:03 PM EDT [facility] Comment:Serial Number: [id number]: [id number] Blood 12/28/2024 11:4 9 AM EDT 12/28/2024 12:03 PM EDT Caity Sparrow MD POINT OF CARE TEST ORDERABLES Final Result [facility]
[address] [place] [address], * LIMITED 2D ECHO W/ LIMITED DOPPLER AND COLOR FLOW (12/28/2024 8:24 AM EDT) [facility] EF(MOD-bp) 53.3 % LVIDd 4.2 cm LVIDs 3.1 cm IVSd 1.20 cm LVPWd 1.20 cm FS 26.2 % IVS/LVPW 1.00 cm ESV(cubed) 29.8 ml LV Sys Vol (BSA corrected) 23.0 cm2 EDV(cubed) 74.1 ml LV Simms Vol (BSA corrected) 48.2 cm2 LV mass(C)d 178.2 grams LVOT area 3.1 cm2 LVOT diam 2.00 cm EDV(MOD-sp2) 79.4 ml EDV(MOD-sp4) 87.0 ml ESV(MOD-sp2) 36.8 ml ESV(MOD-sp4) 41.5 ml SV(MOD-sp2) 42.6 ml SV(MOD-sp4) 45.5 ml SVi(MOD-SP2) 23.6 ml/m2 SVi(MOD-SP4) 25.2 ml/m2 SVi (LVOT) 43.3 ml/m2 EF(MOD-sp2) 53.7 % EF(MOD-sp4) 52.3 % SV(LVOT) 78.2 ml LV V1 max 110.0 cm/sec LV V1 max PG 4.8 mmHg LV V1 mean PG 3.0 mmHg LV V1 VTI 24.9 cm Ao pk jacob 261.0 cm/sec Ao max PG 27.3 mmHg Ao mean PG 14.0 mmHg Ao V2 VTI 51.6 cm VERNON(I,D) 1.52 cm2 Dimensionless Index 0.48 (DI) Anatomical Region Laterality Modality Ultrasound Narrative 12/28/2024 4:13 PM EDT Left ventricular systolic function is normal. Calculated left ventricular EF = 53.3% Left ventricular wall thickness is consistent with mild concentric hypertrophy. Peak velocity of the flow distal to the aortic valve is 261 cm/s. Aortic valve mean pressure gradient is 14 mmHg. There is a TAVR valve present with no paravalvular leak and mean gradient of 15 mmHg There is a trivial pericardial effusion. Left Ventricle Left ventricular systolic function is normal. Calculated left ventricular EF = 53.3% Normal left ventricular cavity size noted. Left ventricular wall thickness is consistent with mild concentric hypertrophy. Aortic Valve No aortic valve regurgitation is present. Peak velocity of the flow distal to the aortic valve is 261 cm/s. Aortic valve mean pressure gradient is 14.0 mmHg. There is a 20 mm, TAVR valve present. There is a Transcatheter aortic valve replacement (20 mm Kimberlyn 3 Ultra tissue valve), placed on 12/27/2024 Pericardium There is a trivial pericardial effusion. us Colette Wade PA-C CV ECHO ORDERABLES Final Res ult * Prepare RBC, 2 Units (12/28/2024 7:33 AM EDT) Product Code [id number] [facility] Unit Number [id number] [facility] UNIT ABO A [facility] UNIT RH POS [facility] Crossmatch Interpretation Compatible [facility] Dispense Status RE [facility] Blood Expiration Date [facility] Blood Type Barcode 6200 [facility] Product Code [id number] [facility] Unit Number [id number] [facility] UNIT ABO A [facility] UNIT RH POS [facility] Crossmatch Interpretation Compatible [facility] Dispense Status RE [facility] Blood Expiration Date [facility] Blood Type Barcode 6200 [facility] Product Code [id number] [facility] Unit Number [id number] [facility] UNIT ABO A [facility] UNIT RH POS [facility] Crossmatch Interpretation Compatible [facility] Dispense Status RE [facility] Blood Expiration Date [facility] Blood Type Barcode 6200 [facility] Product Code [id number] [facility] Unit Number [id number] [facility] UNIT ABO A [facility] UNIT RH POS [facility] Crossmatch Interpretation Compatible [facility] Dispense Status RE [facility] Blood Expiration Date [facility] Blood Type Barcode 6200 [facility] Other Topography unknown / Unknown 12/27/2024 7:21 AM EDT us Marsha Aaron [facility] PRODUCT ORDERABLE S Edited Result - Final Performing Organization Address [facility]/ZIP Co de Phone Number [facility]
[address] [place] [address], * ECG 12 Lead Other; Post-Op TAVR (12/28/2024 5:27 AM EDT) Only the most recent of3 resultswithin the time period is included. QT Interval 446 ms ECG QTC Interval 495 ms ECG 12/28/2024 5:27 AM EDT 12/28/2024 5:16 PM EDT Narrative ECG - 12/28/2024 5:16 PM EDT Test Reason : Other~ Blood Pressure : */* mmHG Vent. Rate : 74 BPM Atrial Rate : 74 BPM P-R Int : 168 ms QRS Dur : 132 ms QT Int : 446 ms P-R-T Axes : 74 -40 113 degrees QTcB Int : 495 ms Normal sinus rhythm Left axis deviation Left bundle branch block Abnormal ECG When compared with ECG of 27-Dec-2024 09:29, premature supraventricular complexes are no longer present QT has shortened Confirmed by KENYETTA NOONAN ([id number]) on 12/28/2024 5:16:37 PM Referred By: Confirmed By: KENYETTA NOONAN Procedure Note Kenyetta Noonan MD - 12/28/2024 Test Reason : Other~ Blood Pressure : */* mmHG Vent. Rate : 74 BPM Atrial Rate : 74 BPM P-R Int : 168 ms QRS Dur : 132 ms QT Int : 446 ms P-R-T Axes : 74 -40 113 degrees QTcB Int : 495 ms Normal sinus rhythm Left axis deviation Left bundle branch block Abnormal ECG When compared with ECG of 27-Dec-2024 09:29, premature supraventricular complexes are no longer present QT has shortened Confirmed by KENYETTA NOONAN ([id number]) on 12/28/2024 5:16:37 PM Referred By: Confirmed By: KENYETTA NOONAN Colette Wade PA-C ECG ORDERABLES Final Result Performing Organization Address City/[facility]/ZIP Co de Phone Number ECG * (ABNORMAL) Basic Metabolic Panel (12/28/2024 3:52 AM EDT) Only the most recent of2 resultswithin the time period is included. Glucose 166(H) 65 - 99 mg/dL 12/28/2024 4:31 AM EDT [facility] BUN 16.5 8.0 - 23.0 mg/dL 12/28/2024 4:31 AM EDT [facility] Creatinine 1.46(H) 0.57 - 1.00 mg/dL 12/28/2024 4:31 AM EDT [facility] Sodium 137 136 - 145 mmol/L 12/28/2024 4:31 AM EDT [facility] Potassium 4.2 3.5 - 5.2 mmol/L 12/28/2024 4:31 AM EDT [facility] Chloride 100 98 - 107 mmol/L 12/28/2024 4:31 AM EDT [facility] CO2 25.0 22.0 - 29.0 mmol/L 12/28/2024 4:31 AM EDT [facility] Calcium 8.9 8.6 - 10.5 mg/dL 12/28/2024 4:31 AM EDT [facility] BUN/Creatinine Ratio 11.3 7.0 - 25.0 12/28/2024 4:31 AM EDT [facility] Anion Gap 12.0 5.0 - 15.0 mmol/L 12/28/2024 4:31 AM EDT [facility] eGFR 36.9(L) >60.0 mL/min/1.7 3 12/28/2024 4:31 AM T [facility] Blood Venipuncture / Unknown 12/28/2024 3:52 AM EDT 12/28/2024 4:07 AM EDT [facility] - 12/28/2024 4:31 AM EDT GFR Categories in Chronic Kidney Disease [...] does not include race as a factor Colette Wade PA-C LAB BLOOD ORDERABLES Final R esult Performing Organization Address City/[facility] Co de Phone Number [facility]
[address] [place] [address], * Potassium (12/27/2024 8:02 PM EDT) [facility] Potassium 4.6 3.5 - 5.2 mmol/L 12/27/2024 8:37 PM EDT [facility] Blood Venipuncture / Unknown 12/27/2024 8:02 PM EDT 12/27/2024 8:13 PM EDT Abhay Gonsalves MD LAB BLOOD ORDERABLES Final Resu lt Performing Organization Address [facility] de Phone Number [facility]
[address] [place] [address], * Intra-Op Structural Heart JYOTSNA (Cardiology Read) (12/27/2024 10:11 AM EDT) [facility] Echo EF Estimated 70.0 % LVOT diam [...] of oropharyngeal or esophageal trauma. us Julia Ward MD CV ECHO ORDERABLES Sasha l Result * TRANSFEMORAL TRANSCATHETER AORTIC VALVE REPLACEMENT (12/27/2024 9:22 AM EDT) Anatomical Region Laterality Modality Other Narrative 12/29/2024 11:19 AM EDT See dictated report Colette Wade PA-C CV CARDIAC CATH ORDERABLES F inal Result * (ABNORMAL) POC Activated Clotting Time (12/27/2024 9:01 AM EDT) Activated Clotting Time 320(H) 82 - 152 Seconds 12/27/2024 2:39 PM EDT [facility] Comment:Serial Number: [id number] Blood 12/27/2024 9:01 AM EDT 12/27/2024 2:39 PM EDT Abhay Gonsalves MD POINT OF CARE TEST ORDERABLES F inal Result [facility]
[address] [place] [address], * BH AN ETT AIRWAY (12/27/2024 8:39 AM EDT) Narrative Juan Diego Monroy CRNA - 12/27/2024 8:39 AM EDT Juan Diego Monroy CRNA 12/27/2024 8:40 AM Airway Reason: elective Date/Time: 12/27/2024 8:35 AM Airway not difficult General Information and Staff Patient location during procedure: OR SILO PAINTER/CAA: Juan Diego Monroy CRNA Indications and Patient Condition Indications for airway management: airway protection Preoxygenated: yes MILS not maintained throughout Mask difficulty assessment: 2 - vent by mask + OA or adjuvant +/- NMBA Final Airway Details Final airway type: endotracheal airway Successful airway: ETT Cuffed: yes Successful intubation technique: video laryngoscopy Endotracheal tube insertion site: oral Blade: [place] Blade size: 3 ETT size (mm): 7.0 Cormack-Lehane Classification: grade I - full view of glottis Placement verified by: chest auscultation and capnometry Cuff volume (mL): 8 Measured from: lips ETT/EBT to lips (cm): 19 Number of attempts at approach: 1 Assessment: lips, teeth, and gum same as pre-op and atraumatic intubation Additional Comments Negative epigastric sounds, Breath sound equal bilaterally with symmetric chest rise and fall us Gilberto Gaitan Jr., MD ANESTHESIA ORDERABLES F inal Result * (ABNORMAL) POC Surgery Labs (12/27/2024 8:37 AM EDT) Ionized Calcium 1.21 1.20 - 1.32 mmol/L 12/27/2024 2:39 PM EDT [facility] POC Potassium 4.1 3.5 - 4.9 mmol/L 12/27/2024 2:39 PM EDT [facility] Sodium 137(L) 138 - 146 mmol/L 12/27/2024 2:39 PM EDT [facility] Total CO2 26 24 - 29 mmol/L 12/27/2024 2:39 PM EDT [facility] Hemoglobin 10.2(L) 12.0 - 17.0 g/dL 12/27/2024 2:39 PM EDT [facility] Hematocrit 30(L) 38 - 51 % 12/27/2024 2:39 PM EDT [facility] pCO2, Arterial 39.4 35 - 45 mm Hg 12/27/2024 2:39 PM EDT [facility] pO2, Arterial 210(H) 80 - 105 mmHg 12/27/2024 2:39 PM EDT [facility] Comment:Serial Number: [id number] Base Excess 0.0000 -5 - 5 mmol/L 12/27/2024 2:39 PM EDT [facility] O2 Saturation, Arterial 100(H) 95 - 98 % 12/27/2024 2:39 PM EDT [facility] pH, Arterial 7.40 7.35 - 7.6 pH units 12/27/2024 2:39 PM EDT [facility] HCO3, Arterial 24.6 22 - 26 mmol/L 12/27/2024 2:39 PM EDT [facility] Glucose 130 70 - 130 mg/dL 12/27/2024 2:39 PM EDT [facility] Blood 12/27/2024 8:3 7 AM EDT 12/27/2024 2:39 PM EDT Abhay Gonsalves MD POINT OF CARE TEST ORDERABLES F inal Result [facility]
[address] [place] [address], * ANESTHESIA JYOTSNA (12/27/2024 8:24 AM EDT) Anatomical Region Laterality Modality Ultrasound Narrative 12/27/2024 8:24 AM EDT Juan Diego Monroy CRNA 12/27/2024 10:35 AM Intra-Op Anesthesia JYOTSNA Procedure Performed: Intra-Op Anesthesia JYOTSNA Start Time: 12/27/2024 8:37 AM End Time: 12/27/2024 9:10 AM Preanesthesia Checklist: Patient identified, IV assessed, risks and benefits discussed, monitors and equipment assessed, procedure being performed at surgeon's request and anesthesia consent obtained. General Procedure Information Diagnostic Indications for Echo: assessment of surgical repair Physician Requesting Echo: Abhay Gonsalves MD Location performed: OR Intubated Bite block not placed Heart visualized Probe Insertion: Easy Probe Type: Multiplane Modalities: 2D only, color flow mapping, continuous wave Doppler and pulse wave Doppler Echocardiographic and Doppler Measurements Ventricles Right Ventricle: Cavity size normal. Hypertrophy not present. Thrombus not present. Global function normal. Left Ventricle: Cavity size normal. Thrombus not present. Global Function normal. Ventricular Regional Function: 1- Basal Anteroseptal: normal 2- Basal Anterior: normal 3- Basal Anterolateral: normal 4- Basal Inferolateral: normal 5- Basal Inferior: normal 6- Basal Inferoseptal: normal 7- Mid Anteroseptal: normal 8- Mid Anterior: normal 9- Mid Anterolateral: normal 10- Mid Inferolateral: normal 11- Mid Inferior: normal 12- Mid Inferoseptal: normal 13- Apical Anterior: normal 14- Apical Lateral: normal 15- Apical Inferior: normal 16- Apical Septal: normal 17- [place]: normal Valves Aortic Valve: Annulus calcified. Stenosis severe. Area: 0.54 cm . Mean Gradient: 34 mmHg. Regurgitation trace. Leaflets calcified. Leaflet motions restricted. Mitral Valve: Annulus calcified. Stenosis not present. Mean Gradient: 2 mmHg. Vena Contracta Width: 0.3 cm. Regurgitation mild. Leaflets calcified and thickened. Leaflet motions normal. Tricuspid Valve: Annulus normal. Stenosis not present. Regurgitation trace. Leaflets normal. Pulmonic Valve: Annulus normal. Stenosis not present. Regurgitation absent. Aorta Ascending Aorta: Size normal. Dissection not present. Plaque thickness less than 3 mm. Mobile plaque not present. Aortic Arch: Size normal. Dissection not present. Plaque thickness less than 3 mm. Mobile plaque not present. Descending Aorta: Size normal. Dissection not present. Plaque thickness less than 3 mm. Mobile plaque not present. Atria Right Atrium: Size normal. Spontaneous echo contrast not present. Thrombus not present. Tumor not present. Device not present. Left Atrium: Size normal. Spontaneous echo contrast not present. Thrombus not present. Tumor not present. Device not present. Left atrial appendage normal. Septa Ventricular Septum: Intra-ventricular septum morphology normal. Other Findings Pericardium: pericardial effusion Pleural Effusion: none Pulmonary Arteries: normal Pulmonary Venous Flow: blunted (decreased) systolic flow Anesthesia Information Performed Personally Anesthesiologist: Gilberto Gaitan Jr., MD Echocardiogram Comments: Diagnostic intraoperative JYOTSNA performed for TAVR. Surgeon - Dr. Gonsalves Baseline Exam: - LV is normal in size and function without regional wall motion abnormalities. LVEF is >55% - RV is normal in size and function with preserved systolic function. - The AV is trileaflet and calcified with restriction to leaflet opening. There is trace AI and moderate to severe stenosis. Mean PG is 34mmHg and VERNON is 0.54cm^2. Diminsionless index is 0.25 - Mitral valve appear calcified (mild) with no evidence of stenosis. There is leaflet thickening and tethering c/w early rheumatic disease. There is broken cordae and slight prolapse with mild to moderate MR. - No other significant valvular abnormalities. - Small pericardial effusion. - No significant pathology in the visualized portions of the aorta. Post-procedure Exam: - Interval TAVR performed with 20mm valve. - Biventricular function is stable. No inotropic support. - There is a bioprosthetic valve in the absentee-shawnee aortic location. It appears well seated and leaflet exhibit adequate excursion. There is a small paravalvular leak near aMVL. Mean PG is 8mmHg and VERNON by continuity equation is 1.1cm^2. - MR appears moderate in immediate post-procedure time. - No other new valvular abnormalities. - Perciardial effusion appears stable. - No evidence of dissection in the visualized portions of the aorta. Juan Diego Monroy CRNA CV ECHO ORDERABLES Edited Resu lt - Final * Arterial Line (12/27/2024 7:55 AM EDT) Narrative Juan Diego Monroy CRNA - 12/27/2024 7:55 AM EDT Juan Diego Monroy CRNA 12/27/2024 8:24 AM Arterial Line Patient reassessed immediately prior to procedure Patient location during procedure: pre-op Start time: 12/27/2024 7:55 AM Stop Time:12/27/2024 8:00 AM Line placed for hemodynamic monitoring. Performed By Anesthesiologist: Gilberto Gaitan Jr., MD Preanesthetic Checklist Completed: patient identified, IV checked, site marked, risks and benefits discussed, surgical consent, monitors and equipment checked, pre-op evaluation and timeout performed Arterial Line Prep Service Director: cap, gloves and sterile barriers Prep: ChloraPrep Patient monitoring: blood pressure monitoring, continuous pulse oximetry and EKG Arterial Line Procedure Laterality:right Location: radial artery Catheter size: 20 G Guidance: ultrasound guided PROCEDURE NOTE/ULTRASOUND INTERPRETATION. Using ultrasound guidance the potential vascular sites for insertion of the catheter were visualized to determine the patency of the vessel to be used for vascular access. After selecting the appropriate site for insertion, the needle was visualized under ultrasound being inserted into the radial artery, followed by ultrasound confirmation of wire and catheter placement. There were no abnormalities seen on ultrasound; an image was taken; and the patient tolerated the procedure with no complications. Number of attempts: 1 Successful placement: yes Images: still images not obtained Post Assessment Dressing Type: line sutured, occlusive dressing applied, secured with tape and wrist guard applied. Complications no Circ/Move/Sens Assessment: normal and unchanged. Patient Tolerance: patient tolerated the procedure well with no apparent complications Juan Diego Porfirio SILO PAINTER ANESTHESIA ORDERABLES Final Re sult * Protime-INR (12/27/2024 7:23 AM EDT) Only the most recent of2 resultswithin the time period is included. Protime 14.9 12.2 - 15.3 Seconds 12/27/2024 7:55 AM EDT [facility] INR 1.10 0.89 - 1.12 12/27/2024 7:55 AM EDT [facility] Blood Line / Unknown 12/27/2024 7: 23 AM EDT 12/27/2024 7:23 AM EDT Abhay Gonsalves MD LAB BLOOD ORDERABLES Final Resu lt Performing Organization Address City/[facility]/ZIP Co de Phone Number [facility]
[address] [place] [address], * Type & Screen (12/27/2024 7:12 AM EDT) Only the most recent of2 resultswithin the time period is included. ABO Type A 12/27/2024 8:01 AM EDT [facility] RH type Positive 12/27/2024 8:01 AM EDT [facility] Antibody Screen Negative 12/27/2024 8:01 AM EDT [facility] T&S Expiration Date 12/30/2024 11:59:59 PM 12/27/2024 8:01 AM EDT [facility] Blood 12/27/2024 7:12 AM EDT 12/27/2024 7:21 AM EDT Abhay Gonsalves MD BLOOD BANK TEST ORDERABLES Edit ed Result - Final Performing Organization Address City/[facility]/ZIP Co de Phone Number [facility]
[address] [place] [address], * Telemetry Scan (12/27/2024) [facility] ECG ORDERABLES Final Result * ONLY SPIROMETRY (12/24/2024 3:37 PM EDT) Narrative Satish Jones MD - 12/31/2024 11:56 AM EDT There is a moderate nonspecific reduction of the flows with a preserved FEV1 to FVC ratio of 87%. The FEV1 is 1.29 L which is 73% of predicted. No evidence of obstruction. While technically nonspecific, restriction cannot be ruled out and I would recommend full pulmonary function testing with static lung volumes if clinically indicated. Electronically signed by Satish Jones MD, 12/31/24, 11:56 AM EDT. Former[facility] Aaron BANQUET COOK PFT ORDERABLES Final Result * Chest X-Ray PA & Lateral (12/24/2024 2:37 PM EDT) Anatomical Region Laterality Modality Body, Chest N/A Radiographic Flavia ging 12/24/2024 2:56 PM EDT Impressions 12/24/2024 2:57 PM EDT Impression: No acute cardiopulmonary abnormality is identified. Electronically Signed: Kayy Saldivar MD 12/24/2024 2:57 PM EDT Workstation ID: [id number] Narrative 12/24/2024 2:57 PM EDT XR CHEST PA AND LATERAL Date of Exam: 12/24/2024 2:32 PM EDT Indication: Pre-Op Cardiac Surgery. Aortic valve disorder. Comparison: Two-view chest x-ray 10/25/2024 Findings: Stable calcified granuloma in the mid right lung. Lungs appear clear. No pleural effusion is seen. Cardiomediastinal contours appear within normal limits. Procedure Note Kayy Saldivar MD - 12/24/2024 XR CHEST PA AND LATERAL Date of Exam: 12/24/2024 2:32 PM EDT Indication: Pre-Op Cardiac Surgery. Aortic valve disorder. Comparison: Two-view chest x-ray 10/25/2024 Findings: Stable calcified granuloma in the mid right lung. Lungs appear clear. Nopleural effusion is seen. Cardiomediastinal contours appear within normallimits. IMPRESSION: Impression: No acute cardiopulmonary abnormality is identified. Electronically Signed: Kayy Saldivar MD 12/24/2024 2:57 PM EDT Workstation ID: [id number] [employer] [facility] IMG DIAGNOSTIC IMAGING ORDER TOMMY Final Result * P2Y12 Platelet Inhibition (12/24/2024 1:24 PM EDT) P2Y12 Reactivity Unit 297 PRU DISK DIFFUSION 12/24/2024 2:14 PM EDT [facility] Blood Venipuncture / Unknown 12/24/2024 1:24 PM EDT 12/24/2024 1:51 PM EDT Narrative [facility] - 12/24/2024 2:14 PM EDT P2Y12 Interpretation: Pre-Drug normal reference range is 194-418 PRU. Test results are reported in P2Y12 reaction units (PRU). This measures the extent of platelet aggregation in the presence of P2Y12 inhibitor drugs, such as clopidogrel (Plavix), prasugrel (Effient), ticagrelor (Brilinta), ticlopidine (Ticlid). P2Y12 values <194 PRU (low end of reference range) are specific evidence of a P2Y12 inhibitor effect. Patients who have been treated with Glycoprotein IIb/IIIa inhibitors should not be tested until platelet function has recovered. This time period is approximately 14 days after discontinuation of abciximab (ReoPro) and up to 48 hours after discontinuation of eptifibatide (Integrilin) and tirofiban (Aggrastat). The P2Y12 test results should be interpreted in conjunction with other clinical and lab data available to the clinician. Marsha Walker BANQUET COOK LAB BLOOD ORDERABLES Final R esult [facility]
[address] [place] [address], * (ABNORMAL) CBC Auto Differential (12/24/2024 1:24 PM EDT) [facility] WBC 7.39 3.40 - 10.80 10*3/mm3 12/24/2024 2:01 PM EDT [facility] RBC 3.92 3.77 - 5.28 10*6/mm3 12/24/2024 2:01 PM EDT [facility] Hemoglobin 11.5(L) 12.0 - 15.9 g/dL 12/24/2024 2:01 PM EDT [facility] Hematocrit 35.3 34.0 - 46.6 % 12/24/2024 2:01 PM EDT [facility] MCV 90.1 79.0 - 97.0 fL 12/24/2024 2:01 PM EDT [facility] MCH 29.3 26.6 - 33.0 pg 12/24/2024 2:01 PM EDT [facility] MCHC 32.6 31.5 - 35.7 g/dL 12/24/2024 2:01 PM EDT [facility] RDW 15.4 12.3 - 15.4 % 12/24/2024 2:01 PM EDT [facility] RDW-SD 49.7 37.0 - 54.0 fl 12/24/2024 2:01 PM EDT [facility] MPV 9.4 6.0 - 12.0 fL 12/24/2024 2:01 PM EDT [facility] Platelets 205 140 - 450 10*3/mm3 12/24/2024 2:01 PM EDT [facility] Neutrophil % 78.9(H) 42.7 - 76.0 % 12/24/2024 2:01 PM EDT [facility] Lymphocyte % 14.1(L) 19.6 - 45.3 % 12/24/2024 2:01 PM EDT [facility] Monocyte % 4.9(L) 5.0 - 12.0 % 12/24/2024 2:01 PM EDT [facility] Eosinophil % 1.4 0.3 - 6.2 % 12/24/2024 2:01 PM EDT [facility] Basophil % 0.3 0.0 - 1.5 % 12/24/2024 2:01 PM EDT [facility] Immature Grans % 0.4 0.0 - 0.5 % 12/24/2024 2:01 PM EDT [facility] Neutrophils, Absolute 5.84 1.70 - 7.00 10*3/mm3 12/24/2024 2:01 PM EDT [facility] Lymphocytes, Absolute 1.04 0.70 - 3.10 10*3/mm3 12/24/2024 2:01 PM EDT [facility] Monocytes, Absolute 0.36 0.10 - 0.90 10*3/mm3 12/24/2024 2:01 PM EDT [facility] Eosinophils, Absolute 0.10 0.00 - 0.40 10*3/mm3 12/24/2024 2:01 PM EDT [facility] Basophils, Absolute 0.02 0.00 - 0.20 10*3/mm3 12/24/2024 2:01 PM EDT [facility] Immature Grans, Absolute 0.03 0.00 - 0.05 10*3/mm3 12/24/2024 2:01 PM EDT [facility] nRBC 0.0 0.0 - 0.2 /100 WBC 12/24/2024 2:01 PM EDT [facility] Blood Venipuncture / Unknown 12/24/2024 1:24 PM EDT 12/24/2024 1:48 PM EDT Marsha Walker APRN LAB BLOOD ORDERABLES Final R esult [facility]
[address] [place] [address], * (ABNORMAL) Urine Drug Screen - Urine, Clean Catch (12/24/2024 1:24 PM EDT) [facility] THC, Screen, Urine Negative Negative 2024 3:30 PM EDT [facility] Phencyclidine (PCP), Urine Negative Negative 12/24/2024 3:30 PM EDT [facility] Cocaine Screen, Urine Negative Negative 12/24/2024 3:30 PM EDT [facility] Methamphetamine, Ur Negative Negative 12/24/2024 3:30 PM EDT [facility] Opiate Screen Negative Negative 12/24/2024 3:30 PM EDT [facility] Amphetamine Screen, Urine Negative Negative 12/24/2024 3:30 PM EDT [facility] Benzodiazepine Screen, Urine Negative Negative 12/24/2024 3:30 PM EDT [facility] Tricyclic Antidepressants Screen Positive(A) Negative 12/24/2024 3:30 PM EDT [facility] Methadone Screen, Urine Negative Negative 12/24/2024 3:30 PM EDT [facility] Barbiturates Screen, Urine Negative Negative 12/24/2024 3:30 PM EDT [facility] Oxycodone Screen, Urine Negative Negative 12/24/2024 3:30 PM EDT [facility] Buprenorphine, Screen, Urine Negative Negative 12/24/2024 3:30 PM EDT [facility] Urine Urine specimen obtained by clean catch procedure / Unknown Collection / Unknown 12/24/2024 1:24 PM EDT 12/24/2024 3:18 PM EDT [facility] - 12/24/2024 3:30 PM EDT Cutoff For Drugs Screened: Amphetamines 500 ng/ml Barbiturates 200 ng/ml Benzodiazepines 150 ng/ml Cocaine 150 ng/ml Methadone 200 ng/ml Opiates 100 ng/ml Phencyclidine 25 ng/ml THC 50 ng/ml Methamphetamine 500 ng/ml Tricyclic Antidepressants 300 ng/ml Oxycodone 100 ng/ml Buprenorphine 10 ng/ml The normal value for all drugs tested is negative. This report includes unconfirmed screening results, with the cutoff values listed, to be used for medical treatment purposes only. Unconfirmed results must not be used for non-medical purposes such as employment or legal testing. Clinical consideration should be applied to any drug of abuse test, particularly when unconfirmed results are used. [facility] URINE ORDERABLES Final Resul t Performing Organization Address [facility] de Phone Number [facility]
[address] [place] [address], * Fentanyl, Urine - Urine, Clean Catch (12/24/2024 1:24 PM EDT) Fentanyl, Urine Negative Negative 12/24/2024 4:06 PM EDT [facility] Urine Urine specimen obtained by clean catch procedure / Unknown Collection / Unknown 12/24/2024 1:24 PM EDT 12/24/2024 3:18 PM EDT [facility] - 12/24/2024 4:06 PM EDT Negative Threshold: Fentanyl 5 ng/mL The normal value for the drug tested is negative. This report includes final unconfirmed screening results to be used for medical treatment purposes only. Unconfirmed results must not be used for non-medical purposes such as employment or legal testing. Clinical consideration should be applied to any drug of abuse test, particularly when unconfirmed results are used. [facility] URINE ORDERABLES Final Resul t Performing Organization Address [facility] de Phone Number [facility]
[address] [place] [address], * PTT (12/24/2024 1:24 PM EDT) PTT 33.9 22.0 - 39.0 seconds 12/24/2024 2:14 PM EDT [facility] Blood Venipuncture / Unknown 12/24/2024 1:24 PM EDT 12/24/2024 1:[facility] - 12/24/2024 2:14 PM EDT PTT = The equivalent PTT values for the therapeutic range of heparin levels at 0.3 to 0.5 U/ml are 60 to 70 seconds. [employer] BANQUET COOK LAB BLOOD ORDERABLES Final R esult Performing Organization Address City/[facility]/ZIP Co de Phone Number [facility]
[address] [place] [address], * Magnesium (12/24/2024 1:24 PM EDT) Pathologist [place] [facility] Magnesium 1.7 1.6 - 2.4 mg/dL 12/24/2024 2:19 PM EDT [facility] Blood Venipuncture / Unknown 12/24/2024 1:24 PM EDT 12/24/2024 1:48 PM EDT [facility]LOOD ORDERABLES Final R esult Performing Organization Address [facility] Co de Phone Number [facility]
[address] [place] [address], [place] [phone] * (ABNORMAL) Hemoglobin A1c (12/24/2024 1:24 PM EDT) Hemoglobin A1C 6.47(H) 4.80 - 5.60 % 12/24/2024 3:25 PM EDT [facility] Blood Venipuncture / Unknown 12/24/2024 1:24 PM EDT 12/24/2024 1:48 PM EDT Narrative [facility] - 12/24/2024 3:25 PM EDT Hemoglobin A1C Ranges: Increased Risk for Diabetes 5.7% to 6.4% Diabetes >= 6.5% Diabetic Goal < 7.0% [employer] BANQUET COOK LAB BLOOD ORDERABLES Final R esult Performing Organization Address City/[facility]/ZIP Co de Phone Number [facility]
[address] [place] [address], * (ABNORMAL) Lipid Panel (07/16/2024 2:26 PM EDT) Total Cholesterol 154 0 - 200 mg/dL 07/17/2024 12:07 AM EDT [facility] Triglycerides 74 0 - 150 mg/dL 07/17/2024 12:07 AM EDT [facility] HDL Cholesterol 67(H) 40 - 60 mg/dL 07/17/2024 12:07 AM EDT [facility] LDL Cholesterol 73 0 - 100 mg/dL 07/17/2024 12:07 AM EDT [facility] VLDL Cholesterol 14 5 - 40 mg/dL 07/17/2024 12:07 AM EDT [facility] LDL/HDL Ratio 1.08 07/17/2024 12:07 AM EDT [facility] Blood Venipuncture / Unknown 07/16/2024 2:26 PM EDT 07/16/2024 2:26 PM EDT Narrative [facility] - 07/17/2024 12:07 AM EDT Cholesterol Reference Ranges (U.S. Department of Health and Human Services ATP III Classifications) Desirable <200 mg/dL Borderline High 200-239 mg/dL High Risk >240 mg/dL Triglyceride Reference Ranges (U.S. Department of Health and Human Services ATP III Classifications) Normal <150 mg/dL Borderline High 150-199 mg/dL High 200-499 mg/dL Very High >500 mg/dL HDL Reference Ranges (U.S. Department of Health and Human Services ATP III Classifications) Low <40 mg/dl (major risk factor for CHD) High >60 mg/dl ('negative' risk factor for CHD) LDL Reference Ranges (U.S. Department of Health and Human Services ATP III Classifications) Optimal <100 mg/dL Near Optimal 100-129 mg/dL Borderline High 130-159 mg/dL High 160-189 mg/dL Very High >189 mg/dL LDL is calculated using the NIH LDL-C calculation. us Julien Lilly MD LAB BLOOD ORDERABLES Final Resu lt Performing Organization Address City/[facility] Co de Phone Number [facility]
[address] [place] [address], * Occult blood x 3, stool (03/01/2014 1:00 PM EST) Fecal Occult Blood Negative Negative [facility] OB Date 1 [id number] [facility] Fecal Occult Blood Negative Negative , No specimen received. [facility] OB Date 2 [id number] [facility] Fecal Occult Blood No specimen received. Negative , No specimen received. [facility] Stool specimen (specimen) 03/01/2014 1:00 PM EST Narrative [facility] - 03/02/2014 7:56 AM EST Specimen Type: Stool Rita Vasquez PA-C BODY FLUIDS AND STOOLS ORDER TOMMY Final Result Performing Organization Address [facility] Co de Phone Number [facility] [address] [place] [address], from Last 3 Months or Most Recently Relevant to Health Maintenance Insurance MEDICARE A & B Member Subscriber Plan / Payer (Ef fective 2012-Present) Name:Yuki Barraza Member ID:[id number] Relation to Subscriber:Self Name:Yuki Barraza Subscriber ID:[id number] Payer ID:[id number] Group ID:Not on file Type:Not on file Address: [facility] [id number] [address] Advance Directives * CPR (Attempt to Resuscitate) (Latest Code Status on File) Date Activated Date Inactivated Comments 12/27/2024 1:00 PM 12/28/2024 6:09 PM Question Answer Comments Code Status (Patient has no pulse and is not breathing): CPR (Attempt to Resuscitate) Medical Interventions (Patie nt has pulse or is breathing): Full Support * CPR (Attempt to Resuscitate) Date Activated Date Inactivated Comments 09/20/2024 8:49 AM 09/20/2024 4:57 PM Question Answer Comments Code Status (Patient has no pulse and is not breathing): CPR (Attempt to Resuscitate) Medical Interventions (Patie nt has pulse or is breathing): Full Support Level Of Support Discussed With: Patient * CPR (Attempt to Resuscitate) Date Activated Date Inactivated Comments 06/09/2021 8:42 AM 06/10/2021 8:14 PM Question Answer Comments Code Status (Patient has no pulse and is not breathing): CPR (Attempt to Resuscitate) Medical Interventions (Patie nt has pulse or is breathing): Full Support Level Of Support Discussed With: Patient Care Teams Linen Room Supervisor Relationship Specialty Start Date End Date Sravan Anderson MD [facility] [address] [facility] [place] [address] PCP - General Adolescent Medicine 06/09/21
--- OUTSIDE RECORDS SUMMARY | 2025-03-14 13:26 | XMS_ITS | Data Portability ---
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 PLAN: We are going to get her started in therapy, to work on scapular rehab for her shoulders and quad strengthening for her knee. I have also injected the subacromial space in the left shoulder. Check her back in a month. [email or web address] Not available 07/30/2017 03:39:03 07/14/2019 07/14/2019 My assessment is that of probable aggravation of lumbar arthritis. Plan: Today at her request, we have done a trigger point injection. We will check her back again in a month if needed. [email or web address] Not available 07/14/2019 22:32:04 Plan of Treatment Reminders Order Date Submit Date Provider Last Modified By Organization Details Last Modified Time Details Appointments None recorded. Lab None recorded. Referral None recorded. Procedures None recorded. Surgeries None recorded. Imaging XR, shoulder, 2 or more view - room 1 back hallway 018 [id number] Not available 8 09:17:28 XR, knee, 3 view - room 1 back hallway. 018 [id number] [email or web address] Not available 8 09:17:29 Medication Orders None recorded. Patient TargetsNo targets recorded. Patient Instructions Encounter Date Encounter Id Patient Instructions Last Modified By Organization Details Last Modified Time 07/29/2017 [id number] medial collatera l ligament injury: care instructions [email or web address] Not available 07/30/2017 13:38:22 07/14/2019 [id number] back care and preventing injuries: care instructions [email or web address] Not available 07/16/2019 08:51:51 getting back to normal after low back pain: care instructions [email or web address] Not available 07/16/2019 08:51:51 learning about relief for back pain [email or web address] Not available 07/16/2019 08:51:51 Reason for Referral None Reported. Results Created Date Observation Date Name Description Value Unit Range Abnormal Flag Note LastModifiedBy Organization Detail LastModifiedTime 07/30/19 18 07/29/2017 XR, knee, 3 view [facility] [address] [place] [address] Jennifer mancuso Name: YUKI mancuso : 948 [place] mancuso 1 Orderi [facility] ER er: JUAN Mancuso EXAM DATE: 2017 EXAM: XR RT KNEE 3 VIEWS COMPAR MARQUISE: 014 HISTOR Y: Follow -up of prior surger preetiDoris HANLEY GS: Again seen is a right knee total arthro plasty . There is no eviden ce of loosen ing. No fractu re is identi fied. Contra latera l knee: There is a total knee arthro plasty is place. IMPRES KACIE: 1. There is a right total knee arthro plasty in place withou t eviden ce of loosen ing. Interp reted By: Merle vogt MD Electr onical ly Signed By: Merle vogt MD on 018 8:54 AM [email or web address] [facility] [address] [place], [place], [address], 07/29/2017 09:37:40 07/30/19 18 07/29/2017 XR, shoul nanette, 2 or more view [facility] [address] [place] [address] Jennifer mancuso Name: YUKI mancuso : 948 Jennifer mancuso 1 Orderi ng Provid er: JUAN Mancuso EXAM DATE: 2017 EXAM: XR LT SHOULD ER COMPLE TE RADIOG RAPHIC VIEWS: 3 COMPAR MARQUISE: None. HISTOR Y: Left should er pain. FINDIN GS: The bones of the should er are normal in alignm ent. There is no eviden ce of fractu re. There is mild degene rative change s at the acromi oclavi cular joint and along the glenoh umeral joint. The acromi oclavi cular and coraco clavic ular spacin g is normal . There is spurri ng along the greate r tubero sity of the humeru s. There are surgic al anchor s along the greate r tubero sity and distal clavic le consis tent with prior rotato r cuff repair and acromi oclavi cular ligame nt repair . The visual ized left ribs and left lung appear s normal . IMPRES KACIE: 1. There are mild degene rative change s in the left should er. Interp reted By: Merle vogt MD Electr onical ly Signed By: Merle vogt MD on 018 8:55 AM [email or web address] [facility]iology [place] [address] , [place], [address], 07/29/2017 09:37:40 07/14/19 20 07/14/2019 XR, hip, unila teral , 2 or 3 view [place] [facility] Simran me [address] [address] Pat[place]ick t Name: YUKI mancuso : 948 Jennifer mancuso 1 Orderi ng Provid er: JUAN Mancuso EXAM DATE: 2019 EXAM: XR RT HIP UNILAT ERAL, 2 OR 3 VWS COMPAR MARQUISE: 014 HISTOR Y: Right hip pain. Trauma FINDIN GS: Mild degene rative spurri ng involv ing the hips bilate rally. The alignm ent is intact . No conclu sive eviden ce of fractu re. Subtle lucenc ies are noted in the femora l neck region s bilate rally. Uncert ain etiolo gy. It would be diffic ult to exclud e myelom a. IMPRES KACIE: 1. Mild bilate ral hip degene rative change 2. Subtle lucenc ies involv ing femora l neck region s Interp reted By: Abhay Cook MD Electr onical ly Signed By: Ahbay Cook MD on 11:13 AM [email or web address] [facility] Radiology [facility] [address] , [place], [address], 07/16/2019 08:42:37 07/14/19 20 07/14/2019 XR, lumbo sacra l spine , 2 or 3 view [facility] [address] [address] Jennifer mancuso Name: YUKI mancuso : 948 Pat[address] t 1 Orderi ng Provid er: JUAN Mancuso EXAM DATE: 2019 EXAM: XR LUMBAR AP/LAT CLINIC AL INFORM ATION: Postop erativ e. IMAGES PROVID ED: AP, latera l, and coned- down views of the lumbar spine. COMPAR MARQUISE: None. FINDIN GS AND IMPRES KACIE: Spinal fusion is noted at L3-L4 level with pedicu lar screws and connec ting rods. Surgic al hardwa re is satisf actori ly placed . No eviden ce of loosen ing or infect ion is seen. Other levels are normal . Interp reted By: Ken Pizano MD Electr onical ly Signed By: Ken Pizano MD on 12:55 PM [email or web address] [address], [address], 07/16/2019 08:42:36 Result Notes Documentation Provider Name and Address Organization Details Recorded Time Xr, Knee, 3 View : [facility] [address] [place] [address] Patient Name: YUKI AZUL Patient : 1945 Patient Ordering Provider: JUAN MERAZ EXAM DATE: 07/29/2017 EXAM: XR RT KNEE 3 VIEWS COMPARISON: 11/12/2013 HISTORY: Follow-up of prior surgery. FINDINGS: Again seen is a right knee total arthroplasty. There is no evidence of loosening. No fracture is identified. Contralateral knee: There is a total knee arthroplasty is place. IMPRESSION: 1. There is a right total knee arthroplasty in place without evidence of loosening. Interpreted By: Luciano Slater MD MERAZ MD [address] [place] [address], [phone], [facility] 07/29/2017 09:37:40 Xr, Shoulder, 2 Or More View : [facility] [address] [place] [address] Patient Name: YUKI AZUL Patient : 1945 Patient Ordering Provider: JUAN MERAZ EXAM DATE: 07/29/2017 EXAM: XR LT SHOULDER COMPLETE RADIOGRAPHIC VIEWS: 3 COMPARISON: None. HISTORY: Left shoulder pain. FINDINGS: The bones of the shoulder are normal in alignment. There is no evidence of fracture. There is mild degenerative changes at the acromioclavicular joint and along the glenohumeral joint. The acromioclavicular and coracoclavicular spacing is normal. There is spurring along the greater tuberosity of the humerus. There are surgical anchors along the greater tuberosity and distal clavicle consistent with prior rotator cuff repair and acromioclavicular ligament repair. The visualized left ribs and left lung appears normal. IMPRESSION: 1. There are mild degenerative changes in the left shoulder. Interpreted By: Luciano Slater MD MERAZ MD [address] [place] [address], [phone], [facility] 07/29/2017 09:37:40 Xr, Lumbosacral Spine, 2 [facility] [address] [place] [address] Patient Name: YUKI AZUL Patient : 1945 Patient Ordering Provider: JUAN MERAZ EXAM DATE: 07/14/2019 EXAM: XR LUMBAR AP/LAT CLINICAL INFORMATION: Postoperative. IMAGES PROVIDED: AP, lateral, and coned-down views of the lumbar spine. COMPARISON: None. FINDINGS AND IMPRESSION: Spinal fusion is noted at L3-L4 level with pedicular screws and connecting rods. Surgical hardware is satisfactorily placed. No evidence of loosening or infection is seen. Other levels are normal. Interpreted By: Serg Pizano MD MERAZ MD [address] [place] [address], [phone], [facility] 07/16/2019 08:42:36 Xr, Hip, Unilateral, 2 Or 3 [facility] [address] [place] [address] Patient Name: YUKI AZUL Patient : 1945 Patient Ordering Provider: JUAN MERAZ EXAM DATE: 07/14/2019 EXAM: XR RT HIP UNILATERAL, 2 OR 3 VWS COMPARISON: 08/16/2013 HISTORY: Right hip pain. Trauma FINDINGS: Mild degenerative spurring involving the hips bilaterally. The alignment is intact. No conclusive evidence of fracture. Subtle lucencies are noted in the femoral neck regions bilaterally. Uncertain etiology. It would be difficult to exclude myeloma. IMPRESSION: 1. Mild bilateral hip degenerative change 2. Subtle lucencies involving femoral neck regions Interpreted By: Abhay Cook MD MERAZ MD [address] [place] [address], [phone], [facility] 07/16/2019 08:42:37 Problems Name Problem SNOMED Code Status Onset Date Resolution Date Notes Provider Name and Address Organization Details Recorded Time Functiona l diarrhea 45327784 Active 2014 From Automated Load;Prov ider: Amanda Pemberton;St atus: Active Not Available [facility] 6 04:18:09 Abdominal pain 57929625 Active 2014 From Automated Load;Prov ider: Amanda Pemberton;St atus: Active Not Available [facility] 6 04:18:09 Abnormal weight loss 864307957 Active 2014 From Automated Load;Prov ider: Amanda Pemberton;St atus: Active [facility] 6 04:18:09 Iron deficienc y anemia 50105890 Active 2014 From Automated Load;Prov ider: Amanda Pemberton;St atus: Active Not Available [facility] 6 04:18:09 Diarrhea 67496642 Active 2015 From Automated Load;Prov ider: Campbell Simmons;Stat us: Active Not Available [facility] 6 04:18:09 Complete fecal incontine nce 65395285860 30792 Active 2015 From Automated Load;Prov ider: Campbell Simmons;Stat us: Active Not Available [facility] 6 04:18:09 Urgent desire for stool 95911925 Active 2015 From Automated Load;Prov ider: Campbell Simmons;Stat us: Active Not Available [facility] 6 04:18:09 Functiona l encopresi s 259567987 Active 2015 From Automated Load;Prov ider: Satish Waterman;S tatus: Active Not Available [facility] 6 04:18:09 Problem Notes None recorded. Procedures Surgical History Date Name Laterality Status Provider Name and Address Organization Details Recorded Time 07/14/19 20 Injection - Joint/BursRoss kam completed JUAN MERAZ MD [address] [place] [address] [place], [phone], [facility] 07/14/2019 10:47:12 07/30/19 18 Injection - Joint/Ross Watson completed JUAN MERAZ MD [address] [place] [address] [place], [phone], [facility] 07/29/2017 09:02:59 Appendectomy completed Patito Osborne [facility] 07/29/2017 08:15:46 Cholecystectomy completed Patito Osborne [facility] 07/29/2017 08:16:01 Back Surgery completed Patito Osborne [facility] 07/29/2017 08:16:26 Total hysterectomy completed Gigi Zaman [facility] 07/29/2017 08:16:41 Breast Surgery completed Patito Osborne [facility] 07/29/2017 08:16:52 Carpal tunnel surgery completed Patito Osborne [facility] 07/29/2017 08:17:08 Joint Replacement completed Adwoa Osborne [facility] 07/29/2017 08:18:24 Orthopedic Surgery completed Gigi Zaman [facility] 07/29/2017 08:18:36 Back Surgery completed Patito Osborne [facility] 07/29/2017 08:18:51 Other completed Patito Osborne [facility] 07/29/2017 08:19:01 Imaging Results None recorded. Procedure Notes None recorded. Medical Equipment None Reported. Allergies Allergen ID Allergen Name Allergen Category Reaction Reaction Severity Criticality Documentation Date Start Date Code Code System Note Provider Name and Address Organization Details Recorded Time 877444 Demerol medicatio n Not available Not available Not available 03/14/20162009 93062 1 RxNorm Comme nt: Creat ed By: Jordan Marcos mar Date: 02/02 1:04: 35 PM; Not Available [facility] 6 10:21:48 19901122 Vistaril medicatio n Not available Not available Not available 03/14/20162009 73567 9 RxNorm Comme nt: Creat ed By: Jordan Marcos mar Date: 02/02 1:04: 23 PM; Not Available [facility] 6 12:17:40 19901124 aspirin medicatio n Not available Not available Not available 03/14/20162014 1191 RxNorm Sever ity: Sever e; Comme nt: adult stren gth - nose bleed s;Cre ated By: Mille r Nissi ;Crea mar Date: 02/01 1:09: 07 PM; Not Available [facility] 6 12:17:40 605921 Crestor medicatio n Not available Not available Not available 03/15/20162009 39069 4 RxNorm Comme nt: Creat ed By: Jordan Sultana ;Crea mar Date: 02/02 1:04: 07 PM; Not Available [facility] 6 03:40:27 944552 Bentyl medicatio n Not available Not available Not available 03/15/20162014 8 RxNorm Sever ity: Elver kaiser; Comme nt: Pedro lozano to focus ;Crea mar By: Jeyson Hitchcock ;Crea mar Date: 03/08 9:04: 56 AM; Not Available [facility] 6 08:17:49 Medications Name Sig Start Date Stop Date Status Note LastModified by Organization Details LastModified Time donepezil 5 mg tablet Take 1 tablet every day by oral route. active Not Available Not Available No t Available indapamid e 2.5 mg tablet Daily 07/13 completed Frequenc y: daily;Me dication Descript ion: indapami de; Dosage:1 ; Route:or al; refills: 0; Quantity :90.000 tablet Not Available Not Available Not Available clonazepa m 1 mg tablet Daily 07/13 completed Frequenc y: daily;Me dication Descript ion: clonazep am; Dosage:1 ; Route:or al; refills: 0; Quantity :135.000 tablet Not Available Not Available Not Available Zyrtec 10 mg tablet 07/13 completed Duration : 10 days;Med ication Descript ion: cetirizi ne; Route:or al; refills: 0; Quantity :30 tablet Not Available Not Available Not Available quetiapin e 100 mg tablet Take 1 tablet every day by oral route at bedtime. active Not Available Not Available No t Available levothyro xine 100 mcg tablet active Medicati on Descript ion: levothyr oxine; Route:or al; Quantity :90.000 tablet Not Available Not Available Not Available pravastat in 80 mg tablet Bedtime active Frequenc y: hs;Medic ation Descript ion: pravasta tin; Dosage:1 ; Route:or al; refills: 0; Quantity :90.000 tablet Not Available Not Available Not Available Imodium A-D 2 mg tablet As needed active Duration : 10 days;Dilip quency: prn;Medi cation Descript ion: loperami de; Route:or al; refills: 0; Quantity :42 tablet Not Available Not Available Not Available pantopraz ole 40 mg tablet,de layed release Daily 07/13 completed Frequenc y: daily;Me dication Descript ion: pantopra zole; Dosage:1 ; Route:or al; refills: 0; Quantity :90.000 Not Available Not Available Not Available metformin 1,000 mg tablet Two times a day 07/29 completed Frequenc y: bid;Medi cation Descript ion: metformi n; Dosage:1 ; Route:or al; refills: 0; Quantity :180.000 tablet Not Available Not Available Not Available chlordiaz epoxide-c lidinium 5 mg-2.5 mg capsule before meals and at bedtime active Frequenc y: ac and hs;Alt Frequenc y: prn;Medi cation Descript ion: chlordia zepoxide -clidini um; Dosage:1 ; Route:or al; refills: 0; Quantity :120 capsule Not Available Not Available Not Available diclofena c sodium 75 mg tablet,de layed release Take 1 tablet twice a day by oral route. 07/13 completed Not Available Not Available Not Available Nasonex 50 mcg/actua tion [place] Daily active Instruct ions: each nostril; Frequenc y: daily;Al t Frequenc y: prn;Medi cation Descript ion: mometaso ne nasal; Dosage:2 ; Route:na minal; refills: 5; Quantity :1 spray Not Available Not Available Not Available Pepcid 20 mg tablet Take 1 tablet twice a day by oral route. active Not Available Not Available No t Available losartan 100 mg tablet Daily active Frequenc y: daily;Me dication Descript ion: losartan ; Dosage:1 ; Route:or al; refills: 0 Not Available Not Available Not Available 16.2 mg-0.1037 mg-0.0194 mg tablet As Directed 07/29 completed Duration : 10 days;Dilip quency: as direct.; Alt Frequenc y: prn;Medi cation Descript ion: atropine /hyoscya mine/PB/ scopolam ine; Dosage:a s directed ; Route:or al; refills: 0; Quantity :120 tablet Not Available Not Available Not Available Lexapro 10 mg tablet Daily 2019 active Duration : 30 days;Dilip quency: daily;Me dication Descript ion: escitalo pram; Dosage:1 /2; Route:or al; refills: 5; Quantity :30 tablet Not Available Not Available Not Available memantine 10 mg tablet Take 1 tablet twice a day by oral route. active Not Available Not Available No t Available Vitamin B-12 injectio n once a week active Frequenc y: as direct.; Medicati on Descript ion: cyanocob alamin; Dosage:a s directed ; Route:or al; refills: 0 Not Available Not Available Not Available Gas Relief (simethic one) As needed active Frequenc y: prn;Medi cation Descript ion: simethic one; Dosage:1 ; Route:or al; refills: 0 Not Available Not Available Not Available quetiapin e 50 mg tablet Take 1 tablet every day by oral route at bedtime. 07/13 completed Not Available Not Available Not Available Janumet 50 mg-1,000 mg tablet Take 1 tablet twice a day by oral route. active Not Available Not Available No t Available melatonin 10 mg capsule Take by oral route. active Not Available Not Available No t Available Ozempic 0.25 mg or 0.5 mg (2 mg/1.5 mL) subcutane ous pen injector Inject 1 mL every week by subcutan eous route. active Not Available Not Available No t Available Vitals Date Recorded Body height Pain severity - 0-10 verbal numeric rating [Score] - Reported Systolic And Diastolic Provider Name and Address Organization Details Last Updated DateTime 07/14/2019 154.94 cm 10 148/76 mm[Hg] Patito Osborne [facility] 07/14/2019 10:25:26 Date Recorded Body height Body mass index (BMI) Body weight Systolic And Diastolic Provider Name and Address Organization Details Last Updated DateTime 07/29/2017 154.94 cm 35.2 kg/m2 52712.88 g 165/73 mm[Hg] Patito Osborne [facility] 07/29/2017 08:10:36 Date Recorded Pain severity - 0-10 verbal numeric rating [Score] - Reported Provider Name and Address Organization Details Last Updated DateTime 07/29/2017 6 Not Available [facility] 8 10:53:45 Social History Question Answer Notes LastModified by Organizat ion Details LastModified Time Tobacco Smoking Status Never Smoker Patito Osborne [facility] 07/29/2017 08:14:41 Accident Related Injury Yes [email or web address] Information not available 07/14/2019 What Is Your Level Of Caffeine Consumption? Moderate 2 Cups Of Coffee Every Morning [email or web address] Information not available 07/29/2017 How Much Tobacco Do You Chew? None [email or web address] Information not available 07/14/2019 Which Of Your Hands Is Dominant? Right [email or web address] Information not available 07/29/2017 Rate The Severity Of Your Symptoms: (0-10 With 0=none And 10=worst Possible) 10 [email or web address] Information not available 07/14/2019 Date Of Injury: 07/04/2019 Information not available 07/14/2019 Have You Been Treated For This Problem Before? No [email or web address] Information not available 07/14/2019 How Long Have You Had These Symptoms? 07/04/2019 [email or web address] Information not available 07/14/2019 Will This Be Filed As Workers' Compensation? No [email or web address] Information not available 07/29/2017 Marital Status [email or web address] Information not available 07/14/2019 What Was The Date Of Your Most Recent Tobacco Screening? 07/29/2017 Information not available 06/08/2019 How Much Tobacco Do You Smoke? No [email or web address] Information not available 07/14/2019 How Many Years Have You Smoked Tobacco? 0 Information not available 07/14/2019 Work Related Injury? No [email or web address] Information not available 07/29/2017 Sex: Unknown Functional Status Question Answer Note LastModified by Organizat ion Details LastModified Time Do you use any illicit or recreational drugs? No [email or web address] Information not available 07/14/2019 What is your level of alcohol consumption? None [email or web address] Information not available 07/29/2017 Do you or have you ever used smokeless tobacco? Never used smokeless tobacco Information not available 07/14/2019 Are you currently employed? No Information not available 07/14/2019 What is your occupation? retired [email or web address] Information not available 07/14/2019 Do you or have you ever used e-cigarettes or vape? Never used electronic cigarettes [email or web address] Information not available 07/14/2019 Mental Status None recorded. Family History Relationship Description Onset Age of this Age Resolved Age Notes LastModified by Organization Details LastModified Time Unspecified Relation Myocardial infarction [email or web address] Not available 07/20 08:12:23 Unspecified Relation Asthma [email or web address] Not available 2017 08:14:06 Unspecified Relation Diabetes mellitus [email or web address] Not available 07/29 08:14:11 Unspecified Relation Hypertensive disorder [email or web address] Not available 07/29 08:14:22 Unspecified Relation Heart disease [email or web address] Not available 07/29 08:14:30 Medical History Condition Response Allergies/Hayfever Y Anxiety/Depression N Gout N Other Y Thyroid Disease Y Kidney Stones N Heart Conditions Y Hernia N Migraines N COPD N Glaucoma N Pneumonia Y Skin Problems N Immune System Disorder N Anesthesia Complications N Heart Attack ([place]) N Mental Illness N Neurological Problems N Diabetes Y Rheumatic Fever Y Bleeding Disorder N Arthritis Y Seizures/Epilepsy N Blood Clot N Tuberculosis N Genetic Disorder N AIDS/HIV N Cancer N Stroke Y Asthma N Blood Thinners N Alcohol Overuse/Alcohol Abuse N Sleep Apnea N High Cholesterol Y Liver Disease Y Included as Review of Systems Y Hypertension Y Osteoporosis N Kidney Disease N Gynecological HistoryNo gynecological history recorded. Obstetrics History GPAL:G 0 P 0 0 0 0 Past Encounters Encounter ID Performer Location Encounter Start Date Encounter Closed Date Diagnosis/Indication Diagnosis SNOMED-CT Code Diagnosis ICD10 Code Diagnosis IMO Codes Diagnosis Note [id number] JUNA MERAZ MD [facility] [address] [place] [phone] 07/29/2017 08:01:04 07/29/2017 09:17:28 Pain of left shoulder joint 1936860196 5760359 M25.512 Pain in right knee 27732 75495 02383 M25.561 Sprain of medial collateral ligament of knee 24685200 S83.411A Nontraumat ic partial rupture of left rotator cuff 0018169378 978364 M75.459 [id number] JUAN MERAZ MD [facility] [address] [place] [address] 07/14/2019 09:14:16 07/14/2019 11:08:55 Lumbar arthritis 955844111 M46.96 Low back pain 253859522 M54.5 Health Concerns Section Related Observation LastModified by Organization Detai ls LastModified Time None Recorded Concern Status LastModified by Organization Details LastModified Time None Recorded Advance Directives Directive None Recorded Payers Insurance Date Sequence Insurance Name Policy Number Policy Villa Covered Member ID Villa Member ID Guarantor Name 12/17/2024 2 [place] [id number] Yuki Kam McRevaaba [id number] Yuki Kam McJoon 12/17/2024 1 [employer] (MEDICARE) Yuki Kam Christi [id number] Yuki Kam Christi 12/17/2024 2 [place]MEDIC[place] SUPPLE[place]) [id number] Yuki Kam McJoon [id number] Yuki Kam McRevaaba Notes Date Note Type Note Provider Name and Address Organization Details Recorded Time 07/29/2017 text/html She developed left shoulder pain within the last couple of months. Right knee pain may have started about a year ago when she fell off a step, she does not remember too well. Since she has had a subdural she was treated for, but her reports that there was a problem and apparently even in recent month or two she has had some trouble with her knee. She mainly complains of pain on the medial aspect of the right knee. [place], [id number], [facility] 07/30/2017 13:38:33 07/14/2019 text/html She had a fall on July 03, has continued to have some discomfort. Denies any numbness or tingling. No bowel or bladder problems. No increased pain with coughing or sneezing. She has had a history of 4 back surgeries in the past. MD [address], [place], [address], [place] [facility] 07/16/2019 08:51:54 OBGyn Episode No OBEpisode recorded.
--- OUTSIDE RECORDS SUMMARY | 2025-03-14 13:26 | XMS_ITS | Clinical Summary ---
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
== END 2025-03-14 23:59 | disposition home or self-care (01) ==
LOC: RT 13:14
PROVIDERS: PCP Internal Medicine Adolescent Medicine; Visit Provider Nurse Practitioner Family
DX: I72.4 Aneurysm of artery of lower extremity (principal); I35.9 Nonrheumatic aortic valve disorder, unspecified
CPT/HCPCS: 93926

== ENCOUNTER 2025-03-14 14:26 | Outpatient (RCR) | payer MEDICARE, BC, SELFPAY | END 2025-03-14 23:59 | disposition home or self-care (01) | LOC: PT 14:26 | PROVIDERS: PCP Internal Medicine Adolescent Medicine; Visit Provider Thoracic Surgery (Cardiothoracic Vascular Surgery) | DX: R53.1 Weakness (principal); R53.83 Other fatigue; Z95.2 Presence of prosthetic heart valve | CPT/HCPCS: 97163 ==